=== PATIENT | female | born 1935 | race Caucasian/White ===

== ENCOUNTER → 2018-04-27 16:00 | Outpatient (CLI) | payer MEDICARE, SELFPAY | PROVIDERS: Family Provider Family Medicine; PCP Family Medicine | DX: Z23 Encounter for immunization (principal) | CPT/HCPCS: 90471; 90662 ==

== ENCOUNTER → 2018-12-01 11:22 | Outpatient (CLI) | payer MEDICARE, SELFPAY ==
--- NOTE | 2018-12-01 | DI.MG.S_ITS ---
BILATERAL DIGITAL SCREENING MAMMOGRAM 3D/2D WITH CAD: 12/01/2018 CLINICAL: Routine screening. Comparison is made to exams dated: 07/31/2017 mammogram, 07/17/2016 mammogram, and 07/16/2015 mammogram - [facility]. There are scattered fibroglandular elements in both breasts. Current study was also evaluated with a Computer Aided Detection (CAD) system. No significant masses, calcifications, or other findings are seen in either breast. There has been no significant interval change. IMPRESSION: NEGATIVE There is no mammographic evidence of malignancy. A 1 year screening mammogram is recommended. This exam was interpreted at Station ID: [id number]. NOTE: For mammograms, a report in lay terms will be sent to the patient. Approximately 15% of breast malignancies will not be visualized mammographically. In the management of a palpable breast mass, a negative mammogram must not discourage biopsy of a clinically suspicious lesion. Electronically Signed By: Elsa swann/latia:12/01/2018 13:39:00 letter sent: Normal Exam ACR BI-RADS Category 1: Negative [id number]
== END ==
PROVIDERS: PCP Family Medicine; Visit Provider Family Medicine
DX: Z12.31 Encounter for screening mammogram for malignant neoplasm of breast (principal)
CPT/HCPCS: 77063; 77067

== ENCOUNTER → 2019-05-31 12:38 | Outpatient (CLI) | payer MEDICARE, SELFPAY | PROVIDERS: PCP Family Medicine | DX: Z23 Encounter for immunization (principal) | CPT/HCPCS: 90471; 90662 ==

== ENCOUNTER → 2020-02-21 08:20 | Outpatient (CLI) | payer MEDICARE, OTHER, SELFPAY ==
[2020-02-21 09:48] LABS: Albumin 4.4 g/dL (3.5-5.0); BUN Creatinine Ratio 32.5 (6-22); Blood Urea Nitrogen 25 mg/dL (7-17); Calcium 9.6 mg/dL (8.4-10.2); Carbon Dioxide 28 mmol/L (22-32); Chloride 104 mmol/L (98-107); Estimated Glomerular Filt Rate > 60.0 mL/min (>60); Glucose 81 mg/dL (80-110); HEMOLYSIS < 15 (0-50); Phosphorous 4.4 mg/dL (2.8-4.1); Potassium 5.3 mmol/L (3.4-5.1); Sodium 138 mmol/L (137-145)
== END ==
PROVIDERS: PCP Family Medicine; Referring Provider Ophthalmology; Visit Provider Ophthalmology
DX: H53.431 Sector or arcuate defects, right eye (principal)
CPT/HCPCS: 36415; 80069

== ENCOUNTER → 2020-02-29 08:44 | Outpatient (CLI) | payer MEDICARE, OTHER, SELFPAY ==
--- NOTE | 2020-02-29 | DI.MRI.S_ITS ---
PROCEDURE: MR HEAD/BRAIN WO/W CON INDICATIONS: Sector or arcuate defects, unspecified eye TECHNIQUE: Noncontrast axial T1 spin echo, axial T2 fast spin echo, sagittal and axial FLAIR, coronal T2 fast spin echo, axial gradient echo, axial diffusion and ADC through the brain. After the administration of contrast, axial and coronal 3D VIBE or T1 spin echo with fat saturation through the brain. COMPARISON: [facility], CT, HEAD WITHOUT CONTRAST, 04/07/2017, 16:08. FINDINGS: Image quality: Excellent. CSF Spaces: Basal cisterns are patent. No extra-axial fluid collections. Ventricles are normal in size and shape. Brain: No midline shift. No intracranial bleeds or masses. No abnormal intracranial enhancement. The brainstem appears normal. Diffusion-weighted images demonstrate no acute ischemic insults. No chronic ischemic insults, but there is a mild to moderate degree of microvascular atherosclerotic change in the deep white matter of each hemisphere expected for age. Normal intravascular flow voids are present. Skull and face: Calvarial marrow is normal in signal. Orbits appear normal. Sinuses: Sinuses and mastoids appear clear. IMPRESSION: Source of current symptomatology is not filled. Cycr-al-ojzkctae microvascular atherosclerotic change is present within the deep white matter of each hemisphere, but no acute or subacute ischemic injuries seen nor is there impingement or abnormality involving the orbits bilaterally. Dictated by: Chan Ellsworth M.D. on 02/29/2020 at 10:09 Approved by: Chan Ellsworth M.D. on 02/29/2020 at 10:11
== END ==
PROVIDERS: PCP Family Medicine; Referring Provider Ophthalmology; Visit Provider Ophthalmology
DX: H53.453 Other localized visual field defect, bilateral (principal); H40.013 Open angle with borderline findings, low risk, bilateral; H35.373 Puckering of macula, bilateral; H53 Visual disturbances
CPT/HCPCS: 70553

== ENCOUNTER → 2020-04-30 14:24 | Outpatient (CLI) | payer MEDICARE, OTHER, SELFPAY ==
--- NOTE | 2020-04-30 14:27 | DI.RAD.S_ITS ---
PROCEDURE: XR SHOULDER LT MIN 2V INDICATIONS: LEFT SHOULDER PAIN TECHNIQUE: 3 views of the shoulder were acquired. COMPARISON: None. FINDINGS: Bones: No fracture. Moderate AC joint degeneration. Glenohumeral degenerative spurring and sclerosis. Soft tissues: No suspicious soft tissue calcifications. IMPRESSION: Degenerative changes as above. If the patient's pain or other symptoms persist, consider further evaluation with MRI Dictated by: Camron Manrique M.D. on 04/30/2020 at 16:08 Approved by: Camron Manrique M.D. on 04/30/2020 at 16:09
== END ==
PROVIDERS: PCP Family Medicine; Referring Provider Family Medicine; Visit Provider Family Medicine
DX: M25.512 Pain in left shoulder (principal); M19.012 Primary osteoarthritis, left shoulder
CPT/HCPCS: 73030

== ENCOUNTER 2020-05-30 09:00 | Outpatient (RCR) | payer MEDICARE, OTHER, SELFPAY ==
--- NOTE | 2020-05-25 10:00 | PT.OIE ---
Current Diagnoses Pain in left shoulder (05/25/20) Past Medical History (Last Reviewed 05/12/18 @ 11:30 by Reny Murillo DO) Aortic stenosis (Chronic 2012) Foot deformities, congenital (Chronic) Hyperlipidemia (Chronic) Osteoporosis (Chronic ~1989) Past Surgical History (Last Reviewed 05/12/18 @ 11:30 by Reny Murillo DO) History of aortic valve replacement with bioprosthetic valve (Resolved 2015) History of carpal tunnel release (Resolved) History of tonsillectomy (Resolved) Normal colonoscopy (Resolved 2005) Visit Care Team Role Provider Type Jonn Rangel MD Attending Provider Physician Primary Care Provider Referring Provider Specialty: [facility] Address: [address] [place] [address] Email: [email or web address] Physical Therapy Initial Evaluation PT-OP-A Visit Information Start: 05/25/20 07:31 Freq: Status: Active Protocol: Document 05/25/20 08:05 AMB (Rec: 05/28/20 07:58 AMB [email or web address]) Out-Patient Physical Therapy Visit Information Visit Information Visit Type Initial Evaluation Visit Start Time 08:15 Visit Stop Time 09:00 Total Visit Minutes 45 Visit Number 1 PT-OP-B Current Condition Start: 05/25/20 07:31 Freq: Status: Active Protocol: Document 05/25/20 08:05 AMB (Rec: 05/25/20 08:20 AMB [id number]) Current Condition History of Current Condition Onset Date a month ago Current Complaints L shoulder pain History of Current Condition Insidious onset L shoulder pain, has been getting better over the past few weeks. RHD. Aware of the left shoulder with ADLs, but overall things are getting better. Lives alone in a single level home, has neighbors that are quite helpful if she needs to lift something heavy. Treatment Goals Patient/Caregiver Goals Reduce pain in shoulder Prior Functional Status Baseline Function- ADL's Modified Independent Baseline Function- Mobility Modified Independent Current Functional Impairments (Reported) Functional Limitations- ADL's Needs to be careful with any reaching or lifting Personal Factors Other Personal Factors That May Effect Heart valve replacement, Therapy/Recovery osteoporosis, depression, osteoarthritis, on warfarin PT-OP-C Subjective Start: 05/25/20 07:31 Freq: Status: Active Protocol: Document 05/25/20 08:05 AMB (Rec: 05/28/20 07:58 AMB [email or web address]) Patient Questionnaires Lower Extremity Functional Scale LEFS Score 18 LEFS Impairment 1 to 19% Impaired (Score 63-79 ) OP-PT Pain Assessment Location Left Shoulder Intensity 3 Scale Used Numeric (0 - 10) PT-OP-F Manual Assessment Start: 05/25/20 07:31 Freq: Status: Active Protocol: Document 05/25/20 08:05 AMB (Rec: 05/28/20 07:58 AMB [email or web address]) Manual Assessments Soft Tissue Assessment Soft Tissue Mobility Assessment Tenderness at upper trap, lateral shoulder. Joint Mobility Assessment Joint Mobility Assessment Stiffness with all planes of joint mobilization, especially inferior PT-OP-K Range of Motion Start: 05/25/20 07:31 Freq: Status: Active Protocol: Document 05/25/20 08:15 AMB (Rec: 05/25/20 08:28 AMB [id number]) Shoulder Goniometric Range of Motion Shoulder Left Active Testing Position Sitting Flexion 105 Abduction 110 External Rotation at 90 degrees 60 Abduction Internal Rotation 70 Right Active Flexion 125 Abduction 135 PT-OP-L Special Tests Start: 05/25/20 07:31 Freq: Status: Active Protocol: Document 05/25/20 08:05 AMB (Rec: 05/28/20 07:58 AMB [email or web address]) Special Tests Shoulder Special Tests Empty Can Test Results + PT-OP-M Strength Start: 05/25/20 07:31 Freq: Status: Active Protocol: Document 05/25/20 08:05 AMB (Rec: 05/28/20 07:58 AMB [email or web address]) Shoulder Strength Shoulder Manual Muscle Testing Right Flexion 4 Good Extension 4 Good Abduction (C5) 4- Good- External Rotation 4- Good- Internal Rotation 4 Good Left Flexion 4 Good Extension 4 Good Abduction (C5) 4- Good- External Rotation 3 Fair Internal Rotation 4 Good PT-OP-Q Treatments Start: 05/25/20 07:31 Freq: Status: Active Protocol: Document 05/25/20 08:05 AMB (Rec: 05/28/20 07:58 AMB [email or web address]) Therapeutic Exercises Supine Exercises 1 Supine Exercise Name AAROM Comments wand flex. abd Standing Exercises 1 Standing Exercise Name isometrics Reps/Minutes 5x5 Comments ER/IR/ abd add PT-OP-T Assessment and Plan Start: 05/25/20 07:31 Freq: Status: Active Protocol: Document 05/25/20 08:05 AMB (Rec: 05/28/20 07:58 AMB [email or web address]) Physical Therapy Assessment Rehab Potential Rehabilitation Potential Good Evaluation Complexity Number of Personal Factors/Comorbidities 1-2 Number of Body Systems Impaired 4 or More Clinical Presentation at Evaluation Stable Impairments Impairments Functional Activities,Pain, Posture,ROM,Strength Goals Two Impairment Shoulder pain Short Term Goal (STG) Celena will improve her shoulder strength so that she can lift 5 pounds from waist to shoulder height without shoulder pain. STG Duration 3 weeks Poultry Farm Manager Goal (LTG) Celena will sleep without left shoulder pain. LTG Duration 6 weeks One Impairment Shoulder ROM Short Term Goal (STG) Celena will improve her left shoulder AROM flexion to 125 degrees without an increase in pain. STG Duration 3 weeks Custodial Goal (LTG) Celena will improve her left shoulder AROM abduction to 135 degrees without an increase in pain. LTG Duration 6 weeks Assessment Summary Assessment Celena attends physical therapy with insidious onset shoulder pain that has been improving since she saw her physician. Likely considerable arthritis and tendonitis bilaterally, but focus will be calming down the symptoms and returning to the function that she needs to live independently. We will instruct her in a HEP to strengthen and stretch her shoulder so that she can lift her groceries, cook, and dress herself without L shoulder pain. Physical Therapy Plan Frequency and Duration Frequency of Treatment 2x/Week Duration of Treatment 6 weeks Plan of Care Start Date 05/25/20 Plan of Care End Date 07/06/20 Therapeutic Interventions Therapeutic Interventions Home Exercise Program,Joint Mobilizations,Manual Therapy, Neuromuscular Re-education, Self-Care/Home Management, Therapeutic Activities, Therapeutic Exercises Modalities Cold Pack/Ice Massage,Electric Stimulation,Hot Packs, Ultrasound Next Visit Focus/Plan Next Note Type Treatment Note Next Visit Plan Assess initial HEP of AAROM and isometrics, progress as tolerated.
--- NOTE | 2020-05-25 10:00 | PT.OPPOC ---
Physical, Occupational & Speech Therapy At [facility] Current Diagnoses Pain in left shoulder (05/25/20) Visit Care Team Role Provider Type Jonn Rangel MD Attending Provider Physician Primary Care Provider Referring Provider Specialty: Family Practice Address: [address] [place] [address], [id number] Email: [email or web address] Plan Of Care PT-OP-T Assessment and Plan Start: 05/25/20 07:31 Freq: Status: Active Protocol: Document 05/25/20 08:05 AMB (Rec: 05/28/20 07:58 AMB [email or web address]) Physical Therapy Assessment Rehab Potential Rehabilitation Potential Good Evaluation Complexity Number of Personal Factors/Comorbidities 1-2 Number of Body Systems Impaired 4 or More Clinical Presentation at Evaluation Stable Impairments Impairments Functional Activities,Pain, Posture,ROM,Strength Goals Two Impairment Shoulder pain Short Term Goal (STG) Celena will improve her shoulder strength so that she can lift 5 pounds from waist to shoulder height without shoulder pain. STG Duration 3 weeks Retirement Goal (LTG) Celena will sleep without left shoulder pain. LTG Duration 6 weeks One Impairment Shoulder ROM Short Term Goal (STG) Celena will improve her left shoulder AROM flexion to 125 degrees without an increase in pain. STG Duration 3 weeks Consumer Relations Specialist Goal (LTG) Celena will improve her left shoulder AROM abduction to 135 degrees without an increase in pain. LTG Duration 6 weeks Assessment Summary Assessment Celena attends physical therapy with insidious onset shoulder pain that has been improving since she saw her physician. Likely considerable arthritis and tendonitis bilaterally, but focus will be calming down the symptoms and returning to the function that she needs to live independently. We will instruct her in a HEP to strengthen and stretch her shoulder so that she can lift her groceries, cook, and dress herself without L shoulder pain. Physical Therapy Plan Frequency and Duration Frequency of Treatment 2x/Week Duration of Treatment 6 weeks Plan of Care Start Date 05/25/20 Plan of Care End Date 07/06/20 Therapeutic Interventions Therapeutic Interventions Home Exercise Program,Joint Mobilizations,Manual Therapy, Neuromuscular Re-education, Self-Care/Home Management, Therapeutic Activities, Therapeutic Exercises Modalities Cold Pack/Ice Massage,Electric Stimulation,Hot Packs, Ultrasound Next Visit Focus/Plan Next Note Type Treatment Note Next Visit Plan Assess initial HEP of AAROM and isometrics, progress as tolerated. Plan of Care Dates Plan of Care Start Date 05/25/20 Plan of Care End Date 07/06/20 Electronically Signed by: Lynsey Chen, PT 05/28/20 [id number] Please Sign and Return: I have reviewed this Plan of Care and certify that the skilled therapy services above are required to meet the patient?s needs. Physician Signature Date Printed Name and Credentials Clinical Instructor Signature Printed Name and Credentials
--- NOTE | 2020-05-30 10:04 | PT.OTN ---
Current Diagnoses Pain in left shoulder (05/30/20) Physical Therapy Treatment Note PT-OP-A Visit Information Start: 05/25/20 07:31 Freq: Status: Active Protocol: Document 05/30/20 09:06 AMB (Rec: 05/30/20 09:41 AMB [id number]) Out-Patient Physical Therapy Visit Information Visit Information Visit Type Treatment Note Visit Start Time 09:05 Visit Stop Time 09:45 Total Visit Minutes 40 Visit Number 2 PT-OP-B Current Condition Start: 05/25/20 07:31 Freq: Status: Active Protocol: Document 05/25/20 08:05 AMB (Rec: 05/25/20 08:20 AMB [id number]) Current Condition History of Current Condition Onset Date a month ago Current Complaints L shoulder pain History of Current Condition Insidious onset L shoulder pain, has been getting better over the past few weeks. RHD. Aware of the left shoulder with ADLs, but overall things are getting better. Lives alone in a single level home, has neighbors that are quite helpful if she needs to lift something heavy. Treatment Goals Patient/Caregiver Goals Reduce pain in shoulder Prior Functional Status Baseline Function- ADL's Modified Independent Baseline Function- Mobility Modified Independent Current Functional Impairments (Reported) Functional Limitations- ADL's Needs to be careful with any reaching or lifting Personal Factors Other Personal Factors That May Effect Heart valve replacement, Therapy/Recovery osteoporosis, depression, osteoarthritis, on warfarin PT-OP-C Subjective Start: 05/25/20 07:31 Freq: Status: Active Protocol: Document 05/30/20 09:05 AMB (Rec: 05/30/20 10:04 AMB [id number]) OP-PT Subjective Patient Comments Patient Comments Celena states she is doing well and not really having shoulder pain at this time. PT-OP-F Manual Assessment Start: 05/25/20 07:31 Freq: Status: Active Protocol: Document 05/25/20 08:05 AMB (Rec: 05/28/20 07:58 AMB [email or web address]) Manual Assessments Soft Tissue Assessment Soft Tissue Mobility Assessment Tenderness at upper trap, lateral shoulder. Joint Mobility Assessment Joint Mobility Assessment Stiffness with all planes of joint mobilization, especially inferior PT-OP-K Range of Motion Start: 05/25/20 07:31 Freq: Status: Active Protocol: Document 05/25/20 08:15 AMB (Rec: 05/25/20 08:28 AMB [id number]) Shoulder Goniometric Range of Motion Shoulder Left Active Testing Position Sitting Flexion 105 Abduction 110 External Rotation at 90 degrees 60 Abduction Internal Rotation 70 Right Active Flexion 125 Abduction 135 PT-OP-L Special Tests Start: 05/25/20 07:31 Freq: Status: Active Protocol: Document 05/25/20 08:05 AMB (Rec: 05/28/20 07:58 AMB [email or web address]) Special Tests Shoulder Special Tests Empty Can Test Results + PT-OP-M Strength Start: 05/25/20 07:31 Freq: Status: Active Protocol: Document 05/25/20 08:05 AMB (Rec: 05/28/20 07:58 AMB [email or web address]) Shoulder Strength Shoulder Manual Muscle Testing Right Flexion 4 Good Extension 4 Good Abduction (C5) 4- Good- External Rotation 4- Good- Internal Rotation 4 Good Left Flexion 4 Good Extension 4 Good Abduction (C5) 4- Good- External Rotation 3 Fair Internal Rotation 4 Good PT-OP-Q Treatments Start: 05/25/20 07:31 Freq: Status: Active Protocol: Document 05/30/20 09:05 AMB (Rec: 05/30/20 10:04 AMB [id number]) Therapeutic Exercises Standing Exercises 3 Standing Exercise Name doorway stretch Reps/Minutes 30x3 2 Standing Exercise Name t band row Equipment Used #2 t band Reps/Minutes 2x10 1 Standing Exercise Name isometrics Reps/Minutes 5x5 Comments ER/IR/ abd add PT-OP-T Assessment and Plan Start: 05/25/20 07:31 Freq: Status: Active Protocol: Document 05/30/20 09:06 AMB (Rec: 05/30/20 09:41 AMB [id number]) Physical Therapy Assessment Goals Two Impairment Shoulder pain Short Term Goal (STG) Celena will improve her shoulder strength so that she can lift 5 pounds from waist to shoulder height without shoulder pain. STG Duration MET Nursing Home Goal (LTG) Celena will sleep without left shoulder pain. LTG Duration MET One Impairment Shoulder ROM Short Term Goal (STG) Celena will improve her left shoulder AROM flexion to 125 degrees without an increase in pain. STG Duration MET Environmental Health And Safety Leader Goal (LTG) Celena will improve her left shoulder AROM abduction to 135 degrees without an increase in pain. LTG Duration MET Assessment Summary Assessment Celena attends physical therapy without shoulder pain at this time. She is compliant with her HEP, answered all questions today. She can still feel her shoulder, but ROM, while still limited is fairly equal to the otherside. Since she has met all her goals and feels that she will be able to continue to improve with the exercises she is doing, she is discharged at this time. Physical Therapy Plan Discharge Physical Therapy Discharge Reasons Goals Met
== END 2020-05-31 09:44 | disposition home or self-care (01) ==
LOC: PHYS 09:00
PROVIDERS: PCP Family Medicine; Referring Provider Family Medicine; Visit Provider Family Medicine
DX: M25.512 Pain in left shoulder (principal)
CPT/HCPCS: 97110; 97161

== ENCOUNTER → 2020-05-31 00:12 | Outpatient (CLI) | payer MEDICARE, OTHER, SELFPAY | PROVIDERS: PCP Family Medicine; Referring Provider Internal Medicine; Visit Provider Internal Medicine | DX: Z23 Encounter for immunization (principal) | CPT/HCPCS: 90471; 90662 ==

== ENCOUNTER → 2020-09-14 15:37 | Outpatient (CLI) | payer MEDICARE, OTHER, SELFPAY ==
[2020-09-14] MEDS: COVID-19 VACC #1, MRNA(MOD) 100 MCG/0.5 ML VIAL IM (16:10)
== END ==
PROVIDERS: PCP Family Medicine; Visit Provider Internal Medicine
DX: Z23 Encounter for immunization (principal)
CPT/HCPCS: 0011A; 91301

== ENCOUNTER → 2020-09-18 10:33 | Outpatient (CLI) | payer MEDICARE, OTHER, SELFPAY ==
[2020-09-18 11:44] LABS: Add Manual Diff / Slide Review NO; Basophils Absolute Auto 100 /uL (0-100); Basophils Percent Auto 1.1 % (0-2); Eosinophils Absolute Auto 400 /uL (0-450); Hematocrit 37.2 % (36-46); Hemoglobin 12.3 g/dL (12.0-16.0); Lymphocytes Absolute Auto 900 /uL (1100-4500); Lymphocytes Percent Auto 16.5 % (25-40); Mean Corpuscular HGB Conc 33.2 % (30-36); Mean Corpuscular Hemoglobin 29.4 PG (26-34); Mean Corpuscular Volume 88.7 fL (80-100); Monocytes Absolute Auto 600 /uL (0-900); Monocytes Percent Auto 11.9 % (3-14); Neutrophils Absolute Auto 3400 /uL (1500-7000); Neutrophils Percent Auto 63.5 % (50-75); Platelet Count 168 X10^3/uL (150-400); White Blood Cell Count 5.4 X10^3/uL (4.5-11.0)
[2020-09-18 11:54] LABS: Alanine Aminotransferase 17 IU/L (<35); Albumin 4.1 g/dL (3.5-5.0); Albumin Globulin Ratio 1.2 (1.0-2.8); Alkaline Phosphatase 68 U/L (38-126); Aspartate Aminotransferase 29 IU/L (14-36); BUN Creatinine Ratio 31.8 (6-22); Bilirubin Total 0.6 mg/dL (0.2-1.3); Blood Urea Nitrogen 28 mg/dL (7-17); Calcium 9.3 mg/dL (8.4-10.2); Carbon Dioxide 30 mmol/L (22-32); Chloride 103 mmol/L (98-107); Estimated Glomerular Filt Rate > 60.0 mL/min (>60); Globulin 3.3 g/dL (1.7-4.1); Glucose 92 mg/dL (80-110); HEMOLYSIS < 15 (0-50); Magnesium 2.1 mg/dL (1.6-2.3); Potassium 4.6 mmol/L (3.4-5.1); Sodium 136 mmol/L (137-145); Total Protein 7.4 g/dL (6.3-8.2)
[2020-09-18 11:59] LABS: Rheumatoid Factor < 8.6 IU/mL (<12.0)
[2020-09-18 12:01] LABS: NT-proBNP (BNP-Adult 18+) 1030 pg/mL (<450)
[2020-09-18 12:38] LABS: Thyroid Stimulating Hormone 2.69 uIU/mL (0.47-4.68)
[2020-09-19 17:51] LABS: ANA Screen, IFA Negative (.)
== END ==
PROVIDERS: PCP Family Medicine; Referring Provider Internal Medicine Cardiovascular Disease; Visit Provider Internal Medicine Cardiovascular Disease
DX: R06.02 Shortness of breath (principal); I48.0 Paroxysmal atrial fibrillation; I36.1 Nonrheumatic tricuspid (valve) insufficiency; I49.1 Atrial premature depolarization; I73.00 Raynaud's syndrome without gangrene
CPT/HCPCS: 36415; 80053; 83735; 83880; 84443; 85025; 86038; 86430

== ENCOUNTER → 2020-09-27 13:39 | Outpatient (CLI) | payer MEDICARE, OTHER, SELFPAY ==
[2020-09-27 15:21] LABS: Blood Urea Nitrogen 43 mg/dL (7-17); Carbon Dioxide 32 mmol/L (22-32); Chloride 103 mmol/L (98-107); Potassium 4.3 mmol/L (3.4-5.1); Sodium 138 mmol/L (137-145)
[2020-09-27 15:22] LABS: BUN Creatinine Ratio 36.8 (6-22); Calcium 9.2 mg/dL (8.4-10.2); Estimated Glomerular Filt Rate 44.2 mL/min (>60); Glucose 110 mg/dL (80-110); HEMOLYSIS < 15 (0-50)
== END ==
PROVIDERS: PCP Family Medicine; Referring Provider Internal Medicine Cardiovascular Disease; Visit Provider Internal Medicine Cardiovascular Disease
DX: I50.30 Unspecified diastolic (congestive) heart failure (principal)
CPT/HCPCS: 36415; 80048

== ENCOUNTER → 2020-10-12 08:32 | Outpatient (CLI) | payer MEDICARE, OTHER, SELFPAY ==
[2020-10-12] MEDS: COVID-19 VACC #2, MRNA(MOD) 100 MCG/0.5 ML VIAL IM (08:37)
== END ==
PROVIDERS: PCP Family Medicine; Visit Provider Internal Medicine
DX: Z23 Encounter for immunization (principal)
CPT/HCPCS: 0012A; 91301

== ENCOUNTER → 2020-10-17 15:04 | Outpatient (CLI) | payer MEDICARE, OTHER, SELFPAY ==
[2020-10-17 16:21] LABS: BUN Creatinine Ratio 32.9 (6-22); Blood Urea Nitrogen 27 mg/dL (7-17); Calcium 9.2 mg/dL (8.4-10.2); Carbon Dioxide 30 mmol/L (22-32); Chloride 103 mmol/L (98-107); Estimated Glomerular Filt Rate > 60.0 mL/min (>60); Glucose 108 mg/dL (80-110); HEMOLYSIS < 15 (0-50); Potassium 4.4 mmol/L (3.4-5.1); Sodium 137 mmol/L (137-145)
== END ==
PROVIDERS: PCP Family Medicine; Referring Provider Internal Medicine Cardiovascular Disease; Visit Provider Internal Medicine Cardiovascular Disease
DX: I48.0 Paroxysmal atrial fibrillation (principal)
CPT/HCPCS: 36415; 80048

== ENCOUNTER → 2020-10-22 08:05 | Outpatient (CLI) | payer MEDICARE, OTHER, SELFPAY ==
--- NOTE | 2020-10-22 08:06 | DI.ECHO.S_ITS ---
[facility]---------+ [facility] +---------+ : : [address] [place] : : : : [id number] : : : : Phone: [phone]+ Echocardiogram Report + + :Name: CRISTI MCLAIN Study Date: 10/22/2020 Height: 61.5 in: :[facility] ReadingLocation: Weight: 141 lb : : Gender: Female BSA: 1.6 m2 : :: 1935 Age: 85 yrs BP: 118/81 mmHg: :Reason For Study: SHORTNESS OF BREATH : :Ordering Physician: YVAN, : :CHARO Performed By: Jadyn Barrera : :Referring: [employer] : + + Interpretation Summary The patient was in atrial fibrillation with heart rates between 85-104 bpm during the exam. The left ventricular cavity is small. The ejection fraction is estimated to be 55-60%. The right ventricle is mildly dilated. Right ventricular systolic function is at the lower limits of normal. A patent foramen ovale is present. There is mild mitral regurgitation. Compared to the prior echo study, there has been no change in the severity of mitral regurgitation. There is a bioprosthetic aortic valve. The prosthetic aortic valve is well-seated. There is normal prosthetic aortic valve function. The tricuspid annulus is dilated. There is a mal-coaptation of tricuspid leaflets. There is severe tricuspid regurgitation. Compared to the prior echo exam, there has been an increase in TR severity. Previously moderate to severe TR and pulmonary artery systolic pressure about 34 mmHg. The right ventricular systolic pressure is estimated to be at least 46 mmHg based on an estimated right atrial pressure of 15 mm Hg. Compared to the prior echo exam, there has been an increase in the severity of pulmonary hypertension. Procedure: A two-dimensional transthoracic echocardiogram with color flow and Doppler was performed. The study quality was technically adequate. Comparison is made with the echocardiogram of 05/11/2017. The patient was in atrial fibrillation with heart rates between 85-104 bpm during the exam. Left Ventricle: The estimated left ventricular end diastolic volume is 35 ml. There is mild concentric left ventricular hypertrophy. The left ventricular cavity is small. There is no thrombus. The ejection fraction is estimated to be 55-60%. The interventricular septum is flattened, consistent with a right ventricular pressure overload condition. Diastolic function could not be accurately assessed due to atrial fibrillation. E/E' med: 15.9. Right Ventricle: The right ventricle is mildly dilated. Right ventricular systolic function is at the lower limits of normal. Atria: The left atrium is severely dilated. The left atrium has remained unchanged in size since the prior echo exam. The right atrium is severely dilated. The right atrium has mildly increased in size since the prior echo exam. A patent foramen ovale is present. Mitral Valve: There is moderate to severe mitral annular calcification. The mitral valve leaflets appear mildly thickened, but open well. No significant mitral valve stenosis. There is mild mitral regurgitation. Compared to the prior echo study, there has been no change in the severity of mitral regurgitation. Aortic Valve: There is a bioprosthetic aortic valve. The prosthetic aortic valve is well-seated. There is probable normal prosthetic aortic valve function. The aortic valve mean gradient is 5.2 mmHg. The peak aortic velocity is 1.5 m/sec. No aortic regurgitation is present. Tricuspid Valve: The tricuspid annulus is dilated. There is a mal-coaptation of tricuspid leaflets. The right ventricular systolic pressure is estimated to be at least 46 mmHg based on an estimated right atrial pressure of 15 mm Hg. There is severe tricuspid regurgitation. Compared to the prior echo exam, there has been an increase in TR severity. Compared to the prior echo exam, there has been an increase in the severity of pulmonary hypertension. Pulmonic Valve: The pulmonic valve is not well seen, but is grossly normal. There is trace pulmonic regurgitation. Great Vessels: The aortic root is normal size. The ascending aorta could not be visualized. The IVC is dilated (diameter is greater than 2.1 cm) and it collapses less than 50% with a sniff. This suggests a high right atrial pressure of 15 mm Hg. Pericardium/ Pleura There is no pericardial effusion. There is no pleural effusion. MMode/2D Measurements & Calculations LVIDd: 3.9 cm LVOT diam: 2.0 cm LVIDs: 2.4 cm Ao root diam: 3.1 cm FS: 38.0 % Ao Arch Diam (Prox Trans): 2.1 cm EPSS: 1.3 cm IVSd: 1.3 cm LVPWd: 1.2 cm LV tinajero. diameter/BSA (cm/m^2): 2.4 LV sys. diameter/BSA (cm/m^2): 1.5 LA A2 area: 23.7 cm2 RA long axis: 6.7 cm LA A4 area: 27.5 cm2 RA area: 25.4 cm2 LA length (vol): 6.4 cm RA vol: 82.4 ml LA vol: 86.0 ml RA : 50.3 ml/m2 LA vol index: 52.5 ml/m2 IVC diam: 2.1 cm RVD1 (basal): 3.1 cm TAPSE: 1.7 cm Doppler Measurements & Calculations Ao V2 max: 151.2 cm/sec LVOT Max Candelario: 88.0 cm/sec Ao V2 mean: 107.0 cm/sec LV V1 max P.1 mmHg Ao max P.1 mmHg LV V1 VTI: 14.9 cm Ao mean P.2 mmHg LACIE(I,D): 1.9 cm2 Ao V2 VTI: 24.2 cm LACIE(V,D): 1.8 cm2 sev ratio: 0.62 LACIE indexed to BSA (cm^2/m^2): 1.1 MV E max candelario: 120.5 cm/sec TR max candelario: 279.2 cm/sec MV A max candelario: 1.4 cm/sec TR max P.2 mmHg MV E/A: 85.6 PA V2 max: 50.0 cm/sec Med Peak E' Candelario: 7.6 cm/sec PA V2 mean: 34.3 cm/sec E/E' med: 15.9 PA mean P.54 mmHg Lat Peak E' Candelario: 12.2 cm/sec PA pr(Accel): 39.6 mmHg E/E' lat: 9.9 E/e' average: 12.9 MV dec time: 0.23 sec SV(LVOT): 45.3 ml Reading Physician:06:19 PM
== END ==
PROVIDERS: PCP Family Medicine; Referring Provider Internal Medicine Cardiovascular Disease; Visit Provider Internal Medicine Cardiovascular Disease
DX: I08.1 Rheumatic disorders of both mitral and tricuspid valves (principal); Q21.1 Atrial septal defect; R06.02 Shortness of breath; I48.0 Paroxysmal atrial fibrillation; Z95.2 Presence of prosthetic heart valve
CPT/HCPCS: 93306

== ENCOUNTER → 2021-01-15 09:43 | Outpatient (CLI) | payer MEDICARE, OTHER, SELFPAY ==
[2021-01-15 11:31] LABS: Alanine Aminotransferase 21 IU/L (<35); Albumin 3.9 g/dL (3.5-5.0); Albumin Globulin Ratio 1.2 (1.0-2.8); Alkaline Phosphatase 69 U/L (38-126); Aspartate Aminotransferase 38 IU/L (14-36); Bilirubin Total 0.5 mg/dL (0.2-1.3); Bilirubin Unconjugated 0.5 mg/dL (0.0-1.1); Globulin 3.2 g/dL (1.7-4.1); HEMOLYSIS < 15 (0-50); Total Protein 7.1 g/dL (6.3-8.2)
[2021-01-15 20:58] LABS: Free T4, Direct Thyroxine 1.06 ng/dL (0.78-2.19)
== END ==
PROVIDERS: PCP Family Medicine; Referring Provider Internal Medicine Cardiovascular Disease; Visit Provider Internal Medicine Cardiovascular Disease
DX: Z51.81 Encounter for therapeutic drug level monitoring (principal); I10 Essential (primary) hypertension; E03.9 Hypothyroidism, unspecified; Z79.899 Other long term (current) drug therapy
CPT/HCPCS: 36415; 80076; 84439; 84443

== ENCOUNTER → 2021-03-04 16:25 | Outpatient (CLI) | payer MEDICARE, OTHER, SELFPAY ==
[2021-03-04 17:33] LABS: Add Manual Diff / Slide Review NO; Basophils Absolute Auto 100 /uL (0-100); Basophils Percent Auto 1.3 % (0-2); Eosinophils Absolute Auto 400 /uL (0-450); Hematocrit 36.2 % (36-46); Hemoglobin 12.1 g/dL (12.0-16.0); Lymphocytes Absolute Auto 1200 /uL (1100-4500); Lymphocytes Percent Auto 16.2 % (25-40); Mean Corpuscular HGB Conc 33.3 % (30-36); Mean Corpuscular Hemoglobin 29.6 PG (26-34); Mean Corpuscular Volume 88.7 fL (80-100); Monocytes Absolute Auto 800 /uL (0-900); Monocytes Percent Auto 10.7 % (3-14); Neutrophils Absolute Auto 4800 /uL (1500-7000); Neutrophils Percent Auto 66.8 % (50-75); Platelet Count 191 X10^3/uL (150-400); Red Blood Cell Count 4.08 X10^6/uL (4.0-5.2); Red Cell Distribution Width 14.1 % (11.6-14.8); White Blood Cell Count 7.2 X10^3/uL (4.5-11.0)
[2021-03-04 18:07] LABS: Alanine Aminotransferase 19 IU/L (<35); Albumin 4.1 g/dL (3.5-5.0); Albumin Globulin Ratio 1.2 (1.0-2.8); Alkaline Phosphatase 84 U/L (38-126); Aspartate Aminotransferase 30 IU/L (14-36); BUN Creatinine Ratio 24.3 (6-22); Bilirubin Total 0.5 mg/dL (0.2-1.3); Blood Urea Nitrogen 26 mg/dL (7-17); Calcium 9.2 mg/dL (8.4-10.2); Carbon Dioxide 26 mmol/L (22-32); Chloride 105 mmol/L (98-107); Globulin 3.4 g/dL (1.7-4.1); Glucose 83 mg/dL (80-110); HEMOLYSIS < 15 (0-50); Potassium 4.6 mmol/L (3.4-5.1); Sodium 137 mmol/L (137-145); Total Protein 7.5 g/dL (6.3-8.2)
[2021-03-05 15:42] LABS: NT-proBNP (BNP-Adult 18+) 1290 pg/mL (<450)
== END ==
PROVIDERS: PCP Family Medicine; Referring Provider Family Medicine; Visit Provider Family Medicine
DX: F33.42 Major depressive disorder, recurrent, in full remission; I48.91 Unspecified atrial fibrillation; Q22.9 Congenital malformation of tricuspid valve, unspecified; R06.02 Shortness of breath
CPT/HCPCS: 36415; 80053; 83880; 85025

== ENCOUNTER → 2021-03-05 15:12 | Outpatient (CLI) | payer MEDICARE, OTHER, SELFPAY ==
--- NOTE | 2021-03-05 15:22 | DI.RAD.S_ITS ---
PROCEDURE: XR CHEST 2V INDICATIONS: abdominal distention TECHNIQUE: 2 views of the chest were acquired. COMPARISON: [facility], CHEST 2 VIEW, 05/11/2017, 14:32. [facility], , CHEST 2 VIEW, 12/01/2016, 10:22. FINDINGS: Surgical changes and devices: Sternotomy wires, aortic valve expandable stent annulus appears present.. Lungs and pleura: Lungs are clear. No pleural effusions or pneumothorax. Mediastinum: Mediastinal contours are normal. Heart size is normal. Bones and chest wall: No suspicious bony abnormalities. Soft tissues appear unremarkable. IMPRESSION: No subdiaphragmatic free air found, no pneumonia seen. Prior sternotomy and aortic valve replacement. Dictated by: Chan Ellsworth M.D. on 03/05/2021 at 16:44 Approved by: Chan Ellsworth M.D. on 03/05/2021 at 16:44
== END ==
PROVIDERS: PCP Family Medicine; Referring Provider Family Medicine; Visit Provider Family Medicine
DX: Q22.9 Congenital malformation of tricuspid valve, unspecified (principal); R14.0 Abdominal distension (gaseous); Z95.2 Presence of prosthetic heart valve
CPT/HCPCS: 71046

== ENCOUNTER → 2021-04-22 10:21 | Outpatient (CLI) | payer MEDICARE, OTHER, SELFPAY ==
[2021-04-22 13:02] LABS: COVID19 -Nasal RAPID Negative (Negative)
== END ==
PROVIDERS: PCP Family Medicine; Visit Provider Nurse Practitioner Family
DX: Z01.812 Encounter for preprocedural laboratory examination (principal); Z20.822 Contact with and (suspected) exposure to COVID-19
CPT/HCPCS: 87635; C9803

== ENCOUNTER → 2021-05-20 15:36 | Outpatient (CLI) | payer MEDICARE, OTHER, SELFPAY ==
[2021-05-20 17:49] LABS: COVID19 -Nasal RAPID POSITIVE (Negative)
== END ==
PROVIDERS: PCP Family Medicine; Visit Provider Nurse Practitioner Family
DX: U07.1 COVID-19 (principal)
CPT/HCPCS: 87635

== ENCOUNTER → 2021-05-22 15:34 | Outpatient (CLI) | payer MEDICARE, OTHER, SELFPAY ==
[2021-05-22 16:20] VITALS: BP 124/74; PULSE 90; RESP 18; TEMP 36.7; O2SAT 98
[2021-05-22] MEDS: CASIRIVIMAB/IMDEVIMAB 10 ML in SODIUM CHLORIDE 0.9% 100 ML 220 ML IV (16:59)
[2021-05-22 17:32] VITALS: BP 124/81; PULSE 77; RESP 18; TEMP 36.6; O2SAT 100
[2021-05-22 18:25] VITALS: BP 119/58; PULSE 86; RESP 17; TEMP 36.4; O2SAT 98
[2021-05-22 19:25] VITALS: BP 124/68; PULSE 82; RESP 17; TEMP 36.3; O2SAT 98
--- NOTE | 2021-05-22 19:43 | PC.NURSE ---
infusion started at 1715 and completed at 1825. VSS. no signs/symptoms of adverse reaction. Educational paperwork provided. IV to Lauri URBINA DC'[facility] prior to pt leaving hospital.
== END ==
LOC: INF 15:34 → LAB 08-01 15:41
PROVIDERS: PCP Family Medicine; Referring Provider Family Medicine; Visit Provider Family Medicine
DX: U07.1 COVID-19 (principal)
CPT/HCPCS: M0243; Q0244

== ENCOUNTER → 2021-06-05 14:59 | Outpatient (CLI) | payer MEDICARE, OTHER, SELFPAY ==
--- NOTE | 2021-06-05 15:00 | DI.ECHO.S_ITS ---
[facility] +---------+ : : [address] [place] : : : : [phone] : : : : Phone: [phone]+ Echocardiogram Report + + :Name: CRISTI MCLAIN Study Date: 06/05/2021 Height: 60.5 in: :[facility] ReadingLocation: Weight: 136 lb : : Gender: Female BSA: 1.6 m2 : :: 1935 Age: 85 yrs BP: 110/74 mmHg: :Reason For Study: TRICUSPID VALVE REPAIR : :Ordering Physician: HENRRY, : :ELO Performed By: Jadyn Barrera : :Referring: ELO SALES : + + Interpretation Summary The left ventricle is normal in size. The ejection fraction is estimated to be 55-60%. There has been no significant change in LVEF since the previous exam. E/E' med: 30.0. Previous E/E' med: 15.9 The right ventricle is normal size. Right ventricular size has decreased since the prior echo exam. Right ventricular systolic function is mildly reduced. There has been no significant change in RV function since the previous study. There is mild to moderate mitral regurgitation. Compared to the prior echo study, there has been an increase in the severity of mitral regurgitation. There is a bioprosthetic aortic valve. The prosthetic aortic valve is well-seated. The gradients through the prosthetic aortic valve are within the normal range for this type of valve. A tricuspid valve clip is present. Tricuspid valve clip is new finding. There is moderate tricuspid regurgitation. Compared to the prior echo exam, there has been a decrease in TR severity. The right ventricular systolic pressure is estimated to be at least 37 mmHg based on an estimated right atrial pressure of 8 mm Hg. Compared to the prior echo exam, there has been a decrease in the severity of pulmonary hypertension. Mild atherosclerotic plaque(s) in the aortic arch. Procedure: A two-dimensional transthoracic echocardiogram with color flow and Doppler was performed. The study quality was technically adequate. Comparison is made with the echocardiogram of 10/22/2020. The patient was in atrial fibrillation with controlled ventricular rate during the exam. Left Ventricle: The left ventricle is normal in size. Proximal septal thickening is noted. There is no echo evidence for significant left ventricular outflow tract obstruction. There is no thrombus. The ejection fraction is estimated to be 55-60%. There has been no significant change since the previous exam. There are no focal wall motion abnormalities. E/E' med: 30.0. Right Ventricle: The right ventricle is normal size. Right ventricular size has decreased since the prior echo exam. Right ventricular systolic function is mildly reduced. There has been no significant change since the previous study. Atria: The left atrium is severely dilated. Both atria have remained unchanged in size since the prior echo exam. The right atrium is severely dilated. There is no Doppler evidence for an interatrial shunt. Mitral Valve: There is moderate to severe mitral annular calcification. Mitral leaflets appears to be thickened without any significant mitral stenosis. No significant mitral valve stenosis. There is mild to moderate mitral regurgitation. Compared to the prior echo study, there has been an increase in the severity of mitral regurgitation. Aortic Valve: There is a bioprosthetic aortic valve. The prosthetic aortic valve is well-seated. The gradients through the prosthetic aortic valve are within the normal range for this type of valve. There is no aortic valve stenosis. No aortic regurgitation is present. Tricuspid Valve: A tricuspid valve clip is present. There is moderate tricuspid regurgitation. The right ventricular systolic pressure is estimated to be at least 37 mmHg based on an estimated right atrial pressure of 8 mm Hg. Compared to the prior echo exam, there has been a decrease in TR severity. Compared to the prior echo exam, there has been a decrease in the severity of pulmonary hypertension. Pulmonic Valve: The pulmonic valve leaflets are thin and pliable; valve motion is normal. There is trace pulmonic regurgitation. Great Vessels: The aortic root is not well visualized but is probably normal size. The ascending aorta could not be visualized. Mild atherosclerotic plaque (s) in the aortic arch. The IVC is dilated (diameter is greater than 2.1 cm) yet it collapses greater than 50% with a sniff. This suggests a right atrial pressure of 8 mm Hg. Pericardium/ Pleura There is no pericardial effusion. There is no pleural effusion. MMode/2D Measurements & Calculations LVIDd: 4.7 cm LVOT diam: 1.9 cm LVIDs: 3.5 cm Ao Arch Diam (Prox Trans): 2.2 cm FS: 27.3 % IVSd: 0.81 cm LVPWd: 0.75 cm LV tinajero. diameter/BSA (cm/m^2): 3.0 LV sys. diameter/BSA (cm/m^2): 2.2 LA A2 area: 28.1 cm2 RA long axis: 7.1 cm LA A4 area: 31.7 cm2 RA area: 27.1 cm2 LA length (vol): 6.8 cm RA vol: 88.6 ml LA vol: 110.5 ml RA : 55.6 ml/m2 LA vol index: 69.3 ml/m2 IVC diam: 2.1 cm RVD1 (basal): 3.2 cm TAPSE: 1.5 cm Doppler Measurements & Calculations Ao V2 max: 133.6 cm/sec LVOT Max Candelario: 77.3 cm/sec Ao V2 mean: 94.6 cm/sec LV V1 max P.4 mmHg Ao max P.1 mmHg LV V1 VTI: 15.2 cm Ao mean P.0 mmHg LACIE(I,D): 1.5 cm2 Ao V2 VTI: 28.0 cm LACIE(V,D): 1.6 cm2 sev ratio: 0.54 LACIE indexed to BSA (cm^2/m^2): 0.94 MV E max candelario: 124.4 cm/sec TR max candelario: 269.8 cm/sec MV A max candelario: 2.8 cm/sec TR max P.1 mmHg MV E/A: 43.7 PA V2 max: 56.9 cm/sec Med Peak E' Candelario: 4.2 cm/sec PA V2 mean: 43.8 cm/sec E/E' med: 30.0 PA mean P.81 mmHg Lat Peak E' Candelario: 9.1 cm/sec PA pr(Accel): 46.5 mmHg E/E' lat: 13.6 E/e' average: 21.8 MV dec time: 0.21 sec MVA(VTI): 1.5 cm2 MV V2 mean: 63.5 cm/sec SV(LVOT): 41.7 ml MV mean P.3 mmHg MV V2 VTI: 27.1 cm Reading Physician:12:53 PM
== END ==
PROVIDERS: PCP Family Medicine; Referring Provider Family Medicine; Visit Provider Family Medicine
DX: I08.1 Rheumatic disorders of both mitral and tricuspid valves (principal); I70.0 Atherosclerosis of aorta; I48.91 Unspecified atrial fibrillation; Z79.01 Long term (current) use of anticoagulants; Z95.2 Presence of prosthetic heart valve
CPT/HCPCS: 93306

== ENCOUNTER → 2021-09-05 14:08 | Outpatient (CLI) | payer MEDICARE, OTHER, SELFPAY ==
--- NOTE | 2021-09-05 14:10 | DI.RAD.S_ITS ---
PROCEDURE: XR LUMBAR SPINE 2-3V INDICATIONS: Low back pain TECHNIQUE: 3 views of the lumbar spine were acquired. COMPARISON: [facility], , L-SPINE 2-3 VIEWS, 07/14/2012, 13:06. FINDINGS: Bones: 5 [id number] vertebrae are present. There is normal bony alignment. No vertebral body compression fractures. No suspicious bony lesions. Degenerative disc disease, moderate at L1-L2 and L2-L3, mild at L3-L4, L4-L5 and L5-S1. Moderate facet arthropathy at L4-L5 and L5-S1. Soft tissues: Overlying bowel gas pattern is normal. Severe vascular calcifications consistent with atherosclerosis. IMPRESSION: Mild progression of degenerative disc and facet disease. Dictated by: Paula Meek M.D. on 09/05/2021 at 15:20 Approved by: Paula Meek M.D. on 09/05/2021 at 15:22
== END ==
PROVIDERS: PCP Family Medicine; Referring Provider Physician Assistant; Visit Provider Physician Assistant
DX: M51.36 Other intervertebral disc degeneration, lumbar region (principal); M51.37 Other intervertebral disc degeneration, lumbosacral region; M47.816 Spondylosis without myelopathy or radiculopathy, lumbar region; M47.817 Spondylosis without myelopathy or radiculopathy, lumbosacral region; M54.50 Low back pain, unspecified
CPT/HCPCS: 72100

== ENCOUNTER → 2021-09-19 15:31 | Outpatient (CLI) | payer MEDICARE, OTHER, SELFPAY ==
[2021-09-19 16:24] LABS: COVID19 -Nasal RAPID Negative (Negative)
== END ==
PROVIDERS: Family Provider Family Medicine; PCP Family Medicine; Referring Provider Internal Medicine; Visit Provider Internal Medicine
DX: Z20.822 Contact with and (suspected) exposure to COVID-19 (principal)
CPT/HCPCS: 87635; C9803

== ENCOUNTER → 2021-09-20 09:03 | Outpatient (CLI) | payer MEDICARE, OTHER, SELFPAY ==
--- NOTE | 2021-09-25 07:48 | PM.PFT.1 ---
Pulmonary Function Test Referral & Results Date Patient Seen: 09/20/21 Requesting provider: Deven Maldonado Results: The spirometry demonstrates an FVC of 1.50 L which is 72% of predicted. The FEV1 was measured at 1.04 L which is 68% of predicted. The FEV1/FVC ratio was 69 which is 94% of predicted. Following the administration of bronchodilator there was no appreciable change Lung volumes show an SVC of 1.58 L which is 69% of predicted. The diffusing capacity was measured at 12.75 which is 63% of predicted. No hemoglobin value was provided, so no correction for potential anemia could be made, if appropriate. The maximum voluntary ventilation was reduced Interpretation: This study demonstrates possibly mild obstructive lung disease based on reduction FEV1 although FEV1/FVC ratio is preserved. There is no evidence of benefit following bronchodilator but shape of flow volume loop does support the presence of some degree of obstructive lung disease Lung volumes are reduced based on reduction SVC suggesting mild restrictive lung disease which may well explain the abnormalities in FEV1 noted above There is also mild reduction diffusing capacity suggesting disease at the capillary alveolar level, unless patient is anemic Clinical correlation suggested
== END ==
PROVIDERS: Family Provider Family Medicine; PCP Family Medicine; Referring Provider Internal Medicine Cardiovascular Disease; Visit Provider Internal Medicine Cardiovascular Disease
DX: R06.02 Shortness of breath (principal)
CPT/HCPCS: 94060; 94726; 94729

== ENCOUNTER → 2021-10-11 09:35 | Outpatient (CLI) | payer MEDICARE, OTHER, SELFPAY ==
[2021-10-11 11:14] LABS: BUN Creatinine Ratio 22.9 (6-22); Blood Urea Nitrogen 27 mg/dL (7-17); Calcium 8.9 mg/dL (8.4-10.2); Carbon Dioxide 31 mmol/L (22-32); Chloride 102 mmol/L (98-107); Estimated Glomerular Filt Rate 43.6 mL/min (>60); Glucose 73 mg/dL (80-110); HEMOLYSIS < 15 (0-50); Potassium 4.5 mmol/L (3.4-5.1); Sodium 137 mmol/L (137-145)
== END ==
PROVIDERS: Family Provider Family Medicine; PCP Family Medicine; Referring Provider Internal Medicine Cardiovascular Disease; Visit Provider Internal Medicine Cardiovascular Disease
DX: I48.19 Other persistent atrial fibrillation (principal)
CPT/HCPCS: 36415; 80048

== ENCOUNTER → 2021-11-08 15:57 | Outpatient (CLI) | payer MEDICARE, OTHER, SELFPAY ==
[2021-11-08 17:00] LABS: BUN Creatinine Ratio 25.9 (6-22); Blood Urea Nitrogen 29 mg/dL (7-17); Calcium 9.1 mg/dL (8.4-10.2); Carbon Dioxide 31 mmol/L (22-32); Chloride 101 mmol/L (98-107); Estimated Glomerular Filt Rate 46.3 mL/min (>60); Glucose 90 mg/dL (80-110); HEMOLYSIS < 15 (0-50); Potassium 4.1 mmol/L (3.4-5.1); Sodium 138 mmol/L (137-145)
[2021-11-08 17:30] LABS: Free T4, Direct Thyroxine 1.14 ng/dL (0.78-2.19)
[2021-11-08 17:43] LABS: Thyroid Stimulating Hormone 6.26 uIU/mL (0.47-4.68)
== END ==
PROVIDERS: Physician Assistant; Family Provider Family Medicine; PCP Family Medicine; Referring Provider Internal Medicine Cardiovascular Disease; Visit Provider Internal Medicine Cardiovascular Disease
DX: I48.21 Permanent atrial fibrillation (principal); I48.91 Unspecified atrial fibrillation; R79.89 Other specified abnormal findings of blood chemistry
CPT/HCPCS: 36415; 80048; 84439; 84443

== ENCOUNTER 2021-11-12 09:45 | Outpatient (RCR) | payer MEDICARE, OTHER, SELFPAY ==
[2021-09-17 10:30] VITALS: BP 132/72
--- NOTE | 2021-09-17 12:00 | PT.OIE ---
Current Diagnoses Low back pain, unspecified (09/17/21) Disorder of muscle, unspecified (09/17/21) Difficulty in walking, not elsewhere classified (09/17/21) Past Medical History (Last Updated 07/10/21 @ 10:43 by Macarena Piña PA-C) Aortic valve stenosis (11/09/13) Foot deformities, congenital History of aortic valve replacement with bioprosthetic valve (2015) History of carpal tunnel release Hyperlipidemia Osteoporosis (~1989) Urinary incontinence Past Surgical History (Last Updated 07/10/21 @ 10:43 by Macarena Piña PA-C) History of aortic valve replacement with bioprosthetic valve (2015) History of carpal tunnel release History of tonsillectomy Normal colonoscopy (2005) Personal history of tricuspid valve disease Visit Care Team Role Provider Type Jonn Rangel MD Family Provider Physician Primary Care Provider Specialty: Family Practice Address: [address] [place] [address], [facility] Email: [email or web address] Macarena Piña PA-C Attending Provider Advanced Forestry Technician Referring Provider Specialty: Medical Address: [address], [facility] Email: [email or web address] Physical Therapy Initial Evaluation PT-OP-A Visit Information Start: 09/17/21 08:27 Freq: Status: Active Protocol: Document 09/17/21 10:30 AW (Rec: 09/17/21 08:38 AW [id number]) Out-Patient Physical Therapy Visit Information Visit Information Visit Type Initial Evaluation Visit Start Time 09:45 Visit Stop Time 10:30 Total Visit Minutes 45 Visit Number 09/04 Number of ORE CRUSHING DUST COLLECTOR Visits 0 Evaluation Information Evaluation Date 09/17/21 PT-OP-B Current Condition Start: 09/17/21 08:27 Freq: Status: Active Protocol: Document 09/17/21 10:30 AW (Rec: 09/17/21 08:38 AW [id number]) Current Condition History of Current Condition Onset Date acute onset early August 2021 Current Complaints low back and hip/buttock pain History of Current Condition Pt began to notice groin pain with walking initially but symptoms quickly migrated mostly to right buttock. She has occasional radiation into the posterior thigh but never to the knee. Her pain is not shooting just very uncomfortable. She is able to sit and lay down (sleeps on side or back) without pain. Standing and walking increase her pain. She has not used any medications, ice, or heat. She is generally in good health but has had an aortic valve replacement (2017) and was recently diagnosed with atrial fibrillation. She is currently in cardiopulmonary rehab three times per week. She feels primarily limited by SOB. Celena typically walks without assistive device except for a walking stick in unfamiliar environments or on her inclined driveway to get mail. Celena lives alone and has good neighbors and supportive family. Prior Treatments and Tests Lumbar spine xray 09/05/21: Degenerative disc disease, moderate at L1-L2 and L2-L3, mild at L3-L4, L4-L5 and L5-S1 . Moderate facet arthropathy at L4-L5 and L5-S1. Future Testing and Treatments Planned None identified Treatment Goals Patient/Caregiver Goals Would like to get back to a walking program for pleasure and exercise. Back to yoga at home. Hopes to be able to garden without pain. Personal Factors Other Personal Factors That May Effect a fib, aortic valve Therapy/Recovery replacement (2017), osteoporosis PT-OP-C Subjective Start: 09/17/21 08:27 Freq: Status: Active Protocol: Document 09/17/21 10:30 AW (Rec: 09/17/21 17:35 AW [id number]) Patient Questionnaires Lower Extremity Functional Scale LEFS Score 47 LEFS Impairment 40 to 59% Impaired (Score 32- 47) PT-OP-D Balance Start: 09/17/21 08:27 Freq: Status: Active Protocol: Document 09/17/21 10:30 AW (Rec: 09/17/21 17:35 AW [id number]) Balance Tests Single Limb Standing Single Limb- Right <2 sec Single Limb- Left < 3 sec PT-OP-F Manual Assessment Start: 09/17/21 08:27 Freq: Status: Active Protocol: Document 09/17/21 10:30 AW (Rec: 09/17/21 17:35 AW [id number]) Manual Assessments Soft Tissue Assessment Soft Tissue Mobility Assessment Mild tenderness with deep palpation at bilateral greater trochanters. Pain with end range hip rotation bilaterally (right more affected than left). 90/90 SLR lacks 40-45 degrees knee extension bilaterally. Moderate tenderness to palpation at right glute med. PT-OP-G Mobility & Gait Start: 09/17/21 08:27 Freq: Status: Active Protocol: Document 09/17/21 10:30 AW (Rec: 09/17/21 17:35 AW [id number]) OP Gait Assessment Comments Gait Comments Pt ambulates with increased right lateral lean, general instability, decreased stance time RLE. PT-OP-H Neuro Start: 09/17/21 08:27 Freq: Status: Active Protocol: Document 09/17/21 10:30 AW (Rec: 09/17/21 17:45 AW [id number]) Sensation Evaluation Gross Sensation Gross Sensation WNL Comments Summary Comments Pt does report occasional tingling below knee to above ankle upon waking but states it resolves immediately with activity. Deep Tendon Reflex & Clonus Assessment Deep Tendon Reflex Bilateral Achilles Deep Tendon Reflex 1+ Diminished Bilateral Patellar Deep Tendon Reflex 2+ Normal Bilateral Bicep Deep Tendon Reflex 2+ Normal Vital Signs Blood Pressure Sitting Blood Pressure (90/60-120/80 mmHg) 132/72 H Blood Pressure Source Manual Cuff,Right Upper Extremity PT-OP-J Posture/Palpation/Skin Start: 09/17/21 08:27 Freq: Status: Active Protocol: Document 09/17/21 10:30 AW (Rec: 09/17/21 17:45 AW [id number]) Posture Evaluation Comments Posture Comments In standing, pt has increased thoracic kyphosis and exaggerated lumbar lordosis. Anterior pelvic tilt. Skin Assessment Other Assessments Skin Assessment Comments Mild swelling with pitting edema bilateral ankles. Pt does wear compression stockings but does not know level of compression. PT-OP-K Range of Motion Start: 09/17/21 08:27 Freq: Status: Active Protocol: Document 09/17/21 10:30 AW (Rec: 09/17/21 17:45 AW [id number]) Hip Goniometric Range of Motion Hip Active Hip ROM WFL Yes Comments No limitation in rotation but end-range passive rotation does reproduce pain on right side. Knee Goniometric Range of Motion Knee bilat Knee ROM WFL Yes PT-OP-L Special Tests Start: 09/17/21 08:27 Freq: Status: Active Protocol: Document 09/17/21 10:30 AW (Rec: 09/17/21 17:45 AW [id number]) Special Tests Lumbar Spine Special Tests Slump Test Results negative bilaterally PT-OP-M Strength Start: 09/17/21 08:27 Freq: Status: Active Protocol: Document 09/17/21 10:30 AW (Rec: 09/17/21 17:45 AW [id number]) Hip Strength Hip Manual Muscle Testing Right Flexion (L2) 4 Good Extension (S1) 3+ Fair+ Abduction 4- Good- Left Flexion (L2) 4+ Good+ Extension (S1) 3+ Fair+ Abduction 4- Good- Knee Strength Knee Manual Muscle Testing bilat Flexion (S2) 4 Good Extension (L3) 4 Good Ankle/Foot Strength Ankle and Foot Manual Muscle Testing bilat Dorsiflexion (L4) 4+ Good+ Plantarflexion (S1) 4 Good PT-OP-T Assessment and Plan Start: 09/17/21 08:27 Freq: Status: Active Protocol: Document 09/17/21 10:30 AW (Rec: 09/17/21 17:55 AW [id number]) Physical Therapy Assessment Rehab Potential Rehabilitation Potential Good Evaluation Complexity Number of Personal Factors/Comorbidities 3 or More Number of Body Systems Impaired 3 Clinical Presentation at Evaluation Evolving Impairments Impairments Activity Tolerance,Balance, Gait,Pain,Posture,ROM,Soft Tissue Mobility,Strength Other Concerns Fall Risk yes Goals Three Impairment pain with standing, walking Short Term Goal (STG) Pt will stand for 20 minutes without increase in baseline pain to improve her ability to prepare a simple meal. STG Duration 10/29/21 Jail Goal (LTG) Pt will walk for 30 minutes without increase in baseline pain to improve her ability to participate in self-directed walking program. LTG Duration 12/10/21 Two Impairment gait Short Term Goal (STG) Pt will walk 1000 feet in 6 Minute Walk Test as a measure of improved endurance10/29/21 STG Duration 10/29/21 Jail Goal (LTG) Pt will score 21/24 or greater on Dynamic Gait Index as a measure of improved stability in gait and reduced falls risk LTG Duration 12/10/21 One Impairment lacks HEP Short Term Goal (STG) Pt will be independent with HEP to support therapy services provided in clinic STG Duration 10/29/21 Dairy Manager Goal (LTG) Pt will return to yoga and walking program for regular exercise to improve overall fitness. 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 She presents with limited hip mobility, pain with end- range rotation, and postural changes that likely predisposed her to pain symptoms. Pt is expected to benefit from skilled physical therapy aimed at addressing these muskuloskeletal deficits to facilitate return to regular activities such as gardening, yoga, and a walking program. Physical Therapy Plan Frequency and Duration Frequency of Treatment 1-2x/week Duration of Treatment 12 weeks Plan of Care Start Date 09/17/21 Plan of Care End Date 11/26/21 Therapeutic Interventions Therapeutic Interventions Balance Training,Gait Training ,Home Exercise Program,Manual Therapy,Neuromuscular Re- education,Soft Tissue Mobilization,Therapeutic Activities,Therapeutic Exercises Modalities Cold Pack/Ice Massage,Hot Packs Next Visit Focus/Plan Next Note Type Treatment Note Next Visit Plan consider 2MWT for gait speed, 5xSTS, TUG, or DGA for basline measures; hip mobility; initiate gentle strengthening
--- NOTE | 2021-09-17 12:00 | PT.OPPOC ---
Physical, Occupational & Speech Therapy At [facility] Current Diagnoses Low back pain, unspecified (09/17/21) Disorder of muscle, unspecified (09/17/21) Difficulty in walking, not elsewhere classified (09/17/21) Visit Care Team Role Provider Type Jonn Rangel MD Family Provider Physician Primary Care Provider Specialty: Family Practice Address: [address] [place] [address], [id number] Email: [email or web address] Macarena Piña PA-C Attending Provider Advanced Wrapper Counter Referring Provider Specialty: Medical Address: [facility], [address] [place] [address], [id number] Email: [email or web address] Plan Of Care PT-OP-T Assessment and Plan Start: 09/17/21 08:27 Freq: Status: Active Protocol: Document 09/17/21 10:30 AW (Rec: 09/17/21 17:55 AW [id number]) Physical Therapy Assessment Rehab Potential Rehabilitation Potential Good Evaluation Complexity Number of Personal Factors/Comorbidities 3 or More Number of Body Systems Impaired 3 Clinical Presentation at Evaluation Evolving Impairments Impairments Activity Tolerance,Balance, Gait,Pain,Posture,ROM,Soft Tissue Mobility,Strength Other Concerns Fall Risk yes Goals Three Impairment pain with standing, walking Short Term Goal (STG) Pt will stand for 20 minutes without increase in baseline pain to improve her ability to prepare a simple meal. STG Duration 10/29/21 Nursing Home Goal (LTG) Pt will walk for 30 minutes without increase in baseline pain to improve her ability to participate in self-directed walking program. LTG Duration 12/10/21 Two Impairment gait Short Term Goal (STG) Pt will walk 1000 feet in 6 Minute Walk Test as a measure of improved endurance10/29/21 STG Duration 10/29/21 Nursing Home Goal (LTG) Pt will score 21/24 or greater on Dynamic Gait Index as a measure of improved stability in gait and reduced falls risk LTG Duration 12/10/21 One Impairment lacks HEP Short Term Goal (STG) Pt will be independent with HEP to support therapy services provided in clinic STG Duration 10/29/21 Mortgage Loan Closer Goal (LTG) Pt will return to yoga and walking program for regular exercise to improve overall fitness. 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 She presents with limited hip mobility, pain with end- range rotation, and postural changes that likely predisposed her to pain symptoms. Pt is expected to benefit from skilled physical therapy aimed at addressing these muskuloskeletal deficits to facilitate return to regular activities such as gardening, yoga, and a walking program. Physical Therapy Plan Frequency and Duration Frequency of Treatment 1-2x/week Duration of Treatment 12 weeks Plan of Care Start Date 09/17/21 Plan of Care End Date 11/26/21 Therapeutic Interventions Therapeutic Interventions Balance Training,Gait Training ,Home Exercise Program,Manual Therapy,Neuromuscular Re- education,Soft Tissue Mobilization,Therapeutic Activities,Therapeutic Exercises Modalities Cold Pack/Ice Massage,Hot Packs Next Visit Focus/Plan Next Note Type Treatment Note Next Visit Plan consider 2MWT for gait speed, 5xSTS, TUG, or DGA for basline measures; hip mobility; initiate gentle strengthening Plan of Care Dates Plan of Care Start Date 09/17/21 Plan of Care End Date 11/26/21 Electronically Signed by: Beryl Bello, PT 09/19/21 0944 Please Sign and Return: I have reviewed this Plan of Care and certify that the skilled therapy services above are required to meet the patient?s needs. Physician Signature Date Printed Name and Credentials Clinical Instructor Signature Printed Name and Credentials
--- NOTE | 2021-09-19 16:58 | PT.OTN ---
Current Diagnoses Low back pain, unspecified (09/19/21) Disorder of muscle, unspecified (09/19/21) Difficulty in walking, not elsewhere classified (09/19/21) Physical Therapy Treatment Note PT-OP-A Visit Information Start: 09/17/21 08:27 Freq: Status: Active Protocol: Document 09/19/21 16:02 AW (Rec: 09/19/21 16:58 AW [id number]) Out-Patient Physical Therapy Visit Information Visit Information Visit Type Treatment Note Visit Start Time 16:03 Visit Stop Time 16:45 Total Visit Minutes 42 Visit Number 10/05 Number of BLOOD BANK CALENDAR CONTROL CLERK Visits 0 Evaluation Information Evaluation Date 09/17/21 PT-OP-B Current Condition Start: 09/17/21 08:27 Freq: Status: Active Protocol: Document 09/17/21 10:30 AW (Rec: 09/17/21 08:38 AW [id number]) Current Condition History of Current Condition Onset Date acute onset early August 2021 Current Complaints low back and hip/buttock pain History of Current Condition Pt began to notice groin pain with walking initially but symptoms quickly migrated mostly to right buttock. She has occasional radiation into the posterior thigh but never to the knee. Her pain is not shooting just very uncomfortable. She is able to sit and lay down (sleeps on side or back) without pain. Standing and walking increase her pain. She has not used any medications, ice, or heat. She is generally in good health but has had an aortic valve replacement (2016) and was recently diagnosed with atrial fibrillation. She is currently in cardiopulmonary rehab three times per week. She feels primarily limited by SOB. Celena typically walks without assistive device except for a walking stick in unfamiliar environments or on her inclined driveway to get mail. Celena lives alone and has good neighbors and supportive family. Prior Treatments and Tests Lumbar spine xray 09/05/21: Degenerative disc disease, moderate at L1-L2 and L2-L3, mild at L3-L4, L4-L5 and L5-S1 . Moderate facet arthropathy at L4-L5 and L5-S1. Future Testing and Treatments Planned None identified Treatment Goals Patient/Caregiver Goals Would like to get back to a walking program for pleasure and exercise. Back to yoga at home. Hopes to be able to garden without pain. Personal Factors Other Personal Factors That May Effect a fib, aortic valve Therapy/Recovery replacement (2017), osteoporosis PT-OP-C Subjective Start: 09/17/21 08:27 Freq: Status: Active Protocol: Document 09/19/21 16:02 AW (Rec: 09/19/21 16:58 AW [id number]) OP-PT Subjective Patient Comments Patient Comments Starting my day with cardiac rehab is a real kick in the pants! PT-OP-D Balance Start: 09/17/21 08:27 Freq: Status: Active Protocol: Document 09/17/21 10:30 AW (Rec: 09/17/21 17:35 AW [id number]) Balance Tests Single Limb Standing Single Limb- Right <2 sec Single Limb- Left < 3 sec PT-OP-F Manual Assessment Start: 09/17/21 08:27 Freq: Status: Active Protocol: Document 09/17/21 10:30 AW (Rec: 09/17/21 17:35 AW [id number]) Manual Assessments Soft Tissue Assessment Soft Tissue Mobility Assessment Mild tenderness with deep palpation at bilateral greater trochanters. Pain with end range hip rotation bilaterally (right more affected than left). 90/90 SLR lacks 40-45 degrees knee extension bilaterally. Moderate tenderness to palpation at right glute med. PT-OP-G Mobility & Gait Start: 09/17/21 08:27 Freq: Status: Active Protocol: Document 09/17/21 10:30 AW (Rec: 09/17/21 17:35 AW [id number]) OP Gait Assessment Comments Gait Comments Pt ambulates with increased right lateral lean, general instability, decreased stance time RLE. PT-OP-H Neuro Start: 09/17/21 08:27 Freq: Status: Active Protocol: Document 09/17/21 10:30 AW (Rec: 09/17/21 17:45 AW [id number]) Sensation Evaluation Gross Sensation Gross Sensation WNL Comments Summary Comments Pt does report occasional tingling below knee to above ankle upon waking but states it resolves immediately with activity. Deep Tendon Reflex & Clonus Assessment Deep Tendon Reflex Bilateral Achilles Deep Tendon Reflex 1+ Diminished Bilateral Patellar Deep Tendon Reflex 2+ Normal Bilateral Bicep Deep Tendon Reflex 2+ Normal Vital Signs Blood Pressure Sitting Blood Pressure (90/60-120/80 mmHg) 132/72 H Blood Pressure Source Manual Cuff,Right Upper Extremity PT-OP-J Posture/Palpation/Skin Start: 09/17/21 08:27 Freq: Status: Active Protocol: Document 09/17/21 10:30 AW (Rec: 09/17/21 17:45 AW [id number]) Posture Evaluation Comments Posture Comments In standing, pt has increased thoracic kyphosis and exaggerated lumbar lordosis. Anterior pelvic tilt. Skin Assessment Other Assessments Skin Assessment Comments Mild swelling with pitting edema bilateral ankles. Pt does wear compression stockings but does not know level of compression. PT-OP-K Range of Motion Start: 09/17/21 08:27 Freq: Status: Active Protocol: Document 09/17/21 10:30 AW (Rec: 09/17/21 17:45 AW [id number]) Hip Goniometric Range of Motion Hip Active Hip ROM WFL Yes Comments No limitation in rotation but end-range passive rotation does reproduce pain on right side. Knee Goniometric Range of Motion Knee bilat Knee ROM WFL Yes PT-OP-L Special Tests Start: 09/17/21 08:27 Freq: Status: Active Protocol: Document 09/17/21 10:30 AW (Rec: 09/17/21 17:45 AW [id number]) Special Tests Lumbar Spine Special Tests Slump Test Results negative bilaterally PT-OP-M Strength Start: 09/17/21 08:27 Freq: Status: Active Protocol: Document 09/17/21 10:30 AW (Rec: 09/17/21 17:45 AW [id number]) Hip Strength Hip Manual Muscle Testing Right Flexion (L2) 4 Good Extension (S1) 3+ Fair+ Abduction 4- Good- Left Flexion (L2) 4+ Good+ Extension (S1) 3+ Fair+ Abduction 4- Good- Knee Strength Knee Manual Muscle Testing bilat Flexion (S2) 4 Good Extension (L3) 4 Good Ankle/Foot Strength Ankle and Foot Manual Muscle Testing bilat Dorsiflexion (L4) 4+ Good+ Plantarflexion (S1) 4 Good PT-OP-Q Treatments Start: 09/17/21 08:27 Freq: Status: Active Protocol: Document 09/19/21 16:02 AW (Rec: 09/19/21 16:58 AW [id number]) Therapeutic Exercises Supine Exercises modified victorino test stretch Supine Exercise Name modified victorino test stretch Side bilateral Comments no restriction noted; dc'ed pelvic tilt/TrA Supine Exercise Name pelvic tilt/TrA isolation; BKFO Side bilateral Resistance clinic only at this time Comments pt needs cues to keep hips on mat piriformis stretch Supine Exercise Name piriformis stretch - opp foot planted Side bilateral Reps/Minutes 30 SH x 4 Comments HEP HS stretch Supine Exercise Name HS stretch Side bilateral Equipment Used towel Comments w/ ankle pumps Sitting Exercises HS stretch Sitting Exercise Name HS stretch Side bilateral Reps/Minutes 30SH x 4 Comments cued tall posture, hip hinge; HEP Other Exercises sit to stand Other Exercise Name 5xSTS Equipment Used chair, no UE support Reps/Minutes 13.24 seconds Gait Training Gait Activity 2MWT Description 2MWT Device Used no AD Level of Assistance SBA Surface carpet, tile Distance/Duration 303 feet/2 minutes Treatment Focus assessment Comments average gait speed: 0.77 m/s with no loss in velocity over time Manual Therapy Treatment Soft Tissue Mobilization HS stretch Body Location HS stretch Comments PT assist with contract/relax. PT-OP-T Assessment and Plan Start: 09/17/21 08:27 Freq: Status: Active Protocol: Document 09/19/21 16:02 AW (Rec: 09/19/21 16:58 AW [id number]) Physical Therapy Assessment Goals Three Impairment pain with standing, walking Short Term Goal (STG) Pt will stand for 20 minutes without increase in baseline pain to improve her ability to prepare a simple meal. STG Duration 10/29/21 Detention Goal (LTG) Pt will walk for 30 minutes without increase in baseline pain to improve her ability to participate in self-directed walking program. LTG Duration 12/10/21 Two Impairment gait Short Term Goal (STG) Pt will walk 1000 feet in 6 Minute Walk Test as a measure of improved endurance10/29/21 STG Duration 10/29/21 Cigar Tobacco Processing Supervisor Goal (LTG) Pt will score 21/24 or greater on Dynamic Gait Index as a measure of improved stability in gait and reduced falls risk LTG Duration 12/10/21 One Impairment lacks HEP Short Term Goal (STG) Pt will be independent with HEP to support therapy services provided in clinic STG Duration 10/29/21 Detention Goal (LTG) Pt will return to yoga and walking program for regular exercise to improve overall fitness. LTG Duration 12/10/21 Assessment Summary Assessment Celena tolerated introduction to hip mobility and core facilitation today. She requires max cues for all but is able to coordinate seated HS stretch and supine piriformis stretch which were assigned for HEP. Physical Therapy Plan Frequency and Duration Frequency of Treatment 1-2x/week Duration of Treatment 12 weeks Plan of Care Start Date 09/17/21 Plan of Care End Date 11/26/21 Therapeutic Interventions Therapeutic Interventions Balance Training,Gait Training ,Home Exercise Program,Manual Therapy,Neuromuscular Re- education,Soft Tissue Mobilization,Therapeutic Activities,Therapeutic Exercises Modalities Cold Pack/Ice Massage,Hot Packs Next Visit Focus/Plan Next Note Type Treatment Note Next Visit Plan review hip mobility; initiate gentle strengthening and add for HEP
--- NOTE | 2021-09-24 11:19 | PT.OTN ---
Current Diagnoses Low back pain, unspecified (09/24/21) Disorder of muscle, unspecified (09/24/21) Difficulty in walking, not elsewhere classified (09/24/21) Physical Therapy Treatment Note PT-OP-A Visit Information Start: 09/17/21 08:27 Freq: Status: Active Protocol: Document 09/24/21 10:26 AW (Rec: 09/24/21 11:19 AW [id number]) Out-Patient Physical Therapy Visit Information Visit Information Visit Type Treatment Note Visit Start Time 10:35 Visit Stop Time 11:15 Total Visit Minutes 40 Visit Number 11/02 Number of HOMEMAKER COMPANION Visits 0 Evaluation Information Evaluation Date 09/17/21 PT-OP-B Current Condition Start: 09/17/21 08:27 Freq: Status: Active Protocol: Document 09/17/21 10:30 AW (Rec: 09/17/21 08:38 AW [id number]) Current Condition History of Current Condition Onset Date acute onset early August 2021 Current Complaints low back and hip/buttock pain History of Current Condition Pt began to notice groin pain with walking initially but symptoms quickly migrated mostly to right buttock. She has occasional radiation into the posterior thigh but never to the knee. Her pain is not shooting just very uncomfortable. She is able to sit and lay down (sleeps on side or back) without pain. Standing and walking increase her pain. She has not used any medications, ice, or heat. She is generally in good health but has had an aortic valve replacement (2016) and was recently diagnosed with atrial fibrillation. She is currently in cardiopulmonary rehab three times per week. She feels primarily limited by SOB. Celena typically walks without assistive device except for a walking stick in unfamiliar environments or on her inclined driveway to get mail. Celena lives alone and has good neighbors and supportive family. Prior Treatments and Tests Lumbar spine xray 09/05/21: Degenerative disc disease, moderate at L1-L2 and L2-L3, mild at L3-L4, L4-L5 and L5-S1 . Moderate facet arthropathy at L4-L5 and L5-S1. Future Testing and Treatments Planned None identified Treatment Goals Patient/Caregiver Goals Would like to get back to a walking program for pleasure and exercise. Back to yoga at home. Hopes to be able to garden without pain. Personal Factors Other Personal Factors That May Effect a fib, aortic valve Therapy/Recovery replacement (2017), osteoporosis PT-OP-C Subjective Start: 09/17/21 08:27 Freq: Status: Active Protocol: Document 09/24/21 10:26 AW (Rec: 09/24/21 11:19 AW [id number]) OP-PT Subjective Patient Comments Patient Comments Pt is 5 min late because of unexpected arrival from [facility]. It won't happen again. PT-OP-D Balance Start: 09/17/21 08:27 Freq: Status: Active Protocol: Document 09/17/21 10:30 AW (Rec: 09/17/21 17:35 AW [id number]) Balance Tests Single Limb Standing Single Limb- Right <2 sec Single Limb- Left < 3 sec PT-OP-F Manual Assessment Start: 09/17/21 08:27 Freq: Status: Active Protocol: Document 09/17/21 10:30 AW (Rec: 09/17/21 17:35 AW [id number]) Manual Assessments Soft Tissue Assessment Soft Tissue Mobility Assessment Mild tenderness with deep palpation at bilateral greater trochanters. Pain with end range hip rotation bilaterally (right more affected than left). 90/90 SLR lacks 40-45 degrees knee extension bilaterally. Moderate tenderness to palpation at right glute med. PT-OP-G Mobility & Gait Start: 09/17/21 08:27 Freq: Status: Active Protocol: Document 09/17/21 10:30 AW (Rec: 09/17/21 17:35 AW [id number]) OP Gait Assessment Comments Gait Comments Pt ambulates with increased right lateral lean, general instability, decreased stance time RLE. PT-OP-H Neuro Start: 09/17/21 08:27 Freq: Status: Active Protocol: Document 09/17/21 10:30 AW (Rec: 09/17/21 17:45 AW [id number]) Sensation Evaluation Gross Sensation Gross Sensation WNL Comments Summary Comments Pt does report occasional tingling below knee to above ankle upon waking but states it resolves immediately with activity. Deep Tendon Reflex & Clonus Assessment Deep Tendon Reflex Bilateral Achilles Deep Tendon Reflex 1+ Diminished Bilateral Patellar Deep Tendon Reflex 2+ Normal Bilateral Bicep Deep Tendon Reflex 2+ Normal Vital Signs Blood Pressure Sitting Blood Pressure (90/60-120/80 mmHg) 132/72 H Blood Pressure Source Manual Cuff,Right Upper Extremity PT-OP-J Posture/Palpation/Skin Start: 09/17/21 08:27 Freq: Status: Active Protocol: Document 09/17/21 10:30 AW (Rec: 09/17/21 17:45 AW [id number]) Posture Evaluation Comments Posture Comments In standing, pt has increased thoracic kyphosis and exaggerated lumbar lordosis. Anterior pelvic tilt. Skin Assessment Other Assessments Skin Assessment Comments Mild swelling with pitting edema bilateral ankles. Pt does wear compression stockings but does not know level of compression. PT-OP-K Range of Motion Start: 09/17/21 08:27 Freq: Status: Active Protocol: Document 09/17/21 10:30 AW (Rec: 09/17/21 17:45 AW [id number]) Hip Goniometric Range of Motion Hip Active Hip ROM WFL Yes Comments No limitation in rotation but end-range passive rotation does reproduce pain on right side. Knee Goniometric Range of Motion Knee bilat Knee ROM WFL Yes PT-OP-L Special Tests Start: 09/17/21 08:27 Freq: Status: Active Protocol: Document 09/17/21 10:30 AW (Rec: 09/17/21 17:45 AW [id number]) Special Tests Lumbar Spine Special Tests Slump Test Results negative bilaterally PT-OP-M Strength Start: 09/17/21 08:27 Freq: Status: Active Protocol: Document 09/17/21 10:30 AW (Rec: 09/17/21 17:45 AW [id number]) Hip Strength Hip Manual Muscle Testing Right Flexion (L2) 4 Good Extension (S1) 3+ Fair+ Abduction 4- Good- Left Flexion (L2) 4+ Good+ Extension (S1) 3+ Fair+ Abduction 4- Good- Knee Strength Knee Manual Muscle Testing bilat Flexion (S2) 4 Good Extension (L3) 4 Good Ankle/Foot Strength Ankle and Foot Manual Muscle Testing bilat Dorsiflexion (L4) 4+ Good+ Plantarflexion (S1) 4 Good PT-OP-Q Treatments Start: 09/17/21 08:27 Freq: Status: Active Protocol: Document 09/24/21 10:26 AW (Rec: 09/24/21 11:19 AW [id number]) Cardio Equipment Recumbent Elliptical ([employer]) Duration (Minutes) 5 Resistance 2>1 Seat Position 5 Other ~40 rpm Therapeutic Exercises Supine Exercises supine clam Supine Exercise Name supine clam Side bilateral Resistance TB1 Reps/Minutes x10 Comments consider for HEP next visit hip adduction squeeze Supine Exercise Name hip adduction squeeze Side bilateral Resistance sm ball (orange) Reps/Minutes 5SH x 10 Comments consider for HEP next visit HS stretch Supine Exercise Name HS stretch Side bilateral Equipment Used strap under foot Reps/Minutes 30 SH x 4 Comments alternative for HEP Sitting Exercises tall posture Sitting Exercise Name tall posture - scap stab; cervical retraction Comments prep for HS stretch HS stretch Sitting Exercise Name HS stretch Side bilateral Reps/Minutes 30SH x 4 Comments cued tall posture, cervical neutral, hip hinge; HEP review PT-OP-T Assessment and Plan Start: 09/17/21 08:27 Freq: Status: Active Protocol: Document 09/24/21 10:26 AW (Rec: 09/24/21 11:19 AW [id number]) Physical Therapy Assessment Goals Three Impairment pain with standing, walking Short Term Goal (STG) Pt will stand for 20 minutes without increase in baseline pain to improve her ability to prepare a simple meal. STG Duration 10/29/21 Postal Service Sectional Center Manager Goal (LTG) Pt will walk for 30 minutes without increase in baseline pain to improve her ability to participate in self-directed walking program. LTG Duration 12/10/21 Two Impairment gait Short Term Goal (STG) Pt will walk 1000 feet in 6 Minute Walk Test as a measure of improved endurance10/29/21 STG Duration 10/29/21 [employer] Sectional Center Manager Goal (LTG) Pt will score 21/24 or greater on Dynamic Gait Index as a measure of improved stability in gait and reduced falls risk LTG Duration 12/10/21 One Impairment lacks HEP Short Term Goal (STG) Pt will be independent with HEP to support therapy services provided in clinic STG Duration 10/29/21 Prison Goal (LTG) Pt will return to yoga and walking program for regular exercise to improve overall fitness. LTG Duration 12/10/21 Assessment Summary Assessment Reviewed hip mobility and introduced supine HS stretch which pt was able to coordinate better than sitting with fewer cues. Will continue hip mobility and consider gentle hip strength for HEP next visit. Physical Therapy Plan Frequency and Duration Frequency of Treatment 1-2x/week Duration of Treatment 12 weeks Plan of Care Start Date 09/17/21 Plan of Care End Date 11/26/21 Therapeutic Interventions Therapeutic Interventions Balance Training,Gait Training ,Home Exercise Program,Manual Therapy,Neuromuscular Re- education,Soft Tissue Mobilization,Therapeutic Activities,Therapeutic Exercises Modalities Cold Pack/Ice Massage,Hot Packs Next Visit Focus/Plan Next Note Type Treatment Note Next Visit Plan review hip mobility; initiate gentle strengthening and add for HEP
--- NOTE | 2021-09-26 17:10 | PT.OTN ---
Current Diagnoses Low back pain, unspecified (09/26/21) Disorder of muscle, unspecified (09/26/21) Difficulty in walking, not elsewhere classified (09/26/21) Physical Therapy Treatment Note PT-OP-A Visit Information Start: 09/17/21 08:27 Freq: Status: Active Protocol: Document 09/26/21 14:32 AW (Rec: 09/26/21 15:17 AW [id number]) Out-Patient Physical Therapy Visit Information Visit Information Visit Type Treatment Note PT-OP-B Current Condition Start: 09/17/21 08:27 Freq: Status: Active Protocol: Document 09/17/21 10:30 AW (Rec: 09/17/21 08:38 AW [id number]) Current Condition History of Current Condition Onset Date acute onset early August 2021 Current Complaints low back and hip/buttock pain History of Current Condition Pt began to notice groin pain with walking initially but symptoms quickly migrated mostly to right buttock. She has occasional radiation into the posterior thigh but never to the knee. Her pain is not shooting just very uncomfortable. She is able to sit and lay down (sleeps on side or back) without pain. Standing and walking increase her pain. She has not used any medications, ice, or heat. She is generally in good health but has had an aortic valve replacement (2016) and was recently diagnosed with atrial fibrillation. She is currently in cardiopulmonary rehab three times per week. She feels primarily limited by SOB. Celena typically walks without assistive device except for a walking stick in unfamiliar environments or on her inclined driveway to get mail. Celena lives alone and has good neighbors and supportive family. Prior Treatments and Tests Lumbar spine xray 09/05/21: Degenerative disc disease, moderate at L1-L2 and L2-L3, mild at L3-L4, L4-L5 and L5-S1 . Moderate facet arthropathy at L4-L5 and L5-S1. Future Testing and Treatments Planned None identified Treatment Goals Patient/Caregiver Goals Would like to get back to a walking program for pleasure and exercise. Back to yoga at home. Hopes to be able to garden without pain. Personal Factors Other Personal Factors That May Effect a fib, aortic valve Therapy/Recovery replacement (2017), osteoporosis PT-OP-C Subjective Start: 09/17/21 08:27 Freq: Status: Active Protocol: Document 09/26/21 14:32 AW (Rec: 09/26/21 15:17 AW [id number]) OP-PT Subjective Patient Comments Patient Comments This will be my 2nd workout today after cardiac rehab this morning. PT-OP-D Balance Start: 09/17/21 08:27 Freq: Status: Active Protocol: Document 09/17/21 10:30 AW (Rec: 09/17/21 17:35 AW [id number]) Balance Tests Single Limb Standing Single Limb- Right <2 sec Single Limb- Left < 3 sec PT-OP-F Manual Assessment Start: 09/17/21 08:27 Freq: Status: Active Protocol: Document 09/17/21 10:30 AW (Rec: 09/17/21 17:35 AW [id number]) Manual Assessments Soft Tissue Assessment Soft Tissue Mobility Assessment Mild tenderness with deep palpation at bilateral greater trochanters. Pain with end range hip rotation bilaterally (right more affected than left). 90/90 SLR lacks 40-45 degrees knee extension bilaterally. Moderate tenderness to palpation at right glute med. PT-OP-G Mobility & Gait Start: 09/17/21 08:27 Freq: Status: Active Protocol: Document 09/17/21 10:30 AW (Rec: 09/17/21 17:35 AW [id number]) OP Gait Assessment Comments Gait Comments Pt ambulates with increased right lateral lean, general instability, decreased stance time RLE. PT-OP-H Neuro Start: 09/17/21 08:27 Freq: Status: Active Protocol: Document 09/17/21 10:30 AW (Rec: 09/17/21 17:45 AW [id number]) Sensation Evaluation Gross Sensation Gross Sensation WNL Comments Summary Comments Pt does report occasional tingling below knee to above ankle upon waking but states it resolves immediately with activity. Deep Tendon Reflex & Clonus Assessment Deep Tendon Reflex Bilateral Achilles Deep Tendon Reflex 1+ Diminished Bilateral Patellar Deep Tendon Reflex 2+ Normal Bilateral Bicep Deep Tendon Reflex 2+ Normal Vital Signs Blood Pressure Sitting Blood Pressure (90/60-120/80 mmHg) 132/72 H Blood Pressure Source Manual Cuff,Right Upper Extremity PT-OP-J Posture/Palpation/Skin Start: 09/17/21 08:27 Freq: Status: Active Protocol: Document 09/17/21 10:30 AW (Rec: 09/17/21 17:45 AW [id number]) Posture Evaluation Comments Posture Comments In standing, pt has increased thoracic kyphosis and exaggerated lumbar lordosis. Anterior pelvic tilt. Skin Assessment Other Assessments Skin Assessment Comments Mild swelling with pitting edema bilateral ankles. Pt does wear compression stockings but does not know level of compression. PT-OP-K Range of Motion Start: 09/17/21 08:27 Freq: Status: Active Protocol: Document 09/17/21 10:30 AW (Rec: 09/17/21 17:45 AW [id number]) Hip Goniometric Range of Motion Hip Active Hip ROM WFL Yes Comments No limitation in rotation but end-range passive rotation does reproduce pain on right side. Knee Goniometric Range of Motion Knee bilat Knee ROM WFL Yes PT-OP-L Special Tests Start: 09/17/21 08:27 Freq: Status: Active Protocol: Document 09/17/21 10:30 AW (Rec: 09/17/21 17:45 AW [id number]) Special Tests Lumbar Spine Special Tests Slump Test Results negative bilaterally PT-OP-M Strength Start: 09/17/21 08:27 Freq: Status: Active Protocol: Document 09/17/21 10:30 AW (Rec: 09/17/21 17:45 AW [id number]) Hip Strength Hip Manual Muscle Testing Right Flexion (L2) 4 Good Extension (S1) 3+ Fair+ Abduction 4- Good- Left Flexion (L2) 4+ Good+ Extension (S1) 3+ Fair+ Abduction 4- Good- Knee Strength Knee Manual Muscle Testing bilat Flexion (S2) 4 Good Extension (L3) 4 Good Ankle/Foot Strength Ankle and Foot Manual Muscle Testing bilat Dorsiflexion (L4) 4+ Good+ Plantarflexion (S1) 4 Good PT-OP-Q Treatments Start: 09/17/21 08:27 Freq: Status: Active Protocol: Document 09/26/21 14:32 AW (Rec: 09/26/21 15:17 AW [id number]) Cardio Equipment Recumbent Elliptical ([place]) Duration (Minutes) 5 Resistance 1>2 Seat Position 5 Other ~50 rpm; can carry on coversation Therapeutic Exercises Supine Exercises supine clam Supine Exercise Name supine clam Side bilateral Resistance TB1 Reps/Minutes 2x10 Comments HEP hip adduction squeeze Supine Exercise Name hip adduction squeeze Side bilateral Resistance sm ball (green) Reps/Minutes 5SH x 10; 2 sets Comments HEP piriformis stretch Supine Exercise Name piriformis stretch - opp foot planted Side bilateral Reps/Minutes 30 SH x 4 Comments HEP review HS stretch Supine Exercise Name HS stretch with ankle pump Side bilateral Equipment Used towel around thigh Reps/Minutes 30 SH x 4 Comments alternative for HEP Therapeutic Activity Therapeutic Activity diaphragmatic breathing Name diaphragmatic breathing Comments education on increasing parasympathetic tone, reducing use of accessory mm PT-OP-T Assessment and Plan Start: 09/17/21 08:27 Freq: Status: Active Protocol: Document 09/26/21 14:32 AW (Rec: 09/26/21 15:17 AW [id number]) Physical Therapy Assessment Goals Three Impairment pain with standing, walking Short Term Goal (STG) Pt will stand for 20 minutes without increase in baseline pain to improve her ability to prepare a simple meal. STG Duration 10/29/21 Batt Machine Operator Goal (LTG) Pt will walk for 30 minutes without increase in baseline pain to improve her ability to participate in self-directed walking program. LTG Duration 12/10/21 Two Impairment gait Short Term Goal (STG) Pt will walk 1000 feet in 6 Minute Walk Test as a measure of improved endurance10/29/21 STG Duration 10/29/21 Residential Goal (LTG) Pt will score 21/24 or greater on Dynamic Gait Index as a measure of improved stability in gait and reduced falls risk LTG Duration 12/10/21 One Impairment lacks HEP Short Term Goal (STG) Pt will be independent with HEP to support therapy services provided in clinic STG Duration 10/29/21 Batt Machine Operator Goal (LTG) Pt will return to yoga and walking program for regular exercise to improve overall fitness. LTG Duration 12/10/21 Assessment Summary Assessment Reviewed hip mobility and added sciatic nerve glide. Hip adduction and supine clam added to HEP along with diaphragmatic breathing. Educated pt on benefits of breathing practice including parasympathetic tone and reduction of accessory muscle recruitment. Physical Therapy Plan Frequency and Duration Frequency of Treatment 1-2x/week Duration of Treatment 12 weeks Plan of Care Start Date 09/17/21 Plan of Care End Date 11/26/21 Therapeutic Interventions Therapeutic Interventions Balance Training,Gait Training ,Home Exercise Program,Manual Therapy,Neuromuscular Re- education,Soft Tissue Mobilization,Therapeutic Activities,Therapeutic Exercises Modalities Cold Pack/Ice Massage,Hot Packs Next Visit Focus/Plan Next Note Type Treatment Note Next Visit Plan review hip mobility and beginner strength; progress strength work in clinic and consider for HEP
--- NOTE | 2021-10-01 17:11 | PT.OTN ---
Current Diagnoses Low back pain, unspecified (10/01/21) Disorder of muscle, unspecified (10/01/21) Difficulty in walking, not elsewhere classified (10/01/21) Physical Therapy Treatment Note PT-OP-A Visit Information Start: 09/17/21 08:27 Freq: Status: Active Protocol: Document 10/01/21 14:32 AW (Rec: 10/01/21 15:15 AW [id number]) Out-Patient Physical Therapy Visit Information Visit Information Visit Type Treatment Note Visit Start Time 14:32 Visit Stop Time 15:15 Total Visit Minutes 43 Visit Number 01/02 Number of CUTTING DEPARTMENT SUPERVISOR Visits 0 Evaluation Information Evaluation Date 09/17/21 PT-OP-B Current Condition Start: 09/17/21 08:27 Freq: Status: Active Protocol: Document 09/17/21 10:30 AW (Rec: 09/17/21 08:38 AW [id number]) Current Condition History of Current Condition Onset Date acute onset early August 2021 Current Complaints low back and hip/buttock pain History of Current Condition Pt began to notice groin pain with walking initially but symptoms quickly migrated mostly to right buttock. She has occasional radiation into the posterior thigh but never to the knee. Her pain is not shooting just very uncomfortable. She is able to sit and lay down (sleeps on side or back) without pain. Standing and walking increase her pain. She has not used any medications, ice, or heat. She is generally in good health but has had an aortic valve replacement (2016) and was recently diagnosed with atrial fibrillation. She is currently in cardiopulmonary rehab three times per week. She feels primarily limited by SOB. Celena typically walks without assistive device except for a walking stick in unfamiliar environments or on her inclined driveway to get mail. Celena lives alone and has good neighbors and supportive family. Prior Treatments and Tests Lumbar spine xray 09/05/21: Degenerative disc disease, moderate at L1-L2 and L2-L3, mild at L3-L4, L4-L5 and L5-S1 . Moderate facet arthropathy at L4-L5 and L5-S1. Future Testing and Treatments Planned None identified Treatment Goals Patient/Caregiver Goals Would like to get back to a walking program for pleasure and exercise. Back to yoga at home. Hopes to be able to garden without pain. Personal Factors Other Personal Factors That May Effect a fib, aortic valve Therapy/Recovery replacement (2017), osteoporosis PT-OP-C Subjective Start: 09/17/21 08:27 Freq: Status: Active Protocol: Document 10/01/21 14:32 AW (Rec: 10/01/21 15:15 AW [id number]) OP-PT Subjective Patient Comments Patient Comments Dr. Maldonado says I'm going to get a pacemaker but it hasn't been scheduled yet. Pt reports she is able to stand at least 20 minutes now without increase in pain and feels she is walking better with less pain. Patient Reported Progress Improving PT-OP-D Balance Start: 09/17/21 08:27 Freq: Status: Active Protocol: Document 09/17/21 10:30 AW (Rec: 09/17/21 17:35 AW [id number]) Balance Tests Single Limb Standing Single Limb- Right <2 sec Single Limb- Left < 3 sec PT-OP-F Manual Assessment Start: 09/17/21 08:27 Freq: Status: Active Protocol: Document 09/17/21 10:30 AW (Rec: 09/17/21 17:35 AW [id number]) Manual Assessments Soft Tissue Assessment Soft Tissue Mobility Assessment Mild tenderness with deep palpation at bilateral greater trochanters. Pain with end range hip rotation bilaterally (right more affected than left). 90/90 SLR lacks 40-45 degrees knee extension bilaterally. Moderate tenderness to palpation at right glute med. PT-OP-G Mobility & Gait Start: 09/17/21 08:27 Freq: Status: Active Protocol: Document 09/17/21 10:30 AW (Rec: 09/17/21 17:35 AW [id number]) OP Gait Assessment Comments Gait Comments Pt ambulates with increased right lateral lean, general instability, decreased stance time RLE. PT-OP-H Neuro Start: 09/17/21 08:27 Freq: Status: Active Protocol: Document 09/17/21 10:30 AW (Rec: 09/17/21 17:45 AW [id number]) Sensation Evaluation Gross Sensation Gross Sensation WNL Comments Summary Comments Pt does report occasional tingling below knee to above ankle upon waking but states it resolves immediately with activity. Deep Tendon Reflex & Clonus Assessment Deep Tendon Reflex Bilateral Achilles Deep Tendon Reflex 1+ Diminished Bilateral Patellar Deep Tendon Reflex 2+ Normal Bilateral Bicep Deep Tendon Reflex 2+ Normal Vital Signs Blood Pressure Sitting Blood Pressure (90/60-120/80 mmHg) 132/72 H Blood Pressure Source Manual Cuff,Right Upper Extremity PT-OP-J Posture/Palpation/Skin Start: 09/17/21 08:27 Freq: Status: Active Protocol: Document 09/17/21 10:30 AW (Rec: 09/17/21 17:45 AW [id number]) Posture Evaluation Comments Posture Comments In standing, pt has increased thoracic kyphosis and exaggerated lumbar lordosis. Anterior pelvic tilt. Skin Assessment Other Assessments Skin Assessment Comments Mild swelling with pitting edema bilateral ankles. Pt does wear compression stockings but does not know level of compression. PT-OP-K Range of Motion Start: 09/17/21 08:27 Freq: Status: Active Protocol: Document 09/17/21 10:30 AW (Rec: 09/17/21 17:45 AW [id number]) Hip Goniometric Range of Motion Hip Active Hip ROM WFL Yes Comments No limitation in rotation but end-range passive rotation does reproduce pain on right side. Knee Goniometric Range of Motion Knee bilat Knee ROM WFL Yes PT-OP-L Special Tests Start: 09/17/21 08:27 Freq: Status: Active Protocol: Document 09/17/21 10:30 AW (Rec: 09/17/21 17:45 AW [id number]) Special Tests Lumbar Spine Special Tests Slump Test Results negative bilaterally PT-OP-M Strength Start: 09/17/21 08:27 Freq: Status: Active Protocol: Document 09/17/21 10:30 AW (Rec: 09/17/21 17:45 AW [id number]) Hip Strength Hip Manual Muscle Testing Right Flexion (L2) 4 Good Extension (S1) 3+ Fair+ Abduction 4- Good- Left Flexion (L2) 4+ Good+ Extension (S1) 3+ Fair+ Abduction 4- Good- Knee Strength Knee Manual Muscle Testing bilat Flexion (S2) 4 Good Extension (L3) 4 Good Ankle/Foot Strength Ankle and Foot Manual Muscle Testing bilat Dorsiflexion (L4) 4+ Good+ Plantarflexion (S1) 4 Good PT-OP-Q Treatments Start: 09/17/21 08:27 Freq: Status: Active Protocol: Document 10/01/21 14:32 AW (Rec: 10/01/21 15:15 AW [id number]) Cardio Equipment Recumbent Elliptical ([employer]) Duration (Minutes) 5 Resistance 1>2 Seat Position 5 Other ~50 rpm; can carry on coversation Therapeutic Exercises Supine Exercises bridge Supine Exercise Name bridge Resistance AROM Reps/Minutes 2x10; 2nd set with TB at knees for alignment Comments HEP piriformis stretch Supine Exercise Name piriformis stretch - opp foot planted Side bilateral Reps/Minutes 30 SH x 4 Comments HEP review Sidelying Exercises clamshell Sidelying Exercise Name clamshell Side bilateral Resistance AROM Reps/Minutes x15 Comments HEP Standing Exercises lateral walk Standing Exercise Name lateral walk Side bilateral Resistance yellow loop Reps/Minutes 10' lap x 1 Comments clinic only; re-assess next visit Therapeutic Activity Therapeutic Activity diaphragmatic breathing Name diaphragmatic breathing Comments education on increasing parasympathetic tone, reducing use of accessory mm PT-OP-T Assessment and Plan Start: 09/17/21 08:27 Freq: Status: Active Protocol: Document 10/01/21 14:32 AW (Rec: 10/01/21 15:15 AW [id number]) Physical Therapy Assessment Goals Three Impairment pain with standing, walking Short Term Goal (STG) Pt will stand for 20 minutes without increase in baseline pain to improve her ability to prepare a simple meal. 10/01/21 MET per pt report STG Duration 10/29/21 Detention Goal (LTG) Pt will walk for 30 minutes without increase in baseline pain to improve her ability to participate in self-directed walking program. LTG Duration 12/10/21 Two Impairment gait Short Term Goal (STG) Pt will walk 1000 feet in 6 Minute Walk Test as a measure of improved endurance STG Duration 10/29/21 Detention Goal (LTG) Pt will score 21/24 or greater on Dynamic Gait Index as a measure of improved stability in gait and reduced falls risk LTG Duration 12/10/21 One Impairment lacks HEP Short Term Goal (STG) Pt will be independent with HEP to support therapy services provided in clinic STG Duration 10/29/21 Blueprint Maker Goal (LTG) Pt will return to yoga and walking program for regular exercise to improve overall fitness. LTG Duration 12/10/21 Assessment Summary Assessment Reviewed HEP and added supine bridge, sidelying clamshell ( to replace supine clam). Pt has benefitted from breathing practice and feels her endurance and pain symptoms are improving. Will continue general hip mobility and strengthening and introduce balance progression next visit . Physical Therapy Plan Frequency and Duration Frequency of Treatment 1-2x/week Duration of Treatment 12 weeks Plan of Care Start Date 09/17/21 Plan of Care End Date 11/26/21 Therapeutic Interventions Therapeutic Interventions Balance Training,Gait Training ,Home Exercise Program,Manual Therapy,Neuromuscular Re- education,Soft Tissue Mobilization,Therapeutic Activities,Therapeutic Exercises Modalities Cold Pack/Ice Massage,Hot Packs Next Visit Focus/Plan Next Note Type Treatment Note Next Visit Plan Progress hip strength; start static balance progression
--- NOTE | 2021-10-04 12:03 | PT.OTN ---
Current Diagnoses Low back pain, unspecified (10/04/21) Disorder of muscle, unspecified (10/04/21) Difficulty in walking, not elsewhere classified (10/04/21) Physical Therapy Treatment Note PT-OP-A Visit Information Start: 09/17/21 08:27 Freq: Status: Active Protocol: Document 10/04/21 11:20 MA (Rec: 10/04/21 12:03 MA [id number]) Out-Patient Physical Therapy Visit Information Visit Information Visit Type Treatment Note Visit Start Time 11:15 Visit Stop Time 11:58 Total Visit Minutes 43 Visit Number 02/02 Number of EMPLOYMENT COUNSELOR Visits 1 PT-OP-B Current Condition Start: 09/17/21 08:27 Freq: Status: Active Protocol: Document 09/17/21 10:30 AW (Rec: 09/17/21 08:38 AW [id number]) Current Condition History of Current Condition Onset Date acute onset early August 2021 Current Complaints low back and hip/buttock pain History of Current Condition Pt began to notice groin pain with walking initially but symptoms quickly migrated mostly to right buttock. She has occasional radiation into the posterior thigh but never to the knee. Her pain is not shooting just very uncomfortable. She is able to sit and lay down (sleeps on side or back) without pain. Standing and walking increase her pain. She has not used any medications, ice, or heat. She is generally in good health but has had an aortic valve replacement (2016) and was recently diagnosed with atrial fibrillation. She is currently in cardiopulmonary rehab three times per week. She feels primarily limited by SOB. Celena typically walks without assistive device except for a walking stick in unfamiliar environments or on her inclined driveway to get mail. Celena lives alone and has good neighbors and supportive family. Prior Treatments and Tests Lumbar spine xray 09/05/21: Degenerative disc disease, moderate at L1-L2 and L2-L3, mild at L3-L4, L4-L5 and L5-S1 . Moderate facet arthropathy at L4-L5 and L5-S1. Future Testing and Treatments Planned None identified Treatment Goals Patient/Caregiver Goals Would like to get back to a walking program for pleasure and exercise. Back to yoga at home. Hopes to be able to garden without pain. Personal Factors Other Personal Factors That May Effect a fib, aortic valve Therapy/Recovery replacement (2017), osteoporosis PT-OP-C Subjective Start: 09/17/21 08:27 Freq: Status: Active Protocol: Document 10/04/21 11:20 MA (Rec: 10/04/21 12:03 MA [id number]) OP-PT Subjective Patient Comments Patient Comments Pt feels her HEP has been helping with her back pain and she has no pain walking around today. Patient Reported Progress Improving PT-OP-D Balance Start: 09/17/21 08:27 Freq: Status: Active Protocol: Document 09/17/21 10:30 AW (Rec: 09/17/21 17:35 AW [id number]) Balance Tests Single Limb Standing Single Limb- Right <2 sec Single Limb- Left < 3 sec PT-OP-F Manual Assessment Start: 09/17/21 08:27 Freq: Status: Active Protocol: Document 09/17/21 10:30 AW (Rec: 09/17/21 17:35 AW [id number]) Manual Assessments Soft Tissue Assessment Soft Tissue Mobility Assessment Mild tenderness with deep palpation at bilateral greater trochanters. Pain with end range hip rotation bilaterally (right more affected than left). 90/90 SLR lacks 40-45 degrees knee extension bilaterally. Moderate tenderness to palpation at right glute med. PT-OP-G Mobility & Gait Start: 09/17/21 08:27 Freq: Status: Active Protocol: Document 09/17/21 10:30 AW (Rec: 09/17/21 17:35 AW [id number]) OP Gait Assessment Comments Gait Comments Pt ambulates with increased right lateral lean, general instability, decreased stance time RLE. PT-OP-H Neuro Start: 09/17/21 08:27 Freq: Status: Active Protocol: Document 09/17/21 10:30 AW (Rec: 09/17/21 17:45 AW [id number]) Sensation Evaluation Gross Sensation Gross Sensation WNL Comments Summary Comments Pt does report occasional tingling below knee to above ankle upon waking but states it resolves immediately with activity. Deep Tendon Reflex & Clonus Assessment Deep Tendon Reflex Bilateral Achilles Deep Tendon Reflex 1+ Diminished Bilateral Patellar Deep Tendon Reflex 2+ Normal Bilateral Bicep Deep Tendon Reflex 2+ Normal Vital Signs Blood Pressure Sitting Blood Pressure (90/60-120/80 mmHg) 132/72 H Blood Pressure Source Manual Cuff,Right Upper Extremity PT-OP-J Posture/Palpation/Skin Start: 09/17/21 08:27 Freq: Status: Active Protocol: Document 09/17/21 10:30 AW (Rec: 09/17/21 17:45 AW [id number]) Posture Evaluation Comments Posture Comments In standing, pt has increased thoracic kyphosis and exaggerated lumbar lordosis. Anterior pelvic tilt. Skin Assessment Other Assessments Skin Assessment Comments Mild swelling with pitting edema bilateral ankles. Pt does wear compression stockings but does not know level of compression. PT-OP-K Range of Motion Start: 09/17/21 08:27 Freq: Status: Active Protocol: Document 09/17/21 10:30 AW (Rec: 09/17/21 17:45 AW [id number]) Hip Goniometric Range of Motion Hip Active Hip ROM WFL Yes Comments No limitation in rotation but end-range passive rotation does reproduce pain on right side. Knee Goniometric Range of Motion Knee bilat Knee ROM WFL Yes PT-OP-L Special Tests Start: 09/17/21 08:27 Freq: Status: Active Protocol: Document 09/17/21 10:30 AW (Rec: 09/17/21 17:45 AW [id number]) Special Tests Lumbar Spine Special Tests Slump Test Results negative bilaterally PT-OP-M Strength Start: 09/17/21 08:27 Freq: Status: Active Protocol: Document 09/17/21 10:30 AW (Rec: 09/17/21 17:45 AW [id number]) Hip Strength Hip Manual Muscle Testing Right Flexion (L2) 4 Good Extension (S1) 3+ Fair+ Abduction 4- Good- Left Flexion (L2) 4+ Good+ Extension (S1) 3+ Fair+ Abduction 4- Good- Knee Strength Knee Manual Muscle Testing bilat Flexion (S2) 4 Good Extension (L3) 4 Good Ankle/Foot Strength Ankle and Foot Manual Muscle Testing bilat Dorsiflexion (L4) 4+ Good+ Plantarflexion (S1) 4 Good PT-OP-Q Treatments Start: 09/17/21 08:27 Freq: Status: Active Protocol: Document 10/04/21 11:20 MA (Rec: 10/04/21 12:03 MA [id number]) Cardio Equipment Recumbent Elliptical (Tweet[employer]e) Duration (Minutes) 5 Resistance 1>2 Seat Position 5 Other ~50 rpm; can carry on coversation Therapeutic Exercises Supine Exercises bridge Supine Exercise Name bridge Resistance AROM Reps/Minutes 2x10; 2nd set with TB at knees for alignment Comments HEP piriformis stretch Supine Exercise Name piriformis stretch - opp foot planted Side bilateral Reps/Minutes 30 SH x 4 Comments HEP review Sidelying Exercises clamshell Sidelying Exercise Name clamshell Side bilateral Resistance AROM Reps/Minutes x10 Comments limited ROM Standing Exercises lateral walk Standing Exercise Name lateral walk Side bilateral Resistance yellow loop Reps/Minutes 10' lap x 2 Comments clinic only; cues to avoid dragging foot Manual Therapy Treatment Soft Tissue Mobilization Glutes Body Location R glute med and max Mobilization Type Myofascial Release,Sustained Pressure,Trigger Point Release Intensity/Depth Moderate Body Position Supine Comments during piriformis stretch Neuro Re-Education Treatment Balance Activities Corner Balance Equipment w/ chair and corner Comments 1. WBOS EO/EC 2. NBOS Eo/EC 3. tandem stance (EO only- added to HEP) 4. SL- pt unable to do unless holding onto chair infront of her PT-OP-T Assessment and Plan Start: 09/17/21 08:27 Freq: Status: Active Protocol: Document 10/04/21 11:20 MA (Rec: 10/04/21 12:03 MA [id number]) Physical Therapy Assessment Goals Three Impairment pain with standing, walking Short Term Goal (STG) Pt will stand for 20 minutes without increase in baseline pain to improve her ability to prepare a simple meal. 10/01/21 MET per pt report STG Duration 10/29/21 Air Conditioner Installer Helper Goal (LTG) Pt will walk for 30 minutes without increase in baseline pain to improve her ability to participate in self-directed walking program. LTG Duration 12/10/21 Two Impairment gait Short Term Goal (STG) Pt will walk 1000 feet in 6 Minute Walk Test as a measure of improved endurance STG Duration 10/29/21 Retirement Goal (LTG) Pt will score 21/24 or greater on Dynamic Gait Index as a measure of improved stability in gait and reduced falls risk LTG Duration 12/10/21 One Impairment lacks HEP Short Term Goal (STG) Pt will be independent with HEP to support therapy services provided in clinic STG Duration 10/29/21 Retirement Goal (LTG) Pt will return to yoga and walking program for regular exercise to improve overall fitness. LTG Duration 12/10/21 Assessment Summary Assessment Pt is no longer having back and R glute pain when walking around. She does well with exercises this session but can only ER hip ~15 degrees in SL bilaterally due to mm weakness. Celena is able to balance well with EO and EC while in WBOS and NBOS but is challenged in tandem stance and is unable to stand SL without holding on for balance . Added tandem stance corner balance exercise with eyes open to HEP. Will continue working on balance next session. Physical Therapy Plan Frequency and Duration Frequency of Treatment 1-2x/week Duration of Treatment 12 weeks Plan of Care Start Date 09/17/21 Plan of Care End Date 11/26/21 Therapeutic Interventions Therapeutic Interventions Balance Training,Gait Training ,Home Exercise Program,Manual Therapy,Neuromuscular Re- education,Soft Tissue Mobilization,Therapeutic Activities,Therapeutic Exercises Modalities Cold Pack/Ice Massage,Hot Packs Next Visit Focus/Plan Next Note Type Treatment Note Next Visit Plan Progress hip strength; review corner balance and progress balance as able
--- NOTE | 2021-10-07 14:27 | PT.OTN ---
Current Diagnoses Low back pain, unspecified (10/07/21) Disorder of muscle, unspecified (10/07/21) Difficulty in walking, not elsewhere classified (10/07/21) Physical Therapy Treatment Note PT-OP-A Visit Information Start: 09/17/21 08:27 Freq: Status: Active Protocol: Document 10/07/21 13:41 MA (Rec: 10/07/21 14:27 MA [id number]) Out-Patient Physical Therapy Visit Information Visit Information Visit Type Treatment Note Visit Start Time 13:45 Visit Stop Time 14:24 Total Visit Minutes 39 Visit Number 03/04 Number of INVENTORY AUDIT CLERK Visits 2 PT-OP-B Current Condition Start: 09/17/21 08:27 Freq: Status: Active Protocol: Document 09/17/21 10:30 AW (Rec: 09/17/21 08:38 AW [id number]) Current Condition History of Current Condition Onset Date acute onset early August 2021 Current Complaints low back and hip/buttock pain History of Current Condition Pt began to notice groin pain with walking initially but symptoms quickly migrated mostly to right buttock. She has occasional radiation into the posterior thigh but never to the knee. Her pain is not shooting just very uncomfortable. She is able to sit and lay down (sleeps on side or back) without pain. Standing and walking increase her pain. She has not used any medications, ice, or heat. She is generally in good health but has had an aortic valve replacement (2016) and was recently diagnosed with atrial fibrillation. She is currently in cardiopulmonary rehab three times per week. She feels primarily limited by SOB. Celena typically walks without assistive device except for a walking stick in unfamiliar environments or on her inclined driveway to get mail. Celena lives alone and has good neighbors and supportive family. Prior Treatments and Tests Lumbar spine xray 09/05/21: Degenerative disc disease, moderate at L1-L2 and L2-L3, mild at L3-L4, L4-L5 and L5-S1 . Moderate facet arthropathy at L4-L5 and L5-S1. Future Testing and Treatments Planned None identified Treatment Goals Patient/Caregiver Goals Would like to get back to a walking program for pleasure and exercise. Back to yoga at home. Hopes to be able to garden without pain. Personal Factors Other Personal Factors That May Effect a fib, aortic valve Therapy/Recovery replacement (2017), osteoporosis PT-OP-C Subjective Start: 09/17/21 08:27 Freq: Status: Active Protocol: Document 10/07/21 13:41 MA (Rec: 10/07/21 14:27 MA [id number]) OP-PT Subjective Patient Comments Patient Comments Pt has had no pain recently. She has more swelling in her LEs though and is very short of breath today to the point where she debated cancelling PT. She is getting her pacemaker placed on October 23. PT-OP-D Balance Start: 09/17/21 08:27 Freq: Status: Active Protocol: Document 09/17/21 10:30 AW (Rec: 09/17/21 17:35 AW [id number]) Balance Tests Single Limb Standing Single Limb- Right <2 sec Single Limb- Left < 3 sec PT-OP-F Manual Assessment Start: 09/17/21 08:27 Freq: Status: Active Protocol: Document 09/17/21 10:30 AW (Rec: 09/17/21 17:35 AW [id number]) Manual Assessments Soft Tissue Assessment Soft Tissue Mobility Assessment Mild tenderness with deep palpation at bilateral greater trochanters. Pain with end range hip rotation bilaterally (right more affected than left). 90/90 SLR lacks 40-45 degrees knee extension bilaterally. Moderate tenderness to palpation at right glute med. PT-OP-G Mobility & Gait Start: 09/17/21 08:27 Freq: Status: Active Protocol: Document 09/17/21 10:30 AW (Rec: 09/17/21 17:35 AW [id number]) OP Gait Assessment Comments Gait Comments Pt ambulates with increased right lateral lean, general instability, decreased stance time RLE. PT-OP-H Neuro Start: 09/17/21 08:27 Freq: Status: Active Protocol: Document 09/17/21 10:30 AW (Rec: 09/17/21 17:45 AW [id number]) Sensation Evaluation Gross Sensation Gross Sensation WNL Comments Summary Comments Pt does report occasional tingling below knee to above ankle upon waking but states it resolves immediately with activity. Deep Tendon Reflex & Clonus Assessment Deep Tendon Reflex Bilateral Achilles Deep Tendon Reflex 1+ Diminished Bilateral Patellar Deep Tendon Reflex 2+ Normal Bilateral Bicep Deep Tendon Reflex 2+ Normal Vital Signs Blood Pressure Sitting Blood Pressure (90/60-120/80 mmHg) 132/72 H Blood Pressure Source Manual Cuff,Right Upper Extremity PT-OP-J Posture/Palpation/Skin Start: 09/17/21 08:27 Freq: Status: Active Protocol: Document 09/17/21 10:30 AW (Rec: 09/17/21 17:45 AW [id number]) Posture Evaluation Comments Posture Comments In standing, pt has increased thoracic kyphosis and exaggerated lumbar lordosis. Anterior pelvic tilt. Skin Assessment Other Assessments Skin Assessment Comments Mild swelling with pitting edema bilateral ankles. Pt does wear compression stockings but does not know level of compression. PT-OP-K Range of Motion Start: 09/17/21 08:27 Freq: Status: Active Protocol: Document 09/17/21 10:30 AW (Rec: 09/17/21 17:45 AW [id number]) Hip Goniometric Range of Motion Hip Active Hip ROM WFL Yes Comments No limitation in rotation but end-range passive rotation does reproduce pain on right side. Knee Goniometric Range of Motion Knee bilat Knee ROM WFL Yes PT-OP-L Special Tests Start: 09/17/21 08:27 Freq: Status: Active Protocol: Document 09/17/21 10:30 AW (Rec: 09/17/21 17:45 AW [id number]) Special Tests Lumbar Spine Special Tests Slump Test Results negative bilaterally PT-OP-M Strength Start: 09/17/21 08:27 Freq: Status: Active Protocol: Document 09/17/21 10:30 AW (Rec: 09/17/21 17:45 AW [id number]) Hip Strength Hip Manual Muscle Testing Right Flexion (L2) 4 Good Extension (S1) 3+ Fair+ Abduction 4- Good- Left Flexion (L2) 4+ Good+ Extension (S1) 3+ Fair+ Abduction 4- Good- Knee Strength Knee Manual Muscle Testing bilat Flexion (S2) 4 Good Extension (L3) 4 Good Ankle/Foot Strength Ankle and Foot Manual Muscle Testing bilat Dorsiflexion (L4) 4+ Good+ Plantarflexion (S1) 4 Good PT-OP-Q Treatments Start: 09/17/21 08:27 Freq: Status: Active Protocol: Document 10/07/21 13:41 MA (Rec: 10/07/21 14:27 MA [id number]) Cardio Equipment Recumbent Elliptical (SoftLayer) Duration (Minutes) 5 Resistance 2 Seat Position 5 Other ~50 rpm; can carry on coversation Therapeutic Exercises Supine Exercises bridge Supine Exercise Name bridge Resistance AROM Reps/Minutes 2x10; 2nd set with TB at knees for alignment Comments HEP hip adduction squeeze Supine Exercise Name hip adduction squeeze Side bilateral Resistance sm ball (green) Reps/Minutes 5SH x 10; 2 sets Comments HEP Sidelying Exercises clamshell Sidelying Exercise Name clamshell Side bilateral Resistance AROM Reps/Minutes x10 Comments limited ROM Manual Therapy Treatment Soft Tissue Mobilization Glutes Body Location R glute med and max Mobilization Type Myofascial Release,Sustained Pressure,Trigger Point Release Intensity/Depth Moderate Body Position Supine Comments during piriformis stretch Neuro Re-Education Treatment Balance Activities Corner Balance Equipment w/ chair and corner Comments 1. tandem stance EO/EC -seated rest breaks between sides due to fatigue PT-OP-T Assessment and Plan Start: 09/17/21 08:27 Freq: Status: Active Protocol: Document 10/07/21 13:41 MA (Rec: 10/07/21 14:27 MA [id number]) Physical Therapy Assessment Goals Three Impairment pain with standing, walking Short Term Goal (STG) Pt will stand for 20 minutes without increase in baseline pain to improve her ability to prepare a simple meal. 10/01/21 MET per pt report STG Duration 10/29/21 Scrap Breaker Goal (LTG) Pt will walk for 30 minutes without increase in baseline pain to improve her ability to participate in self-directed walking program. LTG Duration 12/10/21 Two Impairment gait Short Term Goal (STG) Pt will walk 1000 feet in 6 Minute Walk Test as a measure of improved endurance STG Duration 10/29/21 Halfway Goal (LTG) Pt will score 21/24 or greater on Dynamic Gait Index as a measure of improved stability in gait and reduced falls risk LTG Duration 12/10/21 One Impairment lacks HEP Short Term Goal (STG) Pt will be independent with HEP to support therapy services provided in clinic STG Duration 10/29/21 Halfway Goal (LTG) Pt will return to yoga and walking program for regular exercise to improve overall fitness. LTG Duration 12/10/21 Assessment Summary Assessment Pt required more frequent rest breaks this session due to already having cardiac rehab this morning. Was unable to progress to more standing strengthening exercises due to pt's fatigue. Discussed trying to avoid having both cardiac rehab and PT on the same days so pt does not feel so worn out. Physical Therapy Plan Frequency and Duration Frequency of Treatment 1-2x/week Duration of Treatment 12 weeks Plan of Care Start Date 09/17/21 Plan of Care End Date 11/26/21 Therapeutic Interventions Therapeutic Interventions Balance Training,Gait Training ,Home Exercise Program,Manual Therapy,Neuromuscular Re- education,Soft Tissue Mobilization,Therapeutic Activities,Therapeutic Exercises Modalities Cold Pack/Ice Massage,Hot Packs Next Visit Focus/Plan Next Note Type Treatment Note Next Visit Plan Progress hip strength in standing (marching, standing hip ext & abd); try progrsesing to balance on blue pad
--- NOTE | 2021-10-15 10:32 | PT.OTN ---
Current Diagnoses Low back pain, unspecified (10/15/21) Disorder of muscle, unspecified (10/15/21) Difficulty in walking, not elsewhere classified (10/15/21) Physical Therapy Treatment Note PT-OP-A Visit Information Start: 09/17/21 08:27 Freq: Status: Active Protocol: Document 10/15/21 08:50 AW (Rec: 10/15/21 10:32 AW [id number]) Out-Patient Physical Therapy Visit Information Visit Information Visit Type Treatment Note Visit Start Time 09:45 Visit Stop Time 10:25 Total Visit Minutes 40 Visit Number 04/04 Number of TELEPHONE SUPERVISOR Visits 0 Evaluation Information Evaluation Date 09/17/21 PT-OP-B Current Condition Start: 09/17/21 08:27 Freq: Status: Active Protocol: Document 09/17/21 10:30 AW (Rec: 09/17/21 08:38 AW [id number]) Current Condition History of Current Condition Onset Date acute onset early August 2021 Current Complaints low back and hip/buttock pain History of Current Condition Pt began to notice groin pain with walking initially but symptoms quickly migrated mostly to right buttock. She has occasional radiation into the posterior thigh but never to the knee. Her pain is not shooting just very uncomfortable. She is able to sit and lay down (sleeps on side or back) without pain. Standing and walking increase her pain. She has not used any medications, ice, or heat. She is generally in good health but has had an aortic valve replacement (2016) and was recently diagnosed with atrial fibrillation. She is currently in cardiopulmonary rehab three times per week. She feels primarily limited by SOB. Celnea typically walks without assistive device except for a walking stick in unfamiliar environments or on her inclined driveway to get mail. Celena lives alone and has good neighbors and supportive family. Prior Treatments and Tests Lumbar spine xray 09/05/21: Degenerative disc disease, moderate at L1-L2 and L2-L3, mild at L3-L4, L4-L5 and L5-S1 . Moderate facet arthropathy at L4-L5 and L5-S1. Future Testing and Treatments Planned None identified Treatment Goals Patient/Caregiver Goals Would like to get back to a walking program for pleasure and exercise. Back to yoga at home. Hopes to be able to garden without pain. Personal Factors Other Personal Factors That May Effect a fib, aortic valve Therapy/Recovery replacement (2017), osteoporosis PT-OP-C Subjective Start: 09/17/21 08:27 Freq: Status: Active Protocol: Document 10/15/21 08:50 AW (Rec: 10/15/21 10:32 AW [id number]) OP-PT Subjective Patient Comments Patient Comments Planning to have pacemaker on 10/23 and ablation on 10/31. Has been cleared to return to cardiac rehab and PT on the . Pt happy with progress and reports she can now walk without fear of pain. Patient Reported Progress Improving PT-OP-D Balance Start: 09/17/21 08:27 Freq: Status: Active Protocol: Document 09/17/21 10:30 AW (Rec: 09/17/21 17:35 AW [id number]) Balance Tests Single Limb Standing Single Limb- Right <2 sec Single Limb- Left < 3 sec PT-OP-F Manual Assessment Start: 09/17/21 08:27 Freq: Status: Active Protocol: Document 09/17/21 10:30 AW (Rec: 09/17/21 17:35 AW [id number]) Manual Assessments Soft Tissue Assessment Soft Tissue Mobility Assessment Mild tenderness with deep palpation at bilateral greater trochanters. Pain with end range hip rotation bilaterally (right more affected than left). 90/90 SLR lacks 40-45 degrees knee extension bilaterally. Moderate tenderness to palpation at right glute med. PT-OP-G Mobility & Gait Start: 09/17/21 08:27 Freq: Status: Active Protocol: Document 09/17/21 10:30 AW (Rec: 09/17/21 17:35 AW [id number]) OP Gait Assessment Comments Gait Comments Pt ambulates with increased right lateral lean, general instability, decreased stance time RLE. PT-OP-H Neuro Start: 09/17/21 08:27 Freq: Status: Active Protocol: Document 09/17/21 10:30 AW (Rec: 09/17/21 17:45 AW [id number]) Sensation Evaluation Gross Sensation Gross Sensation WNL Comments Summary Comments Pt does report occasional tingling below knee to above ankle upon waking but states it resolves immediately with activity. Deep Tendon Reflex & Clonus Assessment Deep Tendon Reflex Bilateral Achilles Deep Tendon Reflex 1+ Diminished Bilateral Patellar Deep Tendon Reflex 2+ Normal Bilateral Bicep Deep Tendon Reflex 2+ Normal Vital Signs Blood Pressure Sitting Blood Pressure (90/60-120/80 mmHg) 132/72 H Blood Pressure Source Manual Cuff,Right Upper Extremity PT-OP-J Posture/Palpation/Skin Start: 09/17/21 08:27 Freq: Status: Active Protocol: Document 09/17/21 10:30 AW (Rec: 09/17/21 17:45 AW [id number]) Posture Evaluation Comments Posture Comments In standing, pt has increased thoracic kyphosis and exaggerated lumbar lordosis. Anterior pelvic tilt. Skin Assessment Other Assessments Skin Assessment Comments Mild swelling with pitting edema bilateral ankles. Pt does wear compression stockings but does not know level of compression. PT-OP-K Range of Motion Start: 09/17/21 08:27 Freq: Status: Active Protocol: Document 09/17/21 10:30 AW (Rec: 09/17/21 17:45 AW [id number]) Hip Goniometric Range of Motion Hip Active Hip ROM WFL Yes Comments No limitation in rotation but end-range passive rotation does reproduce pain on right side. Knee Goniometric Range of Motion Knee bilat Knee ROM WFL Yes PT-OP-L Special Tests Start: 09/17/21 08:27 Freq: Status: Active Protocol: Document 09/17/21 10:30 AW (Rec: 09/17/21 17:45 AW [id number]) Special Tests Lumbar Spine Special Tests Slump Test Results negative bilaterally PT-OP-M Strength Start: 09/17/21 08:27 Freq: Status: Active Protocol: Document 09/17/21 10:30 AW (Rec: 09/17/21 17:45 AW [id number]) Hip Strength Hip Manual Muscle Testing Right Flexion (L2) 4 Good Extension (S1) 3+ Fair+ Abduction 4- Good- Left Flexion (L2) 4+ Good+ Extension (S1) 3+ Fair+ Abduction 4- Good- Knee Strength Knee Manual Muscle Testing bilat Flexion (S2) 4 Good Extension (L3) 4 Good Ankle/Foot Strength Ankle and Foot Manual Muscle Testing bilat Dorsiflexion (L4) 4+ Good+ Plantarflexion (S1) 4 Good PT-OP-Q Treatments Start: 09/17/21 08:27 Freq: Status: Active Protocol: Document 10/15/21 08:50 AW (Rec: 10/15/21 10:32 AW [id number]) Cardio Equipment Recumbent Elliptical (Biodex) Duration (Minutes) 5 Resistance 2 Seat Position 5 Other ~50 rpm; can carry on coversation Therapeutic Exercises Standing Exercises hip extension Standing Exercise Name hip extension Side bilateral Resistance AROM Equipment Used rail support Reps/Minutes 2x12 Comments cued limit trunk lean; HEP hip abduction Standing Exercise Name hip abduction Side bilateral Resistance AROM Equipment Used rail support Reps/Minutes 2x12 Comments cued leg in line w/ or behind trunk; HEP october Standing Exercise Name march Side bilateral Equipment Used rail support prn Reps/Minutes x15 BLE Comments cued high knees; HEP Other Exercises sit to stand Other Exercise Name sit to stand Equipment Used chair, no UE support Reps/Minutes TB1 at knees to correct valgus impulse Comments HEP; cued weight shift, ecc control Neuro Re-Education Treatment Balance Activities foam stance Details foam stance Surface blue foam Reps/Duration 30 sec all conditions Comments - WBOS EO with head turns and nods, EC - NBOS EO with head turns and nods PT-OP-T Assessment and Plan Start: 09/17/21 08:27 Freq: Status: Active Protocol: Document 10/15/21 08:50 AW (Rec: 10/15/21 10:32 AW [id number]) Physical Therapy Assessment Goals Three Impairment pain with standing, walking Short Term Goal (STG) Pt will stand for 20 minutes without increase in baseline pain to improve her ability to prepare a simple meal. 10/01/21 MET per pt report STG Duration 10/29/21 Safety And Security Manager Goal (LTG) Pt will walk for 30 minutes without increase in baseline pain to improve her ability to participate in self-directed walking program. LTG Duration 12/10/21 Two Impairment gait Short Term Goal (STG) Pt will walk 1000 feet in 6 Minute Walk Test as a measure of improved endurance STG Duration 10/29/21 Mcc Goal (LTG) Pt will score 21/24 or greater on Dynamic Gait Index as a measure of improved stability in gait and reduced falls risk LTG Duration 12/10/21 One Impairment lacks HEP Short Term Goal (STG) Pt will be independent with HEP to support therapy services provided in clinic STG Duration 10/29/21 Safety And Security Manager Goal (LTG) Pt will return to yoga and walking program for regular exercise to improve overall fitness. LTG Duration 12/10/21 Assessment Summary Assessment Discussed cutting visits to weekly at this point as pt is progressing well and now able to walk without fear of pain. She tolerated increase in standing activity today and PT assigned standing exercise for HEP. Plan to see pt back once weekly after pacemaker and ablation. Physical Therapy Plan Frequency and Duration Frequency of Treatment 1-2x/week Duration of Treatment 12 weeks Plan of Care Start Date 09/17/21 Plan of Care End Date 11/26/21 Therapeutic Interventions Therapeutic Interventions Balance Training,Gait Training ,Home Exercise Program,Manual Therapy,Neuromuscular Re- education,Soft Tissue Mobilization,Therapeutic Activities,Therapeutic Exercises Modalities Cold Pack/Ice Massage,Hot Packs Next Visit Focus/Plan Next Note Type Progress Note
--- NOTE | 2021-11-12 11:34 | PT.OTN ---
Current Diagnoses Low back pain, unspecified (11/12/21) Disorder of muscle, unspecified (11/12/21) Difficulty in walking, not elsewhere classified (11/12/21) Physical Therapy Treatment Note PT-OP-A Visit Information Start: 09/17/21 08:27 Freq: Status: Active Protocol: Document 11/12/21 09:47 AW (Rec: 11/12/21 10:33 AW [id number]) Out-Patient Physical Therapy Visit Information Visit Information Visit Type Discharge Summary Visit Start Time 09:50 Visit Stop Time 10:30 Total Visit Minutes 40 Visit Number 05/05 Number of CONTRACT CLERK Visits 0 Evaluation Information Evaluation Date 09/17/21 PT-OP-B Current Condition Start: 09/17/21 08:27 Freq: Status: Active Protocol: Document 09/17/21 10:30 AW (Rec: 09/17/21 08:38 AW [id number]) Current Condition History of Current Condition Onset Date acute onset early August 2021 Current Complaints low back and hip/buttock pain History of Current Condition Pt began to notice groin pain with walking initially but symptoms quickly migrated mostly to right buttock. She has occasional radiation into the posterior thigh but never to the knee. Her pain is not shooting just very uncomfortable. She is able to sit and lay down (sleeps on side or back) without pain. Standing and walking increase her pain. She has not used any medications, ice, or heat. She is generally in good health but has had an aortic valve replacement (2016) and was recently diagnosed with atrial fibrillation. She is currently in cardiopulmonary rehab three times per week. She feels primarily limited by SOB. Celena typically walks without assistive device except for a walking stick in unfamiliar environments or on her inclined driveway to get mail. Celena lives alone and has good neighbors and supportive family. Prior Treatments and Tests Lumbar spine xray 09/05/21: Degenerative disc disease, moderate at L1-L2 and L2-L3, mild at L3-L4, L4-L5 and L5-S1 . Moderate facet arthropathy at L4-L5 and L5-S1. Future Testing and Treatments Planned None identified Treatment Goals Patient/Caregiver Goals Would like to get back to a walking program for pleasure and exercise. Back to yoga at home. Hopes to be able to garden without pain. Personal Factors Other Personal Factors That May Effect a fib, aortic valve Therapy/Recovery replacement (2017), osteoporosis PT-OP-C Subjective Start: 09/17/21 08:27 Freq: Status: Active Protocol: Document 11/12/21 09:47 AW (Rec: 11/12/21 10:33 AW [id number]) OP-PT Subjective Patient Comments Patient Comments Pacemaker and ablation went well. Pt is feeling more energetic and less SOB. PT-OP-D Balance Start: 09/17/21 08:27 Freq: Status: Active Protocol: Document 09/17/21 10:30 AW (Rec: 09/17/21 17:35 AW [id number]) Balance Tests Single Limb Standing Single Limb- Right <2 sec Single Limb- Left < 3 sec PT-OP-F Manual Assessment Start: 09/17/21 08:27 Freq: Status: Active Protocol: Document 09/17/21 10:30 AW (Rec: 09/17/21 17:35 AW [id number]) Manual Assessments Soft Tissue Assessment Soft Tissue Mobility Assessment Mild tenderness with deep palpation at bilateral greater trochanters. Pain with end range hip rotation bilaterally (right more affected than left). 90/90 SLR lacks 40-45 degrees knee extension bilaterally. Moderate tenderness to palpation at right glute med. PT-OP-G Mobility & Gait Start: 09/17/21 08:27 Freq: Status: Active Protocol: Document 09/17/21 10:30 AW (Rec: 09/17/21 17:35 AW [id number]) OP Gait Assessment Comments Gait Comments Pt ambulates with increased right lateral lean, general instability, decreased stance time RLE. PT-OP-H Neuro Start: 09/17/21 08:27 Freq: Status: Active Protocol: Document 09/17/21 10:30 AW (Rec: 09/17/21 17:45 AW [id number]) Sensation Evaluation Gross Sensation Gross Sensation WNL Comments Summary Comments Pt does report occasional tingling below knee to above ankle upon waking but states it resolves immediately with activity. Deep Tendon Reflex & Clonus Assessment Deep Tendon Reflex Bilateral Achilles Deep Tendon Reflex 1+ Diminished Bilateral Patellar Deep Tendon Reflex 2+ Normal Bilateral Bicep Deep Tendon Reflex 2+ Normal Vital Signs Blood Pressure Sitting Blood Pressure (90/60-120/80 mmHg) 132/72 H Blood Pressure Source Manual Cuff,Right Upper Extremity PT-OP-J Posture/Palpation/Skin Start: 09/17/21 08:27 Freq: Status: Active Protocol: Document 09/17/21 10:30 AW (Rec: 09/17/21 17:45 AW [id number]) Posture Evaluation Comments Posture Comments In standing, pt has increased thoracic kyphosis and exaggerated lumbar lordosis. Anterior pelvic tilt. Skin Assessment Other Assessments Skin Assessment Comments Mild swelling with pitting edema bilateral ankles. Pt does wear compression stockings but does not know level of compression. PT-OP-K Range of Motion Start: 09/17/21 08:27 Freq: Status: Active Protocol: Document 09/17/21 10:30 AW (Rec: 09/17/21 17:45 AW [id number]) Hip Goniometric Range of Motion Hip Active Hip ROM WFL Yes Comments No limitation in rotation but end-range passive rotation does reproduce pain on right side. Knee Goniometric Range of Motion Knee bilat Knee ROM WFL Yes PT-OP-L Special Tests Start: 09/17/21 08:27 Freq: Status: Active Protocol: Document 09/17/21 10:30 AW (Rec: 09/17/21 17:45 AW [id number]) Special Tests Lumbar Spine Special Tests Slump Test Results negative bilaterally PT-OP-M Strength Start: 09/17/21 08:27 Freq: Status: Active Protocol: Document 09/17/21 10:30 AW (Rec: 09/17/21 17:45 AW [id number]) Hip Strength Hip Manual Muscle Testing Right Flexion (L2) 4 Good Extension (S1) 3+ Fair+ Abduction 4- Good- Left Flexion (L2) 4+ Good+ Extension (S1) 3+ Fair+ Abduction 4- Good- Knee Strength Knee Manual Muscle Testing bilat Flexion (S2) 4 Good Extension (L3) 4 Good Ankle/Foot Strength Ankle and Foot Manual Muscle Testing bilat Dorsiflexion (L4) 4+ Good+ Plantarflexion (S1) 4 Good PT-OP-Q Treatments Start: 09/17/21 08:27 Freq: Status: Active Protocol: Document 11/12/21 09:47 AW (Rec: 11/12/21 10:33 AW [id number]) Cardio Equipment Recumbent Elliptical (BiodChalkfly) Duration (Minutes) 5 Resistance 4 Seat Position 5 Other ~40 rpm avg; respiratory effort less than before. Therapeutic Exercises Standing Exercises hip extension Standing Exercise Name hip extension Side bilateral Resistance AROM Equipment Used rail support Reps/Minutes 2x12 Comments good postural awareness; HEP review hip abduction Standing Exercise Name hip abduction Side bilateral Resistance AROM Equipment Used rail support Reps/Minutes 2x12 Comments pt able to limit/eliminate hip flexion; HEP review march Standing Exercise Name march Side bilateral Equipment Used rail support prn Reps/Minutes x15 BLE Comments cued high knees; HEP Other Exercises sit to stand Other Exercise Name 5xSTS Comments 14.5 sec no arms PT-OP-T Assessment and Plan Start: 09/17/21 08:27 Freq: Status: Active Protocol: Document 11/12/21 09:47 AW (Rec: 11/12/21 10:33 AW [id number]) Physical Therapy Assessment Goals Three Impairment pain with standing, walking Short Term Goal (STG) Pt will stand for 20 minutes without increase in baseline pain to improve her ability to prepare a simple meal. 10/01/21 MET per pt report STG Duration 10/29/21 4 H Youth Development Specialist Goal (LTG) Pt will walk for 30 minutes without increase in baseline pain to improve her ability to participate in self-directed walking program. 11/12/21 - GOAL MET per pt report LTG Duration 12/10/21 Two Impairment gait Short Term Goal (STG) Pt will walk 1000 feet in 6 Minute Walk Test as a measure of improved endurance 11/12/21 - Pt walks 1070 feet in 6 minutes. GOAL MET STG Duration 10/29/21 4 H Youth Development Specialist Goal (LTG) Pt will score 21/24 or greater on Dynamic Gait Index as a measure of improved stability in gait and reduced falls risk 11/12/21 - Pt scores 21/24 on DGI today. GOAL MET LTG Duration 12/10/21 One Impairment lacks HEP Short Term Goal (STG) Pt will be independent with HEP to support therapy services provided in clinic. 11/12/21 - MET STG Duration 10/29/21 Penitentiary Goal (LTG) Pt will return to yoga and walking program for regular exercise to improve overall fitness. 11/12/21 - Pt participates in cardiac rehab and independent walking program. Has not yet returned to yoga but is considering it. LTG Duration 12/10/21 Assessment Summary Assessment Pt is doing well. She is confident with HEP. She feels ready for discharge after reviewing HEP today and assessing goals which she has met. Physical Therapy Plan Therapeutic Interventions Therapeutic Interventions Balance Training,Gait Training ,Home Exercise Program,Manual Therapy,Neuromuscular Re- education,Soft Tissue Mobilization,Therapeutic Activities,Therapeutic Exercises Discharge Physical Therapy Discharge Reasons Goals Met Discharge Comments Pt is appropriate for discharge having met all goals . She is hoping to focus more on cardiac rehab at this point and is able to do so with less pain and greater endurance. She understands she may return to PT at any time with a new referral.
== END 2021-11-13 09:41 ==
LOC: PHYS 09:45
PROVIDERS: Family Provider Family Medicine; PCP Family Medicine; Referring Provider Physician Assistant; Visit Provider Physician Assistant
DX: M54.50 Low back pain, unspecified (principal); M62.9 Disorder of muscle, unspecified; R26.2 Difficulty in walking, not elsewhere classified
CPT/HCPCS: 97110; 97112; 97116; 97140; 97162; 97530; 97535

== ENCOUNTER 2021-12-18 08:30 | Outpatient (RCR) | payer MEDICARE, OTHER, SELFPAY | END 2021-12-18 15:47 | LOC: CAR 08:30 | PROVIDERS: PCP Family Medicine; Referring Provider Internal Medicine Interventional Cardiology; Visit Provider Internal Medicine Interventional Cardiology | DX: Z95.2 Presence of prosthetic heart valve (principal) | CPT/HCPCS: 93798 ==

== ENCOUNTER → 2021-12-25 09:43 | Outpatient (CLI) | payer MEDICARE, OTHER, SELFPAY ==
--- NOTE | 2021-12-25 09:45 | DI.US.S_ITS ---
PROCEDURE: US ABDOMEN COMPLETE INDICATIONS: BLOATING TECHNIQUE: Real-time scanning was performed of the abdominal and retroperitoneal organs, with image documentation. COMPARISON: None. FINDINGS: Liver: Liver is normal in size . There is mild increased echogenicity which may indicate diffuse hepatic steatosis. Gallbladder: Unremarkable. Biliary ducts: Intrahepatic bile ducts are non-dilated. Extrahepatic bile duct caliber measures 4.6 mm. Normal is 6-7 mm or less in diameter, or 10 mm or less post-cholecystectomy. Pancreas: Visualized portions of the pancreas are sonographically normal. Spleen: Spleen is normal in size and homogeneous in echotexture. Kidneys: Kidneys are normal in size and echotexture. Right kidney measures 9.8 cm long; left kidney measures 9.1 cm long. No hydronephrosis or nephrolithiasis. No solid masses. Aorta: Visualized aorta is normal in caliber at less than 3 cm. Iliacs: Proximal common iliac arteries are normal in caliber at less than 2.5 cm. IVC: Intrahepatic inferior vena cava is patent. Miscellaneous: No free abdominal fluid. IMPRESSION: Findings which may indicate mild diffuse hepatic steatosis. Otherwise unremarkable abdominal ultrasound. Dictated by: Jerry Wick M.D. on 12/25/2021 at 12:18 Approved by: Jerry Wick M.D. on 12/25/2021 at 12:21
== END ==
PROVIDERS: Family Provider Family Medicine; PCP Family Medicine; Referring Provider Family Medicine; Visit Provider Family Medicine
DX: R18.8 Other ascites (principal)
CPT/HCPCS: 76700

== ENCOUNTER → 2022-01-17 09:35 | Outpatient (CLI) | payer MEDICARE, OTHER, SELFPAY ==
--- NOTE | 2022-01-17 09:36 | DI.CT.S_ITS ---
PROCEDURE: CT CHEST WO CON INDICATIONS: COPD with SOB TECHNIQUE: Noncontrast 5 mm thick sections acquired from the pulmonary apices to the posterior costophrenic angles. 1 mm lung window, 5 mm thick coronal and sagittal and 7 mm axial MIP reformats were then acquired. For radiation dose reduction, the following was used: automated exposure control, adjustment of mA and/or kV according to patient size. COMPARISON: [facility], CR, XR CHEST 2 VIEWS, 10/24/2021, 6:59. FINDINGS: Image quality: Excellent. Lungs and pleura: 3 mm nodule in the right middle lobe series 4, image 155. No acute air space opacities. No pleural effusions or pneumothorax. Central and peripheral airways are patent and normal in caliber. Mediastinum: Heart size is enlarged. Status post aortic valve replacement. No pericardial effusion. No mediastinal adenopathy by size criteria. The aorta has atherosclerosis with no aneurysmal dilatation. The coronary arteries have atherosclerotic calcifications. Esophagus is normal in caliber. No hiatal hernia. Bones and chest wall: No suspicious bony lesions. Compression fracture of T8 unchanged compared to prior x-ray on 10/24/2021. No axillary or supraclavicular adenopathy by size criteria. Thyroid gland is normal. Abdomen: Limited visualization of the upper abdomen shows no acute abnormality. IMPRESSION: 1. No acute abnormality of the chest. 2. Cardiomegaly, coronary artery calcifications, and status post TAVR. 3. Remote compression fracture of T8. 4. 3 mm nodule in the right middle lobe. For nodule less than 4 mm in a high risk patient recommend follow-up CT in 12 months. Dictated by: Balwinder Bonilla M.D. on 01/17/2022 at 11:25 Approved by: Balwinder Bonilla M.D. on 01/17/2022 at 11:32
== END ==
PROVIDERS: Family Provider Family Medicine; PCP Family Medicine; Referring Provider Family Medicine; Visit Provider Family Medicine
DX: J44.1 Chronic obstructive pulmonary disease with (acute) exacerbation (principal); M48.54XA Collapsed vertebra, not elsewhere classified, thoracic region, initial encounter for fracture; R06.02 Shortness of breath; I51.7 Cardiomegaly; R91.1 Solitary pulmonary nodule
CPT/HCPCS: 71250

== ENCOUNTER 2022-01-27 08:30 | Outpatient (RCR) | payer MEDICARE, OTHER, SELFPAY | END 2022-01-27 10:30 | LOC: PUL 08:30 | PROVIDERS: Family Provider Family Medicine; PCP Family Medicine; Referring Provider Family Medicine; Visit Provider Family Medicine | DX: J44.9 Chronic obstructive pulmonary disease, unspecified (principal) | CPT/HCPCS: 94625; 94626 ==

== ENCOUNTER 2022-01-28 12:29 | Emergency (ER) | payer MEDICARE, OTHER, SELFPAY ==
[2022-01-28] VITALS (10 sets, daily range): BP systolic 114–147; BP diastolic 58–68; PULSE 70–72; RESP 18; TEMP 36.6; O2SAT 94–100; BMI 25.7
--- NOTE | 2022-01-28 12:48 | DI.CT.S_ITS ---
PROCEDURE: CT HEAD/BRAIN WO CON INDICATIONS: fall hit head on coumadin TECHNIQUE: Noncontrast 4.5 mm thick angled axial sections acquired from the foramen magnum to the vertex, with coronal and sagittal reformats. For radiation dose reduction, the following was used: automated exposure control, adjustment of mA and/or kV according to patient size. COMPARISON: [facility], CT, HEAD WITHOUT CONTRAST, 04/07/2017, 16:08. FINDINGS: Image quality: Excellent. CSF spaces: Basal cisterns are patent. No extra-axial fluid collections. The ventricles are symmetric in size and shape. Brain: No intracranial bleeds or masses. There is cerebral volume loss for age, with resultant ventricular and sulcal prominence. There are periventricular and deep white matter chronic small vessel ischemic changes. There is intracranial internal carotid artery atherosclerosis. Skull and face: Calvarium and visualized facial bones appear intact, without suspicious lesions. Right parietal scalp hematoma. Sinuses: Visualized sinuses and mastoids are clear. IMPRESSION: 1. No acute intracranial process. Right parietal scalp hematoma. 2. Moderate atrophy and chronic microvascular ischemic changes. Dictated by: Simi Burrows M.D. on 01/28/2022 at 13:07 Approved by: Simi Burrows M.D. on 01/28/2022 at 13:09
--- NOTE | 2022-01-28 12:48 | DI.RAD.S_ITS ---
PROCEDURE: XR SHOULDER RT MIN 2V INDICATIONS: fall TECHNIQUE: 3 views of the shoulder were acquired. COMPARISON: [facility], CR, XR CHEST 1V, 01/28/2022, 12:40. [facility], CR, XR SHOULDER LT MIN 2V, 04/30/2020, 14:18. FINDINGS: Bones: There is a displaced, comminuted humeral head/neck fracture with inferior subluxation at the glenohumeral joint space. Soft tissues: No suspicious soft tissue calcifications. IMPRESSION: Displaced comminuted humeral head/neck fracture. Dictated by: Simi Burrows M.D. on 01/28/2022 at 13:51 Approved by: Simi Burrows M.D. on 01/28/2022 at 13:53
--- NOTE | 2022-01-28 12:48 | DI.RAD.S_ITS ---
PROCEDURE: XR CHEST 1V INDICATIONS: fall TECHNIQUE: One view of the chest was acquired. COMPARISON: [facility], CR, XR CHEST 2V, 03/05/2021, 15:31. FINDINGS: Surgical changes and devices: Pacemaker and sternal wires are present. Lungs and pleura: There is minimal blunting of the costophrenic angles bilaterally. Increased pulmonary vascularity is present. Mediastinum: Mediastinal contours appear normal. Heart size is normal. Bones and chest wall: No suspicious bony lesions. No visualized fractures. Overlying soft tissues appear unremarkable. IMPRESSION: Cardiomegaly with blunting of the costophrenic angles as well as increased vascularity are present suggestive of edema. Dictated by: Simi Burrows M.D. on 01/28/2022 at 13:50 Approved by: Simi Burrows M.D. on 01/28/2022 at 13:51
--- NOTE | 2022-01-28 13:25 | DI.CT.S_ITS ---
PROCEDURE: CT UE RT WO CON INDICATIONS: Right shoulder fracture post fall TECHNIQUE: Noncontrast 1-1.5 mm thick sections acquired from the acromioclavicular joint to the inferior scapula, with coronal and sagittal reformatting. COMPARISON: [facility], CR, XR SHOULDER RT MIN 2V, 01/28/2022, 12:40. FINDINGS: Image quality: Excellent. Bones: Comminuted displaced and impacted fracture of the proximal humeral head and neck is again seen. The dominant humeral shaft fracture is impacted with mild medial displacement measuring up to 1.7 cm at the lateral cortex. Greater tuberosity fracture fragment is posteriorly displaced by up to 0.4 cm. No displaced lesser tuberosity fracture fragment or articular surface fragment. Moderate degenerative changes at the acromioclavicular joint. No glenoid fracture is seen. Soft tissues: Soft tissue edema and hemorrhage are seen surrounding the proximal humeral fracture. Overlying subcutaneous soft tissue edema is present. There is no significant rotator cuff muscle atrophy. Small ganglion cyst is seen projecting superiorly from the acromioclavicular joint. IMPRESSION: Comminuted impacted fracture of the proximal humeral head and neck as described in the body of the report. Dictated by: James Jones M.D. on 01/28/2022 at 14:54 Approved by: James Jones M.D. on 01/28/2022 at 14:59
--- NOTE | 2022-01-28 13:27 | ED.FALL ---
HPI - Fall <Lukasz Simmons PA-C - Last Filed: 01/28/22 15:15> General Chief Complaint: Trauma Stated Complaint: FALL RIGHT ARM INJURY HIT HEAD Time Seen by Provider: 01/28/22 13:03 Source: patient Mode of arrival: Ambulatory History of Present Illness HPI Narrative: Patient is an 86-year-old female who presents to the ED complaining of right shoulder pain. She was walking down a set of stairs missed the last step and subsequently fell forward landing on her left shoulder. She also hit her head during the fall. She denies any loss of consciousness she denies any dizziness or weakness. Her only presenting complaint is right shoulder pain. She has limited range of motion to the right arm. Incident happened approximately 1 hour prior to arrival. Last p.o. intake was breakfast this morning around 8:00 a.m. patient denies any fever nausea vomiting diarrhea chest pain shortness of breath dizziness weakness numbness paresthesia. Related Data Home Medications Medication Instructions Recorded Confirmed cholecalciferol (vitamin D3) 50 2,000 iu PO Q DAY ##0 10/20/11 01/28/22 mcg (2,000 unit) capsule (Vitamin D3) amoxicillin 500 mg capsule 2,000 mg PO ONCE 02/16/20 01/09/22 diltiazem HCl 120 mg 120 mg PO DAILY 11/01/20 01/28/22 capsule,extended release 24 hr furosemide 20 mg tablet 20 mg PO Q OTHER DAY 11/01/20 01/09/22 potassium chloride 10 mEq 10 meq PO .EVERY OTHER DAY 11/01/20 01/28/22 capsule,extended release Previous Rx's Medication Instructions Recorded warfarin 7.5 mg tablet 3.75 mg PO 5XW #90 tabs 11/28/20 warfarin 2.5 mg tablet 5 mg PO 5XW #100 tabs 05/20/21 citalopram 10 mg tablet 10 mg PO DAILY #90 tabs 08/13/21 fluticasone 250 mcg-salmeterol 50 1 inh inhalation BID #60 ea 11/18/21 mcg/dose blistr powdr for inhalation (Wixela Inhub) levothyroxine 50 mcg tablet 50 mcg PO DAILY #90 tabs 11/18/21 (Synthroid) hydrocodone 5 mg-acetaminophen 325 1 tab PO Q4-6H PRN pain #30 tabs 01/28/22 mg tablet Allergies Allergy/AdvReac Type Severity Reaction Status Date / Time No Known Drug Allergies Allergy Verified 01/28/22 12:46 Review of Systems <Lukasz Simmons PA-C - Last Filed: 01/28/22 15:15> Review of Systems ROS Unobtainable: All systems reviewed & are unremarkable except as noted in HPI and below Constitutional Constitutional: Denies chills, Denies fatigue, Denies fever(s), Denies frequent falls, Denies lethargy and Denies weakness Eyes Eyes: Denies change in vision, Denies eye discharge, Denies irritation and Denies loss of vision ENT Ears, Nose, Mouth, and Throat: Denies change in voice, Denies dizziness, Denies neck pain, Denies sore throat and Denies throat swelling Cardiovascular Cardiovascular: Denies chest pain, Denies irregular heart rhythm, Denies lightheadedness, Denies palpitations, Denies dyspnea, Denies dyspnea on exertion and Denies orthopnea Respiratory Respiratory: Denies cough, Denies dyspnea, Denies dyspnea on exertion and Denies wheezing Gastrointestinal Gastrointestinal: Denies abdominal pain, Denies change in bowel habits, Denies diarrhea, Denies nausea and Denies vomiting Genitourinary Genitourinary: Denies hematuria, Denies flank pain, Denies urinary incontinence and Denies urinary urgency Musculoskeletal Musculoskeletal: Denies back pain, Reports deformity, Reports arthralgias, Reports joint swelling, Reports limited range of motion, Denies muscle weakness, Denies neck pain, Denies numbness and Denies tingling Integumentary/Breasts Skin/Breast: Denies pruritus, Denies erythema, Denies rash and Denies wounds Neurologic Neurologic: Denies behavioral changes, Denies confusion, Denies dizziness, Denies frequent falls, Denies loss of vision, Denies numbness, Denies tingling and Denies weakness Psychiatric Psychiatric: Denies anxiety, Denies behavioral changes, Denies confusion, Denies depression, Denies homicidal ideation and Denies suicidal ideation Endocrine Endocrine: Denies fatigue, Denies flushing and Denies palpitations Hematologic/Lymphatic Hematologic/Lymphatic: Denies easy bruising Allergic/Immunologic Allergic/Immunologic: Denies urticaria, Denies throat swelling and Denies wheezing Patient History <Lukasz Simmons PA-C - Last Filed: 01/28/22 15:15> Medical History Aortic valve stenosis (11/09/13) Foot deformities, congenital Hyperlipidemia Osteoporosis (~1989) Urinary incontinence Surgical History History of aortic valve replacement with bioprosthetic valve (2015) History of carpal tunnel release History of tonsillectomy Normal colonoscopy (2005) Personal history of tricuspid valve disease Family History Brother Hyperlipidemia Hypertension Sister Age: 74 Ovarian cancer Father No problems noted. Mother No problems noted. Other Breast cancer CAD (coronary artery disease) Colorectal cancer Diabetes mellitus Social History marital status: number of children: 3 household members: none lives independently: Yes occupational status: other Smoking Status: Never smoker alcohol intake: current Smoking Status: Never smoker alcohol intake frequency: holidays/special occasions only Substance Use Type: does not use Exam <Lukasz Simmons PA-C - Last Filed: 01/28/22 15:15> Initial Vital Signs Initial Vital Signs: Vital Signs Temperature 98 F 01/28/22 12:44 Pulse Rate 71 01/28/22 12:44 Respiratory Rate 18 01/28/22 12:44 Blood Pressure 114/58 L 01/28/22 12:44 Pulse Oximetry 98 01/28/22 12:44 Oxygen Delivery Method 01/28/22 12:44 Const General: cooperative, healthy appearing and comfortable Nutritional Appearance: average body habitus Orientation: Orientation [facility] Head: normal to inspection, normocephalic and atraumatic Ears: hearing grossly normal bilaterally and external ears normal Nose: external nose normal and nares normal Face and sinus: normal facial exam and sinuses nontender Mouth: oral mucosae normal and lip normal Teeth and gingiva: dentition normal Throat: posterior oropharynx normal Eyes Pupils: PERRL Resp Effort & Inspection: normal respiratory effort and able to speak in complete sentences Auscultation: clear to auscultation bilaterally Cardio Rate: regular rate Rhythm: regular rhythm Heart Sounds: S1 normal and S2 normal GI Inspection: normal to inspection Palpation: soft and no hepatosplenomegaly Neuro General: patient alert, patient awake, patient oriented x3 and CN's II-XI intact bilaterally Extrem Right upper extremity: shoulder/upper arm Details: tenderness, swelling and abnormal ROM <Pradeep Nelson DO - Last Filed: 01/30/22 10:08> Initial Vital Signs Initial Vital Signs: Vital Signs Temperature 98 F 01/28/22 12:44 Pulse Rate 71 01/28/22 12:44 Respiratory Rate 18 01/28/22 12:44 Blood Pressure 114/58 L 01/28/22 12:44 Pulse Oximetry 98 01/28/22 12:44 Oxygen Delivery Method 01/28/22 12:44 Course <Lukasz Simmons PA-C - Last Filed: 01/28/22 15:15> Orders Ordered: Discontinued Medications Acetaminophen (Acetaminophen 325 Mg Tablet) 650 mg PO NOW ONE Stop: 01/28/22 15:07 Last Admin: 01/28/22 15:11 Dose: 650 mg Documented By: JAS Hydrocodone Bitart/Acetaminophen (Hydrocodone/Acet 5/325 Tablet) 1 tab PO NOW ONE Stop: 01/28/22 15:27 Last Admin: 01/28/22 15:34 Dose: 1 tab Documented By: JAS Vital Signs Vital signs: Vital Signs - 8 hr 01/28/22 12:44 01/28/22 13:56 01/28/22 13:57 Temperature 98 F Pulse Rate 71 70 70 Respiratory Rate 18 Blood Pressure 114/58 L Pulse Oximetry 98 94 94 Oxygen Delivery Method Room Air 01/28/22 13:57 01/28/22 13:59 01/28/22 13:59 Temperature Pulse Rate 70 Respiratory Rate Blood Pressure 129/68 129/68 Pulse Oximetry 99 Oxygen Delivery Method 01/28/22 14:00 01/28/22 14:00 Temperature Pulse Rate 70 Respiratory Rate Blood Pressure 131/66 Pulse Oximetry 99 Oxygen Delivery Method <Pradeep Nelson DO - Last Filed: 01/30/22 10:08> Orders Ordered: Discontinued Medications Acetaminophen (Acetaminophen 325 Mg Tablet) 650 mg PO NOW ONE Stop: 01/28/22 15:07 Last Admin: 01/28/22 15:11 Dose: 650 mg Documented By: JAS Hydrocodone Bitart/Acetaminophen (Hydrocodone/Acet 5/325 Tablet) 1 tab PO NOW ONE Stop: 01/28/22 15:27 Last Admin: 01/28/22 15:34 Dose: 1 tab Documented By: JAS Vital Signs Vital signs: Vital Signs - 8 hr 01/28/22 12:44 01/28/22 13:56 01/28/22 13:57 Temperature 98 F Pulse Rate 71 70 70 Respiratory Rate 18 Blood Pressure 114/58 L Pulse Oximetry 98 94 94 Oxygen Delivery Method Room Air 01/28/22 13:57 01/28/22 13:59 01/28/22 13:59 Temperature Pulse Rate 70 Respiratory Rate Blood Pressure 129/68 129/68 Pulse Oximetry 99 Oxygen Delivery Method 01/28/22 14:00 01/28/22 14:00 Temperature Pulse Rate 70 Respiratory Rate Blood Pressure 131/66 Pulse Oximetry 99 Oxygen Delivery Method MDM - Fall <Lukasz Simmons PA-C - Last Filed: 01/28/22 15:15> Differential Diagnosis Differential diagnosis: Likely other Imaging Data Extremity x-ray #1: Radiologist's Impression: [address] [address] [address] Scan Report Signed Patient: Celena Wells MR#: [id number] : 1935 Acct:[id number] Age/Sex: 86 / F Date of Service: 01/28/22 Loc: ED Accession Number: [id number] ?? Procedure: CT UE RT wo con Ordering Provider: Lukasz Simmons P.A-C PROCEDURE:? CT UE RT WO CON ? INDICATIONS:? Right shoulder fracture post fall ? TECHNIQUE:? Noncontrast 1-1.5 mm thick sections acquired from the acromioclavicular joint to the inferior scapula, with coronal and sagittal reformatting.? ? COMPARISON:? [facility], CR, XR SHOULDER RT MIN 2V, 01/28/2022, 12:40. ? FINDINGS:? Image quality:? Excellent.? ? Bones:? Comminuted displaced and impacted fracture of the proximal humeral head and neck is again seen.? The dominant humeral shaft fracture is impacted with mild medial displacement measuring up to 1.7 cm at the lateral cortex.? Greater tuberosity fracture fragment is posteriorly displaced by up to 0.4 cm.? No displaced lesser tuberosity fracture fragment or articular surface fragment.? Moderate degenerative changes at the acromioclavicular joint.? No glenoid fracture is seen. ? Soft tissues:? Soft tissue edema and hemorrhage are seen surrounding the proximal humeral fracture.? Overlying subcutaneous soft tissue edema is present.? There is no significant rotator cuff muscle atrophy.? Small ganglion cyst is seen projecting superiorly from the acromioclavicular joint. ? IMPRESSION:? Comminuted impacted fracture of the proximal humeral head and neck as described in the body of the report. ? ? Dictated by: James Jones M.D. on 01/28/2022 at 14:54 ? ? Approved by: James Jones M.D. on 01/28/2022 at 14:59?? CT scan - head: Radiologist's Impression: [address] [address] [address] Scan Report Signed Patient: Celena Wells MR#: [id number] : 1935 Acct:[id number] Age/Sex: 86 / F Date of Service: 01/28/22 Loc: ED Accession Number: [id number] ?? Procedure: CT head/brain wo con Ordering Provider: Pradeep Nelson D.O. PROCEDURE:? CT HEAD/BRAIN WO CON ? INDICATIONS:? fall hit head on coumadin ? TECHNIQUE:? Noncontrast 4.5 mm thick angled axial sections acquired from the foramen magnum to the vertex, with coronal and sagittal reformats.? For radiation dose reduction, the following was used:? automated exposure control, adjustment of mA and/or kV according to patient size.? ? COMPARISON:? [facility], CT, HEAD WITHOUT CONTRAST, 04/07/2017, 16:08. ? FINDINGS:? Image quality:? Excellent.? ? CSF spaces:? Basal cisterns are patent.? No extra-axial fluid collections.? The ventricles are symmetric in size and shape.? ? Brain:? No intracranial bleeds or masses.? There is cerebral volume loss for age, with resultant ventricular and sulcal prominence.? There are periventricular and deep white matter chronic small vessel ischemic changes.? There is intracranial internal carotid artery atherosclerosis.? ? Skull and face:? Calvarium and visualized facial bones appear intact, without suspicious lesions.? Right parietal scalp hematoma. ? Sinuses:? Visualized sinuses and mastoids are clear.? ? IMPRESSION:? ? 1. No acute intracranial process.? Right parietal scalp hematoma. ? 2. Moderate atrophy and chronic microvascular ischemic changes. ? ? ? Dictated by: Simi Burrows M.D. on 01/28/2022 at 13:07 ? ? Approved by: Simi Burrows M.D. on 01/28/2022 at 13:09?? MDM Narrative Medical decision making narrative: Patient was seen today for a ground level Fall where she sustained a fracture to the right shoulder. CT of the right shoulder was done and orthopedic was contacted [place]. Patient will be placed in a shoulder mobilizer some narcotic pain medications will be sent to her pharmacy and she will follow-up with her orthopedic group tomorrow to schedule appointment. Discharge Plan Departure Patient Disposition: Home Clinical Impression: Fracture of shoulder Qualifiers: Encounter type: initial encounter Fracture type: closed Laterality: right Qualified Code(s): S42.91XA - Fracture of right shoulder girdle, part unspecified, initial encounter for closed fracture Fall Qualifiers: Encounter type: initial encounter Qualified Code(s): W19.XXXA - Unspecified fall, initial encounter Instructions: DI for Shoulder Fracture, How to Prevent Falls Activity Restrictions/Additional Instructions: You were seen today for your fall that he sustained from a walking down the stairs. The x-ray and CT scan of your right shoulder does demonstrate a pretty significant fracture that will likely need an customer retention specialist to repair. A prescription for some narcotic pain medications was sent over to her pharmacy of choice you can hot die picker your earliest convenience would maintain the shoulder mobilizer and if you can sleep upright and support the shoulder with pillows as best you can. He will need to contact the orthopedic group in a.m. to schedule an appointment at her earliest convenience. If you have any issues with pain or difficulty you can return to the ED for further evaluation. Thank you for the opportunity to care for you today. Prescriptions: New hydrocodone-acetaminophen 5-325 mg tablet 1 tab PO Q4-6H PRN (Reason: pain) Qty: 30 0RF No Action fluticasone propion-salmeterol [Wixela Inhub] 250-50 mcg/dose blister with device 1 inh inhalation BID Qty: 60 1RF levothyroxine [Synthroid] 50 mcg tablet 50 mcg PO DAILY Qty: 90 3RF amoxicillin 500 mg capsule 2,000 mg PO ONCE Rx Instructions: TAKE 4 CAPSULES 1 HOUR PRIOR TO DENTAL APPOINTMENT diltiazem HCl 120 mg capsule,extended release 24hr 120 mg PO DAILY Label Comments: 09/18/20 DR. SANTORO furosemide 20 mg tablet 20 mg PO Q OTHER DAY Label Comments: 09/18/20 DR. SANTORO potassium chloride 10 mEq capsule, extended release 10 meq PO .EVERY OTHER DAY Label Comments: 09/18/20 DR. SANTORO cholecalciferol (vitamin D3) [Vitamin D3] 2,000 UNIT capsule 2,000 iu PO Q DAY Qty: 0 warfarin 7.5 mg tablet 3.75 mg PO 5XW Qty: 90 1RF warfarin 2.5 mg tablet 5 mg PO 5XW Qty: 100 3RF citalopram 10 mg tablet 10 mg PO DAILY Qty: 90 2RF Referrals: Jonn Rangel MD [Primary Care Provider] - Adan Ralph MD [Physician] - Visit Report Forms: Patient Portal/API <Pradeep Nelson DO - Last Filed: 01/30/22 10:08> Cosign ED Attending Shreyasature Attestation: I was immediately available in the department for consultation. Documentation has been reviewed. I agree with assessment and plan.
[2022-01-28] MEDS: ACETAMINOPHEN 325 MG TABLET 650 MG PO (15:11)
[2022-01-28] MEDS: HYDROCODONE/ACET 5/325 TABLET 1 TAB PO (15:34)
== END 2022-01-28 15:47 | disposition home or self-care (01) ==
PROVIDERS: Emergency Provider Physician Assistant; Family Provider Family Medicine; PCP Family Medicine
DX: S42.201A Unspecified fracture of upper end of right humerus, initial encounter for closed fracture (principal); S09.90XA Unspecified injury of head, initial encounter; W19.XXXA Unspecified fall, initial encounter
CPT/HCPCS: 70450; 71045; 73030; 73200; 99284

== ENCOUNTER → 2022-02-14 11:20 | Outpatient (CLI) | payer MEDICARE, OTHER, SELFPAY ==
[2022-02-14 13:03] LABS: Thyroid Stimulating Hormone 3.56 uIU/mL (0.47-4.68)
== END ==
PROVIDERS: Family Provider Family Medicine; PCP Family Medicine; Referring Provider Family Medicine; Visit Provider Family Medicine
DX: E06.3 Autoimmune thyroiditis (principal)
CPT/HCPCS: 36415; 84443

== ENCOUNTER 2022-02-17 10:09 | Emergency (ER) | payer MEDICARE, OTHER, SELFPAY ==
[2022-02-17] VITALS (12 sets, daily range): BP systolic 140–187; BP diastolic 65–77; PULSE 69–70; RESP 18; TEMP 36.6; O2SAT 97–100; BMI 26.1
--- NOTE | 2022-02-17 10:50 | ED_ITS ---
HPI - General Adult General Chief complaint: Hypertension Stated complaint: high blood pressure last few days Time Seen by Provider: 02/17/22 10:29 Source: patient Mode of arrival: Ambulatory History of Present Illness HPI narrative: Patient an 86-year-old female who has a history of paroxysmal atrial fibrillation, hypothyroid and recent right humeral. Presents today with elevated blood pressure. She says she takes her blood pressure every day of the last few days it has been 180-190. She decided to come get it checked out today. She has no chest pain or shortness of breath no dizziness no lightheadedness no numbness tingling or weakness. Her right arm is healing keeping and sling. She says her pain is controlled from this. Related Data Home Medications Medication Instructions Recorded Confirmed cholecalciferol (vitamin D3) 50 2,000 iu PO Q DAY ##0 10/20/11 01/28/22 mcg (2,000 unit) capsule (Vitamin D3) amoxicillin 500 mg capsule 2,000 mg PO ONCE 02/16/20 01/09/22 diltiazem HCl 120 mg 120 mg PO DAILY 11/01/20 01/28/22 capsule,extended release 24 hr furosemide 20 mg tablet 20 mg PO Q OTHER DAY 11/01/20 01/09/22 potassium chloride 10 mEq 10 meq PO .EVERY OTHER DAY 11/01/20 01/28/22 capsule,extended release Previous Rx's Medication Instructions Recorded warfarin 7.5 mg tablet 3.75 mg PO 5XW #90 tabs 11/28/20 warfarin 2.5 mg tablet 5 mg PO 5XW #100 tabs 05/20/21 citalopram 10 mg tablet 10 mg PO DAILY #90 tabs 08/13/21 fluticasone 250 mcg-salmeterol 50 1 inh inhalation BID #60 ea 11/18/21 mcg/dose blistr powdr for inhalation (Wixela Inhub) levothyroxine 50 mcg tablet 50 mcg PO DAILY #90 tabs 11/18/21 (Synthroid) hydrocodone 5 mg-acetaminophen 325 1 tab PO Q4-6H PRN pain #30 tabs 01/28/22 mg tablet Allergies Allergy/AdvReac Type Severity Reaction Status Date / Time No Known Drug Allergies Allergy Verified 02/17/22 10:38 Review of Systems Review of Systems Narrative: GENERAL: Denies chills, fatigue, malaise, fever, sweats, travel HEENT: Denies sinus pain, ear pain, sore throat, difficulty swallowing, neck pain RESPIRATORY: Denies dyspnea, cough, wheezing, hemoptysis, sputum. CARDIOVASCULAR: Denies chest pain, palpitations, orthopnea, edema GASTROINTESTINAL: Denies nausea, vomiting, abdominal pain, diarrhea, constipation, melena. : Denies dysuria, frequency, incontinence, hematuria, urinary retention, flank pain. MUSCULOSKELETAL: See HPI SKIN: No rash, no erythema, no pruritus NEUROLOGIC: Denies weakness, dizziness, headache, numbness, change in speech, confusion PSYCHIATRIC: No concerning psychosocial issues. 12 point review of systems is negative except for those stated above and HPI Patient History Medical History Aortic valve stenosis (11/09/13) Foot deformities, congenital Hyperlipidemia Osteoporosis (~1989) Urinary incontinence Surgical History History of aortic valve replacement with bioprosthetic valve (2015) History of carpal tunnel release History of tonsillectomy Normal colonoscopy (2005) Personal history of tricuspid valve disease Family History Brother Hyperlipidemia Hypertension Sister Age: 74 Ovarian cancer Father No problems noted. Mother No problems noted. Other Breast cancer CAD (coronary artery disease) Colorectal cancer Diabetes mellitus Social History marital status: number of children: 3 household members: none lives independently: Yes occupational status: other Smoking Status: Never smoker alcohol intake: current Smoking Status: Never smoker alcohol intake frequency: holidays/special occasions only Substance Use Type: does not use Exam Initial Vital Signs Initial Vital Signs: Vital Signs Temperature 97.8 F 02/17/22 10:14 Pulse Rate 70 02/17/22 10:14 Blood Pressure 187/77 H 02/17/22 10:14 Pulse Oximetry 98 02/17/22 10:14 Oxygen Delivery Method 02/17/22 10:14 GENERAL: Alert pleasant well-appearing 86-year-old female HEENT: Head atraumatic,EOMI, pupils reactive, face symmetric, moist mucous membranes CARDIOVASCULAR: Regular rate and rhythm without murmurs, rubs or gallops. RESPIRATORY: Breath sounds equal bilaterally, no wheezes rales or rhonchi. ABDOMEN: Soft, nontender. Normoactive bowel sounds all 4 quadrants. No guarding or rebound. EXTREMITIES: Normal range of motion, no clubbing or edema. Neurovascularly intact Right arm is in sling good strong distal radial pulse. Swelling of hand but is improving NEUROLOGICAL: Alert and oriented x4.Normal gait and speech. SKIN: Warm, dry, no laceration, no petechiae, no rashes or lesions. Course Orders Ordered: ED Orders 02/17/22 10:29 EKG-12 Lead Stat 02/17/22 11:00 Complete Blood Count AUTO DIFF Stat Comprehensive Metabolic Panel Stat Lipase Stat Troponin & CK Cardiac Panel Stat Vital Signs Vital signs: Vital Signs - 8 hr 02/17/22 10:48 02/17/22 10:49 02/17/22 10:49 Pulse Rate 70 70 Respiratory Rate Blood Pressure 148/67 H Pulse Oximetry 98 98 Oxygen Delivery Method 02/17/22 11:00 02/17/22 11:09 02/17/22 11:09 Pulse Rate 70 70 Respiratory Rate Blood Pressure 140/65 Pulse Oximetry 98 97 Oxygen Delivery Method 02/17/22 11:30 02/17/22 11:30 02/17/22 11:44 Pulse Rate 70 Respiratory Rate Blood Pressure 154/66 H Pulse Oximetry 99 97 Oxygen Delivery Method 02/17/22 11:55 02/17/22 12:00 02/17/22 12:02 Pulse Rate 69 Respiratory Rate Blood Pressure 161/71 H 183/74 H Pulse Oximetry Oxygen Delivery Method 02/17/22 12:15 Pulse Rate 70 Respiratory Rate 18 Blood Pressure 183/74 H Pulse Oximetry 100 Oxygen Delivery Method Room Air Medical Decision Making Lab Data Result diagrams: 02/17/22 11:00 02/17/22 11:00 Labs: Lab Results 02/17/22 02/17/22 Range/Units 11:00 11:00 WBC 6.7 (4.5-11.0) X10^3/uL RBC 3.77 L (4.0-5.2) X10^6/uL Hgb 10.8 L (12.0-16.0) g/dL Hct 33.3 L (36-46) % MCV 88.4 (80-100) fL MCH 28.7 (26-34) PG MCHC 32.5 (30-36) % RDW 14.3 (11.6-14.8) % Plt Count 308 (150-400) X10^3/uL Neut % (Auto) 73.6 (50-75) % Lymph % (Auto) 11.4 L (25-40) % [place] % (Auto) 10.2 (3-14) % Eos % (Auto) 3.7 (2-4) % Baso % (Auto) 1.1 (0-2) % Neut # (Auto) 4900 (9846-2820) /uL Lymph # (Auto) 800 L (5400-9750) /uL [place] # (Auto) 700 (0-900) /uL Eos # (Auto) 200 (0-450) /uL Baso # (Auto) 100 (0-100) /uL Sodium 138 (137-145) mmol/L Potassium 4.6 (3.4-5.1) mmol/L Chloride 103 (98-107) mmol/L Carbon Dioxide 32 (22-32) mmol/L BUN 24 H (7-17) mg/dL Creatinine 1.16 H (0.52-1.04) mg/dL Estimated GFR 46 L (>60) mL/min BUN/Creatinine Ratio 20.7 (6-22) Glucose 87 (80-110) mg/dL Calcium 8.7 (8.4-10.2) mg/dL Total Bilirubin 0.6 (0.2-1.3) mg/dL AST 34 (14-36) IU/L ALT 22 (<35) IU/L Alkaline Phosphatase 95 (38-126) U/L Total Creatine Kinase 121 (30-135) U/L CK-MB (CK-2) 2.99 H (<2.37) ng/mL CK-MB (CK-2) Rel Index 2.5 (1.5-5.0) % Troponin I 0.028 (0.01-0.034) ng/mL Total Protein 7.3 (6.3-8.2) g/dL Albumin 3.8 (3.5-5.0) g/dL Globulin 3.5 (1.7-4.1) g/dL Albumin/Globulin Ratio 1.1 (1.0-2.8) Lipase 105 (23-300) U/L Urine Dip Bedside Urine Glucose Negative Bedside Urine Bilirubin - Negative Bedside Urine Ketone - Negative Urine Specific [place] 1.015 Bedside Urine Occult Blood +/- Bedside Urine pH 6.0 Bedside Urine Protein - Negative Bedside Urine Urobilinogen - Negative Bedside Urine Nitrite - Negative Bedside Urine Leukocytes - Negative Esterase Point of care testing: Urine Dip Bedside Urine Glucose Negative Bedside Urine Bilirubin - Negative Bedside Urine Ketone - Negative Urine Specific [place] 1.015 Bedside Urine Occult Blood +/- Bedside Urine pH 6.0 Bedside Urine Protein - Negative Bedside Urine Urobilinogen - Negative Bedside Urine Nitrite - Negative Bedside Urine Leukocytes - Negative Esterase ECG Data Interpretation: Paced rhythm rate 70 MDM Narrative Medical decision making narrative: Patient overall appears well. Blood is quite variable she may not be related to pain and her arm. She is checking her blood pressure recommend she continue all of her medication and follow up with her primary care provider. Discharge Plan Departure Patient Disposition: Home Clinical Impression: Elevated blood pressure reading Instructions: DI for High Blood Pressure Activity Restrictions/Additional Instructions: *You have been diagnosed with elevated blood pressure *What to do: At this time blood work is overall reassuring. Please continue to check her blood pressure once a day record and talked with her PCP. You may or may not require blood pressure medications. *Continue to take medications as directed *Follow up with your primary care provider in 2-3 days or call [phone] *Return to ER if you should have blood pressure greater than 190/100, chest pain, headache, dizziness, vomiting or any new, worsening or concerning symptoms Prescriptions: No Action fluticasone propion-salmeterol [Wixela Inhub] 250-50 mcg/dose blister with device 1 inh inhalation BID Qty: 60 1RF levothyroxine [Synthroid] 50 mcg tablet 50 mcg PO DAILY Qty: 90 3RF amoxicillin 500 mg capsule 2,000 mg PO ONCE Rx Instructions: TAKE 4 CAPSULES 1 HOUR PRIOR TO DENTAL APPOINTMENT diltiazem HCl 120 mg capsule,extended release 24hr 120 mg PO DAILY Label Comments: 09/18/20 DR. SANTORO furosemide 20 mg tablet 20 mg PO Q OTHER DAY Label Comments: 09/18/20 DR. SANTORO potassium chloride 10 mEq capsule, extended release 10 meq PO .EVERY OTHER DAY Label Comments: 09/18/20 DR. SANTORO cholecalciferol (vitamin D3) [Vitamin D3] 2,000 UNIT capsule 2,000 iu PO Q DAY Qty: 0 warfarin 7.5 mg tablet 3.75 mg PO 5XW Qty: 90 1RF warfarin 2.5 mg tablet 5 mg PO 5XW Qty: 100 3RF citalopram 10 mg tablet 10 mg PO DAILY Qty: 90 2RF hydrocodone-acetaminophen 5-325 mg tablet 1 tab PO Q4-6H PRN (Reason: pain) Qty: 30 0RF Referrals: Jonn Rangel MD [Primary Care Provider] - Visit Report Forms: Patient Portal/API
--- NOTE | 2022-02-17 11:12 | PC.NURSE ---
Pt has asymptomatic hypertension
[2022-02-17 11:14] LABS: Add Manual Diff / Slide Review NO; Basophils Absolute Auto 100 /uL (0-100); Basophils Percent Auto 1.1 % (0-2); Eosinophils Absolute Auto 200 /uL (0-450); Eosinophils Percent Auto 3.7 % (2-4); Hematocrit 33.3 % (36-46); Hemoglobin 10.8 g/dL (12.0-16.0); Lymphocytes Absolute Auto 800 /uL (1100-4500); Lymphocytes Percent Auto 11.4 % (25-40); Mean Corpuscular HGB Conc 32.5 % (30-36); Mean Corpuscular Hemoglobin 28.7 PG (26-34); Mean Corpuscular Volume 88.4 fL (80-100); Monocytes Absolute Auto 700 /uL (0-900); Monocytes Percent Auto 10.2 % (3-14); Neutrophils Absolute Auto 4900 /uL (1500-7000); Neutrophils Percent Auto 73.6 % (50-75); Platelet Count 308 X10^3/uL (150-400); Red Blood Cell Count 3.77 X10^6/uL (4.0-5.2); Red Cell Distribution Width 14.3 % (11.6-14.8); White Blood Cell Count 6.7 X10^3/uL (4.5-11.0)
[2022-02-17 11:23] LABS: Alanine Aminotransferase 22 IU/L (<35); Albumin 3.8 g/dL (3.5-5.0); Albumin Globulin Ratio 1.1 (1.0-2.8); Alkaline Phosphatase 95 U/L (38-126); Aspartate Aminotransferase 34 IU/L (14-36); BUN Creatinine Ratio 20.7 (6-22); Bilirubin Total 0.6 mg/dL (0.2-1.3); Blood Urea Nitrogen 24 mg/dL (7-17); Calcium 8.7 mg/dL (8.4-10.2); Carbon Dioxide 32 mmol/L (22-32); Chloride 103 mmol/L (98-107); Creatine Kinase 121 U/L (30-135); Estimated Glomerular Filt Rate 46 mL/min (>60); Globulin 3.5 g/dL (1.7-4.1); Glucose 87 mg/dL (80-110); HEMOLYSIS < 15 (0-50); Lipase 105 U/L (23-300); Potassium 4.6 mmol/L (3.4-5.1); Sodium 138 mmol/L (137-145); Total Protein 7.3 g/dL (6.3-8.2)
[2022-02-17 11:35] LABS: Troponin I 0.028 ng/mL (0.01-0.034)
[2022-02-17 11:38] LABS: CKMB % Relative Index 2.5 % (1.5-5.0); Creatine Kinase MB 2.99 ng/mL (<2.37)
== END 2022-02-17 12:18 | disposition home or self-care (01) ==
PROVIDERS: Emergency Provider Emergency Medicine; Family Provider Family Medicine; PCP Family Medicine
DX: I10 Essential (primary) hypertension (principal)
CPT/HCPCS: 36415; 80053; 81003; 82550; 82553; 83690; 84484; 85025; 93005; 93010; 99282; 99284

== ENCOUNTER 2022-03-31 18:52 | Emergency (ER) | payer MEDICARE, OTHER, SELFPAY ==
[2022-03-31 18:53] VITALS: BP 125/68; PULSE 69; RESP 16; TEMP 36.4; O2SAT 99; BMI 39.0
--- NOTE | 2022-03-31 19:15 | DI.RAD.S_ITS ---
PROCEDURE: XR CHEST 1V INDICATIONS: Possible stroke TECHNIQUE: One view of the chest was acquired. COMPARISON: [facility], CR, XR SHOULDER 2+ VIEWS RIGHT, 03/31/2022, 13:35. [facility], CT, CT ANGIO HEAD AND NECK, 03/31/2022, 19:23. [facility], CR, XR CHEST 1V, 01/28/2022, 12:40. [facility], CR, XR CHEST 2V, 03/05/2021, 15:31. FINDINGS: Surgical changes and devices: Left pacemaker. Post median sternotomy. TAVR stent. Lungs and pleura: Lungs are clear. No pleural effusions or pneumothorax. Mediastinum: Mediastinal contours appear unchanged. Heart size is within normal limits. Bones and chest wall: No suspicious bony lesions. Right shoulder fracture. Overlying soft tissues appear unremarkable. IMPRESSION: No acute cardiopulmonary abnormality. Right shoulder fracture. Dictated by: Basil Schuster M.D. on 03/31/2022 at 20:06 Approved by: Basil Schuster M.D. on 03/31/2022 at 20:08
--- NOTE | 2022-03-31 19:15 | DI.CT.S_ITS ---
PROCEDURE: CT ANGIO HEAD AND NECK INDICATIONS: Possible stroke TECHNIQUE: After the administration of intravenous contrast, 1 mm thick sections acquired from the aortic arch through the [place] of [place]. Post-contrast 4.5 mm thick sections then re-acquired from the foramen magnum to the vertex. 3-dimensional lkazfky-wsjwndnfb-zbjlrlnzft (MIP) and/or volume rendering reformats were acquired of the central intracranial vasculature and neck separately. For radiation dose reduction, the following was used: automated exposure control, adjustment of mA and/or kV according to patient size. COMPARISON: [facility], CT, CT HEAD/BRAIN WO CON, 01/28/2022, 12:56. [facility], CT, CT HEAD/BRAIN WO CON, 03/31/2022, 19:23. FINDINGS: Image quality: Excellent. BRAIN: CSF spaces: Basal cisterns are patent. No extra-axial fluid collections. There is mild cerebral volume loss, with resultant ventricular and sulcal prominence. Brain: No intracranial hematoma collections, mass, or mass effect. There are subcortical, periventricular and deep white matter hypodensities consistent with mild chronic small vessel ischemic changes. The [place]-white matter junction appears preserved. No abnormal intracranial enhancement. Skull and face: Calvarium and facial bones appear intact, without suspicious lesions. Orbits appear normal. Sinuses: Sinuses and mastoids are clear. HEAD CT ANGIOGRAPHY: Anterior circulation: Intracranial internal carotid arteries are normal in size and appear patent bilaterally. There is mild atherosclerotic calcification along the cavernous segments of the internal carotid arteries. The paired anterior cerebral arteries appear patent bilaterally. The anterior communicating artery also appears patent. The middle cerebral arteries appear patent bilaterally. No high-grade stenosis, occlusion, or filling defects. No cerebral aneurysms identified. Posterior circulation: Visualized portions of the vertebral arteries demonstrate normal caliber, and join to form a patent basilar artery. The posterior cerebral arteries appears patent bilaterally. No high-grade stenosis, occlusion, or filling defects. No cerebral aneurysms identified. NECK CT ANGIOGRAPHY: Carotid system: The great vessels demonstrate a conventional anatomy as they arise from the aortic arch. The origins of the common carotid arteries appear patent. The common carotid arteries appear patent and demonstrates a retropharyngeal course on the right. There is calcified plaque in the carotid bulbs with bilateral narrowing of less than 50%. The internal carotid arteries demonstrate normal calibers and courses. Posterior circulation: The origins of the vertebral arteries both appear patent. The more superior extracranial portions of both vertebral arteries also demonstrate normal courses and calibers. They join to form a patent basilar artery. Soft tissues: Visualized neck soft tissues demonstrate a small hypoattenuating right thyroid nodule measuring up to 0.8 cm. Bones: No suspicious bony lesions. Visualized cervical spine demonstrates multilevel degenerative disc disease and facet arthropathy. IMPRESSION: 1. No high-grade stenosis or occlusion of the central intracranial arteries. 2. No high-grade stenosis or occlusion of the head and neck arteries. There is bilateral mild narrowing of less than 50% in the carotid bulbs. Any quantitative measurements of stenosis were performed using NASCET criteria. Dictated by: Jose Angel Olivarez M.D. on 03/31/2022 at 20:03 Approved by: Jose Angel Olivarez M.D. on 03/31/2022 at 20:09
--- NOTE | 2022-03-31 19:15 | DI.CT.S_ITS ---
PROCEDURE: CT HEAD/BRAIN WO CON INDICATIONS: leaning to the right now resolved TECHNIQUE: Noncontrast 4.5 mm thick angled axial sections acquired from the foramen magnum to the vertex, with coronal and sagittal reformats. For radiation dose reduction, the following was used: automated exposure control, adjustment of mA and/or kV according to patient size. COMPARISON: , CT, CT ANGIO HEAD AND NECK, 03/31/2022, 19:23. , CT, CT HEAD/BRAIN WO CON, 01/28/2022, 12:56. FINDINGS: Image quality: Excellent. CSF spaces: Basal cisterns are patent. No extra-axial fluid collections. There is mild cerebral volume loss, with resultant ventricular and sulcal prominence. Brain: No intracranial hemorrhage, mass, or mass effect. There are subcortical, periventricular and deep white matter hypodensities consistent with mild chronic small vessel ischemic changes. The [place]-white matter junction appears preserved. There is intracranial internal carotid artery atherosclerosis. Skull and face: Calvarium and visualized facial bones appear intact, without suspicious lesions. Sinuses: Visualized sinuses and mastoids are clear. IMPRESSION: 1. No acute intracranial abnormality. 2. Mild chronic white matter small vessel ischemic changes cerebral volume loss. Dictated by: Jose Angel Olivarez M.D. on 03/31/2022 at 20:02 Approved by: Jose Angel lOivarez M.D. on 03/31/2022 at 20:03
--- NOTE | 2022-03-31 19:19 | ED_ITS ---
HPI - Neuro Symptoms/Deficit General Chief Complaint: Neuro Symptoms/Deficit Stated Complaint: Leaning to the right Time Seen by Provider: 03/31/22 19:18 Source: patient and family (granddaughter at bedside) Mode of arrival: Ambulatory Limitations: no limitations History of Present Illness HPI Narrative: This is an 86-year-old female with history of aortic valve replacement, tricuspid valve replacement, pacemaker with prior ablation and cardioversion and atrial fibrillation anticoagulated on warfarin. Patient presents today [place] was [place] when her granddaughter noted she was leaning to the right which became quite pronounced this lasted for about 10 minutes. Patient was able to continue ambulating granddaughter states that patient early recognize it until she pointed out. Patient did not appear confused, no slurred speech, no facial droop, no new weakness of upper or lower extremities. Patient has resolved after about 10 minutes. Patient denies headache, no acute vision changes, no new weakness she is had some persistent weakness of her right upper extremity after having a fracture in January and she is currently out of a sling but performing PT regularly but she did not appreciate any new weakness, no numbness, tingling or other changes of extremities or face. Patient denies chest pain or pressure, no shortness of breath. No nausea or vomiting. No issues with dysuria urgency or frequency or incontinence. No issues with bowel movements. Patient states she is had both her aortic valve replaced as an open heart and tricuspid at the TAVR, pacemaker placement and prior ablation. Denies history of hypertension dyslipidemia or CKD, she does have some hypothyroidism. No tobacco occasional sips of alcohol, none today. No illicit. Her primary care is Dr. Rangel. No known drug allergies. On Anticoagulants: Yes (warfarin) Related Data Home Medications Medication Instructions Recorded Confirmed cholecalciferol (vitamin D3) 50 2,000 iu PO Q DAY ##0 10/20/11 01/28/22 mcg (2,000 unit) capsule (Vitamin D3) amoxicillin 500 mg capsule 2,000 mg PO ONCE 02/16/20 01/09/22 diltiazem HCl 120 mg 120 mg PO DAILY 11/01/20 01/28/22 capsule,extended release 24 hr furosemide 20 mg tablet 20 mg PO Q OTHER DAY 11/01/20 01/09/22 potassium chloride 10 mEq 10 meq PO .EVERY OTHER DAY 11/01/20 01/28/22 capsule,extended release Previous Rx's Medication Instructions Recorded warfarin 7.5 mg tablet 3.75 mg PO 5XW #90 tabs 11/28/20 warfarin 2.5 mg tablet 5 mg PO 5XW #100 tabs 05/20/21 citalopram 10 mg tablet 10 mg PO DAILY #90 tabs 08/13/21 fluticasone 250 mcg-salmeterol 50 1 inh inhalation BID #60 ea 11/18/21 mcg/dose blistr powdr for inhalation (Wixela Inhub) levothyroxine 50 mcg tablet 50 mcg PO DAILY #90 tabs 11/18/21 (Synthroid) hydrocodone 5 mg-acetaminophen 325 1 tab PO Q4-6H PRN pain #30 tabs 01/28/22 mg tablet Allergies Allergy/AdvReac Type Severity Reaction Status Date / Time No Known Drug Allergies Allergy Verified 02/17/22 10:38 Review of Systems Review of Systems ROS Unobtainable: All systems reviewed & are unremarkable except as noted in HPI and below Hematologic/Lymphatic On Anticoagulants: Yes (warfarin) Patient History Medical History Aortic valve stenosis (11/09/13) Foot deformities, congenital Hyperlipidemia Osteoporosis (~1989) Urinary incontinence Surgical History History of aortic valve replacement with bioprosthetic valve (2015) History of carpal tunnel release History of tonsillectomy Normal colonoscopy (2005) Personal history of tricuspid valve disease Family History Brother Hyperlipidemia Hypertension Sister Age: 74 Ovarian cancer Father No problems noted. Mother No problems noted. Other Breast cancer CAD (coronary artery disease) Colorectal cancer Diabetes mellitus Social History marital status: number of children: 3 household members: none lives independently: Yes occupational status: other Smoking Status: Never smoker alcohol intake: current Smoking Status: Never smoker alcohol intake frequency: holidays/special occasions only Substance Use Type: does not use Exam Narrative Exam Narrative: GEN: well nourished, well appearing female, alert and oriented x [default value], patient appears to be in mild distress. HEENT: Atraumatic, pupils are equal round reactive to light, extraocular movements are intact, nares are clear, no facial droop HEART: Regular rate and rhythm without murmur, clicks, rubs. No carotid bruits, pulses are equal in upper and lower extremities LUNGS:Lungs clear to auscultation, no wheezes, rales, crackles, chest moves symmetrically ABD:bowel sounds normal, soft, non-tender, no guarding, rebound, rigidity, no masses noted, no hepatosplenomegaly :No CVA tenderness MSCL: Non-tender, no muscle atrophy, muscles strength 5/5 upper and lower extremities, patient has slightly decreased range of motion at the right shoulder more secondary to pain, her strength and soil expert are equal bilaterally upper extremities, normal gait NEURO:CN 2-12 intact, sensation normal, reflexes 2/4 upper and lower extre mities. finger nose finger test normal, heel kumar test normal SKIN: No rash, no erythema, or other changes. Initial Vital Signs Initial Vital Signs: Vital Signs Temperature 97.6 F 03/31/22 18:53 Pulse Rate 69 03/31/22 18:53 Respiratory Rate 16 03/31/22 18:53 Blood Pressure 125/68 03/31/22 18:53 Pulse Oximetry 99 03/31/22 18:53 Oxygen Delivery Method 03/31/22 18:53 Scores NIH Stroke Scale Level of Conciousness: Alert, keenly responsive Ask month/age: Answers both questions correctly. Open/close eyes, close hand: Performs both tasks correctly Best gaze horizontal: Normal Visual patino: No visual loss Facial palsy: Normal symetrical movement Left arm drift: No drift for full 10 sec Right arm drift: No drift for full 10 sec Left leg drift: No drift for full 5 sec Right leg drift: No drift for full 5 sec Limb ataxia: Absent Sensory on face/arms/legs: Normal, no sensory loss Best language: No aphasia, normal Dysarthria: Normal Extinction or inattention: No abnormality Total NIH Stroke scale score: 0 Course Orders Ordered: ED Orders 03/31/22 19:10 Complete Blood Count AUTO DIFF Stat Comprehensive Metabolic Panel Stat Magnesium Stat Partial Thromboplastin Time Stat Prothrombin Time INR Stat Troponin & CK Cardiac Panel Stat 03/31/22 19:14 EKG-12 Lead Stat 03/31/22 19:15 CT angio head and neck Stat CT head/brain wo con Stat XR chest 1V Stat Vital Signs Vital signs: Vital Signs - 8 hr 03/31/22 18:53 03/31/22 20:36 Temperature 97.6 F Pulse Rate 69 69 Respiratory Rate 16 16 Blood Pressure 125/68 148/65 H Pulse Oximetry 99 99 Oxygen Delivery Method Room Air Room Air MDM - Neuro Symptoms/Deficit Lab Data Result diagrams: 03/31/22 19:10 03/31/22 19:10 Labs: Lab Results 03/31/22 03/31/22 03/31/22 Range/Units 19:10 19:10 19:10 WBC 7.0 (4.5-11.0) X10^3/uL RBC 4.00 (4.0-5.2) X10^6/uL Hgb 11.7 L (12.0-16.0) g/dL Hct 35.0 L (36-46) % MCV 87.5 (80-100) fL MCH 29.3 (26-34) PG MCHC 33.5 (30-36) % RDW 14.0 (11.6-14.8) % Plt Count 174 (150-400) X10^3/uL Neut % (Auto) 65.1 (50-75) % Lymph % (Auto) 16.7 L (25-40) % [place] % (Auto) 10.1 (3-14) % Eos % (Auto) 7.0 H (2-4) % Baso % (Auto) 1.1 (0-2) % Neut # (Auto) 4500 (8213-2784) /uL Lymph # (Auto) 1200 (3324-6521) /uL [place] # (Auto) 700 (0-900) /uL Eos # (Auto) 500 H (0-450) /uL Baso # (Auto) 100 (0-100) /uL PT 26.0 H (10.1-12.7) SECONDS INR 2.2 H (0.9-1.3) APTT 39 H (26-36) SECONDS Sodium 137 (137-145) mmol/L Potassium 4.6 (3.4-5.1) mmol/L Chloride 103 (98-107) mmol/L Carbon Dioxide 26 (22-32) mmol/L BUN 26 H (7-17) mg/dL Creatinine 0.95 (0.52-1.04) mg/dL Estimated GFR 59 L (>60) mL/min BUN/Creatinine Ratio 27.4 H (6-22) Glucose 90 (80-110) mg/dL Calcium 8.9 (8.4-10.2) mg/dL Magnesium 2.2 (1.6-2.3) mg/dL Total Bilirubin 0.5 (0.2-1.3) mg/dL AST 35 (14-36) IU/L ALT 21 (<35) IU/L Alkaline Phosphatase 95 (38-126) U/L Total Creatine Kinase 114 (30-135) U/L CK-MB (CK-2) 1.82 (<2.37) ng/mL CK-MB (CK-2) Rel Index 1.6 (1.5-5.0) % Troponin I 0.024 (0.01-0.034) ng/mL Total Protein 7.2 (6.3-8.2) g/dL Albumin 4.0 (3.5-5.0) g/dL Globulin 3.2 (1.7-4.1) g/dL Albumin/Globulin Ratio 1.3 (1.0-2.8) Imaging Data CT scan - head: Radiologist's Impression: Celena Wells??86??F??1935 ? Allergy/Adv: No Known Drug Allergies (More??) Close Head/Neck CTA (Signed) Jose Angel Olivarez - 03/31/[address] (Signed) Jose Angel Olivarez - 03/31/22 Chest X-Ray (Signed) Basil Schuster - 03/31/[address] (Signed) James Jones - 01/28/22 Shoulder X-Ray (Signed) Simi Burrows - 01/28/[address] (Signed) Simi Burrows - 01/28/22 Chest X-Ray (Signed) Simi Burrows - 01/28/[address] (Signed) Balwinder Bonilla - 01/17/22 Abdomen Ultrasound (Signed) Jerry Wick - 12/25/21 PFT Result 09/20/21 Lumbar Spine X-Ray (Signed) Stas Meek - 09/05/21 Echocardiogram Ultrasound (Signed) Brenda Santoromegha - 06/05/21 Chest X-Ray (Signed) Seng,Scott - 03/05/21 Echocardiogram Ultrasound (Signed) Wild Santoro - 10/22/20 Shoulder X-Ray (Signed) Camron Manrique - 04/30/20 Brain MRI (Signed) Seng,Scott - 02/29/20 Mammogram Screening (Signed) Elsa Lee - 12/01/18 Launch?Image [address] [address] [address] Scan Report Signed Patient: Celena Wells MR#: [id number] : 1935 Acct:[id number] Age/Sex: 86 / F Date of Service: 03/31/22 Loc: ED Accession Number: [id number] ?? Procedure: CT head/brain wo con Ordering Provider: Gabrielle Douglass D.O. PROCEDURE:? CT HEAD/BRAIN WO CON ? INDICATIONS:? leaning to the right now resolved ? TECHNIQUE:? Noncontrast 4.5 mm thick angled axial sections acquired from the foramen magnum to the vertex, with coronal and sagittal reformats.? For radiation dose reduction, the following was used:? automated exposure control, adjustment of mA and/or kV according to patient size.? ? COMPARISON:? [facility], CT, CT ANGIO HEAD AND NECK, 03/31/2022, 19:23.? [facility], CT, CT HEAD/BRAIN WO CON, 01/28/2022, 12:56. ? FINDINGS:? Image quality:? Excellent.? ? CSF spaces:? Basal cisterns are patent.? No extra-axial fluid collections.? There is mild cerebral volume loss, with resultant ventricular and sulcal prominence.? ? Brain:? No intracranial hemorrhage, mass, or mass effect.? There are subcortical, periventricular and deep white matter hypodensities consistent with mild chronic small vessel ischemic changes.? The oviedo-white matter junction appears preserved.? There is intracranial internal carotid artery atherosclerosis.? ? Skull and face:? Calvarium and visualized facial bones appear intact, without suspicious lesions.? ? Sinuses:? Visualized sinuses and mastoids are clear.? ? IMPRESSION:? ? 1. No acute intracranial abnormality. ? 2. Mild chronic white matter small vessel ischemic changes cerebral volume loss.? ? ? Dictated by: Jose Angel Olivarez M.D. on 03/31/2022 at 20:02 ? ? Approved by: Jose Angel Olivarez M.D. on 03/31/2022 at 20:03? CTA - brain/neck: Radiologist's Impression: Close Head/Neck CTA (Signed) Jose Angel Olivarez - 03/31/[address] (Signed) Jose Angel Olivarez - 03/31/22 Chest X-Ray (Signed) Basil Schuster - 03/31/[address] (Signed) James Jones - 01/28/22 Shoulder X-Ray (Signed) Simi Burrows - 01/28/[address] (Signed) Simi Burrows - 01/28/22 Chest X-Ray (Signed) BurrowsSimi pulliam - 01/28/[address] (Signed) Balwinder Bonilla - 01/17/22 Abdomen Ultrasound (Signed) Jerry Wick - 12/25/21 PFT Result 09/20/21 Lumbar Spine X-Ray (Signed) Stas Meek - 09/05/21 Echocardiogram Ultrasound (Signed) Wild Santoro - 06/05/21 Chest X-Ray (Signed) Chan Ellsworth - 03/05/21 Echocardiogram Ultrasound (Signed) Wild Santoro - 10/22/20 Shoulder X-Ray (Signed) Camron Manrique - 04/30/20 Brain MRI (Signed) Chan Ellsworth - 02/29/20 Mammogram Screening (Signed) Elsa Lee - 12/01/18 Launch?[place] [address] CT Scan Report Signed Patient: Celena Wells MR#: [id number] : 1935 Acct:[id number] Age/Sex: 86 / F Date of Service: 03/31/22 Loc: Accession Number: [id number] ?? Procedure: CT angio head and neck Ordering Provider: Gabrielle Douglass D.O. PROCEDURE:? CT ANGIO HEAD AND NECK ? INDICATIONS:? Possible stroke ? TECHNIQUE:? After the administration of intravenous contrast, 1 mm thick sections acquired from the aortic arch through the [place] of [place].? Post-contrast 4.5 mm thick sections then re-acquired from the foramen magnum to the vertex.? 3-dimensional ijemrne-qucswrxxf-jjacegragp (MIP) and/or volume rendering reformats were acquired of the central intracranial vasculature and neck separately. For radiation dose reduction, the following was used:? automated exposure control, adjustment of mA and/or kV according to patient size.? ? COMPARISON:? [facility], CT, CT HEAD/BRAIN WO CON, 01/28/2022, 12:56.? [facility], CT, CT HEAD/BRAIN WO CON, 03/31/2022, 19:23. ? FINDINGS:? Image quality:? Excellent.? ? BRAIN:? CSF spaces:? Basal cisterns are patent.? No extra-axial fluid collections.? There is mild cerebral volume loss, with resultant ventricular and sulcal prominence.? ? Brain:? No intracranial hematoma collections, mass, or mass effect.? There are subcortical, periventricular and deep white matter hypodensities consistent with mild chronic small vessel ischemic changes.? The oviedo-white matter junction appears preserved. ?No abnormal intracranial enhancement. ? Skull and face:? Calvarium and facial bones appear intact, without suspicious lesions.? Orbits appear normal.? ? Sinuses:? Sinuses and mastoids are clear.? ? HEAD CT ANGIOGRAPHY:? Anterior circulation:? Intracranial internal carotid arteries are normal in size and appear patent bilaterally.? There is mild atherosclerotic calcification along the cavernous segments of the internal carotid arteries.? The paired anterior cerebral arteries appear patent bilaterally.? The anterior communicating artery also appears patent. The middle cerebral arteries appear patent bilaterally.? No high-grade stenosis, occlusion, or filling defects.? No cerebral aneurysms identified. ? Posterior circulation:? Visualized portions of the vertebral arteries demonstrate normal caliber, and join to form a patent basilar artery.? The posterior cerebral arteries appears patent bilaterally.? No high-grade stenosis, occlusion, or filling defects.? No cerebral aneurysms identified. ? NECK CT ANGIOGRAPHY:? Carotid system:? The great vessels demonstrate a conventional anatomy as they arise from the aortic arch.? The origins of the common carotid arteries appear patent.? The common carotid arteries appear patent and demonstrates a retropharyngeal course on the right.? There is calcified plaque in the carotid bulbs with bilateral narrowing of less than 50%. ?The internal carotid arteries demonstrate normal calibers and courses.? ? Posterior circulation:? The origins of the vertebral arteries both appear patent.? The more superior extracranial portions of both vertebral arteries also demonstrate normal courses and calibers.? They join to form a patent basilar artery.? ? Soft tissues:? Visualized neck soft tissues demonstrate a small hypoattenuating right thyroid nodule measuring up to 0.8 cm. ? Bones:? No suspicious bony lesions.? Visualized cervical spine demonstrates multilevel degenerative disc disease and facet arthropathy. ? ? IMPRESSION:? ? 1. No high-grade stenosis or occlusion of the central intracranial arteries. ? 2. No high-grade stenosis or occlusion of the head and neck arteries.? There is bilateral mild narrowing of less than 50% in the carotid bulbs.? ? Any quantitative measurements of stenosis were performed using NASCET criteria.? ? ? Dictated by: Jose Angel Olivarez M.D. on 03/31/2022 at 20:03 ? ? Approved by: Jose Angel Olivarez M.D. on 03/31/2022 at 20:09?? ECG Data Attestation: I personally reviewed and interpreted this ECG as follows: Interpretation: Ventricularly paced rhythm, rate of 70 QRS of 156 QTC of 524. Patient has prior 02/17/22 with no change. [facility] Narrative Medical decision making narrative: This is an 86-year-old female with reported history of a leaning to the right it was abrupt on onset lasted 10 minutes and then resolved. Concern for stroke head CT CT angio and workup was initiated. Patient is slightly under anticoagulated with INR of 2.2 with her prior valve history. Her NIH is 0 at t his time she is not currently a tPA candidate secondary to INR as well as resolution of her symptoms. Observation for TIA/CVA workup was offered. Patient very politely declines she understands risks versus benefits this patient will need further workup. She has a cardiology appointment she does not wish to miss tomorrow. She does have primary care follow-up available who can help facilitate workup. Patient and I did discuss risks versus benefits. She has an appointment tomorrow and will see her sample collector she will reach out to her primary care physician she has a pacemaker but states she is had MRIs at [facility] before. Stroke Core Measures Contraindications for TPA in CVA: INR>1.7 Discharge Plan Departure Patient Disposition: Home Clinical Impression: TIA (transient ischemic attack), Right thyroid nodule Instructions: DI for Transient Ischemic Attack Activity Restrictions/Additional Instructions: I suspect that you may have had a TIA today or mini stroke. It is recommended you stay for observation and further workup overnight as discussed I understand you need to be your cardiology appointment tomorrow. Please talk with your sample collector as well as Dr. Rangel your primary care to facilitate further workup which would include echo, MRI of her brain as well as evaluating her other risk factors. Your INR today is 2.2 Please continue your home medications currently as prescribed. Please return for new or worsening symptoms, severe headaches, altered mental status, difficulty with gait or movement, new numbness, tingling or weakness, facial droop or speech issues or other new or concerning symptoms. Prescriptions: No Action fluticasone propion-salmeterol [Wixela Inhub] 250-50 mcg/dose blister with device 1 inh inhalation BID Qty: 60 1RF levothyroxine [Synthroid] 50 mcg tablet 50 mcg PO DAILY Qty: 90 3RF amoxicillin 500 mg capsule 2,000 mg PO ONCE Rx Instructions: TAKE 4 CAPSULES 1 HOUR PRIOR TO DENTAL APPOINTMENT diltiazem HCl 120 mg capsule,extended release 24hr 120 mg PO DAILY Label Comments: 09/18/20 DR. SANTORO furosemide 20 mg tablet 20 mg PO Q OTHER DAY Label Comments: 09/18/20 DR. SANTORO potassium chloride 10 mEq capsule, extended release 10 meq PO .EVERY OTHER DAY Label Comments: 09/18/20 DR. SANTORO cholecalciferol (vitamin D3) [Vitamin D3] 2,000 UNIT capsule 2,000 iu PO Q DAY Qty: 0 warfarin 7.5 mg tablet 3.75 mg PO 5XW Qty: 90 1RF warfarin 2.5 mg tablet 5 mg PO 5XW Qty: 100 3RF citalopram 10 mg tablet 10 mg PO DAILY Qty: 90 2RF hydrocodone-acetaminophen 5-325 mg tablet 1 tab PO Q4-6H PRN (Reason: pain) Qty: 30 0RF Referrals: Jonn Rangel MD [Primary Care Provider] - Visit Report Forms: Patient Portal/API
[2022-03-31 19:28] LABS: INR 2.2 (0.9-1.3)
[2022-03-31 19:30] LABS: Add Manual Diff / Slide Review NO; Basophils Absolute Auto 100 /uL (0-100); Basophils Percent Auto 1.1 % (0-2); Eosinophils Absolute Auto 500 /uL (0-450); Hemoglobin 11.7 g/dL (12.0-16.0); Lymphocytes Absolute Auto 1200 /uL (1100-4500); Lymphocytes Percent Auto 16.7 % (25-40); Mean Corpuscular HGB Conc 33.5 % (30-36); Mean Corpuscular Hemoglobin 29.3 PG (26-34); Mean Corpuscular Volume 87.5 fL (80-100); Monocytes Absolute Auto 700 /uL (0-900); Monocytes Percent Auto 10.1 % (3-14); Neutrophils Absolute Auto 4500 /uL (1500-7000); Neutrophils Percent Auto 65.1 % (50-75); Platelet Count 174 X10^3/uL (150-400)
[2022-03-31 19:31] LABS: PTT Partial Thromboplastin Tim 39 SECONDS (26-36)
[2022-03-31 19:33] LABS: Alanine Aminotransferase 21 IU/L (<35); Albumin Globulin Ratio 1.3 (1.0-2.8); Alkaline Phosphatase 95 U/L (38-126); Aspartate Aminotransferase 35 IU/L (14-36); BUN Creatinine Ratio 27.4 (6-22); Bilirubin Total 0.5 mg/dL (0.2-1.3); Blood Urea Nitrogen 26 mg/dL (7-17); Calcium 8.9 mg/dL (8.4-10.2); Carbon Dioxide 26 mmol/L (22-32); Chloride 103 mmol/L (98-107); Creatine Kinase 114 U/L (30-135); Estimated Glomerular Filt Rate 59 mL/min (>60); Globulin 3.2 g/dL (1.7-4.1); Glucose 90 mg/dL (80-110); HEMOLYSIS < 15 (0-50); Magnesium 2.2 mg/dL (1.6-2.3); Potassium 4.6 mmol/L (3.4-5.1); Sodium 137 mmol/L (137-145); Total Protein 7.2 g/dL (6.3-8.2)
[2022-03-31 19:44] LABS: Troponin I 0.024 ng/mL (0.01-0.034)
[2022-03-31 19:48] LABS: CKMB % Relative Index 1.6 % (1.5-5.0); Creatine Kinase MB 1.82 ng/mL (<2.37)
[2022-03-31 20:36] VITALS: BP 148/65; PULSE 69; RESP 16; O2SAT 99
== END 2022-03-31 20:36 | disposition home or self-care (01) ==
PROVIDERS: Emergency Provider Emergency Medicine; Family Provider Family Medicine; PCP Family Medicine
DX: G45.9 Transient cerebral ischemic attack, unspecified (principal); E04.1 Nontoxic single thyroid nodule; Z79.01 Long term (current) use of anticoagulants; R94.31 Abnormal electrocardiogram [ECG] [EKG]; I48.91 Unspecified atrial fibrillation; Z95.0 Presence of cardiac pacemaker
CPT/HCPCS: 36415; 70450; 70496; 70498; 71045; 80053; 82550; 82553; 83735; 84484; 85025; 85610; 85730; 93005; 93010; 99283; 99284; Q9967

== ENCOUNTER → 2022-07-02 13:04 | Outpatient (CLI) | payer MEDICARE, OTHER, SELFPAY ==
[2022-07-02 13:49] LABS: BUN Creatinine Ratio 33.7 (6-22); Blood Urea Nitrogen 33 mg/dL (7-17); Carbon Dioxide 30 mmol/L (22-32); Chloride 101 mmol/L (98-107); Estimated Glomerular Filt Rate 57 mL/min (>60); Glucose 92 mg/dL (80-110); HEMOLYSIS < 15 (0-50); Potassium 4.6 mmol/L (3.4-5.1); Sodium 139 mmol/L (137-145)
== END ==
PROVIDERS: Family Provider Family Medicine; PCP Family Medicine; Referring Provider Internal Medicine Cardiovascular Disease; Visit Provider Internal Medicine Cardiovascular Disease
DX: I48.21 Permanent atrial fibrillation (principal)
CPT/HCPCS: 36415; 80048

== ENCOUNTER 2022-07-15 13:45 | Outpatient (RCR) | payer MEDICARE, OTHER, SELFPAY ==
--- NOTE | 2022-03-04 16:00 | PT.OPPOC ---
Physical, Occupational & Speech Therapy At [facility] Current Diagnoses Weakness (03/04/22) 4-part fracture of surgical neck of right humerus, subsequent encounter for fracture with routine healing (03/04/22) Visit Care Team Role Provider Type Jonn Rangel MD Family Provider Physician Primary Care Provider Specialty: Family Practice Address: [address] [place] [address], [id number] Email: [email or web address] Walker Lopes MD Attending Provider Physician Referring Provider Specialty: Orthopedics Orthopedic Surgery Address: [address] [place] [address], [address] Email: [email or web address] Plan Of Care PT-OP-T Assessment and Plan Start: 03/04/22 08:38 Freq: Status: Active Protocol: Document 03/04/22 15:15 AW (Rec: 03/05/22 18:02 AW [id number]) Physical Therapy Assessment Rehab Potential Rehabilitation Potential Good Evaluation Complexity Number of Personal Factors/Comorbidities 1-2 Number of Body Systems Impaired 1-2 Clinical Presentation at Evaluation Evolving Impairments Impairments Pain,Posture,ROM,Strength Goals Four Impairment self-care and daily activities Heating And Ventilation Engineer Goal (LTG) QuickDASH score 25% or less ( down from 68%). LTG Duration 06/04/22 Three Impairment strength Short Term Goal (STG) Pt will lift her right arm to 75 degrees elevation in scaption plane STG Duration 04/08/22 Heating And Ventilation Engineer Goal (LTG) Pt will use her right arm to lift and carry 10 pounds so she can carry groceries. LTG Duration 06/04/22 Two Impairment ROM Short Term Goal (STG) PROM right arm improved to 90 degrees in flexion and abduction. STG Duration 04/08/22 Heating And Ventilation Engineer Goal (LTG) AROM right arm improved to within 10 degrees of left arm in flexion and abduction. LTG Duration 06/04/22 One Impairment lacks HEP Short Term Goal (STG) Pt will be instructed in HEP for ROM and strength (when appropriate) to support therapy services provided in clinic STG Duration 04/08/22 Heating And Ventilation Engineer Goal (LTG) Pt will be independent with HEP for right arm ROM and strength to sustain therapy gains. LTG Duration 06/04/22 Assessment Summary Assessment Celena is an independent, community-dwelling 86 yo woman who attends outpatient physical therapy 5 weeks after falling and fracturing her right proximal humerus. She was immobilized in a sling for ~4 weeks but states she now only wears the sling at night or if her arm feels tired during the day. Since she is < 6 weeks post-fracture, measurements taken at this evaluation were minimal and taken with great care. Pt will benefit from a gentle and prolonged progression to improve her right arm range of motion and - eventually - strength to return her to regular activity. Physical Therapy Plan Frequency and Duration Frequency of Treatment 1-2x/week Duration of Treatment 3 months Plan of Care Start Date 03/04/22 Plan of Care End Date 06/04/22 Therapeutic Interventions Therapeutic Interventions Aquatic Therapy,Home Exercise Program,Manual Therapy, Neuromuscular Re-education, Self-Care/Home Management,Soft Tissue Mobilization,Taping, Therapeutic Activities, Therapeutic Exercises Modalities Cold Pack/Ice Massage,Electric Stimulation,Hot Packs Next Visit Focus/Plan Next Note Type Treatment Note Next Visit Plan distal UE ROM and strength, gentle PROM shoulder, self- care Plan of Care Dates Plan of Care Start Date 03/04/22 Plan of Care End Date 06/04/22 Electronically Signed by: Beryl Bello, PT 03/06/22 4222 If you are in agreement with this Plan of Care, please return a signed and dated copy. I have reviewed this Plan of Care and certify that the skilled therapy services above are required to meet the patient?s needs. Physician Signature Date Printed Name and Credentials Clinical Instructor Signature Printed Name and Credentials
--- NOTE | 2022-03-04 16:00 | PT.OIE ---
Current Diagnoses Weakness (03/04/22) 4-part fracture of surgical neck of right humerus, subsequent encounter for fracture with routine healing (03/04/22) Past Medical History (Last Reviewed 02/17/22 @ 11:15 by Steph Ac DO) Aortic valve stenosis (11/09/13) Foot deformities, congenital Hyperlipidemia Osteoporosis (~1989) Urinary incontinence Past Surgical History (Last Reviewed 02/17/22 @ 11:15 by Steph Ac DO) History of aortic valve replacement with bioprosthetic valve (2015) History of carpal tunnel release History of tonsillectomy Normal colonoscopy (2005) Personal history of tricuspid valve disease Visit Care Team Role Provider Type Jonn Rangel MD Family Provider Physician Primary Care Provider Specialty: Family Practice Address: [address] [place] [address], [address] Email: [email or web address] Walker Lopes MD Attending Provider Physician Referring Provider Specialty: Orthopedics Orthopedic Surgery Address: [address] [place] [address], [address] Email: [email or web address] Physical Therapy Initial Evaluation PT-OP-A Visit Information Start: 03/04/22 08:38 Freq: Status: Active Protocol: Document 03/04/22 15:15 AW (Rec: 03/04/22 08:49 AW [id number]) Out-Patient Physical Therapy Visit Information Visit Information Visit Type Initial Evaluation Visit Start Time 14:30 Visit Stop Time 15:15 Total Visit Minutes 45 Visit Number [address]GE Visits 0 Evaluation Information Evaluation Date 03/04/22 Precautions Precautions Per ortho referral: ROM only, no strengthening at this time. 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 She denies any other falls and calls this incident a freak accident. She fell on her right shoulder and hit her head. She was evaluated in the ED. X-ray of the shoulder revealed displaced, comminuted humeral head/neck fracture with inferior subluxation at the glenohumeral joint space. CT of the head revealed right parietal scalp hematoma but was otherwise negative. She left ED in a shoulder sling and followed up with ortho who recommended non-operative treatment. She saw ortho yesterday and doctor was satisfied with healing. Celena is now wearing a shoulder sling only at night for the most part. She was in cardiac rehab but had to stop after this injury. She is right handed. 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 She is sleeping on her back (usually a side sleeper). Granddaughter Kala is assisting at home. Celena is considering [facility] [place] for assist once Kala leaves. Prior Treatments and Tests Prior PT for hip pain Future Testing and Treatments Planned Back to ortho for follow up on 03/31. Treatment Goals Patient/Caregiver Goals Hopes to get back to cardiac rehab. Get her arm working again. Prior Functional Status Baseline Function- ADL's Independent Baseline Function- Mobility Independent Current Functional Impairments (Reported) Functional Limitations- ADL's Needs assist to don compression LE garments. Needs assist for showers with built in seat and suction cup grab bars. Needs assist with washing and drying. Has a bidet attachment on her ADA height toilet. Bed has partial rail. Functional Limitations- Mobility/Gait Using QC for household walking at night. PT-OP-C Subjective Start: 03/04/22 08:38 Freq: Status: Active Protocol: Document 03/04/22 15:15 AW (Rec: 03/05/22 17:50 AW [id number]) OP-PT Subjective Patient Comments Patient Comments I just want to get my arm working again. Patient Questionnaires Quick Dash- Upper Extremity Quick Dash UE Score 68 Quick Dash UE Impairment 60 to 79% Impaired (Score 60- 79) OP-PT Pain Assessment Pain Assessment Grid Paper Pain Assessment Grid Completed Yes: Scanned to EMR PT-OP-F Manual Assessment Start: 03/04/22 08:38 Freq: Status: Active Protocol: Document 03/04/22 15:15 AW (Rec: 03/05/22 17:50 AW [id number]) Manual Assessments Soft Tissue Assessment Soft Tissue Mobility Assessment Left UT, cervical paraspinals, lats, teres, rhomboids all with moderately increased density Joint Mobility Assessment Joint Mobility Assessment Not assessed due to fracture PT-OP-J Posture/Palpation/Skin Start: 03/04/22 08:38 Freq: Status: Active Protocol: Document 03/04/22 15:15 AW (Rec: 03/05/22 17:50 AW [id number]) Posture Evaluation Comments Posture Comments Left humerus sits inferiorly in the glenoid. Pt has moderate dowagers hump and forward head. Skin Assessment Other Assessments Skin Assessment Comments Scattered bruising remains - largely around elbow. PT-OP-K Range of Motion Start: 03/04/22 08:38 Freq: Status: Active Protocol: Document 03/04/22 15:15 AW (Rec: 03/05/22 17:54 AW [id number]) Shoulder Goniometric Range of Motion Shoulder Left Passive Shoulder ROM WFL No Testing Position Supine Flexion 25 Abduction 45 Comments Limited exam with extreme caution. Will plan to re- measure PROM in 1 month PT-OP-Q Treatments Start: 03/04/22 08:38 Freq: Status: Active Protocol: Document 03/04/22 15:15 AW (Rec: 03/05/22 17:56 AW [id number]) Self-Care/Home Management Treatment Education Patient Education Joint Protection,Pain Management,Posture,Safety Other Education Educated pt and caregiver about expected healing timelines, need for continued ROM at elbow, wrist, and hand, and care needed to protect shoulder during healing. Suggested initial plan of care for once weekly until cleared by ortho to begin shoulder ROM and strength. PT-OP-T Assessment and Plan Start: 03/04/22 08:38 Freq: Status: Active Protocol: Document 03/04/22 15:15 AW (Rec: 03/05/22 18:02 AW [id number]) Physical Therapy Assessment Rehab Potential Rehabilitation Potential Good Evaluation Complexity Number of Personal Factors/Comorbidities 1-2 Number of Body Systems Impaired 1-2 Clinical Presentation at Evaluation Evolving Impairments Impairments Pain,Posture,ROM,Strength Goals Four Impairment self-care and daily activities Nursing Home Goal (LTG) QuickDASH score 25% or less ( down from 68%). LTG Duration 06/04/22 Three Impairment strength Short Term Goal (STG) Pt will lift her right arm to 75 degrees elevation in scaption plane STG Duration 04/08/22 Interior Design Assistant Goal (LTG) Pt will use her right arm to lift and carry 10 pounds so she can carry groceries. LTG Duration 06/04/22 Two Impairment ROM Short Term Goal (STG) PROM right arm improved to 90 degrees in flexion and abduction. STG Duration 04/08/22 Interior Design Assistant Goal (LTG) AROM right arm improved to within 10 degrees of left arm in flexion and abduction. LTG Duration 06/04/22 One Impairment lacks HEP Short Term Goal (STG) Pt will be instructed in HEP for ROM and strength (when appropriate) to support therapy services provided in clinic STG Duration 04/08/22 Interior Design Assistant Goal (LTG) Pt will be independent with HEP for right arm ROM and strength to sustain therapy gains. LTG Duration 06/04/22 Assessment Summary Assessment Celena is an independent, community-dwelling 86 yo woman who attends outpatient physical therapy 5 weeks after falling and fracturing her right proximal humerus. She was immobilized in a sling for ~4 weeks but states she now only wears the sling at night or if her arm feels tired during the day. Since she is < 6 weeks post-fracture, measurements taken at this evaluation were minimal and taken with great care. Pt will benefit from a gentle and prolonged progression to improve her right arm range of motion and - eventually - strength to return her to regular activity. Physical Therapy Plan Frequency and Duration Frequency of Treatment 1-2x/week Duration of Treatment 3 months Plan of Care Start Date 03/04/22 Plan of Care End Date 06/04/22 Therapeutic Interventions Therapeutic Interventions Aquatic Therapy,Home Exercise Program,Manual Therapy, Neuromuscular Re-education, Self-Care/Home Management,Soft Tissue Mobilization,Taping, Therapeutic Activities, Therapeutic Exercises Modalities Cold Pack/Ice Massage,Electric Stimulation,Hot Packs Next Visit Focus/Plan Next Note Type Treatment Note Next Visit Plan distal UE ROM and strength, gentle PROM shoulder, self- care
--- NOTE | 2022-03-06 16:43 | PT.OTN ---
Current Diagnoses Weakness (03/06/22) 4-part fracture of surgical neck of right humerus, subsequent encounter for fracture with routine healing (03/06/22) Physical Therapy Treatment Note PT-OP-A Visit Information Start: 03/04/22 08:38 Freq: Status: Active Protocol: Document 03/06/22 13:44 AW (Rec: 03/06/22 16:43 AW [id number]) Out-Patient Physical Therapy Visit Information Visit Information Visit Type Treatment Note Visit Start Time 14:30 Visit Stop Time 15:15 Total Visit Minutes 45 Visit Number 2 Number of NURSING TECHNICIAN Visits 0 Evaluation Information Evaluation Date 03/04/22 Precautions Precautions Per ortho referral: ROM only, no strengthening at this time. PT-OP-B Current Condition Start: 03/04/22 08:38 Freq: Status: Active Protocol: Document 03/04/22 15:15 AW (Rec: 03/04/22 08:49 AW [id number]) Current Condition History of Current Condition Onset Date 01/28/22 Current Complaints right shoulder pain and stiffness after proximal humerus fracture History of Current Condition Celena [place] in [place] when she opened a door and fell down 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 She denies any other falls and calls this incident a freak accident. She fell on her right shoulder and hit her head. She was evaluated in the ED. X-ray of the shoulder revealed displaced, comminuted humeral head/neck fracture with inferior subluxation at the glenohumeral joint space. CT of the head revealed right parietal scalp hematoma but was otherwise negative. She left ED in a shoulder sling and followed up with ortho who recommended non-operative treatment. She saw ortho yesterday and doctor was satisfied with healing. Celena is now wearing a shoulder sling only at night for the most part. She was in cardiac rehab but had to stop after this injury. She is right handed. 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 She is sleeping on her back (usually a side sleeper). Granddaughter Kala is assisting at home. Celena is considering Visiting [place] for assist once Kala leaves. Prior Treatments and Tests Prior PT for hip pain Future Testing and Treatments Planned Back to ortho for follow up on 03/31. Treatment Goals Patient/Caregiver Goals Hopes to get back to cardiac rehab. Get her arm working again. Prior Functional Status Baseline Function- ADL's Independent Baseline Function- Mobility Independent Current Functional Impairments (Reported) Functional Limitations- ADL's Needs assist to don compression LE garments. Needs assist for showers with built in seat and suction cup grab bars. Needs assist with washing and drying. Has a bidet attachment on her ADA height toilet. Bed has partial rail. Functional Limitations- Mobility/Gait Using QC for household walking at night. PT-OP-C Subjective Start: 03/04/22 08:38 Freq: Status: Active Protocol: Document 03/06/22 13:44 AW (Rec: 03/06/22 16:43 AW [id number]) OP-PT Subjective Patient Comments Patient Comments Celena arrives with her granddaughter, Kala, who has been providing assist at home. I have to admit, my arm is pretty sore. PT-OP-F Manual Assessment Start: 03/04/22 08:38 Freq: Status: Active Protocol: Document 03/04/22 15:15 AW (Rec: 03/05/22 17:50 AW [id number]) Manual Assessments Soft Tissue Assessment Soft Tissue Mobility Assessment Left UT, cervical paraspinals, lats, teres, rhomboids all with moderately increased density Joint Mobility Assessment Joint Mobility Assessment Not assessed due to fracture PT-OP-J Posture/Palpation/Skin Start: 03/04/22 08:38 Freq: Status: Active Protocol: Document 03/04/22 15:15 AW (Rec: 03/05/22 17:50 AW [id number]) Posture Evaluation Comments Posture Comments Left humerus sits inferiorly in the glenoid. Pt has moderate dowagers hump and forward head. Skin Assessment Other Assessments Skin Assessment Comments Scattered bruising remains - largely around elbow. PT-OP-K Range of Motion Start: 03/04/22 08:38 Freq: Status: Active Protocol: Document 03/04/22 15:15 AW (Rec: 03/05/22 17:54 AW [id number]) Shoulder Goniometric Range of Motion Shoulder Left Passive Shoulder ROM WFL No Testing Position Supine Flexion 25 Abduction 45 Comments Limited exam with extreme caution. Will plan to re- measure PROM in 1 month PT-OP-Q Treatments Start: 03/04/22 08:38 Freq: Status: Active Protocol: Document 03/06/22 13:44 AW (Rec: 03/06/22 16:43 AW [id number]) Therapeutic Exercises Supine Exercises AROM elbow, wrist, hand Supine Exercise Name AROM elbow, wrist, hand Side right Equipment Used green putty Reps/Minutes flex/ext and pro/sup elbow; flex/ext/circles wrist; fist and pinch w/ putty Comments HEP Manual Therapy Treatment Soft Tissue Mobilization biceps, f/a ext and flexors, UT, pec Body Location biceps, f/a ext and flexors, UT, pec Mobilization Type Rolling,Strumming Intensity/Depth Moderate Body Position Supine Comments Supine with arm supported on pillow Self-Care/Home Management Treatment Education Patient Education Home Exercise Program,Joint Protection,Pain Management, Posture,Safety Other Education Continued education on expected healing timelines and limitations of therapy at this time. Encouraged pt to wear sling to manage arm pain as needed. Issued AROM HEP. PT-OP-T Assessment and Plan Start: 03/04/22 08:38 Freq: Status: Active Protocol: Document 03/06/22 13:44 AW (Rec: 03/06/22 16:43 AW [id number]) Physical Therapy Assessment Rehab Potential Rehabilitation Potential Good Evaluation Complexity Number of Personal Factors/Comorbidities 1-2 Number of Body Systems Impaired 1-2 Clinical Presentation at Evaluation Evolving Impairments Impairments Pain,Posture,ROM,Strength Goals Four Impairment self-care and daily activities Detention Goal (LTG) QuickDASH score 25% or less ( down from 68%). LTG Duration 06/04/22 Three Impairment strength Short Term Goal (STG) Pt will lift her right arm to 75 degrees elevation in scaption plane STG Duration 04/08/22 2 Year Olds Preschool Teacher Goal (LTG) Pt will use her right arm to lift and carry 10 pounds so she can carry groceries. LTG Duration 06/04/22 Two Impairment ROM Short Term Goal (STG) PROM right arm improved to 90 degrees in flexion and abduction. STG Duration 04/08/22 Detention Goal (LTG) AROM right arm improved to within 10 degrees of left arm in flexion and abduction. LTG Duration 06/04/22 One Impairment lacks HEP Short Term Goal (STG) Pt will be instructed in HEP for ROM and strength (when appropriate) to support therapy services provided in clinic STG Duration 04/08/22 Detention Goal (LTG) Pt will be independent with HEP for right arm ROM and strength to sustain therapy gains. LTG Duration 06/04/22 Assessment Summary Assessment Celena tolerated manual therapy for right biceps, UT, pec, and forearm. She has some pain with active elbow flexion in supine and was counseled not to push through pain that raises her pain rating by 2 points or more. She is having particular difficulty with fine motor control. Added putty work to HEP to strengthen research and evaluation analyst and pinch. Physical Therapy Plan Frequency and Duration Frequency of Treatment 1-2x/week Duration of Treatment 3 months Plan of Care Start Date 03/04/22 Plan of Care End Date 06/04/22 Therapeutic Interventions Therapeutic Interventions Aquatic Therapy,Home Exercise Program,Manual Therapy, Neuromuscular Re-education, Self-Care/Home Management,Soft Tissue Mobilization,Taping, Therapeutic Activities, Therapeutic Exercises Modalities Cold Pack/Ice Massage,Electric Stimulation,Hot Packs Next Visit Focus/Plan Next Note Type Treatment Note Next Visit Plan distal UE ROM and strength, gentle PROM shoulder at 6-7 weeks post-fracture, self-care
--- NOTE | 2022-03-10 14:30 | PT.OTN ---
Current Diagnoses Weakness (03/10/22) 4-part fracture of surgical neck of right humerus, subsequent encounter for fracture with routine healing (03/10/22) Physical Therapy Treatment Note PT-OP-A Visit Information Start: 03/04/22 08:38 Freq: Status: Active Protocol: Document 03/10/22 13:50 NBM (Rec: 03/10/22 14:36 NBM [id number]) Out-Patient Physical Therapy Visit Information Visit Information Visit Type Treatment Note Visit Start Time 13:51 Visit Stop Time 14:30 Total Visit Minutes 39 Visit Number 3 Number of WARRANTY ADMINISTRATOR Visits 1 PT-OP-B Current Condition Start: 03/04/22 08:38 Freq: Status: Active Protocol: Document 03/04/22 15:15 AW (Rec: 03/04/22 08:49 AW [id number]) Current Condition History of Current Condition Onset Date 01/28/22 Current Complaints right shoulder pain and stiffness after proximal humerus fracture History of Current Condition 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 She denies any other falls and calls this incident a freak accident. She fell on her right shoulder and hit her head. She was evaluated in the ED. X-ray of the shoulder revealed displaced, comminuted humeral head/neck fracture with inferior subluxation at the glenohumeral joint space. CT of the head revealed right parietal scalp hematoma but was otherwise negative. She left ED in a shoulder sling and followed up with ortho who recommended non-operative treatment. She saw ortho yesterday and doctor was satisfied with healing. Celena is now wearing a shoulder sling only at night for the most part. She was in cardiac rehab but had to stop after this injury. She is right handed. 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 She is sleeping on her back (usually a side sleeper). Granddaughter Kala is assisting at home. Celena is considering Visiting [place] for assist once Kala leaves. Prior Treatments and Tests Prior PT for hip pain Future Testing and Treatments Planned Back to ortho for follow up on 03/31. Treatment Goals Patient/Caregiver Goals Hopes to get back to cardiac rehab. Get her arm working again. Prior Functional Status Baseline Function- ADL's Independent Baseline Function- Mobility Independent Current Functional Impairments (Reported) Functional Limitations- ADL's Needs assist to don compression LE garments. Needs assist for showers with built in seat and suction cup grab bars. Needs assist with washing and drying. Has a bidet attachment on her ADA height toilet. Bed has partial rail. Functional Limitations- Mobility/Gait Using QC for household walking at night. PT-OP-C Subjective Start: 03/04/22 08:38 Freq: Status: Active Protocol: Document 03/10/22 13:50 NBM (Rec: 03/10/22 19:06 NBM [id number]) OP-PT Subjective Patient Comments Patient Comments Celena arrives w/out sling. Granddaughter Kala is present. Pt reports she brings sling to wear as needed and noticed she needed it when she went without for a couple of hours. She thinks her exercises are helping and her pain is tolerable, but she gets swelling in arm sometimes. She forgot about icing so hasn't been doing it. PT-OP-F Manual Assessment Start: 03/04/22 08:38 Freq: Status: Active Protocol: Document 03/04/22 15:15 AW (Rec: 03/05/22 17:50 AW [id number]) Manual Assessments Soft Tissue Assessment Soft Tissue Mobility Assessment Left UT, cervical paraspinals, lats, teres, rhomboids all with moderately increased density Joint Mobility Assessment Joint Mobility Assessment Not assessed due to fracture PT-OP-J Posture/Palpation/Skin Start: 03/04/22 08:38 Freq: Status: Active Protocol: Document 03/04/22 15:15 AW (Rec: 03/05/22 17:50 AW [id number]) Posture Evaluation Comments Posture Comments Left humerus sits inferiorly in the glenoid. Pt has moderate dowagers hump and forward head. Skin Assessment Other Assessments Skin Assessment Comments Scattered bruising remains - largely around elbow. PT-OP-K Range of Motion Start: 03/04/22 08:38 Freq: Status: Active Protocol: Document 03/04/22 15:15 AW (Rec: 03/05/22 17:54 AW [id number]) Shoulder Goniometric Range of Motion Shoulder Left Passive Shoulder ROM WFL No Testing Position Supine Flexion 25 Abduction 45 Comments Limited exam with extreme caution. Will plan to re- measure PROM in 1 month PT-OP-Q Treatments Start: 03/04/22 08:38 Freq: Status: Active Protocol: Document 03/10/22 13:50 NBM (Rec: 03/10/22 14:36 [facility] [id number]) Therapeutic Exercises Supine Exercises AROM elbow, wrist, hand Supine Exercise Name AROM elbow, wrist Side right Reps/Minutes flex/ext and pro/sup elbow Comments HEP review, vc to supinate w/ elbow flex/ext Sitting Exercises Shoulder rolls Sitting Exercise Name Fwd/Bwd Side bilateral Reps/Minutes 1' Comments vc to avoid shrug initially AROM elbow, wrist, hand Sitting Exercise Name AROM elbow, wrist, hand Side right Equipment Used green putty Reps/Minutes flex/ext and pro/sup elbow; flex/ext/circles wrist; fist and pinch w/ putty Comments HEP review Manual Therapy Treatment Soft Tissue Mobilization biceps, f/a ext and flexors, UT, pec Body Location biceps, f/a ext and flexors, UT, pec Mobilization Type Rolling,Strumming Intensity/Depth Moderate Body Position Supine Comments Supine with arm supported on pillow PT-OP-R Modalities Start: 03/04/22 08:38 Freq: Status: Active Protocol: Document 03/10/22 13:50 NBM (Rec: 03/10/22 19:06 [facility] [id number]) Hot Pack/Cold Pack Treatment Cold Pack Location R shoulder/pec/bicep Patient Position Hooklying Treatment Duration (minutes) 10 Patient Tolerance Good Comments w/bolster support PT-OP-T Assessment and Plan Start: 03/04/22 08:38 Freq: Status: Active Protocol: Document 03/10/22 13:50 NBM (Rec: 03/10/22 14:36 [facility] [id number]) Physical Therapy Assessment Goals Four Impairment self-care and daily activities Starch Mangle Tender Goal (LTG) QuickDASH score 25% or less ( down from 68%). LTG Duration 06/04/22 Three Impairment strength Short Term Goal (STG) Pt will lift her right arm to 75 degrees elevation in scaption plane STG Duration 04/08/22 Mcfp Goal (LTG) Pt will use her right arm to lift and carry 10 pounds so she can carry groceries. LTG Duration 06/04/22 Two Impairment ROM Short Term Goal (STG) PROM right arm improved to 90 degrees in flexion and abduction. STG Duration 04/08/22 Starch Mangle Tender Goal (LTG) AROM right arm improved to within 10 degrees of left arm in flexion and abduction. LTG Duration 06/04/22 One Impairment lacks HEP Short Term Goal (STG) Pt will be instructed in HEP for ROM and strength (when appropriate) to support therapy services provided in clinic STG Duration 04/08/22 Starch Mangle Tender Goal (LTG) Pt will be independent with HEP for right arm ROM and strength to sustain therapy gains. LTG Duration 06/04/22 Assessment Summary Assessment Treatment focus today on HEP review and manual therapy. Pt requires initial cues for slower eccentric R elbow extension. Pt demonstrates good self-awareness for staying w/in two points of baseline pain rating as directed last visit and tolerates manual therapy to R biceps, pec, UT and forearm. Pt will benefit from continued skilled therapeutic intervention. Physical Therapy Plan Next Visit Focus/Plan Next Note Type Treatment Note Next Visit Plan Provide HO for shoulder rolls for HEP per pt request. POC: distal UE ROM and strength, gentle PROM shoulder at 6-7 weeks post-fracture, self-care
--- NOTE | 2022-03-17 16:54 | PT.OTN ---
Current Diagnoses Weakness (03/17/22) 4-part fracture of surgical neck of right humerus, subsequent encounter for fracture with routine healing (03/17/22) Physical Therapy Treatment Note PT-OP-A Visit Information Start: 03/04/22 08:38 Freq: Status: Active Protocol: Document 03/17/22 13:05 LRN (Rec: 03/17/22 13:51 LRN [id number]) Out-Patient Physical Therapy Visit Information Visit Information Visit Type Treatment Note Visit Start Time 13:05 Visit Stop Time 13:43 Total Visit Minutes 38 Visit Number 4 Evaluation Information Evaluation Date 03/04/22 Precautions Precautions Per ortho referral: ROM only, no strengthening at this time. 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 She denies any other falls and calls this incident a freak accident. She fell on her right shoulder and hit her head. She was evaluated in the ED. X-ray of the shoulder revealed displaced, comminuted humeral head/neck fracture with inferior subluxation at the glenohumeral joint space. CT of the head revealed right parietal scalp hematoma but was otherwise negative. She left ED in a shoulder sling and followed up with ortho who recommended non-operative treatment. She saw ortho yesterday and doctor was satisfied with healing. Celena is now wearing a shoulder sling only at night for the most part. She was in cardiac rehab but had to stop after this injury. She is right handed. 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 She is sleeping on her back (usually a side sleeper). Granddaughter Kala is assisting at home. Celena is considering Visiting [place] for assist once Kala leaves. Prior Treatments and Tests Prior PT for hip pain Future Testing and Treatments Planned Back to ortho for follow up on 03/31. Treatment Goals Patient/Caregiver Goals Hopes to get back to cardiac rehab. Get her arm working again. Prior Functional Status Baseline Function- ADL's Independent Baseline Function- Mobility Independent Current Functional Impairments (Reported) Functional Limitations- ADL's Needs assist to don compression LE garments. Needs assist for showers with built in seat and suction cup grab bars. Needs assist with washing and drying. Has a bidet attachment on her ADA height toilet. Bed has partial rail. Functional Limitations- Mobility/Gait Using QC for household walking at night. PT-OP-C Subjective Start: 03/04/22 08:38 Freq: Status: Active Protocol: Document 03/17/22 13:05 LRN (Rec: 03/17/22 13:51 LRN [id number]) OP-PT Subjective Patient Comments Patient Comments Next MD visit is 03/30/22. Pt states she is not wearing the sling at night and wears it more than 1x/day for comfort. Currently no pain in R shoulder, but feeling discomfort in biceps. States she dangles her arm when out of the sling. PT-OP-F Manual Assessment Start: 03/04/22 08:38 Freq: Status: Active Protocol: Document 03/04/22 15:15 AW (Rec: 03/05/22 17:50 AW [id number]) Manual Assessments Soft Tissue Assessment Soft Tissue Mobility Assessment Left UT, cervical paraspinals, lats, teres, rhomboids all with moderately increased density Joint Mobility Assessment Joint Mobility Assessment Not assessed due to fracture PT-OP-J Posture/Palpation/Skin Start: 03/04/22 08:38 Freq: Status: Active Protocol: Document 03/04/22 15:15 AW (Rec: 03/05/22 17:50 AW [id number]) Posture Evaluation Comments Posture Comments Left humerus sits inferiorly in the glenoid. Pt has moderate dowagers hump and forward head. Skin Assessment Other Assessments Skin Assessment Comments Scattered bruising remains - largely around elbow. PT-OP-K Range of Motion Start: 03/04/22 08:38 Freq: Status: Active Protocol: Document 03/04/22 15:15 AW (Rec: 03/05/22 17:54 AW [id number]) Shoulder Goniometric Range of Motion Shoulder Left Passive Shoulder ROM WFL No Testing Position Supine Flexion 25 Abduction 45 Comments Limited exam with extreme caution. Will plan to re- measure PROM in 1 month PT-OP-Q Treatments Start: 03/04/22 08:38 Freq: Status: Active Protocol: Document 03/17/22 13:05 LRN (Rec: 03/17/22 13:51 LRN [id number]) Therapeutic Exercises Supine Exercises Passive shoulder Flex Side right Reps/Minutes 5x Comments Slow mvmt and assisted shoulder ext on return Passive shoulder ER Side right Reps/Minutes 15x AROM elbow, wrist, hand Supine Exercise Name Active elbow flexion Side right Reps/Minutes 15x 2 Sitting Exercises Hand gripping Sitting Exercise Name Putty squeeze and finger gripping. Equipment Used Green Putty Reps/Minutes 3' Shoulder rolls Sitting Exercise Name Fwd/Bwd Side bilateral Reps/Minutes 15x each Comments vc AROM elbow, wrist, hand Sitting Exercise Name Forearm sup/pron, wrist AROM Reps/Minutes 15x 2 Manual Therapy Treatment Soft Tissue Mobilization biceps, f/a ext and flexors, UT, pec Body Location L Biceps Mobilization Type Strumming Intensity/Depth Superficial Body Position Supine Self-Care/Home Management Treatment Education Patient Education Home Exercise Program Caregiver Education Granddaughter shown and performed assisted PROM of R shoulder ER and flexion with patient without increase in pain. Activities Self-Care/Home Management Activities Issued & reviewed HEP: Shoulder rolls fwd/bkwd & Assisted PROM shoulder ER. Pt choosing to ice at home. PT-OP-R Modalities Start: 03/04/22 08:38 Freq: Status: Active Protocol: Document 03/10/22 13:50 NBM (Rec: 03/10/22 19:06 NBM [id number]) Hot Pack/Cold Pack Treatment Cold Pack Location R shoulder/pec/bicep Patient Position Hooklying Treatment Duration (minutes) 10 Patient Tolerance Good Comments w/bolster support PT-OP-T Assessment and Plan Start: 03/04/22 08:38 Freq: Status: Active Protocol: Document 03/17/22 13:05 LRN (Rec: 03/17/22 13:51 LRN [id number]) Physical Therapy Assessment Goals Four Impairment self-care and daily activities Lens Mold Setter Goal (LTG) QuickDASH score 25% or less ( down from 68%). LTG Duration 06/04/22 Three Impairment strength Short Term Goal (STG) Pt will lift her right arm to 75 degrees elevation in scaption plane STG Duration 04/08/22 Lens Mold Setter Goal (LTG) Pt will use her right arm to lift and carry 10 pounds so she can carry groceries. LTG Duration 06/04/22 Two Impairment ROM Short Term Goal (STG) PROM right arm improved to 90 degrees in flexion and abduction. STG Duration 04/08/22 Usp Goal (LTG) AROM right arm improved to within 10 degrees of left arm in flexion and abduction. LTG Duration 06/04/22 One Impairment lacks HEP Short Term Goal (STG) Pt will be instructed in HEP for ROM and strength (when appropriate) to support therapy services provided in clinic STG Duration 04/08/22 Lens Mold Setter Goal (LTG) Pt will be independent with HEP for right arm ROM and strength to sustain therapy gains. LTG Duration 06/04/22 Assessment Summary Assessment Pt 7 weeks s/p R shoulder fracture. Pt attended without sling. Pt tolerated PROM shoulder flex & ER without an increase in shoulder pain moving very slowly. Her discomfort in her R biceps is possibly from holding her elbow in a flexed guarded position. Granddaugher present throughout therapy and was very attentive. Physical Therapy Plan Frequency and Duration Frequency of Treatment 1-2x/week Duration of Treatment 3 months Plan of Care Start Date 03/04/22 Plan of Care End Date 06/04/22 Next Visit Focus/Plan Next Note Type Treatment Note Next Visit Plan Review HEP of PROM shoulder ER and I/S PROM shoulder flex. POC: distal UE ROM and strength, gentle PROM shoulder at 6-7 weeks post-fracture, self-care
--- NOTE | 2022-03-25 17:55 | PT.OTN ---
Current Diagnoses Weakness (03/25/22) 4-part fracture of surgical neck of right humerus, subsequent encounter for fracture with routine healing (03/25/22) Physical Therapy Treatment Note PT-OP-A Visit Information Start: 03/04/22 08:38 Freq: Status: Active Protocol: Document 03/25/22 15:22 NBM (Rec: 03/25/22 17:55 NB [id number]) Out-Patient Physical Therapy Visit Information Visit Information Visit Type Treatment Note Visit Note Granddaughter Kala present initially and changed mind - decided to wait in waiting room. 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 She denies any other falls and calls this incident a freak accident. She fell on her right shoulder and hit her head. She was evaluated in the ED. X-ray of the shoulder revealed displaced, comminuted humeral head/neck fracture with inferior subluxation at the glenohumeral joint space. CT of the head revealed right parietal scalp hematoma but was otherwise negative. She left ED in a shoulder sling and followed up with ortho who recommended non-operative treatment. She saw ortho yesterday and doctor was satisfied with healing. Celena is now wearing a shoulder sling only at night for the most part. She was in cardiac rehab but had to stop after this injury. She is right handed. 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 She is sleeping on her back (usually a side sleeper). Grandumairughter Kala is assisting at home. Celena is considering Visiting [place] for assist once Kala leaves. Prior Treatments and Tests Prior PT for hip pain Future Testing and Treatments Planned Back to ortho for follow up on 03/31. Treatment Goals Patient/Caregiver Goals Hopes to get back to cardiac rehab. Get her arm working again. Prior Functional Status Baseline Function- ADL's Independent Baseline Function- Mobility Independent Current Functional Impairments (Reported) Functional Limitations- ADL's Needs assist to don compression LE garments. Needs assist for showers with built in seat and suction cup grab bars. Needs assist with washing and drying. Has a bidet attachment on her ADA height toilet. Bed has partial rail. Functional Limitations- Mobility/Gait Using QC for household walking at night. PT-OP-C Subjective Start: 03/04/22 08:38 Freq: Status: Active Protocol: Document 03/25/22 15:22 NBM (Rec: 03/25/22 17:55 NBM [id number]) OP-PT Subjective Patient Comments Patient Comments Pt reports she uses an old sling to keep ice on her shoulder and finds it very helpful. She is able to complete her exercises throughout the day. PT-OP-F Manual Assessment Start: 03/04/22 08:38 Freq: Status: Active Protocol: Document 03/04/22 15:15 AW (Rec: 03/05/22 17:50 AW [id number]) Manual Assessments Soft Tissue Assessment Soft Tissue Mobility Assessment Left UT, cervical paraspinals, lats, teres, rhomboids all with moderately increased density Joint Mobility Assessment Joint Mobility Assessment Not assessed due to fracture PT-OP-J Posture/Palpation/Skin Start: 03/04/22 08:38 Freq: Status: Active Protocol: Document 03/04/22 15:15 AW (Rec: 03/05/22 17:50 AW [id number]) Posture Evaluation Comments Posture Comments Left humerus sits inferiorly in the glenoid. Pt has moderate dowagers hump and forward head. Skin Assessment Other Assessments Skin Assessment Comments Scattered bruising remains - largely around elbow. PT-OP-K Range of Motion Start: 03/04/22 08:38 Freq: Status: Active Protocol: Document 03/04/22 15:15 AW (Rec: 03/05/22 17:54 AW [id number]) Shoulder Goniometric Range of Motion Shoulder Left Passive Shoulder ROM WFL No Testing Position Supine Flexion 25 Abduction 45 Comments Limited exam with extreme caution. Will plan to re- measure PROM in 1 month PT-OP-Q Treatments Start: 03/04/22 08:38 Freq: Status: Active Protocol: Document 03/25/22 15:22 NBM (Rec: 03/25/22 17:55 NBM [id number]) Therapeutic Exercises Supine Exercises Passive shoulder Flex Side right Reps/Minutes 5x Comments Slow mvmt and assisted shoulder ext on return Passive shoulder ER Side right Reps/Minutes 15x AROM elbow, wrist, hand Supine Exercise Name Active elbow flexion Side right Reps/Minutes 15x 2 Sitting Exercises Shoulder rolls Sitting Exercise Name Fwd/Bwd Side bilateral Reps/Minutes 15x each Comments vc AROM elbow, wrist, hand Sitting Exercise Name Forearm sup/pron, wrist AROM Reps/Minutes 15x 2 Comments cued to hold end-range supination briefly Manual Therapy Treatment Soft Tissue Mobilization biceps, f/a ext and flexors, UT, pec Body Location L Biceps Mobilization Type Rolling,Strumming Intensity/Depth Moderate Body Position Hooklying Comments RUE supported on pillow, towel roll under distal humerus PT-OP-R Modalities Start: 03/04/22 08:38 Freq: Status: Active Protocol: Document 03/25/22 15:22 [facility] (Rec: 03/25/22 17:55 [facility] [id number]) Hot Pack/Cold Pack Treatment Cold Pack Location R shoulder/pec/bicep Patient Position Hooklying Treatment Duration (minutes) 10 Patient Tolerance Good Comments w/pillow support and towel roll under RUE PT-OP-T Assessment and Plan Start: 03/04/22 08:38 Freq: Status: Active Protocol: Document 03/25/22 15:22 [facility] (Rec: 03/25/22 17:55 [facility] [id number]) Physical Therapy Assessment Impairments Impairments Pain,Posture,ROM,Strength Goals Four Impairment self-care and daily activities Halfway Goal (LTG) QuickDASH score 25% or less ( down from 68%). LTG Duration 06/04/22 Three Impairment strength Short Term Goal (STG) Pt will lift her right arm to 75 degrees elevation in scaption plane STG Duration 04/08/22 Halfway Goal (LTG) Pt will use her right arm to lift and carry 10 pounds so she can carry groceries. LTG Duration 06/04/22 Two Impairment ROM Short Term Goal (STG) PROM right arm improved to 90 degrees in flexion and abduction. STG Duration 04/08/22 Plc Programmer Goal (LTG) AROM right arm improved to within 10 degrees of left arm in flexion and abduction. LTG Duration 06/04/22 One Impairment lacks HEP Short Term Goal (STG) Pt will be instructed in HEP for ROM and strength (when appropriate) to support therapy services provided in clinic STG Duration 04/08/22 Halfway Goal (LTG) Pt will be independent with HEP for right arm ROM and strength to sustain therapy gains. LTG Duration 06/04/22 Assessment Summary Assessment Pt presents 8 weeks s/p R shoulder fracture without sling. Treatment focus today on HEP review and manual therapy. Pt tolerates gentle PROM shoulder flexion and has more discomfort with PROM shoulder ER. Tone in R biceps muscle improved with manual therapy. Pt will benefit from continued skilled therapeutic intervention. Physical Therapy Plan Next Visit Focus/Plan Next Note Type Treatment Note Next Visit Plan I/S PROM shoulder flex. POC: distal UE ROM and strength, gentle PROM shoulder at 6-7 weeks post-fracture, self-care
--- NOTE | 2022-03-27 17:32 | PT.OTN ---
Current Diagnoses Weakness (03/27/22) 4-part fracture of surgical neck of right humerus, subsequent encounter for fracture with routine healing (03/27/22) Physical Therapy Treatment Note PT-OP-A Visit Information Start: 03/04/22 08:38 Freq: Status: Active Protocol: Document 03/27/22 16:05 [facility] (Rec: 03/27/22 17:30 [facility] [id number]) Out-Patient Physical Therapy Visit Information Visit Information Visit Type Treatment Note Visit Start Time 16:05 Visit Stop Time 17:00 Total Visit Minutes 55 Visit Number 6 Number of DOCK HAND Visits 0 PT-OP-B Current Condition Start: 03/04/22 08:38 Freq: Status: Active Protocol: Document 03/04/22 15:15 AW (Rec: 03/04/22 08:49 AW [id number]) Current Condition History of Current Condition Onset Date 01/28/22 Current Complaints right shoulder pain and stiffness after proximal humerus fracture History of Current Condition 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 She denies any other falls and calls this incident a freak accident. She fell on her right shoulder and hit her head. She was evaluated in the ED. X-ray of the shoulder revealed displaced, comminuted humeral head/neck fracture with inferior subluxation at the glenohumeral joint space. CT of the head revealed right parietal scalp hematoma but was otherwise negative. She left ED in a shoulder sling and followed up with ortho who recommended non-operative treatment. She saw ortho yesterday and doctor was satisfied with healing. Celena is now wearing a shoulder sling only at night for the most part. She was in cardiac rehab but had to stop after this injury. She is right handed. 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 She is sleeping on her back (usually a side sleeper). Granddaughter Kala is assisting at home. Celena is considering Visiting [place] for assist once Kala leaves. Prior Treatments and Tests Prior PT for hip pain Future Testing and Treatments Planned Back to ortho for follow up on 03/31. Treatment Goals Patient/Caregiver Goals Hopes to get back to cardiac rehab. Get her arm working again. Prior Functional Status Baseline Function- ADL's Independent Baseline Function- Mobility Independent Current Functional Impairments (Reported) Functional Limitations- ADL's Needs assist to don compression LE garments. Needs assist for showers with built in seat and suction cup grab bars. Needs assist with washing and drying. Has a bidet attachment on her ADA height toilet. Bed has partial rail. Functional Limitations- Mobility/Gait Using QC for household walking at night. PT-OP-C Subjective Start: 03/04/22 08:38 Freq: Status: Active Protocol: Document 03/27/22 16:05 [facility] (Rec: 03/27/22 17:29 [facility] [id number]) OP-PT Subjective Patient Comments Patient Comments pt notes her elbow flexion is a little better and she can see progress. For the first time this am she was able to put in her hearing aide. Her pain is a low lel uncomfortable PT-OP-F Manual Assessment Start: 03/04/22 08:38 Freq: Status: Active Protocol: Document 03/04/22 15:15 AW (Rec: 03/05/22 17:50 AW [id number]) Manual Assessments Soft Tissue Assessment Soft Tissue Mobility Assessment Left UT, cervical paraspinals, lats, teres, rhomboids all with moderately increased density Joint Mobility Assessment Joint Mobility Assessment Not assessed due to fracture PT-OP-J Posture/Palpation/Skin Start: 03/04/22 08:38 Freq: Status: Active Protocol: Document 03/04/22 15:15 AW (Rec: 03/05/22 17:50 AW [id number]) Posture Evaluation Comments Posture Comments Left humerus sits inferiorly in the glenoid. Pt has moderate dowagers hump and forward head. Skin Assessment Other Assessments Skin Assessment Comments Scattered bruising remains - largely around elbow. PT-OP-K Range of Motion Start: 03/04/22 08:38 Freq: Status: Active Protocol: Document 03/04/22 15:15 AW (Rec: 03/05/22 17:54 AW [id number]) Shoulder Goniometric Range of Motion Shoulder Left Passive Shoulder ROM WFL No Testing Position Supine Flexion 25 Abduction 45 Comments Limited exam with extreme caution. Will plan to re- measure PROM in 1 month PT-OP-Q Treatments Start: 03/04/22 08:38 Freq: Status: Active Protocol: Document 03/27/22 16:05 [facility] (Rec: 03/27/22 17:29 [facility] [id number]) Therapeutic Exercises Supine Exercises AAROM with dowel shoulder ER (windshield wipers) Reps/Minutes x 10 reps Passive shoulder Flex Side right Reps/Minutes 5x Comments Slow mvmt and assisted shoulder ext on return Passive shoulder ER Side right Reps/Minutes 15x AROM elbow, wrist, hand Supine Exercise Name Active elbow flexion Side right Reps/Minutes 15x 2 Sitting Exercises seated shoulder kaylee AAROM flexion Reps/Minutes x 15 reps Shoulder rolls Sitting Exercise Name Fwd/Bwd Side bilateral Reps/Minutes 15x each Comments vc AROM elbow, wrist, hand Sitting Exercise Name Forearm sup/pron, wrist AROM Reps/Minutes 15x 2 Comments cued to hold end-range supination briefly Manual Therapy Treatment Soft Tissue Mobilization biceps, f/a ext and flexors, UT, pec Body Location L Biceps Mobilization Type Rolling,Strumming Intensity/Depth Moderate Body Position Hooklying Comments RUE supported on pillow, towel roll under distal humerus PT-OP-R Modalities Start: 03/04/22 08:38 Freq: Status: Active Protocol: Document 03/27/22 17:29 [facility] (Rec: 03/27/22 17:29 [facility] [id number]) Hot Pack/Cold Pack Treatment Cold Pack Location R shoulder/pec/bicep Patient Position Hooklying Treatment Duration (minutes) 10 Patient Tolerance Good Comments w/pillow support and towel roll under RUE PT-OP-T Assessment and Plan Start: 03/04/22 08:38 Freq: Status: Active Protocol: Document 03/27/22 16:05 [facility] (Rec: 03/27/22 17:29 [facility] [id number]) Physical Therapy Assessment Assessment Summary Assessment Celena is progressing well with PT, she was happy to have been able to put in her hearing aides today. Pt's goal is to return to driving, her granddaughter is here with her for 2 more weeks. I added in seated shoulder AAROM with kaylee and she tolerated this well. Pt to see Physical Therapy Plan Frequency and Duration Frequency of Treatment 1-2x/week Duration of Treatment 3 months Plan of Care Start Date 03/04/22 Plan of Care End Date 06/04/22 Next Visit Focus/Plan Next Note Type Treatment Note Next Visit Plan I/S PROM shoulder flex. POC: distal UE ROM and strength, gentle PROM shoulder at 6-7 weeks post-fracture, self-care
--- NOTE | 2022-04-01 12:46 | PT-OP ANOTE ---
Pt was in ED yesterday for possible TIA. Pt is seeing grinder dresser today and will follow up with PCP Dr Rangel. Advised pt we will need clearance from MD to proceed w/ Physical Therapy at this time. She expressed understanding, and may be late to PT due to cardiology appt. If late and cleared for PT pt agrees to shorter session today.
--- NOTE | 2022-04-08 12:59 | PT.OTN ---
Current Diagnoses Weakness (04/08/22) 4-part fracture of surgical neck of right humerus, subsequent encounter for fracture with routine healing (04/08/22) Physical Therapy Treatment Note PT-OP-A Visit Information Start: 03/04/22 08:38 Freq: Status: Active Protocol: Document 04/08/22 11:30 AMB (Rec: 04/08/22 12:02 AMB [id number]) Out-Patient Physical Therapy Visit Information Visit Information Visit Type Treatment Note Visit Start Time 11:20 Visit Stop Time 12:00 Total Visit Minutes 45 Visit Number 7 PT-OP-B Current Condition Start: 03/04/22 08:38 Freq: Status: Active Protocol: Document 03/04/22 15:15 AW (Rec: 03/04/22 08:49 AW [id number]) Current Condition History of Current Condition Onset Date 01/28/22 Current Complaints right shoulder pain and stiffness after proximal humerus fracture History of Current Condition 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 She denies any other falls and calls this incident a freak accident. She fell on her right shoulder and hit her head. She was evaluated in the ED. X-ray of the shoulder revealed displaced, comminuted humeral head/neck fracture with inferior subluxation at the glenohumeral joint space. CT of the head revealed right parietal scalp hematoma but was otherwise negative. She left ED in a shoulder sling and followed up with ortho who recommended non-operative treatment. She saw ortho yesterday and doctor was satisfied with healing. Celena is now wearing a shoulder sling only at night for the most part. She was in cardiac rehab but had to stop after this injury. She is right handed. 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 She is sleeping on her back (usually a side sleeper). Granddaughter Kala is assisting at home. Celena is considering [facility] [place] for assist once Kala leaves. Prior Treatments and Tests Prior PT for hip pain Future Testing and Treatments Planned Back to ortho for follow up on 03/31. Treatment Goals Patient/Caregiver Goals Hopes to get back to cardiac rehab. Get her arm working again. Prior Functional Status Baseline Function- ADL's Independent Baseline Function- Mobility Independent Current Functional Impairments (Reported) Functional Limitations- ADL's Needs assist to don compression LE garments. Needs assist for showers with built in seat and suction cup grab bars. Needs assist with washing and drying. Has a bidet attachment on her ADA height toilet. Bed has partial rail. Functional Limitations- Mobility/Gait Using QC for household walking at night. PT-OP-C Subjective Start: 03/04/22 08:38 Freq: Status: Active Protocol: Document 04/08/22 11:30 AMB (Rec: 04/08/22 12:02 AMB [id number]) OP-PT Subjective Patient Comments Patient Comments Celena is reporting she can drive, her grandaughnikki is leaving on . gave her the all clear PT-OP-F Manual Assessment Start: 03/04/22 08:38 Freq: Status: Active Protocol: Document 03/04/22 15:15 AW (Rec: 03/05/22 17:50 AW [id number]) Manual Assessments Soft Tissue Assessment Soft Tissue Mobility Assessment Left UT, cervical paraspinals, lats, teres, rhomboids all with moderately increased density Joint Mobility Assessment Joint Mobility Assessment Not assessed due to fracture PT-OP-J Posture/Palpation/Skin Start: 03/04/22 08:38 Freq: Status: Active Protocol: Document 03/04/22 15:15 AW (Rec: 03/05/22 17:50 AW [id number]) Posture Evaluation Comments Posture Comments Left humerus sits inferiorly in the glenoid. Pt has moderate dowagers hump and forward head. Skin Assessment Other Assessments Skin Assessment Comments Scattered bruising remains - largely around elbow. PT-OP-K Range of Motion Start: 03/04/22 08:38 Freq: Status: Active Protocol: Document 03/04/22 15:15 AW (Rec: 03/05/22 17:54 AW [id number]) Shoulder Goniometric Range of Motion Shoulder Left Passive Shoulder ROM WFL No Testing Position Supine Flexion 25 Abduction 45 Comments Limited exam with extreme caution. Will plan to re- measure PROM in 1 month PT-OP-Q Treatments Start: 03/04/22 08:38 Freq: Status: Active Protocol: Document 04/08/22 12:50 AMB (Rec: 04/08/22 12:59 AMB [id number]) Therapeutic Exercises Supine Exercises isometrics Supine Exercise Name IR and extension Reps/Minutes 5x5 Comments IR into belly, extension into table AAROM shoulder Supine Exercise Name flexion Reps/Minutes x10 Comments with dowel AAROM with dowel shoulder ER (windshield wipers) Reps/Minutes x 10 reps Manual Therapy Treatment Soft Tissue Mobilization biceps, f/a ext and flexors, UT, pec Body Location L Biceps Mobilization Type Rolling,Strumming Intensity/Depth Moderate Body Position Hooklying Comments RUE supported on pillow, towel roll under distal humerus PT-OP-R Modalities Start: 03/04/22 08:38 Freq: Status: Active Protocol: Document 03/27/22 17:29 AMH (Rec: 03/27/22 17:29 AMH [id number]) Hot Pack/Cold Pack Treatment Cold Pack Location R shoulder/pec/bicep Patient Position Hooklying Treatment Duration (minutes) 10 Patient Tolerance Good Comments w/pillow support and towel roll under RUE PT-OP-T Assessment and Plan Start: 03/04/22 08:38 Freq: Status: Active Protocol: Document 04/08/22 12:50 AMB (Rec: 04/08/22 12:59 AMB [id number]) Physical Therapy Assessment Goals Four Impairment self-care and daily activities Behavioral Health Rn Goal (LTG) QuickDASH score 25% or less ( down from 68%). LTG Duration 06/04/22 Three Impairment strength Short Term Goal (STG) Pt will lift her right arm to 75 degrees elevation in scaption plane STG Duration 04/08/22 Behavioral Health Rn Goal (LTG) Pt will use her right arm to lift and carry 10 pounds so she can carry groceries. LTG Duration 06/04/22 Two Impairment ROM Short Term Goal (STG) PROM right arm improved to 90 degrees in flexion and abduction. STG Duration 04/08/22 Group Home Goal (LTG) AROM right arm improved to within 10 degrees of left arm in flexion and abduction. LTG Duration 06/04/22 One Impairment lacks HEP Short Term Goal (STG) Pt will be instructed in HEP for ROM and strength (when appropriate) to support therapy services provided in clinic STG Duration 04/08/22 Behavioral Health Rn Goal (LTG) Pt will be independent with HEP for right arm ROM and strength to sustain therapy gains. LTG Duration 06/04/22 Assessment Summary Assessment New referral from ortho states no ROM or strengthening restrictions. Given AAROM for flexion today, AAROM abduction was more uncomfortable, Celena tolerated isometrics well, could increase if tolerating IR and ext well at next visit. Physical Therapy Plan Next Visit Focus/Plan Next Note Type Treatment Note Next Visit Plan I/S PROM shoulder flex. POC: distal UE ROM and strength, gentle PROM shoulder at 6-7 weeks post-fracture, self-care
--- NOTE | 2022-04-10 15:48 | PT.OTN ---
Current Diagnoses Weakness (04/10/22) 4-part fracture of surgical neck of right humerus, subsequent encounter for fracture with routine healing (04/10/22) Physical Therapy Treatment Note PT-OP-A Visit Information Start: 03/04/22 08:38 Freq: Status: Active Protocol: Document 04/10/22 11:17 AMB (Rec: 04/10/22 13:02 AMB [id number]) Out-Patient Physical Therapy Visit Information Visit Information Visit Type Treatment Note Visit Start Time 11:30 Visit Stop Time 12:00 Total Visit Minutes 30 Visit Number 8 PT-OP-B Current Condition Start: 03/04/22 08:38 Freq: Status: Active Protocol: Document 03/04/22 15:15 AW (Rec: 03/04/22 08:49 AW [id number]) Current Condition History of Current Condition Onset Date 01/28/22 Current Complaints right shoulder pain and stiffness after proximal humerus fracture History of Current Condition 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 She denies any other falls and calls this incident a freak accident. She fell on her right shoulder and hit her head. She was evaluated in the ED. X-ray of the shoulder revealed displaced, comminuted humeral head/neck fracture with inferior subluxation at the glenohumeral joint space. CT of the head revealed right parietal scalp hematoma but was otherwise negative. She left ED in a shoulder sling and followed up with ortho who recommended non-operative treatment. She saw ortho yesterday and doctor was satisfied with healing. Celena is now wearing a shoulder sling only at night for the most part. She was in cardiac rehab but had to stop after this injury. She is right handed. 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 She is sleeping on her back (usually a side sleeper). Granddaughter Kala is assisting at home. Celena is considering [facility] [place] for assist once Kala leaves. Prior Treatments and Tests Prior PT for hip pain Future Testing and Treatments Planned Back to ortho for follow up on 03/31. Treatment Goals Patient/Caregiver Goals Hopes to get back to cardiac rehab. Get her arm working again. Prior Functional Status Baseline Function- ADL's Independent Baseline Function- Mobility Independent Current Functional Impairments (Reported) Functional Limitations- ADL's Needs assist to don compression LE garments. Needs assist for showers with built in seat and suction cup grab bars. Needs assist with washing and drying. Has a bidet attachment on her ADA height toilet. Bed has partial rail. Functional Limitations- Mobility/Gait Using QC for household walking at night. PT-OP-C Subjective Start: 03/04/22 08:38 Freq: Status: Active Protocol: Document 04/10/22 11:17 AMB (Rec: 04/10/22 13:02 AMB [id number]) OP-PT Subjective Patient Comments Patient Comments Celena arrives late for her appt, she is driving herself now. PT-OP-F Manual Assessment Start: 03/04/22 08:38 Freq: Status: Active Protocol: Document 03/04/22 15:15 AW (Rec: 03/05/22 17:50 AW [id number]) Manual Assessments Soft Tissue Assessment Soft Tissue Mobility Assessment Left UT, cervical paraspinals, lats, teres, rhomboids all with moderately increased density Joint Mobility Assessment Joint Mobility Assessment Not assessed due to fracture PT-OP-J Posture/Palpation/Skin Start: 03/04/22 08:38 Freq: Status: Active Protocol: Document 03/04/22 15:15 AW (Rec: 03/05/22 17:50 AW [id number]) Posture Evaluation Comments Posture Comments Left humerus sits inferiorly in the glenoid. Pt has moderate dowagers hump and forward head. Skin Assessment Other Assessments Skin Assessment Comments Scattered bruising remains - largely around elbow. PT-OP-K Range of Motion Start: 03/04/22 08:38 Freq: Status: Active Protocol: Document 03/04/22 15:15 AW (Rec: 03/05/22 17:54 AW [id number]) Shoulder Goniometric Range of Motion Shoulder Left Passive Shoulder ROM WFL No Testing Position Supine Flexion 25 Abduction 45 Comments Limited exam with extreme caution. Will plan to re- measure PROM in 1 month PT-OP-Q Treatments Start: 03/04/22 08:38 Freq: Status: Active Protocol: Document 04/10/22 11:17 AMB (Rec: 04/10/22 13:02 AMB [id number]) Therapeutic Exercises Supine Exercises AAROM shoulder Supine Exercise Name flexion Reps/Minutes x10 Comments with dowel Sitting Exercises seated shoulder kaylee AAROM flexion Reps/Minutes x 15 reps Standing Exercises isometrics Standing Exercise Name ER, IR, extension Side left Reps/Minutes 5x5 Comments not pushing into much pain Other Exercises Passive range Reps/Minutes flexion, abduction, IR ER Manual Therapy Treatment Soft Tissue Mobilization biceps, f/a ext and flexors, UT, pec Mobilization Type Rolling,Strumming PT-OP-R Modalities Start: 03/04/22 08:38 Freq: Status: Active Protocol: Document 03/27/22 17:29 AMH (Rec: 03/27/22 17:29 AMH [id number]) Hot Pack/Cold Pack Treatment Cold Pack Location R shoulder/pec/bicep Patient Position Hooklying Treatment Duration (minutes) 10 Patient Tolerance Good Comments w/pillow support and towel roll under RUE PT-OP-T Assessment and Plan Start: 03/04/22 08:38 Freq: Status: Active Protocol: Document 04/10/22 11:17 AMB (Rec: 04/10/22 13:02 AMB [id number]) Physical Therapy Assessment Goals Four Impairment self-care and daily activities Fdc Goal (LTG) QuickDASH score 25% or less ( down from 68%). LTG Duration 06/04/22 Three Impairment strength Short Term Goal (STG) Pt will lift her right arm to 75 degrees elevation in scaption plane STG Duration 04/08/22 Paralegal Secretary Goal (LTG) Pt will use her right arm to lift and carry 10 pounds so she can carry groceries. LTG Duration 06/04/22 Two Impairment ROM Short Term Goal (STG) PROM right arm improved to 90 degrees in flexion and abduction. STG Duration 04/08/22 Fdc Goal (LTG) AROM right arm improved to within 10 degrees of left arm in flexion and abduction. LTG Duration 06/04/22 One Impairment lacks HEP Short Term Goal (STG) Pt will be instructed in HEP for ROM and strength (when appropriate) to support therapy services provided in clinic STG Duration 04/08/22 Fdc Goal (LTG) Pt will be independent with HEP for right arm ROM and strength to sustain therapy gains. LTG Duration 06/04/22 Assessment Summary Assessment Celena is improving in her ROM, but strength continues to be challenged. Physical Therapy Plan Next Visit Focus/Plan Next Note Type Treatment Note Next Visit Plan I/S PROM shoulder flex. POC: distal UE ROM and strength, gentle PROM shoulder at 6-7 weeks post-fracture, self-care
--- NOTE | 2022-04-15 14:34 | PT.OTN ---
Current Diagnoses Weakness (04/15/22) 4-part fracture of surgical neck of right humerus, subsequent encounter for fracture with routine healing (04/15/22) Physical Therapy Treatment Note PT-OP-A Visit Information Start: 03/04/22 08:38 Freq: Status: Active Protocol: Document 04/15/22 13:51 SP (Rec: 04/15/22 14:37 SP [id number]) Out-Patient Physical Therapy Visit Information Visit Information Visit Type Treatment Note Visit Note PN next visit 10th visit. Visit Start Time 13:51 Visit Stop Time 14:34 Total Visit Minutes 43 Visit Number 9 Number of SET UP MECHANIC STAMPING MACHINES Visits 1 Evaluation Information Evaluation Date 03/04/22 Precautions Precautions Per ortho referral: ROM only, no strengthening at this time. PT-OP-B Current Condition Start: 03/04/22 08:38 Freq: Status: Active Protocol: Document 03/04/22 15:15 AW (Rec: 03/04/22 08:49 AW [id number]) Current Condition History of Current Condition Onset Date 01/28/22 Current Complaints right shoulder pain and stiffness after proximal humerus fracture History of Current Condition Celena was touring [place] [employer] in January when she opened a door and fell down 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 She denies any other falls and calls this incident a freak accident. She fell on her right shoulder and hit her head. She was evaluated in the ED. X-ray of the shoulder revealed displaced, comminuted humeral head/neck fracture with inferior subluxation at the glenohumeral joint space. CT of the head revealed right parietal scalp hematoma but was otherwise negative. She left ED in a shoulder sling and followed up with ortho who recommended non-operative treatment. She saw ortho yesterday and doctor was satisfied with healing. Celena is now wearing a shoulder sling only at night for the most part. She was in cardiac rehab but had to stop after this injury. She is right handed. 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 She is sleeping on her back (usually a side sleeper). Granddaughter Kala is assisting at home. Celena is considering Visiting [employer] for assist once Kala leaves. Prior Treatments and Tests Prior PT for hip pain Future Testing and Treatments Planned Back to ortho for follow up on 03/31. Treatment Goals Patient/Caregiver Goals Hopes to get back to cardiac rehab. Get her arm working again. Prior Functional Status Baseline Function- ADL's Independent Baseline Function- Mobility Independent Current Functional Impairments (Reported) Functional Limitations- ADL's Needs assist to don compression LE garments. Needs assist for showers with built in seat and suction cup grab bars. Needs assist with washing and drying. Has a bidet attachment on her ADA height toilet. Bed has partial rail. Functional Limitations- Mobility/Gait Using QC for household walking at night. PT-OP-C Subjective Start: 03/04/22 08:38 Freq: Status: Active Protocol: Document 04/15/22 13:51 SP (Rec: 04/15/22 14:37 SP [id number]) OP-PT Subjective Patient Comments Patient Comments Pt reported felt ok after last tx, feeling making gains. Is sleeping well and uses her L bed rail and rail on step front bed for ease safety in/ out higher bed. Has [place] coming in for now. She can dress self ronnie support hose self. States she washed hair once in while but rinses mostly. R anterior shld sensitive but pleased with ROM and still working in strengthening [facility]. PT-OP-F Manual Assessment Start: 03/04/22 08:38 Freq: Status: Active Protocol: Document 03/04/22 15:15 AW (Rec: 03/05/22 17:50 AW [id number]) Manual Assessments Soft Tissue Assessment Soft Tissue Mobility Assessment Left UT, cervical paraspinals, lats, teres, rhomboids all with moderately increased density Joint Mobility Assessment Joint Mobility Assessment Not assessed due to fracture PT-OP-J Posture/Palpation/Skin Start: 03/04/22 08:38 Freq: Status: Active Protocol: Document 03/04/22 15:15 AW (Rec: 03/05/22 17:50 AW [id number]) Posture Evaluation Comments Posture Comments Left humerus sits inferiorly in the glenoid. Pt has moderate dowagers hump and forward head. Skin Assessment Other Assessments Skin Assessment Comments Scattered bruising remains - largely around elbow. PT-OP-K Range of Motion Start: 03/04/22 08:38 Freq: Status: Active Protocol: Document 03/04/22 15:15 AW (Rec: 03/05/22 17:54 AW [id number]) Shoulder Goniometric Range of Motion Shoulder Left Passive Shoulder ROM WFL No Testing Position Supine Flexion 25 Abduction 45 Comments Limited exam with extreme caution. Will plan to re- measure PROM in 1 month PT-OP-Q Treatments Start: 03/04/22 08:38 Freq: Status: Active Protocol: Document 04/15/22 13:51 SP (Rec: 04/15/22 14:37 SP [id number]) Therapeutic Exercises Supine Exercises AAROM shoulder Supine Exercise Name flexion Resistance 110-112* AAROM self Equipment Used dowel Reps/Minutes x10 Comments cued elbow straight AAROM with dowel shoulder ER (windshield wipers) Supine Exercise Name HEP review Side right Equipment Used dowel Reps/Minutes x 10 reps Comments cued keep elbow at side Passive shoulder Flex Supine Exercise Name 96* FF, 82* ABD Side right Reps/Minutes 5x Comments Slow mvmt and assisted shoulder ext on return Passive shoulder ER Side right Resistance PROM 48 deg, Reps/Minutes 15x Comments slow movement painfree range Sitting Exercises table slide Sitting Exercise Name FF, scaption- added to HEP Side right Resistance AAROM Equipment Used pillow case on arm Reps/Minutes x10 Comments cued trunk alignment forward flexion tolerant range Standing Exercises isometrics Standing Exercise Name ER, IR, extension- HEP reviewed Side left Reps/Minutes 5x5 ( home 10 reps each) Comments manual resist feedback then door frame- better Manual Therapy Treatment Soft Tissue Mobilization biceps, f/a ext and flexors, UT, pec Body Location R bicep, anterior deltoid, UT, Mobilization Type Rolling,Strumming Intensity/Depth Moderate Body Position Hooklying Comments manual and self instruct STMs Joint Mobilizations GH Jt Joint R Direction AP, inferior glide Grade II Body Position Hooklying Comments manual- good feedback response PT-OP-R Modalities Start: 03/04/22 08:38 Freq: Status: Active Protocol: Document 03/27/22 17:29 AMH (Rec: 03/27/22 17:29 AMH [id number]) Hot Pack/Cold Pack Treatment Cold Pack Location R shoulder/pec/bicep Patient Position Hooklying Treatment Duration (minutes) 10 Patient Tolerance Good Comments w/pillow support and towel roll under RUE PT-OP-T Assessment and Plan Start: 03/04/22 08:38 Freq: Status: Active Protocol: Document 04/15/22 13:51 SP (Rec: 04/15/22 14:37 SP [id number]) Physical Therapy Assessment Goals Four Impairment self-care and daily activities Mcfp Goal (LTG) QuickDASH score 25% or less ( down from 68%). 04/15/22: progressing: pt states can put on support hose now, uses bed rail for in/out bed, just rinsing hair for now due to lack ROM and how long takes painful. LTG Duration 06/04/22 Three Impairment strength Short Term Goal (STG) Pt will lift her right arm to 75 degrees elevation in scaption plane STG Duration 04/08/22 Mcfp Goal (LTG) Pt will use her right arm to lift and carry 10 pounds so she can carry groceries. LTG Duration 06/04/22 Two Impairment ROM Short Term Goal (STG) PROM right arm improved to 90 degrees in flexion and abduction. 04/15/22: progressing: PROM R shld FF 96deg, ABD 82 deg. STG Duration 04/08/22 progressing 04/15/22 Reading Aide Goal (LTG) AROM right arm improved to within 10 degrees of left arm in flexion and abduction. LTG Duration 06/04/22 One Impairment lacks HEP Short Term Goal (STG) Pt will be instructed in HEP for ROM and strength (when appropriate) to support therapy services provided in clinic 04/15/22: R shld isometrics IR/ ER/Ext, AAROM wand supine, initiated table slides FF/ scaption/ER today. STG Duration 04/08/22 progressing 04/15/22 Reading Aide Goal (LTG) Pt will be independent with HEP for right arm ROM and strength to sustain therapy gains. 04/15/22: R shld isometrics IR/ ER/Ext, AAROM wand supine, initiated table slides FF/ scaption/ER today. LTG Duration 06/04/22 progressing 04/15/22 Assessment Summary Assessment Pt improved AAROM tolerance self gains with introduction of table slides this tx. She states can don support hose now with time rests. Cued for no trunk recruitment during HEP isometrics, improved post manual resistance then apply to wall with good form. Encouraged use of modalities post tx if needed for soreness , comfort. Physical Therapy Plan Frequency and Duration Frequency of Treatment 1-2x/week Duration of Treatment 3 months Plan of Care Start Date 03/04/22 Plan of Care End Date 06/04/22 Therapeutic Interventions Therapeutic Interventions Aquatic Therapy,Home Exercise Program,Manual Therapy, Neuromuscular Re-education, Self-Care/Home Management,Soft Tissue Mobilization,Taping, Therapeutic Activities, Therapeutic Exercises Modalities Cold Pack/Ice Massage,Electric Stimulation,Hot Packs Next Visit Focus/Plan Next Note Type Treatment Note Next Visit Plan 10th visit (PN). Assess response to table slides added last tx. I/S PROM shoulder flex. POC: distal UE ROM and strength, gentle PROM shoulder at 6-7 weeks post-fracture, self-care
--- NOTE | 2022-04-17 12:08 | PT.OTN ---
Current Diagnoses Weakness (04/17/22) 4-part fracture of surgical neck of right humerus, subsequent encounter for fracture with routine healing (04/17/22) Physical Therapy Treatment Note PT-OP-A Visit Information Start: 03/04/22 08:38 Freq: Status: Active Protocol: Document 04/17/22 11:16 AW (Rec: 04/17/22 12:08 AW [id number]) Out-Patient Physical Therapy Visit Information Visit Information Visit Type Progress Note Visit Start Time 11:15 Visit Stop Time 12:00 Total Visit Minutes 45 Visit Number 10 Number of [employer] Visits 0 Evaluation Information Evaluation Date 03/04/22 Precautions Precautions Ortho referral updated mid- March: no restrictions. 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 She denies any other falls and calls this incident a freak accident. She fell on her right shoulder and hit her head. She was evaluated in the ED. X-ray of the shoulder revealed displaced, comminuted humeral head/neck fracture with inferior subluxation at the glenohumeral joint space. CT of the head revealed right parietal scalp hematoma but was otherwise negative. She left ED in a shoulder sling and followed up with ortho who recommended non-operative treatment. She saw ortho yesterday and doctor was satisfied with healing. Celena is now wearing a shoulder sling only at night for the most part. She was in cardiac rehab but had to stop after this injury. She is right handed. 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 She is sleeping on her back (usually a side sleeper). Granddaughter Kala is assisting at home. Celena is considering Visiting [place] for assist once Kala leaves. Prior Treatments and Tests Prior PT for hip pain Future Testing and Treatments Planned Back to ortho for follow up on 03/31. Treatment Goals Patient/Caregiver Goals Hopes to get back to cardiac rehab. Get her arm working again. Prior Functional Status Baseline Function- ADL's Independent Baseline Function- Mobility Independent Current Functional Impairments (Reported) Functional Limitations- ADL's Needs assist to don compression LE garments. Needs assist for showers with built in seat and suction cup grab bars. Needs assist with washing and drying. Has a bidet attachment on her ADA height toilet. Bed has partial rail. Functional Limitations- Mobility/Gait Using QC for household walking at night. PT-OP-C Subjective Start: 03/04/22 08:38 Freq: Status: Active Protocol: Document 04/17/22 11:16 AW (Rec: 04/17/22 12:08 AW [id number]) OP-PT Subjective Patient Comments Patient Comments I hurt after last session but doing ok now. PT-OP-F Manual Assessment Start: 03/04/22 08:38 Freq: Status: Active Protocol: Document 03/04/22 15:15 AW (Rec: 03/05/22 17:50 AW [id number]) Manual Assessments Soft Tissue Assessment Soft Tissue Mobility Assessment Left UT, cervical paraspinals, lats, teres, rhomboids all with moderately increased density Joint Mobility Assessment Joint Mobility Assessment Not assessed due to fracture PT-OP-J Posture/Palpation/Skin Start: 03/04/22 08:38 Freq: Status: Active Protocol: Document 03/04/22 15:15 AW (Rec: 03/05/22 17:50 AW [id number]) Posture Evaluation Comments Posture Comments Left humerus sits inferiorly in the glenoid. Pt has moderate dowagers hump and forward head. Skin Assessment Other Assessments Skin Assessment Comments Scattered bruising remains - largely around elbow. PT-OP-K Range of Motion Start: 03/04/22 08:38 Freq: Status: Active Protocol: Document 03/04/22 15:15 AW (Rec: 03/05/22 17:54 AW [id number]) Shoulder Goniometric Range of Motion Shoulder Left Passive Shoulder ROM WFL No Testing Position Supine Flexion 25 Abduction 45 Comments Limited exam with extreme caution. Will plan to re- measure PROM in 1 month PT-OP-Q Treatments Start: 03/04/22 08:38 Freq: Status: Active Protocol: Document 04/17/22 11:16 AW (Rec: 04/17/22 12:08 AW [id number]) Therapeutic Exercises Supine Exercises AAROM shoulder Supine Exercise Name flexion Resistance 110-112* AAROM self Equipment Used dowel Reps/Minutes x10 Comments cued elbow straight AAROM with dowel shoulder ER (windshield wipers) Supine Exercise Name HEP review Side right Equipment Used dowel Reps/Minutes x 10 reps Comments cued keep elbow at side Sitting Exercises table slide Sitting Exercise Name FF, scaption- Side right Resistance AAROM Equipment Used pillow case on arm Reps/Minutes x10 Comments scaption feels best no grab Standing Exercises isometrics Standing Exercise Name ER, IR, extension- HEP reviewed Side left Reps/Minutes 5x5 ( home 10 reps each) Comments manual resist feedback then door frame- better Other Exercises Passive range Reps/Minutes flexion, abduction, IR ER Manual Therapy Treatment Soft Tissue Mobilization biceps, f/a ext and flexors, UT, pec Body Location R bicep, anterior deltoid, UT, Mobilization Type Rolling,Strumming Intensity/Depth Moderate Body Position Hooklying Joint Mobilizations GH Jt Joint R Direction AP, inferior glide Grade II Body Position Hooklying Comments manual- good feedback response PT-OP-R Modalities Start: 03/04/22 08:38 Freq: Status: Active Protocol: Document 03/27/22 17:29 AMH (Rec: 03/27/22 17:29 AMH [id number]) Hot Pack/Cold Pack Treatment Cold Pack Location R shoulder/pec/bicep Patient Position Hooklying Treatment Duration (minutes) 10 Patient Tolerance Good Comments w/pillow support and towel roll under RUE PT-OP-T Assessment and Plan Start: 03/04/22 08:38 Freq: Status: Active Protocol: Document 04/17/22 11:16 AW (Rec: 04/17/22 12:08 AW [id number]) Physical Therapy Assessment Goals Four Impairment self-care and daily activities Prison Goal (LTG) QuickDASH score 25% or less ( down from 68%). 04/15/22: progressing: pt states can put on support hose now, uses bed rail for in/out bed, just rinsing hair for now due to lack ROM and how long takes painful. LTG Duration 06/04/22 Three Impairment strength Short Term Goal (STG) Pt will lift her right arm to 75 degrees elevation in scaption plane 04/17/22 - Pt achieves 68 degrees elevation in scaption plane. STG Duration 04/08/22 Neon Molder Goal (LTG) Pt will use her right arm to lift and carry 10 pounds so she can carry groceries. LTG Duration 06/04/22 Two Impairment ROM Short Term Goal (STG) PROM right arm improved to 90 degrees in flexion and abduction. 04/15/22: progressing: PROM R shld FF 96deg, ABD 82 deg. STG Duration 04/08/22 progressing 04/15/22 Prison Goal (LTG) AROM right arm improved to within 10 degrees of left arm in flexion and abduction. LTG Duration 06/04/22 One Impairment lacks HEP Short Term Goal (STG) Pt will be instructed in HEP for ROM and strength (when appropriate) to support therapy services provided in clinic 04/15/22: R shld isometrics IR/ ER/Ext, AAROM wand supine, initiated table slides FF/ scaption/ER today. STG Duration 04/08/22 progressing 04/15/22 Prison Goal (LTG) Pt will be independent with HEP for right arm ROM and strength to sustain therapy gains. 04/15/22: R shld isometrics IR/ ER/Ext, AAROM wand supine, initiated table slides FF/ scaption/ER today. LTG Duration 06/04/22 progressing 04/15/22 Progress Towards Goals Progress Towards Goals Progressing Toward Goals,Slow Progress - Other Progress Comments AROM is improving slowly. Pt is now driving in town and able to dress herself entirely including compression stockings. She continues to need help with most laundry and cleaning which is being taken care of by paid caregivers and neighbors. Assessment Summary Assessment Reviewed table slides for independent performance. Pt tolerates scaption slides best . Progress assessed as above with pt showing modest strength and ROM gains. Physical Therapy Plan Frequency and Duration Frequency of Treatment 1-2x/week Duration of Treatment 3 months Plan of Care Start Date 03/04/22 Plan of Care End Date 06/04/22 Therapeutic Interventions Therapeutic Interventions Aquatic Therapy,Home Exercise Program,Manual Therapy, Neuromuscular Re-education, Self-Care/Home Management,Soft Tissue Mobilization,Taping, Therapeutic Activities, Therapeutic Exercises Modalities Cold Pack/Ice Massage,Electric Stimulation,Hot Packs Next Visit Focus/Plan Next Note Type Treatment Note Next Visit Plan Assess ongoing response to table slides. Consider standing AAROM extension. Continue STM to address R pec and periscapular tone.
--- NOTE | 2022-04-23 14:33 | PT.OTN ---
Current Diagnoses Weakness (04/23/22) 4-part fracture of surgical neck of right humerus, subsequent encounter for fracture with routine healing (04/23/22) Physical Therapy Treatment Note PT-OP-A Visit Information Start: 03/04/22 08:38 Freq: Status: Active Protocol: Document 04/23/22 13:46 AW (Rec: 04/23/22 14:33 AW [id number]) Out-Patient Physical Therapy Visit Information Visit Information Visit Type Treatment Note Visit Start Time 13:50 Visit Stop Time 14:30 Total Visit Minutes 40 Visit Number 11 Number of STAKES [employer]ER Visits 0 Evaluation Information Evaluation Date 03/04/22 Precautions Precautions Ortho referral updated mid- March: no restrictions. 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 She denies any other falls and calls this incident a freak accident. She fell on her right shoulder and hit her head. She was evaluated in the ED. X-ray of the shoulder revealed displaced, comminuted humeral head/neck fracture with inferior subluxation at the glenohumeral joint space. CT of the head revealed right parietal scalp hematoma but was otherwise negative. She left ED in a shoulder sling and followed up with ortho who recommended non-operative treatment. She saw ortho yesterday and doctor was satisfied with healing. Celena is now wearing a shoulder sling only at night for the most part. She was in cardiac rehab but had to stop after this injury. She is right handed. 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 She is sleeping on her back (usually a side sleeper). Granddaughter Kala is assisting at home. Celena is considering Visiting [facility] for assist once Kala leaves. Prior Treatments and Tests Prior PT for hip pain Future Testing and Treatments Planned Back to ortho for follow up on 03/31. Treatment Goals Patient/Caregiver Goals Hopes to get back to cardiac rehab. Get her arm working again. Prior Functional Status Baseline Function- ADL's Independent Baseline Function- Mobility Independent Current Functional Impairments (Reported) Functional Limitations- ADL's Needs assist to don compression LE garments. Needs assist for showers with built in seat and suction cup grab bars. Needs assist with washing and drying. Has a bidet attachment on her ADA height toilet. Bed has partial rail. Functional Limitations- Mobility/Gait Using QC for household walking at night. PT-OP-C Subjective Start: 03/04/22 08:38 Freq: Status: Active Protocol: Document 04/23/22 13:46 AW (Rec: 04/23/22 14:33 AW [id number]) OP-PT Subjective Patient Comments Patient Comments Showered with SBA this morning . PT-OP-F Manual Assessment Start: 03/04/22 08:38 Freq: Status: Active Protocol: Document 03/04/22 15:15 AW (Rec: 03/05/22 17:50 AW [id number]) Manual Assessments Soft Tissue Assessment Soft Tissue Mobility Assessment Left UT, cervical paraspinals, lats, teres, rhomboids all with moderately increased density Joint Mobility Assessment Joint Mobility Assessment Not assessed due to fracture PT-OP-J Posture/Palpation/Skin Start: 03/04/22 08:38 Freq: Status: Active Protocol: Document 03/04/22 15:15 AW (Rec: 03/05/22 17:50 AW [id number]) Posture Evaluation Comments Posture Comments Left humerus sits inferiorly in the glenoid. Pt has moderate dowagers hump and forward head. Skin Assessment Other Assessments Skin Assessment Comments Scattered bruising remains - largely around elbow. PT-OP-K Range of Motion Start: 03/04/22 08:38 Freq: Status: Active Protocol: Document 03/04/22 15:15 AW (Rec: 03/05/22 17:54 AW [id number]) Shoulder Goniometric Range of Motion Shoulder Left Passive Shoulder ROM WFL No Testing Position Supine Flexion 25 Abduction 45 Comments Limited exam with extreme caution. Will plan to re- measure PROM in 1 month PT-OP-Q Treatments Start: 03/04/22 08:38 Freq: Status: Active Protocol: Document 04/23/22 13:46 AW (Rec: 04/23/22 14:33 AW [id number]) Therapeutic Exercises Sitting Exercises table slide Sitting Exercise Name FF, scaption- Side right Resistance AAROM Equipment Used pillow case on arm Reps/Minutes x10 Comments scaption feels best no grab Standing Exercises AAROM Standing Exercise Name AAROM - ext, scaption, abduction Side right Resistance wand Comments max cues for set up; reassess next visit isometrics Standing Exercise Name ER, IR, extension- HEP reviewed Side left Reps/Minutes 5x5 ( home 10 reps each) Comments manual resist feedback then door frame- better Manual Therapy Treatment Soft Tissue Mobilization biceps, f/a ext and flexors, UT, pec Body Location R bicep, anterior deltoid, UT, Mobilization Type Rolling,Strumming Intensity/Depth Moderate Body Position Hooklying Joint Mobilizations GH Jt Joint R Direction posterior, inferior glide Grade II Body Position Hooklying Comments manual- good feedback response PT-OP-R Modalities Start: 03/04/22 08:38 Freq: Status: Active Protocol: Document 03/27/22 17:29 AMH (Rec: 03/27/22 17:29 AMH [id number]) Hot Pack/Cold Pack Treatment Cold Pack Location R shoulder/pec/bicep Patient Position Hooklying Treatment Duration (minutes) 10 Patient Tolerance Good Comments w/pillow support and towel roll under RUE PT-OP-T Assessment and Plan Start: 03/04/22 08:38 Freq: Status: Active Protocol: Document 04/23/22 13:46 AW (Rec: 04/23/22 14:33 AW [id number]) Physical Therapy Assessment Goals Four Impairment self-care and daily activities Perinatal Educator Goal (LTG) QuickDASH score 25% or less ( down from 68%). 04/15/22: progressing: pt states can put on support hose now, uses bed rail for in/out bed, just rinsing hair for now due to lack ROM and how long takes painful. LTG Duration 06/04/22 Three Impairment strength Short Term Goal (STG) Pt will lift her right arm to 75 degrees elevation in scaption plane 04/17/22 - Pt achieves 68 degrees elevation in scaption plane. STG Duration 04/08/22 Perinatal Educator Goal (LTG) Pt will use her right arm to lift and carry 10 pounds so she can carry groceries. LTG Duration 06/04/22 Two Impairment ROM Short Term Goal (STG) PROM right arm improved to 90 degrees in flexion and abduction. 04/15/22: progressing: PROM R shld FF 96deg, ABD 82 deg. STG Duration 04/08/22 progressing 04/15/22 Senior Living Goal (LTG) AROM right arm improved to within 10 degrees of left arm in flexion and abduction. LTG Duration 06/04/22 One Impairment lacks HEP Short Term Goal (STG) Pt will be instructed in HEP for ROM and strength (when appropriate) to support therapy services provided in clinic 04/15/22: R shld isometrics IR/ ER/Ext, AAROM wand supine, initiated table slides FF/ scaption/ER today. STG Duration 04/08/22 progressing 04/15/22 Senior Living Goal (LTG) Pt will be independent with HEP for right arm ROM and strength to sustain therapy gains. 04/15/22: R shld isometrics IR/ ER/Ext, AAROM wand supine, initiated table slides FF/ scaption/ER today. LTG Duration 06/04/22 progressing 04/15/22 Assessment Summary Assessment Initiated standing AAROM with dowel today. Mirror for visual feedback and max verbal cues needed for set up. Will plan to reassess next visit before giving as HEP. Physical Therapy Plan Frequency and Duration Frequency of Treatment 1-2x/week Duration of Treatment 3 months Plan of Care Start Date 03/04/22 Plan of Care End Date 06/04/22 Therapeutic Interventions Therapeutic Interventions Aquatic Therapy,Home Exercise Program,Manual Therapy, Neuromuscular Re-education, Self-Care/Home Management,Soft Tissue Mobilization,Taping, Therapeutic Activities, Therapeutic Exercises Modalities Cold Pack/Ice Massage,Electric Stimulation,Hot Packs Next Visit Focus/Plan Next Note Type Treatment Note Next Visit Plan Assess ongoing response to table slides. Assess response to standing AAROM. Continue STM to address R pec and periscapular tone.
--- NOTE | 2022-04-29 11:17 | PT.OTN ---
Current Diagnoses Weakness (04/29/22) 4-part fracture of surgical neck of right humerus, subsequent encounter for fracture with routine healing (04/29/22) Physical Therapy Treatment Note PT-OP-A Visit Information Start: 03/04/22 08:38 Freq: Status: Active Protocol: Document 04/29/22 10:33 SP (Rec: 04/29/22 11:32 SP [id number]) Out-Patient Physical Therapy Visit Information Visit Information Visit Type Treatment Note Visit Start Time 10:33 Visit Stop Time 11:17 Total Visit Minutes 44 Visit Number 12 Number of JAVA DEVELOPER ANALYST Visits 1 Evaluation Information Evaluation Date 03/04/22 Precautions Precautions Ortho referral updated mid- March: no restrictions. 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 She denies any other falls and calls this incident a freak accident. She fell on her right shoulder and hit her head. She was evaluated in the ED. X-ray of the shoulder revealed displaced, comminuted humeral head/neck fracture with inferior subluxation at the glenohumeral joint space. CT of the head revealed right parietal scalp hematoma but was otherwise negative. She left ED in a shoulder sling and followed up with ortho who recommended non-operative treatment. She saw ortho yesterday and doctor was satisfied with healing. Celena is now wearing a shoulder sling only at night for the most part. She was in cardiac rehab but had to stop after this injury. She is right handed. 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 She is sleeping on her back (usually a side sleeper). Granddaughter Kala is assisting at home. Celena is considering [facility] [place] for assist once Kala leaves. Prior Treatments and Tests Prior PT for hip pain Future Testing and Treatments Planned Back to ortho for follow up on 03/31. Treatment Goals Patient/Caregiver Goals Hopes to get back to cardiac rehab. Get her arm working again. Prior Functional Status Baseline Function- ADL's Independent Baseline Function- Mobility Independent Current Functional Impairments (Reported) Functional Limitations- ADL's Needs assist to don compression LE garments. Needs assist for showers with built in seat and suction cup grab bars. Needs assist with washing and drying. Has a bidet attachment on her ADA height toilet. Bed has partial rail. Functional Limitations- Mobility/Gait Using QC for household walking at night. PT-OP-C Subjective Start: 03/04/22 08:38 Freq: Status: Active Protocol: Document 04/29/22 10:33 SP (Rec: 04/29/22 11:32 SP [id number]) OP-PT Subjective Patient Comments Patient Comments Pt stated is showering herself and not needing outside help from [facility] [place]. She can make bed but still weak lifting things like her coffee pot. She is driving in town now feeling more confident, but not outside town yet. PT-OP-F Manual Assessment Start: 03/04/22 08:38 Freq: Status: Active Protocol: Document 03/04/22 15:15 AW (Rec: 03/05/22 17:50 AW [id number]) Manual Assessments Soft Tissue Assessment Soft Tissue Mobility Assessment Left UT, cervical paraspinals, lats, teres, rhomboids all with moderately increased density Joint Mobility Assessment Joint Mobility Assessment Not assessed due to fracture PT-OP-J Posture/Palpation/Skin Start: 03/04/22 08:38 Freq: Status: Active Protocol: Document 03/04/22 15:15 AW (Rec: 03/05/22 17:50 AW [id number]) Posture Evaluation Comments Posture Comments Left humerus sits inferiorly in the glenoid. Pt has moderate dowagers hump and forward head. Skin Assessment Other Assessments Skin Assessment Comments Scattered bruising remains - largely around elbow. PT-OP-K Range of Motion Start: 03/04/22 08:38 Freq: Status: Active Protocol: Document 03/04/22 15:15 AW (Rec: 03/05/22 17:54 AW [id number]) Shoulder Goniometric Range of Motion Shoulder Left Passive Shoulder ROM WFL No Testing Position Supine Flexion 25 Abduction 45 Comments Limited exam with extreme caution. Will plan to re- measure PROM in 1 month PT-OP-Q Treatments Start: 03/04/22 08:38 Freq: Status: Active Protocol: Document 04/29/22 10:33 SP (Rec: 04/29/22 11:32 SP [id number]) Therapeutic Exercises Supine Exercises AAROM shoulder Supine Exercise Name flexion (HEP reviewed), habd added self Resistance 120* AAROM self Equipment Used dowel Reps/Minutes x10 Comments cued elbow straight AAROM with dowel shoulder ER (windshield wipers) Supine Exercise Name HEP review Side right Resistance 48* AAROM, AROM L 50* for awareness Equipment Used dowel Reps/Minutes x 10 reps Comments cued keep elbow at side Sitting Exercises table slide Sitting Exercise Name FF, scaption- Side right Resistance AAROM Equipment Used pillow case on arm Reps/Minutes x10 Comments scaption feels best no grab Hand gripping Sitting Exercise Name Putty squeeze, finger gripping . Equipment Used Green Putty Reps/Minutes 3' AROM elbow, wrist, hand Sitting Exercise Name wrist pron/sup/flex/ext/RD/UD- added to HEP Resistance Tb #1 Reps/Minutes x10 reps each Comments cued set up and form, no bicep recruitment Standing Exercises isometrics Standing Exercise Name ER, IR, extension- HEP reviewed Side left Reps/Minutes 10 hold x5 reps Comments manual resist feedback then door frame- better Other Exercises Passive range Resistance therapist support Reps/Minutes flexion, abduction, IR ER Manual Therapy Treatment Soft Tissue Mobilization biceps, f/a ext and flexors, UT, pec Body Location R bicep, anterior deltoid, UT, Mobilization Type Rolling,Strumming Intensity/Depth Moderate Body Position Hooklying Joint Mobilizations GH Jt Joint R Direction posterior, inferior glide Grade II Body Position Hooklying Comments manual- good feedback response PT-OP-R Modalities Start: 03/04/22 08:38 Freq: Status: Active Protocol: Document 03/27/22 17:29 AMH (Rec: 03/27/22 17:29 AMH [id number]) Hot Pack/Cold Pack Treatment Cold Pack Location R shoulder/pec/bicep Patient Position Hooklying Treatment Duration (minutes) 10 Patient Tolerance Good Comments w/pillow support and towel roll under RUE PT-OP-T Assessment and Plan Start: 03/04/22 08:38 Freq: Status: Active Protocol: Document 04/29/22 10:33 SP (Rec: 04/29/22 11:32 SP [id number]) Physical Therapy Assessment Goals Four Impairment self-care and daily activities Boxing And Pressing Supervisor Goal (LTG) QuickDASH score 25% or less ( down from 68%). 04/15/22: progressing: pt states can put on support hose now, uses bed rail for in/out bed, just rinsing hair for now due to lack ROM and how long takes painful. LTG Duration 06/04/22 Three Impairment strength Short Term Goal (STG) Pt will lift her right arm to 75 degrees elevation in scaption plane 04/17/22 - Pt achieves 68 degrees elevation in scaption plane. STG Duration 04/08/22 Longterm Goal (LTG) Pt will use her right arm to lift and carry 10 pounds so she can carry groceries. 04/29/22: progressing: pt states uses LUE to support RUE carrying coffee pot but notices can carry more things now. LTG Duration 06/04/22 progressing 04/29/22 Two Impairment ROM Short Term Goal (STG) PROM right arm improved to 90 degrees in flexion and abduction. 04/15/22: progressing: PROM R shld FF 96deg, ABD 82 deg. STG Duration 04/08/22 progressing 04/15/22 Longterm Goal (LTG) AROM right arm improved to within 10 degrees of left arm in flexion and abduction. : progressing: AAROM supine FF 120 deg, LTG Duration 06/04/22 One Impairment lacks HEP Short Term Goal (STG) Pt will be instructed in HEP for ROM and strength (when appropriate) to support therapy services provided in clinic 04/15/22: R shld isometrics IR/ ER/Ext, AAROM wand supine, initiated table slides FF/ scaption/ER today. STG Duration 04/08/22 progressing 04/15/22 Longterm Goal (LTG) Pt will be independent with HEP for right arm ROM and strength to sustain therapy gains. 04/15/22: R shld isometrics IR/ ER/Ext, AAROM wand supine, initiated table slides FF/ scaption/ER today. 04/29/22: progressing occasional cues for posture/ form. LTG Duration 06/04/22 progressing 04/29/22 Progress Towards Goals Progress Towards Goals Progressing Toward Goals Progress Comments R shld flexion AAROM w/ dowel, gained 8 degrees flexion. Assessment Summary Assessment Pt making gains in AAROM using dowel, table slides and beginning strength isometrics. She tolerated added resisted hand/forearm to HEP to allow lift/carry items as coffee pot with less support of LUE. Occasional cues for set up/ form, forearm stationary on table, wrist movement only. Physical Therapy Plan Frequency and Duration Frequency of Treatment 1-2x/week Duration of Treatment 3 months Plan of Care Start Date 03/04/22 Plan of Care End Date 06/04/22 Therapeutic Interventions Therapeutic Interventions Aquatic Therapy,Home Exercise Program,Manual Therapy, Neuromuscular Re-education, Self-Care/Home Management,Soft Tissue Mobilization,Taping, Therapeutic Activities, Therapeutic Exercises Modalities Cold Pack/Ice Massage,Electric Stimulation,Hot Packs Next Visit Focus/Plan Next Note Type Treatment Note Next Visit Plan Measure ROM. Recheck wrist TB strengthening added last. Assess ongoing response to table slides. Assess response to standing AAROM. Continue STM to address R pec and periscapular tone.
--- NOTE | 2022-05-07 10:30 | PT.OTN ---
Current Diagnoses Weakness (05/07/22) 4-part fracture of surgical neck of right humerus, subsequent encounter for fracture with routine healing (05/07/22) Physical Therapy Treatment Note PT-OP-A Visit Information Start: 03/04/22 08:38 Freq: Status: Active Protocol: Document 05/07/22 09:50 SP (Rec: 05/07/22 10:35 SP [id number]) Out-Patient Physical Therapy Visit Information Visit Information Visit Type Treatment Note Visit Start Time 09:50 Visit Stop Time 10:30 Total Visit Minutes 40 Visit Number 13 Number of DYE STAND LOADER Visits 2 Evaluation Information Evaluation Date 03/04/22 Precautions Precautions Ortho referral updated mid- March: no restrictions. 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 She denies any other falls and calls this incident a freak accident. She fell on her right shoulder and hit her head. She was evaluated in the ED. X-ray of the shoulder revealed displaced, comminuted humeral head/neck fracture with inferior subluxation at the glenohumeral joint space. CT of the head revealed right parietal scalp hematoma but was otherwise negative. She left ED in a shoulder sling and followed up with ortho who recommended non-operative treatment. She saw ortho yesterday and doctor was satisfied with healing. Celena is now wearing a shoulder sling only at night for the most part. She was in cardiac rehab but had to stop after this injury. She is right handed. 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 She is sleeping on her back (usually a side sleeper). Granddaughter Kala is assisting at home. Celena is considering [facility] [place] for assist once Kala leaves. Prior Treatments and Tests Prior PT for hip pain Future Testing and Treatments Planned Back to ortho for follow up on 03/31. Treatment Goals Patient/Caregiver Goals Hopes to get back to cardiac rehab. Get her arm working again. Prior Functional Status Baseline Function- ADL's Independent Baseline Function- Mobility Independent Current Functional Impairments (Reported) Functional Limitations- ADL's Needs assist to don compression LE garments. Needs assist for showers with built in seat and suction cup grab bars. Needs assist with washing and drying. Has a bidet attachment on her ADA height toilet. Bed has partial rail. Functional Limitations- Mobility/Gait Using QC for household walking at night. PT-OP-C Subjective Start: 03/04/22 08:38 Freq: Status: Active Protocol: Document 05/07/22 09:50 SP (Rec: 05/07/22 10:35 SP [id number]) OP-PT Subjective Patient Comments Patient Comments Pt reported can now get shirt over head: head first then arms and doesn't have to wear buttoned shirt. She can now hold kettle with R with help needed with LUE, was reverse last tx. PT-OP-F Manual Assessment Start: 03/04/22 08:38 Freq: Status: Active Protocol: Document 03/04/22 15:15 AW (Rec: 03/05/22 17:50 AW [id number]) Manual Assessments Soft Tissue Assessment Soft Tissue Mobility Assessment Left UT, cervical paraspinals, lats, teres, rhomboids all with moderately increased density Joint Mobility Assessment Joint Mobility Assessment Not assessed due to fracture PT-OP-J Posture/Palpation/Skin Start: 03/04/22 08:38 Freq: Status: Active Protocol: Document 03/04/22 15:15 AW (Rec: 03/05/22 17:50 AW [id number]) Posture Evaluation Comments Posture Comments Left humerus sits inferiorly in the glenoid. Pt has moderate dowagers hump and forward head. Skin Assessment Other Assessments Skin Assessment Comments Scattered bruising remains - largely around elbow. PT-OP-K Range of Motion Start: 03/04/22 08:38 Freq: Status: Active Protocol: Document 05/07/22 09:50 SP (Rec: 05/07/22 10:35 SP [id number]) Shoulder Goniometric Range of Motion Shoulder R shld PROM Shoulder ROM WFL No Testing Position Supine Flexion 118 Abduction 103 External Rotation at 0 degrees Abduction 54 Comments 05/07/22: therapist supported, improved ABD post manual L shld AROM Shoulder ROM WFL No Testing Position Sitting Flexion 113 Extension 72 Abduction 99 External Rotation at 0 degrees Abduction 66 Internal Rotation Behind Back (text) T12 Comments 05/07/22 AROM seated except extension, measured in standing R shoulder Shoulder ROM WFL No Testing Position Sitting Flexion 59 Extension 34 Abduction 55 External Rotation at 0 degrees Abduction 20 Internal Rotation Behind Back (text) R buttocks Comments AROM seated PT-OP-Q Treatments Start: 03/04/22 08:38 Freq: Status: Active Protocol: Document 05/07/22 09:50 SP (Rec: 05/07/22 10:35 SP [id number]) Therapeutic Exercises Supine Exercises AAROM shoulder Supine Exercise Name flexion (HEP reviewed), habd added self Side bilateral Resistance R 125* AAROM FF, 90* ABD; L 149* FF, 110 * ABD- self Equipment Used dowel Reps/Minutes x10 Comments cued elbow straight AAROM with dowel shoulder ER ([employer] wipers) Supine Exercise Name HEP review Side right Resistance 51* AAROM, AAROM L 57* for awareness Equipment Used dowel Reps/Minutes x 10 reps Comments cued keep elbow at side Passive shoulder Flex Supine Exercise Name PROM: FF, ABD, ER Side right Reps/Minutes 3 min Comments distal deltoid att tension discomfort, better post manual Sitting Exercises table slide Sitting Exercise Name FF, scaption- Side bilateral Resistance AAROM Equipment Used pillow case on arm Reps/Minutes x10 each direction both UEs (R more limited than L) Comments good response stretch, able get further reach Standing Exercises R Shld TB Standing Exercise Name add future appt. Manual Therapy Treatment Soft Tissue Mobilization biceps, f/a ext and flexors, UT, pec Body Location R bicep, anterior deltoid, UT, Mobilization Type Rolling,Strumming Intensity/Depth Moderate Body Position Hooklying Joint Mobilizations scapulothoracic Joint L Direction inferior, down rotation Grade II Body Position side Comments manual, good feedback- tight resistant to downward rotation . PT-OP-R Modalities Start: 03/04/22 08:38 Freq: Status: Active Protocol: Document 03/27/22 17:29 AMH (Rec: 03/27/22 17:29 AMH [id number]) Hot Pack/Cold Pack Treatment Cold Pack Location R shoulder/pec/bicep Patient Position Hooklying Treatment Duration (minutes) 10 Patient Tolerance Good Comments w/pillow support and towel roll under RUE PT-OP-T Assessment and Plan Start: 03/04/22 08:38 Freq: Status: Active Protocol: Document 05/07/22 09:50 SP (Rec: 05/07/22 10:35 SP [id number]) Physical Therapy Assessment Goals Four Impairment self-care and daily activities Usp Goal (LTG) QuickDASH score 25% or less ( down from 68%). 04/15/22: progressing: pt states can put on support hose now, uses bed rail for in/out bed, just rinsing hair for now due to lack ROM and how long takes painful. LTG Duration 06/04/22 Three Impairment strength Short Term Goal (STG) Pt will lift her right arm to 75 degrees elevation in scaption plane 04/17/22 - Pt achieves 68 degrees elevation in scaption plane. STG Duration 04/08/22 Usp Goal (LTG) Pt will use her right arm to lift and carry 10 pounds so she can carry groceries. 04/29/22: progressing: pt states uses LUE to support RUE carrying coffee pot but notices can carry more things now. LTG Duration 06/04/22 progressing 04/29/22 Two Impairment ROM Short Term Goal (STG) PROM right arm improved to 90 degrees in flexion and abduction. 04/15/22: progressing: PROM R shld FF 96deg, ABD 82 deg. STG Duration 04/08/22 progressing 04/15/22 Usp Goal (LTG) AROM right arm improved to within 10 degrees of left arm in flexion and abduction. : progressing: AAROM supine FF 120 deg, LTG Duration 06/04/22 One Impairment lacks HEP Short Term Goal (STG) Pt will be instructed in HEP for ROM and strength (when appropriate) to support therapy services provided in clinic 04/15/22: R shld isometrics IR/ ER/Ext, AAROM wand supine, initiated table slides FF/ scaption/ER today. STG Duration 04/08/22 progressing 04/15/22 Shaft Repairer Goal (LTG) Pt will be independent with HEP for right arm ROM and strength to sustain therapy gains. 04/15/22: R shld isometrics IR/ ER/Ext, AAROM wand supine, initiated table slides FF/ scaption/ER today. 04/29/22: progressing occasional cues for posture/ form. LTG Duration 06/04/22 progressing 04/29/22 Progress Towards Goals Progress Towards Goals Progressing Toward Goals Progress Comments R shld Flexion AAROM dowel improve 5 deg FF (125*), ER gained 3 deg (51*) R, 57 * on L. Assessment Summary Assessment Pt responded well to HEP, manual with noted increase AAROM/PROM, see measurements taken. Pt able to start carry kettle with RLE and support with LUE since last tx. Discussed awareness not using shld elevation neck muscles to Physical Therapy Plan Frequency and Duration Frequency of Treatment 1-2x/week Duration of Treatment 3 months Plan of Care Start Date 03/04/22 Plan of Care End Date 06/04/22 Therapeutic Interventions Therapeutic Interventions Aquatic Therapy,Home Exercise Program,Manual Therapy, Neuromuscular Re-education, Self-Care/Home Management,Soft Tissue Mobilization,Taping, Therapeutic Activities, Therapeutic Exercises Modalities Cold Pack/Ice Massage,Electric Stimulation,Hot Packs Next Visit Focus/Plan Next Note Type Treatment Note Next Visit Plan Recheck wrist TB strengthening added, isometric, pulleys. Progress ROM. Assess response to standing AAROM. Possible assess and add eccentric ROM with TB if able. Continue STM to address R pec and periscapular tone.
--- NOTE | 2022-05-09 11:35 | PT-OP ANOTE ---
Pt left message at 0913 that having stomach issues and not able to attend PT this afternoon.
--- NOTE | 2022-05-13 20:52 | PT.OTN ---
Current Diagnoses Weakness (05/13/22) 4-part fracture of surgical neck of right humerus, subsequent encounter for fracture with routine healing (05/13/22) Physical Therapy Treatment Note PT-OP-A Visit Information Start: 03/04/22 08:38 Freq: Status: Active Protocol: Document 05/13/22 08:18 AMB (Rec: 05/13/22 08:59 AMB [id number]) Out-Patient Physical Therapy Visit Information Visit Information Visit Type Treatment Note Visit Start Time 08:15 Visit Stop Time 09:00 Total Visit Minutes 45 Visit Number 14 Number of COMPENSATION VICE PRESIDENT Visits 0 PT-OP-B Current Condition Start: 03/04/22 08:38 Freq: Status: Active Protocol: Document 03/04/22 15:15 AW (Rec: 03/04/22 08:49 AW [id number]) Current Condition History of Current Condition Onset Date 01/28/22 Current Complaints right shoulder pain and stiffness after proximal humerus fracture History of Current Condition 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 She denies any other falls and calls this incident a freak accident. She fell on her right shoulder and hit her head. She was evaluated in the ED. X-ray of the shoulder revealed displaced, comminuted humeral head/neck fracture with inferior subluxation at the glenohumeral joint space. CT of the head revealed right parietal scalp hematoma but was otherwise negative. She left ED in a shoulder sling and followed up with ortho who recommended non-operative treatment. She saw ortho yesterday and doctor was satisfied with healing. Celena is now wearing a shoulder sling only at night for the most part. She was in cardiac rehab but had to stop after this injury. She is right handed. 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 She is sleeping on her back (usually a side sleeper). Granddaughter Kala is assisting at home. Celena is considering Visiting [place] for assist once Kala leaves. Prior Treatments and Tests Prior PT for hip pain Future Testing and Treatments Planned Back to ortho for follow up on 03/31. Treatment Goals Patient/Caregiver Goals Hopes to get back to cardiac rehab. Get her arm working again. Prior Functional Status Baseline Function- ADL's Independent Baseline Function- Mobility Independent Current Functional Impairments (Reported) Functional Limitations- ADL's Needs assist to don compression LE garments. Needs assist for showers with built in seat and suction cup grab bars. Needs assist with washing and drying. Has a bidet attachment on her ADA height toilet. Bed has partial rail. Functional Limitations- Mobility/Gait Using QC for household walking at night. PT-OP-C Subjective Start: 03/04/22 08:38 Freq: Status: Active Protocol: Document 05/13/22 08:18 AMB (Rec: 05/13/22 08:59 AMB [id number]) OP-PT Subjective Patient Comments Patient Comments Pt reports exercises are taking about 30 minutes per day. PT-OP-F Manual Assessment Start: 03/04/22 08:38 Freq: Status: Active Protocol: Document 03/04/22 15:15 AW (Rec: 03/05/22 17:50 AW [id number]) Manual Assessments Soft Tissue Assessment Soft Tissue Mobility Assessment Left UT, cervical paraspinals, lats, teres, rhomboids all with moderately increased density Joint Mobility Assessment Joint Mobility Assessment Not assessed due to fracture PT-OP-J Posture/Palpation/Skin Start: 03/04/22 08:38 Freq: Status: Active Protocol: Document 03/04/22 15:15 AW (Rec: 03/05/22 17:50 AW [id number]) Posture Evaluation Comments Posture Comments Left humerus sits inferiorly in the glenoid. Pt has moderate dowagers hump and forward head. Skin Assessment Other Assessments Skin Assessment Comments Scattered bruising remains - largely around elbow. PT-OP-K Range of Motion Start: 03/04/22 08:38 Freq: Status: Active Protocol: Document 05/07/22 09:50 SP (Rec: 05/07/22 10:35 SP [id number]) Shoulder Goniometric Range of Motion Shoulder R shld PROM Shoulder ROM WFL No Testing Position Supine Flexion 118 Abduction 103 External Rotation at 0 degrees Abduction 54 Comments 05/07/22: therapist supported, improved ABD post manual L shld AROM Shoulder ROM WFL No Testing Position Sitting Flexion 113 Extension 72 Abduction 99 External Rotation at 0 degrees Abduction 66 Internal Rotation Behind Back (text) T12 Comments 05/07/22 AROM seated except extension, measured in standing R shoulder Shoulder ROM WFL No Testing Position Sitting Flexion 59 Extension 34 Abduction 55 External Rotation at 0 degrees Abduction 20 Internal Rotation Behind Back (text) R buttocks Comments AROM seated PT-OP-Q Treatments Start: 03/04/22 08:38 Freq: Status: Active Protocol: Document 05/13/22 08:15 AMB (Rec: 05/13/22 12:01 AMB [id number]) Therapeutic Exercises Supine Exercises flexion Supine Exercise Name AAROM into flexion AROM controlling descent Reps/Minutes 3 Comments slow isometrics Supine Exercise Name IR and extension Reps/Minutes 5x5 Comments IR into belly, extension into table AAROM shoulder Supine Exercise Name flexion (HEP reviewed), habd added self Side bilateral Equipment Used dowel Reps/Minutes x10 Comments cued elbow straight Passive shoulder Flex Supine Exercise Name PROM: FF, ABD, ER Side right Reps/Minutes 3 min Comments distal deltoid att tension discomfort, better post manual Sidelying Exercises 1 Sidelying Exercise Name ER AROM Side right Reps/Minutes 10 Comments partial Sitting Exercises Shoulder rolls Sitting Exercise Name Fwd/Bwd Side bilateral Reps/Minutes 15x each Comments vc Manual Therapy Treatment Joint Mobilizations scapulothoracic Joint L Direction inferior, down rotation Grade II Body Position side Comments manual, good feedback- tight resistant to downward rotation . GH Jt Joint R Direction posterior, inferior glide Grade II Body Position Hooklying Comments manual- good feedback response PT-OP-R Modalities Start: 03/04/22 08:38 Freq: Status: Active Protocol: Document 03/27/22 17:29 AMH (Rec: 03/27/22 17:29 AMH [id number]) Hot Pack/Cold Pack Treatment Cold Pack Location R shoulder/pec/bicep Patient Position Hooklying Treatment Duration (minutes) 10 Patient Tolerance Good Comments w/pillow support and towel roll under RUE PT-OP-T Assessment and Plan Start: 03/04/22 08:38 Freq: Status: Active Protocol: Document 05/13/22 08:18 AMB (Rec: 05/13/22 08:59 AMB [id number]) Physical Therapy Assessment Goals Four Impairment self-care and daily activities Mat Cleaning Machine Operator Goal (LTG) QuickDASH score 25% or less ( down from 68%). 04/15/22: progressing: pt states can put on support hose now, uses bed rail for in/out bed, just rinsing hair for now due to lack ROM and how long takes painful. LTG Duration 06/04/22 Three Impairment strength Short Term Goal (STG) Pt will lift her right arm to 75 degrees elevation in scaption plane 04/17/22 - Pt achieves 68 degrees elevation in scaption plane. STG Duration 04/08/22 Mat Cleaning Machine Operator Goal (LTG) Pt will use her right arm to lift and carry 10 pounds so she can carry groceries. 04/29/22: progressing: pt states uses LUE to support RUE carrying coffee pot but notices can carry more things now. LTG Duration 06/04/22 progressing 04/29/22 Two Impairment ROM Short Term Goal (STG) PROM right arm improved to 90 degrees in flexion and abduction. 04/15/22: progressing: PROM R shld FF 96deg, ABD 82 deg. STG Duration 04/08/22 progressing 04/15/22 Care Home Goal (LTG) AROM right arm improved to within 10 degrees of left arm in flexion and abduction. : progressing: AAROM supine FF 120 deg, LTG Duration 06/04/22 One Impairment lacks HEP Short Term Goal (STG) Pt will be instructed in HEP for ROM and strength (when appropriate) to support therapy services provided in clinic 04/15/22: R shld isometrics IR/ ER/Ext, AAROM wand supine, initiated table slides FF/ scaption/ER today. STG Duration 04/08/22 progressing 04/15/22 Mat Cleaning Machine Operator Goal (LTG) Pt will be independent with HEP for right arm ROM and strength to sustain therapy gains. 04/15/22: R shld isometrics IR/ ER/Ext, AAROM wand supine, initiated table slides FF/ scaption/ER today. 04/29/22: progressing occasional cues for posture/ form. LTG Duration 06/04/22 progressing 04/29/22 Assessment Summary Assessment Celena is doing well with her strengthening, encouraged her to discuss HEP with us if it is getting too long. Functionally improving well, tolerated supine/sidelying exercises well but does continue to have periscapular tension. Physical Therapy Plan Next Visit Focus/Plan Next Note Type Treatment Note Next Visit Plan Recheck wrist TB strengthening added, isometric, pulleys. Progress ROM. Assess response to standing AAROM. Possible assess and add eccentric ROM with TB if able. Continue STM to address R pec and periscapular tone.
--- NOTE | 2022-05-16 09:00 | PT.OTN ---
Current Diagnoses Weakness (05/16/22) 4-part fracture of surgical neck of right humerus, subsequent encounter for fracture with routine healing (05/16/22) Physical Therapy Treatment Note PT-OP-A Visit Information Start: 03/04/22 08:38 Freq: Status: Active Protocol: Document 05/16/22 08:19 SP (Rec: 05/16/22 09:04 SP [id number]) Out-Patient Physical Therapy Visit Information Visit Information Visit Type Treatment Note Visit Start Time 08:19 Visit Stop Time 09:00 Total Visit Minutes 41 Visit Number 15 Number of SALES TRAINEE Visits 1 Evaluation Information Evaluation Date 03/04/22 Precautions Precautions Ortho referral updated mid- March: no restrictions. 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 She denies any other falls and calls this incident a freak accident. She fell on her right shoulder and hit her head. She was evaluated in the ED. X-ray of the shoulder revealed displaced, comminuted humeral head/neck fracture with inferior subluxation at the glenohumeral joint space. CT of the head revealed right parietal scalp hematoma but was otherwise negative. She left ED in a shoulder sling and followed up with ortho who recommended non-operative treatment. She saw ortho yesterday and doctor was satisfied with healing. Celena is now wearing a shoulder sling only at night for the most part. She was in cardiac rehab but had to stop after this injury. She is right handed. 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 She is sleeping on her back (usually a side sleeper). Granddaughter Kala is assisting at home. Celena is considering Visiting [place] for assist once Kala leaves. Prior Treatments and Tests Prior PT for hip pain Future Testing and Treatments Planned Back to ortho for follow up on 03/31. Treatment Goals Patient/Caregiver Goals Hopes to get back to cardiac rehab. Get her arm working again. Prior Functional Status Baseline Function- ADL's Independent Baseline Function- Mobility Independent Current Functional Impairments (Reported) Functional Limitations- ADL's Needs assist to don compression LE garments. Needs assist for showers with built in seat and suction cup grab bars. Needs assist with washing and drying. Has a bidet attachment on her ADA height toilet. Bed has partial rail. Functional Limitations- Mobility/Gait Using QC for household walking at night. PT-OP-C Subjective Start: 03/04/22 08:38 Freq: Status: Active Protocol: Document 05/16/22 08:19 SP (Rec: 05/16/22 09:04 SP [id number]) OP-PT Subjective Patient Comments Patient Comments Pt reports the new use of LUE supporting RUE and eccentric lowering has helped alot with strength feels. PT-OP-F Manual Assessment Start: 03/04/22 08:38 Freq: Status: Active Protocol: Document 03/04/22 15:15 AW (Rec: 03/05/22 17:50 AW [id number]) Manual Assessments Soft Tissue Assessment Soft Tissue Mobility Assessment Left UT, cervical paraspinals, lats, teres, rhomboids all with moderately increased density Joint Mobility Assessment Joint Mobility Assessment Not assessed due to fracture PT-OP-J Posture/Palpation/Skin Start: 03/04/22 08:38 Freq: Status: Active Protocol: Document 03/04/22 15:15 AW (Rec: 03/05/22 17:50 AW [id number]) Posture Evaluation Comments Posture Comments Left humerus sits inferiorly in the glenoid. Pt has moderate dowagers hump and forward head. Skin Assessment Other Assessments Skin Assessment Comments Scattered bruising remains - largely around elbow. PT-OP-K Range of Motion Start: 03/04/22 08:38 Freq: Status: Active Protocol: Document 05/07/22 09:50 SP (Rec: 05/07/22 10:35 SP [id number]) Shoulder Goniometric Range of Motion Shoulder R shld PROM Shoulder ROM WFL No Testing Position Supine Flexion 118 Abduction 103 External Rotation at 0 degrees Abduction 54 Comments 05/07/22: therapist supported, improved ABD post manual L shld AROM Shoulder ROM WFL No Testing Position Sitting Flexion 113 Extension 72 Abduction 99 External Rotation at 0 degrees Abduction 66 Internal Rotation Behind Back (text) T12 Comments 05/07/22 AROM seated except extension, measured in standing R shoulder Shoulder ROM WFL No Testing Position Sitting Flexion 59 Extension 34 Abduction 55 External Rotation at 0 degrees Abduction 20 Internal Rotation Behind Back (text) R buttocks Comments AROM seated PT-OP-Q Treatments Start: 03/04/22 08:38 Freq: Status: Active Protocol: Document 05/16/22 08:19 SP (Rec: 05/16/22 09:04 SP [id number]) Therapeutic Exercises Supine Exercises flexion Supine Exercise Name AAROM into flexion AROM controlling eccentric descent Reps/Minutes x8 reps Comments good slow eccentric descent form with elbow straight AAROM shoulder Supine Exercise Name flexion (HEP reviewed), habd added self Side bilateral Equipment Used dowel Reps/Minutes x10 Comments cued elbow straight Passive shoulder Flex Supine Exercise Name PROM: FF, ABD, ER, bicep stretch into abd w/pron/sup Side right Reps/Minutes 3 min Comments distal deltoid att tension discomfort, better post manual AROM elbow, wrist, hand Supine Exercise Name Active elbow flexion Side right Reps/Minutes 15x 2 Sitting Exercises AROM elbow, wrist, hand Sitting Exercise Name wrist pron/sup/flex/ext/RD- reviewed HEP Resistance AROM flexion, TB #2 RD/ext/ Reps/Minutes x10 reps each, 2 sec hold flexion, stab forearm on table LUE Comments cued set up and form, 90deg sit trunk for no bicep recruitment Standing Exercises R Shld TB Standing Exercise Name B shld ext Resistance TB #1 Reps/Minutes x10 Comments cued tall posture, retraction Manual Therapy Treatment Joint Mobilizations scapulothoracic Joint L Direction inferior, down rotation Grade II Body Position side Comments manual, good feedback- tight resistant to downward rotation . GH Jt Joint R Direction posterior, inferior glide Grade II Body Position Hooklying Comments manual- good feedback response PT-OP-R Modalities Start: 03/04/22 08:38 Freq: Status: Active Protocol: Document 03/27/22 17:29 AMH (Rec: 03/27/22 17:29 AMH [id number]) Hot Pack/Cold Pack Treatment Cold Pack Location R shoulder/pec/bicep Patient Position Hooklying Treatment Duration (minutes) 10 Patient Tolerance Good Comments w/pillow support and towel roll under RUE PT-OP-T Assessment and Plan Start: 03/04/22 08:38 Freq: Status: Active Protocol: Document 05/16/22 08:19 SP (Rec: 05/16/22 09:04 SP [id number]) Physical Therapy Assessment Goals Four Impairment self-care and daily activities Half-Way Goal (LTG) QuickDASH score 25% or less ( down from 68%). 04/15/22: progressing: pt states can put on support hose now, uses bed rail for in/out bed, just rinsing hair for now due to lack ROM and how long takes painful. LTG Duration 06/04/22 Three Impairment strength Short Term Goal (STG) Pt will lift her right arm to 75 degrees elevation in scaption plane 04/17/22 - Pt achieves 68 degrees elevation in scaption plane. STG Duration 04/08/22 Half-Way Goal (LTG) Pt will use her right arm to lift and carry 10 pounds so she can carry groceries. 04/29/22: progressing: pt states uses LUE to support RUE carrying coffee pot but notices can carry more things now. LTG Duration 06/04/22 progressing 04/29/22 Two Impairment ROM Short Term Goal (STG) PROM right arm improved to 90 degrees in flexion and abduction. 04/15/22: progressing: PROM R shld FF 96deg, ABD 82 deg. STG Duration 04/08/22 progressing 04/15/22 Card Dealer Goal (LTG) AROM right arm improved to within 10 degrees of left arm in flexion and abduction. : progressing: AAROM supine FF 120 deg, LTG Duration 06/04/22 One Impairment lacks HEP Short Term Goal (STG) Pt will be instructed in HEP for ROM and strength (when appropriate) to support therapy services provided in clinic 04/15/22: R shld isometrics IR/ ER/Ext, AAROM wand supine, initiated table slides FF/ scaption/ER today. STG Duration 04/08/22 progressing 04/15/22 Card Dealer Goal (LTG) Pt will be independent with HEP for right arm ROM and strength to sustain therapy gains. 04/15/22: R shld isometrics IR/ ER/Ext, AAROM wand supine, initiated table slides FF/ scaption/ER today. 04/29/22: progressing occasional cues for posture/ form. LTG Duration 06/04/22 progressing 04/29/22 Assessment Summary Assessment Pt responded well to increased resistance to wrist ext, RD continue AROM-TB #1 for flexion holds and cues for posture positioning to less bicep recruitment. Initiated shld ext with improved posture and muscle effort/ scap stability as reps progressed. Physical Therapy Plan Frequency and Duration Frequency of Treatment 1-2x/week Plan of Care Start Date 03/04/22 Plan of Care End Date 06/04/22 Therapeutic Interventions Therapeutic Interventions Aquatic Therapy,Home Exercise Program,Manual Therapy, Neuromuscular Re-education, Self-Care/Home Management,Soft Tissue Mobilization,Taping, Therapeutic Activities, Therapeutic Exercises Modalities Cold Pack/Ice Massage,Electric Stimulation,Hot Packs Next Visit Focus/Plan Next Note Type Treatment Note Next Visit Plan Recheck shld ext w/scap retraction, isometric, pulleys . Progress ROM. Assess response to standing AAROM. Possible assess and add eccentric ROM with TB if able. Continue STM to address R pec and periscapular tone.
--- NOTE | 2022-05-21 09:49 | PT.OTN ---
Current Diagnoses Weakness (05/21/22) 4-part fracture of surgical neck of right humerus, subsequent encounter for fracture with routine healing (05/21/22) Physical Therapy Treatment Note PT-OP-A Visit Information Start: 03/04/22 08:38 Freq: Status: Active Protocol: Document 05/21/22 08:50 AW (Rec: 05/21/22 09:48 AW [id number]) Out-Patient Physical Therapy Visit Information Visit Information Visit Type Treatment Note Visit Start Time 09:00 Visit Stop Time 09:40 Total Visit Minutes 40 Visit Number 16 Number of GAS WELDING MACHINE OPERATOR Visits 0 Precautions Precautions Ortho referral updated mid- March: no restrictions. 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 She denies any other falls and calls this incident a freak accident. She fell on her right shoulder and hit her head. She was evaluated in the ED. X-ray of the shoulder revealed displaced, comminuted humeral head/neck fracture with inferior subluxation at the glenohumeral joint space. CT of the head revealed right parietal scalp hematoma but was otherwise negative. She left ED in a shoulder sling and followed up with ortho who recommended non-operative treatment. She saw ortho yesterday and doctor was satisfied with healing. Celena is now wearing a shoulder sling only at night for the most part. She was in cardiac rehab but had to stop after this injury. She is right handed. 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 She is sleeping on her back (usually a side sleeper). Granddaughter Kala is assisting at home. Celena is considering Visiting [place] for assist once Kala leaves. Prior Treatments and Tests Prior PT for hip pain Future Testing and Treatments Planned Back to ortho for follow up on 03/31. Treatment Goals Patient/Caregiver Goals Hopes to get back to cardiac rehab. Get her arm working again. Prior Functional Status Baseline Function- ADL's Independent Baseline Function- Mobility Independent Current Functional Impairments (Reported) Functional Limitations- ADL's Needs assist to don compression LE garments. Needs assist for showers with built in seat and suction cup grab bars. Needs assist with washing and drying. Has a bidet attachment on her ADA height toilet. Bed has partial rail. Functional Limitations- Mobility/Gait Using QC for household walking at night. PT-OP-C Subjective Start: 03/04/22 08:38 Freq: Status: Active Protocol: Document 05/21/22 08:50 AW (Rec: 05/21/22 09:48 AW [id number]) OP-PT Subjective Patient Comments Patient Comments Doing well today and feeling stronger Patient Reported Progress Improving PT-OP-F Manual Assessment Start: 03/04/22 08:38 Freq: Status: Active Protocol: Document 03/04/22 15:15 AW (Rec: 03/05/22 17:50 AW [id number]) Manual Assessments Soft Tissue Assessment Soft Tissue Mobility Assessment Left UT, cervical paraspinals, lats, teres, rhomboids all with moderately increased density Joint Mobility Assessment Joint Mobility Assessment Not assessed due to fracture PT-OP-J Posture/Palpation/Skin Start: 03/04/22 08:38 Freq: Status: Active Protocol: Document 03/04/22 15:15 AW (Rec: 03/05/22 17:50 AW [id number]) Posture Evaluation Comments Posture Comments Left humerus sits inferiorly in the glenoid. Pt has moderate dowagers hump and forward head. Skin Assessment Other Assessments Skin Assessment Comments Scattered bruising remains - largely around elbow. PT-OP-K Range of Motion Start: 03/04/22 08:38 Freq: Status: Active Protocol: Document 05/07/22 09:50 SP (Rec: 05/07/22 10:35 SP [id number]) Shoulder Goniometric Range of Motion Shoulder R shld PROM Shoulder ROM WFL No Testing Position Supine Flexion 118 Abduction 103 External Rotation at 0 degrees Abduction 54 Comments 05/07/22: therapist supported, improved ABD post manual L shld AROM Shoulder ROM WFL No Testing Position Sitting Flexion 113 Extension 72 Abduction 99 External Rotation at 0 degrees Abduction 66 Internal Rotation Behind Back (text) T12 Comments 05/07/22 AROM seated except extension, measured in standing R shoulder Shoulder ROM WFL No Testing Position Sitting Flexion 59 Extension 34 Abduction 55 External Rotation at 0 degrees Abduction 20 Internal Rotation Behind Back (text) R buttocks Comments AROM seated PT-OP-Q Treatments Start: 03/04/22 08:38 Freq: Status: Active Protocol: Document 05/21/22 08:50 AW (Rec: 05/21/22 09:48 AW [id number]) Therapeutic Exercises Supine Exercises AAROM shoulder Supine Exercise Name flexion (HEP reviewed), habd added self Side bilateral Equipment Used dowel Reps/Minutes x10 Comments cued elbow straight AAROM with dowel shoulder ER ([place] hosp[employer]ield wipers) Supine Exercise Name HEP review Side right Resistance 51* AAROM, AAROM L 57* for awareness Equipment Used dowel Reps/Minutes x 10 reps Comments cued keep elbow at side Passive shoulder Flex Supine Exercise Name PROM: FF, ABD, ER, bicep stretch into abd w/pron/sup Side right Reps/Minutes 3 min Comments distal deltoid att tension discomfort, better post manual Sidelying Exercises 1 Sidelying Exercise Name ER AROM Side right Reps/Minutes 10 Comments partial Sitting Exercises seated shoulder kaylee AAROM flexion Sitting Exercise Name flexion, scaption Reps/Minutes x 15 reps Shoulder rolls Sitting Exercise Name Fwd/Bwd Side bilateral Reps/Minutes 15x each Comments vc Standing Exercises IR Standing Exercise Name IR Side right Resistance TB1 Reps/Minutes 2x8 Comments HEP R Shld TB Standing Exercise Name B shld ext Resistance TB #1 Reps/Minutes x10 Comments cued tall posture, retraction Manual Therapy Treatment Joint Mobilizations GH Jt Joint R Direction posterior, inferior glide Grade II Body Position Hooklying Comments manual- good feedback response PT-OP-R Modalities Start: 03/04/22 08:38 Freq: Status: Active Protocol: Document 03/27/22 17:29 AMH (Rec: 03/27/22 17:29 AMH [id number]) Hot Pack/Cold Pack Treatment Cold Pack Location R shoulder/pec/bicep Patient Position Hooklying Treatment Duration (minutes) 10 Patient Tolerance Good Comments w/pillow support and towel roll under RUE PT-OP-T Assessment and Plan Start: 03/04/22 08:38 Freq: Status: Active Protocol: Document 05/21/22 08:50 AW (Rec: 05/21/22 09:48 AW [id number]) Physical Therapy Assessment Goals Four Impairment self-care and daily activities [facility] Goal (LTG) QuickDASH score 25% or less ( down from 68%). 04/15/22: progressing: pt states can put on support hose now, uses bed rail for in/out bed, just rinsing hair for now due to lack ROM and how long takes painful. LTG Duration 06/04/22 Three Impairment strength Short Term Goal (STG) Pt will lift her right arm to 75 degrees elevation in scaption plane 04/17/22 - Pt achieves 68 degrees elevation in scaption plane. STG Duration 04/08/22 911 Dispatcher Goal (LTG) Pt will use her right arm to lift and carry 10 pounds so she can carry groceries. 04/29/22: progressing: pt states uses LUE to support RUE carrying coffee pot but notices can carry more things now. LTG Duration 06/04/22 progressing 04/29/22 Two Impairment ROM Short Term Goal (STG) PROM right arm improved to 90 degrees in flexion and abduction. 04/15/22: progressing: PROM R shld FF 96deg, ABD 82 deg. STG Duration 04/08/22 progressing 04/15/22 [facility] Goal (LTG) AROM right arm improved to within 10 degrees of left arm in flexion and abduction. : progressing: AAROM supine FF 120 deg, LTG Duration 06/04/22 One Impairment lacks HEP Short Term Goal (STG) Pt will be instructed in HEP for ROM and strength (when appropriate) to support therapy services provided in clinic 04/15/22: R shld isometrics IR/ ER/Ext, AAROM wand supine, initiated table slides FF/ scaption/ER today. STG Duration 04/08/22 progressing 04/15/22 911 Dispatcher Goal (LTG) Pt will be independent with HEP for right arm ROM and strength to sustain therapy gains. 04/15/22: R shld isometrics IR/ ER/Ext, AAROM wand supine, initiated table slides FF/ scaption/ER today. 04/29/22: progressing occasional cues for posture/ form. LTG Duration 06/04/22 progressing 04/29/22 Assessment Summary Assessment Pt improving in eccentric control of flexion. She was able to do standing internal rotation with light resistance which was added to HEP. Physical Therapy Plan Frequency and Duration Frequency of Treatment 1-2x/week Plan of Care Start Date 03/04/22 Plan of Care End Date 06/04/22 Therapeutic Interventions Therapeutic Interventions Aquatic Therapy,Home Exercise Program,Manual Therapy, Neuromuscular Re-education, Self-Care/Home Management,Soft Tissue Mobilization,Taping, Therapeutic Activities, Therapeutic Exercises Modalities Cold Pack/Ice Massage,Electric Stimulation,Hot Packs Next Visit Focus/Plan Next Note Type Treatment Note Next Visit Plan Recheck shld ext w/scap retraction, isometric, pulleys . Progress ROM. Assess response to standing AAROM. Possible assess and add eccentric ROM with TB if able. Continue STM to address R pec and periscapular tone.
--- NOTE | 2022-05-23 09:00 | PT.OTN ---
Current Diagnoses Weakness (05/23/22) 4-part fracture of surgical neck of right humerus, subsequent encounter for fracture with routine healing (05/23/22) Physical Therapy Treatment Note PT-OP-A Visit Information Start: 03/04/22 08:38 Freq: Status: Active Protocol: Document 05/23/22 08:21 SP (Rec: 05/23/22 09:04 SP [id number]) Out-Patient Physical Therapy Visit Information Visit Information Visit Type Treatment Note Visit Start Time 08:21 Visit Stop Time 09:00 Total Visit Minutes 41 Visit Number 17 Number of PREPLEATER Visits 1 Evaluation Information Evaluation Date 03/04/22 Precautions Precautions Ortho referral updated mid- March: no restrictions. 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 She denies any other falls and calls this incident a freak accident. She fell on her right shoulder and hit her head. She was evaluated in the ED. X-ray of the shoulder revealed displaced, comminuted humeral head/neck fracture with inferior subluxation at the glenohumeral joint space. CT of the head revealed right parietal scalp hematoma but was otherwise negative. She left ED in a shoulder sling and followed up with ortho who recommended non-operative treatment. She saw ortho yesterday and doctor was satisfied with healing. Celena is now wearing a shoulder sling only at night for the most part. She was in cardiac rehab but had to stop after this injury. She is right handed. 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 She is sleeping on her back (usually a side sleeper). Granddaughter Kala is assisting at home. Celena is considering Visiting [place] for assist once Kala leaves. Prior Treatments and Tests Prior PT for hip pain Future Testing and Treatments Planned Back to ortho for follow up on 03/31. Treatment Goals Patient/Caregiver Goals Hopes to get back to cardiac rehab. Get her arm working again. Prior Functional Status Baseline Function- ADL's Independent Baseline Function- Mobility Independent Current Functional Impairments (Reported) Functional Limitations- ADL's Needs assist to don compression LE garments. Needs assist for showers with built in seat and suction cup grab bars. Needs assist with washing and drying. Has a bidet attachment on her ADA height toilet. Bed has partial rail. Functional Limitations- Mobility/Gait Using QC for household walking at night. PT-OP-C Subjective Start: 03/04/22 08:38 Freq: Status: Active Protocol: Document 05/23/22 08:21 SP (Rec: 05/23/22 09:04 SP [id number]) OP-PT Subjective Patient Comments Patient Comments Pt states really please with gained ROM with this 2nd set of therapy continued. Patient Reported Progress Improving PT-OP-F Manual Assessment Start: 03/04/22 08:38 Freq: Status: Active Protocol: Document 03/04/22 15:15 AW (Rec: 03/05/22 17:50 AW [id number]) Manual Assessments Soft Tissue Assessment Soft Tissue Mobility Assessment Left UT, cervical paraspinals, lats, teres, rhomboids all with moderately increased density Joint Mobility Assessment Joint Mobility Assessment Not assessed due to fracture PT-OP-J Posture/Palpation/Skin Start: 03/04/22 08:38 Freq: Status: Active Protocol: Document 03/04/22 15:15 AW (Rec: 03/05/22 17:50 AW [id number]) Posture Evaluation Comments Posture Comments Left humerus sits inferiorly in the glenoid. Pt has moderate dowagers hump and forward head. Skin Assessment Other Assessments Skin Assessment Comments Scattered bruising remains - largely around elbow. PT-OP-K Range of Motion Start: 03/04/22 08:38 Freq: Status: Active Protocol: Document 05/07/22 09:50 SP (Rec: 05/07/22 10:35 SP [id number]) Shoulder Goniometric Range of Motion Shoulder R shld PROM Shoulder ROM WFL No Testing Position Supine Flexion 118 Abduction 103 External Rotation at 0 degrees Abduction 54 Comments 05/07/22: therapist supported, improved ABD post manual L shld AROM Shoulder ROM WFL No Testing Position Sitting Flexion 113 Extension 72 Abduction 99 External Rotation at 0 degrees Abduction 66 Internal Rotation Behind Back (text) T12 Comments 05/07/22 AROM seated except extension, measured in standing R shoulder Shoulder ROM WFL No Testing Position Sitting Flexion 59 Extension 34 Abduction 55 External Rotation at 0 degrees Abduction 20 Internal Rotation Behind Back (text) R buttocks Comments AROM seated PT-OP-Q Treatments Start: 03/04/22 08:38 Freq: Status: Active Protocol: Document 05/23/22 08:21 SP (Rec: 05/23/22 09:04 SP [id number]) Therapeutic Exercises Sitting Exercises seated shoulder kaylee AAROM flexion Sitting Exercise Name flexion, scaption, ABD Equipment Used use mirror for self corrections Reps/Minutes x 15 reps Comments cued no UT recruitment Standing Exercises IR stretch Standing Exercise Name added to HEP Side right Equipment Used towel assist with LUE, mirror self correcitons psoture Reps/Minutes x3 Comments good feedback ROM stretch into mid lumbar wall walking Standing Exercise Name inPT Side right Reps/Minutes x3 Comments challenged no UT recruit, continue in PT for now. IR Standing Exercise Name IR and eccentric ER stretch ROM Side right Resistance TB1 Equipment Used towel under arm Reps/Minutes 2x10 Comments HEP reviewed- cued posture/ scap retraction, head back CS ext neutral R Shld TB Standing Exercise Name B shld ext Resistance TB #1 Reps/Minutes x10 Comments cued tall posture, retraction isometrics Standing Exercise Name ER, IR, extension- HEP verbally reviewed Side left Resistance Pt states feel confident doing at home Reps/Minutes 10 hold x5 reps PT-OP-R Modalities Start: 03/04/22 08:38 Freq: Status: Active Protocol: Document 03/27/22 17:29 AMH (Rec: 03/27/22 17:29 AMH [id number]) Hot Pack/Cold Pack Treatment Cold Pack Location R shoulder/pec/bicep Patient Position Hooklying Treatment Duration (minutes) 10 Patient Tolerance Good Comments w/pillow support and towel roll under RUE PT-OP-T Assessment and Plan Start: 03/04/22 08:38 Freq: Status: Active Protocol: Document 05/23/22 08:21 SP (Rec: 05/23/22 09:04 SP [id number]) Physical Therapy Assessment Goals Four Impairment self-care and daily activities Rehabilitation Caseworker Goal (LTG) QuickDASH score 25% or less ( down from 68%). 04/15/22: progressing: pt states can put on support hose now, uses bed rail for in/out bed, just rinsing hair for now due to lack ROM and how long takes painful. LTG Duration 06/04/22 Three Impairment strength Short Term Goal (STG) Pt will lift her right arm to 75 degrees elevation in scaption plane 04/17/22 - Pt achieves 68 degrees elevation in scaption plane. STG Duration 04/08/22 Care Home Goal (LTG) Pt will use her right arm to lift and carry 10 pounds so she can carry groceries. 04/29/22: progressing: pt states uses LUE to support RUE carrying coffee pot but notices can carry more things now. LTG Duration 06/04/22 progressing 04/29/22 Two Impairment ROM Short Term Goal (STG) PROM right arm improved to 90 degrees in flexion and abduction. 04/15/22: progressing: PROM R shld FF 96deg, ABD 82 deg. STG Duration 04/08/22 progressing 04/15/22 Care Home Goal (LTG) AROM right arm improved to within 10 degrees of left arm in flexion and abduction. : progressing: AAROM supine FF 120 deg, LTG Duration 06/04/22 One Impairment lacks HEP Short Term Goal (STG) Pt will be instructed in HEP for ROM and strength (when appropriate) to support therapy services provided in clinic 04/15/22: R shld isometrics IR/ ER/Ext, AAROM wand supine, initiated table slides FF/ scaption/ER today. STG Duration 04/08/22 progressing 04/15/22 Care Home Goal (LTG) Pt will be independent with HEP for right arm ROM and strength to sustain therapy gains. 04/15/22: R shld isometrics IR/ ER/Ext, AAROM wand supine, initiated table slides FF/ scaption/ER today. 04/29/22: progressing occasional cues for posture/ form. LTG Duration 06/04/22 progressing 04/29/22 Assessment Summary Assessment Pt good response to pully with mirror visual feedback no UT recruit and will be ordering for home good self help. Pt occasional cues for posture/ form and eccentric control AAROM added to IR band HEP to allow gain in ER. Instruduced IR stretch with good almost painfree Physical Therapy Plan Frequency and Duration Frequency of Treatment 1-2x/week Plan of Care Start Date 03/04/22 Plan of Care End Date 06/04/22 Therapeutic Interventions Therapeutic Interventions Aquatic Therapy,Home Exercise Program,Manual Therapy, Neuromuscular Re-education, Self-Care/Home Management,Soft Tissue Mobilization,Taping, Therapeutic Activities, Therapeutic Exercises Modalities Cold Pack/Ice Massage,Electric Stimulation,Hot Packs Next Visit Focus/Plan Next Note Type Treatment Note Next Visit Plan Recheck shld ext w/scap retraction, isometric, pulleys , IR stretch w/ towel. Progress ROM. Assess response to standing AAROM. Possible assess and add eccentric ROM with TB if able. Continue STM to address R pec and periscapular tone.
--- NOTE | 2022-05-27 14:06 | PT.OTN ---
Current Diagnoses Weakness (05/27/22) 4-part fracture of surgical neck of right humerus, subsequent encounter for fracture with routine healing (05/27/22) Physical Therapy Treatment Note PT-OP-A Visit Information Start: 03/04/22 08:38 Freq: Status: Active Protocol: Document 05/27/22 13:04 AW (Rec: 05/27/22 14:05 AW [id number]) Out-Patient Physical Therapy Visit Information Visit Information Visit Type Progress Note Visit Start Time 13:00 Visit Stop Time 13:45 Total Visit Minutes 45 Visit Number 18 Number of THERAPIST Visits 0 Evaluation Information Evaluation Date 03/04/22 Precautions Precautions Ortho referral updated mid- March: no restrictions. 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 She denies any other falls and calls this incident a freak accident. She fell on her right shoulder and hit her head. She was evaluated in the ED. X-ray of the shoulder revealed displaced, comminuted humeral head/neck fracture with inferior subluxation at the glenohumeral joint space. CT of the head revealed right parietal scalp hematoma but was otherwise negative. She left ED in a shoulder sling and followed up with ortho who recommended non-operative treatment. She saw ortho yesterday and doctor was satisfied with healing. Celena is now wearing a shoulder sling only at night for the most part. She was in cardiac rehab but had to stop after this injury. She is right handed. 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 She is sleeping on her back (usually a side sleeper). Granddaughter Kala is assisting at home. Celena is considering Visiting [place] for assist once Kala leaves. Prior Treatments and Tests Prior PT for hip pain Future Testing and Treatments Planned Back to ortho for follow up on 03/31. Treatment Goals Patient/Caregiver Goals Hopes to get back to cardiac rehab. Get her arm working again. Prior Functional Status Baseline Function- ADL's Independent Baseline Function- Mobility Independent Current Functional Impairments (Reported) Functional Limitations- ADL's Needs assist to don compression LE garments. Needs assist for showers with built in seat and suction cup grab bars. Needs assist with washing and drying. Has a bidet attachment on her ADA height toilet. Bed has partial rail. Functional Limitations- Mobility/Gait Using QC for household walking at night. PT-OP-C Subjective Start: 03/04/22 08:38 Freq: Status: Active Protocol: Document 05/27/22 13:04 AW (Rec: 05/27/22 14:05 AW [id number]) OP-PT Subjective Patient Comments Patient Comments Pt states she is better able to lift her filled tea kettle from the sink to the hot plate with her right arm Patient Reported Progress Improving PT-OP-F Manual Assessment Start: 03/04/22 08:38 Freq: Status: Active Protocol: Document 03/04/22 15:15 AW (Rec: 03/05/22 17:50 AW [id number]) Manual Assessments Soft Tissue Assessment Soft Tissue Mobility Assessment Left UT, cervical paraspinals, lats, teres, rhomboids all with moderately increased density Joint Mobility Assessment Joint Mobility Assessment Not assessed due to fracture PT-OP-J Posture/Palpation/Skin Start: 03/04/22 08:38 Freq: Status: Active Protocol: Document 03/04/22 15:15 AW (Rec: 03/05/22 17:50 AW [id number]) Posture Evaluation Comments Posture Comments Left humerus sits inferiorly in the glenoid. Pt has moderate dowagers hump and forward head. Skin Assessment Other Assessments Skin Assessment Comments Scattered bruising remains - largely around elbow. PT-OP-K Range of Motion Start: 03/04/22 08:38 Freq: Status: Active Protocol: Document 05/07/22 09:50 SP (Rec: 05/07/22 10:35 SP [id number]) Shoulder Goniometric Range of Motion Shoulder R shld PROM Shoulder ROM WFL No Testing Position Supine Flexion 118 Abduction 103 External Rotation at 0 degrees Abduction 54 Comments 05/07/22: therapist supported, improved ABD post manual L shld AROM Shoulder ROM WFL No Testing Position Sitting Flexion 113 Extension 72 Abduction 99 External Rotation at 0 degrees Abduction 66 Internal Rotation Behind Back (text) T12 Comments 05/07/22 AROM seated except extension, measured in standing R shoulder Shoulder ROM WFL No Testing Position Sitting Flexion 59 Extension 34 Abduction 55 External Rotation at 0 degrees Abduction 20 Internal Rotation Behind Back (text) R buttocks Comments AROM seated PT-OP-Q Treatments Start: 03/04/22 08:38 Freq: Status: Active Protocol: Document 05/27/22 13:04 AW (Rec: 05/27/22 14:05 AW [id number]) Therapeutic Exercises Supine Exercises rhythmic stab Supine Exercise Name rhythmic stabilization Side right Equipment Used PT provides multidirectional force at varying lever arm lengths Reps/Minutes in 90 deg flexion Comments good control AAROM shoulder Supine Exercise Name flexion (HEP reviewed), habd added self Side right Equipment Used dowel Reps/Minutes x10 Comments eccentric flexion reps without dowel AAROM with dowel shoulder ER ([employer] wipers) Supine Exercise Name HEP review Side right Equipment Used dowel Reps/Minutes x 10 reps Comments cued keep elbow at side Sidelying Exercises abduction Sidelying Exercise Name abduction Side right Resistance AROM to 90 deg Reps/Minutes 2x5 Comments HEP 1 Sidelying Exercise Name ER AROM Side right Reps/Minutes 10 Comments partial Sitting Exercises AROM Sitting Exercise Name AAROM>AROM - flex, abd Side right Resistance PT assist for concentric abduction Comments focus on negative/ecc reps to build strength seated shoulder kaylee AAROM flexion Sitting Exercise Name flexion, scaption, ABD Equipment Used use mirror for self corrections Reps/Minutes x 15 reps Comments cued no UT recruitment Shoulder rolls Sitting Exercise Name Fwd/Bwd Side bilateral Reps/Minutes 15x each Comments vc PT-OP-R Modalities Start: 03/04/22 08:38 Freq: Status: Active Protocol: Document 03/27/22 17:29 AMH (Rec: 03/27/22 17:29 AMH [id number]) Hot Pack/Cold Pack Treatment Cold Pack Location R shoulder/pec/bicep Patient Position Hooklying Treatment Duration (minutes) 10 Patient Tolerance Good Comments w/pillow support and towel roll under RUE PT-OP-T Assessment and Plan Start: 03/04/22 08:38 Freq: Status: Active Protocol: Document 05/27/22 13:04 AW (Rec: 05/27/22 14:05 AW [id number]) Physical Therapy Assessment Goals Four Impairment self-care and daily activities Managed Care Analyst Goal (LTG) QuickDASH score 25% or less ( down from 68%). 04/15/22: progressing: pt states can put on support hose now, uses bed rail for in/out bed, just rinsing hair for now due to lack ROM and how long takes painful. 05/27/22 - Can shower and wash hair without increase in pain LTG Duration 08/05/22 Three Impairment strength Short Term Goal (STG) Pt will lift her right arm to 75 degrees elevation in scaption plane 04/17/22 - Pt achieves 68 degrees elevation in scaption plane. 05/27/22 - Same measurement today. No change STG Duration 04/08/22 Senior Care Goal (LTG) Pt will use her right arm to lift and carry 10 pounds so she can carry groceries. 04/29/22: progressing: pt states uses LUE to support RUE carrying coffee pot but notices can carry more things now. 05/27/22 - Can carry a basket weighing 5-8 pound. Can lift full tea kettle from sink to hotplate with right arm LTG Duration 08/05/22 Two Impairment ROM Short Term Goal (STG) PROM right arm improved to 90 degrees in flexion and abduction. 04/15/22: progressing: PROM R shld FF 96deg, ABD 82 deg. 05/27/22 - PROM: FF 108, abd 105 STG Duration 04/08/22 progressing 04/15/22 Senior Care Goal (LTG) AROM right arm improved to within 10 degrees of left arm in flexion and abduction. 04/29/22: progressing: AAROM supine FF 120 deg, 05/27/22 AROM abd 63, FF 72 LTG Duration 08/05/22 One Impairment lacks HEP Short Term Goal (STG) Pt will be instructed in HEP for ROM and strength (when appropriate) to support therapy services provided in clinic 04/15/22: R shld isometrics IR/ ER/Ext, AAROM wand supine, initiated table slides FF/ scaption/ER today. STG Duration 04/08/22 progressing 04/15/22 Managed Care Analyst Goal (LTG) Pt will be independent with HEP for right arm ROM and strength to sustain therapy gains. 04/15/22: R shld isometrics IR/ ER/Ext, AAROM wand supine, initiated table slides FF/ scaption/ER today. 04/29/22: progressing occasional cues for posture/ form. LTG Duration 08/05/22 Progress Towards Goals Progress Towards Goals Progressing Toward Goals,Slow Progress - Other Progress Comments PROM and AAROM improving steadity. AROM is lagging due to strength deficits. Celena would benefit from continued therapy to progress her strength to improve ease with functional tasks. Assessment Summary Assessment Added sidelying abduction to HEP today. Also focused on eccentric control of flexion and abduction in sitting. Celena will bring printouts of all exercises next visit to edit and weed out redunancies. Physical Therapy Plan Frequency and Duration Frequency of Treatment 1-2x/week Plan of Care Start Date 05/27/22 Plan of Care End Date 08/05/22 Therapeutic Interventions Therapeutic Interventions Aquatic Therapy,Home Exercise Program,Manual Therapy, Neuromuscular Re-education, Self-Care/Home Management,Soft Tissue Mobilization,Taping, Therapeutic Activities, Therapeutic Exercises Modalities Cold Pack/Ice Massage,Electric Stimulation,Hot Packs Next Visit Focus/Plan Next Note Type Treatment Note Next Visit Plan Continue to progress ROM. Focus on eccentric control in sitting and standing. Edit HEP if pt brings her handouts
--- NOTE | 2022-05-27 14:06 | PT.OPPOC ---
Physical, Occupational & Speech Therapy At [facility] Current Diagnoses Weakness (05/27/22) 4-part fracture of surgical neck of right humerus, subsequent encounter for fracture with routine healing (05/27/22) Visit Care Team Role Provider Type Jonn Rangel MD Family Provider Physician Primary Care Provider Specialty: Family Practice Address: [address] [place] [address], [id number] Email: [email or web address] Walker Lopes MD Attending Provider Physician Referring Provider Specialty: Orthopedics Orthopedic Surgery Address: [address] [place] [address], [id number] Email: [email or web address] Plan Of Care PT-OP-T Assessment and Plan Start: 03/04/22 08:38 Freq: Status: Active Protocol: Document 05/27/22 13:04 AW (Rec: 05/27/22 14:05 AW [id number]) Physical Therapy Assessment Goals Four Impairment self-care and daily activities Correction Goal (LTG) QuickDASH score 25% or less ( down from 68%). 04/15/22: progressing: pt states can put on support hose now, uses bed rail for in/out bed, just rinsing hair for now due to lack ROM and how long takes painful. 05/27/22 - Can shower and wash hair without increase in pain LTG Duration 08/05/22 Three Impairment strength Short Term Goal (STG) Pt will lift her right arm to 75 degrees elevation in scaption plane 04/17/22 - Pt achieves 68 degrees elevation in scaption plane. 05/27/22 - Same measurement today. No change STG Duration 04/08/22 Correction Goal (LTG) Pt will use her right arm to lift and carry 10 pounds so she can carry groceries. 04/29/22: progressing: pt states uses LUE to support RUE carrying coffee pot but notices can carry more things now. 05/27/22 - Can carry a basket weighing 5-8 pound. Can lift full tea kettle from sink to hotplate with right arm LTG Duration 08/05/22 Two Impairment ROM Short Term Goal (STG) PROM right arm improved to 90 degrees in flexion and abduction. 04/15/22: progressing: PROM R shld FF 96deg, ABD 82 deg. 05/27/22 - PROM: FF 108, abd 105 STG Duration 04/08/22 progressing 04/15/22 Correction Goal (LTG) AROM right arm improved to within 10 degrees of left arm in flexion and abduction. 04/29/22: progressing: AAROM supine FF 120 deg, 05/27/22 AROM abd 63, FF 72 LTG Duration 08/05/22 One Impairment lacks HEP Short Term Goal (STG) Pt will be instructed in HEP for ROM and strength (when appropriate) to support therapy services provided in clinic 04/15/22: R shld isometrics IR/ ER/Ext, AAROM wand supine, initiated table slides FF/ scaption/ER today. STG Duration 04/08/22 progressing 04/15/22 Correction Goal (LTG) Pt will be independent with HEP for right arm ROM and strength to sustain therapy gains. 04/15/22: R shld isometrics IR/ ER/Ext, AAROM wand supine, initiated table slides FF/ scaption/ER today. 04/29/22: progressing occasional cues for posture/ form. LTG Duration 08/05/22 Progress Towards Goals Progress Towards Goals Progressing Toward Goals,Slow Progress - Other Progress Comments PROM and AAROM improving steadity. AROM is lagging due to strength deficits. Celena would benefit from continued therapy to progress her strength to improve ease with functional tasks. Assessment Summary Assessment Added sidelying abduction to HEP today. Also focused on eccentric control of flexion and abduction in sitting. Celena will bring printouts of all exercises next visit to edit and weed out redunancies. Physical Therapy Plan Frequency and Duration Frequency of Treatment 1-2x/week Plan of Care Start Date 05/27/22 Plan of Care End Date 08/05/22 Therapeutic Interventions Therapeutic Interventions Aquatic Therapy,Home Exercise Program,Manual Therapy, Neuromuscular Re-education, Self-Care/Home Management,Soft Tissue Mobilization,Taping, Therapeutic Activities, Therapeutic Exercises Modalities Cold Pack/Ice Massage,Electric Stimulation,Hot Packs Next Visit Focus/Plan Next Note Type Treatment Note Next Visit Plan Continue to progress ROM. Focus on eccentric control in sitting and standing. Edit HEP if pt brings her handouts Plan of Care Dates Plan of Care Start Date 05/27/22 Plan of Care End Date 08/05/22 Electronically Signed by: Beryl Bello, ROGERIO 05/27/22 1423 If you are in agreement with this Plan of Care, please return a signed and dated copy. I have reviewed this Plan of Care and certify that the skilled therapy services above are required to meet the patient?s needs. Physician Signature Date Printed Name and Credentials Clinical Instructor Signature Printed Name and Credentials
--- NOTE | 2022-05-29 16:03 | PT.OTN ---
Current Diagnoses Weakness (05/29/22) 4-part fracture of surgical neck of right humerus, subsequent encounter for fracture with routine healing (05/29/22) Physical Therapy Treatment Note PT-OP-A Visit Information Start: 03/04/22 08:38 Freq: Status: Active Protocol: Document 05/29/22 14:10 AW (Rec: 05/29/22 16:03 AW [id number]) Out-Patient Physical Therapy Visit Information Visit Information Visit Type Treatment Note Visit Start Time 15:15 Visit Stop Time 16:00 Total Visit Minutes 45 Visit Number 19 Number of ELECTRONICS WORKER Visits 0 Precautions Precautions Ortho referral updated mid- March: no restrictions. 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 She denies any other falls and calls this incident a freak accident. She fell on her right shoulder and hit her head. She was evaluated in the ED. X-ray of the shoulder revealed displaced, comminuted humeral head/neck fracture with inferior subluxation at the glenohumeral joint space. CT of the head revealed right parietal scalp hematoma but was otherwise negative. She left ED in a shoulder sling and followed up with ortho who recommended non-operative treatment. She saw ortho yesterday and doctor was satisfied with healing. Celena is now wearing a shoulder sling only at night for the most part. She was in cardiac rehab but had to stop after this injury. She is right handed. 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 She is sleeping on her back (usually a side sleeper). Granddaughter Kala is assisting at home. Celena is considering Visiting [place] for assist once Kala leaves. Prior Treatments and Tests Prior PT for hip pain Future Testing and Treatments Planned Back to ortho for follow up on 03/31. Treatment Goals Patient/Caregiver Goals Hopes to get back to cardiac rehab. Get her arm working again. Prior Functional Status Baseline Function- ADL's Independent Baseline Function- Mobility Independent Current Functional Impairments (Reported) Functional Limitations- ADL's Needs assist to don compression LE garments. Needs assist for showers with built in seat and suction cup grab bars. Needs assist with washing and drying. Has a bidet attachment on her ADA height toilet. Bed has partial rail. Functional Limitations- Mobility/Gait Using QC for household walking at night. PT-OP-C Subjective Start: 03/04/22 08:38 Freq: Status: Active Protocol: Document 05/29/22 14:10 AW (Rec: 05/29/22 16:03 AW [id number]) OP-PT Subjective Patient Comments Patient Comments No new symptoms to report. Patient Reported Progress Improving PT-OP-F Manual Assessment Start: 03/04/22 08:38 Freq: Status: Active Protocol: Document 03/04/22 15:15 AW (Rec: 03/05/22 17:50 AW [id number]) Manual Assessments Soft Tissue Assessment Soft Tissue Mobility Assessment Left UT, cervical paraspinals, lats, teres, rhomboids all with moderately increased density Joint Mobility Assessment Joint Mobility Assessment Not assessed due to fracture PT-OP-J Posture/Palpation/Skin Start: 03/04/22 08:38 Freq: Status: Active Protocol: Document 03/04/22 15:15 AW (Rec: 03/05/22 17:50 AW [id number]) Posture Evaluation Comments Posture Comments Left humerus sits inferiorly in the glenoid. Pt has moderate dowagers hump and forward head. Skin Assessment Other Assessments Skin Assessment Comments Scattered bruising remains - largely around elbow. PT-OP-K Range of Motion Start: 03/04/22 08:38 Freq: Status: Active Protocol: Document 05/07/22 09:50 SP (Rec: 05/07/22 10:35 SP [id number]) Shoulder Goniometric Range of Motion Shoulder R shld PROM Shoulder ROM WFL No Testing Position Supine Flexion 118 Abduction 103 External Rotation at 0 degrees Abduction 54 Comments 05/07/22: therapist supported, improved ABD post manual L shld AROM Shoulder ROM WFL No Testing Position Sitting Flexion 113 Extension 72 Abduction 99 External Rotation at 0 degrees Abduction 66 Internal Rotation Behind Back (text) T12 Comments 05/07/22 AROM seated except extension, measured in standing R shoulder Shoulder ROM WFL No Testing Position Sitting Flexion 59 Extension 34 Abduction 55 External Rotation at 0 degrees Abduction 20 Internal Rotation Behind Back (text) R buttocks Comments AROM seated PT-OP-Q Treatments Start: 03/04/22 08:38 Freq: Status: Active Protocol: Document 05/29/22 14:10 AW (Rec: 05/29/22 16:03 AW [id number]) Therapeutic Exercises Supine Exercises rhythmic stab Supine Exercise Name rhythmic stabilization Side right Equipment Used PT provides multidirectional force at varying lever arm lengths Reps/Minutes in 90 deg flexion Comments good control Sidelying Exercises abduction Sidelying Exercise Name abduction Side right Resistance AROM to 90 deg Reps/Minutes 2x5 Comments HEP 1 Sidelying Exercise Name ER AROM Side right Reps/Minutes 10 Comments HEP Sitting Exercises AROM Sitting Exercise Name AAROM>AROM - flex, abd Side right Resistance PT assist for concentric abduction Comments focus on negative/ecc reps to build strength seated shoulder kaylee AAROM flexion Sitting Exercise Name flexion, scaption, ABD Equipment Used use mirror for self corrections Reps/Minutes x 15 reps Comments cued no UT recruitment Standing Exercises IR stretch Standing Exercise Name added to HEP Side right Equipment Used towel assist with LUE, mirror self correcitons psoture Reps/Minutes x3 Comments HEP R Shld TB Standing Exercise Name B shld ext Resistance TB #1 Reps/Minutes x10 Comments cued tall posture, retraction Self-Care/Home Management Treatment Education Patient Education Home Exercise Program Other Education Spent extra time today condensing Celena's HEP PT-OP-R Modalities Start: 03/04/22 08:38 Freq: Status: Active Protocol: Document 03/27/22 17:29 AMH (Rec: 03/27/22 17:29 AMH [id number]) Hot Pack/Cold Pack Treatment Cold Pack Location R shoulder/pec/bicep Patient Position Hooklying Treatment Duration (minutes) 10 Patient Tolerance Good Comments w/pillow support and towel roll under RUE PT-OP-T Assessment and Plan Start: 03/04/22 08:38 Freq: Status: Active Protocol: Document 05/29/22 14:10 AW (Rec: 05/29/22 16:03 AW [id number]) Physical Therapy Assessment Goals Four Impairment self-care and daily activities [employer] Goal (LTG) QuickDASH score 25% or less ( down from 68%). 04/15/22: progressing: pt states can put on support hose now, uses bed rail for in/out bed, just rinsing hair for now due to lack ROM and how long takes painful. 05/27/22 - Can shower and wash hair without increase in pain LTG Duration 08/05/22 Three Impairment strength Short Term Goal (STG) Pt will lift her right arm to 75 degrees elevation in scaption plane 04/17/22 - Pt achieves 68 degrees elevation in scaption plane. 05/27/22 - Same measurement today. No change STG Duration 04/08/22 [employer] Goal (LTG) Pt will use her right arm to lift and carry 10 pounds so she can carry groceries. 04/29/22: progressing: pt states uses LUE to support RUE carrying coffee pot but notices can carry more things now. 05/27/22 - Can carry a basket weighing 5-8 pound. Can lift full tea kettle from sink to hotplate with right arm LTG Duration 08/05/22 Two Impairment ROM Short Term Goal (STG) PROM right arm improved to 90 degrees in flexion and abduction. 04/15/22: progressing: PROM R shld FF 96deg, ABD 82 deg. 05/27/22 - PROM: FF 108, abd 105 STG Duration 04/08/22 progressing 04/15/22 [employer] Goal (LTG) AROM right arm improved to within 10 degrees of left arm in flexion and abduction. 04/29/22: progressing: AAROM supine FF 120 deg, 05/27/22 AROM abd 63, FF 72 LTG Duration 08/05/22 One Impairment lacks HEP Short Term Goal (STG) Pt will be instructed in HEP for ROM and strength (when appropriate) to support therapy services provided in clinic 04/15/22: R shld isometrics IR/ ER/Ext, AAROM wand supine, initiated table slides FF/ scaption/ER today. STG Duration 04/08/22 progressing 04/15/22 [employer] Goal (LTG) Pt will be independent with HEP for right arm ROM and strength to sustain therapy gains. 04/15/22: R shld isometrics IR/ ER/Ext, AAROM wand supine, initiated table slides FF/ scaption/ER today. 04/29/22: progressing occasional cues for posture/ form. LTG Duration 08/05/22 Assessment Summary Assessment Condensed HEP today and reviewed all for independent performance. Celena is likely approaching readiness to drop appointments to once weekly. Physical Therapy Plan Frequency and Duration Frequency of Treatment 1-2x/week Plan of Care Start Date 05/27/22 Plan of Care End Date 08/05/22 Therapeutic Interventions Therapeutic Interventions Aquatic Therapy,Home Exercise Program,Manual Therapy, Neuromuscular Re-education, Self-Care/Home Management,Soft Tissue Mobilization,Taping, Therapeutic Activities, Therapeutic Exercises Modalities Cold Pack/Ice Massage,Electric Stimulation,Hot Packs Next Visit Focus/Plan Next Note Type Treatment Note Next Visit Plan Continue to progress ROM. Focus on eccentric control in sitting and standing.
--- NOTE | 2022-06-03 12:23 | PT.OTN ---
Current Diagnoses Weakness (06/03/22) 4-part fracture of surgical neck of right humerus, subsequent encounter for fracture with routine healing (06/03/22) Physical Therapy Treatment Note PT-OP-A Visit Information Start: 03/04/22 08:38 Freq: Status: Active Protocol: Document 06/03/22 08:54 AW (Rec: 06/03/22 12:23 AW [id number]) Out-Patient Physical Therapy Visit Information Visit Information Visit Type Treatment Note Visit Start Time 11:15 Visit Stop Time 12:00 Total Visit Minutes 45 Visit Number 20 Number of CLOTHES DESIGNER Visits 0 Evaluation Information Evaluation Date 03/04/22 Precautions Precautions Ortho referral updated mid- March: no restrictions. 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 She denies any other falls and calls this incident a freak accident. She fell on her right shoulder and hit her head. She was evaluated in the ED. X-ray of the shoulder revealed displaced, comminuted humeral head/neck fracture with inferior subluxation at the glenohumeral joint space. CT of the head revealed right parietal scalp hematoma but was otherwise negative. She left ED in a shoulder sling and followed up with ortho who recommended non-operative treatment. She saw ortho yesterday and doctor was satisfied with healing. Celena is now wearing a shoulder sling only at night for the most part. She was in cardiac rehab but had to stop after this injury. She is right handed. 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 She is sleeping on her back (usually a side sleeper). Granddaughter Kala is assisting at home. Celena is considering Visiting [place] for assist once Kala leaves. Prior Treatments and Tests Prior PT for hip pain Future Testing and Treatments Planned Back to ortho for follow up on 03/31. Treatment Goals Patient/Caregiver Goals Hopes to get back to cardiac rehab. Get her arm working again. Prior Functional Status Baseline Function- ADL's Independent Baseline Function- Mobility Independent Current Functional Impairments (Reported) Functional Limitations- ADL's Needs assist to don compression LE garments. Needs assist for showers with built in seat and suction cup grab bars. Needs assist with washing and drying. Has a bidet attachment on her ADA height toilet. Bed has partial rail. Functional Limitations- Mobility/Gait Using QC for household walking at night. PT-OP-C Subjective Start: 03/04/22 08:38 Freq: Status: Active Protocol: Document 06/03/22 08:54 AW (Rec: 06/03/22 12:23 AW [id number]) OP-PT Subjective Patient Comments Patient Comments Pt is very pleased with overall progress. PT-OP-F Manual Assessment Start: 03/04/22 08:38 Freq: Status: Active Protocol: Document 03/04/22 15:15 AW (Rec: 03/05/22 17:50 AW [id number]) Manual Assessments Soft Tissue Assessment Soft Tissue Mobility Assessment Left UT, cervical paraspinals, lats, teres, rhomboids all with moderately increased density Joint Mobility Assessment Joint Mobility Assessment Not assessed due to fracture PT-OP-J Posture/Palpation/Skin Start: 03/04/22 08:38 Freq: Status: Active Protocol: Document 03/04/22 15:15 AW (Rec: 03/05/22 17:50 AW [id number]) Posture Evaluation Comments Posture Comments Left humerus sits inferiorly in the glenoid. Pt has moderate dowagers hump and forward head. Skin Assessment Other Assessments Skin Assessment Comments Scattered bruising remains - largely around elbow. PT-OP-K Range of Motion Start: 03/04/22 08:38 Freq: Status: Active Protocol: Document 05/07/22 09:50 SP (Rec: 05/07/22 10:35 SP [id number]) Shoulder Goniometric Range of Motion Shoulder R shld PROM Shoulder ROM WFL No Testing Position Supine Flexion 118 Abduction 103 External Rotation at 0 degrees Abduction 54 Comments 05/07/22: therapist supported, improved ABD post manual L shld AROM Shoulder ROM WFL No Testing Position Sitting Flexion 113 Extension 72 Abduction 99 External Rotation at 0 degrees Abduction 66 Internal Rotation Behind Back (text) T12 Comments 05/07/22 AROM seated except extension, measured in standing R shoulder Shoulder ROM WFL No Testing Position Sitting Flexion 59 Extension 34 Abduction 55 External Rotation at 0 degrees Abduction 20 Internal Rotation Behind Back (text) R buttocks Comments AROM seated PT-OP-Q Treatments Start: 03/04/22 08:38 Freq: Status: Active Protocol: Document 06/03/22 08:54 AW (Rec: 06/03/22 12:23 AW [id number]) Therapeutic Exercises Sidelying Exercises abduction Sidelying Exercise Name abduction Side right Resistance AROM to 90 deg Reps/Minutes 2x8 Comments HEP 1 Sidelying Exercise Name ER AROM Side right Reps/Minutes 10 Comments HEP Sitting Exercises AROM Sitting Exercise Name AAROM>AROM - flex, abd Side right Resistance less assist for AROM Comments focus on negative/ecc reps to build strength seated shoulder kaylee AAROM flexion Sitting Exercise Name flexion, scaption, ABD Equipment Used use mirror for self corrections Reps/Minutes x 15 reps Comments cued no UT recruitment Shoulder rolls Sitting Exercise Name Fwd/Bwd Side bilateral Reps/Minutes 15x each Comments vc Standing Exercises IR stretch Comments discussed performing with scarves R Shld TB Standing Exercise Name B shld ext Resistance TB #1 Reps/Minutes x10 Comments cued tall posture, retraction AAROM Standing Exercise Name AAROM - ext, scaption, abduction Side right Resistance wand Comments mod cues to reduce UT involvement Therapeutic Activity Therapeutic Activity lift and carry Name lift and carry Reps/Minutes 10 min Comments Lifting from waist height and knee height - 4 and 5 lb dumbbells. Lift and transfer weight. Lift and carry with BUE (hernandez walks). Manual Therapy Treatment Soft Tissue Mobilization biceps, f/a ext and flexors, UT, pec Mobilization Type Rolling,Strumming Intensity/Depth Moderate Body Position Hooklying Comments focus on pec and delt Joint Mobilizations GH Jt Joint R Direction posterior, inferior glide Grade II Body Position Hooklying Comments MWM abd and rotation PT-OP-R Modalities Start: 03/04/22 08:38 Freq: Status: Active Protocol: Document 03/27/22 17:29 AMH (Rec: 03/27/22 17:29 AMH [id number]) Hot Pack/Cold Pack Treatment Cold Pack Location R shoulder/pec/bicep Patient Position Hooklying Treatment Duration (minutes) 10 Patient Tolerance Good Comments w/pillow support and towel roll under RUE PT-OP-T Assessment and Plan Start: 03/04/22 08:38 Freq: Status: Active Protocol: Document 06/03/22 08:54 AW (Rec: 06/03/22 12:23 AW [id number]) Physical Therapy Assessment Goals Four Impairment self-care and daily activities Fpc Goal (LTG) QuickDASH score 25% or less ( down from 68%). 04/15/22: progressing: pt states can put on support hose now, uses bed rail for in/out bed, just rinsing hair for now due to lack ROM and how long takes painful. 05/27/22 - Can shower and wash hair without increase in pain LTG Duration 08/05/22 Three Impairment strength Short Term Goal (STG) Pt will lift her right arm to 75 degrees elevation in scaption plane 04/17/22 - Pt achieves 68 degrees elevation in scaption plane. 05/27/22 - Same measurement today. No change STG Duration 04/08/22 Fpc Goal (LTG) Pt will use her right arm to lift and carry 10 pounds so she can carry groceries. 04/29/22: progressing: pt states uses LUE to support RUE carrying coffee pot but notices can carry more things now. 05/27/22 - Can carry a basket weighing 5-8 pound. Can lift full tea kettle from sink to hotplate with right arm LTG Duration 08/05/22 Two Impairment ROM Short Term Goal (STG) PROM right arm improved to 90 degrees in flexion and abduction. 04/15/22: progressing: PROM R shld FF 96deg, ABD 82 deg. 05/27/22 - PROM: FF 108, abd 105 STG Duration 04/08/22 progressing 04/15/22 Fpc Goal (LTG) AROM right arm improved to within 10 degrees of left arm in flexion and abduction. 04/29/22: progressing: AAROM supine FF 120 deg, 05/27/22 AROM abd 63, FF 72 LTG Duration 08/05/22 One Impairment lacks HEP Short Term Goal (STG) Pt will be instructed in HEP for ROM and strength (when appropriate) to support therapy services provided in clinic 04/15/22: R shld isometrics IR/ ER/Ext, AAROM wand supine, initiated table slides FF/ scaption/ER today. STG Duration 04/08/22 progressing 04/15/22 Fpc Goal (LTG) Pt will be independent with HEP for right arm ROM and strength to sustain therapy gains. 04/15/22: R shld isometrics IR/ ER/Ext, AAROM wand supine, initiated table slides FF/ scaption/ER today. 04/29/22: progressing occasional cues for posture/ form. LTG Duration 08/05/22 Assessment Summary Assessment Celena is doing well and is able to lift her arm ~60-75 degrees with minor compensations. Focused on strength, carrying, and joint play today which pt tolerated without significant increase in pain. Physical Therapy Plan Frequency and Duration Frequency of Treatment 1-2x/week Plan of Care Start Date 05/27/22 Plan of Care End Date 08/05/22 Therapeutic Interventions Therapeutic Interventions Aquatic Therapy,Home Exercise Program,Manual Therapy, Neuromuscular Re-education, Self-Care/Home Management,Soft Tissue Mobilization,Taping, Therapeutic Activities, Therapeutic Exercises Modalities Cold Pack/Ice Massage,Electric Stimulation,Hot Packs Next Visit Focus/Plan Next Note Type Treatment Note Next Visit Plan Continue to progress ROM and strength. Eccentrics. Lifting and carrying.
--- NOTE | 2022-06-05 12:02 | PT.OTN ---
Current Diagnoses Weakness (06/05/22) 4-part fracture of surgical neck of right humerus, subsequent encounter for fracture with routine healing (06/05/22) Physical Therapy Treatment Note PT-OP-A Visit Information Start: 03/04/22 08:38 Freq: Status: Active Protocol: Document 06/05/22 11:19 AW (Rec: 06/05/22 12:01 AW [id number]) Out-Patient Physical Therapy Visit Information Visit Information Visit Type Treatment Note Visit Start Time 11:20 Visit Stop Time 12:00 Total Visit Minutes 40 Visit Number 21 Number of WIRE TECHNICIAN Visits 0 Evaluation Information Evaluation Date 03/04/22 Precautions Precautions Ortho referral updated mid- March: no restrictions. 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 She denies any other falls and calls this incident a freak accident. She fell on her right shoulder and hit her head. She was evaluated in the ED. X-ray of the shoulder revealed displaced, comminuted humeral head/neck fracture with inferior subluxation at the glenohumeral joint space. CT of the head revealed right parietal scalp hematoma but was otherwise negative. She left ED in a shoulder sling and followed up with ortho who recommended non-operative treatment. She saw ortho yesterday and doctor was satisfied with healing. Celena is now wearing a shoulder sling only at night for the most part. She was in cardiac rehab but had to stop after this injury. She is right handed. 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 She is sleeping on her back (usually a side sleeper). Granddaughter Kala is assisting at home. Celena is considering Visiting [place] for assist once Kala leaves. Prior Treatments and Tests Prior PT for hip pain Future Testing and Treatments Planned Back to ortho for follow up on 03/31. Treatment Goals Patient/Caregiver Goals Hopes to get back to cardiac rehab. Get her arm working again. Prior Functional Status Baseline Function- ADL's Independent Baseline Function- Mobility Independent Current Functional Impairments (Reported) Functional Limitations- ADL's Needs assist to don compression LE garments. Needs assist for showers with built in seat and suction cup grab bars. Needs assist with washing and drying. Has a bidet attachment on her ADA height toilet. Bed has partial rail. Functional Limitations- Mobility/Gait Using QC for household walking at night. PT-OP-C Subjective Start: 03/04/22 08:38 Freq: Status: Active Protocol: Document 06/05/22 11:19 AW (Rec: 06/05/22 12:01 AW [id number]) OP-PT Subjective Patient Comments Patient Comments Was more sore than usual after last treatment. Feeling ready for once weekly appointments. PT-OP-F Manual Assessment Start: 03/04/22 08:38 Freq: Status: Active Protocol: Document 03/04/22 15:15 AW (Rec: 03/05/22 17:50 AW [id number]) Manual Assessments Soft Tissue Assessment Soft Tissue Mobility Assessment Left UT, cervical paraspinals, lats, teres, rhomboids all with moderately increased density Joint Mobility Assessment Joint Mobility Assessment Not assessed due to fracture PT-OP-J Posture/Palpation/Skin Start: 03/04/22 08:38 Freq: Status: Active Protocol: Document 03/04/22 15:15 AW (Rec: 03/05/22 17:50 AW [id number]) Posture Evaluation Comments Posture Comments Left humerus sits inferiorly in the glenoid. Pt has moderate dowagers hump and forward head. Skin Assessment Other Assessments Skin Assessment Comments Scattered bruising remains - largely around elbow. PT-OP-K Range of Motion Start: 03/04/22 08:38 Freq: Status: Active Protocol: Document 05/07/22 09:50 SP (Rec: 05/07/22 10:35 SP [id number]) Shoulder Goniometric Range of Motion Shoulder R shld PROM Shoulder ROM WFL No Testing Position Supine Flexion 118 Abduction 103 External Rotation at 0 degrees Abduction 54 Comments 05/07/22: therapist supported, improved ABD post manual L shld AROM Shoulder ROM WFL No Testing Position Sitting Flexion 113 Extension 72 Abduction 99 External Rotation at 0 degrees Abduction 66 Internal Rotation Behind Back (text) T12 Comments 05/07/22 AROM seated except extension, measured in standing R shoulder Shoulder ROM WFL No Testing Position Sitting Flexion 59 Extension 34 Abduction 55 External Rotation at 0 degrees Abduction 20 Internal Rotation Behind Back (text) R buttocks Comments AROM seated PT-OP-Q Treatments Start: 03/04/22 08:38 Freq: Status: Active Protocol: Document 06/05/22 11:19 AW (Rec: 06/05/22 12:01 AW [id number]) Therapeutic Exercises Supine Exercises rhythmic stab Supine Exercise Name rhythmic stabilization Side right Equipment Used PT provides multidirectional force at varying lever arm lengths Reps/Minutes in 90 deg flexion Comments good control AAROM shoulder Supine Exercise Name flexion (HEP reviewed), habd added self Side right Equipment Used dowel Reps/Minutes x10 Comments eccentric flexion reps without dowel Sidelying Exercises abduction Sidelying Exercise Name abduction Side right Resistance AROM to 90 deg Reps/Minutes 2x8 Comments HEP 1 Sidelying Exercise Name ER AROM Side right Reps/Minutes 10 Comments HEP Manual Therapy Treatment Soft Tissue Mobilization biceps, f/a ext and flexors, UT, pec Mobilization Type Rolling,Strumming Intensity/Depth Moderate Body Position Hooklying Comments focus on pec and delt Joint Mobilizations GH Jt Joint R Direction posterior, inferior glide Grade II Body Position Hooklying Comments MWM abd and rotation PT-OP-R Modalities Start: 03/04/22 08:38 Freq: Status: Active Protocol: Document 03/27/22 17:29 AMH (Rec: 03/27/22 17:29 AMH [id number]) Hot Pack/Cold Pack Treatment Cold Pack Location R shoulder/pec/bicep Patient Position Hooklying Treatment Duration (minutes) 10 Patient Tolerance Good Comments w/pillow support and towel roll under RUE PT-OP-T Assessment and Plan Start: 03/04/22 08:38 Freq: Status: Active Protocol: Document 06/05/22 11:19 AW (Rec: 06/05/22 12:01 AW [id number]) Physical Therapy Assessment Goals Four Impairment self-care and daily activities Revenue Cycle Administrator Goal (LTG) QuickDASH score 25% or less ( down from 68%). 04/15/22: progressing: pt states can put on support hose now, uses bed rail for in/out bed, just rinsing hair for now due to lack ROM and how long takes painful. 05/27/22 - Can shower and wash hair without increase in pain LTG Duration 08/05/22 Three Impairment strength Short Term Goal (STG) Pt will lift her right arm to 75 degrees elevation in scaption plane 04/17/22 - Pt achieves 68 degrees elevation in scaption plane. 05/27/22 - Same measurement today. No change STG Duration 04/08/22 Revenue Cycle Administrator Goal (LTG) Pt will use her right arm to lift and carry 10 pounds so she can carry groceries. 04/29/22: progressing: pt states uses LUE to support RUE carrying coffee pot but notices can carry more things now. 05/27/22 - Can carry a basket weighing 5-8 pound. Can lift full tea kettle from sink to hotplate with right arm LTG Duration 08/05/22 Two Impairment ROM Short Term Goal (STG) PROM right arm improved to 90 degrees in flexion and abduction. 04/15/22: progressing: PROM R shld FF 96deg, ABD 82 deg. 05/27/22 - PROM: FF 108, abd 105 STG Duration 04/08/22 progressing 04/15/22 Mcc Goal (LTG) AROM right arm improved to within 10 degrees of left arm in flexion and abduction. 04/29/22: progressing: AAROM supine FF 120 deg, 05/27/22 AROM abd 63, FF 72 LTG Duration 08/05/22 One Impairment lacks HEP Short Term Goal (STG) Pt will be instructed in HEP for ROM and strength (when appropriate) to support therapy services provided in clinic 04/15/22: R shld isometrics IR/ ER/Ext, AAROM wand supine, initiated table slides FF/ scaption/ER today. STG Duration 04/08/22 progressing 04/15/22 Mcc Goal (LTG) Pt will be independent with HEP for right arm ROM and strength to sustain therapy gains. 04/15/22: R shld isometrics IR/ ER/Ext, AAROM wand supine, initiated table slides FF/ scaption/ER today. 04/29/22: progressing occasional cues for posture/ form. LTG Duration 08/05/22 Assessment Summary Assessment Pt was more sore than usual today. Focused on STM for pain management, joint mobs, and ROM exercises. Physical Therapy Plan Frequency and Duration Frequency of Treatment 1-2x/week Plan of Care Start Date 05/27/22 Plan of Care End Date 08/05/22 Therapeutic Interventions Therapeutic Interventions Aquatic Therapy,Home Exercise Program,Manual Therapy, Neuromuscular Re-education, Self-Care/Home Management,Soft Tissue Mobilization,Taping, Therapeutic Activities, Therapeutic Exercises Modalities Cold Pack/Ice Massage,Electric Stimulation,Hot Packs Next Visit Focus/Plan Next Note Type Treatment Note Next Visit Plan Continue to progress ROM and strength. Eccentrics. Lifting and carrying. STM prn for pain management. Joint mobs for ROM [id number]
--- NOTE | 2022-06-13 10:30 | PT.OTN ---
Current Diagnoses Weakness (06/13/22) 4-part fracture of surgical neck of right humerus, subsequent encounter for fracture with routine healing (06/13/22) Physical Therapy Treatment Note PT-OP-A Visit Information Start: 03/04/22 08:38 Freq: Status: Active Protocol: Document 06/13/22 09:52 SP (Rec: 06/13/22 10:34 SP [id number]) Out-Patient Physical Therapy Visit Information Visit Information Visit Type Treatment Note Visit Note NEYDA Luciano assisted in HEP review instruction with cuing feedback as needed while under supervision and direction of CHARLIE Stinson. Visit Start Time 09:52 Visit Stop Time 10:30 Total Visit Minutes 38 Visit Number 22 Number of DUCT LAYER SUPERVISOR Visits 1 PT-OP-B Current Condition Start: 03/04/22 08:38 Freq: Status: Active Protocol: Document 03/04/22 15:15 AW (Rec: 03/04/22 08:49 AW [id number]) Current Condition History of Current Condition Onset Date 01/28/22 Current Complaints right shoulder pain and stiffness after proximal humerus fracture History of Current Condition Celena was touring [employer] in January when she opened a door and fell down 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 She denies any other falls and calls this incident a freak accident. She fell on her right shoulder and hit her head. She was evaluated in the ED. X-ray of the shoulder revealed displaced, comminuted humeral head/neck fracture with inferior subluxation at the glenohumeral joint space. CT of the head revealed right parietal scalp hematoma but was otherwise negative. She left ED in a shoulder sling and followed up with ortho who recommended non-operative treatment. She saw ortho yesterday and doctor was satisfied with healing. Celena is now wearing a shoulder sling only at night for the most part. She was in cardiac rehab but had to stop after this injury. She is right handed. 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 She is sleeping on her back (usually a side sleeper). Granddaughter Kala is assisting at home. Celena is considering Visiting [place] for assist once Kala leaves. Prior Treatments and Tests Prior PT for hip pain Future Testing and Treatments Planned Back to ortho for follow up on 03/31. Treatment Goals Patient/Caregiver Goals Hopes to get back to cardiac rehab. Get her arm working again. Prior Functional Status Baseline Function- ADL's Independent Baseline Function- Mobility Independent Current Functional Impairments (Reported) Functional Limitations- ADL's Needs assist to don compression LE garments. Needs assist for showers with built in seat and suction cup grab bars. Needs assist with washing and drying. Has a bidet attachment on her ADA height toilet. Bed has partial rail. Functional Limitations- Mobility/Gait Using QC for household walking at night. PT-OP-C Subjective Start: 03/04/22 08:38 Freq: Status: Active Protocol: Document 06/13/22 09:52 SP (Rec: 06/13/22 10:34 SP [id number]) OP-PT Subjective Patient Comments Patient Comments Celena reports she is feeling good today and is happy with the once a week sessions. Discussed HEP handout. PT-OP-F Manual Assessment Start: 03/04/22 08:38 Freq: Status: Active Protocol: Document 03/04/22 15:15 AW (Rec: 03/05/22 17:50 AW [id number]) Manual Assessments Soft Tissue Assessment Soft Tissue Mobility Assessment Left UT, cervical paraspinals, lats, teres, rhomboids all with moderately increased density Joint Mobility Assessment Joint Mobility Assessment Not assessed due to fracture PT-OP-J Posture/Palpation/Skin Start: 03/04/22 08:38 Freq: Status: Active Protocol: Document 03/04/22 15:15 AW (Rec: 03/05/22 17:50 AW [id number]) Posture Evaluation Comments Posture Comments Left humerus sits inferiorly in the glenoid. Pt has moderate dowagers hump and forward head. Skin Assessment Other Assessments Skin Assessment Comments Scattered bruising remains - largely around elbow. PT-OP-K Range of Motion Start: 03/04/22 08:38 Freq: Status: Active Protocol: Document 05/07/22 09:50 SP (Rec: 05/07/22 10:35 SP [id number]) Shoulder Goniometric Range of Motion Shoulder R shld PROM Shoulder ROM WFL No Testing Position Supine Flexion 118 Abduction 103 External Rotation at 0 degrees Abduction 54 Comments 05/07/22: therapist supported, improved ABD post manual L shld AROM Shoulder ROM WFL No Testing Position Sitting Flexion 113 Extension 72 Abduction 99 External Rotation at 0 degrees Abduction 66 Internal Rotation Behind Back (text) T12 Comments 05/07/22 AROM seated except extension, measured in standing R shoulder Shoulder ROM WFL No Testing Position Sitting Flexion 59 Extension 34 Abduction 55 External Rotation at 0 degrees Abduction 20 Internal Rotation Behind Back (text) R buttocks Comments AROM seated PT-OP-Q Treatments Start: 03/04/22 08:38 Freq: Status: Active Protocol: Document 06/13/22 09:52 SP (Rec: 06/13/22 10:34 SP [id number]) Therapeutic Exercises Supine Exercises Shoulder ABC's Supine Exercise Name Shoulder flexion to 90 deg Side right Resistance 1# DB>no DB Reps/Minutes A to Z Comments Rest as needed, fatigued quickly with 1# DB Sidelying Exercises Shoulder ER Side right Resistance AROM Reps/Minutes 2x10 Comments Towel for tactile cues, HEP abduction Sidelying Exercise Name abduction Side right Resistance AROM to 90 deg Reps/Minutes 1x20 Comments HEP Sitting Exercises seated shoulder kaylee AAROM flexion Sitting Exercise Name flexion, scaption, ABD Resistance image for acquiring one online vs HEMALATHA help make. Equipment Used use mirror for self corrections Reps/Minutes x 15 reps, hold for 3 breaths Comments ed for awareness no UT recuitment Standing Exercises IR Standing Exercise Name IR and eccentric ER stretch ROM Side right Resistance TB1 Equipment Used towel under arm Reps/Minutes 2x10 Comments HEP reviewed- cued posture/ scap retraction, head back CS ext neutral Manual Therapy Treatment Soft Tissue Mobilization biceps, f/a ext and flexors, UT, pec Mobilization Type Rolling,Strumming Intensity/Depth Moderate Body Position Hooklying Comments focus on pec and delt Joint Mobilizations scapulothoracic Joint L Direction inferior, down rotation Grade II Body Position side Comments manual, good feedback- tight resistant to downward rotation . GH Jt Joint R Direction posterior, inferior glide Grade II Body Position Hooklying Comments MWM abd and rotation PT-OP-R Modalities Start: 03/04/22 08:38 Freq: Status: Active Protocol: Document 03/27/22 17:29 AMH (Rec: 03/27/22 17:29 AMH [id number]) Hot Pack/Cold Pack Treatment Cold Pack Location R shoulder/pec/bicep Patient Position Hooklying Treatment Duration (minutes) 10 Patient Tolerance Good Comments w/pillow support and towel roll under RUE PT-OP-T Assessment and Plan Start: 03/04/22 08:38 Freq: Status: Active Protocol: Document 06/13/22 09:52 SP (Rec: 06/13/22 10:34 SP [id number]) Physical Therapy Assessment Goals Four Impairment self-care and daily activities Custodial Goal (LTG) QuickDASH score 25% or less ( down from 68%). 04/15/22: progressing: pt states can put on support hose now, uses bed rail for in/out bed, just rinsing hair for now due to lack ROM and how long takes painful. 05/27/22 - Can shower and wash hair without increase in pain LTG Duration 08/05/22 Three Impairment strength Short Term Goal (STG) Pt will lift her right arm to 75 degrees elevation in scaption plane 04/17/22 - Pt achieves 68 degrees elevation in scaption plane. 05/27/22 - Same measurement today. No change STG Duration 04/08/22 Custodial Goal (LTG) Pt will use her right arm to lift and carry 10 pounds so she can carry groceries. 04/29/22: progressing: pt states uses LUE to support RUE carrying coffee pot but notices can carry more things now. 05/27/22 - Can carry a basket weighing 5-8 pound. Can lift full tea kettle from sink to hotplate with right arm LTG Duration 08/05/22 Two Impairment ROM Short Term Goal (STG) PROM right arm improved to 90 degrees in flexion and abduction. 04/15/22: progressing: PROM R shld FF 96deg, ABD 82 deg. 05/27/22 - PROM: FF 108, abd 105 STG Duration 04/08/22 progressing 04/15/22 Custodial Goal (LTG) AROM right arm improved to within 10 degrees of left arm in flexion and abduction. 04/29/22: progressing: AAROM supine FF 120 deg, 05/27/22 AROM abd 63, FF 72 LTG Duration 08/05/22 One Impairment lacks HEP Short Term Goal (STG) Pt will be instructed in HEP for ROM and strength (when appropriate) to support therapy services provided in clinic 04/15/22: R shld isometrics IR/ ER/Ext, AAROM wand supine, initiated table slides FF/ scaption/ER today. STG Duration 04/08/22 progressing 04/15/22 Custodial Goal (LTG) Pt will be independent with HEP for right arm ROM and strength to sustain therapy gains. 04/15/22: R shld isometrics IR/ ER/Ext, KAMILA wand supine, initiated table slides FF/ scaption/ER today. 04/29/22: progressing occasional cues for posture/ form. LTG Duration 08/05/22 Assessment Summary Assessment Pt good feedback to manual and review instruction of HEP, cues as needed for arm alignment, reviewed kaylee use for gaining self way to ROM OH seated, image provided for assist acquiring for home use thinks would be helpful.
--- NOTE | 2022-06-18 11:20 | PT.OTN ---
Current Diagnoses Weakness (06/18/22) 4-part fracture of surgical neck of right humerus, subsequent encounter for fracture with routine healing (06/18/22) Physical Therapy Treatment Note PT-OP-A Visit Information Start: 03/04/22 08:38 Freq: Status: Active Protocol: Document 06/18/22 10:26 TS (Rec: 06/18/22 11:48 TS [id number]) Out-Patient Physical Therapy Visit Information Visit Information Visit Type Treatment Note Visit Note HOLLIJuan Carlos Luciano performed ther ex and manual therapy while under supervision and direction of CHARLIE Stinson. Visit Start Time 10:35 Visit Stop Time 11:20 Total Visit Minutes 45 Visit Number 23 Number of CUTTER HEAD SHARPENER Visits 2 PT-OP-B Current Condition Start: 03/04/22 08:38 Freq: Status: Active Protocol: Document 03/04/22 15:15 AW (Rec: 03/04/22 08:49 AW [id number]) Current Condition History of Current Condition Onset Date 01/28/22 Current Complaints right shoulder pain and stiffness after proximal humerus fracture History of Current Condition 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 She denies any other falls and calls this incident a freak accident. She fell on her right shoulder and hit her head. She was evaluated in the ED. X-ray of the shoulder revealed displaced, comminuted humeral head/neck fracture with inferior subluxation at the glenohumeral joint space. CT of the head revealed right parietal scalp hematoma but was otherwise negative. She left ED in a shoulder sling and followed up with ortho who recommended non-operative treatment. She saw ortho yesterday and doctor was satisfied with healing. Celena is now wearing a shoulder sling only at night for the most part. She was in cardiac rehab but had to stop after this injury. She is right handed. 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 She is sleeping on her back (usually a side sleeper). Granddaughter Kala is assisting at home. Celena is considering Visiting [employer] for assist once Kala leaves. Prior Treatments and Tests Prior PT for hip pain Future Testing and Treatments Planned Back to ortho for follow up on 03/31. Treatment Goals Patient/Caregiver Goals Hopes to get back to cardiac rehab. Get her arm working again. Prior Functional Status Baseline Function- ADL's Independent Baseline Function- Mobility Independent Current Functional Impairments (Reported) Functional Limitations- ADL's Needs assist to don compression LE garments. Needs assist for showers with built in seat and suction cup grab bars. Needs assist with washing and drying. Has a bidet attachment on her ADA height toilet. Bed has partial rail. Functional Limitations- Mobility/Gait Using QC for household walking at night. PT-OP-C Subjective Start: 03/04/22 08:38 Freq: Status: Active Protocol: Document 06/18/22 10:26 TS (Rec: 06/18/22 11:48 TS [id number]) OP-PT Subjective Patient Comments Patient Comments Pt reports her shoulder is feeling good but has some tenderness maybe due to lots of chopping while making soup on Thursday. PT-OP-F Manual Assessment Start: 03/04/22 08:38 Freq: Status: Active Protocol: Document 03/04/22 15:15 AW (Rec: 03/05/22 17:50 AW [id number]) Manual Assessments Soft Tissue Assessment Soft Tissue Mobility Assessment Left UT, cervical paraspinals, lats, teres, rhomboids all with moderately increased density Joint Mobility Assessment Joint Mobility Assessment Not assessed due to fracture PT-OP-J Posture/Palpation/Skin Start: 03/04/22 08:38 Freq: Status: Active Protocol: Document 03/04/22 15:15 AW (Rec: 03/05/22 17:50 AW [id number]) Posture Evaluation Comments Posture Comments Left humerus sits inferiorly in the glenoid. Pt has moderate dowagers hump and forward head. Skin Assessment Other Assessments Skin Assessment Comments Scattered bruising remains - largely around elbow. PT-OP-K Range of Motion Start: 03/04/22 08:38 Freq: Status: Active Protocol: Document 05/07/22 09:50 SP (Rec: 05/07/22 10:35 SP [id number]) Shoulder Goniometric Range of Motion Shoulder R shld PROM Shoulder ROM WFL No Testing Position Supine Flexion 118 Abduction 103 External Rotation at 0 degrees Abduction 54 Comments 05/07/22: therapist supported, improved ABD post manual L shld AROM Shoulder ROM WFL No Testing Position Sitting Flexion 113 Extension 72 Abduction 99 External Rotation at 0 degrees Abduction 66 Internal Rotation Behind Back (text) T12 Comments 05/07/22 AROM seated except extension, measured in standing R shoulder Shoulder ROM WFL No Testing Position Sitting Flexion 59 Extension 34 Abduction 55 External Rotation at 0 degrees Abduction 20 Internal Rotation Behind Back (text) R buttocks Comments AROM seated PT-OP-Q Treatments Start: 03/04/22 08:38 Freq: Status: Active Protocol: Document 06/18/22 10:26 TS (Rec: 06/18/22 11:48 TS [id number]) Therapeutic Exercises Supine Exercises Shoulder ABC's Supine Exercise Name Shoulder flexion to 90 deg Side right Resistance AROM Reps/Minutes A to Z Comments Rest as needed, fatigued quickly with 1# DB Standing Exercises bicep curl Standing Exercise Name added to HEP Side right Resistance #5 DB Equipment Used free standing vs back to wall Reps/Minutes 2x4 reps Comments cued scap retraction/ depression stabilization con/ eccentric Manual Therapy Treatment Soft Tissue Mobilization biceps, f/a ext and flexors, UT, pec Mobilization Type Rolling,Strumming Intensity/Depth Moderate Body Position Hooklying Comments focus on pec and delt Joint Mobilizations scapulothoracic Joint L Direction inferior, down rotation Grade II Body Position side Comments manual, good feedback GH Jt Joint R Direction posterior, inferior glide Grade II Body Position Hooklying Comments MWM abd and rotation Self-Care/Home Management Treatment Education Patient Education Body Mechanics,Pain Management ,Posture Other Education Time spent log roll technique for use of LUE support of have to sit up on R side, Initiated biceps mechanics for lifitng and pouring tea kettle funcitonal task. PT-OP-R Modalities Start: 03/04/22 08:38 Freq: Status: Active Protocol: Document 03/27/22 17:29 AMH (Rec: 03/27/22 17:29 AMH [id number]) Hot Pack/Cold Pack Treatment Cold Pack Location R shoulder/pec/bicep Patient Position Hooklying Treatment Duration (minutes) 10 Patient Tolerance Good Comments w/pillow support and towel roll under RUE PT-OP-T Assessment and Plan Start: 03/04/22 08:38 Freq: Status: Active Protocol: Document 06/18/22 10:26 TS (Rec: 06/18/22 11:48 TS [id number]) Physical Therapy Assessment Goals Four Impairment self-care and daily activities Group Home Goal (LTG) QuickDASH score 25% or less ( down from 68%). 04/15/22: progressing: pt states can put on support hose now, uses bed rail for in/out bed, just rinsing hair for now due to lack ROM and how long takes painful. 05/27/22 - Can shower and wash hair without increase in pain LTG Duration 08/05/22 Three Impairment strength Short Term Goal (STG) Pt will lift her right arm to 75 degrees elevation in scaption plane 04/17/22 - Pt achieves 68 degrees elevation in scaption plane. 05/27/22 - Same measurement today. No change 06/18/22: standin deg R shld STG Duration 04/08/22 progressing: Core Winder Machine Operator Goal (LTG) Pt will use her right arm to lift and carry 10 pounds so she can carry groceries. 04/29/22: progressing: pt states uses LUE to support RUE carrying coffee pot but notices can carry more things now. 05/27/22 - Can carry a basket weighing 5-8 pound. Can lift full tea kettle from sink to hotplate with right arm. - PT lifted 5# DB simulating lifting and pooring out from tea kettle. LTG Duration 08/05/22 Two Impairment ROM Short Term Goal (STG) PROM right arm improved to 90 degrees in flexion and abduction. 04/15/22: progressing: PROM R shld FF 96deg, ABD 82 deg. 05/27/22 - PROM: FF 108, abd 105 06/18/22: progressing; seated: AAROM FF: 90 deg, ABD: 101; seated PROM: FF 120, ABD 125; supine PROM FF 128deg, ABD 119 deg. STG Duration 04/08/22 progressing 06/18/22 Group Home Goal (LTG) AROM right arm improved to within 10 degrees of left arm in flexion and abduction. 04/29/22: progressing: AAROM supine FF 120 deg, 05/27/22 AROM abd 63, FF 72 LTG Duration 08/05/22 One Impairment lacks HEP Short Term Goal (STG) Pt will be instructed in HEP for ROM and strength (when appropriate) to support therapy services provided in clinic 04/15/22: R shld isometrics IR/ ER/Ext, AAROM wand supine, initiated table slides FF/ scaption/ER today. STG Duration 04/08/22 progressing 04/15/22 Core Winder Machine Operator Goal (LTG) Pt will be independent with HEP for right arm ROM and strength to sustain therapy gains. 04/15/22: R shld isometrics IR/ ER/Ext, KAMILA leon supine, initiated table slides FF/ scaption/ER today. 04/29/22: progressing occasional cues for posture/ form. LTG Duration 08/05/22 Progress Towards Goals Progress Towards Goals Progressing Toward Goals,Slow Progress - Other Assessment Summary Assessment Pt improved PROM Flex in supine from 108 to 120 seated 128 supine, PROM ABD improved from 105 to 125 seated and 119 supine. Pts scaption ROM decreased from previous session to 55 deg in standing. Pt required cueing for DB biceps exercise to limit motion of shoulder elevation, performed against wall to limit compensations. She demonstrates increased strength in R arm with lifting 5# DB for tea kettle exercise . Pt will continued to benefit from continued skilled intervention to increase ROM Physical Therapy Plan Therapeutic Interventions Therapeutic Interventions Aquatic Therapy,Home Exercise Program,Manual Therapy, Neuromuscular Re-education, Self-Care/Home Management,Soft Tissue Mobilization,Taping, Therapeutic Activities, Therapeutic Exercises Modalities Cold Pack/Ice Massage,Electric Stimulation,Hot Packs Next Visit Focus/Plan Next Note Type Treatment Note Next Visit Plan Continue to progress ROM and strength. Assess bicep curls. Eccentrics. Lifting and carrying. STM prn for pain management. Joint mobs for ROM .
--- NOTE | 2022-06-24 11:16 | PT.OTN ---
Current Diagnoses Weakness (06/24/22) 4-part fracture of surgical neck of right humerus, subsequent encounter for fracture with routine healing (06/24/22) Physical Therapy Treatment Note PT-OP-A Visit Information Start: 03/04/22 08:38 Freq: Status: Active Protocol: Document 06/24/22 10:33 AW (Rec: 06/24/22 11:15 AW [id number]) Out-Patient Physical Therapy Visit Information Visit Information Visit Type Treatment Note Visit Start Time 10:35 Visit Stop Time 11:15 Total Visit Minutes 40 Visit Number 24 Number of COMMERCIAL LINES ACCOUNT EXECUTIVE Visits 0 Evaluation Information Evaluation Date 03/04/22 PT-OP-B Current Condition Start: 03/04/22 08:38 Freq: Status: Active Protocol: Document 03/04/22 15:15 AW (Rec: 03/04/22 08:49 AW [id number]) Current Condition History of Current Condition Onset Date 01/28/22 Current Complaints right shoulder pain and stiffness after proximal humerus fracture History of Current Condition 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 She denies any other falls and calls this incident a freak accident. She fell on her right shoulder and hit her head. She was evaluated in the ED. X-ray of the shoulder revealed displaced, comminuted humeral head/neck fracture with inferior subluxation at the glenohumeral joint space. CT of the head revealed right parietal scalp hematoma but was otherwise negative. She left ED in a shoulder sling and followed up with ortho who recommended non-operative treatment. She saw ortho yesterday and doctor was satisfied with healing. Celena is now wearing a shoulder sling only at night for the most part. She was in cardiac rehab but had to stop after this injury. She is right handed. 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 She is sleeping on her back (usually a side sleeper). Granddaughter Kala is assisting at home. Celena is considering Visiting [employer] for assist once Kala leaves. Prior Treatments and Tests Prior PT for hip pain Future Testing and Treatments Planned Back to ortho for follow up on 03/31. Treatment Goals Patient/Caregiver Goals Hopes to get back to cardiac rehab. Get her arm working again. Prior Functional Status Baseline Function- ADL's Independent Baseline Function- Mobility Independent Current Functional Impairments (Reported) Functional Limitations- ADL's Needs assist to don compression LE garments. Needs assist for showers with built in seat and suction cup grab bars. Needs assist with washing and drying. Has a bidet attachment on her ADA height toilet. Bed has partial rail. Functional Limitations- Mobility/Gait Using QC for household walking at night. PT-OP-C Subjective Start: 03/04/22 08:38 Freq: Status: Active Protocol: Document 06/24/22 10:33 AW (Rec: 06/24/22 11:15 AW [id number]) OP-PT Subjective Patient Comments Patient Comments Celena was pretty sore after last treatment, wonders if resisted biceps curl might have been a little too much. Saw Dr. Lopes yesterday who was pleased with progress and had no concerns. advised Celena she may not regain full ROM but encouraged her to focus on functional ROM. PT-OP-F Manual Assessment Start: 03/04/22 08:38 Freq: Status: Active Protocol: Document 03/04/22 15:15 AW (Rec: 03/05/22 17:50 AW [id number]) Manual Assessments Soft Tissue Assessment Soft Tissue Mobility Assessment Left UT, cervical paraspinals, lats, teres, rhomboids all with moderately increased density Joint Mobility Assessment Joint Mobility Assessment Not assessed due to fracture PT-OP-J Posture/Palpation/Skin Start: 03/04/22 08:38 Freq: Status: Active Protocol: Document 03/04/22 15:15 AW (Rec: 03/05/22 17:50 AW [id number]) Posture Evaluation Comments Posture Comments Left humerus sits inferiorly in the glenoid. Pt has moderate dowagers hump and forward head. Skin Assessment Other Assessments Skin Assessment Comments Scattered bruising remains - largely around elbow. PT-OP-K Range of Motion Start: 03/04/22 08:38 Freq: Status: Active Protocol: Document 05/07/22 09:50 SP (Rec: 05/07/22 10:35 SP [id number]) Shoulder Goniometric Range of Motion Shoulder R shld PROM Shoulder ROM WFL No Testing Position Supine Flexion 118 Abduction 103 External Rotation at 0 degrees Abduction 54 Comments 05/07/22: therapist supported, improved ABD post manual L shld AROM Shoulder ROM WFL No Testing Position Sitting Flexion 113 Extension 72 Abduction 99 External Rotation at 0 degrees Abduction 66 Internal Rotation Behind Back (text) T12 Comments 05/07/22 AROM seated except extension, measured in standing R shoulder Shoulder ROM WFL No Testing Position Sitting Flexion 59 Extension 34 Abduction 55 External Rotation at 0 degrees Abduction 20 Internal Rotation Behind Back (text) R buttocks Comments AROM seated PT-OP-Q Treatments Start: 03/04/22 08:38 Freq: Status: Active Protocol: Document 06/24/22 10:33 AW (Rec: 06/24/22 11:15 AW [id number]) Therapeutic Exercises Supine Exercises Shoulder ABC's Supine Exercise Name Shoulder flexion to 90 deg Side right Resistance AROM Reps/Minutes A to Z Comments Rest as needed, fatigued quickly with 1# DB rhythmic stab Supine Exercise Name rhythmic stabilization Side right Equipment Used PT provides multidirectional force at varying lever arm lengths Reps/Minutes in 90 deg flexion Comments good control flexion Supine Exercise Name AAROM into flexion AROM controlling eccentric descent Reps/Minutes x8 reps Comments good slow eccentric descent form with elbow straight Sidelying Exercises Shoulder ER Side right Resistance AROM Reps/Minutes 2x10 Comments Towel for tactile cues, HEP abduction Sidelying Exercise Name abduction Side right Resistance AROM to 90 deg Reps/Minutes 1x20 Comments HEP Sitting Exercises seated shoulder kaylee AAROM flexion Sitting Exercise Name flexion, scaption, ABD Resistance image for acquiring one online vs HEMALATHA help make. Equipment Used use mirror for self corrections Reps/Minutes x 15 reps, hold for 3 breaths Comments ed for awareness no UT recuitment Standing Exercises bicep curl Comments discussed AROM or 1# weight for home Manual Therapy Treatment Soft Tissue Mobilization biceps, f/a ext and flexors, UT, pec Mobilization Type Rolling,Strumming Intensity/Depth Moderate Body Position Hooklying Comments focus on pec and delt, teres and lats in sidelying PT-OP-R Modalities Start: 03/04/22 08:38 Freq: Status: Active Protocol: Document 03/27/22 17:29 AMH (Rec: 03/27/22 17:29 AMH [id number]) Hot Pack/Cold Pack Treatment Cold Pack Location R shoulder/pec/bicep Patient Position Hooklying Treatment Duration (minutes) 10 Patient Tolerance Good Comments w/pillow support and towel roll under RUE PT-OP-T Assessment and Plan Start: 03/04/22 08:38 Freq: Status: Active Protocol: Document 06/24/22 10:33 AW (Rec: 06/24/22 11:15 AW [id number]) Physical Therapy Assessment Goals Four Impairment self-care and daily activities Clinical Trials Manager Goal (LTG) QuickDASH score 25% or less ( down from 68%). 04/15/22: progressing: pt states can put on support hose now, uses bed rail for in/out bed, just rinsing hair for now due to lack ROM and how long takes painful. 05/27/22 - Can shower and wash hair without increase in pain LTG Duration 08/05/22 Three Impairment strength Short Term Goal (STG) Pt will lift her right arm to 75 degrees elevation in scaption plane 04/17/22 - Pt achieves 68 degrees elevation in scaption plane. 05/27/22 - Same measurement today. No change 06/18/22: standin deg R shld STG Duration 04/08/22 progressing: Clinical Trials Manager Goal (LTG) Pt will use her right arm to lift and carry 10 pounds so she can carry groceries. 04/29/22: progressing: pt states uses LUE to support RUE carrying coffee pot but notices can carry more things now. 05/27/22 - Can carry a basket weighing 5-8 pound. Can lift full tea kettle from sink to hotplate with right arm. - PT lifted 5# DB simulating lifting and pooring out from tea kettle. LTG Duration 08/05/22 Two Impairment ROM Short Term Goal (STG) PROM right arm improved to 90 degrees in flexion and abduction. 04/15/22: progressing: PROM R shld FF 96deg, ABD 82 deg. 05/27/22 - PROM: FF 108, abd 105 06/18/22: progressing; seated: AAROM FF: 90 deg, ABD: 101; seated PROM: FF 120, ABD 125; supine PROM FF 128deg, ABD 119 deg. STG Duration 04/08/22 progressing 06/18/22 [facility] Goal (LTG) AROM right arm improved to within 10 degrees of left arm in flexion and abduction. 04/29/22: progressing: AAROM supine FF 120 deg, 05/27/22 AROM abd 63, FF 72 LTG Duration 08/05/22 One Impairment lacks HEP Short Term Goal (STG) Pt will be instructed in HEP for ROM and strength (when appropriate) to support therapy services provided in clinic 04/15/22: R shld isometrics IR/ ER/Ext, AAROM wand supine, initiated table slides FF/ scaption/ER today. STG Duration 04/08/22 progressing 04/15/22 Clinical Trials Manager Goal (LTG) Pt will be independent with HEP for right arm ROM and strength to sustain therapy gains. 04/15/22: R shld isometrics IR/ ER/Ext, AAROM wand supine, initiated table slides FF/ scaption/ER today. 04/29/22: progressing occasional cues for posture/ form. LTG Duration 08/05/22 Assessment Summary Assessment Celena is doing well after a minor setback with pain after doing resisted biceps curls. She responded well to AAROM and eccentric strengthening today. Physical Therapy Plan Therapeutic Interventions Therapeutic Interventions Aquatic Therapy,Home Exercise Program,Manual Therapy, Neuromuscular Re-education, Self-Care/Home Management,Soft Tissue Mobilization,Taping, Therapeutic Activities, Therapeutic Exercises Modalities Cold Pack/Ice Massage,Electric Stimulation,Hot Packs Next Visit Focus/Plan Next Note Type Treatment Note Next Visit Plan Continue to progress ROM and strength. Re-assess bicep curls. Eccentrics. Lifting and carrying. STM prn for pain management. Joint mobs for ROM .
--- NOTE | 2022-07-07 15:37 | PT.OTN ---
Current Diagnoses Weakness (07/07/22) 4-part fracture of surgical neck of right humerus, subsequent encounter for fracture with routine healing (07/07/22) Physical Therapy Treatment Note PT-OP-A Visit Information Start: 03/04/22 08:38 Freq: Status: Active Protocol: Document 07/07/22 12:55 AMB (Rec: 07/07/22 13:49 AMB [id number]) Out-Patient Physical Therapy Visit Information Visit Information Visit Type Treatment Note Visit Start Time 13:00 Visit Stop Time 13:45 Total Visit Minutes 45 Visit Number 25 Number of DYNAMO TENDER Visits 0 PT-OP-B Current Condition Start: 03/04/22 08:38 Freq: Status: Active Protocol: Document 03/04/22 15:15 AW (Rec: 03/04/22 08:49 AW [id number]) Current Condition History of Current Condition Onset Date 01/28/22 Current Complaints right shoulder pain and stiffness after proximal humerus fracture History of Current Condition 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 She denies any other falls and calls this incident a freak accident. She fell on her right shoulder and hit her head. She was evaluated in the ED. X-ray of the shoulder revealed displaced, comminuted humeral head/neck fracture with inferior subluxation at the glenohumeral joint space. CT of the head revealed right parietal scalp hematoma but was otherwise negative. She left ED in a shoulder sling and followed up with ortho who recommended non-operative treatment. She saw ortho yesterday and doctor was satisfied with healing. Celena is now wearing a shoulder sling only at night for the most part. She was in cardiac rehab but had to stop after this injury. She is right handed. 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 She is sleeping on her back (usually a side sleeper). Granddaughter Kala is assisting at home. Celena is considering Visiting [place] for assist once Kala leaves. Prior Treatments and Tests Prior PT for hip pain Future Testing and Treatments Planned Back to ortho for follow up on 03/31. Treatment Goals Patient/Caregiver Goals Hopes to get back to cardiac rehab. Get her arm working again. Prior Functional Status Baseline Function- ADL's Independent Baseline Function- Mobility Independent Current Functional Impairments (Reported) Functional Limitations- ADL's Needs assist to don compression LE garments. Needs assist for showers with built in seat and suction cup grab bars. Needs assist with washing and drying. Has a bidet attachment on her ADA height toilet. Bed has partial rail. Functional Limitations- Mobility/Gait Using QC for household walking at night. PT-OP-C Subjective Start: 03/04/22 08:38 Freq: Status: Active Protocol: Document 07/07/22 12:55 AMB (Rec: 07/07/22 13:49 AMB [id number]) OP-PT Subjective Patient Comments Patient Comments Shoulder is still irritated at biceps insertion so pt has not been doing any weights. PT-OP-F Manual Assessment Start: 03/04/22 08:38 Freq: Status: Active Protocol: Document 03/04/22 15:15 AW (Rec: 03/05/22 17:50 AW [id number]) Manual Assessments Soft Tissue Assessment Soft Tissue Mobility Assessment Left UT, cervical paraspinals, lats, teres, rhomboids all with moderately increased density Joint Mobility Assessment Joint Mobility Assessment Not assessed due to fracture PT-OP-J Posture/Palpation/Skin Start: 03/04/22 08:38 Freq: Status: Active Protocol: Document 03/04/22 15:15 AW (Rec: 03/05/22 17:50 AW [id number]) Posture Evaluation Comments Posture Comments Left humerus sits inferiorly in the glenoid. Pt has moderate dowagers hump and forward head. Skin Assessment Other Assessments Skin Assessment Comments Scattered bruising remains - largely around elbow. PT-OP-K Range of Motion Start: 03/04/22 08:38 Freq: Status: Active Protocol: Document 05/07/22 09:50 SP (Rec: 05/07/22 10:35 SP [id number]) Shoulder Goniometric Range of Motion Shoulder R shld PROM Shoulder ROM WFL No Testing Position Supine Flexion 118 Abduction 103 External Rotation at 0 degrees Abduction 54 Comments 05/07/22: therapist supported, improved ABD post manual L shld AROM Shoulder ROM WFL No Testing Position Sitting Flexion 113 Extension 72 Abduction 99 External Rotation at 0 degrees Abduction 66 Internal Rotation Behind Back (text) T12 Comments 05/07/22 AROM seated except extension, measured in standing R shoulder Shoulder ROM WFL No Testing Position Sitting Flexion 59 Extension 34 Abduction 55 External Rotation at 0 degrees Abduction 20 Internal Rotation Behind Back (text) R buttocks Comments AROM seated PT-OP-Q Treatments Start: 03/04/22 08:38 Freq: Status: Active Protocol: Document 07/07/22 13:00 AMB (Rec: 07/07/22 14:00 AMB [id number]) Therapeutic Exercises Supine Exercises rhythmic stab Supine Exercise Name rhythmic stabilization Side right Equipment Used PT provides multidirectional force at varying lever arm lengths Reps/Minutes in 90 deg flexion Comments good control flexion Supine Exercise Name AAROM into flexion AROM controlling eccentric descent Reps/Minutes x8 reps Comments good slow eccentric descent form with elbow straight Passive shoulder Flex Supine Exercise Name PROM: FF, ABD, ER Side right Reps/Minutes 3 min Sidelying Exercises Shoulder ER Side right Resistance AROM Reps/Minutes 2x10 Comments Towel for tactile cues, HEP abduction Sidelying Exercise Name abduction Side right Resistance AROM to 90 deg Reps/Minutes 1x20 Comments HEP Sitting Exercises Shoulder rolls Sitting Exercise Name Fwd/Bwd Side bilateral Reps/Minutes 15x each Comments HEP review Manual Therapy Treatment Soft Tissue Mobilization biceps, f/a ext and flexors, UT, pec Mobilization Type Rolling,Strumming Intensity/Depth Moderate Body Position Hooklying Comments focus on pec and delt and biceps PT-OP-R Modalities Start: 03/04/22 08:38 Freq: Status: Active Protocol: Document 07/07/22 13:00 AMB (Rec: 07/07/22 15:31 AMB [id number]) Hot Pack/Cold Pack Treatment Cold Pack Location R shoulder/pec/bicep Patient Position Hooklying Treatment Duration (minutes) 5 Patient Tolerance Good Comments w/pillow support and towel roll under RUE PT-OP-T Assessment and Plan Start: 03/04/22 08:38 Freq: Status: Active Protocol: Document 07/07/22 12:55 AMB (Rec: 07/07/22 13:49 AMB [id number]) Physical Therapy Assessment Goals Four Impairment self-care and daily activities Shop Coordinator Goal (LTG) QuickDASH score 25% or less ( down from 68%). 04/15/22: progressing: pt states can put on support hose now, uses bed rail for in/out bed, just rinsing hair for now due to lack ROM and how long takes painful. 05/27/22 - Can shower and wash hair without increase in pain LTG Duration 08/05/22 Three Impairment strength Short Term Goal (STG) Pt will lift her right arm to 75 degrees elevation in scaption plane 04/17/22 - Pt achieves 68 degrees elevation in scaption plane. 05/27/22 - Same measurement today. No change 06/18/22: standin deg R shld STG Duration 04/08/22 progressing: Senior Care Goal (LTG) Pt will use her right arm to lift and carry 10 pounds so she can carry groceries. 04/29/22: progressing: pt states uses LUE to support RUE carrying coffee pot but notices can carry more things now. 05/27/22 - Can carry a basket weighing 5-8 pound. Can lift full tea kettle from sink to hotplate with right arm. - PT lifted 5# DB simulating lifting and pooring out from tea kettle. LTG Duration Can lift grocery bag, but not heavy Two Impairment ROM Short Term Goal (STG) PROM right arm improved to 90 degrees in flexion and abduction. 04/15/22: progressing: PROM R shld FF 96deg, ABD 82 deg. 05/27/22 - PROM: FF 108, abd 105 06/18/22: progressing; seated: AAROM FF: 90 deg, ABD: 101; seated PROM: FF 120, ABD 125; supine PROM FF 128deg, ABD 119 deg. STG Duration 04/08/22 progressing 06/18/22 Senior Care Goal (LTG) AROM right arm improved to within 10 degrees of left arm in flexion and abduction. 04/29/22: progressing: AAROM supine FF 120 deg, 05/27/22 AROM abd 63, FF 72 LTG Duration 08/05/22 One Impairment lacks HEP Short Term Goal (STG) Pt will be instructed in HEP for ROM and strength (when appropriate) to support therapy services provided in clinic 04/15/22: R shld isometrics IR/ ER/Ext, AAROM wand supine, initiated table slides FF/ scaption/ER today. STG Duration MET Shop Coordinator Goal (LTG) Pt will be independent with HEP for right arm ROM and strength to sustain therapy gains. 04/15/22: R shld isometrics IR/ ER/Ext, AAROM wand supine, initiated table slides FF/ scaption/ER today. 04/29/22: progressing occasional cues for posture/ form. LTG Duration MET Assessment Summary Assessment Celena reports taking 15-20 minutes to do exercises/day and denies increased pain with HEP. Does have discomfort with end range passive abduction and active flexion. She feels ready for next appt to be her last: focus on HEP review, final ROM assessment. Celena agrees that her ROM will likely never be perfect, but she was to have as good of function and as little pain as possible. Currently does have some discomfort at biceps , so agreed to hold on additional weight exercises for now. Physical Therapy Plan Frequency and Duration Frequency of Treatment 1-2x/week Plan of Care Start Date 05/27/22 Plan of Care End Date 08/05/22 Therapeutic Interventions Therapeutic Interventions Aquatic Therapy,Home Exercise Program,Manual Therapy, Neuromuscular Re-education, Self-Care/Home Management,Soft Tissue Mobilization,Taping, Therapeutic Activities, Therapeutic Exercises Modalities Cold Pack/Ice Massage,Electric Stimulation,Hot Packs Next Visit Focus/Plan Next Note Type Discharge Summary Next Visit Plan Finalize HEP. ROM assessment. Avoid weights to avoid biceps pain.
--- NOTE | 2022-07-15 16:55 | PT.OTN ---
Current Diagnoses Weakness (07/15/22) 4-part fracture of surgical neck of right humerus, subsequent encounter for fracture with routine healing (07/15/22) Physical Therapy Treatment Note PT-OP-A Visit Information Start: 03/04/22 08:38 Freq: Status: Active Protocol: Document 07/15/22 14:04 NBM (Rec: 07/15/22 14:44 NBM [id number]) Out-Patient Physical Therapy Visit Information Visit Information Visit Type Treatment Note Visit Note DOCK ASSOCIATE late getting pt. 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 She denies any other falls and calls this incident a freak accident. She fell on her right shoulder and hit her head. She was evaluated in the ED. X-ray of the shoulder revealed displaced, comminuted humeral head/neck fracture with inferior subluxation at the glenohumeral joint space. CT of the head revealed right parietal scalp hematoma but was otherwise negative. She left ED in a shoulder sling and followed up with ortho who recommended non-operative treatment. She saw ortho yesterday and doctor was satisfied with healing. Celena is now wearing a shoulder sling only at night for the most part. She was in cardiac rehab but had to stop after this injury. She is right handed. 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 She is sleeping on her back (usually a side sleeper). Granddaughter Kala is assisting at home. Celena is considering Visiting Major Aide for assist once Kala leaves. Prior Treatments and Tests Prior PT for hip pain Future Testing and Treatments Planned Back to ortho for follow up on 03/31. Treatment Goals Patient/Caregiver Goals Hopes to get back to cardiac rehab. Get her arm working again. Prior Functional Status Baseline Function- ADL's Independent Baseline Function- Mobility Independent Current Functional Impairments (Reported) Functional Limitations- ADL's Needs assist to don compression LE garments. Needs assist for showers with built in seat and suction cup grab bars. Needs assist with washing and drying. Has a bidet attachment on her ADA height toilet. Bed has partial rail. Functional Limitations- Mobility/Gait Using QC for household walking at night. PT-OP-C Subjective Start: 03/04/22 08:38 Freq: Status: Active Protocol: Document 07/15/22 14:04 NBM (Rec: 07/15/22 14:44 NBM [id number]) OP-PT Subjective Patient Comments Patient Comments Pt reports biceps insertion is still sore so she has not been doing any weights, but she still feels good about this being her last appointment. PT-OP-F Manual Assessment Start: 03/04/22 08:38 Freq: Status: Active Protocol: Document 03/04/22 15:15 AW (Rec: 03/05/22 17:50 AW [id number]) Manual Assessments Soft Tissue Assessment Soft Tissue Mobility Assessment Left UT, cervical paraspinals, lats, teres, rhomboids all with moderately increased density Joint Mobility Assessment Joint Mobility Assessment Not assessed due to fracture PT-OP-J Posture/Palpation/Skin Start: 03/04/22 08:38 Freq: Status: Active Protocol: Document 03/04/22 15:15 AW (Rec: 03/05/22 17:50 AW [id number]) Posture Evaluation Comments Posture Comments Left humerus sits inferiorly in the glenoid. Pt has moderate dowagers hump and forward head. Skin Assessment Other Assessments Skin Assessment Comments Scattered bruising remains - largely around elbow. PT-OP-K Range of Motion Start: 03/04/22 08:38 Freq: Status: Active Protocol: Document 07/15/22 14:04 NBM (Rec: 07/15/22 14:44 NBM [id number]) Shoulder Goniometric Range of Motion Shoulder R shld PROM Shoulder ROM WFL No Testing Position Sitting Flexion 100 Extension 44 Internal Rotation Behind Back (text) T9 L shld AROM Shoulder ROM WFL No Testing Position Sitting Flexion 151 Abduction 99 External Rotation at 0 degrees Abduction 66 Internal Rotation Behind Back (text) T12 Comments 05/07/22 AROM seated except extension, measured in standing R shoulder Shoulder ROM WFL No Testing Position Sitting Flexion 68 Extension 45 Abduction 70 Horizontal Abduction 50 Internal Rotation Behind Back (text) T12 (pain-limited by sore biceps tendon insertion) Comments AROM seated Pain in R biceps insertion noted ronnie w/ horizontal abduction Left Passive Shoulder ROM WFL No Testing Position Supine Flexion 136 Extension 40 PT-OP-Q Treatments Start: 03/04/22 08:38 Freq: Status: Active Protocol: Document 07/15/22 14:04 NBM (Rec: 07/15/22 14:44 NBM [id number]) Therapeutic Exercises Supine Exercises flexion Supine Exercise Name AAROM into flexion AROM controlling eccentric descent Reps/Minutes x8 reps Comments good slow eccentric descent form with elbow straight Passive shoulder Flex Supine Exercise Name PROM: FF, ABD, ER Side right Reps/Minutes 3 min Sidelying Exercises abduction Sidelying Exercise Name abduction Side right Resistance AROM to 90 deg Reps/Minutes 1x20 Comments HEP Sitting Exercises AROM Sitting Exercise Name AAROM>AROM - flex, abd Side right Resistance less assist for AROM Comments focus on negative/ecc reps to build strength Shoulder rolls Sitting Exercise Name Fwd/Bwd Side bilateral Reps/Minutes 15x each Comments HEP review Standing Exercises IR Standing Exercise Name IR and eccentric ER stretch ROM Side right Resistance TB1 Equipment Used towel under arm Reps/Minutes 2x10 Comments HEP reviewed- cued posture/ scap retraction, head back CS ext neutral R Shld TB Standing Exercise Name B shld ext Resistance TB #1 Reps/Minutes x10 Comments cued tall posture, retraction Manual Therapy Treatment Soft Tissue Mobilization biceps, f/a ext and flexors, UT, pec Mobilization Type Rolling,Strumming Intensity/Depth Moderate Body Position Hooklying Comments focus on biceps PT-OP-R Modalities Start: 03/04/22 08:38 Freq: Status: Active Protocol: Document 07/07/22 13:00 AMB (Rec: 07/07/22 15:31 AMB [id number]) Hot Pack/Cold Pack Treatment Cold Pack Location R shoulder/pec/bicep Patient Position Hooklying Treatment Duration (minutes) 5 Patient Tolerance Good Comments w/pillow support and towel roll under RUE PT-OP-T Assessment and Plan Start: 03/04/22 08:38 Freq: Status: Active Protocol: Document 07/15/22 14:04 COLLETTEM (Rec: 07/15/22 14:44 NBM [id number]) Physical Therapy Assessment Goals Four Impairment self-care and daily activities Sediment Remediation Consultant Goal (LTG) QuickDASH score 25% or less ( down from 68%). 04/15/22: progressing: pt states can put on support hose now, uses bed rail for in/out bed, just rinsing hair for now due to lack ROM and how long takes painful. 05/27/22 - Can shower and wash hair without increase in pain LTG Duration 08/05/22 Three Impairment strength Short Term Goal (STG) Pt will lift her right arm to 75 degrees elevation in scaption plane 04/17/22 - Pt achieves 68 degrees elevation in scaption plane. 05/27/22 - Same measurement today. No change 06/18/22: standin deg R shld STG Duration 04/08/22 progressing: Sediment Remediation Consultant Goal (LTG) Pt will use her right arm to lift and carry 10 pounds so she can carry groceries. 04/29/22: progressing: pt states uses LUE to support RUE carrying coffee pot but notices can carry more things now. 05/27/22 - Can carry a basket weighing 5-8 pound. Can lift full tea kettle from sink to hotplate with right arm. - PT lifted 5# DB simulating lifting and pooring out from tea kettle. LTG Duration Can lift grocery bag, but not heavy Two Impairment ROM Short Term Goal (STG) PROM right arm improved to 90 degrees in flexion and abduction. 04/15/22: progressing: PROM R shld FF 96deg, ABD 82 deg. 05/27/22 - PROM: FF 108, abd 105 06/18/22: progressing; seated: AAROM FF: 90 deg, ABD: 101; seated PROM: FF 120, ABD 125; supine PROM FF 128deg, ABD 119 deg. STG Duration 04/08/22 progressing 06/18/22 Long-Term Goal (LTG) AROM right arm improved to within 10 degrees of left arm in flexion and abduction. 04/29/22: progressing: AAROM supine FF 120 deg, 05/27/22 AROM abd 63, FF 72 LTG Duration 08/05/22 One Impairment lacks HEP Short Term Goal (STG) Pt will be instructed in HEP for ROM and strength (when appropriate) to support therapy services provided in clinic 04/15/22: R shld isometrics IR/ ER/Ext, AAROM wand supine, initiated table slides FF/ scaption/ER today. STG Duration MET Sediment Remediation Consultant Goal (LTG) Pt will be independent with HEP for right arm ROM and strength to sustain therapy gains. 04/15/22: R shld isometrics IR/ ER/Ext, AAROM wand supine, initiated table slides FF/ scaption/ER today. 04/29/22: progressing occasional cues for posture/ form. LTG Duration MET Assessment Summary Assessment Treatment focus on finalizing HEP, education for pain management with ice and heat, and manual therapy with focus to R biceps insertions. R shoulder AROM improves in all planes. Physical Therapy Plan Frequency and Duration Frequency of Treatment 1-2x/week Plan of Care Start Date 05/27/22 Plan of Care End Date 08/05/22 Therapeutic Interventions Therapeutic Interventions Aquatic Therapy,Home Exercise Program,Manual Therapy, Neuromuscular Re-education, Self-Care/Home Management,Soft Tissue Mobilization,Taping, Therapeutic Activities, Therapeutic Exercises Modalities Cold Pack/Ice Massage,Electric Stimulation,Hot Packs Next Visit Focus/Plan Next Note Type Discharge Summary Next Visit Plan Finalize HEP. ROM assessment. Avoid weights to avoid biceps pain.
--- NOTE | 2023-01-17 15:33 | PT.OPDS ---
Current Diagnoses Weakness (07/15/22) 4-part fracture of surgical neck of right humerus, subsequent encounter for fracture with routine healing (07/15/22) Visit Care Team Role Provider Type Jonn Rangel MD Family Provider Physician Primary Care Provider Specialty: Family Practice Address: [address] [place] [address], [id number] Email: [email or web address] Walker Lopes MD Attending Provider Physician Referring Provider Specialty: Orthopedics Orthopedic Surgery Address: [address] [place] [address], [id number] Email: [email or web address] Visit Number Visit Number 26 Discharge Summary PT-OP-B Current Condition Start: 03/04/22 08:38 Freq: Status: Active Protocol: Document 03/04/22 15:15 AW (Rec: 03/04/22 08:49 AW [id number]) Current Condition History of Current Condition Onset Date 01/28/22 Current Complaints right shoulder pain and stiffness after proximal humerus fracture History of Current Condition 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 She denies any other falls and calls this incident a freak accident. She fell on her right shoulder and hit her head. She was evaluated in the ED. X-ray of the shoulder revealed displaced, comminuted humeral head/neck fracture with inferior subluxation at the glenohumeral joint space. CT of the head revealed right parietal scalp hematoma but was otherwise negative. She left ED in a shoulder sling and followed up with ortho who recommended non-operative treatment. She saw ortho yesterday and doctor was satisfied with healing. Celena is now wearing a shoulder sling only at night for the most part. She was in cardiac rehab but had to stop after this injury. She is right handed. 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 She is sleeping on her back (usually a side sleeper). Granddaughter Kala is assisting at home. Celena is considering [facility] [place] for assist once Kala leaves. Prior Treatments and Tests Prior PT for hip pain Future Testing and Treatments Planned Back to ortho for follow up on 03/31. Treatment Goals Patient/Caregiver Goals Hopes to get back to cardiac rehab. Get her arm working again. Prior Functional Status Baseline Function- ADL's Independent Baseline Function- Mobility Independent Current Functional Impairments (Reported) Functional Limitations- ADL's Needs assist to don compression LE garments. Needs assist for showers with built in seat and suction cup grab bars. Needs assist with washing and drying. Has a bidet attachment on her ADA height toilet. Bed has partial rail. Functional Limitations- Mobility/Gait Using QC for household walking at night. PT-OP-C Subjective Start: 03/04/22 08:38 Freq: Status: Active Protocol: Document 07/15/22 14:04 NBM (Rec: 07/15/22 14:44 NBM [id number]) OP-PT Subjective Patient Comments Patient Comments Pt reports biceps insertion is still sore so she has not been doing any weights, but she still feels good about this being her last appointment. PT-OP-F Manual Assessment Start: 03/04/22 08:38 Freq: Status: Active Protocol: Document 03/04/22 15:15 AW (Rec: 03/05/22 17:50 AW [id number]) Manual Assessments Soft Tissue Assessment Soft Tissue Mobility Assessment Left UT, cervical paraspinals, lats, teres, rhomboids all with moderately increased density Joint Mobility Assessment Joint Mobility Assessment Not assessed due to fracture PT-OP-J Posture/Palpation/Skin Start: 03/04/22 08:38 Freq: Status: Active Protocol: Document 03/04/22 15:15 AW (Rec: 03/05/22 17:50 AW [id number]) Posture Evaluation Comments Posture Comments Left humerus sits inferiorly in the glenoid. Pt has moderate dowagers hump and forward head. Skin Assessment Other Assessments Skin Assessment Comments Scattered bruising remains - largely around elbow. PT-OP-K Range of Motion Start: 03/04/22 08:38 Freq: Status: Active Protocol: Document 07/15/22 14:04 NBM (Rec: 07/15/22 14:44 NBM [id number]) Shoulder Goniometric Range of Motion Shoulder R shld PROM Shoulder ROM WFL No Testing Position Sitting Flexion 100 Extension 44 Internal Rotation Behind Back (text) T9 L shld AROM Shoulder ROM WFL No Testing Position Sitting Flexion 151 Abduction 99 External Rotation at 0 degrees Abduction 66 Internal Rotation Behind Back (text) T12 Comments 05/07/22 AROM seated except extension, measured in standing R shoulder Shoulder ROM WFL No Testing Position Sitting Flexion 68 Extension 45 Abduction 70 Horizontal Abduction 50 Internal Rotation Behind Back (text) T12 (pain-limited by sore biceps tendon insertion) Comments AROM seated Pain in R biceps insertion noted ronnie w/ horizontal abduction Left Passive Shoulder ROM WFL No Testing Position Supine Flexion 136 Extension 40 PT-OP-T Assessment and Plan Start: 03/04/22 08:38 Freq: Status: Active Protocol: Document 01/17/23 15:31 AMB (Rec: 01/17/23 15:33 AMB [id number]) Physical Therapy Assessment Goals Four Impairment self-care and daily activities Athletic Field Custodian Goal (LTG) QuickDASH score 25% or less ( down from 68%). 04/15/22: progressing: pt states can put on support hose now, uses bed rail for in/out bed, just rinsing hair for now due to lack ROM and how long takes painful. 05/27/22 - Can shower and wash hair without increase in pain LTG Duration 08/05/22 Three Impairment strength Short Term Goal (STG) Pt will lift her right arm to 75 degrees elevation in scaption plane 04/17/22 - Pt achieves 68 degrees elevation in scaption plane. 05/27/22 - Same measurement today. No change 06/18/22: standin deg R shld STG Duration 04/08/22 progressing: Athletic Field Custodian Goal (LTG) Pt will use her right arm to lift and carry 10 pounds so she can carry groceries. 04/29/22: progressing: pt states uses LUE to support RUE carrying coffee pot but notices can carry more things now. 05/27/22 - Can carry a basket weighing 5-8 pound. Can lift full tea kettle from sink to hotplate with right arm. - PT lifted 5# DB simulating lifting and pooring out from tea kettle. LTG Duration Can lift grocery bag, but not heavy Two Impairment ROM Short Term Goal (STG) PROM right arm improved to 90 degrees in flexion and abduction. 04/15/22: progressing: PROM R shld FF 96deg, ABD 82 deg. 05/27/22 - PROM: FF 108, abd 105 06/18/22: progressing; seated: AAROM FF: 90 deg, ABD: 101; seated PROM: FF 120, ABD 125; supine PROM FF 128deg, ABD 119 deg. STG Duration 04/08/22 progressing 06/18/22 Longterm Goal (LTG) AROM right arm improved to within 10 degrees of left arm in flexion and abduction. 04/29/22: progressing: AAROM supine FF 120 deg, 05/27/22 AROM abd 63, FF 72 LTG Duration 08/05/22 One Impairment lacks HEP Short Term Goal (STG) Pt will be instructed in HEP for ROM and strength (when appropriate) to support therapy services provided in clinic 04/15/22: R shld isometrics IR/ ER/Ext, AAROM wand supine, initiated table slides FF/ scaption/ER today. STG Duration MET Athletic Field Custodian Goal (LTG) Pt will be independent with HEP for right arm ROM and strength to sustain therapy gains. 04/15/22: R shld isometrics IR/ ER/Ext, AAROM wand supine, initiated table slides FF/ scaption/ER today. 04/29/22: progressing occasional cues for posture/ form. LTG Duration MET Assessment Summary Assessment Pt has not been seen in 6 months. Seen for last visit by CHARLIE Ocasio. At last visit, pt had finalized her HEP, held on biceps strengthening and ROM was improving. Physical Therapy Plan Discharge Physical Therapy Discharge Reasons Patient Request
== END 2023-01-20 12:31 | disposition home or self-care (01) ==
LOC: PHYS 13:45
PROVIDERS: Family Provider Family Medicine; PCP Family Medicine; Referring Provider Orthopaedic Surgery; Visit Provider Orthopaedic Surgery
DX: S42.241D 4-part fracture of surgical neck of right humerus, subsequent encounter for fracture with routine healing (principal); R53.1 Weakness
CPT/HCPCS: 97110; 97140; 97161; 97530; 97535

== ENCOUNTER 2022-10-02 15:33 | Emergency (ER) | payer MEDICARE, OTHER, SELFPAY ==
[2022-10-02 15:39] VITALS: PULSE 75; O2SAT 94
[2022-10-02 15:40] VITALS: BP 138/65; PULSE 70; O2SAT 95
[2022-10-02 15:43] VITALS: BP 138/65; PULSE 70; RESP 16; TEMP 36.8; O2SAT 99; BMI 23.4
--- NOTE | 2022-10-02 15:54 | DI.RAD.S_ITS ---
PROCEDURE: XR KNEE LT 3V INDICATIONS: knee trauma TECHNIQUE: 2 views of the knee were acquired. COMPARISON: None. FINDINGS: Bones: No fractures or dislocations. No suspicious bony lesions. Soft tissues: No joint effusion. No suspicious soft tissue calcifications. IMPRESSION: No acute fracture. No osseous lesion. If symptoms and/or clinical suspicion for pathology persist, further assessment with repeat, or advanced imaging (e.g., CT, MRI, or bone scan) may be helpful for further assessment. Dictated by: Edgar Carroll M.D. on 10/02/2022 at 16:29 Approved by: Edgar Carroll M.D. on 10/02/2022 at 16:29
[2022-10-02 16:00] VITALS: PULSE 70; O2SAT 100
[2022-10-02 16:01] VITALS: BP 116/56; PULSE 70; O2SAT 100
--- NOTE | 2022-10-02 16:09 | ED_ITS ---
HPI - Extremity Injury (Lower) <Loco Mullins PA-C - Last Filed: 10/02/22 17:36> General Chief Complaint: Extremity Injury, Lower Stated Complaint: Fell a week ago/Lt. leg swelling/hot to touch/pain Time Seen by Provider: 10/02/22 15:39 Mode of arrival: Family Vehicle History of Present Illness HPI Narrative: This is a 87-year-old female presents to the emergency department complaining of left knee pain as well as concerns with the amount of ecchymosis of the left lower extremity. Patient does take Eliquis for her ?heart problems?. Patient states that she tripped over a pillow and landed on her left knee about a week ago, saw her primary care provider, Dr. Rangel, who stated that he suspected that there was no fracture and recommended light movement and activity. Patient states that the pain has continued and is concerned with the amount of bruising to the left lower extremity as well as the ?tightness? in her left calf area denies any paresthesia, unilateral weakness, or any other concerning signs or symptoms. Does take a daily diuretic and has been taking as prescribed. Related Data Home Medications Medication Instructions Recorded Confirmed cholecalciferol (vitamin D3) 50 2,000 iu PO Q DAY ##0 10/20/11 09/29/22 mcg (2,000 unit) capsule (Vitamin D3) amoxicillin 500 mg capsule 2,000 mg PO ONCE 02/16/20 09/29/22 furosemide 20 mg tablet 20 mg PO Q OTHER DAY 11/01/20 09/29/22 potassium chloride 10 mEq 10 meq PO .EVERY OTHER DAY 11/01/20 09/29/22 capsule,extended release aspirin 81 mg tablet,delayed 81 mg PO DAILY 04/03/22 09/29/22 release diltiazem HCl 180 mg capsule,24 180 mg PO DAILY 04/03/22 09/29/22 hr,extended release Previous Rx's Medication Instructions Recorded levothyroxine 50 mcg tablet 50 mcg PO DAILY #90 tabs 11/18/21 (Synthroid) citalopram 10 mg tablet 10 mg PO DAILY #90 tabs 05/05/22 apixaban 5 mg tablet 5 mg PO BID #60 tabs 06/09/22 nystatin 100,000 unit/gram topical 1 applic topical BID #30 grams 06/30/22 cream Disabled Parking #1 ea 09/08/22 Allergies Allergy/AdvReac Type Severity Reaction Status Date / Time No Known Drug Allergies Allergy Verified 10/02/22 15:46 Review of Systems <Loco Mullins PA-C - Last Filed: 10/02/22 17:36> Review of Systems Narrative: GENERAL: Denies chills, fatigue, malaise, fever, sweats. HEENT: Denies sinus pain, ear pain, sore throat, difficulty swallowing, dizziness. RESPIRATORY: Denies dyspnea, cough, wheezing, hemoptysis, sputum. CARDIOVASCULAR: Denies chest pain, palpitations, orthopnea, edema, GASTROINTESTINAL: Denies nausea, vomiting, abdominal pain, diarrhea, constipation, melena. : Denies dysuria, frequency, incontinence, hematuria, urinary retention. MUSCULOSKELETAL: Left knee pain and bilateral lower extremity peripheral edema SKIN: Left lower extremity ecchymosis NEUROLOGIC: Denies weakness, headache, numbness, change in speech, confusion, seizures, incoordination. PSYCHIATRIC: No concerning psychosocial issues. 12 point review of systems is negative except for those stated above Patient History <Loco Mullins PA-C - Last Filed: 10/02/22 17:36> Medical History (Updated 10/02/22 @ 17:36 by Loco Mullins PA-C) Abdominal ascites Aortic valve stenosis (11/09/13) Foot deformities, congenital Hyperlipidemia Osteoporosis (~1989) Urinary incontinence Surgical History History of aortic valve replacement with bioprosthetic valve (2015) History of carpal tunnel release History of tonsillectomy Normal colonoscopy (2005) Personal history of tricuspid valve disease Family History Brother Hyperlipidemia Hypertension Sister Age: 74 Ovarian cancer Father No problems noted. Mother No problems noted. Other Breast cancer CAD (coronary artery disease) Colorectal cancer Diabetes mellitus Social History marital status: number of children: 3 household members: none lives independently: Yes occupational status: other Smoking Status: Never smoker alcohol intake: current Smoking Status: Never smoker alcohol intake frequency: holidays/special occasions only Substance Use Type: does not use Exam <Loco Mullins PA-C - Last Filed: 10/02/22 17:36> Narrative Exam Narrative: GENERAL: Well-developed patient, in mild distress. HEAD: Atraumatic. Normocephalic. EYES: Pupils equal round and reactive. Extraocular motions intact. No scleral icterus. No injection or drainage. ENT: Nose without bleeding, purulent drainage. Throat without erythema, tonsillar hypertrophy or exudate. Airway patent. NECK: Trachea midline. Non tender CARDIOVASCULAR: Regular rate and rhythm without murmurs, gallops, or rubs. RESPIRATORY: Clear to auscultation. Breath sounds equal bilaterally. No wheezes, rales, or rhonchi. GASTROINTESTINAL: Abdomen soft, non-tender, nondistended. EXTREMITIES: Tenderness to palpation of the medial left knee. Decreased range of motion secondary to pain. Neurovascularly intact throughout. 2+ dorsalis pedis pulse. Bilateral 2+ pitting edema. BACK: Nontender without deformity or crepitance. No flank tenderness. NEURO: AOx3. SKIN: Diffuse ecchymosis to left calf, knee, and spreading to feet. Initial Vital Signs Initial Vital Signs: Vital Signs Pulse Rate 75 10/02/22 15:39 Pulse Oximetry 94 10/02/22 15:39 <DO Itzel Nathan Last Filed: 10/03/22 07:16> Initial Vital Signs Initial Vital Signs: Vital Signs Pulse Rate 75 10/02/22 15:39 Pulse Oximetry 94 10/02/22 15:39 Course <KIYA Felder Last Filed: 10/02/22 17:36> Orders Ordered: ED Orders 10/02/22 15:54 XR knee LT 1to2V Stat Vital Signs Vital signs: Vital Signs - 8 hr 10/02/22 15:43 Temperature 98.2 F Pulse Rate 70 Respiratory Rate 16 Blood Pressure 138/65 Pulse Oximetry 99 Oxygen Delivery Method Room Air <DO Itzel Nathan Last Filed: 10/03/22 07:16> Orders Ordered: ED Orders 10/02/22 15:54 XR knee LT 1to2V Stat Vital Signs Vital signs: Vital Signs - 8 hr 10/02/22 15:43 Temperature 98.2 F Pulse Rate 70 Respiratory Rate 16 Blood Pressure 138/65 Pulse Oximetry 99 Oxygen Delivery Method Room Air MDM - Extremity Injury (Lower) <KIYA Felder Last Filed: 10/02/22 17:36> Imaging Data Extremity x-ray #1: Radiologist's Impression: [address] [address] XRay Report Signed Patient: Celena Wells MR#: [id number] : 1935 Acct:[id number] Age/Sex: 87 / F Date of Service: 10/02/22 Loc: ED Accession Number: [id number] ?? Procedure: XR knee LT 1to2V Ordering Provider: Loco Mullins P.A-C PROCEDURE:? XR KNEE LT 3V ? INDICATIONS:? knee trauma ? TECHNIQUE:? 2 views of the knee were acquired.? ? COMPARISON:? None. ? FINDINGS:? ? Bones:? No fractures or dislocations.? No suspicious bony lesions.? ? Soft tissues:? No joint effusion.? No suspicious soft tissue calcifications.? ? ? IMPRESSION:? No acute fracture. No osseous lesion. If symptoms and/or clinical suspicion for pathology persist, further assessment with repeat, or advanced imaging (e.g., CT, MRI, or bone scan) may be helpful for further assessment. ? ? Dictated by: Edgar Carroll M.D. on 10/02/2022 at 16:29 ? ? Approved by: Edgar Carroll M.D. on 10/02/2022 at 16:29 ? MDM Narrative Medical decision making narrative: MDM * differential diagnosis includes but not limited to fracture, compartment syndrome, soft tissue contusion * Prior records reviewed: Patient has not been here for similar complaints in the past. * My lab interpretation: None obtain * My imgaing interpretation: X-ray negative for any fractures or other bony abnormalities * Clinical Decision Rules/Scores evaluated: None * Independent discussions with: None ED Course: This is a 87-year-old female presents emergency department due to increased left lower extremity swelling after injury approximately a week ago. X-ray negative for any fractures. Patient does have bilateral peripheral edema which also attributes to the left lower extremity swelling. She does have diffuse ecchymosis throughout the left calf and knee. She still has very adequate peripheral pulses and low concern for compartment syndrome at this time. Patient is not describe any acute pain does not report any numbness either. Recommended she continue with ice and elevation to help swelling as well as continue her chronic blood thinner and diuretics. Recommend she follow up with primary care provider in a week for further evaluation if symptoms continue. Shared Decision Making: Discussed plan with patient is comfortable with the plan Social Considerations: None Disposition: Discharged to home Discharge Plan Departure Patient Disposition: Home Clinical Impression: Injury of knee Instructions: DI for Knee Sprain Activity Restrictions/Additional Instructions: Thank you for coming to the [facility] Emergency Department today. As discussed the knee x-ray was negative for any fractures. The swelling is evident in both of your lower extremities and I recommend you continue taking the diuretic. He may also discussed speaking with your primary care provider for possible increase in the dosage of the diuretic increased swelling does not improve. I recommend to elevate the left lower extremity as well as use ice to help the swelling. Please monitor for any very increased pain, numbness, changes in color of the toes, or any other concerning signs or symptoms. He may bring her to the emergency department if you are concerned about any of this. You may also follow-up with your primary care provider for further evaluation if symptoms continue. I hope you feel better soon. Prescriptions: No Action levothyroxine [Synthroid] 50 mcg tablet 50 mcg PO DAILY Qty: 90 3RF amoxicillin 500 mg capsule 2,000 mg PO ONCE Rx Instructions: TAKE 4 CAPSULES 1 HOUR PRIOR TO DENTAL APPOINTMENT furosemide 20 mg tablet 20 mg PO Q OTHER DAY Label Comments: 09/18/20 DR. SANTORO potassium chloride 10 mEq capsule, extended release 10 meq PO .EVERY OTHER DAY Label Comments: 09/18/20 DR. SANTORO diltiazem HCl 180 mg capsule,extended release 24 hr 180 mg PO DAILY aspirin 81 mg tablet,delayed release (DR/EC) 81 mg PO DAILY nystatin 100,000 unit/gram cream 1 applic topical BID Qty: 30 0RF (DME) Disabled Parking See Rx Instructions .ROUTE .MEDSUPPLY Qty: 1 0RF Rx Instructions: I find this patient to be medically disabled and qualified for Disabled Parking as indicated, and signed, on the Accompanying Disabled Parking Application for Individuals cholecalciferol (vitamin D3) [Vitamin D3] 2,000 UNIT capsule 2,000 iu PO Q DAY Qty: 0 citalopram 10 mg tablet 10 mg PO DAILY Qty: 90 3RF apixaban 5 mg tablet 5 mg PO BID Qty: 60 11RF Referrals: Jonn Rangel MD [Primary Care Provider] - Stand Alone Forms: Patient Portal/API <Steph Ac DO - Last Filed: 10/03/22 07:16> Cosign ED Attending Cosignature Attestation: I was immediately available in the department for consultation. Documentation has been reviewed.
[2022-10-02 16:30] VITALS: PULSE 70; O2SAT 96
== END 2022-10-02 17:40 | disposition home or self-care (01) ==
PROVIDERS: Emergency Provider Physician Assistant Medical; Family Provider Family Medicine; PCP Family Medicine
DX: S89.92XA Unspecified injury of left lower leg, initial encounter (principal); X58.XXXA Exposure to other specified factors, initial encounter; Z79.01 Long term (current) use of anticoagulants
CPT/HCPCS: 73560; 99283

== ENCOUNTER → 2022-11-18 13:03 | Outpatient (CLI) | payer MEDICARE, OTHER, SELFPAY ==
[2022-11-18 13:47] LABS: BUN Creatinine Ratio 45.2 (6-22); Blood Urea Nitrogen 38 mg/dL (7-17); Carbon Dioxide 29 mmol/L (22-32); Chloride 101 mmol/L (98-107); Estimated Glomerular Filt Rate > 60 mL/min (>60); Glucose 175 mg/dL (80-110); HEMOLYSIS < 15 (0-50); Potassium 4.2 mmol/L (3.4-5.1); Sodium 137 mmol/L (137-145)
== END ==
PROVIDERS: Family Provider Family Medicine; PCP Family Medicine; Referring Provider Internal Medicine Cardiovascular Disease; Visit Provider Internal Medicine Cardiovascular Disease
DX: I48.19 Other persistent atrial fibrillation (principal); I36.1 Nonrheumatic tricuspid (valve) insufficiency; Z95.0 Presence of cardiac pacemaker
CPT/HCPCS: 36415; 80048

== ENCOUNTER → 2023-01-02 09:43 | Outpatient (CLI) | payer MEDICARE, OTHER, SELFPAY ==
--- NOTE | 2023-01-02 09:46 | DI.RAD.S_ITS ---
PROCEDURE: XR LUMBAR SPINE 2-3V INDICATIONS: back pain TECHNIQUE: 3 views of the lumbar spine were acquired. COMPARISON: [facility], CR, XR LUMBAR SPINE 2-3V, 09/05/2021, 14:04. FINDINGS: Bones: 5 [id number] vertebrae are present. There is trace L1 on L2 and L2 on L3 retrolisthesis. No vertebral body compression fractures. There is diffuse intervertebral disc space narrowing, sclerosis, osteophytosis and facet sclerosis. No suspicious bony lesions. Soft tissues: Overlying bowel gas pattern is normal. There are extensive atheromatous calcifications throughout the abdominal aorta. IMPRESSION: Mild spondylolisthesis and degenerative change. Aortic atherosclerosis. Dictated by: Elsa Lee M.D. on 01/02/2023 at 13:11 Approved by: Elsa Lee M.D. on 01/02/2023 at 13:13
--- NOTE | 2023-01-02 09:46 | DI.RAD.S_ITS ---
PROCEDURE: XR THORACIC SPINE 3V INDICATIONS: back pain TECHNIQUE: 2 views of the thoracic spine were acquired. COMPARISON: [facility], CT, CT ANGIO HEAD AND NECK, 03/31/2022, 19:23. [facility], CT, CT CHEST WO CON, 01/17/2022, 9:38. FINDINGS: Bones: T7 compression deformity is redemonstrated and appears unchanged from the study dated January 17, 2022. There is a new, severe compression deformity at T9 with approximately 80% vertebral body height loss.. Soft tissues: No paravertebral stripe thickening. IMPRESSION: 1. Stable T7 compression deformity when compared with the CT dated January 17, 2022. 2. New severe T9 compression deformity. The acuity of this finding is unknown without prior recent comparisons. If further characterization is warranted, MRI of the thoracic spine could be used. Dictated by: Elsa Lee M.D. on 01/02/2023 at 13:07 Approved by: Elsa Lee M.D. on 01/02/2023 at 13:11
--- NOTE | 2023-01-02 09:46 | DI.RAD.S_ITS ---
PROCEDURE: XR CERVICAL SPINE 2V OR 3V INDICATIONS: back pain TECHNIQUE: 3 view(s) of the cervical spine were acquired. COMPARISON: None. FINDINGS: The Bones: No fractures or dislocations to the C7 level. There is grade 1 C3 on C4 anterolisthesis. Severe degenerative changes are present throughout the cervical spine including intervertebral disc space narrowing, endplate sclerosis and osteophytosis. The lateral masses of C1 appear intact on the odontoid view. No suspicious bony lesions. No compression deformities. Soft tissues: No prevertebral soft tissue swelling. IMPRESSION: Severe degenerative change and spondylolisthesis of the mid cervical spine. Dictated by: Elsa Lee M.D. on 01/02/2023 at 12:52 Approved by: Elsa Lee M.D. on 01/02/2023 at 13:06
== END ==
PROVIDERS: Family Provider Family Medicine; PCP Family Medicine; Referring Provider Family Medicine; Visit Provider Family Medicine
DX: M54.9 Dorsalgia, unspecified (principal); M41.9 Scoliosis, unspecified; M43.8X4 Other specified deforming dorsopathies, thoracic region; M43.16 Spondylolisthesis, lumbar region; I70.0 Atherosclerosis of aorta; M43.12 Spondylolisthesis, cervical region
CPT/HCPCS: 72040; 72072; 72100

== ENCOUNTER → 2023-01-15 13:18 | Outpatient (CLI) | payer MEDICARE, OTHER, SELFPAY ==
--- NOTE | 2023-01-15 | DI.US.S_ITS ---
PROCEDURE: US ABDOMEN COMPLETE INDICATIONS: LEFT UPPER QUADRANT PAIN TECHNIQUE: Real-time scanning was performed of the abdominal and retroperitoneal organs, with image documentation. COMPARISON: [facility], US, US ABDOMEN COMPLETE, 12/25/2021, 9:56. FINDINGS: Liver: Liver is normal in size and homogeneous in echotexture. Gallbladder: Gallbladder wall appears equivocally thickened but gallbladder is not fully distended. No gallstones. No pericholecystic fluid or sonographic Grey's sign. Biliary ducts: Intrahepatic bile ducts are non-dilated. Extrahepatic bile ducts are not visualized due to overlying bowel gas. Pancreas: Visualized portions of the pancreas are sonographically normal. Spleen: Spleen is normal in size and homogeneous in echotexture. Kidneys: Kidneys are normal in size and echotexture. Right kidney measures 9.8 cm long; left kidney measures 10.4 cm long. No hydronephrosis or nephrolithiasis. There is a 1.5 x 1.3 x 1.7 cm cyst in the superior pole of the left kidney. No solid masses. Aorta: Visualized aorta is normal in caliber at less than 3 cm. Echogenic plaques in proximal to mid aorta. Iliacs: Proximal common iliac arteries are normal in caliber at less than 2.5 cm. IVC: Intrahepatic inferior vena cava is patent. Miscellaneous: No free abdominal fluid. IMPRESSION: 1. A cause for left upper quadrant pain is not identified. 2. A simple appearing cyst in the superior pole of the left kidney. Dictated by: Paula Meek M.D. on 01/16/2023 at 8:21 Approved by: Paula Meek M.D. on 01/16/2023 at 8:26
== END ==
PROVIDERS: Family Provider Family Medicine; PCP Family Medicine; Referring Provider Physician Assistant; Visit Provider Physician Assistant
DX: N28.1 Cyst of kidney, acquired (principal); R10.12 Left upper quadrant pain
CPT/HCPCS: 76700

== ENCOUNTER → 2023-01-22 14:25 | Outpatient (CLI) | payer MEDICARE, OTHER, SELFPAY ==
--- NOTE | 2023-01-22 14:32 | DI.CT.S_ITS ---
PROCEDURE: CT THORACIC SPINE WO CON INDICATIONS: Thoracic fx - T9 TECHNIQUE: Noncontrast 3 mm thick sections acquired through the region of interest in the thoracic spine. Sagittal and coronal reformats were then constructed. For radiation dose reduction, the following was used: automated exposure control. COMPARISON: [facility], CR, XR THORACIC SPINE 3V, 01/02/2023, 9:51. [facility], CT, CT CHEST WO CON, 01/17/2022, 9:38. FINDINGS: Image quality: Excellent. Bones: A T7 fracture is again seen, with approximately 50% loss of height anteriorly. This is similar to the prior CT. There is a T9 anterior wedge deformity seen, which is new compared to the prior CT, although it is stable compared to the 01/02/2023 thoracic spine plain film, with 40-50% loss of height anteriorly. No new fractures are seen. Accentuated thoracic kyphosis is seen. Generalized degenerative changes are seen. No suspicious sclerotic or lytic bony lesions. Central spinal canal is of normal overall caliber. Soft tissues: No paravertebral masses or hematomas. Small bilateral pleural effusions are seen, right larger than left. A percutaneously placed aortic valve replacement can be seen. A pacer device is seen. There is moderate cardiomegaly. Atherosclerotic calcification is noted. IMPRESSION: Stable T7 and T9 anterior wedge deformities. There are small bilateral pleural effusions seen, right larger than left. There is moderate cardiomegaly. Additional findings: Pacer device Prosthetic aortic valve Dictated by: Yobany Galan M.D. on 01/22/2023 at 17:04 Approved by: Yobany Galan M.D. on 01/22/2023 at 17:12
--- NOTE | 2023-01-22 14:40 | DI.DEXA.S_ITS ---
Bone Density Report Name: CRISTI MCLAIN Age: 87 Sex: Female Ethnicity: White Date of : 1935 Indication: postmenopausal osteoporosis; prior fracture; Referring Provider: ELO SALES Study: Bone densitometry was performed. Exam Date: January 22, 2023 Accession number: [id number] Bone Density: Region BMD T-score Z-score Classification AP Spine(L1-L4) 0.630 -3.8 -0.9 Osteoporosis Femoral Neck (Left) 0.466 -3.4 -0.9 Osteoporosis Total Hip (Left) 0.579 -3.0 -0.6 Osteoporosis Femoral Neck (Right) 0.423 -3.8 -1.3 Osteoporosis Total Hip (Right) 0.555 -3.2 -0.8 Osteoporosis Total Hip Mean 0.567 -3.1 -0.7 Osteoporosis World Health Organization criteria for BMD impression classify patients as: Normal (T-score at or above -1.0), Osteopenia (T-score between -1.0 and -2.5), or Osteoporosis (T-score at or below -2.5). 10-year Fracture Risk: FRAX not reported because: Some T-score for Spine Total or Hip Total or Femoral Neck at or below -2.5 Prior hip or vertebral fracture Previous Exams: -- Region Exam Age BMD T-score BMD Change BMD Change Date g/cm2 vs Baseline vs Previous -- AP Spine (L1-L4) 01/22/2023 87 0.630 -3.8 -0.092 (-12.8%)# -0.092 (-12.8%)# 11/05/2011 76 0.722 -3.0 Total Hip(Left) 01/22/2023 87 0.579 -3.0 -0.161 (-21.8%)# -0.161 (-21.8%)# 11/05/2011 76 0.739 -1.7 Total Hip(Right) 01/22/2023 87 0.555 -3.2 -0.183 (-24.8%)# -0.183 (-24.8%)# 11/05/2011 76 0.738 -1.7 -- *Denotes significance at 95% confidence level, LSC for AP Spine = 0.022 g/cm2, LSC for Total Hip = 0.027 g/cm2 # Denotes dissimilar scan types or analysis methods Impression: The patient has established osteoporosis, based on the Total Spine T-score and the existence of a prior fracture. The patient has risk factors, including: previous fracture. No significant bone loss was observed. Discussion: HIGH RISK OF FRACTURE. BONE DENSITY IS UNDESIRABLY LOW AT ONE OR MORE SKELETAL SITES, CONSISTENT WITH POSTMENOPAUSAL OSTEOPOROSIS. This patient's lowest T-score, in a patient who has previously fractured, meets the World Health Organization's (WHO) criteria for severe osteoporosis. In untreated patients, the risk of osteoporotic fracture increases approximately two-fold for each 1.0 SD decrease in T-score. Low bone density is not the only risk factor for fracture; also consider factors such as patient's age, frailty or poor health, risk of falling, risk of injury, previous osteoporotic fracture, family history of osteoporosis, cigarette smoking, low body weight, etc. Not everyone with low bone mineral density has osteoporosis; osteomalacia and other metabolic bone disorders should also be considered. Patients who have osteoporosis should be evaluated for specific diseases and conditions (secondary causes) that may cause or contribute to bone loss. The [place] [employer] Endocrinologists (AACE) and National Osteoporosis Foundation (NOF) recommend pharmacologic intervention for all postmenopausal women with a previous hip or vertebral fracture and a T-score in this range. The patient should follow a healthful lifestyle (good nutrition with adequate calcium and vitamin D, and appropriate weight-bearing exercise). Follow-Up: Consider a repeat BMD and Vertebral Fracture Assessment (VFA) exam in 2 years or sooner if medically necessary, to reassess this patient's status. Reported by: SILKE ABERNATHY M.D. on 01/22/2023 3:11:00 PM.
== END ==
PROVIDERS: Family Provider Family Medicine; PCP Family Medicine; Referring Provider Physical Medicine & Rehabilitation; Visit Provider Physical Medicine & Rehabilitation
DX: S22.060A Wedge compression fracture of T7-T8 vertebra, initial encounter for closed fracture (principal); S22.070A Wedge compression fracture of T9-T10 vertebra, initial encounter for closed fracture; J90 Pleural effusion, not elsewhere classified; I51.7 Cardiomegaly; M40.204 Unspecified kyphosis, thoracic region; Z13.820 Encounter for screening for osteoporosis; M81.0 Age-related osteoporosis without current pathological fracture; Z78.0 Asymptomatic menopausal state; Z95.0 Presence of cardiac pacemaker; Z95.2 Presence of prosthetic heart valve
CPT/HCPCS: 72128; 77080

== ENCOUNTER 2023-01-26 10:30 | Outpatient (RCR) | payer MEDICARE, OTHER, SELFPAY ==
--- NOTE | 2022-12-04 18:52 | PT.OIE ---
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/22) Low back pain, unspecified (12/04/22) Pain in left leg (12/04/22) Other specified soft tissue disorders (12/04/22) Unsteadiness on feet (12/04/22) Past Medical History (Last Updated 11/20/22 @ 15:12 by Macarena Piña PA-C) Abdominal ascites Aortic valve stenosis (11/09/13) COPD exacerbation Foot deformities, congenital Hyperlipidemia Osteoporosis (~1989) Urinary incontinence Past Surgical History (Last Reviewed 03/31/22 @ 20:00 by Gabrielle Douglass DO) History of aortic valve replacement with bioprosthetic valve (2015) History of carpal tunnel release History of tonsillectomy Normal colonoscopy (2005) Personal history of tricuspid valve disease Visit Care Team Role Provider Type Jonn Rangel MD Attending Provider Physician Family Provider Primary Care Provider Referring Provider Specialty: Family Practice Address: [address] [place] [address] Email: [email or web address] Physical Therapy Initial Evaluation PT-OP-A Visit Information Start: 11/29/22 16:37 Freq: Status: Active Protocol: Document 12/04/22 09:55 LRN (Rec: 12/04/22 10:44 LRN [id number]) Out-Patient Physical Therapy Visit Information Visit Information Visit Type Initial Evaluation Visit Start Time 09:55 Visit Stop Time 10:42 Total Visit Minutes 47 Visit Number 1 Evaluation Information Evaluation Date 12/04/22 Precautions Precautions Per pt: Aortic valve replaced , Pacemaker-10/23/21, Aortic valve replacement, Cardiac ablation 10/28/21 several cardio conversions (last one before pacemaker placed); prior fractured L shoulder in January 2022 - still doing exercises. PT-OP-B Current Condition Start: 11/29/22 16:37 Freq: Status: Active Protocol: Document 12/04/22 09:55 LRN (Rec: 12/04/22 10:44 LRN [id number]) Current Condition History of Current Condition Onset Date 09/26/22 Current Complaints Back pain, L leg stiffness and lower leg edema. History of Current Condition Pt reports she was getting up from recliner and tripped over pillow landing on carpet. Wasn't in a brewster and was able to stand up and walk, but noticed immediate swelling in the LLE. Initially she couldn 't bend the L knee, but now is able to and reports no pain in the LE, only stiffness and swelling. She reports delayed compromise from not bending at the L knee causing onset of L LBP. Was on blood thinners when had accident and is still on blood thinners. Pt no longer complains of L knee pain, but only back pain. States everything takes a lot of time, dressing, putting on socks, bending, walking (less) , stretches/yoga - limited, and she has difficulty getting off the floor. She is able to sleep in bed on her back, but elevated on wedge. She only starts out with LBP. She sleeps on her back due to nighttime O2 needs. Pt reported PMH: fractured shoulder last January 2022. Social hx: Pt states she is active, lives alone in own home but her granddaughter has been living with her. Using heat and ice at home. Prior Treatments and Tests Pain medication, no longer taking. Now on advanced Tylenol. Treatment Goals Patient/Caregiver Goals Pt goal is to get the back pain resolved or where it is not a problem (be able to walk farther, resume yoga), and control pain w/o medications. 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 Although not mentioned as a goal she reports dysfunctions of: back pain makes everything takes a lot of time , dressing, putting on socks, bending, walking (less), stretches/yoga - limited, difficulty getting off the floor. 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 Does exercises for her shoulder and arms since fracture January 2022. Personal Factors Other Personal Factors That May Effect Cardiac pacemaker, cardiac Therapy/Recovery history, active with doing research with a discussion group 1x/month and another discussion group discussing books. PT-OP-C Subjective Start: 11/29/22 16:37 Freq: Status: Active Protocol: Document 12/04/22 09:55 LRN (Rec: 12/04/22 10:44 LRN [id number]) OP-PT Subjective Patient Comments Patient Comments Pt reports fall history. Patient Questionnaires Oswestry Low Back Index Oswestry Score 18 Oswestry Impairment 1 to 19% Impaired (Score 1-19) OP-PT Pain Assessment Pain Assessment Grid Paper Pain Assessment Grid Completed Yes Location L LE Pain Location Details Stiffness and edema in L lower leg Intensity 1 Scale Used Numeric (0 - 10) Description Aching Frequency Intermittent Low Back Pain Location Details Across low back at the level of L3-L4 Intensity 6 Description Aching Frequency Constant PT-OP-H Neuro Start: 11/29/22 16:37 Freq: Status: Active Protocol: Document 12/04/22 09:55 LRN (Rec: 12/04/22 10:44 LRN [id number]) Sensation Evaluation Comments Summary Comments Bilateral tingling in feet intermittently. Mostly on waking, then normalizes through the day. PT-OP-J Posture/Palpation/Skin Start: 11/29/22 16:37 Freq: Status: Active Protocol: Document 12/04/22 09:55 LRN (Rec: 12/04/22 10:44 LRN [id number]) Posture Evaluation Position Standing T-Spine Posture Increased Kyphosis L-Spine Posture Flattened Shoulder Posture (L) Elevated Pelvis Posture (R) Iliac Crest Superior Knee Posture (L) Neutral Comments Posture Comments Mild C-curve of thoracic spine with apex on L at T5-T6. Notable swelling in L lower leg. Palpation Assessment Location L leg Palpation Location Knee distally anterior Palpation Findings Edema,Soft Tissue Tightness Low Back Palpation Location Pain at level of L3, L4 Palpation Findings Muscle Guarding,Tenderness PT-OP-K Range of Motion Start: 11/29/22 16:37 Freq: Status: Active Protocol: Document 12/04/22 09:55 LRN (Rec: 12/04/22 10:44 LRN [id number]) Lumbar Spine Range of Motion Lumbar Spine Active Degrees Testing Position Standing Flexion 70 Extension 10 ROM Limitations Pain Knee Goniometric Range of Motion Knee Right Knee ROM WFL Yes Patient Position Semi-reclined Comments AROM is 0-126 Left Knee ROM WFL Yes Patient Position Semi-reclined Comments AROM is 0-126 PT-OP-L Special Tests Start: 11/29/22 16:37 Freq: Status: Active Protocol: Document 12/04/22 09:55 LRN (Rec: 12/04/22 10:44 LRN [id number]) Special Tests Lumbar Spine Special Tests Straight Leg Raise Test Results + L, - R Comments 60 L, 70 R. Manual Traction Test Results - Vertical Spine Loading Test Results + Comments onset LBP Slump Test Results - bilaterally Comments Hamstring tightness present. PT-OP-Q Treatments Start: 11/29/22 16:37 Freq: Status: Active Protocol: Document 12/04/22 09:55 LRN (Rec: 12/04/22 10:44 LRN [id number]) Self-Care/Home Management Treatment Education Other Education Discussed results of evaluation, goals, and plan of care (POC). Pt agreeable to goals and POC. PT-OP-T Assessment and Plan Start: 11/29/22 16:37 Freq: Status: Active Protocol: Document 12/04/22 09:55 LRN (Rec: 12/04/22 10:44 LRN [id number]) Physical Therapy Assessment Rehab Potential Rehabilitation Potential Excellent Evaluation Complexity Number of Personal Factors/Comorbidities 3 or More Number of Body Systems Impaired 4 or More Clinical Presentation at Evaluation Evolving Impairments Impairments Activity Tolerance,Edema,Pain, Posture Goals Three Impairment Decreased function Impairment AYESHA score is 18 (1-19% impaired, score 1-19). Pt goal is to get the back pain resolvedyoga), and control pain w/o medications. Short Term Goal (STG) Pt to walk farther and resume yoga. STG Duration 01/10/23 Care Home Goal (LTG) Improve function with improved AYESHA score of no greater than 10 (1-19% impaired, score 1-19 ). LTG Duration 02/13/23 Two Impairment LBP rated 6/10. Impairment Across LBP ~ level of L3-L4. Short Term Goal (STG) Decrease LBP to 3/10 and intermittent. STG Duration 01/10/23 Care Home Goal (LTG) Resolve LBP with minimal or no use of medications. LTG Duration 02/13/23 One Impairment Lacks appropriate self care HEP. Short Term Goal (STG) Pt educated in proper sitting and standing posture and L LE edema management. STG Duration 02/11/23 Care Home Goal (LTG) Pt will be educated in a self care HEP of low back and L knee flexibility and strengthening LTG Duration 02/13/23 Assessment Summary Assessment Pt is an 87 yo female who presents with mechanical and soft tissue related LBP across the LB at level of L3-L4. 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 She is being limited in her ability to do her yoga exercises and is currently only able to shoulder exercises from her past shoulder rehabilitation. She is no longer bothered by her L knee, and demonstrates normal mobility, but swelling is present in the L lower leg. I was not able to palpate a strong pedal pulse, but will assess further next visit. The pt reportedly has been, and is currently on blood thinners. The pt will benefit from skilled physical therapy to decrease her back pain and improve mobility for walking, return to yoga, improved function, education to improve posture and decrease LLE edema, and placement on a self care HEP. Physical Therapy Plan Frequency and Duration Frequency of Treatment 2x/Week Plan of Care Start Date 12/04/22 Plan of Care End Date 02/13/23 Therapeutic Interventions Therapeutic Interventions Home Exercise Program,Manual Therapy,Neuromuscular Re- education,Patient/Caregiver Education,Self-Care/Home Management,Soft Tissue Mobilization,Therapeutic Activities,Therapeutic Exercises Modalities Cold Pack/Ice Massage,Hot Packs Next Visit Focus/Plan Next Note Type Treatment Note Next Visit Plan NOTE: Pt w/pacemaker & Osteopenia, CHF, heart disease . Assess L LE: pedal pulses, LE DTR's, Trunk AROM (SB, rot), & if needed lumbar special tests. STM and education of pt in edema management and possibly self lymphatic massage or lymphatic L LE ex program. Pt education: posture & edema management. Manual: STM to low back; Ther Ex: Thoracic rot, LB flex/ext/rot, LE neural glides , core strengthening; Modalities of MH/Ice. No electric modalities due to pacemaker.
--- NOTE | 2022-12-04 18:53 | PT.OPPOC ---
Physical, Occupational & Speech Therapy At [facility] 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/22) Low back pain, unspecified (12/04/22) Pain in left leg (12/04/22) Other specified soft tissue disorders (12/04/22) Unsteadiness on feet (12/04/22) Visit Care Team Role Provider Type Jonn Rangel MD Attending Provider Physician Family Provider Primary Care Provider Referring Provider Specialty: Family Practice Address: [address] [place] [address], [id number] Email: [email or web address] Plan Of Care PT-OP-T Assessment and Plan Start: 11/29/22 16:37 Freq: Status: Active Protocol: Document 12/04/22 09:55 LRN (Rec: 12/04/22 10:44 LRN [id number]) Physical Therapy Assessment Rehab Potential Rehabilitation Potential Excellent Evaluation Complexity Number of Personal Factors/Comorbidities 3 or More Number of Body Systems Impaired 4 or More Clinical Presentation at Evaluation Evolving Impairments Impairments Activity Tolerance,Edema,Pain, Posture Goals Three Impairment Decreased function Impairment AYESHA score is 18 (1-19% impaired, score 1-19). Pt goal is to get the back pain resolvedyoga), and control pain w/o medications. Short Term Goal (STG) Pt to walk farther and resume yoga. STG Duration 01/10/23 Senior Living Goal (LTG) Improve function with improved AYESHA score of no greater than 10 (1-19% impaired, score 1-19 ). LTG Duration 02/13/23 Two Impairment LBP rated 6/10. Impairment Across LBP ~ level of L3-L4. Short Term Goal (STG) Decrease LBP to 3/10 and intermittent. STG Duration 01/10/23 Senior Living Goal (LTG) Resolve LBP with minimal or no use of medications. LTG Duration 02/13/23 One Impairment Lacks appropriate self care HEP. Short Term Goal (STG) Pt educated in proper sitting and standing posture and L LE edema management. STG Duration 02/11/23 Senior Living Goal (LTG) Pt will be educated in a self care HEP of low back and L knee flexibility and strengthening LTG Duration 02/13/23 Assessment Summary Assessment Pt is an 87 yo female who presents with mechanical and soft tissue related LBP across the LB at level of L3-L4. 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 She is being limited in her ability to do her yoga exercises and is currently only able to shoulder exercises from her past shoulder rehabilitation. She is no longer bothered by her L knee, and demonstrates normal mobility, but swelling is present in the L lower leg. I was not able to palpate a strong pedal pulse, but will assess further next visit. The pt reportedly has been, and is currently on blood thinners. The pt will benefit from skilled physical therapy to decrease her back pain and improve mobility for walking, return to yoga, improved function, education to improve posture and decrease LLE edema, and placement on a self care HEP. Physical Therapy Plan Frequency and Duration Frequency of Treatment 2x/Week Plan of Care Start Date 12/04/22 Plan of Care End Date 02/13/23 Therapeutic Interventions Therapeutic Interventions Home Exercise Program,Manual Therapy,Neuromuscular Re- education,Patient/Caregiver Education,Self-Care/Home Management,Soft Tissue Mobilization,Therapeutic Activities,Therapeutic Exercises Modalities Cold Pack/Ice Massage,Hot Packs Next Visit Focus/Plan Next Note Type Treatment Note Next Visit Plan NOTE: Pt w/pacemaker & Osteopenia, CHF, heart disease . Assess L LE: pedal pulses, LE DTR's, Trunk AROM (SB, rot), & if needed lumbar special tests. STM and education of pt in edema management and possibly self lymphatic massage or lymphatic L LE ex program. Pt education: posture & edema management. Manual: STM to low back; Ther Ex: Thoracic rot, LB flex/ext/rot, LE neural glides , core strengthening; Modalities of MH/Ice. No electric modalities due to pacemaker. Plan of Care Dates Plan of Care Start Date 12/04/22 Plan of Care End Date 02/13/23 Electronically Signed by: Elsa Correa, PT 12/04/22 5840 If you are in agreement with this Plan of Care, please return a signed and dated copy. I have reviewed this Plan of Care and certify that the skilled therapy services above are required to meet the patient?s needs. Physician Signature Date Printed Name and Credentials Clinical Instructor Signature Printed Name and Credentials
--- NOTE | 2022-12-09 17:13 | PT.OTN ---
Current Diagnoses Postural kyphosis, cervicothoracic region (12/09/22) Low back pain, unspecified (12/09/22) Pain in left leg (12/09/22) Other specified soft tissue disorders (12/09/22) Unsteadiness on feet (12/09/22) Physical Therapy Treatment Note PT-OP-A Visit Information Start: 11/29/22 16:37 Freq: Status: Active Protocol: Document 12/09/22 13:52 LRN (Rec: 12/09/22 14:34 LRN [id number]) Out-Patient Physical Therapy Visit Information Visit Information Visit Type Treatment Note Visit Start Time 13:52 Visit Stop Time 14:32 Total Visit Minutes 40 Visit Number 2 Evaluation Information Evaluation Date 12/04/22 Precautions Precautions Per pt: Aortic valve replaced , Pacemaker-10/23/21, Aortic valve replacement, Cardiac ablation 10/28/21 several cardio conversions (last one before pacemaker placed); prior fractured L shoulder in January 2022 - still doing exercises. PT-OP-B Current Condition Start: 11/29/22 16:37 Freq: Status: Active Protocol: Document 12/04/22 09:55 LRN (Rec: 12/04/22 10:44 LRN [id number]) Current Condition History of Current Condition Onset Date 09/26/22 Current Complaints Back pain, L leg stiffness and lower leg edema. History of Current Condition Pt reports she was getting up from recliner and tripped over pillow landing on carpet. Wasn't in a brewster and was able to stand up and walk, but noticed immediate swelling in the LLE. Initially she couldn 't bend the L knee, but now is able to and reports no pain in the LE, only stiffness and swelling. She reports delayed compromise from not bending at the L knee causing onset of L LBP. Was on blood thinners when had accident and is still on blood thinners. Pt no longer complains of L knee pain, but only back pain. States everything takes a lot of time, dressing, putting on socks, bending, walking (less) , stretches/yoga - limited, and she has difficulty getting off the floor. She is able to sleep in bed on her back, but elevated on wedge. She only starts out with LBP. She sleeps on her back due to nighttime O2 needs. Pt reported PMH: fractured shoulder last January 2022. Social hx: Pt states she is active, lives alone in own home but her granddaughter has been living with her. Using heat and ice at home. Prior Treatments and Tests Pain medication, no longer taking. Now on advanced Tylenol. Treatment Goals Patient/Caregiver Goals Pt goal is to get the back pain resolved or where it is not a problem (be able to walk farther, resume yoga), and control pain w/o medications. 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 Although not mentioned as a goal she reports dysfunctions of: back pain makes everything takes a lot of time , dressing, putting on socks, bending, walking (less), stretches/yoga - limited, difficulty getting off the floor. 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 Does exercises for her shoulder and arms since fracture January 2022. Personal Factors Other Personal Factors That May Effect Cardiac pacemaker, cardiac Therapy/Recovery history, active with doing research with a discussion group 1x/month and another discussion group discussing books. PT-OP-C Subjective Start: 11/29/22 16:37 Freq: Status: Active Protocol: Document 12/09/22 13:52 LRN (Rec: 12/09/22 14:34 LRN [id number]) OP-PT Subjective Patient Comments Patient Comments States yesterday she had a massage and found it to be wonderful. States the pain relief didn't last but was good. Pt was on her stomach for the massage. Pain rated 5 -6/10, ending pain is 4-5/10 awareness of discomfort. PT-OP-H Neuro Start: 11/29/22 16:37 Freq: Status: Active Protocol: Document 12/09/22 13:52 LRN (Rec: 12/09/22 16:51 LRN [id number]) Deep Tendon Reflex & Clonus Assessment Deep Tendon Reflex Right Achilles Deep Tendon Reflex 2+ Normal Left Achilles Deep Tendon Reflex 1+ Diminished Bilateral Patellar Deep Tendon Reflex 3+ Normal But Brisk PT-OP-J Posture/Palpation/Skin Start: 11/29/22 16:37 Freq: Status: Active Protocol: Document 12/04/22 09:55 LRN (Rec: 12/04/22 10:44 LRN [id number]) Posture Evaluation Position Standing T-Spine Posture Increased Kyphosis L-Spine Posture Flattened Shoulder Posture (L) Elevated Pelvis Posture (R) Iliac Crest Superior Knee Posture (L) Neutral Comments Posture Comments Mild C-curve of thoracic spine with apex on L at T5-T6. Notable swelling in L lower leg. Palpation Assessment Location L leg Palpation Location Knee distally anterior Palpation Findings Edema,Soft Tissue Tightness Low Back Palpation Location Pain at level of L3, L4 Palpation Findings Muscle Guarding,Tenderness PT-OP-K Range of Motion Start: 11/29/22 16:37 Freq: Status: Active Protocol: Document 12/04/22 09:55 LRN (Rec: 12/04/22 10:44 LRN [id number]) Lumbar Spine Range of Motion Lumbar Spine Active Degrees Testing Position Standing Flexion 70 Extension 10 ROM Limitations Pain Knee Goniometric Range of Motion Knee Right Knee ROM WFL Yes Patient Position Semi-reclined Comments AROM is 0-126 Left Knee ROM WFL Yes Patient Position Semi-reclined Comments AROM is 0-126 PT-OP-L Special Tests Start: 11/29/22 16:37 Freq: Status: Active Protocol: Document 12/09/22 13:52 LRN (Rec: 12/09/22 16:53 LRN [id number]) Special Tests Lumbar Spine Special Tests Slump Test Results + L, neutral tension R Comments L LE testing resulted in onset of R low back pain. PT-OP-Q Treatments Start: 11/29/22 16:37 Freq: Status: Active Protocol: Document 12/09/22 13:52 LRN (Rec: 12/09/22 14:34 LRN [id number]) Therapeutic Exercises Sitting Exercises Sciatic n glide Sitting Exercise Name Sciatic slider: Kick the head off Side bilateral Reps/Minutes 5x 2 each Other Exercises Semi-reclined upper body rot Other Exercise Name Semi-reclined upper body 20 deg's rot (arms to ceiling > side to side) Side bilateral Reps/Minutes 15x Comments Cuing to follow hands with head and to breath. Semi-reclined trunk rot Other Exercise Name Semi-reclined knee rolls - 20 deg's rotation Side bilateral Equipment Used ice to back (altenating with MHP) Reps/Minutes 15x Semi-reclined bridging Other Exercise Name Semi-reclined bridging Equipment Used ice to back (altenating with MHP) Reps/Minutes 10x Semi-reclined trunk ext Other Exercise Name Semi-reclined trunk Ext Equipment Used MH to back Reps/Minutes 5 SH x 15 Self-Care/Home Management Treatment Education Patient Education Home Exercise Program Activities Self-Care/Home Management Activities Issued & reviewed HEP: Sciatic Slump sliders, Supine: bridging and trunk extension. PT-OP-T Assessment and Plan Start: 11/29/22 16:37 Freq: Status: Active Protocol: Document 12/09/22 13:52 LRN (Rec: 12/09/22 14:34 LRN [id number]) Physical Therapy Assessment Goals Three Impairment Decreased function Impairment AYESHA score is 18 (1-19% impaired, score 1-19). Pt goal is to get the back pain resolvedyoga), and control pain w/o medications. Short Term Goal (STG) Pt to walk farther and resume yoga. STG Duration 01/10/23 Supervising Film Or Videotape Editor Goal (LTG) Improve function with improved AYESHA score of no greater than 10 (1-19% impaired, score 1-19 ). LTG Duration 02/13/23 Two Impairment LBP rated 6/10. Impairment Across LBP ~ level of L3-L4. Short Term Goal (STG) Decrease LBP to 3/10 and intermittent. STG Duration 01/10/23 Supervising Film Or Videotape Editor Goal (LTG) Resolve LBP with minimal or no use of medications. LTG Duration 02/13/23 One Impairment Lacks appropriate self care HEP. Short Term Goal (STG) Pt educated in proper sitting and standing posture and L LE edema management. STG Duration 02/11/23 Mcfp Goal (LTG) Pt will be educated in a self care HEP of low back and L knee flexibility and strengthening LTG Duration 02/13/23 Assessment Summary Assessment Pt moves slowly through positional changes and exercise due to LBP and comorbidities. Discomfort with KTC stretch and no pain with supine isometric lumbar extension; therefore [place] extension ex's are better tolerated. Pt is + with provocative testing indicating possible neural involvement of the L/S. Gabe patellar DTR' s are hyper reflexive (L3, L4) - ?nerve compression, and decreased L achilles (S1, S2) ?sciatic nerve pathology. Physical Therapy Plan Frequency and Duration Frequency of Treatment 2x/Week Plan of Care Start Date 12/04/22 Plan of Care End Date 02/13/23 Next Visit Focus/Plan Next Note Type Treatment Note Next Visit Plan NOTE: Pt w/pacemaker & Osteopenia, CHF, heart disease . Assess response to previous exercises. Educate pt in proper sitting/ standing posture. Assess L LE: pedal pulses, & Trunk AROM (SB, rot) with ROM ex if needed. Education of pt in edema management and possibly self lymphatic massage or lymphatic L LE ex program. Manual: STM to low back; Cont Ex: Thoracic rot, LB flex/ext/rot, LE neural glides ; Add: core strengthening Modalities of MH/Ice. No electric modalities due to pacemaker.
--- NOTE | 2022-12-12 13:30 | PT.OTN ---
Current Diagnoses Postural kyphosis, cervicothoracic region (12/12/22) Low back pain, unspecified (12/12/22) Pain in left leg (12/12/22) Other specified soft tissue disorders (12/12/22) Unsteadiness on feet (12/12/22) Physical Therapy Treatment Note PT-OP-A Visit Information Start: 11/29/22 16:37 Freq: Status: Active Protocol: Document 12/12/22 11:30 NBM (Rec: 12/12/22 13:48 NBM [id number]) Out-Patient Physical Therapy Visit Information Visit Information Visit Type Treatment Note Visit Start Time 11:32 Visit Stop Time 12:12 Total Visit Minutes 40 Visit Number 3 Number of DATABASE COORDINATOR Visits 1 Evaluation Information Evaluation Date 12/04/22 Precautions Precautions Per pt: Aortic valve replaced , Pacemaker-10/23/21, Aortic valve replacement, Cardiac ablation 10/28/21 several cardio conversions (last one before pacemaker placed); prior fractured L shoulder in January 2022 - still doing exercises. PT-OP-B Current Condition Start: 11/29/22 16:37 Freq: Status: Active Protocol: Document 12/04/22 09:55 LRN (Rec: 12/04/22 10:44 LRN [id number]) Current Condition History of Current Condition Onset Date 09/26/22 Current Complaints Back pain, L leg stiffness and lower leg edema. History of Current Condition Pt reports she was getting up from recliner and tripped over pillow landing on carpet. Wasn't in a brewster and was able to stand up and walk, but noticed immediate swelling in the LLE. Initially she couldn 't bend the L knee, but now is able to and reports no pain in the LE, only stiffness and swelling. She reports delayed compromise from not bending at the L knee causing onset of L LBP. Was on blood thinners when had accident and is still on blood thinners. Pt no longer complains of L knee pain, but only back pain. States everything takes a lot of time, dressing, putting on socks, bending, walking (less) , stretches/yoga - limited, and she has difficulty getting off the floor. She is able to sleep in bed on her back, but elevated on wedge. She only starts out with LBP. She sleeps on her back due to nighttime O2 needs. Pt reported PMH: fractured shoulder last January 2022. Social hx: Pt states she is active, lives alone in own home but her granddaughter has been living with her. Using heat and ice at home. Prior Treatments and Tests Pain medication, no longer taking. Now on advanced Tylenol. Treatment Goals Patient/Caregiver Goals Pt goal is to get the back pain resolved or where it is not a problem (be able to walk farther, resume yoga), and control pain w/o medications. 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 Although not mentioned as a goal she reports dysfunctions of: back pain makes everything takes a lot of time , dressing, putting on socks, bending, walking (less), stretches/yoga - limited, difficulty getting off the floor. 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 Does exercises for her shoulder and arms since fracture January 2022. Personal Factors Other Personal Factors That May Effect Cardiac pacemaker, cardiac Therapy/Recovery history, active with doing research with a discussion group 1x/month and another discussion group discussing books. PT-OP-C Subjective Start: 11/29/22 16:37 Freq: Status: Active Protocol: Document 12/12/22 11:30 NBM (Rec: 12/12/22 13:48 NBM [id number]) OP-PT Subjective Patient Comments Patient Comments Pt reports she is very aware of her back today. She states she was very sore after her last PT appointment and tried the ex's on her back twice but stopped them due to pain. PT-OP-H Neuro Start: 11/29/22 16:37 Freq: Status: Active Protocol: Document 12/09/22 13:52 LRN (Rec: 12/09/22 16:51 LRN [id number]) Deep Tendon Reflex & Clonus Assessment Deep Tendon Reflex Right Achilles Deep Tendon Reflex 2+ Normal Left Achilles Deep Tendon Reflex 1+ Diminished Bilateral Patellar Deep Tendon Reflex 3+ Normal But Brisk PT-OP-J Posture/Palpation/Skin Start: 11/29/22 16:37 Freq: Status: Active Protocol: Document 12/04/22 09:55 LRN (Rec: 12/04/22 10:44 LRN [id number]) Posture Evaluation Position Standing T-Spine Posture Increased Kyphosis L-Spine Posture Flattened Shoulder Posture (L) Elevated Pelvis Posture (R) Iliac Crest Superior Knee Posture (L) Neutral Comments Posture Comments Mild C-curve of thoracic spine with apex on L at T5-T6. Notable swelling in L lower leg. Palpation Assessment Location L leg Palpation Location Knee distally anterior Palpation Findings Edema,Soft Tissue Tightness Low Back Palpation Location Pain at level of L3, L4 Palpation Findings Muscle Guarding,Tenderness PT-OP-K Range of Motion Start: 11/29/22 16:37 Freq: Status: Active Protocol: Document 12/04/22 09:55 LRN (Rec: 12/04/22 10:44 LRN [id number]) Lumbar Spine Range of Motion Lumbar Spine Active Degrees Testing Position Standing Flexion 70 Extension 10 ROM Limitations Pain Knee Goniometric Range of Motion Knee Right Knee ROM WFL Yes Patient Position Semi-reclined Comments AROM is 0-126 Left Knee ROM WFL Yes Patient Position Semi-reclined Comments AROM is 0-126 PT-OP-L Special Tests Start: 11/29/22 16:37 Freq: Status: Active Protocol: Document 12/09/22 13:52 LRN (Rec: 12/09/22 16:53 LRN [id number]) Special Tests Lumbar Spine Special Tests Slump Test Results + L, neutral tension R Comments L LE testing resulted in onset of R low back pain. PT-OP-Q Treatments Start: 11/29/22 16:37 Freq: Status: Active Protocol: Document 12/12/22 11:30 NBM (Rec: 12/12/22 13:48 NBM [id number]) Therapeutic Exercises Sidelying Exercises open book Side bilateral Reps/Minutes x10 ea Comments cues for TrA, no breathholding Sitting Exercises Sciatic n glide Sitting Exercise Name Sciatic slider: Kick the head off Side bilateral Reps/Minutes 5x 2 each Comments cues for grabbing behind knee - improves lumbar hyperextension Other Exercises Semi-reclined upper body rot Other Exercise Name Semi-reclined upper body 20 deg's rot (arms to ceiling > side to side) Side bilateral Reps/Minutes 15x Comments Cuing to follow hands with head and to breath. Semi-reclined bridging Other Exercise Name Supine>Semi-reclined bridging Equipment Used ice to back (altenating with MHP) Reps/Minutes 10x Comments cued breathing - improved tolerance Self-Care/Home Management Treatment Education Patient Education Home Exercise Program Other Education Significant time spent educating pt on core anatomy and self-monitoring for Transverse abdominus activation, as well as importance of not breathholding w/ ex's. I/s pt in exhalation w/ effort with positive feedback response. PT-OP-T Assessment and Plan Start: 11/29/22 16:37 Freq: Status: Active Protocol: Document 12/12/22 11:30 NBM (Rec: 12/12/22 13:48 NB [id number]) Physical Therapy Assessment Impairments Impairments Activity Tolerance,Edema,Pain, Posture Goals Three Impairment Decreased function Impairment AYESHA score is 18 (1-19% impaired, score 1-19). Pt goal is to get the back pain resolvedyoga), and control pain w/o medications. Short Term Goal (STG) Pt to walk farther and resume yoga. STG Duration 01/10/23 Usp Goal (LTG) Improve function with improved AYESHA score of no greater than 10 (1-19% impaired, score 1-19 ). LTG Duration 02/13/23 Two Impairment LBP rated 6/10. Impairment Across LBP ~ level of L3-L4. Short Term Goal (STG) Decrease LBP to 3/10 and intermittent. 12/12/22: With cues for Transverse abdominus activation and breathing pt is able to perform HEP AROM lumbar bridging and AROM lumbar pelvic tilt ant w/out increase in baseline symptoms. STG Duration 01/10/23 Aquatic Biologist Goal (LTG) Resolve LBP with minimal or no use of medications. LTG Duration 02/13/23 One Impairment Lacks appropriate self care HEP. Short Term Goal (STG) Pt educated in proper sitting and standing posture and L LE edema management. STG Duration 02/11/23 Aquatic Biologist Goal (LTG) Pt will be educated in a self care HEP of low back and L knee flexibility and strengthening 12/12/22: With cues for Transverse abdominus activation and breathing Celena is able to perform HEP AROM lumbar bridging and AROM lumbar pelvic tilt ant w/out increase in baseline symptoms. LTG Duration 02/13/23 Assessment Summary Assessment Significant time spent educating pt on core anatomy and self-monitoring for Transverse abdominus activation, as well as importance of not breathholding w/ ex's. I/s pt in exhalation w/ effort with positive feedback response. With cues for Transverse abdominus activation and breathing Celena is able to perform HEP AROM lumbar bridging and AROM lumbar pelvict tilt ant w/out increase in baseline symptoms. She is able to perform R sidelying Open book ex with cues for gentle TrA activation and breathing but is challenging w/L sidelying d/t LBP requiring more cues for breathholding. Physical Therapy Plan Frequency and Duration Frequency of Treatment 2x/Week Plan of Care Start Date 12/04/22 Plan of Care End Date 02/13/23 Therapeutic Interventions Therapeutic Interventions Home Exercise Program,Manual Therapy,Neuromuscular Re- education,Patient/Caregiver Education,Self-Care/Home Management,Soft Tissue Mobilization,Therapeutic Activities,Therapeutic Exercises Modalities Cold Pack/Ice Massage,Hot Packs Next Visit Focus/Plan Next Note Type Treatment Note Next Visit Plan NOTE: Pt w/pacemaker & Osteopenia, CHF, heart disease . Assess response to previous exercises. Educate pt in proper sitting/ standing posture. Assess L LE: pedal pulses, & Trunk AROM (SB, rot) with ROM ex if needed. Education of pt in edema management and possibly self lymphatic massage or lymphatic L LE ex program. Manual: STM to low back; Cont Ex: Thoracic rot, LB flex/ext/rot, LE neural glides ; Add: core strengthening Modalities of MH/Ice. No electric modalities due to pacemaker.
--- NOTE | 2022-12-23 13:45 | PT.OTN ---
Current Diagnoses Postural kyphosis, cervicothoracic region (12/23/22) Low back pain, unspecified (12/23/22) Pain in left leg (12/23/22) Other specified soft tissue disorders (12/23/22) Unsteadiness on feet (12/23/22) Physical Therapy Treatment Note PT-OP-A Visit Information Start: 11/29/22 16:37 Freq: Status: Active Protocol: Document 12/23/22 11:30 NBM (Rec: 01/27/23 15:47 NBM [id number]) Out-Patient Physical Therapy Visit Information Visit Information Visit Type Treatment Note Visit Start Time 11:32 Visit Stop Time 12:20 Total Visit Minutes 48 Visit Number 4 Number of FAGOT MAKER Visits 2 Evaluation Information Evaluation Date 12/04/22 Precautions Precautions Per pt: Aortic valve replaced , Pacemaker-10/23/21, Aortic valve replacement, Cardiac ablation 10/28/21 several cardio conversions (last one before pacemaker placed); prior fractured L shoulder in January 2022 - still doing exercises. PT-OP-B Current Condition Start: 11/29/22 16:37 Freq: Status: Active Protocol: Document 12/04/22 09:55 LRN (Rec: 12/04/22 10:44 LRN [id number]) Current Condition History of Current Condition Onset Date 09/26/22 Current Complaints Back pain, L leg stiffness and lower leg edema. History of Current Condition Pt reports she was getting up from recliner and tripped over pillow landing on carpet. Wasn't in a brewster and was able to stand up and walk, but noticed immediate swelling in the LLE. Initially she couldn 't bend the L knee, but now is able to and reports no pain in the LE, only stiffness and swelling. She reports delayed compromise from not bending at the L knee causing onset of L LBP. Was on blood thinners when had accident and is still on blood thinners. Pt no longer complains of L knee pain, but only back pain. States everything takes a lot of time, dressing, putting on socks, bending, walking (less) , stretches/yoga - limited, and she has difficulty getting off the floor. She is able to sleep in bed on her back, but elevated on wedge. She only starts out with LBP. She sleeps on her back due to nighttime O2 needs. Pt reported PMH: fractured shoulder last January 2022. Social hx: Pt states she is active, lives alone in own home but her granddaughter has been living with her. Using heat and ice at home. Prior Treatments and Tests Pain medication, no longer taking. Now on advanced Tylenol. Treatment Goals Patient/Caregiver Goals Pt goal is to get the back pain resolved or where it is not a problem (be able to walk farther, resume yoga), and control pain w/o medications. 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 Although not mentioned as a goal she reports dysfunctions of: back pain makes everything takes a lot of time , dressing, putting on socks, bending, walking (less), stretches/yoga - limited, difficulty getting off the floor. 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 Does exercises for her shoulder and arms since fracture January 2022. Personal Factors Other Personal Factors That May Effect Cardiac pacemaker, cardiac Therapy/Recovery history, active with doing research with a discussion group 1x/month and another discussion group discussing books. PT-OP-C Subjective Start: 11/29/22 16:37 Freq: Status: Active Protocol: Document 12/23/22 11:30 NBM (Rec: 01/27/23 15:47 [facility] [id number]) OP-PT Subjective Patient Comments Patient Comments Pt reports she is in a lot of pain today in her back and neck, and she has swelling in her L leg. PT-OP-H Neuro Start: 11/29/22 16:37 Freq: Status: Active Protocol: Document 12/09/22 13:52 LRN (Rec: 12/09/22 16:51 LRN [id number]) Deep Tendon Reflex & Clonus Assessment Deep Tendon Reflex Right Achilles Deep Tendon Reflex 2+ Normal Left Achilles Deep Tendon Reflex 1+ Diminished Bilateral Patellar Deep Tendon Reflex 3+ Normal But Brisk PT-OP-J Posture/Palpation/Skin Start: 11/29/22 16:37 Freq: Status: Active Protocol: Document 12/04/22 09:55 LRN (Rec: 12/04/22 10:44 LRN [id number]) Posture Evaluation Position Standing T-Spine Posture Increased Kyphosis L-Spine Posture Flattened Shoulder Posture (L) Elevated Pelvis Posture (R) Iliac Crest Superior Knee Posture (L) Neutral Comments Posture Comments Mild C-curve of thoracic spine with apex on L at T5-T6. Notable swelling in L lower leg. Palpation Assessment Location L leg Palpation Location Knee distally anterior Palpation Findings Edema,Soft Tissue Tightness Low Back Palpation Location Pain at level of L3, L4 Palpation Findings Muscle Guarding,Tenderness PT-OP-K Range of Motion Start: 11/29/22 16:37 Freq: Status: Active Protocol: Document 12/04/22 09:55 LRN (Rec: 12/04/22 10:44 LRN [id number]) Lumbar Spine Range of Motion Lumbar Spine Active Degrees Testing Position Standing Flexion 70 Extension 10 ROM Limitations Pain Knee Goniometric Range of Motion Knee Right Knee ROM WFL Yes Patient Position Semi-reclined Comments AROM is 0-126 Left Knee ROM WFL Yes Patient Position Semi-reclined Comments AROM is 0-126 PT-OP-L Special Tests Start: 11/29/22 16:37 Freq: Status: Active Protocol: Document 12/09/22 13:52 LRN (Rec: 12/09/22 16:53 LRN [id number]) Special Tests Lumbar Spine Special Tests Slump Test Results + L, neutral tension R Comments L LE testing resulted in onset of R low back pain. PT-OP-Q Treatments Start: 11/29/22 16:37 Freq: Status: Active Protocol: Document 12/23/22 11:30 NBM (Rec: 01/27/23 15:47 NBM [id number]) Therapeutic Exercises Supine Exercises chin tuck Supine Exercise Name supine chin tuck - HEP Reps/Minutes 10 x5SH Comments cues for ears over shoulders not head nod PPT Supine Exercise Name posterior pelvic tilt - HEP Reps/Minutes 10 x5SH Comments positive feedback response [place] shoulder ext/scap retract Supine Exercise Name [place] shoulder ext/scap retrac Equipment Used Cold pack alt with moist heat Reps/Minutes 5 SH reps - 3' Comments semi-reclined today - no increase in pain, vc chin tuck & excessive UT Sidelying Exercises open book Side bilateral Reps/Minutes x5 ea Comments cues for TrA, no breathholding , dc'd d/t pt's c/o increased pain Sitting Exercises Chin tuck Sitting Exercise Name HEP Reps/Minutes 10 x5SH Comments cues for ears over shoulders not head nod Standing Exercises Wall Posture Standing Exercise Name HEP Equipment Used wall Reps/Minutes x2 min Comments cues for chin tuck - positive feedback response Other Exercises Semi-reclined upper body rot Other Exercise Name Semi-reclined upper body 20 deg's rot (arms to ceiling > side to side) Side bilateral Reps/Minutes 15x Comments Cuing to follow hands with head and to breathe. Semi-reclined trunk rot Other Exercise Name Semi-reclined knee rolls - 20 deg's rotation Side bilateral Equipment Used ice to back (altenating with MHP) Reps/Minutes 15x Comments cues for no breathholding Semi-reclined bridging Other Exercise Name Semi-reclined bridging Equipment Used ice to back (altenating with MHP) Reps/Minutes 10x Comments cued UT overactivation and breathing - improved tolerance Semi-reclined trunk ext Other Exercise Name Semi-reclined trunk Ext Equipment Used MH to back Reps/Minutes 5 SH x 15 Comments cues for chin tuck & UT overactivation Manual Therapy Treatment Soft Tissue Mobilization Lumbar Paraspinals Body Location R QL, B paraspinals Mobilization Type Rolling,Strumming,Sustained Pressure Body Position Sidelying Comments Manual stretch to R QL Thoracic Paraspinals Body Location L Thoracic Paraspinals (T10- T11 focus) Mobilization Type Strumming,Sustained Pressure, Trigger Point Release Intensity/Depth Moderate Body Position Sidelying Self-Care/Home Management Treatment Education Patient Education Home Exercise Program,Posture Other Education HEP review with emphasis on gentle, pain-free ROM, breathwork, and posture. Added to HEP: Wall posture drill, PPT, supine/seated Chin tucks - HO given. Pt education in sitting and standing posture with emphasis on chin tuck, scapular retraction and Transverse abdominus activation for improving core stability and upright posture - HOs given. PT-OP-R Modalities Start: 11/29/22 16:37 Freq: Status: Active Protocol: Document 12/23/22 11:30 NBM (Rec: 01/27/23 15:47 NBM [id number]) Hot Pack/Cold Pack Treatment Cold Pack Location Midback used during pt education/self care PT-OP-T Assessment and Plan Start: 11/29/22 16:37 Freq: Status: Active Protocol: Document 12/23/22 11:30 NB (Rec: 01/27/23 15:47 NB [id number]) Physical Therapy Assessment Impairments Impairments Activity Tolerance,Edema,Pain, Posture Goals Three Impairment Decreased function Impairment AYESHA score is 18 (1-19% impaired, score 1-19). Pt goal is to get the back pain resolvedyoga), and control pain w/o medications. Short Term Goal (STG) Pt to walk farther and resume yoga. STG Duration 01/10/23 Construction Administrator Goal (LTG) Improve function with improved AYESHA score of no greater than 10 (1-19% impaired, score 1-19 ). LTG Duration 02/13/23 Two Impairment LBP rated 6/10. Impairment Across LBP ~ level of L3-L4. Short Term Goal (STG) Decrease LBP to 3/10 and intermittent. 12/12/22: With cues for Transverse abdominus activation and breathing pt is able to perform HEP AROM lumbar bridging and AROM lumbar pelvic tilt ant w/out increase in baseline symptoms. STG Duration 01/10/23 Construction Administrator Goal (LTG) Resolve LBP with minimal or no use of medications. LTG Duration 02/13/23 One Impairment Lacks appropriate self care HEP. Short Term Goal (STG) Pt educated in proper sitting and standing posture and L LE edema management. STG Duration 02/11/23 Nursing Home Goal (LTG) Pt will be educated in a self care HEP of low back and L knee flexibility and strengthening 12/12/22: With cues for Transverse abdominus activation and breathing Celena is able to perform HEP AROM lumbar bridging and AROM lumbar pelvic tilt ant w/out increase in baseline symptoms. LTG Duration 02/13/23 Assessment Summary Assessment Celena presents today with ongoing thoracolumbar pain. Treatment focus on HEP review, postural educaton and manual therapy with focus on thoracic paraspinals - palpable tension improves with manual therapy. Pt requires initial cueing for Upper trapezius overactivation and chin tuck. Pain apprehension with movement may be contributing to pt's need for consistent cues for no breathholding, but she demonstrates improved self-awareness of breathwork and recruitment of Transverse abdominus with ex's since last visit 12/12/22. HEP review with emphasis on gentle, pain- free ROM, breathwork, and posture. Added to HEP: Wall posture drill, PPT, supine/ seated Chin tucks - HO given. Pt education in sitting and standing posture with emphasis on chin tuck, scapular retraction and Transverse abdominus activation for improving core stability and upright posture - HOs given. Physical Therapy Plan Frequency and Duration Frequency of Treatment 2x/Week Plan of Care Start Date 12/04/22 Plan of Care End Date 02/13/23 Therapeutic Interventions Therapeutic Interventions Home Exercise Program,Manual Therapy,Neuromuscular Re- education,Patient/Caregiver Education,Self-Care/Home Management,Soft Tissue Mobilization,Therapeutic Activities,Therapeutic Exercises Modalities Cold Pack/Ice Massage,Hot Packs Next Visit Focus/Plan Next Note Type Treatment Note Next Visit Plan NOTE: Pt w/pacemaker & Osteopenia, CHF, heart disease . Assess response to previous exercises. Review proper sitting/standing posture and provide HO. Assess L LE: pedal pulses, & Trunk AROM (SB, rot) with ROM ex if needed. Education of pt in edema management and possibly self lymphatic massage or lymphatic L LE ex program. Manual: STM to low back; Cont Ex: Thoracic rot, LB flex/ext/rot, LE neural glides ; Add: core strengthening Modalities of MH/Ice. No electric modalities due to pacemaker.
--- NOTE | 2022-12-23 13:45 | PT.OTN ---
Current Diagnoses Postural kyphosis, cervicothoracic region (12/23/22) Low back pain, unspecified (12/23/22) Pain in left leg (12/23/22) Other specified soft tissue disorders (12/23/22) Unsteadiness on feet (12/23/22) Physical Therapy Treatment Note PT-OP-A Visit Information Start: 11/29/22 16:37 Freq: Status: Active Protocol: Document 12/23/22 11:30 NBM (Rec: 01/27/23 15:47 NBM [id number]) Out-Patient Physical Therapy Visit Information Visit Information Visit Type Treatment Note Visit Start Time 11:32 Visit Stop Time 12:20 Total Visit Minutes 48 Visit Number 4 Number of PROPERTY STAFF ACCOUNTANT Visits 2 Evaluation Information Evaluation Date 12/04/22 Precautions Precautions Per pt: Aortic valve replaced , Pacemaker-10/23/21, Aortic valve replacement, Cardiac ablation 10/28/21 several cardio conversions (last one before pacemaker placed); prior fractured L shoulder in January 2022 - still doing exercises. PT-OP-B Current Condition Start: 11/29/22 16:37 Freq: Status: Active Protocol: Document 12/04/22 09:55 LRN (Rec: 12/04/22 10:44 LRN [id number]) Current Condition History of Current Condition Onset Date 09/26/22 Current Complaints Back pain, L leg stiffness and lower leg edema. History of Current Condition Pt reports she was getting up from recliner and tripped over pillow landing on carpet. Wasn't in a brewster and was able to stand up and walk, but noticed immediate swelling in the LLE. Initially she couldn 't bend the L knee, but now is able to and reports no pain in the LE, only stiffness and swelling. She reports delayed compromise from not bending at the L knee causing onset of L LBP. Was on blood thinners when had accident and is still on blood thinners. Pt no longer complains of L knee pain, but only back pain. States everything takes a lot of time, dressing, putting on socks, bending, walking (less) , stretches/yoga - limited, and she has difficulty getting off the floor. She is able to sleep in bed on her back, but elevated on wedge. She only starts out with LBP. She sleeps on her back due to nighttime O2 needs. Pt reported PMH: fractured shoulder last January 2022. Social hx: Pt states she is active, lives alone in own home but her granddaughter has been living with her. Using heat and ice at home. Prior Treatments and Tests Pain medication, no longer taking. Now on advanced Tylenol. Treatment Goals Patient/Caregiver Goals Pt goal is to get the back pain resolved or where it is not a problem (be able to walk farther, resume yoga), and control pain w/o medications. She understands it might take her awhile to be able to start doing [employer] ( vacumming, assisted gardening - raised and low on ground garden beds). Although not mentioned as a goal she reports dysfunctions of: back pain makes everything takes a lot of time , dressing, putting on socks, bending, walking (less), stretches/yoga - limited, difficulty getting off the floor. 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 Does exercises for her shoulder and arms since fracture January 2022. Personal Factors Other Personal Factors That May Effect Cardiac pacemaker, cardiac Therapy/Recovery history, active with doing research with a discussion group 1x/month and another discussion group discussing books. PT-OP-C Subjective Start: 11/29/22 16:37 Freq: Status: Active Protocol: Document 12/23/22 11:30 NBM (Rec: 01/27/23 15:47 [facility] [id number]) OP-PT Subjective Patient Comments Patient Comments Pt reports she is in a lot of pain today in her back and neck, and she has swelling in her L leg. PT-OP-H Neuro Start: 11/29/22 16:37 Freq: Status: Active Protocol: Document 12/09/22 13:52 LRN (Rec: 12/09/22 16:51 LRN [id number]) Deep Tendon Reflex & Clonus Assessment Deep Tendon Reflex Right Achilles Deep Tendon Reflex 2+ Normal Left Achilles Deep Tendon Reflex 1+ Diminished Bilateral Patellar Deep Tendon Reflex 3+ Normal But Brisk PT-OP-J Posture/Palpation/Skin Start: 11/29/22 16:37 Freq: Status: Active Protocol: Document 12/04/22 09:55 LRN (Rec: 12/04/22 10:44 LRN [id number]) Posture Evaluation Position Standing T-Spine Posture Increased Kyphosis L-Spine Posture Flattened Shoulder Posture (L) Elevated Pelvis Posture (R) Iliac Crest Superior Knee Posture (L) Neutral Comments Posture Comments Mild C-curve of thoracic spine with apex on L at T5-T6. Notable swelling in L lower leg. Palpation Assessment Location L leg Palpation Location Knee distally anterior Palpation Findings Edema,Soft Tissue Tightness Low Back Palpation Location Pain at level of L3, L4 Palpation Findings Muscle Guarding,Tenderness PT-OP-K Range of Motion Start: 11/29/22 16:37 Freq: Status: Active Protocol: Document 12/04/22 09:55 LRN (Rec: 12/04/22 10:44 LRN [id number]) Lumbar Spine Range of Motion Lumbar Spine Active Degrees Testing Position Standing Flexion 70 Extension 10 ROM Limitations Pain Knee Goniometric Range of Motion Knee Right Knee ROM WFL Yes Patient Position Semi-reclined Comments AROM is 0-126 Left Knee ROM WFL Yes Patient Position Semi-reclined Comments AROM is 0-126 PT-OP-L Special Tests Start: 11/29/22 16:37 Freq: Status: Active Protocol: Document 12/09/22 13:52 LRN (Rec: 12/09/22 16:53 LRN [id number]) Special Tests Lumbar Spine Special Tests Slump Test Results + L, neutral tension R Comments L LE testing resulted in onset of R low back pain. PT-OP-Q Treatments Start: 11/29/22 16:37 Freq: Status: Active Protocol: Document 12/23/22 11:30 NBM (Rec: 01/27/23 15:47 NB [id number]) Therapeutic Exercises Supine Exercises Guanaco shoulder ext/scap retract Supine Exercise Name Guanaco shoulder ext/scap retrac Equipment Used Cold pack alt with moist heat Reps/Minutes 5 SH reps - 3' Comments semi-reclined today - no increase in pain, vc chin tuck & excessive UT Sidelying Exercises open book Side bilateral Reps/Minutes x5 ea Comments cues for TrA, no breathholding , dc'd d/t pt's c/o increased pain Other Exercises Semi-reclined upper body rot Other Exercise Name Semi-reclined upper body 20 deg's rot (arms to ceiling > side to side) Side bilateral Reps/Minutes 15x Comments Cuing to follow hands with head and to breathe. Semi-reclined trunk rot Other Exercise Name Semi-reclined knee rolls - 20 deg's rotation Side bilateral Equipment Used ice to back (altenating with MHP) Reps/Minutes 15x Comments cues for no breathholding Semi-reclined bridging Other Exercise Name Semi-reclined bridging Equipment Used ice to back (altenating with MHP) Reps/Minutes 10x Comments cued UT overactivation and breathing - improved tolerance Semi-reclined trunk ext Other Exercise Name Semi-reclined trunk Ext Equipment Used MH to back Reps/Minutes 5 SH x 15 Comments cues for chin tuck & UT overactivation Manual Therapy Treatment Soft Tissue Mobilization Lumbar Paraspinals Body Location R QL, B paraspinals Mobilization Type Rolling,Strumming,Sustained Pressure Body Position Sidelying Comments Manual stretch to R QL Thoracic Paraspinals Body Location L Thoracic Paraspinals (T10- T11 focus) Mobilization Type Strumming,Sustained Pressure, Trigger Point Release Intensity/Depth Moderate Body Position Sidelying Self-Care/Home Management Treatment Education Patient Education Home Exercise Program,Posture Other Education HEP review with emphasis on gentle, pain-free ROM, breathwork, and posture. Added to HEP: Wall posture drill, PPT, supine/seated Chin tucks - HO given. Pt education in sitting and standing posture with emphasis on chin tuck, scapular retraction and Transverse abdominus activation for improving core stability and upright posture - HOs given. PT-OP-R Modalities Start: 11/29/22 16:37 Freq: Status: Active Protocol: Document 12/23/22 11:30 NBM (Rec: 01/27/23 15:47 [facility] [id number]) Hot Pack/Cold Pack Treatment Cold Pack Location Midback used during pt education/self care PT-OP-T Assessment and Plan Start: 11/29/22 16:37 Freq: Status: Active Protocol: Document 12/23/22 11:30 NBM (Rec: 01/27/23 15:47 [facility] [id number]) Physical Therapy Assessment Impairments Impairments Activity Tolerance,Edema,Pain, Posture Goals Three Impairment Decreased function Impairment AYESHA score is 18 (1-19% impaired, score 1-19). Pt goal is to get the back pain resolvedyoga), and control pain w/o medications. Short Term Goal (STG) Pt to walk farther and resume yoga. STG Duration 01/10/23 [facility] Goal (LTG) Improve function with improved AYESHA score of no greater than 10 (1-19% impaired, score 1-19 ). LTG Duration 02/13/23 Two Impairment LBP rated 6/10. Impairment Across LBP ~ level of L3-L4. Short Term Goal (STG) Decrease LBP to 3/10 and intermittent. 12/12/22: With cues for Transverse abdominus activation and breathing pt is able to perform HEP AROM lumbar bridging and AROM lumbar pelvic tilt ant w/out increase in baseline symptoms. STG Duration 01/10/23 [facility] Goal (LTG) Resolve LBP with minimal or no use of medications. LTG Duration 02/13/23 One Impairment Lacks appropriate self care HEP. Short Term Goal (STG) Pt educated in proper sitting and standing posture and L LE edema management. STG Duration 02/11/23 [facility] Goal (LTG) Pt will be educated in a self care HEP of low back and L knee flexibility and strengthening 12/12/22: With cues for Transverse abdominus activation and breathing Celena is able to perform HEP AROM lumbar bridging and AROM lumbar pelvic tilt ant w/out increase in baseline symptoms. LTG Duration 02/13/23 Assessment Summary Assessment Celena presents today with ongoing thoracolumbar pain. Treatment focus on HEP review, postural educaton and manual therapy with focus on thoracic paraspinals - palpable tension improves with manual therapy. Pt requires initial cueing for Upper trapezius overactivation and chin tuck. Pain apprehension with movement may be contributing to pt's need for consistent cues for no breathholding, but she demonstrates improved self-awareness of breathwork and recruitment of Transverse abdominus with ex's since last visit 12/12/22. HEP review with emphasis on gentle, pain- free ROM, breathwork, and posture. Added to HEP: Wall posture drill, PPT, supine/ seated Chin tucks - HO given. Pt education in sitting and standing posture with emphasis on chin tuck, scapular retraction and Transverse abdominus activation for improving core stability and upright posture - HOs given. Physical Therapy Plan Frequency and Duration Frequency of Treatment 2x/Week Plan of Care Start Date 12/04/22 Plan of Care End Date 02/13/23 Therapeutic Interventions Therapeutic Interventions Home Exercise Program,Manual Therapy,Neuromuscular Re- education,Patient/Caregiver Education,Self-Care/Home Management,Soft Tissue Mobilization,Therapeutic Activities,Therapeutic Exercises Modalities Cold Pack/Ice Massage,Hot Packs Next Visit Focus/Plan Next Note Type Treatment Note Next Visit Plan NOTE: Pt w/pacemaker & Osteopenia, CHF, heart disease . Assess response to previous exercises. Review proper sitting/standing posture and provide HO. Assess L LE: pedal pulses, & Trunk AROM (SB, rot) with ROM ex if needed. Education of pt in edema management and possibly self lymphatic massage or lymphatic L LE ex program. Manual: STM to low back; Cont Ex: Thoracic rot, LB flex/ext/rot, LE neural glides ; Add: core strengthening Modalities of MH/Ice. No electric modalities due to pacemaker.
--- NOTE | 2022-12-23 13:45 | PT.OTN ---
Current Diagnoses Postural kyphosis, cervicothoracic region (12/23/22) Low back pain, unspecified (12/23/22) Pain in left leg (12/23/22) Other specified soft tissue disorders (12/23/22) Unsteadiness on feet (12/23/22) Physical Therapy Treatment Note PT-OP-A Visit Information Start: 11/29/22 16:37 Freq: Status: Active Protocol: Document 12/23/22 11:30 NBM (Rec: 01/27/23 15:47 NBM [id number]) Out-Patient Physical Therapy Visit Information Visit Information Visit Type Treatment Note Visit Start Time 11:32 Visit Stop Time 12:20 Total Visit Minutes 48 Visit Number 4 Number of DIRECTOR OF HEALTH CARE MARKETING Visits 2 Evaluation Information Evaluation Date 12/04/22 Precautions Precautions Per pt: Aortic valve replaced , Pacemaker-10/23/21, Aortic valve replacement, Cardiac ablation 10/28/21 several cardio conversions (last one before pacemaker placed); prior fractured L shoulder in January 2022 - still doing exercises. PT-OP-B Current Condition Start: 11/29/22 16:37 Freq: Status: Active Protocol: Document 12/04/22 09:55 LRN (Rec: 12/04/22 10:44 LRN [id number]) Current Condition History of Current Condition Onset Date 09/26/22 Current Complaints Back pain, L leg stiffness and lower leg edema. History of Current Condition Pt reports she was getting up from recliner and tripped over pillow landing on carpet. Wasn't in a brewster and was able to stand up and walk, but noticed immediate swelling in the LLE. Initially she couldn 't bend the L knee, but now is able to and reports no pain in the LE, only stiffness and swelling. She reports delayed compromise from not bending at the L knee causing onset of L LBP. Was on blood thinners when had accident and is still on blood thinners. Pt no longer complains of L knee pain, but only back pain. States everything takes a lot of time, dressing, putting on socks, bending, walking (less) , stretches/yoga - limited, and she has difficulty getting off the floor. She is able to sleep in bed on her back, but elevated on wedge. She only starts out with LBP. She sleeps on her back due to nighttime O2 needs. Pt reported PMH: fractured shoulder last January 2022. Social hx: Pt states she is active, lives alone in own home but her granddaughter has been living with her. Using heat and ice at home. Prior Treatments and Tests Pain medication, no longer taking. Now on advanced Tylenol. Treatment Goals Patient/Caregiver Goals Pt goal is to get the back pain resolved or where it is not a problem (be able to walk farther, resume yoga), and control pain w/o medications. 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 Although not mentioned as a goal she reports dysfunctions of: back pain makes everything takes a lot of time , dressing, putting on socks, bending, walking (less), stretches/yoga - limited, difficulty getting off the floor. 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 Does exercises for her shoulder and arms since fracture January 2022. Personal Factors Other Personal Factors That May Effect Cardiac pacemaker, cardiac Therapy/Recovery history, active with doing research with a discussion group 1x/month and another discussion group discussing books. PT-OP-C Subjective Start: 11/29/22 16:37 Freq: Status: Active Protocol: Document 12/23/22 11:30 NBM (Rec: 01/27/23 15:47 [facility] [id number]) OP-PT Subjective Patient Comments Patient Comments Pt reports she is in a lot of pain today in her back and neck, and she has swelling in her L leg. PT-OP-H Neuro Start: 11/29/22 16:37 Freq: Status: Active Protocol: Document 12/09/22 13:52 LRN (Rec: 12/09/22 16:51 LRN [id number]) Deep Tendon Reflex & Clonus Assessment Deep Tendon Reflex Right Achilles Deep Tendon Reflex 2+ Normal Left Achilles Deep Tendon Reflex 1+ Diminished Bilateral Patellar Deep Tendon Reflex 3+ Normal But Brisk PT-OP-J Posture/Palpation/Skin Start: 11/29/22 16:37 Freq: Status: Active Protocol: Document 12/04/22 09:55 LRN (Rec: 12/04/22 10:44 LRN [id number]) Posture Evaluation Position Standing T-Spine Posture Increased Kyphosis L-Spine Posture Flattened Shoulder Posture (L) Elevated Pelvis Posture (R) Iliac Crest Superior Knee Posture (L) Neutral Comments Posture Comments Mild C-curve of thoracic spine with apex on L at T5-T6. Notable swelling in L lower leg. Palpation Assessment Location L leg Palpation Location Knee distally anterior Palpation Findings Edema,Soft Tissue Tightness Low Back Palpation Location Pain at level of L3, L4 Palpation Findings Muscle Guarding,Tenderness PT-OP-K Range of Motion Start: 11/29/22 16:37 Freq: Status: Active Protocol: Document 12/04/22 09:55 LRN (Rec: 12/04/22 10:44 LRN [id number]) Lumbar Spine Range of Motion Lumbar Spine Active Degrees Testing Position Standing Flexion 70 Extension 10 ROM Limitations Pain Knee Goniometric Range of Motion Knee Right Knee ROM WFL Yes Patient Position Semi-reclined Comments AROM is 0-126 Left Knee ROM WFL Yes Patient Position Semi-reclined Comments AROM is 0-126 PT-OP-L Special Tests Start: 11/29/22 16:37 Freq: Status: Active Protocol: Document 12/09/22 13:52 LRN (Rec: 12/09/22 16:53 LRN [id number]) Special Tests Lumbar Spine Special Tests Slump Test Results + L, neutral tension R Comments L LE testing resulted in onset of R low back pain. PT-OP-Q Treatments Start: 11/29/22 16:37 Freq: Status: Active Protocol: Document 12/23/22 11:30 NBM (Rec: 01/27/23 15:47 [facility] [id number]) Therapeutic Exercises Supine Exercises Guanaco shoulder ext/scap retract Supine Exercise Name Guanaco shoulder ext/scap retrac Equipment Used Cold pack alt with moist heat Reps/Minutes 5 SH reps - 3' Comments semi-reclined today - no increase in pain, vc chin tuck & excessive UT Sidelying Exercises open book Side bilateral Reps/Minutes x5 ea Comments cues for TrA, no breathholding , dc'd d/t pt's c/o increased pain Other Exercises Semi-reclined upper body rot Other Exercise Name Semi-reclined upper body 20 deg's rot (arms to ceiling > side to side) Side bilateral Reps/Minutes 15x Comments Cuing to follow hands with head and to breathe. Semi-reclined trunk rot Other Exercise Name Semi-reclined knee rolls - 20 deg's rotation Side bilateral Equipment Used ice to back (altenating with MHP) Reps/Minutes 15x Comments cues for no breathholding Semi-reclined bridging Other Exercise Name Semi-reclined bridging Equipment Used ice to back (altenating with MHP) Reps/Minutes 10x Comments cued UT overactivation and breathing - improved tolerance Semi-reclined trunk ext Other Exercise Name Semi-reclined trunk Ext Equipment Used MH to back Reps/Minutes 5 SH x 15 Comments cues for chin tuck & UT overactivation Manual Therapy Treatment Soft Tissue Mobilization Lumbar Paraspinals Body Location R QL, B paraspinals Mobilization Type Rolling,Strumming,Sustained Pressure Body Position Sidelying Comments Manual stretch to R QL Thoracic Paraspinals Body Location L Thoracic Paraspinals (T10- T11 focus) Mobilization Type Strumming,Sustained Pressure, Trigger Point Release Intensity/Depth Moderate Body Position Sidelying Self-Care/Home Management Treatment Education Patient Education Home Exercise Program,Posture Other Education HEP review with emphasis on gentle, pain-free ROM and breathwork. Discussed sitting and standing posture with emphasis on chin tuck, scapular retraction and Transverse abdominus activation for improving core stability and upright posture. PT-OP-R Modalities Start: 11/29/22 16:37 Freq: Status: Active Protocol: Document 12/23/22 11:30 NBM (Rec: 01/27/23 15:47 [facility] [id number]) Hot Pack/Cold Pack Treatment Cold Pack Location Midback used during pt education/self care PT-OP-T Assessment and Plan Start: 11/29/22 16:37 Freq: Status: Active Protocol: Document 12/23/22 11:30 NBM (Rec: 01/27/23 15:47 [facility] [id number]) Physical Therapy Assessment Impairments Impairments Activity Tolerance,Edema,Pain, Posture Goals Three Impairment Decreased function Impairment AYESHA score is 18 (1-19% impaired, score 1-19). Pt goal is to get the back pain resolvedyoga), and control pain w/o medications. Short Term Goal (STG) Pt to walk farther and resume yoga. STG Duration 01/10/23 [facility] Goal (LTG) Improve function with improved AYESHA score of no greater than 10 (1-19% impaired, score 1-19 ). LTG Duration 02/13/23 Two Impairment LBP rated 6/10. Impairment Across LBP ~ level of L3-L4. Short Term Goal (STG) Decrease LBP to 3/10 and intermittent. 12/12/22: With cues for Transverse abdominus activation and breathing pt is able to perform HEP AROM lumbar bridging and AROM lumbar pelvic tilt ant w/out increase in baseline symptoms. STG Duration 01/10/23 [facility] Custodian Goal (LTG) Resolve LBP with minimal or no use of medications. LTG Duration 02/13/23 One Impairment Lacks appropriate self care HEP. Short Term Goal (STG) Pt educated in proper sitting and standing posture and L LE edema management. STG Duration 02/11/23 [facility] Goal (LTG) Pt will be educated in a self care HEP of low back and L knee flexibility and strengthening 12/12/22: With cues for Transverse abdominus activation and breathing Celena is able to perform HEP AROM lumbar bridging and AROM lumbar pelvic tilt ant w/out increase in baseline symptoms. LTG Duration 02/13/23 Assessment Summary Assessment Celena presents today with ongoing thoracolumbar pain. Treatment focus on HEP review, postural educaton and manual therapy with focus on thoracic paraspinals - palpable tension improves with manual therapy. Pt requires initial cueing for Upper trapezius overactivation and chin tuck. Pain apprehension with movement may be contributing to pt's need for consistent cues for no breathholding, but she demonstrates improved self-awareness of breathwork and recruitment of Transverse abdominus with ex's since last visit 12/12/22. Discussed sitting and standing posture with emphasis on chin tuck, scapular retraction and Transverse abdominus activation for improving core stability and upright posture. Physical Therapy Plan Frequency and Duration Frequency of Treatment 2x/Week Plan of Care Start Date 12/04/22 Plan of Care End Date 02/13/23 Therapeutic Interventions Therapeutic Interventions Home Exercise Program,Manual Therapy,Neuromuscular Re- education,Patient/Caregiver Education,Self-Care/Home Management,Soft Tissue Mobilization,Therapeutic Activities,Therapeutic Exercises Modalities Cold Pack/Ice Massage,Hot Packs Next Visit Focus/Plan Next Note Type Treatment Note Next Visit Plan NOTE: Pt w/pacemaker & Osteopenia, CHF, heart disease . Assess response to previous exercises. Review proper sitting/standing posture and provide HO. Assess L LE: pedal pulses, & Trunk AROM (SB, rot) with ROM ex if needed. Education of pt in edema management and possibly self lymphatic massage or lymphatic L LE ex program. Manual: STM to low back; Cont Ex: Thoracic rot, LB flex/ext/rot, LE neural glides ; Add: core strengthening Modalities of MH/Ice. No electric modalities due to pacemaker.
--- NOTE | 2022-12-29 16:12 | PT.OTN ---
Current Diagnoses Postural kyphosis, cervicothoracic region (12/29/22) Low back pain, unspecified (12/29/22) Pain in left leg (12/29/22) Other specified soft tissue disorders (12/29/22) Unsteadiness on feet (12/29/22) Physical Therapy Treatment Note PT-OP-A Visit Information Start: 11/29/22 16:37 Freq: Status: Active Protocol: Document 12/29/22 10:32 LRN (Rec: 12/29/22 11:17 LRN [id number]) Out-Patient Physical Therapy Visit Information Visit Information Visit Type Treatment Note Visit Start Time 10:32 Visit Stop Time 11:11 Total Visit Minutes 39 Visit Number 4 Evaluation Information Evaluation Date 12/04/22 Precautions Precautions Per pt: Aortic valve replaced , Pacemaker-10/23/21, Aortic valve replacement, Cardiac ablation 10/28/21 several cardio conversions (last one before pacemaker placed); prior fractured L shoulder in January 2022 - still doing exercises. PT-OP-B Current Condition Start: 11/29/22 16:37 Freq: Status: Active Protocol: Document 12/04/22 09:55 LRN (Rec: 12/04/22 10:44 LRN [id number]) Current Condition History of Current Condition Onset Date 09/26/22 Current Complaints Back pain, L leg stiffness and lower leg edema. History of Current Condition Pt reports she was getting up from recliner and tripped over pillow landing on carpet. Wasn't in a brewster and was able to stand up and walk, but noticed immediate swelling in the LLE. Initially she couldn 't bend the L knee, but now is able to and reports no pain in the LE, only stiffness and swelling. She reports delayed compromise from not bending at the L knee causing onset of L LBP. Was on blood thinners when had accident and is still on blood thinners. Pt no longer complains of L knee pain, but only back pain. States everything takes a lot of time, dressing, putting on socks, bending, walking (less) , stretches/yoga - limited, and she has difficulty getting off the floor. She is able to sleep in bed on her back, but elevated on wedge. She only starts out with LBP. She sleeps on her back due to nighttime O2 needs. Pt reported PMH: fractured shoulder last January 2022. Social hx: Pt states she is active, lives alone in own home but her granddaughter has been living with her. Using heat and ice at home. Prior Treatments and Tests Pain medication, no longer taking. Now on advanced Tylenol. Treatment Goals Patient/Caregiver Goals Pt goal is to get the back pain resolved or where it is not a problem (be able to walk farther, resume yoga), and control pain w/o medications. She understands it might take her awhile to be able to start doing manager engine ( vacumming, assisted gardening - raised and low on ground garden beds). Although not mentioned as a goal she reports dysfunctions of: back pain makes everything takes a lot of time , dressing, putting on socks, bending, walking (less), stretches/yoga - limited, difficulty getting off the floor. 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 Does exercises for her shoulder and arms since fracture January 2022. Personal Factors Other Personal Factors That May Effect Cardiac pacemaker, cardiac Therapy/Recovery history, active with doing research with a discussion group 1x/month and another discussion group discussing books. PT-OP-C Subjective Start: 11/29/22 16:37 Freq: Status: Active Protocol: Document 12/29/22 10:32 LRN (Rec: 12/29/22 11:17 LRN [id number]) OP-PT Subjective Patient Comments Patient Comments States her entire spine, L stomach & legs hurt. States she had diarrhea and took and anti-diarrhea medication today . PT-OP-H Neuro Start: 11/29/22 16:37 Freq: Status: Active Protocol: Document 12/09/22 13:52 LRN (Rec: 12/09/22 16:51 LRN [id number]) Deep Tendon Reflex & Clonus Assessment Deep Tendon Reflex Right Achilles Deep Tendon Reflex 2+ Normal Left Achilles Deep Tendon Reflex 1+ Diminished Bilateral Patellar Deep Tendon Reflex 3+ Normal But Brisk PT-OP-J Posture/Palpation/Skin Start: 11/29/22 16:37 Freq: Status: Active Protocol: Document 12/04/22 09:55 LRN (Rec: 12/04/22 10:44 LRN [id number]) Posture Evaluation Position Standing T-Spine Posture Increased Kyphosis L-Spine Posture Flattened Shoulder Posture (L) Elevated Pelvis Posture (R) Iliac Crest Superior Knee Posture (L) Neutral Comments Posture Comments Mild C-curve of thoracic spine with apex on L at T5-T6. Notable swelling in L lower leg. Palpation Assessment Location L leg Palpation Location Knee distally anterior Palpation Findings Edema,Soft Tissue Tightness Low Back Palpation Location Pain at level of L3, L4 Palpation Findings Muscle Guarding,Tenderness PT-OP-K Range of Motion Start: 11/29/22 16:37 Freq: Status: Active Protocol: Document 12/04/22 09:55 LRN (Rec: 12/04/22 10:44 LRN [id number]) Lumbar Spine Range of Motion Lumbar Spine Active Degrees Testing Position Standing Flexion 70 Extension 10 ROM Limitations Pain Knee Goniometric Range of Motion Knee Right Knee ROM WFL Yes Patient Position Semi-reclined Comments AROM is 0-126 Left Knee ROM WFL Yes Patient Position Semi-reclined Comments AROM is 0-126 PT-OP-L Special Tests Start: 11/29/22 16:37 Freq: Status: Active Protocol: Document 12/09/22 13:52 LRN (Rec: 12/09/22 16:53 LRN [id number]) Special Tests Lumbar Spine Special Tests Slump Test Results + L, neutral tension R Comments L LE testing resulted in onset of R low back pain. PT-OP-Q Treatments Start: 11/29/22 16:37 Freq: Status: Active Protocol: Document 12/29/22 10:32 LRN (Rec: 12/29/22 11:17 LRN [id number]) Manual Therapy Treatment Soft Tissue Mobilization Lumbar Paraspinals Body Location Lumbar Paraspinals/QL Mobilization Type Strumming Intensity/Depth Moderate Body Position Sidelying Thoracic Paraspinals Body Location Thoracic Paraspnials Mobilization Type Strumming,Sustained Pressure Intensity/Depth Moderate Body Position Sidelying Comments Paraspinal tightness worse at T11/T12/L1 region. Self-Care/Home Management Treatment Activities Self-Care/Home Management Activities 15' Pt allowed to rest after walking into therapy room, before assessment of vitals due to pt c/o's pain, swelling in legs and feet and L abdominal pain. PT-OP-T Assessment and Plan Start: 11/29/22 16:37 Freq: Status: Active Protocol: Document 12/29/22 10:32 LRN (Rec: 12/29/22 11:17 LRN [id number]) Physical Therapy Assessment Goals Three Impairment Decreased function Impairment AYESHA score is 18 (1-19% impaired, score 1-19). Pt goal is to get the back pain resolvedyoga), and control pain w/o medications. Short Term Goal (STG) Pt to walk farther and resume yoga. STG Duration 01/10/23 Fire Safety Director Goal (LTG) Improve function with improved AYESHA score of no greater than 10 (1-19% impaired, score 1-19 ). LTG Duration 02/13/23 Two Impairment LBP rated 6/10. Impairment Across LBP ~ level of L3-L4. Short Term Goal (STG) Decrease LBP to 3/10 and intermittent. 12/12/22: With cues for Transverse abdominus activation and breathing pt is able to perform HEP AROM lumbar bridging and AROM lumbar pelvic tilt ant w/out increase in baseline symptoms. STG Duration 01/10/23 Penitentiary Goal (LTG) Resolve LBP with minimal or no use of medications. LTG Duration 02/13/23 One Impairment Lacks appropriate self care HEP. Short Term Goal (STG) Pt educated in proper sitting and standing posture and L LE edema management. STG Duration 02/11/23 Fire Safety Director Goal (LTG) Pt will be educated in a self care HEP of low back and L knee flexibility and strengthening 12/12/22: With cues for Transverse abdominus activation and breathing Celena is able to perform HEP AROM lumbar bridging and AROM lumbar pelvic tilt ant w/out increase in baseline symptoms. LTG Duration 02/13/23 Assessment Summary Assessment Poor response to last treatment with ongoing back pain, possibly due to rotatin ex's. New onset of LLQ abdominal pain, swapnil thigh pain and swelling in lower legs bilaterally. Vitals (HR, SpO2 , BP) taken are norm except pt reporting her BP is a little high, normally systolic is 120 but in clinic BP is 130/69. She is tight in her thoracic spine, and had no change in pain after STM. Not able to palpate pedial pulse through compression socks. Pt I/S to go to ER if worsening of symptoms. Physical Therapy Plan Frequency and Duration Frequency of Treatment 2x/Week Plan of Care Start Date 12/04/22 Plan of Care End Date 06/30/23 Next Visit Focus/Plan Next Note Type Treatment Note Next Visit Plan NOTE: Pt w/pacemaker & Osteopenia, CHF, heart disease . Educate pt in proper sitting/ standing posture. Monitor for LLE pedal pulse if swelling persists. Education of pt in edema management and possibly self lymphatic massage or lymphatic L LE ex program. Manual: STM to low back; Cont Ex: LB flex/ext, LE neural glides sliders; Add: core strengthening and daisha thoracic ext ex's. Modalities of MH/Ice. No electric modalities due to pacemaker.
--- NOTE | 2022-12-29 16:15 | PT-OP ANOTE ---
Called Dr Rangel's office and spoke to Farnaz, pt vp communications. Requested Dr. Rangel be notified that pt had c/o increased back pain and onset of LLQ abdominal pain and bilateral thigh pain; pt noting increased swelling in lower legs and that pedal pulse were not palpated. Notified office that pt had message physician throug pt portal and recommended pt be seen today for symptoms.
--- NOTE | 2023-01-05 17:17 | PT.OTN ---
Current Diagnoses Postural kyphosis, cervicothoracic region (01/05/23) Low back pain, unspecified (01/05/23) Pain in left leg (01/05/23) Other specified soft tissue disorders (01/05/23) Unsteadiness on feet (01/05/23) Physical Therapy Treatment Note PT-OP-A Visit Information Start: 11/29/22 16:37 Freq: Status: Active Protocol: Document 01/05/23 10:31 LRN (Rec: 01/05/23 11:13 LRN [id number]) Out-Patient Physical Therapy Visit Information Visit Information Visit Type Treatment Note Visit Start Time 10:31 Visit Stop Time 11:09 Total Visit Minutes 38 Visit Number 5 PT-OP-B Current Condition Start: 11/29/22 16:37 Freq: Status: Active Protocol: Document 12/04/22 09:55 LRN (Rec: 12/04/22 10:44 LRN [id number]) Current Condition History of Current Condition Onset Date 09/26/22 Current Complaints Back pain, L leg stiffness and lower leg edema. History of Current Condition Pt reports she was getting up from recliner and tripped over pillow landing on carpet. Wasn't in a brewster and was able to stand up and walk, but noticed immediate swelling in the LLE. Initially she couldn 't bend the L knee, but now is able to and reports no pain in the LE, only stiffness and swelling. She reports delayed compromise from not bending at the L knee causing onset of L LBP. Was on blood thinners when had accident and is still on blood thinners. Pt no longer complains of L knee pain, but only back pain. States everything takes a lot of time, dressing, putting on socks, bending, walking (less) , stretches/yoga - limited, and she has difficulty getting off the floor. She is able to sleep in bed on her back, but elevated on wedge. She only starts out with LBP. She sleeps on her back due to nighttime O2 needs. Pt reported PMH: fractured shoulder last January 2022. Social hx: Pt states she is active, lives alone in own home but her granddaughter has been living with her. Using heat and ice at home. Prior Treatments and Tests Pain medication, no longer taking. Now on advanced Tylenol. Treatment Goals Patient/Caregiver Goals Pt goal is to get the back pain resolved or where it is not a problem (be able to walk farther, resume yoga), and control pain w/o medications. 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 Although not mentioned as a goal she reports dysfunctions of: back pain makes everything takes a lot of time , dressing, putting on socks, bending, walking (less), stretches/yoga - limited, difficulty getting off the floor. 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 Does exercises for her shoulder and arms since fracture January 2022. Personal Factors Other Personal Factors That May Effect Cardiac pacemaker, cardiac Therapy/Recovery history, active with doing research with a discussion group 1x/month and another discussion group discussing books. PT-OP-C Subjective Start: 11/29/22 16:37 Freq: Status: Active Protocol: Document 01/05/23 10:31 LRN (Rec: 01/05/23 11:13 LRN [id number]) OP-PT Subjective Patient Comments Patient Comments X-rays done on . States he is recommending he see Dr. Camara for an assessment of her spine. She states her son is going through a nasty divorce. PT-OP-H Neuro Start: 11/29/22 16:37 Freq: Status: Active Protocol: Document 12/09/22 13:52 LRN (Rec: 12/09/22 16:51 LRN [id number]) Deep Tendon Reflex & Clonus Assessment Deep Tendon Reflex Right Achilles Deep Tendon Reflex 2+ Normal Left Achilles Deep Tendon Reflex 1+ Diminished Bilateral Patellar Deep Tendon Reflex 3+ Normal But Brisk PT-OP-J Posture/Palpation/Skin Start: 11/29/22 16:37 Freq: Status: Active Protocol: Document 12/04/22 09:55 LRN (Rec: 12/04/22 10:44 LRN [id number]) Posture Evaluation Position Standing T-Spine Posture Increased Kyphosis L-Spine Posture Flattened Shoulder Posture (L) Elevated Pelvis Posture (R) Iliac Crest Superior Knee Posture (L) Neutral Comments Posture Comments Mild C-curve of thoracic spine with apex on L at T5-T6. Notable swelling in L lower leg. Palpation Assessment Location L leg Palpation Location Knee distally anterior Palpation Findings Edema,Soft Tissue Tightness Low Back Palpation Location Pain at level of L3, L4 Palpation Findings Muscle Guarding,Tenderness PT-OP-K Range of Motion Start: 11/29/22 16:37 Freq: Status: Active Protocol: Document 12/04/22 09:55 LRN (Rec: 12/04/22 10:44 LRN [id number]) Lumbar Spine Range of Motion Lumbar Spine Active Degrees Testing Position Standing Flexion 70 Extension 10 ROM Limitations Pain Knee Goniometric Range of Motion Knee Right Knee ROM WFL Yes Patient Position Semi-reclined Comments AROM is 0-126 Left Knee ROM WFL Yes Patient Position Semi-reclined Comments AROM is 0-126 PT-OP-L Special Tests Start: 11/29/22 16:37 Freq: Status: Active Protocol: Document 12/09/22 13:52 LRN (Rec: 12/09/22 16:53 LRN [id number]) Special Tests Lumbar Spine Special Tests Slump Test Results + L, neutral tension R Comments L LE testing resulted in onset of R low back pain. PT-OP-Q Treatments Start: 11/29/22 16:37 Freq: Status: Active Protocol: Document 01/05/23 10:31 LRN (Rec: 01/05/23 11:13 LRN [id number]) Therapeutic Exercises Supine Exercises Guanaco shoulder ext/scap retract Supine Exercise Name [place] shoulder ext/scap retrac Reps/Minutes 5 SH reps - 3' Gabe arm lifts Supine Exercise Name Gabe arm lifts Side bilateral Reps/Minutes 2' Comments R arm mobility limited. Alt arm lifts Supine Exercise Name Alternate arm lifts Side bilateral Reps/Minutes 3' Manual Therapy Treatment Soft Tissue Mobilization Lumbar Paraspinals Body Location R QL Mobilization Type Strumming,Sustained Pressure, Trigger Point Release Intensity/Depth Moderate Body Position Sidelying Thoracic Paraspinals Body Location L Thoracic Paraspinals (T10- T11) Mobilization Type Strumming,Sustained Pressure, Trigger Point Release Intensity/Depth Moderate Body Position Sidelying PT-OP-T Assessment and Plan Start: 11/29/22 16:37 Freq: Status: Active Protocol: Document 01/05/23 10:31 LRN (Rec: 01/05/23 11:13 LRN [id number]) Physical Therapy Assessment Goals Three Impairment Decreased function Impairment AYESHA score is 18 (1-19% impaired, score 1-19). Pt goal is to get the back pain resolvedyoga), and control pain w/o medications. Short Term Goal (STG) Pt to walk farther and resume yoga. STG Duration 01/10/23 Sustainability Officer Goal (LTG) Improve function with improved AYESHA score of no greater than 10 (1-19% impaired, score 1-19 ). LTG Duration 02/13/23 Two Impairment LBP rated 6/10. Impairment Across LBP ~ level of L3-L4. Short Term Goal (STG) Decrease LBP to 3/10 and intermittent. 12/12/22: With cues for Transverse abdominus activation and breathing pt is able to perform HEP AROM lumbar bridging and AROM lumbar pelvic tilt ant w/out increase in baseline symptoms. STG Duration 01/10/23 Sustainability Officer Goal (LTG) Resolve LBP with minimal or no use of medications. LTG Duration 02/13/23 One Impairment Lacks appropriate self care HEP. Short Term Goal (STG) Pt educated in proper sitting and standing posture and L LE edema management. STG Duration 02/11/23 Sustainability Officer Goal (LTG) Pt will be educated in a self care HEP of low back and L knee flexibility and strengthening 12/12/22: With cues for Transverse abdominus activation and breathing Celena is able to perform HEP AROM lumbar bridging and AROM lumbar pelvic tilt ant w/out increase in baseline symptoms. LTG Duration 02/13/23 Assessment Summary Assessment Pt under stress due to son problems in his life. X-rays shows T9 severe compression fracture with 80% vertebral body loss, and retrolisthesis L1-L3. Left T10-T12 paraspinals are most tender - excessive kyphosis, & R QL. Pain relief is questionable although pt feels better in sidelie, no significant pain improvement in standing. Core stab to lessen lordosis and thoracic kyphosis is probably needed to reduce spinal pain. Pt having no abdominal pain today, reported more toward evening is when she is having it. Physical Therapy Plan Frequency and Duration Frequency of Treatment 2x/Week Plan of Care Start Date 12/04/22 Plan of Care End Date 02/13/23 Next Visit Focus/Plan Next Note Type Treatment Note Next Visit Plan NOTE: Pt w/pacemaker & Osteopenia, CHF, heart disease . Educate pt in proper sitting/ standing posture. Assess for use of cane to support back. Monitor for LLE pedal pulse if swelling persists. Education of pt in edema management and possibly self lymphatic massage or lymphatic L LE ex program. Manual: L/S to improve flexion (spinal balancing), STM to low back; Cont Ex: LB flex/ext, if tolerated LE neural glides sliders; isolated T/S ext, isolated L/S flex, Add: core stab (L/S flex) strengthening and guanaco thoracic ext ex's. Modalities of MH/Ice. No electric modalities due to pacemaker.
--- NOTE | 2023-01-13 16:44 | PT.OTN ---
Current Diagnoses Postural kyphosis, cervicothoracic region (01/13/23) Low back pain, unspecified (01/13/23) Pain in left leg (01/13/23) Other specified soft tissue disorders (01/13/23) Unsteadiness on feet (01/13/23) Physical Therapy Treatment Note PT-OP-A Visit Information Start: 11/29/22 16:37 Freq: Status: Active Protocol: Document 01/13/23 09:45 NBM (Rec: 01/13/23 10:34 NBM [id number]) Out-Patient Physical Therapy Visit Information Visit Information Visit Type Treatment Note Visit Start Time 09:49 Visit Stop Time 10:29 Total Visit Minutes 40 Visit Number 6 Number of SENIOR CENTER DIRECTOR Visits 1 PT-OP-B Current Condition Start: 11/29/22 16:37 Freq: Status: Active Protocol: Document 12/04/22 09:55 LRN (Rec: 12/04/22 10:44 LRN [id number]) Current Condition History of Current Condition Onset Date 09/26/22 Current Complaints Back pain, L leg stiffness and lower leg edema. History of Current Condition Pt reports she was getting up from recliner and tripped over pillow landing on carpet. Wasn't in a brewster and was able to stand up and walk, but noticed immediate swelling in the LLE. Initially she couldn 't bend the L knee, but now is able to and reports no pain in the LE, only stiffness and swelling. She reports delayed compromise from not bending at the L knee causing onset of L LBP. Was on blood thinners when had accident and is still on blood thinners. Pt no longer complains of L knee pain, but only back pain. States everything takes a lot of time, dressing, putting on socks, bending, walking (less) , stretches/yoga - limited, and she has difficulty getting off the floor. She is able to sleep in bed on her back, but elevated on wedge. She only starts out with LBP. She sleeps on her back due to nighttime O2 needs. Pt reported PMH: fractured shoulder last January 2022. Social hx: Pt states she is active, lives alone in own home but her granddaughter has been living with her. Using heat and ice at home. Prior Treatments and Tests Pain medication, no longer taking. Now on advanced Tylenol. Treatment Goals Patient/Caregiver Goals Pt goal is to get the back pain resolved or where it is not a problem (be able to walk farther, resume yoga), and control pain w/o medications. 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 Although not mentioned as a goal she reports dysfunctions of: back pain makes everything takes a lot of time , dressing, putting on socks, bending, walking (less), stretches/yoga - limited, difficulty getting off the floor. 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 Does exercises for her shoulder and arms since fracture January 2022. Personal Factors Other Personal Factors That May Effect Cardiac pacemaker, cardiac Therapy/Recovery history, active with doing research with a discussion group 1x/month and another discussion group discussing books. PT-OP-C Subjective Start: 11/29/22 16:37 Freq: Status: Active Protocol: Document 01/13/23 09:45 NBM (Rec: 01/13/23 10:34 NBM [id number]) OP-PT Subjective Patient Comments Patient Comments Pt reports she is in a lot of pain and wonders if her doctor will direct her to continue PT or not. She also has a swollen R leg which she states she was told might be related to her heart, and she is now putting cream on twice a day, but not yet today, and she is not sure if it is helping or not. She is sleeping very well . PT-OP-H Neuro Start: 11/29/22 16:37 Freq: Status: Active Protocol: Document 12/09/22 13:52 LRN (Rec: 12/09/22 16:51 LRN [id number]) Deep Tendon Reflex & Clonus Assessment Deep Tendon Reflex Right Achilles Deep Tendon Reflex 2+ Normal Left Achilles Deep Tendon Reflex 1+ Diminished Bilateral Patellar Deep Tendon Reflex 3+ Normal But Brisk PT-OP-J Posture/Palpation/Skin Start: 11/29/22 16:37 Freq: Status: Active Protocol: Document 12/04/22 09:55 LRN (Rec: 12/04/22 10:44 LRN [id number]) Posture Evaluation Position Standing T-Spine Posture Increased Kyphosis L-Spine Posture Flattened Shoulder Posture (L) Elevated Pelvis Posture (R) Iliac Crest Superior Knee Posture (L) Neutral Comments Posture Comments Mild C-curve of thoracic spine with apex on L at T5-T6. Notable swelling in L lower leg. Palpation Assessment Location L leg Palpation Location Knee distally anterior Palpation Findings Edema,Soft Tissue Tightness Low Back Palpation Location Pain at level of L3, L4 Palpation Findings Muscle Guarding,Tenderness PT-OP-K Range of Motion Start: 11/29/22 16:37 Freq: Status: Active Protocol: Document 12/04/22 09:55 LRN (Rec: 12/04/22 10:44 LRN [id number]) Lumbar Spine Range of Motion Lumbar Spine Active Degrees Testing Position Standing Flexion 70 Extension 10 ROM Limitations Pain Knee Goniometric Range of Motion Knee Right Knee ROM WFL Yes Patient Position Semi-reclined Comments AROM is 0-126 Left Knee ROM WFL Yes Patient Position Semi-reclined Comments AROM is 0-126 PT-OP-L Special Tests Start: 11/29/22 16:37 Freq: Status: Active Protocol: Document 12/09/22 13:52 LRN (Rec: 12/09/22 16:53 LRN [id number]) Special Tests Lumbar Spine Special Tests Slump Test Results + L, neutral tension R Comments L LE testing resulted in onset of R low back pain. PT-OP-Q Treatments Start: 11/29/22 16:37 Freq: Status: Active Protocol: Document 01/13/23 09:45 NBM (Rec: 01/13/23 10:34 NBM [id number]) Therapeutic Exercises Supine Exercises Guanaco shoulder ext/scap retract Supine Exercise Name Guanaco shoulder ext/scap retrac Reps/Minutes 5 SH reps - 3' Comments pt reports no increase in baseline pain Sidelying Exercises open book Sidelying Exercise Name Hold due to T-sp compression fx Other Exercises Semi-reclined bridging Other Exercise Name Supine>Semi-reclined bridging Equipment Used ice to back (altenating with MHP) Reps/Minutes 10x Comments cued breathing and TrA - improved tolerance Semi-reclined trunk ext Other Exercise Name Semi-reclined trunk Ext Equipment Used MH to back Reps/Minutes 5 SH x 15 Comments cues for UT overactivation Manual Therapy Treatment Soft Tissue Mobilization Lumbar Paraspinals Body Location R QL Mobilization Type Strumming,Sustained Pressure, Trigger Point Release Intensity/Depth Moderate Body Position Sidelying Thoracic Paraspinals Body Location L Thoracic Paraspinals (T10- T11) Mobilization Type Strumming,Sustained Pressure, Trigger Point Release Intensity/Depth Moderate Body Position Sidelying PT-OP-R Modalities Start: 11/29/22 16:37 Freq: Status: Active Protocol: Document 01/13/23 09:45 NBM (Rec: 01/13/23 10:34 NBM [id number]) Hot Pack/Cold Pack Treatment Cold Pack Location thoracolumbar region Patient Position Supine Treatment Duration (minutes) 10 Patient Tolerance Good Comments semi-reclined, two pillows behind head PT-OP-T Assessment and Plan Start: 11/29/22 16:37 Freq: Status: Active Protocol: Document 01/13/23 09:45 NBM (Rec: 01/13/23 10:34 NBM [id number]) Physical Therapy Assessment Impairments Impairments Activity Tolerance,Edema,Pain, Posture Goals Three Impairment Decreased function Impairment AYESHA score is 18 (1-19% impaired, score 1-19). Pt goal is to get the back pain resolvedyoga), and control pain w/o medications. Short Term Goal (STG) Pt to walk farther and resume yoga. STG Duration 01/10/23 Precise Winder Goal (LTG) Improve function with improved AYESHA score of no greater than 10 (1-19% impaired, score 1-19 ). LTG Duration 02/13/23 Two Impairment LBP rated 6/10. Impairment Across LBP ~ level of L3-L4. Short Term Goal (STG) Decrease LBP to 3/10 and intermittent. 12/12/22: With cues for Transverse abdominus activation and breathing pt is able to perform HEP AROM lumbar bridging and AROM lumbar pelvic tilt ant w/out increase in baseline symptoms. STG Duration 01/10/23 Precise Winder Goal (LTG) Resolve LBP with minimal or no use of medications. LTG Duration 02/13/23 One Impairment Lacks appropriate self care HEP. Short Term Goal (STG) Pt educated in proper sitting and standing posture and L LE edema management. STG Duration 02/11/23 Mcc Goal (LTG) Pt will be educated in a self care HEP of low back and L knee flexibility and strengthening 12/12/22: With cues for Transverse abdominus activation and breathing Celena is able to perform HEP AROM lumbar bridging and AROM lumbar pelvic tilt ant w/out increase in baseline symptoms. LTG Duration 02/13/23 Assessment Summary Assessment Treatment focus on gentle thoracic extension isometric strengthening semi-reclined with arms at sides and cold pack/moist heat pack contrast, and manual therapy with focus on R Quadratus lumborum and thoracic paraspinals T10-T11. Celena is able to perform isometric ex's without increase in baseline pain and requires occasional cues for Upper trapezius overactivation . Reviewed instructions for HEP to avoid rotation ex's such as Open book stretch and pt expresses understanding. Palpable tightness at R QL and swapnil thoracic paraspinals improves with manual therapy. Pt is concerned her RLE swelling and redness is due to cellulitis - no difference in temperature noted between LLE and RLE. Pt is educated to trent redness of R lower leg w/ sharpie to monitor if it is spreading and encouraged to go to ER if it is. Physical Therapy Plan Frequency and Duration Frequency of Treatment 2x/Week Plan of Care Start Date 12/04/22 Plan of Care End Date 02/13/23 Therapeutic Interventions Therapeutic Interventions Home Exercise Program,Manual Therapy,Neuromuscular Re- education,Patient/Caregiver Education,Self-Care/Home Management,Soft Tissue Mobilization,Therapeutic Activities,Therapeutic Exercises Modalities Cold Pack/Ice Massage,Hot Packs Next Visit Focus/Plan Next Note Type Treatment Note Next Visit Plan NOTE: Pt w/pacemaker & Osteopenia, CHF, heart disease . Educate pt in proper sitting/ standing posture. Assess for use of cane to support back. Monitor for LLE pedal pulse if swelling persists. Education of pt in edema management and possibly self lymphatic massage or lymphatic L LE ex program. Manual: L/S to improve flexion (spinal balancing), STM to low back; Cont Ex: LB flex/ext, if tolerated LE neural glides sliders; isolated T/S ext, isolated L/S flex, Add: core stab (L/S flex) strengthening and guanaco thoracic ext ex's. Modalities of MH/Ice. No electric modalities due to pacemaker.
--- NOTE | 2023-01-19 11:07 | PT.OTN ---
Current Diagnoses Postural kyphosis, cervicothoracic region (01/19/23) Low back pain, unspecified (01/19/23) Pain in left leg (01/19/23) Other specified soft tissue disorders (01/19/23) Unsteadiness on feet (01/19/23) Physical Therapy Treatment Note PT-OP-A Visit Information Start: 11/29/22 16:37 Freq: Status: Active Protocol: Document 01/19/23 09:56 NBM (Rec: 01/19/23 10:58 NBM [id number]) Out-Patient Physical Therapy Visit Information Visit Information Visit Type Treatment Note Visit Note One more visit scheduled w/ PT . Pt requests short session today to end 10:35a-10:40a. 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 PT-OP-B Current Condition Start: 11/29/22 16:37 Freq: Status: Active Protocol: Document 12/04/22 09:55 LRN (Rec: 12/04/22 10:44 LRN [id number]) Current Condition History of Current Condition Onset Date 09/26/22 Current Complaints Back pain, L leg stiffness and lower leg edema. History of Current Condition Pt reports she was getting up from recliner and tripped over pillow landing on carpet. Wasn't in a brewster and was able to stand up and walk, but noticed immediate swelling in the LLE. Initially she couldn 't bend the L knee, but now is able to and reports no pain in the LE, only stiffness and swelling. She reports delayed compromise from not bending at the L knee causing onset of L LBP. Was on blood thinners when had accident and is still on blood thinners. Pt no longer complains of L knee pain, but only back pain. States everything takes a lot of time, dressing, putting on socks, bending, walking (less) , stretches/yoga - limited, and she has difficulty getting off the floor. She is able to sleep in bed on her back, but elevated on wedge. She only starts out with LBP. She sleeps on her back due to nighttime O2 needs. Pt reported PMH: fractured shoulder last January 2022. Social hx: Pt states she is active, lives alone in own home but her granddaughter has been living with her. Using heat and ice at home. Prior Treatments and Tests Pain medication, no longer taking. Now on advanced Tylenol. Treatment Goals Patient/Caregiver Goals Pt goal is to get the back pain resolved or where it is not a problem (be able to walk farther, resume yoga), and control pain w/o medications. 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 Although not mentioned as a goal she reports dysfunctions of: back pain makes everything takes a lot of time , dressing, putting on socks, bending, walking (less), stretches/yoga - limited, difficulty getting off the floor. 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 Does exercises for her shoulder and arms since fracture January 2022. Personal Factors Other Personal Factors That May Effect Cardiac pacemaker, cardiac Therapy/Recovery history, active with doing research with a discussion group 1x/month and another discussion group discussing books. PT-OP-C Subjective Start: 11/29/22 16:37 Freq: Status: Active Protocol: Document 01/19/23 09:56 [facility] (Rec: 01/19/23 10:58 [facility] [id number]) OP-PT Subjective Patient Comments Patient Comments Pt reports she will be getting a thoracic back brace hopefully this week, and is pleased if she only gets one back spasm a day. Dr Camara has her on a very good regimen of 5,000 units Vit D and 1200 mg Vit C, and a nasal spray which has a component to help with bone strengthening. She used a sharpie to outline the redness of her R leg which she thinks was cellulitis, and thinks the antibiotic cream has been helping because it has noticeably cleared up in some places. The R leg swelling has slightly improved and she has been elevating it above her heart at least once a day with pillows, but she wants a different recliner that can recline all the way to put her leg above her heart . End of session pt advised she had to cancel next visit w / ANALOG [employer] DESIGNER so last scheduled visit is with PT next week. Patient Reported Progress Improving PT-OP-H Neuro Start: 11/29/22 16:37 Freq: Status: Active Protocol: Document 12/09/22 13:52 LRN (Rec: 12/09/22 16:51 LRN [id number]) Deep Tendon Reflex & Clonus Assessment Deep Tendon Reflex Right Achilles Deep Tendon Reflex 2+ Normal Left Achilles Deep Tendon Reflex 1+ Diminished Bilateral Patellar Deep Tendon Reflex 3+ Normal But Brisk PT-OP-J Posture/Palpation/Skin Start: 11/29/22 16:37 Freq: Status: Active Protocol: Document 12/04/22 09:55 LRN (Rec: 12/04/22 10:44 LRN [id number]) Posture Evaluation Position Standing T-Spine Posture Increased Kyphosis L-Spine Posture Flattened Shoulder Posture (L) Elevated Pelvis Posture (R) Iliac Crest Superior Knee Posture (L) Neutral Comments Posture Comments Mild C-curve of thoracic spine with apex on L at T5-T6. Notable swelling in L lower leg. Palpation Assessment Location L leg Palpation Location Knee distally anterior Palpation Findings Edema,Soft Tissue Tightness Low Back Palpation Location Pain at level of L3, L4 Palpation Findings Muscle Guarding,Tenderness PT-OP-K Range of Motion Start: 11/29/22 16:37 Freq: Status: Active Protocol: Document 12/04/22 09:55 LRN (Rec: 12/04/22 10:44 LRN [id number]) Lumbar Spine Range of Motion Lumbar Spine Active Degrees Testing Position Standing Flexion 70 Extension 10 ROM Limitations Pain Knee Goniometric Range of Motion Knee Right Knee ROM WFL Yes Patient Position Semi-reclined Comments AROM is 0-126 Left Knee ROM WFL Yes Patient Position Semi-reclined Comments AROM is 0-126 PT-OP-L Special Tests Start: 11/29/22 16:37 Freq: Status: Active Protocol: Document 12/09/22 13:52 LRN (Rec: 12/09/22 16:53 LRN [id number]) Special Tests Lumbar Spine Special Tests Slump Test Results + L, neutral tension R Comments L LE testing resulted in onset of R low back pain. PT-OP-Q Treatments Start: 11/29/22 16:37 Freq: Status: Active Protocol: Document 01/19/23 09:56 NBM (Rec: 01/19/23 10:58 NB [id number]) Therapeutic Exercises Supine Exercises Guanaco shoulder ext/scap retract Supine Exercise Name Guanaco shoulder ext/scap retrac Equipment Used Cold pack alt with moist heat Reps/Minutes 5 SH reps - 3' Comments semi-reclined today - no increase in pain, vc chin tuck & excessive UT Gabe arm lifts Supine Exercise Name Gabe arm lifts- Hold d/t T-sp compression fx Side bilateral Reps/Minutes 2' Comments R arm mobility limited. Alt arm lifts Supine Exercise Name Alternate arm lifts-Hold d/t T -sp compression fx Side bilateral Reps/Minutes 3' Other Exercises Semi-reclined upper body rot Other Exercise Name Ufdf-Wcvg-ohdsldix upper body 20 deg's rot (arms to ceiling > side to side) Side bilateral Reps/Minutes 15x Comments Cuing to follow hands with head and to breath. Semi-reclined trunk rot Other Exercise Name Hold d/t T-sp compression fx- Semi-reclined knee rolls - 20 deg's rotation Side bilateral Equipment Used ice to back (altenating with MHP) Reps/Minutes 15x Semi-reclined bridging Other Exercise Name Supine>Semi-reclined bridging Equipment Used ice to back (altenating with MHP) Reps/Minutes 10x Comments cued breathing and TrA - improved tolerance Semi-reclined trunk ext Other Exercise Name Semi-reclined trunk Ext Equipment Used MH to back Reps/Minutes 5 SH x 15 Comments cues for chin tuck & UT overactivation Manual Therapy Treatment Soft Tissue Mobilization Lumbar Paraspinals Body Location R QL Mobilization Type Strumming,Sustained Pressure, Trigger Point Release Intensity/Depth Moderate Body Position Sidelying Thoracic Paraspinals Body Location L Thoracic Paraspinals (T10- T11) Mobilization Type Strumming,Sustained Pressure, Trigger Point Release Intensity/Depth Moderate Body Position Sidelying PT-OP-R Modalities Start: 11/29/22 16:37 Freq: Status: Active Protocol: Document 01/13/23 09:45 NBM (Rec: 01/13/23 10:34 [facility] [id number]) Hot Pack/Cold Pack Treatment Cold Pack Location thoracolumbar region Patient Position Supine Treatment Duration (minutes) 10 Patient Tolerance Good Comments semi-reclined, two pillows behind head PT-OP-T Assessment and Plan Start: 11/29/22 16:37 Freq: Status: Active Protocol: Document 01/19/23 09:56 NBM (Rec: 01/19/23 10:58 NBM [id number]) Physical Therapy Assessment Impairments Impairments Activity Tolerance,Edema,Pain, Posture Goals Three Impairment Decreased function Impairment AYESHA score is 18 (1-19% impaired, score 1-19). Pt goal is to get the back pain resolvedyoga), and control pain w/o medications. Short Term Goal (STG) Pt to walk farther and resume yoga. 01/19/23: Pt to obtain thoracic brace this week, unable to perform rotational movements due to T-sp compression fx, and is pain- limited with mobility. STG Duration 01/10/23 Shelter Goal (LTG) Improve function with improved AYESHA score of no greater than 10 (1-19% impaired, score 1-19 ). LTG Duration 02/13/23 Two Impairment LBP rated 6/10. Impairment Across LBP ~ level of L3-L4. Short Term Goal (STG) Decrease LBP to 3/10 and intermittent. 12/12/22: With cues for Transverse abdominus activation and breathing pt is able to perform HEP AROM lumbar bridging and AROM lumbar pelvic tilt ant w/out increase in baseline symptoms. STG Duration 01/10/23 Shelter Goal (LTG) Resolve LBP with minimal or no use of medications. 01/19/23: Pt using 4% Lidocaine patch for LBP. LTG Duration 02/13/23 One Impairment Lacks appropriate self care HEP. Short Term Goal (STG) Pt educated in proper sitting and standing posture and L LE edema management. 01/19/23: Pt elevating LE once daily in recliner w/ pillows - wants to get full recliner to elevate leg above heart w/o pillows. STG Duration 02/11/23 Shelter Goal (LTG) Pt will be educated in a self care HEP of low back and L knee flexibility and strengthening 12/12/22: With cues for Transverse abdominus activation and breathing Celena is able to perform HEP AROM lumbar bridging and AROM lumbar pelvic tilt ant w/out increase in baseline symptoms. 01/19/23: Celena is able to perform HEP AROM lumbar bridging semi-reclined w/out increase in baseline symptoms or cues for Transverse abdominus activation and breathing. LTG Duration 02/13/23 Assessment Summary Assessment Continuing treatment focus on gentle thoracic extension isometric strengthening semi- reclined, with use of alternating moist heat and cold pack. Celena is able to sustain holds without cueing but does require occasional cues for excessive Upper trapezius engagement and frequent cues for chin tuck. Pt demonstrates appropriate safety with avoiding rotational movements. Pt notes improving core strength with semi-reclined bridging, and reports no increase in baseline symptoms with exercises except for one spasm to R QL with positional change from semi-reclined to supine. Palpable tension to R QL and thoracic paraspinals improves w/ manual therapy and pt provides a positive feedback response. Next visit is last scheduled w/ PT and pt may have thoracic brace, and plans to check with MD for guidance in continuing PT and discuss at next visit. Physical Therapy Plan Frequency and Duration Frequency of Treatment 2x/Week Plan of Care Start Date 12/04/22 Plan of Care End Date 02/13/23 Therapeutic Interventions Therapeutic Interventions Home Exercise Program,Manual Therapy,Neuromuscular Re- education,Patient/Caregiver Education,Self-Care/Home Management,Soft Tissue Mobilization,Therapeutic Activities,Therapeutic Exercises Modalities Cold Pack/Ice Massage,Hot Packs Next Visit Focus/Plan Next Note Type Treatment Note Next Visit Plan Last appt, asses D/C vs continuing PT. Assess thoracic brace if present. Pt requests chair recliner options for elevating LE above heart. NOTE: Pt w/pacemaker & Osteopenia, CHF, heart disease . Educate pt in proper sitting/ standing posture. Assess for use of cane to support back. Monitor for LLE pedal pulse if swelling persists. Education of pt in edema management and possibly self lymphatic massage or lymphatic L LE ex program. Manual: L/S to improve flexion (spinal balancing), STM to low back; Cont Ex: LB flex/ext, if tolerated LE neural glides sliders; isolated T/S ext, isolated L/S flex, Add: core stab (L/S flex) strengthening and guanaco thoracic ext ex's. Modalities of MH/Ice. No electric modalities due to pacemaker.
--- NOTE | 2023-01-26 19:47 | PT.OTN ---
Current Diagnoses Postural kyphosis, cervicothoracic region (01/26/23) Low back pain, unspecified (01/26/23) Pain in left leg (01/26/23) Other specified soft tissue disorders (01/26/23) Unsteadiness on feet (01/26/23) Physical Therapy Treatment Note PT-OP-A Visit Information Start: 11/29/22 16:37 Freq: Status: Active Protocol: Document 01/26/23 10:44 LRN (Rec: 01/26/23 11:23 LRN [id number]) Out-Patient Physical Therapy Visit Information Visit Information Visit Type Treatment Note Visit Start Time 10:44 Visit Stop Time 11:15 Total Visit Minutes 31 Visit Number 8 Evaluation Information Evaluation Date 12/04/22 Precautions Precautions T-sp compression fx - avoid rotation Per pt: Aortic valve replaced , Pacemaker-10/23/21, Aortic valve replacement, Cardiac ablation 10/28/21 several cardio conversions (last one before pacemaker placed); prior fractured L shoulder in January 2022 - still doing exercises. PT-OP-B Current Condition Start: 11/29/22 16:37 Freq: Status: Active Protocol: Document 12/04/22 09:55 LRN (Rec: 12/04/22 10:44 LRN [id number]) Current Condition History of Current Condition Onset Date 09/26/22 Current Complaints Back pain, L leg stiffness and lower leg edema. History of Current Condition Pt reports she was getting up from recliner and tripped over pillow landing on carpet. Wasn't in a brewster and was able to stand up and walk, but noticed immediate swelling in the LLE. Initially she couldn 't bend the L knee, but now is able to and reports no pain in the LE, only stiffness and swelling. She reports delayed compromise from not bending at the L knee causing onset of L LBP. Was on blood thinners when had accident and is still on blood thinners. Pt no longer complains of L knee pain, but only back pain. States everything takes a lot of time, dressing, putting on socks, bending, walking (less) , stretches/yoga - limited, and she has difficulty getting off the floor. She is able to sleep in bed on her back, but elevated on wedge. She only starts out with LBP. She sleeps on her back due to nighttime O2 needs. Pt reported PMH: fractured shoulder last January 2022. Social hx: Pt states she is active, lives alone in own home but her granddaughter has been living with her. Using heat and ice at home. Prior Treatments and Tests Pain medication, no longer taking. Now on advanced Tylenol. Treatment Goals Patient/Caregiver Goals Pt goal is to get the back pain resolved or where it is not a problem (be able to walk farther, resume yoga), and control pain w/o medications. 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 Although not mentioned as a goal she reports dysfunctions of: back pain makes everything takes a lot of time , dressing, putting on socks, bending, walking (less), stretches/yoga - limited, difficulty getting off the floor. 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 Does exercises for her shoulder and arms since fracture January 2022. Personal Factors Other Personal Factors That May Effect Cardiac pacemaker, cardiac Therapy/Recovery history, active with doing research with a discussion group 1x/month and another discussion group discussing books. PT-OP-C Subjective Start: 11/29/22 16:37 Freq: Status: Active Protocol: Document 01/26/23 10:44 LRN (Rec: 01/26/23 11:23 LRN [id number]) OP-PT Subjective Patient Comments Patient Comments Requests no STM and arm ex's due to back pain. Gets back brace today. States the R leg was found to have cellulitits and she was put on anti- biotics and the legs are less swollen and red. Finished with antibiotics 5 days ago. Pt requests pain management with use of hot/cold pack and discussion of self care. PT-OP-H Neuro Start: 11/29/22 16:37 Freq: Status: Active Protocol: Document 12/09/22 13:52 LRN (Rec: 12/09/22 16:51 LRN [id number]) Deep Tendon Reflex & Clonus Assessment Deep Tendon Reflex Right Achilles Deep Tendon Reflex 2+ Normal Left Achilles Deep Tendon Reflex 1+ Diminished Bilateral Patellar Deep Tendon Reflex 3+ Normal But Brisk PT-OP-J Posture/Palpation/Skin Start: 11/29/22 16:37 Freq: Status: Active Protocol: Document 12/04/22 09:55 LRN (Rec: 12/04/22 10:44 LRN [id number]) Posture Evaluation Position Standing T-Spine Posture Increased Kyphosis L-Spine Posture Flattened Shoulder Posture (L) Elevated Pelvis Posture (R) Iliac Crest Superior Knee Posture (L) Neutral Comments Posture Comments Mild C-curve of thoracic spine with apex on L at T5-T6. Notable swelling in L lower leg. Palpation Assessment Location L leg Palpation Location Knee distally anterior Palpation Findings Edema,Soft Tissue Tightness Low Back Palpation Location Pain at level of L3, L4 Palpation Findings Muscle Guarding,Tenderness PT-OP-K Range of Motion Start: 11/29/22 16:37 Freq: Status: Active Protocol: Document 12/04/22 09:55 LRN (Rec: 12/04/22 10:44 LRN [id number]) Lumbar Spine Range of Motion Lumbar Spine Active Degrees Testing Position Standing Flexion 70 Extension 10 ROM Limitations Pain Knee Goniometric Range of Motion Knee Right Knee ROM WFL Yes Patient Position Semi-reclined Comments AROM is 0-126 Left Knee ROM WFL Yes Patient Position Semi-reclined Comments AROM is 0-126 PT-OP-L Special Tests Start: 11/29/22 16:37 Freq: Status: Active Protocol: Document 12/09/22 13:52 LRN (Rec: 12/09/22 16:53 LRN [id number]) Special Tests Lumbar Spine Special Tests Slump Test Results + L, neutral tension R Comments L LE testing resulted in onset of R low back pain. PT-OP-Q Treatments Start: 11/29/22 16:37 Freq: Status: Active Protocol: Document 01/26/23 10:44 LRN (Rec: 01/26/23 19:22 LRN [id number]) Therapeutic Exercises Other Exercises Semi-reclined rolling Other Exercise Name Training for rolling side to side safely during modality changes Side bilateral Self-Care/Home Management Treatment Education Other Education Discussed at length pt care of stabilization of core to minimize mobility of T9 location vs exercise and soft tissue treatment. Reviewed pt to do arm ex's if tolerated and to focus on posturing and resting of core in position of comfort with back brace. Pt requesting treatment of hot/ cold for pain relief to her midback. Discussed POC for physical therapy and was decided pt will discharge for now and will seek a new referral when referring physician feels she is appropriate for therapy. Activities Self-Care/Home Management Activities Reviewed with pt appropriate ex's to include use of modalities for pain and use of UE's for exercise (elbow curls) and LE's (knee flex/ext ). Pt to use log roll method for transfers into positions of comfort. PT-OP-R Modalities Start: 11/29/22 16:37 Freq: Status: Active Protocol: Document 01/26/23 10:44 LRN (Rec: 01/26/23 19:25 LRN [id number]) Hot Pack/Cold Pack Treatment Hot Pack Location Midback/upperback used during pt education/self care Treatment Duration (minutes) 20 Patient Tolerance Good Comments 10'x 2 application of hotpack, alternating with coldpack. Starting and ending with hot pack. Cold Pack Location Midback used during pt education/self care Treatment Duration (minutes) 8 Patient Tolerance Good Comments 8' application of coldpack, alternating with hotpack. PT-OP-T Assessment and Plan Start: 11/29/22 16:37 Freq: Status: Active Protocol: Document 01/26/23 10:44 LRN (Rec: 01/26/23 11:23 LRN [id number]) Physical Therapy Assessment Goals Three Impairment Decreased function Impairment AYESHA score is 18 (1-19% impaired, score 1-19). Pt goal is to get the back pain resolvedyoga), and control pain w/o medications. Short Term Goal (STG) Pt to walk farther and resume yoga. 01/19/23: Pt to obtain thoracic brace this week, unable to perform rotational movements due to T-sp compression fx, and is pain- limited with mobility. 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 LTG Duration 02/13/23 (01/26/23: NOT MET GOAL) Two Impairment LBP rated 6/10. Impairment Across LBP ~ level of L3-L4. Short Term Goal (STG) Decrease LBP to 3/10 and intermittent. 12/12/22: With cues for Transverse abdominus activation and breathing pt is able to perform HEP AROM lumbar bridging and AROM lumbar pelvic tilt ant w/out increase in baseline symptoms. 01/26/23: LBP 0/10, Midback pain 9/10. STG Duration 01/10/23 (01/26/23: NOT MET GOAL) Longterm Goal (LTG) Resolve LBP with minimal or no use of medications. 01/19/23: Pt using 4% Lidocaine patch for LBP. 01/26/23: LB-MB pain is 0-9/10 . LTG Duration 02/13/23 (01/26/23: NOT MET GOAL) One Impairment Lacks appropriate self care HEP. Short Term Goal (STG) Pt educated in proper sitting and standing posture and L LE edema management. 01/19/23: Pt elevating LE once daily in recliner w/ pillows - wants to get full recliner to elevate leg above heart w/o pillows. 01/26/23: Pt not able to do proper sitting due to her midback pain. STG Duration 02/11/23 (01/26/23: MET GOAL) Longterm Goal (LTG) Pt will be educated in a self care HEP of low back and L knee flexibility and strengthening 12/12/22: With cues for Transverse abdominus activation and breathing Celena is able to perform HEP AROM lumbar bridging and AROM lumbar pelvic tilt ant w/out increase in baseline symptoms. 01/19/23: Celena is able to perform HEP AROM lumbar bridging semi-reclined w/out increase in baseline symptoms or cues for Transverse abdominus activation and breathing. 01/26/23: Pt not able tolerate ex's due to midback pain. She is able to sometimes do shoulder ex's. LTG Duration 02/13/23 (01/26/23: Progressed, NOT MET GOAL) Assessment Summary Assessment Pt continues to experience severe midback pain rated 9/10 at T9 level, location of fracture. The pt was able to meet the goal of pt education in proper sitting and standing , although due to spinal changes was not able to attempt improved posturing due to her current T9 fracture and pain. She is able to participate active ex of ROM of elbows and knees for strengthening, but not able to participate in core stabilization exercises. The pt is being fitted for a back brace today and would benefit from a hold on PT until she can heal and stabilize in the area of her fracture. When she has healed and measures to improve bone density, then she would be better appropriate for physical therapy. We could provide pain management treaments when she can tolerate STM and mobilization for modalities ( hot/cold treatments); therefore the pt is being discharged from therapy and a new referral will be needed for further therapy. Physical Therapy Plan Discharge Physical Therapy Discharge Reasons Change in Medical Status Discharge Comments Reviewed appropriate painfree exercise of UE (bicep curls) and LE's (knee ext/flex) and log roll technique for transfers. Pt is hoping to return to therapy in the future when feeling better. Thank you for your referral.
== END 2023-02-23 16:02 | disposition home or self-care (01) ==
LOC: PHYS 10:30
PROVIDERS: Family Provider Family Medicine; PCP Family Medicine; Referring Provider Family Medicine; Visit Provider Family Medicine
DX: M54.50 Low back pain, unspecified (principal); M79.605 Pain in left leg; M40.03 Postural kyphosis, cervicothoracic region; R26.81 Unsteadiness on feet; M79.89 Other specified soft tissue disorders
CPT/HCPCS: 97110; 97140; 97162; 97535

== ENCOUNTER → 2023-02-25 10:45 | Outpatient (CLI) | payer MEDICARE, OTHER, SELFPAY ==
--- NOTE | 2023-02-25 10:52 | DI.RAD.S_ITS ---
PROCEDURE: XR LUMBAR SPINE MIN 4V INDICATIONS: BACK PAIN TECHNIQUE: 5 views of the lumbar spine were acquired, including bilateral oblique views. COMPARISON: [facility], , XR LUMBAR SPINE 2-3V, 01/02/2023, 9:51. FINDINGS: Bones: 5 nonrib-bearing vertebrae are present. There is trace L1 on L2 and L2 on L3 retrolisthesis, unchanged from the prior study. There is exaggerated lordosis of the lumbar spine. No vertebral body compression fractures. No suspicious bony lesions. Mild degenerative changes are present including intervertebral disc space narrowing and osteophytosis. Soft tissues: Overlying bowel gas pattern is normal. No suspicious soft tissue calcifications. Oblique images: No pars defects. IMPRESSION: 1. Mild degenerative change. 2. Spondylolisthesis. No spondylolysis. 3. No compression deformities. Dictated by: Elsa Lee M.D. on 02/25/2023 at 11:30 Approved by: Elsa Lee M.D. on 02/25/2023 at 11:31
== END ==
PROVIDERS: Family Provider Family Medicine; PCP Family Medicine; Referring Provider Physical Medicine & Rehabilitation; Visit Provider Physical Medicine & Rehabilitation
DX: M43.16 Spondylolisthesis, lumbar region (principal); M99.03 Segmental and somatic dysfunction of lumbar region; M54.9 Dorsalgia, unspecified
CPT/HCPCS: 72110

== ENCOUNTER → 2023-03-05 08:39 | Outpatient (CLI) | payer MEDICARE, OTHER, SELFPAY ==
--- NOTE | 2023-03-05 08:40 | DI.RAD.S_ITS ---
PROCEDURE: XR CHEST 2V INDICATIONS: Shortness of breath TECHNIQUE: 2 views of the chest were acquired. COMPARISON: [facility], CR, XR CHEST 1V, 03/31/2022, 19:22. FINDINGS: Surgical changes and devices: Left cardiac pacemaker. Median sternotomy wires are present and appear intact. TAVR stent. Lungs and pleura: Diffuse interstitial prominence. Small bilateral pleural effusions. Streaky bibasilar opacities likely representing atelectasis. Suggestion of mild vascular congestion. No pneumothorax. Mediastinum: Mediastinal contours are stable. Heart size is normal. Bones and chest wall: No suspicious bony abnormalities. Soft tissues appear unremarkable. 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 Diffuse osteopenia. Chronic appearing moderate anterior compression fracture of the mid thoracic spine with associated focal kyphosis. IMPRESSION: Findings suggestive of pulmonary edema/CHF. Infectious or inflammatory process not excluded if clinically appropriate. Dictated by: Paramjit To M.D. on 03/05/2023 at 10:55 Approved by: Paramjit To M.D. on 03/05/2023 at 10:59
--- NOTE | 2023-03-05 08:40 | DI.RAD.S_ITS ---
PROCEDURE: XR THORACIC SPINE 3V INDICATIONS: T7/8 FRACTURE AND T9/10 FX TECHNIQUE: 3 views of the thoracic spine were acquired. COMPARISON: [facility], CR, XR THORACIC SPINE 3V, 01/02/2023, 9:51. FINDINGS: Bones: Redemonstration T7, T8 and T9 compression deformities, unchanged compared to prior. Decreased osseous mineralization. Multilevel degenerative changes of the thoracic spine. Sternotomy wires in place. Partially visualized pacemaker wires. Sternotomy wires. Soft tissues: No paravertebral stripe thickening. IMPRESSION: Redemonstration of compression deformities of the T7, T8 and T9 vertebral bodies which are stable compared to prior. No new acute fractures. Dictated by: Toan Tomlin M.D. on 03/05/2023 at 9:49 Approved by: Toan Tomlin M.D. on 03/05/2023 at 9:52
== END ==
PROVIDERS: Family Provider Family Medicine; PCP Family Medicine; Referring Provider Physical Medicine & Rehabilitation; Visit Provider Physical Medicine & Rehabilitation
DX: S22.060A Wedge compression fracture of T7-T8 vertebra, initial encounter for closed fracture (principal); S22.070A Wedge compression fracture of T9-T10 vertebra, initial encounter for closed fracture; R06.02 Shortness of breath; M81.0 Age-related osteoporosis without current pathological fracture
CPT/HCPCS: 71046; 72072

== ENCOUNTER → 2023-03-13 15:16 | Outpatient (CLI) | payer MEDICARE, OTHER, SELFPAY ==
[2023-03-13 15:44] LABS: Blood Urea Nitrogen 32 mg/dL (7-17); Calcium 8.9 mg/dL (8.4-10.2); Carbon Dioxide 34 mmol/L (22-32); Chloride 98 mmol/L (98-107); Estimated Glomerular Filt Rate 55 mL/min (>60); Glucose 112 mg/dL (80-110); HEMOLYSIS < 15 (0-50); Potassium 4.1 mmol/L (3.4-5.1); Sodium 138 mmol/L (137-145)
== END ==
PROVIDERS: Family Provider Family Medicine; PCP Family Medicine; Referring Provider Family Medicine; Visit Provider Family Medicine
DX: E87.70 Fluid overload, unspecified (principal)
CPT/HCPCS: 36415; 80048

== ENCOUNTER → 2023-04-15 09:40 | Outpatient (CLI) | payer MEDICARE, OTHER, SELFPAY ==
--- NOTE | 2023-04-15 09:42 | DI.RAD.S_ITS ---
PROCEDURE: XR LUMBAR SPINE MIN 4V INDICATIONS: LBP, h/o compression fx TECHNIQUE: Five views of the lumbar spine COMPARISON: [facility], CR, XR LUMBAR SPINE MIN 4V, 02/25/2023, 10:48. FINDINGS: Bones: Generalized decreased osseous mineralization noted. Hypertrophic facet joints noted throughout the exam, particularly in the lower lumbar spine. Grade 1 retrolisthesis at L2-3. Oblique images are unremarkable Soft tissues: Overlying bowel gas pattern is normal. No suspicious soft tissue calcifications. IMPRESSION: Degenerative disc disease and arthropathy without fracture. Approved by: Bradley Barillas M.D. on 04/15/2023 at 10:19
--- NOTE | 2023-04-15 09:42 | DI.RAD.S_ITS ---
PROCEDURE: XR CERVICAL SPINE 4V OR 5V INDICATIONS: neck pain TECHNIQUE: 5 views of the cervical spine acquired. COMPARISON: [facility], CR, XR CERVICAL SPINE 2V OR 3V, 01/02/2023, 9:51. FINDINGS: Bones: Generalized decreased osseous mineralization noted. Disc space narrowing and hypertrophic facet joints present in the mid to lower cervical spine. Grade 1 anterolisthesis C3-4 and retrolisthesis C4-5. Craniovertebral relationships are normal. Oblique images show severe osseous foraminal stenosis at C4-5 on the right Soft tissues: No prevertebral soft tissue swelling. IMPRESSION: Multilevel degenerative disc disease and arthropathy associated with severe foraminal stenosis on the right at C4-5 Approved by: Bradley Barillas M.D. on 04/15/2023 at 10:26
--- NOTE | 2023-04-15 09:42 | DI.RAD.S_ITS ---
PROCEDURE: XR THORACIC SPINE 3V INDICATIONS: h/o compression fx TECHNIQUE: 3 views of the thoracic spine were acquired. COMPARISON: [facility], CR, XR THORACIC SPINE 3V, 03/05/2023, 8:38. FINDINGS: Bones: Generalized decreased osseous mineralization noted. T7, T8 and T9 compression fractures are again noted, unchanged. Associated degenerative disc disease and arthropathy. Soft tissues: Midline sternal wires, single lead pacemaker, mitral valve clips and aortic valve replacement stable IMPRESSION: Stable multilevel osteopenic compression fractures Approved by: Bradley Barillas M.D. on 04/15/2023 at 10:17
== END ==
PROVIDERS: Family Provider Family Medicine; PCP Family Medicine; Referring Provider Anesthesiology; Visit Provider Anesthesiology
DX: S22.069A Unspecified fracture of T7-T8 vertebra, initial encounter for closed fracture (principal); S22.079A Unspecified fracture of T9-T10 vertebra, initial encounter for closed fracture; M51.34 Other intervertebral disc degeneration, thoracic region; M47.814 Spondylosis without myelopathy or radiculopathy, thoracic region; M51.36 Other intervertebral disc degeneration, lumbar region; M47.816 Spondylosis without myelopathy or radiculopathy, lumbar region; M50.321 Other cervical disc degeneration at C4-C5 level; M48.02 Spinal stenosis, cervical region; M47.812 Spondylosis without myelopathy or radiculopathy, cervical region; M54.50 Low back pain, unspecified; Z95.0 Presence of cardiac pacemaker
CPT/HCPCS: 72050; 72072; 72110

== ENCOUNTER 2023-04-27 09:30 | Outpatient (RCR) | payer MEDICARE, OTHER, SELFPAY ==
--- NOTE | 2023-03-04 16:38 | PT.OIE ---
Current Diagnoses Lymphedema, not elsewhere classified (03/04/23) Soft tissue disorder, unspecified (03/04/23) Difficulty in walking, not elsewhere classified (03/04/23) Past Medical History (Last Reviewed 02/26/23 @ 14:58 by Bonifacio Camara DO) Abdominal ascites Aortic valve stenosis (11/09/13) COPD exacerbation Foot deformities, congenital Hyperlipidemia Osteoporosis (~1989) T7 vertebral fracture T9 vertebral fracture Urinary incontinence Past Surgical History (Last Reviewed 02/26/23 @ 14:58 by Bonifacio Camara DO) History of aortic valve replacement with bioprosthetic valve (2015) History of carpal tunnel release History of tonsillectomy Normal colonoscopy (2005) Personal history of tricuspid valve disease Visit Care Team Role Provider Type Jonn Rangel MD Attending Provider Physician Family Provider Primary Care Provider Referring Provider Specialty: Family Practice Address: [address] [place] [address] Email: [email or web address] Physical Therapy Initial Evaluation PT-OP-A Visit Information Start: 03/04/23 08:09 Freq: Status: Active Protocol: Document 03/04/23 10:34 SAK (Rec: 03/04/23 11:21 SAK [id number]) Out-Patient Physical Therapy Visit Information Visit Information Visit Type Initial Evaluation Visit Start Time 10:34 Visit Stop Time 12:00 Total Visit Minutes 86 Visit Number 1 Evaluation Information Evaluation Date 03/04/23 PT-OP-B Current Condition Start: 03/04/23 08:09 Freq: Status: Active Protocol: Document 03/04/23 10:34 SAK (Rec: 03/04/23 11:21 SAK [id number]) Current Condition History of Current Condition Onset Date October 2022 Current Complaints LE swelling History of Current Condition Sep 26 2022 fell in house while going to answer the door ; got legs tangled in pillow that had been supporting her legs on recliner. Fell onto inside of left knee, was able to stand up. Bruised; turned purple with hematoma and swelled, couldn't bend L knee x 3 weeks. Swelling left LE has continued since that time. Since November right LE started to swell. Legs got red and scaley in December , diagnosed with cellulitis, put on antibiotics, resolved, then cellulitis returned. Hasn't worn compression socks for a long time due to compression fractures, states thinks they were relatively low compression but still hard to don. Goes for walks 30-45 minutes using walker. Has son living with her right now and can assist as needed. Patient agreeable to having him come in for next PT visit for training. Treatment Goals Patient/Caregiver Goals decrease her leg lymphedema, be able to self-manage Prior Functional Status Baseline Function- ADL's Modified Independent Baseline Function- Mobility Modified Independent Baseline Function- Gait uses 3 and 4 wheeled walkers Current Functional Impairments (Reported) Functional Limitations- ADL's difficulty to lift legs Functional Limitations- Mobility/Gait decreased distance due to heaviness of legs Personal Factors Other Personal Factors That May Effect Abdominal ascites Therapy/Recovery Aortic valve stenosis () COPD exacerbation Foot deformities, congenital Cellulitis Hyperlipidemia Osteoporosis (~1989) T7 vertebral fracture T9 vertebral fracture Urinary incontinence History of aortic valve replacement with bioprosthetic valve (2015) History of carpal tunnel release History of tonsillectomy Normal colonoscopy (2005) Personal history of tricuspid valve disease PT-OP-C Subjective Start: 03/04/23 08:09 Freq: Status: Active Protocol: Document 03/04/23 10:34 [facility] (Rec: 03/04/23 16:23 [facility] [id number]) OP-PT Pain Assessment Pain Assessment Grid Paper Pain Assessment Grid Completed Yes Location swapnil LE's Intensity 2 PT-OP-F Manual Assessment Start: 03/04/23 08:09 Freq: Status: Active Protocol: Document 03/04/23 10:34 SAK (Rec: 03/04/23 16:23 [facility] [id number]) Manual Assessments Soft Tissue Assessment Soft Tissue Mobility Assessment palpable LE fibrosis right greater than left, thickest posterior aspect right knee PT-OP-G Mobility & Gait Start: 03/04/23 08:09 Freq: Status: Active Protocol: Document 03/04/23 10:34 SAK (Rec: 03/04/23 16:23 [facility] [id number]) OP Mobility Evaluation Bed Mobility Rolling SBA Supine to and from Sit SBA Transfers Sit to Stand SBA OP Gait Assessment Gait Gait Assistance Required: Independent Assistive Devices Assistive Device 4 Wheeled Walker Orthotic/Prosthetic Devices or Brace: No Gait Deviations General Gait Pattern Decreased Stride Length, Decreased Feet Clearance, Narrow Based Gait Comments Gait Comments heaviness of legs PT-OP-J Posture/Palpation/Skin Start: 03/04/23 08:09 Freq: Status: Active Protocol: Document 03/04/23 10:34 SAK (Rec: 03/04/23 16:23 SAK [id number]) Skin Assessment Edema Assessment swapnil LE's Edema Appearance Dimpled,Discolored,Taut Subjective Edema Description Itching Comments right greater than left. Other Assessments Skin Assessment Comments hyperkeratosis right greater than left swapnil LEs PT-OP-K Range of Motion Start: 03/04/23 08:09 Freq: Status: Active Protocol: Document 03/04/23 10:34 SAK (Rec: 03/04/23 16:23 [facility] [id number]) Hip Goniometric Range of Motion Hip swpanil Hip ROM WFL Yes Knee Goniometric Range of Motion Knee Right Knee ROM WFL No Left Knee ROM WFL Yes Knee ROM Limitations Knee ROM Limitations Soft Tissue Tightness,Swelling PT-OP-N Lymphedema Start: 03/04/23 08:09 Freq: Status: Active Protocol: Document 03/04/23 10:34 SAK (Rec: 03/04/23 11:21 [facility] [id number]) Lymphedema Measurements Lower Extremity Circumference Measurements Right MT Heads 24.2 cm Mid-foot 23.7 cm Medial Malleolus 27 cm 10 cm From Medial Malleolus 22.9 cm 20 cm From Medial Malleolus 32 cm 30 cm From Medial Malleolus 39.8 cm 40 cm From Medial Malleolus 40.9 cm 50 cm From Medial Malleolus 48 cm 60 cm From Medial Malleolus 52.8 cm 70 cm From Medial Malleolus 58.9 cm Knee Joint 45.3 cm Left MT Heads 23.5 cm Mid-foot 23.2 cm Medial Malleolus 26.8 cm 10 cm From Medial Malleolus 22.8 cm 20 cm From Medial Malleolus 31.8 cm 30 cm From Medial Malleolus 39.5 cm 40 cm From Medial Malleolus 40.8 cm 50 cm From Medial Malleolus 46.4 cm 60 cm From Medial Malleolus 49.9 cm 70 cm From Medial Malleolus 57.4 cm Knee Joint 44 cm - measured from heel PT-OP-Q Treatments Start: 03/04/23 08:09 Freq: Status: Active Protocol: Document 03/04/23 10:34 SAK (Rec: 03/04/23 16:23 [facility] [id number]) Lymphedema Treatment Manual Lymphatic Drainage Location swapnil LE's Duration 20 Lymphedema Wrapping Other discussed and patient shown written and online pictures. She was not wearing adequate clothing or shoes to allow for bandaging. Patient Education Lymphedema Pathology patient instructed Lymphedema Precautions issued written precautions Compression Garments discussed options Self Manual Lymphatic Drainage pt instructed Sequential Lymphedema Exercises pt instructed PT-OP-T Assessment and Plan Start: 03/04/23 08:09 Freq: Status: Active Protocol: Document 03/04/23 10:30 [facility] (Rec: 03/04/23 16:36 [facility] [id number]) Physical Therapy Assessment Rehab Potential Rehabilitation Potential Good Evaluation Complexity Number of Personal Factors/Comorbidities 1-2 Number of Body Systems Impaired 3 Clinical Presentation at Evaluation Evolving Impairments Impairments Activity Tolerance,Edema,Soft Tissue Mobility Goals One Impairment lymphedema swapnil LE's right greater than left Short Term Goal (STG) Patient will be instructed in all aspects of lymphedema self -care to include skin care, self-massage, self-bandaging, and lymphedema exercises. STG Duration 04/04/23 [facility] Goal (LTG) Decrease patient?s lymphedema to a stable level (no increase or decrease greater than 1 cm over the course of 1 week), patient to be independent with all aspects of self care for lymphedema, and will obtain appropriate compression garment for lymphedema management in the home. LTG Duration 06/04/23 Three Impairment limited walking due to LE lymphedema [facility] Goal (LTG) Reduce lymphedema sufficient to allow patient to tolerate usual walks for health and function and in the community. LTG Duration 06/04/23 Two Impairment tissue fibrosis in LE's right greater than left [facility] Goal (LTG) Decrease soft tissue fibrosis bilateral LE's by at least 50% for improved lymphatic flow and LE function LTG Duration 06/04/23 Assessment Summary Assessment Patient presents to PT with function-limitingedema bilateral LE's right greater than left, has recent history of cellulitis. Signs and symptoms consistent with lymphedema Stage 3 with skin fibrosis, thickening. Patient has previously worn knee high compression stockings but has not worn recently due to not fitting plus difficulty donning especially with recent compression fractures in thoracic spine Feel she would benefit from PT for lymphedema treatment to decrease the size of her legs, educate her in self- management, and help her to obtain appropriate compression garments; recommendation for thigh high or pantyhose style. Discussed POC with patient and she was in agreement. Physical Therapy Plan Frequency and Duration Frequency of Treatment 20 visists Duration of treatment (weeks) 12 Plan of Care Start Date 03/04/23 Plan of Care End Date 06/04/23 Therapeutic Interventions Therapeutic Interventions Home Exercise Program, Lymphedema Management,Manual Therapy,Patient/Caregiver Education,Self-Care/Home Management,Soft Tissue Mobilization,Therapeutic Exercises Modalities Vasopneumatic Devices Next Visit Focus/Plan Next Note Type Treatment Note Next Visit Plan MLD wsapnil LE's, review self MLD and lymphedema exercises. Provide LE lymphedema bandaging with instruction of son if able to attend PT appointment. Show donning aids and do further discussion regarding compression garments.
--- NOTE | 2023-03-04 16:38 | PT.OPPOC ---
Physical, Occupational & Speech Therapy At [facility] Current Diagnoses Lymphedema, not elsewhere classified (03/04/23) Soft tissue disorder, unspecified (03/04/23) Difficulty in walking, not elsewhere classified (03/04/23) Visit Care Team Role Provider Type Jonn Rangel MD Attending Provider Physician Family Provider Primary Care Provider Referring Provider Specialty: Family Practice Address: [address] [place] [address], [facility] Email: [email or web address] Plan Of Care PT-OP-T Assessment and Plan Start: 03/04/23 08:09 Freq: Status: Active Protocol: Document 03/04/23 10:30 SAK (Rec: 03/04/23 16:36 SAK [id number]) Physical Therapy Assessment Rehab Potential Rehabilitation Potential Good Evaluation Complexity Number of Personal Factors/Comorbidities 1-2 Number of Body Systems Impaired 3 Clinical Presentation at Evaluation Evolving Impairments Impairments Activity Tolerance,Edema,Soft Tissue Mobility Goals One Impairment lymphedema swapnil LE's right greater than left Short Term Goal (STG) Patient will be instructed in all aspects of lymphedema self -care to include skin care, self-massage, self-bandaging, and lymphedema exercises. STG Duration 04/04/23 Staff Auditor Goal (LTG) Decrease patient?s lymphedema to a stable level (no increase or decrease greater than 1 cm over the course of 1 week), patient to be independent with all aspects of self care for lymphedema, and will obtain appropriate compression garment for lymphedema management in the home. LTG Duration 06/04/23 Three Impairment limited walking due to LE lymphedema Staff Auditor Goal (LTG) Reduce lymphedema sufficient to allow patient to tolerate usual walks for health and function and in the community. LTG Duration 06/04/23 Two Impairment tissue fibrosis in LE's right greater than left Staff Auditor Goal (LTG) Decrease soft tissue fibrosis bilateral LE's by at least 50% for improved lymphatic flow and LE function LTG Duration 06/04/23 Assessment Summary Assessment Patient presents to PT with function-limitingedema bilateral LE's right greater than left, has recent history of cellulitis. Signs and symptoms consistent with lymphedema Stage 3 with skin fibrosis, thickening. Patient has previously worn knee high compression stockings but has not worn recently due to not fitting plus difficulty donning especially with recent compression fractures in thoracic spine Feel she would benefit from PT for lymphedema treatment to decrease the size of her legs, educate her in self- management, and help her to obtain appropriate compression garments; recommendation for thigh high or pantyhose style. Discussed POC with patient and she was in agreement. Physical Therapy Plan Frequency and Duration Frequency of Treatment 20 visists Duration of treatment (weeks) 12 Plan of Care Start Date 03/04/23 Plan of Care End Date 06/04/23 Therapeutic Interventions Therapeutic Interventions Home Exercise Program, Lymphedema Management,Manual Therapy,Patient/Caregiver Education,Self-Care/Home Management,Soft Tissue Mobilization,Therapeutic Exercises Modalities Vasopneumatic Devices Next Visit Focus/Plan Next Note Type Treatment Note Next Visit Plan MLD swapnil LE's, review self MLD and lymphedema exercises. Provide LE lymphedema bandaging with instruction of son if able to attend PT appointment. Show donning aids and do further discussion regarding compression garments. Plan of Care Dates Plan of Care Start Date 03/04/23 Plan of Care End Date 06/04/23 Electronically Signed by: Cristina Alfonso, PT 03/04/23 [id number] If you are in agreement with this Plan of Care, please return a signed and dated copy. I have reviewed this Plan of Care and certify that the skilled therapy services above are required to meet the patient?s needs. Physician Signature Date Printed Name and Credentials Clinical Instructor Signature Printed Name and Credentials
--- NOTE | 2023-03-12 12:46 | PT.OTN ---
Current Diagnoses Lymphedema, not elsewhere classified (03/12/23) Soft tissue disorder, unspecified (03/12/23) Difficulty in walking, not elsewhere classified (03/12/23) Physical Therapy Treatment Note PT-OP-A Visit Information Start: 03/04/23 08:09 Freq: Status: Active Protocol: Document 03/12/23 10:25 SAK (Rec: 03/12/23 12:03 SAK [id number]) Out-Patient Physical Therapy Visit Information Visit Information Visit Type Treatment Note Visit Start Time 10:31 Visit Stop Time 11:54 Total Visit Minutes 83 Visit Number 2 Evaluation Information Evaluation Date 03/04/23 PT-OP-B Current Condition Start: 03/04/23 08:09 Freq: Status: Active Protocol: Document 03/12/23 10:25 SAK (Rec: 03/12/23 12:03 SAK [id number]) Current Condition History of Current Condition Onset Date October 2022 Current Complaints LE swelling History of Current Condition Sep 26 2022 fell in house while going to answer the door ; got legs tangled in pillow that had been supporting her legs on recliner. Fell onto inside of left knee, was able to stand up. Bruised; turned purple with hematoma and swelled, couldn't bend L knee x 3 weeks. Swelling left LE has continued since that time. Since November right LE started to swell. Legs got red and scaley in December , diagnosed with cellulitis, put on antibiotics, resolved, then cellulitis returned. Hasn't worn compression socks for a long time due to compression fractures, states thinks they were relatively low compression but still hard to don. Goes for walks 30-45 minutes using walker. Has son living with her right now and can assist as needed. Patient agreeable to having him come in for next PT visit for training. Treatment Goals Patient/Caregiver Goals decrease her leg lymphedema, be able to self-manage Personal Factors Other Personal Factors That May Effect Abdominal ascites Therapy/Recovery Aortic valve stenosis () COPD exacerbation Foot deformities, congenital Cellulitis Hyperlipidemia Osteoporosis (~1989) T7 vertebral fracture T9 vertebral fracture Urinary incontinence History of aortic valve replacement with bioprosthetic valve (2015) History of carpal tunnel release History of tonsillectomy Normal colonoscopy (2005) Personal history of tricuspid valve disease PT-OP-C Subjective Start: 03/04/23 08:09 Freq: Status: Active Protocol: Document 03/12/23 10:25 SAK (Rec: 03/12/23 12:03 [facility] [id number]) OP-PT Subjective Patient Comments Patient Comments Was prescribed Lasix 2 pills per day x 2 weeks, that is through tomorrow. PT-OP-F Manual Assessment Start: 03/04/23 08:09 Freq: Status: Active Protocol: Document 03/04/23 10:34 SAK (Rec: 03/04/23 16:23 [facility] [id number]) Manual Assessments Soft Tissue Assessment Soft Tissue Mobility Assessment palpable LE fibrosis right greater than left, thickest posterior aspect right knee PT-OP-G Mobility & Gait Start: 03/04/23 08:09 Freq: Status: Active Protocol: Document 03/04/23 10:34 SAK (Rec: 03/04/23 16:23 [facility] [id number]) OP Mobility Evaluation Bed Mobility Rolling SBA Supine to and from Sit SBA Transfers Sit to Stand SBA OP Gait Assessment Gait Gait Assistance Required: Independent Assistive Devices Assistive Device 4 Wheeled Walker Orthotic/Prosthetic Devices or Brace: No Gait Deviations General Gait Pattern Decreased Stride Length, Decreased Feet Clearance, Narrow Based Gait Comments Gait Comments heaviness of legs PT-OP-J Posture/Palpation/Skin Start: 03/04/23 08:09 Freq: Status: Active Protocol: Document 03/04/23 10:34 SAK (Rec: 03/04/23 16:23 [facility] [id number]) Skin Assessment Edema Assessment swapnil LE's Edema Appearance Dimpled,Discolored,Taut Subjective Edema Description Itching Comments right greater than left. Other Assessments Skin Assessment Comments hyperkeratosis right greater than left swapnil LEs PT-OP-K Range of Motion Start: 03/04/23 08:09 Freq: Status: Active Protocol: Document 03/04/23 10:34 SAK (Rec: 03/04/23 16:23 [facility] [id number]) Hip Goniometric Range of Motion Hip swapnil Hip ROM WFL Yes Knee Goniometric Range of Motion Knee Right Knee ROM WFL No Left Knee ROM WFL Yes Knee ROM Limitations Knee ROM Limitations Soft Tissue Tightness,Swelling PT-OP-N Lymphedema Start: 03/04/23 08:09 Freq: Status: Active Protocol: Document 03/12/23 10:25 SAK (Rec: 03/12/23 12:03 [facility] [id number]) Lymphedema Measurements Lower Extremity Circumference Measurements Right MT Heads 23.3 cm Mid-foot 23.8 cm Medial Malleolus 26.9 cm 10 cm From Medial Malleolus 23 cm 20 cm From Medial Malleolus 32 cm 30 cm From Medial Malleolus 40.5 cm 40 cm From Medial Malleolus 41.6 cm 50 cm From Medial Malleolus 51 cm 60 cm From Medial Malleolus 54.2 cm Knee Joint 41.6 cm Left MT Heads 23.5 cm Mid-foot 23.5 cm Medial Malleolus 28.1 cm 10 cm From Medial Malleolus 23 cm 20 cm From Medial Malleolus 31.3 cm 30 cm From Medial Malleolus 39.7 cm 40 cm From Medial Malleolus 40.5 cm 50 cm From Medial Malleolus 46.9 cm 60 cm From Medial Malleolus 49.5 cm 70 cm From Medial Malleolus 56.1 cm Knee Joint 44.8 cm - measured from heel PT-OP-Q Treatments Start: 03/04/23 08:09 Freq: Status: Active Protocol: Document 03/12/23 10:25 [facility] (Rec: 03/12/23 12:03 [facility] [id number]) Cardio Equipment Recumbent Stepper (Sci-Fit) Duration (Minutes) 5 Resistance 1 Seat Position 9 Other to facilitate lymphatic flow following compression bandaging right LE. Lymphedema Treatment Manual Lymphatic Drainage Comments lotion applied, no MLD due to patient reports of being put on Lasix due to SOB. Has been referred to pulmonary clinic due to possible pulmonary edema. Compression Garment Assessment Compression Garment Assessment Details Patient current knee high compression being worn good fit but appear 8-15 mm Hg, discussed that patient will need higher compression level stockings. Patient Education Lymphedema Pathology reviewed Lymphedema Precautions reviewed Compression Garments shown options online Self Manual Lymphatic Drainage hold for now Sequential Lymphedema Exercises reviewed PT-OP-T Assessment and Plan Start: 03/04/23 08:09 Freq: Status: Active Protocol: Document 03/12/23 10:25 [facility] (Rec: 03/12/23 12:03 [facility] [id number]) Physical Therapy Assessment Impairments Impairments Activity Tolerance,Edema,Soft Tissue Mobility Goals One Impairment lymphedema swapnil LE's right greater than left Short Term Goal (STG) Patient will be instructed in all aspects of lymphedema self -care to include skin care, self-massage, self-bandaging, and lymphedema exercises. STG Duration 04/04/23 Cinema Operator Goal (LTG) Decrease patient?s lymphedema to a stable level (no increase or decrease greater than 1 cm over the course of 1 week), patient to be independent with all aspects of self care for lymphedema, and will obtain appropriate compression garment for lymphedema management in the home. LTG Duration 06/04/23 Three Impairment limited walking due to LE lymphedema Impairment AYESHA score is 18 (1-19% impaired, score 1-19). Pt goal is to get the back pain resolvedyoga), and control pain w/o medications. [facility] Goal (LTG) Reduce lymphedema sufficient to allow patient to tolerate usual walks for health and function and in the community. LTG Duration 06/04/23 Two Impairment tissue fibrosis in LE's right greater than left Impairment Across LBP ~ level of L3-L4. [facility] Goal (LTG) Decrease soft tissue fibrosis bilateral LE's by at least 50% for improved lymphatic flow and LE function LTG Duration 06/04/23 Assessment Summary Assessment Patient measurements stable except small decrease mid to upper calves swapnil; patient current compression stockings not adequate compression level and needs thigh high compression for best edema management, Lasix not effective for dec LE lymphedemaedema. No MLD due to patient being seen for SOB, pulmonary issues vs CHF. Bandaging applied right LE toes to groin, assisted patient with applying right knee high compression stocking using donning aid (cage). Also shown [place] [employer] donning aid as potential assist for donning stockings. Given video information for self-education. Physical Therapy Plan Frequency and Duration Frequency of Treatment 20 visists Duration of treatment (weeks) 12 Plan of Care Start Date 03/04/23 Plan of Care End Date 06/04/23 Therapeutic Interventions Therapeutic Interventions Home Exercise Program, Lymphedema Management,Manual Therapy,Patient/Caregiver Education,Self-Care/Home Management,Soft Tissue Mobilization,Therapeutic Exercises Modalities Vasopneumatic Devices Next Visit Focus/Plan Next Note Type Treatment Note Next Visit Plan Continue lymphedema management with precautions for MLD at this time due to SOB, history COPD with poss CHF and pulmonary edema. Patient was advised to remove compression bandages if any SOB worsens. If jessica ok may try bandaging swapnil LE's.
--- NOTE | 2023-03-24 09:36 | PT.OTN ---
Current Diagnoses Lymphedema, not elsewhere classified (03/24/23) Soft tissue disorder, unspecified (03/24/23) Difficulty in walking, not elsewhere classified (03/24/23) Physical Therapy Treatment Note PT-OP-A Visit Information Start: 03/04/23 08:09 Freq: Status: Active Protocol: Document 03/24/23 07:57 SAK (Rec: 03/24/23 08:48 SAK [id number]) Out-Patient Physical Therapy Visit Information Visit Information Visit Type Treatment Note Visit Start Time 08:00 Visit Stop Time 09:17 Total Visit Minutes 67 Visit Number 3 Evaluation Information Evaluation Date 03/04/23 Precautions Precautions SOB, possible pulmonary edema PT-OP-B Current Condition Start: 03/04/23 08:09 Freq: Status: Active Protocol: Document 03/24/23 07:57 SAK (Rec: 03/24/23 09:30 SAK [id number]) Current Condition History of Current Condition Onset Date October 2022 Current Complaints LE swelling History of Current Condition Sep 26 2022 fell in house while going to answer the door ; got legs tangled in pillow that had been supporting her legs on recliner. Fell onto inside of left knee, was able to stand up. Bruised; turned purple with hematoma and swelled, couldn't bend L knee x 3 weeks. Swelling left LE has continued since that time. Since November right LE started to swell. Legs got red and scaley in December , diagnosed with cellulitis, put on antibiotics, resolved, then cellulitis returned. Hasn't worn compression socks for a long time due to compression fractures, states thinks they were relatively low compression but still hard to don. Goes for walks 30-45 minutes using walker. Has son living with her right now and can assist as needed. Patient agreeable to having him come in for next PT visit for training. Treatment Goals Patient/Caregiver Goals decrease her leg lymphedema, be able to self-manage Personal Factors Other Personal Factors That May Effect Abdominal ascites Therapy/Recovery Aortic valve stenosis () COPD exacerbation Foot deformities, congenital Cellulitis Hyperlipidemia Osteoporosis (~1989) T7 vertebral fracture T9 vertebral fracture Urinary incontinence History of aortic valve replacement with bioprosthetic valve (2015) History of carpal tunnel release History of tonsillectomy Normal colonoscopy (2005) Personal history of tricuspid valve disease PT-OP-C Subjective Start: 03/04/23 08:09 Freq: Status: Active Protocol: Document 03/24/23 07:57 SAK (Rec: 03/24/23 08:48 SAK [id number]) OP-PT Subjective Patient Comments Patient Comments Sees reel repairer next week. Son has been bandaging patient right per video, wearing knee high compression on left, not sure of compression level. Feels bandaging helpful. PT-OP-F Manual Assessment Start: 03/04/23 08:09 Freq: Status: Active Protocol: Document 03/04/23 10:34 SAK (Rec: 03/04/23 16:23 [facility] [id number]) Manual Assessments Soft Tissue Assessment Soft Tissue Mobility Assessment palpable LE fibrosis right greater than left, thickest posterior aspect right knee PT-OP-G Mobility & Gait Start: 03/04/23 08:09 Freq: Status: Active Protocol: Document 03/04/23 10:34 SAK (Rec: 03/04/23 16:23 [facility] [id number]) OP Mobility Evaluation Bed Mobility Rolling SBA Supine to and from Sit SBA Transfers Sit to Stand SBA OP Gait Assessment Gait Gait Assistance Required: Independent Assistive Devices Assistive Device 4 Wheeled Walker Orthotic/Prosthetic Devices or Brace: No Gait Deviations General Gait Pattern Decreased Stride Length, Decreased Feet Clearance, Narrow Based Gait Comments Gait Comments heaviness of legs PT-OP-J Posture/Palpation/Skin Start: 03/04/23 08:09 Freq: Status: Active Protocol: Document 03/04/23 10:34 SAK (Rec: 03/04/23 16:23 [facility] [id number]) Skin Assessment Edema Assessment swapnil LE's Edema Appearance Dimpled,Discolored,Taut Subjective Edema Description Itching Comments right greater than left. Other Assessments Skin Assessment Comments hyperkeratosis right greater than left swapnil LEs PT-OP-K Range of Motion Start: 03/04/23 08:09 Freq: Status: Active Protocol: Document 03/04/23 10:34 SAK (Rec: 03/04/23 16:23 [facility] [id number]) Hip Goniometric Range of Motion Hip swapnil Hip ROM WFL Yes Knee Goniometric Range of Motion Knee Right Knee ROM WFL No Left Knee ROM WFL Yes Knee ROM Limitations Knee ROM Limitations Soft Tissue Tightness,Swelling PT-OP-N Lymphedema Start: 03/04/23 08:09 Freq: Status: Active Protocol: Document 03/24/23 07:57 [facility] (Rec: 03/24/23 08:48 [facility] [id number]) Lymphedema Measurements Lower Extremity Circumference Measurements Right MT Heads 23.3 cm Mid-foot 23.2 cm Medial Malleolus 25.9 cm 10 cm From Medial Malleolus 22.4 cm 20 cm From Medial Malleolus 31.3 cm 30 cm From Medial Malleolus 37.8 cm 40 cm From Medial Malleolus 37 cm 50 cm From Medial Malleolus 45.3 cm 60 cm From Medial Malleolus 54.3 cm 70 cm From Medial Malleolus 59 cm Knee Joint 40.2 cm Left MT Heads 23.5 cm Mid-foot 23.5 cm Medial Malleolus 28 cm 10 cm From Medial Malleolus 22.1 cm 20 cm From Medial Malleolus 30.7 cm 30 cm From Medial Malleolus 37.9 cm 40 cm From Medial Malleolus 39.8 cm 50 cm From Medial Malleolus 46.5 cm 60 cm From Medial Malleolus 53.1 cm 70 cm From Medial Malleolus 56.4 cm Knee Joint 46.5 cm PT-OP-Q Treatments Start: 03/04/23 08:09 Freq: Status: Active Protocol: Document 03/24/23 07:57 [facility] (Rec: 03/24/23 09:30 [facility] [id number]) Cardio Equipment Recumbent Stepper (Sci-Fit) Duration (Minutes) 5 Resistance 1 Seat Position 9 Other to facilitate lymphatic flow following compression bandaging right LE. Lymphedema Treatment Manual Lymphatic Drainage Comments lotion applied, no MLD due to patient reports of being put on Lasix due to SOB. Has been referred to pulmonary clinic due to possible pulmonary edema. Lymphedema Wrapping Body Location left LE Materials Size F Tricofix, Artiflex, Comprilan MTP to upper groin. Compression Garment Assessment Compression Garment Assessment Details Patient current knee high compression being worn good fit but appear 8-15 mm Hg, discussed that patient will need higher compression level stockings. Patient Education Compression Garments further discussion of options and sizing, compression level Other Other circumferential measurements taken swapnil LE's PT-OP-T Assessment and Plan Start: 03/04/23 08:09 Freq: Status: Active Protocol: Document 03/24/23 07:57 [facility] (Rec: 03/24/23 08:48 [facility] [id number]) Physical Therapy Assessment Impairments Impairments Activity Tolerance,Edema,Soft Tissue Mobility Goals One Impairment lymphedema swapnil LE's right greater than left Short Term Goal (STG) Patient will be instructed in all aspects of lymphedema self -care to include skin care, self-massage, self-bandaging, and lymphedema exercises. STG Duration 04/04/23 Snf Goal (LTG) Decrease patient?s lymphedema to a stable level (no increase or decrease greater than 1 cm over the course of 1 week), patient to be independent with all aspects of self care for lymphedema, and will obtain appropriate compression garment for lymphedema management in the home. LTG Duration 06/04/23 Three Impairment limited walking due to LE lymphedema Impairment AYESHA score is 18 (1-19% impaired, score 1-19). Pt goal is to get the back pain resolvedyoga), and control pain w/o medications. Web Content Director Goal (LTG) Reduce lymphedema sufficient to allow patient to tolerate usual walks for health and function and in the community. LTG Duration 06/04/23 Two Impairment tissue fibrosis in LE's right greater than left Impairment Across LBP ~ level of L3-L4. [employer] Goal (LTG) Decrease soft tissue fibrosis bilateral LE's by at least 50% for improved lymphatic flow and LE function LTG Duration 06/04/23 Assessment Summary Assessment Patient son doing excellent job with compression bandaging , swapnil dec in circumferential measurements. Circumferential measurements indicate patient would fit in off the shelf compression garment swapnil LE's Jobst M or Juzo II. Patient to order either online or make appointment at [facility]. Physical Therapy Plan Frequency and Duration Frequency of Treatment 20 visists Duration of treatment (weeks) 12 Plan of Care Start Date 03/04/23 Plan of Care End Date 06/04/23 Therapeutic Interventions Therapeutic Interventions Home Exercise Program, Lymphedema Management,Manual Therapy,Patient/Caregiver Education,Self-Care/Home Management,Soft Tissue Mobilization,Therapeutic Exercises Modalities Vasopneumatic Devices Next Visit Focus/Plan Next Note Type Treatment Note Next Visit Plan Continue lymphedema management with precautions for MLD at this time due to SOB, history COPD with poss CHF and pulmonary edema. Patient was advised to remove compression bandages if any SOB worsens. If jessica ok may try bandaging swapnil LE's.
--- NOTE | 2023-03-30 08:58 | PT.OTN ---
Current Diagnoses Lymphedema, not elsewhere classified (03/30/23) Soft tissue disorder, unspecified (03/30/23) Difficulty in walking, not elsewhere classified (03/30/23) Physical Therapy Treatment Note PT-OP-A Visit Information Start: 03/04/23 08:09 Freq: Status: Active Protocol: Document 03/30/23 07:54 SAK (Rec: 03/30/23 08:57 [facility]AK [id number]) Out-Patient Physical Therapy Visit Information Visit Information Visit Type Treatment Note Visit Start Time 08:00 Visit Number 4 Evaluation Information Evaluation Date 03/04/23 Precautions Precautions SOB, possible pulmonary edema PT-OP-B Current Condition Start: 03/04/23 08:09 Freq: Status: Active Protocol: Document 03/30/23 07:54 SAK (Rec: 03/30/23 08:57 [facility]AK [id number]) Current Condition History of Current Condition Onset Date October 2022 Current Complaints LE swelling History of Current Condition Sep 26 2022 fell in house while going to answer the door ; got legs tangled in pillow that had been supporting her legs on recliner. Fell onto inside of left knee, was able to stand up. Bruised; turned purple with hematoma and swelled, couldn't bend L knee x 3 weeks. Swelling left LE has continued since that time. Since November right LE started to swell. Legs got red and scaley in December , diagnosed with cellulitis, put on antibiotics, resolved, then cellulitis returned. Hasn't worn compression socks for a long time due to compression fractures, states thinks they were relatively low compression but still hard to don. Goes for walks 30-45 minutes using walker. Has son living with her right now and can assist as needed. Patient agreeable to having him come in for next PT visit for training. Treatment Goals Patient/Caregiver Goals decrease her leg lymphedema, be able to self-manage Personal Factors Other Personal Factors That May Effect Abdominal ascites Therapy/Recovery Aortic valve stenosis () COPD exacerbation Foot deformities, congenital Cellulitis Hyperlipidemia Osteoporosis (~1989) T7 vertebral fracture T9 vertebral fracture Urinary incontinence History of aortic valve replacement with bioprosthetic valve (2015) History of carpal tunnel release History of tonsillectomy Normal colonoscopy (2005) Personal history of tricuspid valve disease PT-OP-C Subjective Start: 03/04/23 08:09 Freq: Status: Active Protocol: Document 03/30/23 07:54 SAK (Rec: 03/30/23 08:57 SAK [id number]) OP-PT Subjective Patient Comments Patient Comments Went to see Loren at [facility] for compression stockings; swapnil thigh high have been ordered. PT-OP-F Manual Assessment Start: 03/04/23 08:09 Freq: Status: Active Protocol: Document 03/04/23 10:34 SAK (Rec: 03/04/23 16:23 [facility] [id number]) Manual Assessments Soft Tissue Assessment Soft Tissue Mobility Assessment palpable LE fibrosis right greater than left, thickest posterior aspect right knee PT-OP-G Mobility & Gait Start: 03/04/23 08:09 Freq: Status: Active Protocol: Document 03/04/23 10:34 SAK (Rec: 03/04/23 16:23 [facility] [id number]) OP Mobility Evaluation Bed Mobility Rolling SBA Supine to and from Sit SBA Transfers Sit to Stand SBA OP Gait Assessment Gait Gait Assistance Required: Independent Assistive Devices Assistive Device 4 Wheeled Walker Orthotic/Prosthetic Devices or Brace: No Gait Deviations General Gait Pattern Decreased Stride Length, Decreased Feet Clearance, Narrow Based Gait Comments Gait Comments heaviness of legs PT-OP-J Posture/Palpation/Skin Start: 03/04/23 08:09 Freq: Status: Active Protocol: Document 03/04/23 10:34 SAK (Rec: 03/04/23 16:23 [facility] [id number]) Skin Assessment Edema Assessment sawpnil LE's Edema Appearance Dimpled,Discolored,Taut Subjective Edema Description Itching Comments right greater than left. Other Assessments Skin Assessment Comments hyperkeratosis right greater than left swapnil LEs PT-OP-K Range of Motion Start: 03/04/23 08:09 Freq: Status: Active Protocol: Document 03/04/23 10:34 SAK (Rec: 03/04/23 16:23 [facility] [id number]) Hip Goniometric Range of Motion Hip swapnil Hip ROM WFL Yes Knee Goniometric Range of Motion Knee Right Knee ROM WFL No Left Knee ROM WFL Yes Knee ROM Limitations Knee ROM Limitations Soft Tissue Tightness,Swelling PT-OP-N Lymphedema Start: 03/04/23 08:09 Freq: Status: Active Protocol: Document 03/30/23 07:54 SAK (Rec: 03/30/23 08:57 [facility] [id number]) Lymphedema Measurements Lower Extremity Circumference Measurements Right MT Heads 22.3 cm Mid-foot 23.7 cm Medial Malleolus 26.7 cm 10 cm From Medial Malleolus 23 cm 20 cm From Medial Malleolus 30.5 cm 30 cm From Medial Malleolus 37 cm 40 cm From Medial Malleolus 36.8 cm 50 cm From Medial Malleolus 45 cm 60 cm From Medial Malleolus 50.4 cm 70 cm From Medial Malleolus 56 cm Knee Joint 41.8 cm Left MT Heads 23.2 cm Mid-foot 22.7 cm Medial Malleolus 27.2 cm 10 cm From Medial Malleolus 22.4 cm 20 cm From Medial Malleolus 30.5 cm 30 cm From Medial Malleolus 36.1 cm 40 cm From Medial Malleolus 39.6 cm 50 cm From Medial Malleolus 46.3 cm 60 cm From Medial Malleolus 52.2 cm 70 cm From Medial Malleolus 52.2 cm Knee Joint 44.5 cm PT-OP-Q Treatments Start: 03/04/23 08:09 Freq: Status: Active Protocol: Document 03/30/23 07:54 [facility] (Rec: 03/30/23 08:57 [facility] [id number]) Cardio Equipment Recumbent Stepper (Sci-Fit) Duration (Minutes) 5 Resistance 1 Seat Position 9 Other to facilitate lymphatic flow following compression bandaging right LE. Lymphedema Treatment Manual Lymphatic Drainage Comments lotion applied, no MLD due to patient reports of being put on Lasix due to SOB. Has been referred to pulmonary clinic due to possible pulmonary edema. Lymphedema Wrapping Body Location left LE Materials Size F Tricofix, Artiflex, Comprilan MTP to upper groin. Compression Garment Assessment Compression Garment Assessment Details Has been ordered. Patient Education Compression Garments Have been ordered Other Other circumferential measurements taken swapnil LE's PT-OP-T Assessment and Plan Start: 03/04/23 08:09 Freq: Status: Active Protocol: Document 03/30/23 07:54 [facility] (Rec: 03/30/23 08:57 [facility] [id number]) Physical Therapy Assessment Impairments Impairments Activity Tolerance,Edema,Soft Tissue Mobility Goals One Impairment lymphedema swapnil LE's right greater than left Short Term Goal (STG) Patient will be instructed in all aspects of lymphedema self -care to include skin care, self-massage, self-bandaging, and lymphedema exercises. STG Duration 04/04/23 Half-Way Goal (LTG) Decrease patient?s lymphedema to a stable level (no increase or decrease greater than 1 cm over the course of 1 week), patient to be independent with all aspects of self care for lymphedema, and will obtain appropriate compression garment for lymphedema management in the home. LTG Duration 06/04/23 Three Impairment limited walking due to LE lymphedema Impairment AYESHA score is 18 (1-19% impaired, score 1-19). Pt goal is to get the back pain resolvedyoga), and control pain w/o medications. Business Economist Goal (LTG) Reduce lymphedema sufficient to allow patient to tolerate usual walks for health and function and in the community. LTG Duration 06/04/23 Two Impairment tissue fibrosis in LE's right greater than left Impairment Across LBP ~ level of L3-L4. Business Economist Goal (LTG) Decrease soft tissue fibrosis bilateral LE's by at least 50% for improved lymphatic flow and LE function LTG Duration 06/04/23 Assessment Summary Assessment Circumferential measurements continue to decrease. Good compliance at home. Compression stockings have been ordered. Physical Therapy Plan Frequency and Duration Frequency of Treatment 20 visists Duration of treatment (weeks) 12 Plan of Care Start Date 03/04/23 Plan of Care End Date 06/04/23 Therapeutic Interventions Therapeutic Interventions Home Exercise Program, Lymphedema Management,Manual Therapy,Patient/Caregiver Education,Self-Care/Home Management,Soft Tissue Mobilization,Therapeutic Exercises Modalities Vasopneumatic Devices Next Visit Focus/Plan Next Note Type Treatment Note Next Visit Plan ASsess fit of compression stockings when they arrive, determine any further need for PT. Anticipate when patient receives garments and is able to don and doff will be discharged from PT.
--- NOTE | 2023-04-01 16:34 | PT.OTN ---
Current Diagnoses Lymphedema, not elsewhere classified (04/01/23) Soft tissue disorder, unspecified (04/01/23) Difficulty in walking, not elsewhere classified (04/01/23) Physical Therapy Treatment Note PT-OP-A Visit Information Start: 03/04/23 08:09 Freq: Status: Active Protocol: Document 04/01/23 10:33 SAK (Rec: 04/01/23 10:46 [facility] [id number]) Out-Patient Physical Therapy Visit Information Visit Information Visit Type Treatment Note Visit Start Time 10:34 Visit Stop Time 12:00 Total Visit Minutes 86 Visit Number 5 Evaluation Information Evaluation Date 03/04/23 Precautions Precautions SOB, possible pulmonary edema Abdominal ascites Aortic valve stenosis () COPD exacerbation Foot deformities, congenital Cellulitis Hyperlipidemia Osteoporosis (~1989) T7 vertebral fracture T9 vertebral fracture Urinary incontinence History of aortic valve replacement with PT-OP-B Current Condition Start: 03/04/23 08:09 Freq: Status: Active Protocol: Document 04/01/23 10:33 SAK (Rec: 04/01/23 10:46 [facility] [id number]) Current Condition History of Current Condition Onset Date October 2022 Current Complaints LE swelling History of Current Condition Sep 26 2022 fell in house while going to answer the door ; got legs tangled in pillow that had been supporting her legs on recliner. Fell onto inside of left knee, was able to stand up. Bruised; turned purple with hematoma and swelled, couldn't bend L knee x 3 weeks. Swelling left LE has continued since that time. Since November right LE started to swell. Legs got red and scaley in December , diagnosed with cellulitis, put on antibiotics, resolved, then cellulitis returned. Hasn't worn compression socks for a long time due to compression fractures, states thinks they were relatively low compression but still hard to don. Goes for walks 30-45 minutes using walker. Has son living with her right now and can assist as needed. Patient agreeable to having him come in for next PT visit for training. Treatment Goals Patient/Caregiver Goals decrease her leg lymphedema, be able to self-manage Personal Factors Other Personal Factors That May Effect Abdominal ascites Therapy/Recovery Aortic valve stenosis () COPD exacerbation Foot deformities, congenital Cellulitis Hyperlipidemia Osteoporosis (~1989) T7 vertebral fracture T9 vertebral fracture Urinary incontinence History of aortic valve replacement with bioprosthetic valve (2016) History of carpal tunnel release History of tonsillectomy Normal colonoscopy (2005) Personal history of tricuspid valve disease PT-OP-C Subjective Start: 03/04/23 08:09 Freq: Status: Active Protocol: Document 04/01/23 10:33 SAK (Rec: 04/01/23 10:46 SAK [id number]) OP-PT Subjective Patient Comments Patient Comments Hasn't gotten compression gaments yet, should come soon. Reports saw public weigher this am, stated her heart and lungs are stable. Encouraged continued exercise, walking as tolerated. PT-OP-F Manual Assessment Start: 03/04/23 08:09 Freq: Status: Active Protocol: Document 03/04/23 10:34 SAK (Rec: 03/04/23 16:23 [facility] [id number]) Manual Assessments Soft Tissue Assessment Soft Tissue Mobility Assessment palpable LE fibrosis right greater than left, thickest posterior aspect right knee PT-OP-G Mobility & Gait Start: 03/04/23 08:09 Freq: Status: Active Protocol: Document 03/04/23 10:34 SAK (Rec: 03/04/23 16:23 [facility] [id number]) OP Mobility Evaluation Bed Mobility Rolling SBA Supine to and from Sit SBA Transfers Sit to Stand SBA OP Gait Assessment Gait Gait Assistance Required: Independent Assistive Devices Assistive Device 4 Wheeled Walker Orthotic/Prosthetic Devices or Brace: No Gait Deviations General Gait Pattern Decreased Stride Length, Decreased Feet Clearance, Narrow Based Gait Comments Gait Comments heaviness of legs PT-OP-J Posture/Palpation/Skin Start: 03/04/23 08:09 Freq: Status: Active Protocol: Document 03/04/23 10:34 SAK (Rec: 03/04/23 16:23 [facility] [id number]) Skin Assessment Edema Assessment swapnil LE's Edema Appearance Dimpled,Discolored,Taut Subjective Edema Description Itching Comments right greater than left. Other Assessments Skin Assessment Comments hyperkeratosis right greater than left swapnil LEs PT-OP-K Range of Motion Start: 03/04/23 08:09 Freq: Status: Active Protocol: Document 03/04/23 10:34 SAK (Rec: 03/04/23 16:23 [facility] [id number]) Hip Goniometric Range of Motion Hip swapnil Hip ROM WFL Yes Knee Goniometric Range of Motion Knee Right Knee ROM WFL No Left Knee ROM WFL Yes Knee ROM Limitations Knee ROM Limitations Soft Tissue Tightness,Swelling PT-OP-N Lymphedema Start: 03/04/23 08:09 Freq: Status: Active Protocol: Document 03/30/23 07:54 [facility] (Rec: 03/30/23 08:57 [facility] [id number]) Lymphedema Measurements Lower Extremity Circumference Measurements Right MT Heads 22.3 cm Mid-foot 23.7 cm Medial Malleolus 26.7 cm 10 cm From Medial Malleolus 23 cm 20 cm From Medial Malleolus 30.5 cm 30 cm From Medial Malleolus 37 cm 40 cm From Medial Malleolus 36.8 cm 50 cm From Medial Malleolus 45 cm 60 cm From Medial Malleolus 50.4 cm 70 cm From Medial Malleolus 56 cm Knee Joint 41.8 cm Left MT Heads 23.2 cm Mid-foot 22.7 cm Medial Malleolus 27.2 cm 10 cm From Medial Malleolus 22.4 cm 20 cm From Medial Malleolus 30.5 cm 30 cm From Medial Malleolus 36.1 cm 40 cm From Medial Malleolus 39.6 cm 50 cm From Medial Malleolus 46.3 cm 60 cm From Medial Malleolus 52.2 cm 70 cm From Medial Malleolus 52.2 cm Knee Joint 44.5 cm PT-OP-Q Treatments Start: 03/04/23 08:09 Freq: Status: Active Protocol: Document 04/01/23 10:33 SAK (Rec: 04/01/23 16:34 [facility] [id number]) Cardio Equipment Recumbent Stepper (Sci-Fit) Duration (Minutes) 5 Resistance 1 Seat Position 9 Other to facilitate lymphatic flow following compression bandaging right LE. Lymphedema Treatment Manual Lymphatic Drainage Location for swapnil LE Lymphedema Duration 40 Comments lotion applied, Lymphedema Wrapping Body Location swapnil LE's Materials Size F Tricofix, Artiflex, Comprilan MTP to upper groin. Compression Garment Assessment Compression Garment Assessment Details Has been ordered. Patient Education Compression Garments Have been ordered PT-OP-T Assessment and Plan Start: 03/04/23 08:09 Freq: Status: Active Protocol: Document 04/01/23 10:33 SAK (Rec: 04/01/23 10:46 [facility] [id number]) Physical Therapy Assessment Impairments Impairments Activity Tolerance,Edema,Soft Tissue Mobility Goals One Impairment lymphedema swapnil LE's right greater than left Short Term Goal (STG) Patient will be instructed in all aspects of lymphedema self -care to include skin care, self-massage, self-bandaging, and lymphedema exercises. STG Duration 04/04/23 [facility] Goal (LTG) Decrease patient?s lymphedema to a stable level (no increase or decrease greater than 1 cm over the course of 1 week), patient to be independent with all aspects of self care for lymphedema, and will obtain appropriate compression garment for lymphedema management in the home. LTG Duration 06/04/23 Three Impairment limited walking due to LE lymphedema Impairment AYESHA score is 18 (1-19% impaired, score 1-19). Pt goal is to get the back pain resolvedyoga), and control pain w/o medications. [facility] Goal (LTG) Reduce lymphedema sufficient to allow patient to tolerate usual walks for health and function and in the community. LTG Duration 06/04/23 Two Impairment tissue fibrosis in LE's right greater than left Impairment Across LBP ~ level of L3-L4. Needle Felt Making Machine Operator Goal (LTG) Decrease soft tissue fibrosis bilateral LE's by at least 50% for improved lymphatic flow and LE function LTG Duration 06/04/23 Assessment Summary Assessment Bandaged swapnil LE's and inc MLD with STM to tissue fibrosis swapnil LE's now cleared by public weigher for acute issue, advised pt to report any inc symptoms of SOB. Continues good compliance to self-care in the home with son bandaging LE, now will bandage both if tolerates today's bandaging well. Physical Therapy Plan Frequency and Duration Frequency of Treatment 20 visists Duration of treatment (weeks) 12 Plan of Care Start Date 03/04/23 Plan of Care End Date 06/04/23 Therapeutic Interventions Therapeutic Interventions Home Exercise Program, Lymphedema Management,Manual Therapy,Patient/Caregiver Education,Self-Care/Home Management,Soft Tissue Mobilization,Therapeutic Exercises Modalities Vasopneumatic Devices Next Visit Focus/Plan Next Note Type Treatment Note Next Visit Plan Continue lymphedema management . Assess response to swapnil bandaging. Assess fit of compression stockings if receives.
--- NOTE | 2023-04-06 07:57 | PT-OP ANOTE ---
cancelled due to schedule conflict
--- NOTE | 2023-04-08 09:54 | PT.OTN ---
Current Diagnoses Lymphedema, not elsewhere classified (04/08/23) Soft tissue disorder, unspecified (04/08/23) Difficulty in walking, not elsewhere classified (04/08/23) Physical Therapy Treatment Note PT-OP-A Visit Information Start: 03/04/23 08:09 Freq: Status: Active Protocol: Document 04/08/23 08:45 SAK (Rec: 04/08/23 09:54 SAK [id number]) Out-Patient Physical Therapy Visit Information Visit Information Visit Type Treatment Note Visit Start Time 08:45 Visit Stop Time 09:40 Total Visit Minutes 55 Visit Number 6 PT-OP-B Current Condition Start: 03/04/23 08:09 Freq: Status: Active Protocol: Document 04/01/23 10:33 SAK (Rec: 04/01/23 10:46 SAK [id number]) Current Condition History of Current Condition Onset Date October 2022 Current Complaints LE swelling History of Current Condition Sep 26 2022 fell in house while going to answer the door ; got legs tangled in pillow that had been supporting her legs on recliner. Fell onto inside of left knee, was able to stand up. Bruised; turned purple with hematoma and swelled, couldn't bend L knee x 3 weeks. Swelling left LE has continued since that time. Since November right LE started to swell. Legs got red and scaley in December , diagnosed with cellulitis, put on antibiotics, resolved, then cellulitis returned. Hasn't worn compression socks for a long time due to compression fractures, states thinks they were relatively low compression but still hard to don. Goes for walks 30-45 minutes using walker. Has son living with her right now and can assist as needed. Patient agreeable to having him come in for next PT visit for training. Treatment Goals Patient/Caregiver Goals decrease her leg lymphedema, be able to self-manage Personal Factors Other Personal Factors That May Effect Abdominal ascites Therapy/Recovery Aortic valve stenosis () COPD exacerbation Foot deformities, congenital Cellulitis Hyperlipidemia Osteoporosis (~1989) T7 vertebral fracture T9 vertebral fracture Urinary incontinence History of aortic valve replacement with bioprosthetic valve (2015) History of carpal tunnel release History of tonsillectomy Normal colonoscopy (2005) Personal history of tricuspid valve disease PT-OP-C Subjective Start: 03/04/23 08:09 Freq: Status: Active Protocol: Document 04/08/23 08:45 SAK (Rec: 04/08/23 09:54 [facility] [id number]) OP-PT Subjective Patient Comments Patient Comments Patient reports she got compression stockings, concerned that may be too short, having difficulty with donning. PT-OP-F Manual Assessment Start: 03/04/23 08:09 Freq: Status: Active Protocol: Document 03/04/23 10:34 SAK (Rec: 03/04/23 16:23 [facility] [id number]) Manual Assessments Soft Tissue Assessment Soft Tissue Mobility Assessment palpable LE fibrosis right greater than left, thickest posterior aspect right knee PT-OP-G Mobility & Gait Start: 03/04/23 08:09 Freq: Status: Active Protocol: Document 03/04/23 10:34 SAK (Rec: 03/04/23 16:23 [facility] [id number]) OP Mobility Evaluation Bed Mobility Rolling SBA Supine to and from Sit SBA Transfers Sit to Stand SBA OP Gait Assessment Gait Gait Assistance Required: Independent Assistive Devices Assistive Device 4 Wheeled Walker Orthotic/Prosthetic Devices or Brace: No Gait Deviations General Gait Pattern Decreased Stride Length, Decreased Feet Clearance, Narrow Based Gait Comments Gait Comments heaviness of legs PT-OP-J Posture/Palpation/Skin Start: 03/04/23 08:09 Freq: Status: Active Protocol: Document 03/04/23 10:34 SAK (Rec: 03/04/23 16:23 [facility] [id number]) Skin Assessment Edema Assessment swapnil LE's Edema Appearance Dimpled,Discolored,Taut Subjective Edema Description Itching Comments right greater than left. Other Assessments Skin Assessment Comments hyperkeratosis right greater than left swapnil LEs PT-OP-K Range of Motion Start: 03/04/23 08:09 Freq: Status: Active Protocol: Document 03/04/23 10:34 SAK (Rec: 03/04/23 16:23 [facility] [id number]) Hip Goniometric Range of Motion Hip swapnil Hip ROM WFL Yes Knee Goniometric Range of Motion Knee Right Knee ROM WFL No Left Knee ROM WFL Yes Knee ROM Limitations Knee ROM Limitations Soft Tissue Tightness,Swelling PT-OP-N Lymphedema Start: 03/04/23 08:09 Freq: Status: Active Protocol: Document 04/08/23 08:45 SAK (Rec: 04/08/23 09:54 [facility] [id number]) Lymphedema Measurements Lower Extremity Circumference Measurements Right - no measurements today due to training for donning compression stockings Left - no measurements today due to training for donning compression stockings PT-OP-Q Treatments Start: 03/04/23 08:09 Freq: Status: Active Protocol: Document 04/08/23 08:45 [facility] (Rec: 04/08/23 09:54 [facility] [id number]) Lymphedema Treatment Compression Garment Assessment Compression Garment Assessment Details Assisted patient in donning Jobst closed toe compression stockings 20-30 mm Hg compression level. Patient unable to do on own so far. Shown multiple donning aids with trials, patient preferred cage and will consider [employer] Magnide (no sample available for patient to try). Patient loaned cage until she is able to get one on her own. Min assist for donning with use of cage, patient son will assist until patient able to do on own. Advised that occasionally using lower compression level garment possible but would have to monitor for any worsening of edema. Also, length is good with her compression stockings , came to upper thigh, hadn't been donning that high. PT-OP-T Assessment and Plan Start: 03/04/23 08:09 Freq: Status: Active Protocol: Document 04/08/23 08:45 [facility] (Rec: 04/08/23 09:54 [facility] [id number]) Physical Therapy Assessment Goals One Impairment lymphedema swapnil LE's right greater than left Short Term Goal (STG) Patient will be instructed in all aspects of lymphedema self -care to include skin care, self-massage, self-bandaging, and lymphedema exercises. STG Duration 04/04/23 Skilled Nursing Goal (LTG) Decrease patient?s lymphedema to a stable level (no increase or decrease greater than 1 cm over the course of 1 week), patient to be independent with all aspects of self care for lymphedema, and will obtain appropriate compression garment for lymphedema management in the home. LTG Duration 06/04/23 Three Impairment limited walking due to LE lymphedema Impairment AYESHA score is 18 (1-19% impaired, score 1-19). Pt goal is to get the back pain resolvedyoga), and control pain w/o medications. Skilled Nursing Goal (LTG) Reduce lymphedema sufficient to allow patient to tolerate usual walks for health and function and in the community. LTG Duration 06/04/23 Two Impairment tissue fibrosis in LE's right greater than left Impairment Across LBP ~ level of L3-L4. Train Announcer Goal (LTG) Decrease soft tissue fibrosis bilateral LE's by at least 50% for improved lymphatic flow and LE function LTG Duration 06/04/23 Assessment Summary Assessment Good fit of patient compression stockings, but difficulty with donning. After extensive education on donning options patient preferred donning cage and plans to purchase and consider [employer]ide (no sample to show patient, but shown video) for donning options. Discussed POC and at this time plan 1 further visit to assure safety and independence with donning and doffing compression stockings with concern for patient spinal health, encouraging as little bending forward as possible. Physical Therapy Plan Frequency and Duration Frequency of Treatment 20 visists Duration of treatment (weeks) 12 Plan of Care Start Date 03/04/23 Plan of Care End Date 06/04/23 Therapeutic Interventions Therapeutic Interventions Home Exercise Program, Lymphedema Management,Manual Therapy,Patient/Caregiver Education,Self-Care/Home Management,Soft Tissue Mobilization,Therapeutic Exercises Modalities Vasopneumatic Devices Next Visit Focus/Plan Next Note Type Treatment Note Next Visit Plan Assure patient able to don and doff compression stockings safely and independently. Problem solve any further lymphedema issues.
--- NOTE | 2023-04-27 10:17 | PT.OTN ---
Current Diagnoses Lymphedema, not elsewhere classified (04/27/23) Soft tissue disorder, unspecified (04/27/23) Difficulty in walking, not elsewhere classified (04/27/23) Physical Therapy Treatment Note PT-OP-A Visit Information Start: 03/04/23 08:09 Freq: Status: Active Protocol: Document 04/27/23 09:26 SAK (Rec: 04/27/23 10:17 SAK [id number]) Out-Patient Physical Therapy Visit Information Visit Information Visit Type Treatment Note Visit Start Time 09:27 Visit Stop Time 10:13 Total Visit Minutes 40 Visit Number 7 PT-OP-B Current Condition Start: 03/04/23 08:09 Freq: Status: Active Protocol: Document 04/01/23 10:33 SAK (Rec: 04/01/23 10:46 SAK [id number]) Current Condition History of Current Condition Onset Date October 2022 Current Complaints LE swelling History of Current Condition Sep 26 2022 fell in house while going to answer the door ; got legs tangled in pillow that had been supporting her legs on recliner. Fell onto inside of left knee, was able to stand up. Bruised; turned purple with hematoma and swelled, couldn't bend L knee x 3 weeks. Swelling left LE has continued since that time. Since November right LE started to swell. Legs got red and scaley in December , diagnosed with cellulitis, put on antibiotics, resolved, then cellulitis returned. Hasn't worn compression socks for a long time due to compression fractures, states thinks they were relatively low compression but still hard to don. Goes for walks 30-45 minutes using walker. Has son living with her right now and can assist as needed. Patient agreeable to having him come in for next PT visit for training. Treatment Goals Patient/Caregiver Goals decrease her leg lymphedema, be able to self-manage Personal Factors Other Personal Factors That May Effect Abdominal ascites Therapy/Recovery Aortic valve stenosis () COPD exacerbation Foot deformities, congenital Cellulitis Hyperlipidemia Osteoporosis (~1989) T7 vertebral fracture T9 vertebral fracture Urinary incontinence History of aortic valve replacement with bioprosthetic valve (2015) History of carpal tunnel release History of tonsillectomy Normal colonoscopy (2005) Personal history of tricuspid valve disease PT-OP-C Subjective Start: 03/04/23 08:09 Freq: Status: Active Protocol: Document 04/27/23 09:26 SAK (Rec: 04/27/23 10:17 [facility] [id number]) OP-PT Subjective Patient Comments Patient Comments Reports her legs are doing well. Son still needs to help her don her stockings, now wearing 15-20 mm Hg petite PT-OP-F Manual Assessment Start: 03/04/23 08:09 Freq: Status: Active Protocol: Document 03/04/23 10:34 SAK (Rec: 03/04/23 16:23 [facility] [id number]) Manual Assessments Soft Tissue Assessment Soft Tissue Mobility Assessment palpable LE fibrosis right greater than left, thickest posterior aspect right knee PT-OP-G Mobility & Gait Start: 03/04/23 08:09 Freq: Status: Active Protocol: Document 03/04/23 10:34 SAK (Rec: 03/04/23 16:23 [facility] [id number]) OP Mobility Evaluation Bed Mobility Rolling SBA Supine to and from Sit SBA Transfers Sit to Stand SBA OP Gait Assessment Gait Gait Assistance Required: Independent Assistive Devices Assistive Device 4 Wheeled Walker Orthotic/Prosthetic Devices or Brace: No Gait Deviations General Gait Pattern Decreased Stride Length, Decreased Feet Clearance, Narrow Based Gait Comments Gait Comments heaviness of legs PT-OP-J Posture/Palpation/Skin Start: 03/04/23 08:09 Freq: Status: Active Protocol: Document 03/04/23 10:34 SAK (Rec: 03/04/23 16:23 [facility] [id number]) Skin Assessment Edema Assessment swapnil LE's Edema Appearance Dimpled,Discolored,Taut Subjective Edema Description Itching Comments right greater than left. Other Assessments Skin Assessment Comments hyperkeratosis right greater than left swapnil LEs PT-OP-K Range of Motion Start: 03/04/23 08:09 Freq: Status: Active Protocol: Document 03/04/23 10:34 SAK (Rec: 03/04/23 16:23 [facility] [id number]) Hip Goniometric Range of Motion Hip swapnil Hip ROM WFL Yes Knee Goniometric Range of Motion Knee Right Knee ROM WFL No Left Knee ROM WFL Yes Knee ROM Limitations Knee ROM Limitations Soft Tissue Tightness,Swelling PT-OP-N Lymphedema Start: 03/04/23 08:09 Freq: Status: Active Protocol: Document 04/27/23 09:26 SAK (Rec: 04/27/23 10:17 [facility] [id number]) Lymphedema Measurements Lower Extremity Circumference Measurements Right MT Heads 22 cm Mid-foot 22.9 cm Medial Malleolus 26.5 cm 10 cm From Medial Malleolus 22.6 cm 20 cm From Medial Malleolus 29.7 cm 30 cm From Medial Malleolus 38.9 cm 40 cm From Medial Malleolus 36.8 cm 50 cm From Medial Malleolus 37.5 cm 60 cm From Medial Malleolus 46 cm 70 cm From Medial Malleolus 50.5 cm Knee Joint 40.1 cm Left MT Heads 23.2 cm Mid-foot 22.8 cm Medial Malleolus 25.9 cm 10 cm From Medial Malleolus 22 cm 20 cm From Medial Malleolus 31.4 cm 30 cm From Medial Malleolus 38 cm 40 cm From Medial Malleolus 39 cm 50 cm From Medial Malleolus 46.7 cm 60 cm From Medial Malleolus 51.1 cm 70 cm From Medial Malleolus 55.3 cm Knee Joint 42.8 cm - no measurements today due to training for donning compression stockings PT-OP-Q Treatments Start: 03/04/23 08:09 Freq: Status: Active Protocol: Document 04/27/23 09:26 [facility] (Rec: 04/27/23 10:17 [facility] [id number]) Lymphedema Treatment Compression Garment Assessment Compression Garment Assessment Details Good fit of 15-20 mm Hg stockings easier donning, but increase in most circumferential measurements PT-OP-T Assessment and Plan Start: 03/04/23 08:09 Freq: Status: Active Protocol: Document 04/27/23 09:26 [facility] (Rec: 04/27/23 10:17 [facility] [id number]) Physical Therapy Assessment Impairments Impairments Activity Tolerance,Edema,Soft Tissue Mobility Goals One Impairment lymphedema swapnil LE's right greater than left Short Term Goal (STG) Patient will be instructed in all aspects of lymphedema self -care to include skin care, self-massage, self-bandaging, and lymphedema exercises. STG Duration goal met Fiscal Services Director Goal (LTG) Decrease patient?s lymphedema to a stable level (no increase or decrease greater than 1 cm over the course of 1 week), patient to be independent with all aspects of self care for lymphedema, and will obtain appropriate compression garment for lymphedema management in the home. 04/27/23: patient independent with self-care except for the assistance of her son for donning and doffing due to right right shoulder and back pain LTG Duration 06/04/23 Three Impairment limited walking due to LE lymphedema Impairment AYESHA score is 18 (1-19% impaired, score 1-19). Pt goal is to get the back pain resolvedyoga), and control pain w/o medications. Fiscal Services Director Goal (LTG) Reduce lymphedema sufficient to allow patient to tolerate usual walks for health and function and in the community. 04/27/23: goal met LTG Duration goal met Two Impairment tissue fibrosis in LE's right greater than left Impairment Across LBP ~ level of L3-L4. Shelter Goal (LTG) Decrease soft tissue fibrosis bilateral LE's by at least 50% for improved lymphatic flow and LE function LTG Duration goal met Assessment Summary Assessment Good fit or 15-20 mm Hg compression stockings but appear to not be adequate to keep lymphedema as low as previously, PT recommended wearing more often especially if going to be on her feet a lot, monitor for increase in swelling, can layer compression (shown today can layer 2 15-20 mm Hg stockings. Patient demonstrated good understanding, will contact PT with any further questions. No further PT needs at this time. Physical Therapy Plan Discharge Physical Therapy Discharge Comments Goals mostly met, patient independent with glenn-care with assist of son.
== END 2023-04-29 10:39 ==
LOC: PHYS 09:30
PROVIDERS: Family Provider Family Medicine; PCP Family Medicine; Referring Provider Family Medicine; Visit Provider Family Medicine
DX: I89.0 Lymphedema, not elsewhere classified (principal); M79.9 Soft tissue disorder, unspecified; R26.2 Difficulty in walking, not elsewhere classified
CPT/HCPCS: 97110; 97140; 97162; 97530; 97535

== ENCOUNTER → 2023-05-29 12:34 | Outpatient (CLI) | payer MEDICARE, OTHER, SELFPAY ==
--- NOTE | 2023-05-29 | DI.ECHO.S_ITS ---
[facility] +---------+ : : [id number] [place] : : : : [id number] : : : : Phone: [phone]+ Echocardiogram Report + + :Name: CRISTI MCLAIN Study Date: 05/29/2023 Height: 61 in : :[facility] ReadingLocation: Weight: 115 lb : : Gender: Female BSA: 1.5 m2 : :: 1935 Age: 87 yrs BP: 128/65 mmHg: :Reason For Study: Presence of Prostheitc Heart Valve : :Ordering Physician: SABINE, : :MICHELLE Louie Performed By: Loren Samaniego : :Referring: MICHELLE REGALADO : + + Interpretation Summary The left ventricle is normal in size. The ejection fraction is estimated to be 55-60%. The right ventricle is mildly dilated. There is a pacemaker lead in the right ventricle. The right ventricular systolic function is normal. The right ventricular systolic pressure is estimated to be at least 57 mmHg based on an estimated right atrial pressure of 15 mm Hg. RVSP has increased. The left atrium is severely dilated. The right atrium is severely dilated. The mitral valve leaflets appear mildly thickened, but open well. There is mild to moderate mitral annular calcification. There is a hyperechoic mobile structure on the posterior mitral valve leaflet. Clinical correlation is needed to determine if finding is vegetative mass vs ruptured chordae tendinaea. Mass was not visualized on prior echo. There is mild to moderate mitral regurgitation. There is a prosthetic aortic valve. The peak aortic velocity is 1.79 m/sec. A tricuspid valve clip is present. There is moderate to severe tricuspid regurgitation. Compared to the prior echo exam, there has been an increase in TR severity. The aortic root is normal size. Procedure: A two-dimensional transthoracic echocardiogram with color flow and Doppler was performed. The study quality was technically adequate. Comparison is made with the echocardiogram of 06/05/2021. The patient has a paced rhythm. Left Ventricle: The left ventricle is normal in size. There is mild asymmetric left ventricular hypertrophy. The ejection fraction is estimated to be 55-60%. There are no focal wall motion abnormalities. Diastolic function could not be accurately assessed due to paced rhythm. Right Ventricle: The right ventricle is mildly dilated. There is a pacemaker lead in the right ventricle. The right ventricular systolic function is normal. Atria: The left atrium is severely dilated. The right atrium is severely dilated. The interatrial septum grossly appears intact with no obvious evidence for an atrial septal defect. Mitral Valve: The mitral valve leaflets appear mildly thickened, but open well. There is mild to moderate mitral annular calcification. There is a hyperechoic mobile structure on the posterior mitral valve leaflet. Clinical correlation is needed to determine if finding is vegetative mass vs ruptured chordae tendinaea. There is no mitral valve stenosis. There is mild to moderate mitral regurgitation. Aortic Valve: There is a prosthetic aortic valve. The peak aortic velocity is 1.79 m/sec. The aortic valve mean gradient is 7 mmHg. There is trace aortic regurgitation. Tricuspid Valve: A tricuspid valve clip is present. There is moderate to severe tricuspid regurgitation. Compared to the prior echo exam, there has been an increase in TR severity. The right ventricular systolic pressure is estimated to be at least 57 mmHg based on an estimated right atrial pressure of 15 mm Hg. Pulmonic Valve: The pulmonic valve leaflets are thin and pliable; valve motion is normal. There is no pulmonic valvular stenosis. There is mild pulmonic regurgitation. Great Vessels: The aortic root is normal size. The ascending aorta is normal in size. The pulmonary artery is normal size. The IVC is dilated (diameter is greater than 2.1 cm) and it collapses less than 50% with a sniff. This suggests a high right atrial pressure of 15 mm Hg. Pericardium/ Pleura There is no pericardial effusion. There is no pleural effusion. MMode/2D Measurements & Calculations LVIDd: 4.2 cm LVOT diam: 1.9 cm LVIDs: 2.6 cm Ao root diam: 2.8 cm FS: 38.1 % asc Aorta Diam: 3.0 cm IVSd: 1.0 cm LVPWd: 1.4 cm LV tinajero. diameter/BSA (cm/m^2): 2.8 LV sys. diameter/BSA (cm/m^2): 1.7 LA A2 area: 25.1 cm2 RA long axis: 7.3 cm LA A4 area: 25.0 cm2 RA area: 28.7 cm2 LA length (vol): 6.7 cm RA vol: 96.2 ml LA vol: 79.9 ml RA : 64.4 ml/m2 LA vol index: 53.5 ml/m2 RVD1 (basal): 4.3 cm LVLs ap4: 4.5 cm LVLd ap2: 5.4 cm LVLs ap2: 4.2 cm Doppler Measurements & Calculations Ao V2 max: 176.0 cm/sec LVOT Max Candelario: 95.0 cm/sec Ao V2 mean: 118.7 cm/sec LV V1 max P.6 mmHg Ao max P.0 mmHg LV V1 VTI: 18.6 cm Ao mean P.0 mmHg LACIE(I,D): 1.5 cm2 Ao V2 VTI: 35.8 cm LACIE(V,D): 1.5 cm2 sev ratio: 0.52 LACIE indexed to BSA (cm^2/m^2): 0.99 TR max candelario: 350.6 cm/sec SV(LVOT): 52.7 ml TR max P.4 mmHg PA V2 max: 154.0 cm/sec PA V2 mean: 104.0 cm/sec PA mean P.0 mmHg PA pr(Accel): 43.5 mmHg AV VR_phl: 0.54 LACIE(VTI)/BSA_phl: 0.99 Reading Physician:02:26 PM
== END ==
PROVIDERS: Family Provider Family Medicine; PCP Family Medicine; Referring Provider Nurse Practitioner; Visit Provider Nurse Practitioner
DX: Z95.2 Presence of prosthetic heart valve (principal); I51.7 Cardiomegaly; Z95.0 Presence of cardiac pacemaker; I34.81 Nonrheumatic mitral (valve) annulus calcification; I34.0 Nonrheumatic mitral (valve) insufficiency; I07.1 Rheumatic tricuspid insufficiency
CPT/HCPCS: 93306

== ENCOUNTER → 2023-06-19 11:01 | Outpatient (CLI) | payer MEDICARE, OTHER, SELFPAY ==
--- NOTE | 2023-06-19 11:04 | DI.CT.S_ITS ---
PROCEDURE: CT ABDOMEN PELVIS W CON INDICATIONS: abd bloating and fecal incontance TECHNIQUE: After the administration of oral and intravenous contrast, axial sections were acquired from the lung bases to the pubic symphysis. Coronal and sagittal reformats were performed. For radiation dose reduction, the following was used: automated exposure control, adjustment of mA and/or kV according to patient size. COMPARISON:None. FINDINGS: Image quality: Excellent. Lung bases: Mild right pleural effusion with associated right basilar atelectasis. Minimal left pleural effusion. Heart: Aortic valve, pacemaker, four-chamber cardiomegaly. ABDOMEN: Liver: Unremarkable. Gallbladder: Unremarkable without calcified gallstones. Biliary ducts: Unremarkable. Pancreas: Unremarkable. Spleen: Unremarkable. Adrenal Glands: Unremarkable. Kidneys and Ureters: Unremarkable. Stomach and Bowel: Extensive sigmoid diverticulosis without evidence of diverticulitis. Peritoneum: No abnormal intraperitoneal fluid. No free air. Ventral Wall: No hernia. Abdominal Nodes: No retroperitoneal or mesenteric adenopathy by size criteria. Vessels: Aorta and inferior vena cava are normal in size. PELVIS: Pelvic Organs: Uterus is surgically absent. There is a very prominent enterocele. There is a question of near rectal prolapse. Bladder: Unremarkable. Pelvic Nodes: No enlarged lymph nodes. Miscellaneous: No inguinal hernias are seen. Bones: Lumbar degenerative change. No lytic or blastic bony lesions. No compression fractures. IMPRESSION: 1. Surgically absent uterus. 2. Pelvic floor relaxation with very prominent enterocele and question of near rectal prolapse. 3. Valve prosthesis, pacemaker, four-chamber cardiomegaly. 4. Small right pleural effusion, minimal left pleural effusion, minimal right basilar atelectasis. 5. Extensive sigmoid diverticulosis without evidence of diverticulitis. Dictated by: Jerry Wick M.D. on 06/19/2023 at 17:24 Approved by: Jerry Wick M.D. on 06/19/2023 at 17:30
[2023-06-19 11:28] LABS: Blood Urea Nitrogen 30 mg/dL (7-17); Estimated Glomerular Filt Rate > 60 mL/min (>60)
== END ==
PROVIDERS: Family Provider Family Medicine; PCP Family Medicine; Referring Provider Family Medicine; Visit Provider Family Medicine
DX: Z01.812 Encounter for preprocedural laboratory examination (principal); J90 Pleural effusion, not elsewhere classified; I51.7 Cardiomegaly; K57.30 Diverticulosis of large intestine without perforation or abscess without bleeding; N81.89 Other female genital prolapse; R14.0 Abdominal distension (gaseous); R15.9 Full incontinence of feces; Z90.710 Acquired absence of both cervix and uterus; Z95.0 Presence of cardiac pacemaker; Z95.2 Presence of prosthetic heart valve
CPT/HCPCS: 36415; 74177; 82565; 84520; Q9967

== ENCOUNTER → 2023-08-28 14:50 | Outpatient (CLI) | payer MEDICARE, OTHER, SELFPAY ==
[2023-08-28 16:00] LABS: Add Manual Diff / Slide Review NO; Basophils Absolute Auto 100 /uL (0-100); Basophils Percent Auto 1.1 % (0-2); Eosinophils Absolute Auto 400 /uL (0-450); Eosinophils Percent Auto 5.8 % (2-4); Hematocrit 35.2 % (36-46); Hemoglobin 11.5 g/dL (12.0-16.0); Lymphocytes Absolute Auto 1100 /uL (1100-4500); Lymphocytes Percent Auto 16.4 % (25-40); Mean Corpuscular HGB Conc 32.7 % (30-36); Mean Corpuscular Hemoglobin 29.5 PG (26-34); Mean Corpuscular Volume 90.3 fL (80-100); Monocytes Absolute Auto 600 /uL (0-900); Neutrophils Absolute Auto 4500 /uL (1500-7000); Neutrophils Percent Auto 67.7 % (50-75); Platelet Count 165 X10^3/uL (150-400); Red Cell Distribution Width 14.7 % (11.6-14.8); White Blood Cell Count 6.6 X10^3/uL (4.5-11.0)
[2023-08-28 16:26] LABS: Alanine Aminotransferase 25 IU/L (<35); Albumin Globulin Ratio 1.1 (1.0-2.8); Alkaline Phosphatase 70 U/L (38-126); Aspartate Aminotransferase 37 IU/L (14-36); BUN Creatinine Ratio 30.5 (6-22); Bilirubin Total 0.6 mg/dL (0.2-1.3); Blood Urea Nitrogen 43 mg/dL (7-17); Calcium 9.3 mg/dL (8.4-10.2); Carbon Dioxide 31 mmol/L (22-32); Chloride 97 mmol/L (98-107); Estimated Glomerular Filt Rate 36 mL/min (>60); Globulin 3.5 g/dL (1.7-4.1); Glucose 113 mg/dL (80-110); HEMOLYSIS < 15 (0-50); Magnesium 2.2 mg/dL (1.6-2.3); Potassium 4.5 mmol/L (3.4-5.1); Sodium 136 mmol/L (137-145); Total Protein 7.5 g/dL (6.3-8.2)
[2023-08-28 16:33] LABS: NT-proBNP (BNP-Adult 18+) 2290 pg/mL (<450)
== END ==
LOC: LAB 15:06
PROVIDERS: Family Provider Family Medicine; PCP Family Medicine; Referring Provider Internal Medicine Cardiovascular Disease; Visit Provider Internal Medicine Cardiovascular Disease
DX: I48.21 Permanent atrial fibrillation (principal); R06.2 Wheezing; R06.02 Shortness of breath; I27.81 Cor pulmonale (chronic); I36.1 Nonrheumatic tricuspid (valve) insufficiency
CPT/HCPCS: 80053; 83735; 83880; 85025; 87040

== ENCOUNTER → 2023-09-07 09:40 | Outpatient (CLI) | payer MEDICARE, OTHER, SELFPAY ==
[2023-09-07 11:21] LABS: BUN Creatinine Ratio 32.5 (6-22); Blood Urea Nitrogen 38 mg/dL (7-17); Calcium 9.5 mg/dL (8.4-10.2); Carbon Dioxide 28 mmol/L (22-32); Chloride 101 mmol/L (98-107); Estimated Glomerular Filt Rate 45 mL/min (>60); Glucose 83 mg/dL (80-110); HEMOLYSIS < 15 (0-50); Potassium 4.7 mmol/L (3.4-5.1); Sodium 137 mmol/L (137-145)
[2023-09-07 11:54] LABS: TSH w/ Reflex to FT4 1.61 uIU/mL (0.47-4.68)
== END ==
LOC: LAB 09:41
PROVIDERS: Family Provider Family Medicine; PCP Family Medicine; Referring Provider Internal Medicine Cardiovascular Disease; Visit Provider Internal Medicine Cardiovascular Disease
DX: E03.9 Hypothyroidism, unspecified (principal); I50.32 Chronic diastolic (congestive) heart failure
CPT/HCPCS: 36415; 80048; 84443

== ENCOUNTER 2023-10-06 12:04 | Inpatient (IN) | payer MEDICARE, OTHER, SELFPAY ==
[2023-10-05 14:56] VITALS: BMI 17.9
[2023-10-06] VITALS (10 sets, daily range): BP systolic 86–126; BP diastolic 45–65; PULSE 68–70; RESP 12–912; TEMP 36.3–36.9; O2SAT 92–100; BMI 17.9
--- NOTE | 2023-10-06 | PATH_ITS ---
[facility] Accession Number: [id number] No. of containers..01 Tissue . 01 Material submitted: . rectum - RECTUM . 01 Diagnosis: RECTUM, SEGMENTAL RESECTION: Segment of colorectal tissue with erosions and focal features of mucosal ischemia, consistent with prolapse. Negative for granulomas, dysplasia, or malignancy. [facility] 10/08/2023 1132 Local . 01 Electronically signed: . Tashi Pettit MD, PhD, Pathologist NPI- [id number] . 01 Gross description: . The specimen is received in formalin labeled with the patient's name, , and rectum, consists of a single unoriented segment of large bowel measuring 5.5 cm in length and 4.5 cm in greatest external diameter. Both ends are patent. Skin is not identified. The external surface is intact and covered with hills-brown skeletal muscle (inked black). The segment of bowel is opened to reveal hills-brown, roughened and plicated folds with no polyps or lesions seen. Health Information Management Director sections are submitted as follows: . A1: One margin, perpendicular. A2: Opposing margin, perpendicular. A3-A4: Two longitudinal cross sections, each bisected. ([id number]) /MRV 10/07/2023 1301 Local . 01 Pathologist provided ICD-10: K62.3 . 01 CPT . 684821 Specimen Comment: A courtesy copy of this report has been sent to [phone] Performed at: [address] [id number] MD Jose Angel Navarro MD Phone: [phone]
--- NOTE | 2023-10-06 12:35 | PM.PREOP ---
Pre-operative Note COVID-19 COVID-19 status: Not tested Interval Note History & Physical reviewed/Exam performed by Physician: Yes Changes to H&P: Yes H&P completed within 30 days and has changed as indicated here:: Celena reports that her rectal prolapse is larger now and protrudes further out more frequently. ASA Class (for procedural sedation): III
[2023-10-06] MEDS: LACTATED RINGERS 1,000 ML 42 ML IV (13:07)
[2023-10-06] MEDS: AMPICILLIN/SULBACTAM 1.5 GM 1.5 GM in SODIUM CHLORIDE 0.9% 100 ML IV (13:30)
--- NOTE | 2023-10-06 13:44 | SUR.OPER ---
Lithotomy on padded OR bed. [place] Pad Positioner under torso. Head on pillow, arms padded and abducted 90 degrees. Legs secured in padded yellow fins stirrups.
[2023-10-06] MEDS: BUPIVACAINE 0.5% (PF) 30 ML, EPINEPHrine 0.15 MG INJ (13:48)
--- NOTE | 2023-10-06 16:00 | PM.OP.1 ---
Operative Date/Time/Diagnoses Date of procedure: 10/06/23 Time of procedure: 16:00 Pre-op diagnosis: Full-thickness rectal prolapse Post-op diagnosis: same Procedure & Clinicians Procedure: Perineal rectosigmoidectomy Same procedure as scheduled: Yes Surgeon: Trent Herrera Anesthesia Type: General Operative Notes Procedure in detail: The patient was brought to the operating room and MAC was induced. She was positioned in high lithotomy position. The perineum was prepped with betadine. A time-out was performed. The rectum was grasped with Jessi clamps to reproduce the prolapse. The rectal prolapse protruded about 7 cm. We used the bovie cautery to trent a line about 1.5 cm proximal to the dentate line. We cauterized through the mucosa and the layers of smooth muscle, entering the pouch of Uli anteriorly. A finger was inserted into the vagina and the rectovaginal seputm was noted to be quite thin but intact. We then continued the division of the bowel wall circumferentially. We then took down the mesentery with a ligasure staying close to the bowel. We resected roughly 9 cm of rectum and colon. An attempt was made a posterior levator plasty however the levators were so thin it was difficult to positively identify the muscles and therefore no levatorplasty was performed.. We then performed a hand sewn anastomosis using 2-0 vicryl sutures in an interrupted fashion. A gel foam was placed into the rectum followed by some guaze and mesh underwear. EBL: 50 mL Post-operative Condition: stable Disposition: PACU
[2023-10-06] MEDS: LACTATED RINGERS 1,000 ML 75 ML IV (16:57)
--- NOTE | 2023-10-06 19:52 | PC.NURSE ---
Patient arrived this evening to room 211 at 1630 this evening. She is A&OX4, on RA, she initiially denies any post op pain to abdomen or perineal area. She tolerates dinner well, and is able to get up to the bathroom and void, minimal spotting to caitlin pad. Family supportive at bedside left for the evening. IVF LR at 75 ml/hr, bed alarm on, call light in reach, continuous monitoring. Encoouraged IS use, SCD's on.
[2023-10-06] MEDS: dilTIAZem CD 180 MG CAP PO (20:43)
[2023-10-06] MEDS: HYDROMORPHONE 0.5 MG INJ 0.25 MG IV (20:48)
--- NOTE | 2023-10-07 00:29 | PC.NURSE ---
Patient is oriented except to year. Breath sounds diminished but CTA with RA sat of 93%. HRR. Denied nausea. BT present and abdomen is soft but has not yet passed flatus following surgery. Incontinent of urine this shift so brief changed and pericare given; noted bruising around rectal area but no blood on pad. Is able to turn herself when asked to do so. Noted to have 1+ edema in bilateral LE. Earlier complained of abdominal pain and was medicated with Dilaudid and pain has resolved. States she has chronic tingling in bilateral LE and also has generalized weakness; gait not assessed at this time. Wearing bilateral calf SCD's. Fall risk score is high and bed alarm is activated.
[2023-10-07 00:35] VITALS: BP 106/48; PULSE 70; RESP 19; TEMP 36.9; O2SAT 93
[2023-10-07] MEDS: LACTATED RINGERS 1,000 ML 75 ML IV (02:01)
[2023-10-07 04:56] LABS: Add Manual Diff / Slide Review NO; Basophils Absolute Auto 0 /uL (0-100); Basophils Percent Auto 0.1 % (0-2); Eosinophils Absolute Auto 0 /uL (0-450); Hematocrit 27.1 % (36-46); Hemoglobin 9.1 g/dL (12.0-16.0); Lymphocytes Absolute Auto 700 /uL (1100-4500); Lymphocytes Percent Auto 5.5 % (25-40); Mean Corpuscular HGB Conc 33.5 % (30-36); Mean Corpuscular Hemoglobin 30.3 PG (26-34); Mean Corpuscular Volume 90.4 fL (80-100); Monocytes Absolute Auto 600 /uL (0-900); Monocytes Percent Auto 4.6 % (3-14); Neutrophils Absolute Auto 11200 /uL (1500-7000); Neutrophils Percent Auto 89.8 % (50-75); Platelet Count 139 X10^3/uL (150-400); Red Blood Cell Count 2.99 X10^6/uL (4.0-5.2); Red Cell Distribution Width 14.1 % (11.6-14.8); White Blood Cell Count 12.5 X10^3/uL (4.5-11.0)
[2023-10-07 05:10] VITALS: BP 106/44; PULSE 70; RESP 19; TEMP 37; O2SAT 95
[2023-10-07] MEDS: LEVOTHYROXINE 50 MCG TABLET PO (05:29)
[2023-10-07 07:00] VITALS: BP 103/46; PULSE 70; RESP 16; TEMP 37.1; O2SAT 92
--- NOTE | 2023-10-07 09:15 | P.PN_ITS ---
Subjective Subjective Date Patient Seen: 10/07/23 Time Patient Seen: 09:15 Interval history: Doing well today. Tolerating a diet. She reports she had 3 small bowel movements this morning. Exam Vital Signs (past 8 hours): - 10/07/23 05:10 Temperature 98.6 F Pulse Rate 70 Respiratory Rate 19 Blood Pressure 106/44 L Pulse Oximetry 95 Oxygen Delivery Method Room Air Const General: No acute distress Objective Labs 10/07/23 04:30 Labs: Laboratory Results - last 24 hr 10/07/23 04:30 WBC 12.5 H RBC 2.99 L Hgb 9.1 L Hct 27.1 L MCV 90.4 MCH 30.3 MCHC 33.5 RDW 14.1 Plt Count 139 L Neut % (Auto) 89.8 H Lymph % (Auto) 5.5 L [place] % (Auto) 4.6 Eos % (Auto) 0.0 L Baso % (Auto) 0.1 Neut # (Auto) 28007 H Lymph # (Auto) 700 L [place] # (Auto) 600 Eos # (Auto) 0 Baso # (Auto) 0 PFSH Medical History (Updated 10/05/23 @ 15:20 by Farida Nair RN) History of cardioversion Pacemaker (10/23/21) History of COVID-19 (05/19/21) Thoracic spondylosis Compression fracture of body of thoracic vertebra Dyspnea on exertion T9 vertebral fracture T7 vertebral fracture Back pain Somatic dysfunction of thoracic region Somatic dysfunction of rib Somatic dysfunction of upper extremity Somatic dysfunction of pelvic region Somatic dysfunction of lower extremity Sacral region somatic dysfunction Lumbar region somatic dysfunction Cranial somatic dysfunction Cervical (neck) region somatic dysfunction Somatic dysfunction of abdominal region Presence of cardiac pacemaker COPD exacerbation Abdominal ascites Elevated TSH Urinary leakage Urinary incontinence Hyperlipidemia Osteoporosis (~1989) Foot deformities, congenital Aortic valve stenosis (11/09/13) Surgical History (Updated 10/05/23 @ 15:20 by Farida Nair RN) History of cardiac radiofrequency ablation (10/29/21) Hx of bilateral cataract extraction (2006) Personal history of tricuspid valve disease History of aortic valve replacement with bioprosthetic valve (07/18/16) History of carpal tunnel release Normal colonoscopy (2005) History of tonsillectomy Family History Brother Hyperlipidemia Hypertension Sister Age: 76 Ovarian cancer Father No problems noted. Mother No problems noted. Other Breast cancer CAD (coronary artery disease) Colorectal cancer Diabetes mellitus Social History marital status: number of children: 3 household members: none lives independently: Yes occupational status: other Smoking Status: Never smoker alcohol intake: current Assessment & Plan Assessment and plan (1) Rectal prolapse: Status: Acute Plan Doing well following perineal rectosigmoidectomy (Altemeier procedure). Given her advanced age I plan to keep her here for another day.
[2023-10-07] MEDS: LATANOPROST 0.005% OPHTH 2.5 ML 1 DROPS EYE-BOTH (10:39)
[2023-10-07] MEDS: ACETAMINOPHEN 325 MG TABLET 650 MG PO ×2 (10:40→16:38)
--- NOTE | 2023-10-07 15:24 | CM.DANOTE ---
Initial DCP Assessment Visit Reviewed EMR and team rounds for pt's medical status. Attempted to meet with her at bedside, however she was found to be sleeping very comfortably and did not want to disturb her. Pt' son will be staying with pt post-d/c to provide post-op aftercare and assist with home needs, he will also transport pt home once medically cleared. Payor: Medicare Attending: Dr. Herrera Pt is a 88 year-old F admitted for a planned surgery to correct her prolapsed rectum. Pt completed this surgery yesterday, is doing well post-operatively, and will be d/c'd home tomorrow w/family assisting. DCP will continue to monitor for any evolving home d/c needs. Discharge Planning/Care Management CM Discharge Assessment Start: 10/07/23 15:16 Freq: Status: Active Protocol: Document 10/07/23 15:16 DPL (Rec: 10/07/23 15:24 DPL [id number]) Discharge Planning Assessment Assigned Quality Control Lab Tech VIVI Toussaint Advance Directives? Yes: POLST/Health Care Directive Advance Directives on File Yes History Provided By Medical Record Expected Length of Stay 2 Has Patient been admitted in last 30 No days? Prior Living Arrangements House Comment Son will be staying with patient Household Members none Type of transporation used prior to Drives own vehicle admit Independent with ADL's Yes Is patient alert and oriented? Yes Caregiver for Another No Comment N/A Comment Pt was found to be sleeping, unable to obtain this info during today's visit. Comment No identified d/c needs at this time. Barriers to Discharge No Discharge Plan Home Transportation Arrangement Son Whiteboard Updated in Patient Room with Yes name and ext. # of Quality Control Lab Tech Review Status In Process Please Provide Date Initial DC 10/07/23 Assessment Was Performed Pre-Anesthesia Assessment Start: 10/05/23 14:56 Freq: Status: Complete Protocol: Document 10/05/23 14:56 CAB (Rec: 10/05/23 15:30 CAB [id number]) Pre-Anesthesia Assessment PAC Comment Unable to reach pt by phone, message left. Patient Information Reviewed Via Chart Review Primary Care Provider Jonn Rangel Seen Specialist in Last 12 Months Yes Specialist Seen General surgeon Primary Language Ivorian Outbound Sales Professional Required No Height 165.1 cm Weight 48.988 kg Body Mass Index (BMI) 17.9 Hearing Ability Hearing Impaired,Use of Hearing Aid Visual Assist Glasses Hx Anesthesia Reactions No Hx Family Anesthesia Reaction No Hx Malignant Hyperthermia No Hx Blood Transfusions No Anesthesia Review Requested No Radar Operator No alcohol intake current alcohol intake frequency holidays/special occasions only Smoking Status Never smoker Substance Use Type does not use Musculoskeletal Symptoms Arthralgias Patient is completely paralyzed or No completely immobile Prosthesis or Orthotic Device Cane,Front Wheel Walker Mental Status Oriented to own ability Is patient on oxygen? No Does patient have MCNAMARA/SOB Yes Hx Sleep Apnea No Currently Taking a Beta Yo No Hx Chest Pain Yes Hx SOB Yes Hx Syncope or Dizziness No Has a Industrial Relations Worker Yes Industrial Relations Worker name Dr. Lerma Hx Pacemaker/ICD Yes: Pacer form scanned and in surgery folder for dos Pacemaker Rep Required? No Comment Most recent cardiac visit, EKG in surgery folder for dos Urinary Catheter Present No Hx Urinary Self Catheterization No Diabetes No Patient No Lactating No Presence of External or Internal Medical Yes: TAVR, bilat eye IOLs, Devices pacemaker Received a COVID vaccine? Yes Marital Status / Lives With none Patient Discharge Plan Description Return Home Advance Directives? Yes: POLST/Health Care Directive
[2023-10-07 16:46] VITALS: BP 104/44; PULSE 70; RESP 16; TEMP 36.8; O2SAT 93
[2023-10-07] MEDS: HYDROCODONE/ACET 5/325 TABLET 1 TAB PO (17:29)
--- NOTE | 2023-10-07 17:44 | DIET.CONS ---
Dietary Consultation Note Admission Date: 10/06/2023 12:04 Assessment: 88F s/p perineal rectosigmoidectomy r/t rectal prolapse. RD screen for PCM due to BMI <18. Reports most recent weight loss is more related to diuretic she received from cardiology due to fluid retention in my lungs. Weight history does not indicate significant weight loss over the last month. Instead she has had a steady decline in weight of 14% in one year. BMI is severely low for age <21. Nutrition focused physical exam does indicate some wasting in orbital, temporal, and interosseus muscle. Wasting ranges from moderate to severe. wt hx (kg): 48.988 09/2023 49.442 07/2023 52.617 06/2023 53.552 03/2023 57.153 09/2022 Reports she has some smoothie ingredients at home for a protein shake. Recent labs GFR 45 and Cr 1.17H Diet recall: B: oatmeal or egg on toast with orange L: leftovers D: fish with veg and 1c rice OR pasta x 1c OR colón/chx burrito Sn: nothing or one chocolate Beverages; water, tea, coffee, oj Ht: 165.1 cm Wt: 48.988 kg BMI: 17.9 UBW: 54.5kg reported Last BM: 10/07/23 (10/07/23 09:00) MNA: 10 Bassam Score: 20 Diet: 10/06/23 Dinner General (Regular) Diet Diet Modifications: Nutrition Percent Meal Consumed 100% 10/07/23 09:00 Labs: RBC 2.99 X10^6/uL (4.0-5.2) L 10/07/23 04:30 Hgb 9.1 g/dL (12.0-16.0) L 10/07/23 04:30 Hct 27.1 % (36-46) L 10/07/23 04:30 Nutrition Diagnosis: Chronic moderate protein calorie malnutrition r/t predicted inadequate protein intake aeb BMI <18 and moderate to severe physical signs of wasting in temples, orbital, and interosseous muscle. Interventions: Rec addition of one more protein snack at home Kitchen will send pb shake for her prior to d/c EER: 60-70g PRO (1.3-1.4g/kg per PCM) 1600-1700kcals (34-35kcal/kg per BMI) Monitoring/Evaluations: RD f/u 3-5 days, though likely d/c prior to this time. Electronically Signed by: Kimmie Belle 10/07/23 17:44 Clinical Dietitian [address] [id number]
[2023-10-07] MEDS: SODIUM CHLORIDE 0.9% FLUSH 10 ML IV (20:36)
[2023-10-07] MEDS: dilTIAZem CD 180 MG CAP PO (20:36)
[2023-10-07 20:40] VITALS: BP 110/63; PULSE 71; RESP 17; TEMP 36.8; O2SAT 94
[2023-10-08 00:07] VITALS: BP 110/60; PULSE 67; RESP 16; TEMP 36.4; O2SAT 100
--- NOTE | 2023-10-08 01:01 | PC.NURSE ---
Patient is alert and oriented except did not know the day of the week and did falter with the year but able to correctly state it after some hesitation. Breath sounds CTA with RA sat of 94%. HRR; has pacemaker. Denied nausea but reports some chronic epigastric tenderness. Abdomen is soft and had BM on previous shift. Voiding on toilet but also wearing brief as has had some incontinence this hospitalization; denied dysuria but did some she has had some vaginal tenderness but declined need for pain medication. She is able to turn herself in bed with prn assistance. 1+ bilateral LE edema still and is wearing bilateral calf SCD's. Fall risk score is moderate and bed alarm is activated.
[2023-10-08 04:45] VITALS: BP 106/57; PULSE 70; RESP 18; TEMP 36.6; O2SAT 93
[2023-10-08] MEDS: LEVOTHYROXINE 50 MCG TABLET PO (06:18)
--- NOTE | 2023-10-08 07:41 | P.DS_ITS ---
History of Present Illness History of Present Illness Date Patient Seen: 10/08/23 Time Patient Seen: 07:41 Chief complaint: Proctectomy/Rectal Prolapse Repair Narrative: Celena is doing well. She has had a few more small BMs. Discharge Providers Provider Date of admission: 10/06/23 12:04 Discharge Date: 10/08/23 Primary care physician: Jonn Rangel MD Discharge provider: Magnus Herrera MD Summary Hospital Course Discharge Diagnosis: Rectal prolapse Hospital Course: Celena underwent a perineal rectosigmoidectomy on 10/06/23. She recovered on the floor. She had a few small bowel movements. She tolerated a regular diet. Exam Vital Signs (past 8 hours): - 10/08/23 00:07 10/08/23 04:45 Temperature 97.6 F 97.8 F Pulse Rate 67 70 Respiratory Rate 16 18 Blood Pressure 110/60 106/57 L Pulse Oximetry 100 93 Oxygen Flow Rate 0 0 Oxygen Delivery Method Room Air Oxygen Flow Rate 0 Const General: No acute distress Resp Effort & Inspection: normal respiratory effort Objective Labs 10/07/23 04:30 [facility] Medical History (Updated 10/05/23 @ 15:20 by Farida Nair RN) History of cardioversion Pacemaker (10/23/21) History of COVID-19 (05/19/21) Thoracic spondylosis Compression fracture of body of thoracic vertebra Dyspnea on exertion T9 vertebral fracture T7 vertebral fracture Back pain Somatic dysfunction of thoracic region Somatic dysfunction of rib Somatic dysfunction of upper extremity Somatic dysfunction of pelvic region Somatic dysfunction of lower extremity Sacral region somatic dysfunction Lumbar region somatic dysfunction Cranial somatic dysfunction Cervical (neck) region somatic dysfunction Somatic dysfunction of abdominal region Presence of cardiac pacemaker COPD exacerbation Abdominal ascites Elevated TSH Urinary leakage Urinary incontinence Hyperlipidemia Osteoporosis (~1989) Foot deformities, congenital Aortic valve stenosis (11/09/13) Surgical History (Updated 10/05/23 @ 15:20 by Farida Nair RN) History of cardiac radiofrequency ablation (10/29/21) Hx of bilateral cataract extraction (2006) Personal history of tricuspid valve disease History of aortic valve replacement with bioprosthetic valve (07/18/16) History of carpal tunnel release Normal colonoscopy (2005) History of tonsillectomy Family History Brother Hyperlipidemia Hypertension Sister Age: 76 Ovarian cancer Father No problems noted. Mother No problems noted. Other Breast cancer CAD (coronary artery disease) Colorectal cancer Diabetes mellitus Social History marital status: number of children: 3 household members: none lives independently: Yes occupational status: other Smoking Status: Never smoker alcohol intake: current Discharge Assessment & Plan Assessment and Plan Assessment: Doing well. Home today. No restricitons. Follow up in 2-3 weeks. Discharge Plan Discharge Plan Patient Disposition: Home Provider Discharge Comment: No restrictions Discharge orders & Medications Prescriptions: Continued latanoprost 0.005 % drops 1 drp EYE-BOTH DAILY diltiazem HCl 180 mg capsule,extended release 24hr 180 mg PO BID Qty: 180 3RF potassium chloride 10 mEq capsule, extended release 10 meq PO DAILY (DME) Disabled Parking See Rx Instructions .ROUTE .MEDSUPPLY Qty: 1 0RF Rx Instructions: I find this patient to be medically disabled and qualified for Disabled Parking as indicated, and signed, on the Accompanying Disabled Parking Application for Individuals cholecalciferol (vitamin D3) 125 mcg (5,000 unit) capsule 125 mcg PO DAILY ascorbic acid (vitamin C) 1,000 mg tablet 1,200 mg PO DAILY levothyroxine 50 mcg tablet 50 mcg PO DAILY Qty: 90 0RF lidocaine HCl-hydrocortison ac 3-0.5 % cream 1 applic IA BEDTIME PRN (Reason: hemorrhoids) Qty: 98 0RF acetaminophen-codeine 300-30 mg Tablet 1 tab PO DAILY PRN (Reason: Pain) Entresto 24-26 mg Tablet 1 tab PO BID torsemide 10 mg tablet 10 mg PO DAILY Follow up/Referrals: Jonn Rangel MD [Primary Care Provider] - Visit Report/Discharge Packet Stand Alone Forms: Patient Portal/API, Stroke Signs & Symptoms Discharge Data Primary Care Provider: Jonn Rangel
[2023-10-08] MEDS: ACETAMINOPHEN 325 MG TABLET 650 MG PO (08:48)
[2023-10-08] MEDS: LATANOPROST 0.005% OPHTH 2.5 ML 1 DROPS EYE-BOTH (08:48)
[2023-10-08 08:51] VITALS: BP 122/50; PULSE 70; RESP 16; TEMP 35.9; O2SAT 96
--- NOTE | 2023-10-08 11:03 | CM.DPC ---
DCP Cont. Reviewed EMR and team rounds for status updates. Completed referral and faxed clinicals to [facility], pt's preferred HH agency. Plan is to d/c home today with her son providing for care assistance and transport home. No further d/c needs identified at this time.
== END 2023-10-08 11:05 | disposition home or self-care (01) | DRG 330 ==
PROVIDERS: Admitting Provider Surgery; Family Provider Family Medicine; PCP Family Medicine; Referring Provider Surgery; Visit Provider Surgery
PROC: 0DBN0ZZ Excision of Sigmoid Colon, Open Approach (ICD-10-PCS; CPT 45505; principal; 2023-10-06 13:15)
DX: K62.3 Rectal prolapse (principal); E46 Unspecified protein-calorie malnutrition; Z68.1 Body mass index [BMI] 19.9 or less, adult; E07.9 Disorder of thyroid, unspecified; Z95.0 Presence of cardiac pacemaker
CPT/HCPCS: 36415; 45130; 85025; 93005; J0171; J0295; J1170; J1885; J2704; J3010

== ENCOUNTER → 2023-12-07 08:21 | Outpatient (CLI) | payer MEDICARE, OTHER, SELFPAY ==
[2023-10-06 17:35] VITALS: BMI 17.9
--- NOTE | 2023-12-07 08:22 | DI.RAD.S_ITS ---
PROCEDURE: FL BARIUM SWALLOW INDICATIONS: abd pain COMPARISON: [facility], CT, CT ABDOMEN PELVIS W CON, 06/19/2023, 12:35. [facility], CR, XR CHEST 2V, 03/05/2023, 8:38. FINDINGS: Left pacemaker. Aortic valve replacement. Post median sternotomy. Function: There is esophageal dysmotility demonstrable by diminished peristaltic stripping and tertiary contractions. There is marked esophageal dysmotility in the prone position. There is spontaneous gastroesophageal reflux in the upright position. No elicited reflux. There is slight delay of the barium tablet at the upper esophagus. Subsequently passed rapidly with water. Morphology: There is mild piriform sinus pooling. No jen aspiration. The patient experienced 1 episode of prolonged coughing after drinking water in the [id number] decubitus position. Air-contrast images demonstrate normal mucosal morphology. Single contrast views show no esophageal strictures, extrinsic mass effects, or diverticula. The stomach demonstrate normal appearance. No hiatal hernia. There is mild delay of contrast from the stomach into the proximal duodenum. After moving the patient to the [id number] decubitus position the contrast flowed into the duodenum. IMPRESSION: 1. Esophageal dysmotility moderate in the upright position and marked in the prone position. 2. Spontaneous gastroesophageal reflux. No hiatal hernia. 3. No stricture or diverticulum. 4. Abnormal appear form sinus pooling. No jen aspiration demonstrated. Consider formal speech pathology evaluation. Dictated by: Basil Schuster M.D. on 12/07/2023 at 10:22 Approved by: Basil Schuster M.D. on 12/07/2023 at 10:32
== END ==
LOC: RAD 08:22
PROVIDERS: Family Provider Family Medicine; PCP Family Medicine; Referring Provider Family Medicine; Visit Provider Family Medicine
DX: K22.4 Dyskinesia of esophagus (principal); K21.9 Gastro-esophageal reflux disease without esophagitis; R10.9 Unspecified abdominal pain; T50.Z95A Adverse effect of other vaccines and biological substances, initial encounter
CPT/HCPCS: 74220

== ENCOUNTER → 2024-02-23 16:49 | Outpatient (CLI) | payer MEDICARE, OTHER, SELFPAY ==
[2023-10-06 17:35] VITALS: BMI 17.9
[2024-02-23 18:04] LABS: Add Manual Diff / Slide Review NO; Basophils Absolute Auto 100 /uL (0-100); Basophils Percent Auto 1.1 % (0-2); Eosinophils Absolute Auto 600 /uL (0-450); Eosinophils Percent Auto 8.5 % (2-4); Hematocrit 29.9 % (36-46); Lymphocytes Absolute Auto 900 /uL (1100-4500); Lymphocytes Percent Auto 11.9 % (25-40); Mean Corpuscular HGB Conc 33.5 % (30-36); Mean Corpuscular Volume 92.4 fL (80-100); Monocytes Absolute Auto 700 /uL (0-900); Neutrophils Absolute Auto 4900 /uL (1500-7000); Neutrophils Percent Auto 68.5 % (50-75); Platelet Count 118 X10^3/uL (150-400); Red Blood Cell Count 3.23 X10^6/uL (4.0-5.2); Red Cell Distribution Width 12.9 % (11.6-14.8); White Blood Cell Count 7.2 X10^3/uL (4.5-11.0)
[2024-02-23 18:42] LABS: BUN Creatinine Ratio 34.8 (6-22); Blood Urea Nitrogen 49 mg/dL (7-17); Calcium 8.9 mg/dL (8.4-10.2); Carbon Dioxide 23 mmol/L (22-32); Chloride 107 mmol/L (98-107); Estimated Glomerular Filt Rate 36 mL/min (>60); Glucose 111 mg/dL (80-110); HEMOLYSIS < 15 (0-50); Potassium 5.3 mmol/L (3.4-5.1); Sodium 137 mmol/L (137-145)
== END ==
PROVIDERS: Family Provider Family Medicine; PCP Family Medicine; Referring Provider Internal Medicine Cardiovascular Disease; Visit Provider Internal Medicine Cardiovascular Disease
DX: I27.81 Cor pulmonale (chronic) (principal)
CPT/HCPCS: 36415; 80048; 85025

== ENCOUNTER → 2024-03-02 14:08 | Outpatient (CLI) | payer MEDICARE, OTHER, SELFPAY ==
[2023-10-06 17:35] VITALS: BMI 17.9
[2024-03-02 15:10] LABS: BUN Creatinine Ratio 28.6 (6-22); Blood Urea Nitrogen 38 mg/dL (7-17); Calcium 8.8 mg/dL (8.4-10.2); Carbon Dioxide 26 mmol/L (22-32); Chloride 103 mmol/L (98-107); Estimated Glomerular Filt Rate 39 mL/min (>60); Glucose 90 mg/dL (80-110); HEMOLYSIS < 15 (0-50); Sodium 138 mmol/L (137-145)
== END ==
PROVIDERS: Family Provider Family Medicine; PCP Family Medicine; Referring Provider Internal Medicine Cardiovascular Disease; Visit Provider Internal Medicine Cardiovascular Disease
DX: I50.32 Chronic diastolic (congestive) heart failure (principal)
CPT/HCPCS: 36415; 80048

== ENCOUNTER → 2024-03-31 13:39 | Outpatient (CLI) | payer MEDICARE, OTHER, SELFPAY ==
[2023-10-06 17:35] VITALS: BMI 17.9
--- NOTE | 2024-03-31 13:41 | DI.RAD.S_ITS ---
PROCEDURE: XR THORACIC SPINE 3V INDICATIONS: COMPRESSION FRACTURE TECHNIQUE: 3 views of the thoracic spine were acquired. COMPARISON: [facility], CR, XR THORACIC SPINE 3V, 04/15/2023, 9:58. FINDINGS: Bones: Diffuse osseous demineralization limits sensitivity for a subtle nondisplaced fracture. Within these limitations, redemonstration of multiple compression fractures in the midthoracic spine (T7, T8 and T9) which appear similar to prior. No definite new fracture. 12 pairs of ribs are noted, and appear intact where visualized. Moderate to marked multilevel degenerative changes with osteophytosis, disc height loss and facet arthropathy. Exaggerated thoracic kyphosis and slight levoconvex curvature of the spine. Soft tissues: No paravertebral stripe thickening. Aortic valve replacement. Mitral valve clips. Left-sided pacer electrode terminates in expected position. Sternotomy wires. IMPRESSION: 1. Diffuse osseous demineralization limits sensitivity for a subtle nondisplaced fracture. Within these limitations, redemonstration of multiple compression fractures of the midthoracic spine which appears similar to prior. If there is high clinical suspicion for a new radiographically occult fracture, recommend cross-sectional imaging for further evaluation. 2. Moderate to marked multilevel degenerative changes of the spine with exaggerated thoracic kyphosis and slight levoconvex curvature. Dictated by: Chris Muniz M.D. on 03/31/2024 at 14:52 Approved by: Chris Muniz M.D. on 03/31/2024 at 14:58
--- NOTE | 2024-03-31 13:41 | DI.RAD.S_ITS ---
PROCEDURE: XR LUMBAR SPINE MIN 4V INDICATIONS: BACK PAIN TECHNIQUE: 5 views of the lumbar spine were acquired, including bilateral oblique views. COMPARISON: [facility], CR, XR LUMBAR SPINE MIN 4V, 04/15/2023, 9:58. FINDINGS: Bones: Marked diffuse osseous demineralization markedly limits evaluation for a nondisplaced fracture. Within these limitations, no definite fracture or suspicious lesion. Slight dextroconvex curvature of the lumbar spine. Mild to moderate multilevel degenerative changes with osteophytosis and disc height loss. Soft tissues: Overlying bowel gas pattern is normal. No suspicious soft tissue calcifications. Calcification of the abdominal aorta. Above average colonic stool burden. Oblique images: No pars defects. IMPRESSION: 1. Marked diffuse osseous demineralization limits sensitivity for a nondisplaced fracture. 2. Within these limitations, no definite fracture or suspicious lesion. If there is high clinical suspicion, recommend cross-sectional imaging for further evaluation. 3. Mild to moderate multilevel degenerative changes of the spine. Above average colonic stool burden suggestive of constipation. Dictated by: Chris Muniz M.D. on 03/31/2024 at 14:43 Approved by: Chris Muniz M.D. on 03/31/2024 at 14:51
== END ==
PROVIDERS: Family Provider Family Medicine; PCP Family Medicine; Referring Provider Physical Medicine & Rehabilitation; Visit Provider Physical Medicine & Rehabilitation
DX: S22.069A Unspecified fracture of T7-T8 vertebra, initial encounter for closed fracture (principal); S22.079A Unspecified fracture of T9-T10 vertebra, initial encounter for closed fracture; S22.000A Wedge compression fracture of unspecified thoracic vertebra, initial encounter for closed fracture; M81.0 Age-related osteoporosis without current pathological fracture; M47.814 Spondylosis without myelopathy or radiculopathy, thoracic region; M40.204 Unspecified kyphosis, thoracic region; M47.816 Spondylosis without myelopathy or radiculopathy, lumbar region
CPT/HCPCS: 72072; 72110

== ENCOUNTER → 2024-04-07 13:34 | Outpatient (CLI) | payer MEDICARE, OTHER, SELFPAY ==
[2023-10-06 17:35] VITALS: BMI 17.9
[2024-04-07 14:46] LABS: BUN Creatinine Ratio 32.3 (6-22); Blood Urea Nitrogen 53 mg/dL (7-17); Calcium 9.4 mg/dL (8.4-10.2); Carbon Dioxide 28 mmol/L (22-32); Chloride 100 mmol/L (98-107); Estimated Glomerular Filt Rate 30 mL/min (>60); Glucose 119 mg/dL (80-110); HEMOLYSIS < 15 (0-50); Potassium 4.5 mmol/L (3.4-5.1); Sodium 138 mmol/L (137-145)
== END ==
PROVIDERS: Family Provider Family Medicine; PCP Family Medicine; Referring Provider Internal Medicine Cardiovascular Disease; Visit Provider Internal Medicine Cardiovascular Disease
DX: I50.32 Chronic diastolic (congestive) heart failure (principal)
CPT/HCPCS: 36415; 80048

== ENCOUNTER → 2024-04-22 13:11 | Outpatient (CLI) | payer MEDICARE, OTHER, SELFPAY ==
[2023-10-06 17:35] VITALS: BMI 17.9
[2024-04-22 15:48] LABS: BUN Creatinine Ratio 29.3 (6-22); Blood Urea Nitrogen 41 mg/dL (7-17); Calcium 9.8 mg/dL (8.4-10.2); Carbon Dioxide 28 mmol/L (22-32); Chloride 102 mmol/L (98-107); Estimated Glomerular Filt Rate 37 mL/min (>60); Glucose 132 mg/dL (80-110); HEMOLYSIS < 15 (0-50); Sodium 138 mmol/L (137-145)
[2024-04-22 15:55] LABS: Potassium 5.6 mmol/L (3.4-5.1)
== END ==
LOC: LAB 13:13
PROVIDERS: Family Provider Family Medicine; PCP Family Medicine; Referring Provider Internal Medicine Cardiovascular Disease; Visit Provider Internal Medicine Cardiovascular Disease
DX: I50.32 Chronic diastolic (congestive) heart failure (principal)
CPT/HCPCS: 36415; 80048

== ENCOUNTER → 2024-04-29 09:31 | Outpatient (CLI) | payer MEDICARE, OTHER, SELFPAY ==
[2023-10-06 17:35] VITALS: BMI 17.9
[2024-04-29 11:08] LABS: BUN Creatinine Ratio 33.3 (6-22); Blood Urea Nitrogen 41 mg/dL (7-17); Calcium 9.8 mg/dL (8.4-10.2); Carbon Dioxide 29 mmol/L (22-32); Chloride 102 mmol/L (98-107); Estimated Glomerular Filt Rate 43 mL/min (>60); Glucose 79 mg/dL (80-110); HEMOLYSIS < 15 (0-50); Potassium 4.7 mmol/L (3.4-5.1); Sodium 139 mmol/L (137-145)
== END ==
PROVIDERS: Family Provider Family Medicine; PCP Family Medicine; Referring Provider Internal Medicine Cardiovascular Disease; Visit Provider Internal Medicine Cardiovascular Disease
DX: I50.32 Chronic diastolic (congestive) heart failure (principal)
CPT/HCPCS: 36415; 80048

== ENCOUNTER → 2024-07-07 13:53 | Outpatient (CLI) | payer MEDICARE, OTHER, SELFPAY ==
[2023-10-06 17:35] VITALS: BMI 17.9
[2024-07-07 15:41] LABS: BUN Creatinine Ratio 32.3 (6-22); Blood Urea Nitrogen 41 mg/dL (7-17); Calcium 9.9 mg/dL (8.4-10.2); Carbon Dioxide 31 mmol/L (22-32); Chloride 100 mmol/L (98-107); Estimated Glomerular Filt Rate 41 mL/min (>60); Glucose 105 mg/dL (80-110); HEMOLYSIS < 15 (0-50); Potassium 4.4 mmol/L (3.4-5.1); Sodium 140 mmol/L (137-145)
== END ==
PROVIDERS: Family Provider Family Medicine; PCP Family Medicine; Referring Provider Internal Medicine Cardiovascular Disease; Visit Provider Internal Medicine Cardiovascular Disease
DX: I27.81 Cor pulmonale (chronic) (principal)
CPT/HCPCS: 36415; 80048

== ENCOUNTER 2024-10-21 12:44 | Emergency (ER) | payer MEDICARE, OTHER, SELFPAY ==
[2023-10-06 17:35] VITALS: BMI 17.9
[2024-10-21] VITALS (11 sets, daily range): BP systolic 105–140; BP diastolic 57–75; PULSE 69–79; RESP 15–42; TEMP 37; O2SAT 84–96; BMI 20.5
--- NOTE | 2024-10-21 13:06 | DI.RAD.S_ITS ---
PROCEDURE: XR CHEST 1V INDICATIONS: Shortness of breath TECHNIQUE: One view of the chest was acquired. COMPARISON: [facility], CR, XR CHEST 1V, 03/31/2022, 19:22. [facility], CR, XR CHEST 2V, 03/05/2023, 8:38. FINDINGS: Surgical changes and devices: Pacemaker, midline sternotomy, percutaneous aortic valve. Lungs and pleura: Lungs are clear. Chronic interstitial prominence. No pleural effusions or pneumothorax. Mediastinum: Mediastinal contours appear normal. Stable cardiomegaly. Bones and chest wall: No suspicious bony lesions. Chronic nonunited proximal humeral fracture. Overlying soft tissues appear unremarkable. IMPRESSION: 1. Stable cardiomegaly. 2. Chronic interstitial prominence. 3. Nonunited chronic right proximal humeral fracture. Dictated by: Jerry Wick M.D. on 10/21/2024 at 13:38 Approved by: Jerry Wick M.D. on 10/21/2024 at 13:41
--- NOTE | 2024-10-21 13:23 | EKG_ITS ---
[address] [address] Test Date: 2024-10-21 Pat Name: Celena Wells Department: Room: Gender: Female Branch Service Associate: EDNA : 1935 Requested By: Order Number: [id number] Reading MD: Grant Bryan Measurements Intervals [place] Rate: 70 P: AR: QRS: -65 QRSD: 168 T: 98 QT: 474 QTc: 511 Interpretive Statements Ventricular-paced rhythm Electronically Signed On 10-24-2024 8:31:53 PDT by Grant Bryan
[2024-10-21 13:31] LABS: Add Manual Diff / Slide Review NO; Basophils Absolute Auto 100 /uL (0-100); Basophils Percent Auto 1.1 % (0-2); Eosinophils Absolute Auto 500 /uL (0-450); Eosinophils Percent Auto 5.1 % (2-4); Hematocrit 32.6 % (36-46); Hemoglobin 10.7 g/dL (12.0-16.0); Lymphocytes Absolute Auto 800 /uL (1100-4500); Lymphocytes Percent Auto 9.1 % (25-40); Mean Corpuscular Hemoglobin 30.4 PG (26-34); Mean Corpuscular Volume 92.1 fL (80-100); Monocytes Absolute Auto 700 /uL (0-900); Monocytes Percent Auto 7.4 % (3-14); Neutrophils Absolute Auto 7100 /uL (1500-7000); Neutrophils Percent Auto 77.3 % (50-75); Platelet Count 206 X10^3/uL (150-400); Red Blood Cell Count 3.54 X10^6/uL (4.0-5.2); Red Cell Distribution Width 13.9 % (11.6-14.8); White Blood Cell Count 9.1 X10^3/uL (4.5-11.0)
[2024-10-21 13:36] LABS: Prothrombin Time 11.6 SECONDS (9.4-12.5)
[2024-10-21 13:40] LABS: Lactate (Lactic Acid) 1.5 mmol/L (0.7-2.1)
[2024-10-21 13:52] LABS: NT-proBNP (BNP-Adult 18+) 4880 pg/mL (<450); Troponin I 0.029 ng/mL (0.01-0.034)
--- NOTE | 2024-10-21 15:34 | ED_ITS ---
HPI - General Adult General Chief complaint: Shortness of Breath/Dyspnea Stated complaint: Sob, rectal bleeding t-4 Time Seen by Provider: 10/21/24 13:07 Source: patient Mode of arrival: Ambulatory History of Present Illness HPI narrative: 89-year-old woman with a history of mild rectal bleeding followed by Dr. Herrera, congestive heart failure, cardiomyopathy, atrial fibrillation, post tricuspid valve repair, post pacemaker placement currently on apixaban followed by Dr. Lerma with history of baseline dyspnea.. For her heart failure she is currently on torsemide every other day 20 mg as well as Entresto 2426 mg twice daily. Patient notes that she sent a portal message to her primary care physician indicating that she was slightly more short of breath today. She did take her torsemide this morning. She was instructed to come to the ER for further evaluation. She has a very pragmatic view of her congestive heart failure management and understands that this is a management issue. She has not having any chest pain, palpitation she does note that she has slightly more orthopnea slight increase in her lower extremity edema and her exertional dyspnea seems to be a bit worse than her baseline. No recent fever cough chills no nausea vomiting or diarrhea Related Data Home Medications Medication Instructions Recorded Confirmed cholecalciferol (vitamin D3) 125 125 mcg PO DAILY 01/20/23 04/06/24 mcg (5,000 unit) capsule ascorbic acid (vitamin C) 1,000 mg 1,200 mg PO DAILY 01/21/23 04/06/24 tablet latanoprost 0.005 % eye drops 1 drp EYE-BOTH DAILY 02/05/23 04/06/24 torsemide 10 mg tablet 10 mg PO DAILY 10/06/23 04/06/24 losartan 25 mg tablet 25 mg PO DAILY 04/06/24 04/06/24 aspirin 81 mg tablet,delayed 81 mg PO DAILY 09/05/24 09/05/24 release Previous Rx's Medication Instructions Recorded Disabled Parking #1 ea 09/08/22 lidocaine 3 %-hydrocortisone 0.5 % 1 applic NE BEDTIME PRN 09/14/23 rectal cream hemorrhoids #98 grams calcitonin (salmon) 200 1 spray intranasal (ALT) DAILY 04/06/24 unit/actuation nasal spray sacral fx 3 months #3.7 mL levothyroxine 50 mcg tablet 50 mcg PO DAILY #90 tabs 05/09/24 diltiazem HCl 180 mg 180 mg PO DAILY #180 caps 05/16/24 capsule,extended release 24 hr (Cartia XT) acetaminophen 300 mg-codeine 30 mg 1 tab PO DAILY PRN Pain #30 tabs 09/28/24 tablet Allergies Allergy/AdvReac Type Severity Reaction Status Date / Time No Known Drug Allergies Allergy Verified 05/05/24 10:47 Review of Systems Review of Systems Narrative: Pertinent positive and negative findings as per HPI Patient History Medical History T8 vertebral fracture History of cardioversion Pacemaker (10/23/21) History of COVID-19 (05/19/21) Compression fracture of body of thoracic vertebra Dyspnea on exertion T9 vertebral fracture T7 vertebral fracture Back pain Somatic dysfunction of thoracic region Somatic dysfunction of rib Somatic dysfunction of upper extremity Somatic dysfunction of pelvic region Somatic dysfunction of lower extremity Sacral region somatic dysfunction Lumbar region somatic dysfunction Cranial somatic dysfunction Cervical (neck) region somatic dysfunction Somatic dysfunction of abdominal region Presence of cardiac pacemaker COPD exacerbation Abdominal ascites Elevated TSH Urinary leakage Urinary incontinence Hyperlipidemia Osteoporosis (~1989) Foot deformities, congenital Aortic valve stenosis (11/09/13) Surgical History History of cardiac radiofrequency ablation (10/29/21) Hx of bilateral cataract extraction (2006) Personal history of tricuspid valve disease History of aortic valve replacement with bioprosthetic valve (07/18/16) History of carpal tunnel release Normal colonoscopy (2005) History of tonsillectomy Family History Brother Hyperlipidemia Hypertension Sister Age: 77 Ovarian cancer Father No problems noted. Mother No problems noted. Other Breast cancer CAD (coronary artery disease) Colorectal cancer Diabetes mellitus Social History marital status: details: 62 yo sonSurya, living with her (11/30/23) number of children: 3 household members: other lives independently: Yes caregiver/support person: Yes housing: house occupational status: other Smoking Status: Never smoker alcohol intake: current Smoking Status: Never smoker alcohol intake frequency: holidays/special occasions only Exam Initial Vital Signs Initial Vital Signs: Vital Signs Temperature 98.6 F 10/21/24 12:47 Pulse Rate 79 10/21/24 12:47 Respiratory Rate 18 10/21/24 12:47 Blood Pressure 112/75 10/21/24 12:47 Pulse Oximetry 95 10/21/24 12:47 Oxygen Delivery Method Room Air 10/21/24 12:47 General: Frail but otherwise healthy-appearing delightful older woman able to cooperate fully with history physical and exam HEENT: Moist mucous membranes, normal sclera with reactive pupils, Neck: Subtle JVD, Respiratory: Lungs are free of wheeze, mild bibasilar crackles Cardiac: Regular rate and rhythm no murmurs no bruits Abdomen: Soft, nontender, good bowel tones, no flank pain Skin: Warm and dry, no rashes Neurologic: Grossly neurologically intact with no obvious asymmetries or abnormalities Extremities: 2+ lower extremity edema Psych: Cooperative, appropriate insight and affect Course Orders Ordered: ED Orders 10/21/24 13:06 XR chest 1V Stat EKG-12 Lead Stat Measure peak expiratory flow ONCE RT Consult Eval and Treat NOW 10/21/24 13:08 Urinalysis and Microscopic Stat 10/21/24 13:20 CMP [Comprehensive Metabolic Panel] Stat Complete Blood Count AUTO DIFF Stat Lactate (Lactic Acid) Stat NT-proBNP (BNP-Adult 18+) Stat Prothrombin Time INR Stat Troponin I Stat Discontinued Medications Furosemide 80 mg/ Sodium (Chloride) 58 mls @ 116 mls/hr IV NOW ONE Stop: 10/21/24 15:41 Last Infusion: 10/21/24 17:01 Dose: Infused Documented By: Admin: 10/21/24 15:55 Dose: 116 mls/hr Documented By: Vital Signs Vital signs: Vital Signs - 8 hr 10/21/24 12:47 Temperature 98.6 F Pulse Rate 79 Respiratory Rate 18 Blood Pressure 112/75 Pulse Oximetry 95 Oxygen Delivery Method Room Air Medical Decision Making Lab Data 10/21/24 13:20 10/21/24 13:20 Labs: Lab Results 10/21/24 10/21/24 10/21/24 Range/Units 13:20 13:20 13:20 WBC 9.1 (4.5-11.0) X10^3/uL RBC 3.54 L (4.0-5.2) X10^6/uL Hgb 10.7 L (12.0-16.0) g/dL Hct 32.6 L (36-46) % MCV 92.1 (80-100) fL MCH 30.4 (26-34) PG MCHC 33.0 (30-36) % RDW 13.9 (11.6-14.8) % Plt Count 206 (150-400) X10^3/uL Neut % (Auto) 77.3 H (50-75) % Lymph % (Auto) 9.1 L (25-40) % [place] % (Auto) 7.4 (3-14) % Eos % (Auto) 5.1 H (2-4) % Baso % (Auto) 1.1 (0-2) % Neut # (Auto) 7100 H (4873-8055) /uL Lymph # (Auto) 800 L (7912-5015) /uL [place] # (Auto) 700 (0-900) /uL Eos # (Auto) 500 H (0-450) /uL Baso # (Auto) 100 (0-100) /uL PT 11.6 (9.4-12.5) SECONDS INR 1.0 (0.9-1.3) Sodium Cancelled 140 Potassium Cancelled 4.6 Chloride Cancelled Carbon Dioxide BUN Creatinine Estimated GFR BUN/Creatinine Ratio Glucose Lactate (0.7-2.1) mmol/L Calcium Total Bilirubin AST ALT Alkaline Phosphatase Troponin I (0.01-0.034) ng/mL NT-Pro-B Natriuret Pep (<450) pg/mL Total Protein Albumin Globulin Albumin/Globulin Ratio 10/21/24 10/21/24 10/21/24 Range/Units 13:20 13:20 13:20 WBC (4.5-11.0) X10^3/uL RBC (4.0-5.2) X10^6/uL Hgb (12.0-16.0) g/dL Hct (36-46) % MCV (80-100) fL MCH (26-34) PG MCHC (30-36) % RDW (11.6-14.8) % Plt Count (150-400) X10^3/uL Neut % (Auto) (50-75) % Lymph % (Auto) (25-40) % [place] % (Auto) (3-14) % Eos % (Auto) (2-4) % Baso % (Auto) (0-2) % Neut # (Auto) (8749-1373) /uL Lymph # (Auto) (6596-9658) /uL [place] # (Auto) (0-900) /uL Eos # (Auto) (0-450) /uL Baso # (Auto) (0-100) /uL PT (9.4-12.5) SECONDS INR (0.9-1.3) Sodium Potassium Chloride 105 Carbon Dioxide Cancelled 24 BUN Cancelled 33 H Creatinine Cancelled Estimated GFR BUN/Creatinine Ratio Glucose Lactate (0.7-2.1) mmol/L Calcium Total Bilirubin AST ALT Alkaline Phosphatase Troponin I (0.01-0.034) ng/mL NT-Pro-B Natriuret Pep (<450) pg/mL Total Protein Albumin Globulin Albumin/Globulin Ratio 10/21/24 10/21/24 10/21/24 Range/Units 13:20 13:20 13:20 WBC (4.5-11.0) X10^3/uL RBC (4.0-5.2) X10^6/uL Hgb (12.0-16.0) g/dL Hct (36-46) % MCV (80-100) fL MCH (26-34) PG MCHC (30-36) % RDW (11.6-14.8) % Plt Count (150-400) X10^3/uL Neut % (Auto) (50-75) % Lymph % (Auto) (25-40) % [place] % (Auto) (3-14) % Eos % (Auto) (2-4) % Baso % (Auto) (0-2) % Neut # (Auto) (7809-8841) /uL Lymph # (Auto) (0484-1252) /uL [place] # (Auto) (0-900) /uL Eos # (Auto) (0-450) /uL Baso # (Auto) (0-100) /uL PT (9.4-12.5) SECONDS INR (0.9-1.3) Sodium Potassium Chloride Carbon Dioxide BUN Creatinine 1.11 H Estimated GFR Cancelled 48 L BUN/Creatinine Ratio Cancelled 29.7 H Glucose Cancelled Lactate (0.7-2.1) mmol/L Calcium Total Bilirubin AST ALT Alkaline Phosphatase Troponin I (0.01-0.034) ng/mL NT-Pro-B Natriuret Pep (<450) pg/mL Total Protein Albumin Globulin Albumin/Globulin Ratio 10/21/24 10/21/24 10/21/24 Range/Units 13:20 13:20 13:20 WBC (4.5-11.0) X10^3/uL RBC (4.0-5.2) X10^6/uL Hgb (12.0-16.0) g/dL Hct (36-46) % MCV (80-100) fL MCH (26-34) PG MCHC (30-36) % RDW (11.6-14.8) % Plt Count (150-400) X10^3/uL Neut % (Auto) (50-75) % Lymph % (Auto) (25-40) % [place] % (Auto) (3-14) % Eos % (Auto) (2-4) % Baso % (Auto) (0-2) % Neut # (Auto) (1917-7766) /uL Lymph # (Auto) (2682-0000) /uL [place] # (Auto) (0-900) /uL Eos # (Auto) (0-450) /uL Baso # (Auto) (0-100) /uL PT (9.4-12.5) SECONDS INR (0.9-1.3) Sodium Potassium Chloride Carbon Dioxide BUN Creatinine Estimated GFR BUN/Creatinine Ratio Glucose 138 H Lactate 1.5 (0.7-2.1) mmol/L Calcium Cancelled 8.5 Total Bilirubin Cancelled 0.8 AST Cancelled ALT Alkaline Phosphatase Troponin I (0.01-0.034) ng/mL NT-Pro-B Natriuret Pep (<450) pg/mL Total Protein Albumin Globulin Albumin/Globulin Ratio 10/21/24 10/21/24 10/21/24 Range/Units 13:20 13:20 13:20 WBC (4.5-11.0) X10^3/uL RBC (4.0-5.2) X10^6/uL Hgb (12.0-16.0) g/dL Hct (36-46) % MCV (80-100) fL MCH (26-34) PG MCHC (30-36) % RDW (11.6-14.8) % Plt Count (150-400) X10^3/uL Neut % (Auto) (50-75) % Lymph % (Auto) (25-40) % [place] % (Auto) (3-14) % Eos % (Auto) (2-4) % Baso % (Auto) (0-2) % Neut # (Auto) (1330-3176) /uL Lymph # (Auto) (9520-9582) /uL [place] # (Auto) (0-900) /uL Eos # (Auto) (0-450) /uL Baso # (Auto) (0-100) /uL PT (9.4-12.5) SECONDS INR (0.9-1.3) Sodium Potassium Chloride Carbon Dioxide BUN Creatinine Estimated GFR BUN/Creatinine Ratio Glucose Lactate (0.7-2.1) mmol/L Calcium Total Bilirubin AST 55 H ALT Cancelled 32 Alkaline Phosphatase Cancelled 66 Troponin I 0.029 (0.01-0.034) ng/mL NT-Pro-B Natriuret Pep 4880 H (<450) pg/mL Total Protein Cancelled Albumin Globulin Albumin/Globulin Ratio 10/21/24 10/21/24 10/21/24 Range/Units 13:20 13:20 13:20 WBC (4.5-11.0) X10^3/uL RBC (4.0-5.2) X10^6/uL Hgb (12.0-16.0) g/dL Hct (36-46) % MCV (80-100) fL MCH (26-34) PG MCHC (30-36) % RDW (11.6-14.8) % Plt Count (150-400) X10^3/uL Neut % (Auto) (50-75) % Lymph % (Auto) (25-40) % [place] % (Auto) (3-14) % Eos % (Auto) (2-4) % Baso % (Auto) (0-2) % Neut # (Auto) (1328-6123) /uL Lymph # (Auto) (8520-2527) /uL [place] # (Auto) (0-900) /uL Eos # (Auto) (0-450) /uL Baso # (Auto) (0-100) /uL PT (9.4-12.5) SECONDS INR (0.9-1.3) Sodium Potassium Chloride Carbon Dioxide BUN Creatinine Estimated GFR BUN/Creatinine Ratio Glucose Lactate (0.7-2.1) mmol/L Calcium Total Bilirubin AST ALT Alkaline Phosphatase Troponin I (0.01-0.034) ng/mL NT-Pro-B Natriuret Pep (<450) pg/mL Total Protein 7.6 Albumin Cancelled 4.4 Globulin Cancelled 3.2 Albumin/Globulin Ratio Cancelled 10/21/24 Range/Units 13:20 WBC (4.5-11.0) X10^3/uL RBC (4.0-5.2) X10^6/uL Hgb (12.0-16.0) g/dL Hct (36-46) % MCV (80-100) fL MCH (26-34) PG MCHC (30-36) % RDW (11.6-14.8) % Plt Count (150-400) X10^3/uL Neut % (Auto) (50-75) % Lymph % (Auto) (25-40) % [place] % (Auto) (3-14) % Eos % (Auto) (2-4) % Baso % (Auto) (0-2) % Neut # (Auto) (5551-9780) /uL Lymph # (Auto) (3002-3564) /uL [place] # (Auto) (0-900) /uL Eos # (Auto) (0-450) /uL Baso # (Auto) (0-100) /uL PT (9.4-12.5) SECONDS INR (0.9-1.3) Sodium Potassium Chloride Carbon Dioxide BUN Creatinine Estimated GFR BUN/Creatinine Ratio Glucose Lactate (0.7-2.1) mmol/L Calcium Total Bilirubin AST ALT Alkaline Phosphatase Troponin I (0.01-0.034) ng/mL NT-Pro-B Natriuret Pep (<450) pg/mL Total Protein Albumin Globulin Albumin/Globulin Ratio 1.4 MDM Narrative Medical decision making narrative: CC: Slight increase in her chronic exertional dyspnea Complicating co-morbidities: Congestive heart failure, pacemaker, hypertension Data collected from: patient Medical records reviewed: Recent Cardiology and primary care notes reviewed Differential considered: Exacerbation of her congestive heart failure, viral syndrome, bacterial pneumonia, acute coronary syndrome Exam documented above, pertinent findings include: Patient actually states she is currently at her baseline while sitting in the emergency department. She has mild JVD, bilateral lower extremity edema and basilar crackles all consistent with mild volume overload Lab Test results independently reviewed as above. Pertinent findings: CBC is stable with no evidence of infection. H&H is actually increased from previous Troponin is undetectable BNP is over 4000 which is almost twice what it was with her last check Chemistries are reassuring. No sign of acute renal failure, potassium is appropriate. Independently reviewed EKG: Paced at a rate of 70 Imaging studies independently reviewed: Mild interstitial findings without significant cardiomegaly, infiltrates or effusion Treatments: 80 mg of IV Lasix Discussion: 89-year-old woman with a history of congestive heart failure currently taking her torsemide every other day. Over the last couple of weeks she has had increasing orthopnea and exertional dyspnea and her workup today suggest she does have mild exacerbation of her chronic congestive heart failure with no indication of acute coronary syndrome, troponin leak or hypoxia. We will ask her to increase her torsemide to daily for at least the next week. Last going to follow up with the either her primary care physician or pediatric neuropsychologist following that. Currently no indication for hospitalization, need for additional imaging or further workup. She is safe for discharge. Her primary care physician was updated with ER visit events and discharge. Discharge Plan Departure Patient Disposition: Home Clinical Impression: Acute exacerbation of chronic heart failure Instructions: DI for Heart Failure Activity Restrictions/Additional Instructions: Thank you for coming in today As we discussed, your heart failure is a chronic management issue. Currently you need a bit more diuretic because you were holding onto extra fluid. This extra fluid is contributing to the shortness of breath that you are experiencing with activity You were given IV diuretic, Lasix, in the emergency department to help get some additional fluid out this evening. Your oxygen levels are appropriate on room air and you do not need to be admitted to the hospital. There was no evidence of heart attack, obvious bleeding your severe anemia. I would recommend that you increase your torsemide to daily rather than every other day for at least the next week if not 2 weeks or until you feel like your breathing has improved I would encourage you to schedule follow up appointment with either Dr. Rangel or Dr. Lerma If you find that you are getting worse or develop any new symptoms, please feel free to return to the emergency department for further evaluation. Prescriptions: No Action latanoprost 0.005 % drops 1 drp EYE-BOTH DAILY (DME) Disabled Parking See Rx Instructions .ROUTE .MEDSUPPLY Qty: 1 0RF Rx Instructions: I find this patient to be medically disabled and qualified for Disabled Parking as indicated, and signed, on the Accompanying Disabled Parking Application for Individuals cholecalciferol (vitamin D3) 125 mcg (5,000 unit) capsule 125 mcg PO DAILY ascorbic acid (vitamin C) 1,000 mg tablet 1,200 mg PO DAILY lidocaine HCl-hydrocortison ac 3-0.5 % cream 1 applic NE BEDTIME PRN (Reason: hemorrhoids) Qty: 98 0RF levothyroxine 50 mcg tablet 50 mcg PO DAILY Qty: 90 3RF diltiazem HCl [Cartia XT] 180 mg capsule,extended release 24hr 180 mg PO DAILY Qty: 180 1RF acetaminophen-codeine 300-30 mg tablet 1 tab PO DAILY PRN (Reason: Pain) Qty: 30 0RF aspirin 81 mg tablet,delayed release (DR/EC) 81 mg PO DAILY torsemide 10 mg tablet 10 mg PO DAILY losartan 25 mg tablet 25 mg PO DAILY calcitonin (salmon) 200 unit/actuation spray,non-aerosol 1 spray intranasal (ALT) DAILY 90 Days Qty: 3.7 2RF Rx Instructions: sacral fx Referrals: Jonn Rangel MD [Primary Care Provider] - Stand Alone Forms: Patient Portal/API/Survey
[2024-10-21] MEDS: FUROSEMIDE 80 MG in SODIUM CHLORIDE 0.9% 50 ML 116 MG IV (15:55)
[2024-10-21 15:58] LABS: Alanine Aminotransferase 32 IU/L (<35); Albumin 4.4 g/dL (3.5-5.0); Albumin Globulin Ratio 1.4 (1.0-2.8); Alkaline Phosphatase 66 U/L (38-126); Aspartate Aminotransferase 55 IU/L (14-36); BUN Creatinine Ratio 29.7 (6-22); Bilirubin Total 0.8 mg/dL (0.2-1.3); Blood Urea Nitrogen 33 mg/dL (7-17); Calcium 8.5 mg/dL (8.4-10.2); Carbon Dioxide 24 mmol/L (22-32); Chloride 105 mmol/L (98-107); Estimated Glomerular Filt Rate 48 mL/min (>60); Globulin 3.2 g/dL (1.7-4.1); Glucose 138 mg/dL (80-110); HEMOLYSIS 15 (0-50); Potassium 4.6 mmol/L (3.4-5.1); Sodium 140 mmol/L (137-145); Total Protein 7.6 g/dL (6.3-8.2)
== END 2024-10-21 17:30 | disposition home or self-care (01) ==
PROVIDERS: Emergency Provider Emergency Medicine; Family Provider Family Medicine; PCP Family Medicine
DX: I50.9 Heart failure, unspecified (principal); Z95.0 Presence of cardiac pacemaker; R06.02 Shortness of breath; I42.9 Cardiomyopathy, unspecified; Z79.01 Long term (current) use of anticoagulants; I10 Essential (primary) hypertension
CPT/HCPCS: 36415; 71045; 80053; 83605; 83880; 84484; 85025; 85610; 93005; 96365; 99284; J1940

== ENCOUNTER → 2024-11-16 11:40 | Outpatient (CLI) | payer MEDICARE, OTHER, SELFPAY ==
[2023-10-06 17:35] VITALS: BMI 17.9
[2024-11-16 12:26] LABS: Add Manual Diff / Slide Review NO; Basophils Absolute Auto 100 /uL (0-100); Basophils Percent Auto 0.7 % (0-2); Eosinophils Absolute Auto 200 /uL (0-450); Eosinophils Percent Auto 2.3 % (2-4); Hematocrit 33.7 % (36-46); Hemoglobin 11.1 g/dL (12.0-16.0); Lymphocytes Absolute Auto 600 /uL (1100-4500); Lymphocytes Percent Auto 7.2 % (25-40); Mean Corpuscular HGB Conc 32.9 % (30-36); Mean Corpuscular Hemoglobin 30.2 PG (26-34); Monocytes Absolute Auto 900 /uL (0-900); Monocytes Percent Auto 9.7 % (3-14); Neutrophils Absolute Auto 7200 /uL (1500-7000); Neutrophils Percent Auto 80.1 % (50-75); Platelet Count 167 X10^3/uL (150-400); Red Blood Cell Count 3.67 X10^6/uL (4.0-5.2); Red Cell Distribution Width 13.6 % (11.6-14.8)
[2024-11-16 12:30] LABS: HEMOLYSIS < 15 (0-50); Iron 48 ug/dL (37-170)
[2024-11-16 12:32] LABS: Alanine Aminotransferase 44 IU/L (<35); Albumin 4.3 g/dL (3.5-5.0); Albumin Globulin Ratio 1.4 (1.0-2.8); Alkaline Phosphatase 78 U/L (38-126); Aspartate Aminotransferase 49 IU/L (14-36); BUN Creatinine Ratio 28.1 (6-22); Bilirubin Total 1.2 mg/dL (0.2-1.3); Blood Urea Nitrogen 34 mg/dL (7-17); Calcium 9.8 mg/dL (8.4-10.2); Carbon Dioxide 31 mmol/L (22-32); Chloride 98 mmol/L (98-107); Estimated Glomerular Filt Rate 43 mL/min (>60); Globulin 3.1 g/dL (1.7-4.1); Glucose 98 mg/dL (80-110); HEMOLYSIS < 15 (0-50); Potassium 3.5 mmol/L (3.4-5.1); Sodium 139 mmol/L (137-145); Total Protein 7.4 g/dL (6.3-8.2)
[2024-11-16 12:41] LABS: Percent Iron Saturation 12 % (15-50); Total Iron Binding Capacity 403 ug/dL (265-497); Transferrin 327 mg/dL (206-381)
[2024-11-16 13:04] LABS: TSH w/ Reflex to FT4 1.22 uIU/mL (0.47-4.68)
[2024-11-16 13:07] LABS: Ferritin 42 ng/mL (11-264)
[2024-11-16 13:41] LABS: Folate > 20.0 ng/mL (2.76-20.0); Vitamin B12 > 1000 pg/mL (239-931)
== END ==
PROVIDERS: Family Provider Family Medicine; PCP Family Medicine; Referring Provider Family Medicine; Visit Provider Family Medicine
DX: I50.9 Heart failure, unspecified (principal); I42.9 Cardiomyopathy, unspecified; S22.069A Unspecified fracture of T7-T8 vertebra, initial encounter for closed fracture; I50.30 Unspecified diastolic (congestive) heart failure; I27.20 Pulmonary hypertension, unspecified; I48.91 Unspecified atrial fibrillation; D64.9 Anemia, unspecified
CPT/HCPCS: 36415; 80053; 82607; 82728; 82746; 83540; 83550; 84443; 85025

== ENCOUNTER 2025-01-10 17:41 | Emergency (ER) | payer MEDICARE, OTHER, SELFPAY ==
[2023-10-06 17:35] VITALS: BMI 17.9
[2025-01-10 17:46] VITALS: BP 136/63; PULSE 70; RESP 18; TEMP 37.1; O2SAT 98; BMI 20.1
--- NOTE | 2025-01-10 18:09 | DI.CT.S_ITS ---
PROCEDURE: CT CHEST WO CON INDICATIONS: fall/right posterior ribs pain TECHNIQUE: Noncontrast 5 mm thick sections acquired from the pulmonary apices to the posterior costophrenic angles. 1 mm lung window, 5 mm thick coronal and sagittal and 7 mm axial MIP reformats were then acquired. For radiation dose reduction, the following was used: automated exposure control, adjustment of mA and/or kV according to patient size. COMPARISON: [facility], CT, CT CHEST WO CON, 01/17/2022, 9:38. FINDINGS: Image quality: Diagnostic. Lower Neck: No enlarged lymph nodes. Thyroid: No thyroid nodules which require sonographic follow up, per consensus guidelines. Axillae: No enlarged lymph nodes. Chest Wall: Unremarkable. Bones: Status post median sternotomy. Exaggerated kyphosis of the thoracic spine with redemonstration of multiple compression deformities in the midthoracic vertebral spine. No acute vertebral body compression fracture identified. No acute displaced rib fracture visualized.. Lungs and Pleura: No pneumothorax or pleural effusions. No consolidation or suspicious nodules. Heart: Heart size is enlarged. No pericardial effusion. Aortic and mitral valve O plasty. Thoracic Vessels: The aorta and pulmonary arteries demonstrate normal size. Mediastinum and Fatmata: No enlarged lymph nodes. Esophagus: No wall thickening. No hiatal hernia. Upper Abdomen: Visualized upper abdomen solid organs and bowel loops appear normal. IMPRESSION: No acute displaced rib fracture as clinically queried. Chronic midthoracic compression deformities. No acute vertebral body compression fracture. Cardiomegaly. Approved by: Caryn Carmichael M.D.,Ph.D. on 01/10/2025 at 19:45
--- NOTE | 2025-01-10 20:05 | ED_ITS ---
HPI - Back Pain/Injury General Chief Complaint: Back Pain/Injury Stated Complaint: extreme back pain - mid back Time Seen by Provider: 01/10/25 20:04 Source: patient and family History of Present Illness HPI Narrative: 89-year-old female past medical history of hypertension, CHF, hypothyroidism, AFib with pacemaker not on any anticoagulation presenting for right-sided rib pain, she states that she had a mechanical trip and fall a proximally 2 nights ago, states that she did not have any syncopal or presyncopal symptoms no head strike no LOC, states that the pain is worse when she takes deep breath therefore decided come into the ED for further evaluation treatment. States that she was taking some Tylenol with codeine to help with the pain but did fact that symptoms persisted and wanted to be evaluated. Related Data Home Medications Medication Instructions Recorded Confirmed cholecalciferol (vitamin D3) 125 125 mcg PO DAILY 01/20/23 12/20/24 mcg (5,000 unit) capsule ascorbic acid (vitamin C) 1,000 mg 1,200 mg PO DAILY 01/21/23 12/20/24 tablet latanoprost 0.005 % eye drops 1 drp EYE-BOTH DAILY 02/05/23 12/20/24 torsemide 10 mg tablet 10 mg PO DAILY 10/06/23 12/20/24 losartan 25 mg tablet 25 mg PO DAILY 04/06/24 12/20/24 aspirin 81 mg tablet,delayed 81 mg PO DAILY 09/05/24 12/20/24 release Previous Rx's Medication Instructions Recorded Disabled Parking #1 ea 09/08/22 lidocaine 3 %-hydrocortisone 0.5 % 1 applic RI BEDTIME PRN 09/14/23 rectal cream hemorrhoids #98 grams calcitonin (salmon) 200 1 spray intranasal (ALT) DAILY 04/06/24 unit/actuation nasal spray sacral fx 3 months #3.7 mL levothyroxine 50 mcg tablet 50 mcg PO DAILY #90 tabs 05/09/24 diltiazem HCl 180 mg 180 mg PO DAILY #180 caps 05/16/24 capsule,extended release 24 hr (Cartia XT) acetaminophen 300 mg-codeine 30 mg 1 tab PO BID PRN Pain #60 tabs 12/20/24 tablet lidocaine 5 % topical patch 1 patch topical DAILY #15 ea 01/10/25 methocarbamol 500 mg tablet 500 mg PO Q8H 5 days #15 tabs 05/27/25 Allergies Allergy/AdvReac Type Severity Reaction Status Date / Time No Known Drug Allergies Allergy Verified 12/20/24 10:09 Review of Systems Review of Systems Narrative: General: Denies fever, chills, weight loss HEENT: Denies headache, eye drainage, eye irritation, head trauma, sore throat, voice change Cardiovascular: Denies any chest pain, palpitations, tachycardia Respiratory: Denies any shortness of breath, cough, wheeze, stridor GI/: Denies any abdominal pain, nausea, vomiting, diarrhea, bright red blood per rectum, melanotic stools, urinary frequency, urinary retention, dysuria, hematuria MSK: Positive right-sided rib pain Skin: Denies any rashes, lesions, discoloration Neuro: Denies any headache, lightheadedness, dizziness, fainting, weakness Psych: Denies SI/HI Patient History Medical History (Updated 01/10/25 @ 20:33 by Pietro Delaney DO) T8 vertebral fracture History of cardioversion Pacemaker (10/23/21) History of COVID-19 (05/19/21) Compression fracture of body of thoracic vertebra Dyspnea on exertion T9 vertebral fracture T7 vertebral fracture Back pain Somatic dysfunction of thoracic region Somatic dysfunction of rib Somatic dysfunction of upper extremity Somatic dysfunction of pelvic region Somatic dysfunction of lower extremity Sacral region somatic dysfunction Lumbar region somatic dysfunction Cranial somatic dysfunction Cervical (neck) region somatic dysfunction Somatic dysfunction of abdominal region Presence of cardiac pacemaker COPD exacerbation Abdominal ascites Elevated TSH Urinary leakage Urinary incontinence Hyperlipidemia Osteoporosis (~1989) Foot deformities, congenital Aortic valve stenosis (11/09/13) Surgical History History of cardiac radiofrequency ablation (10/29/21) Hx of bilateral cataract extraction (2006) Personal history of tricuspid valve disease History of aortic valve replacement with bioprosthetic valve (07/18/16) History of carpal tunnel release Normal colonoscopy (2005) History of tonsillectomy Family History Brother Hyperlipidemia Hypertension Sister Age: 77 Ovarian cancer Father No problems noted. Mother No problems noted. Other Breast cancer CAD (coronary artery disease) Colorectal cancer Diabetes mellitus Social History marital status: details: 62 yo son, Surya, living with her (11/30/23) number of children: 3 household members: other lives independently: Yes caregiver/support person: Yes housing: house occupational status: other Smoking Status: Never smoker alcohol intake: current Smoking Status: Never smoker alcohol intake frequency: holidays/special occasions only Exam Narrative Exam Narrative: General: Cooperative, well-developed, not in acute distress HEENT: Normocephalic, atraumatic, PERRLA, normal sclera, eyelids normal Neck: Active full range of motion, atraumatic Chest: Normal to inspection, negative crepitus, no overlying erythema ecchymosis Respiratory: Normal respiratory effort, not in acute respiratory distress, clear to auscultation bilaterally negative cough, wheeze, tachypnea, rhonchi, rales Cardiology: Regular rate rhythm negative gallop, murmur, rubs GI/: No tenderness to palpation, soft, non rigid, normal to inspection, exam deferred MSK: Patient wears spinal brace at baseline, does have some mild tenderness to palpation of the right-sided posterior spine but no overlying ecchymosis gross deformities, she has full active passive and active range of motion of bilateral upper and lower extremities, she is able to stand bear weight ambulate with her cane which is her baseline. No other tenderness to palpation of any bony prominences Skin: No rashes or lesions noted Neuro: Alert awake oriented x3, moves all 4 extremities spontaneously, cranial nerves intact, able to answer all questions appropriately follows commands appropriately Psych: Cooperative, negative suicidal or homicidal ideations Initial Vital Signs Initial Vital Signs: Vital Signs Temperature 98.7 F 01/10/25 17:46 Pulse Rate 70 01/10/25 17:46 Respiratory Rate 18 01/10/25 17:46 Blood Pressure 136/63 01/10/25 17:46 Pulse Oximetry 98 01/10/25 17:46 Oxygen Delivery Method Room Air 01/10/25 17:46 Course Orders Ordered: ED Orders 01/10/25 18:09 CT chest wo con Stat Vital Signs Vital signs: Vital Signs - 8 hr 01/10/25 17:46 Temperature 98.7 F Pulse Rate 70 Respiratory Rate 18 Blood Pressure 136/63 Pulse Oximetry 98 Oxygen Delivery Method Room Air MDM - Back Pain/Injury Differential Diagnosis Differential diagnosis: Likely other (Fracture, contusion) Imaging Data CT scan - chest: Radiologist's Impression: Impression showing no acute displaced rib fracture, chronic midthoracic compression deformities, no acute vertebral body compression fracture, c ardiomegaly MDM Narrative Medical decision making narrative: 89-year-old female with a past medical history of AFib with pacemaker not on anticoagulation due to chronic falls, CHF, hypertension presenting for right- sided posterior rib pain, states that she had a mechanical fall 2 days ago no head strike no LOC states she was reaching over a table and fell, states that she has some pain with increased breathing therefore decided come into ED for the evaluation treatment. On exam some mild tenderness to palpation of the p osterior lower right ribs but no overlying ecchymosis gross deformity patient does wear a spinal brace at baseline. CT scan showing no acute fractures patient will be discharged home with symptomatically for rib contusion given fall. Strict return precautions given to patient and family they verbalized understanding of this and agrees to being discharged home with outpatient follow up Discharge Plan Departure Patient Disposition: Home Clinical Impression: Contusion of rib on right side, Ground-level fall Activity Restrictions/Additional Instructions: Please follow up with the primary care doctor Please read the discharge instructions sheet carefully and bring all papers to all doctor follow-up visits, as it may contain information that your doctor may want to see. Disease processes change and evolve, if your symptoms worsen or if you develop any new symptoms that are concerning to you please return for evaluation. Your evaluation today does not show any evidence of any life- threatening/serious illnesses requiring admission to the hospital or surgery. Please follow-up with your doctor for re-evaluation in approximately 1 day. Seek immediate medical attention for any worrisome symptoms. *If you do not have a primary care provider please contact the [facility] Resource line at [phone]. They will ask some questions about your medical history and help get you set up with a doctor in the community. Prescriptions: New lidocaine 5 % adhesive patch,medicated 1 patch topical DAILY Qty: 15 0RF Rx Instructions: leave on most painful area for up to 12 hrs methocarbamol 500 mg tablet 500 mg PO Q8H 5 Days Qty: 15 0RF No Action latanoprost 0.005 % drops 1 drp EYE-BOTH DAILY (DME) Disabled Parking See Rx Instructions .ROUTE .MEDSUPPLY Qty: 1 0RF Rx Instructions: I find this patient to be medically disabled and qualified for Disabled Parking as indicated, and signed, on the Accompanying Disabled Parking Application for Individuals cholecalciferol (vitamin D3) 125 mcg (5,000 unit) capsule 125 mcg PO DAILY ascorbic acid (vitamin C) 1,000 mg tablet 1,200 mg PO DAILY lidocaine HCl-hydrocortison ac 3-0.5 % cream 1 applic RI BEDTIME PRN (Reason: hemorrhoids) Qty: 98 0RF levothyroxine 50 mcg tablet 50 mcg PO DAILY Qty: 90 3RF diltiazem HCl [Cartia XT] 180 mg capsule,extended release 24hr 180 mg PO DAILY Qty: 180 1RF aspirin 81 mg tablet,delayed release (DR/EC) 81 mg PO DAILY acetaminophen-codeine 300-30 mg tablet 1 tab PO BID PRN (Reason: Pain) Qty: 60 0RF Rx Instructions: Take one tablet up to 2 times daily as needed for back pain torsemide 10 mg tablet 10 mg PO DAILY losartan 25 mg tablet 25 mg PO DAILY calcitonin (salmon) 200 unit/actuation spray,non-aerosol 1 spray intranasal (ALT) DAILY 90 Days Qty: 3.7 2RF Rx Instructions: sacral fx Referrals: Jonn Rangel MD [Primary Care Provider] - Stand Alone Forms: Patient Portal/API/Survey
[2025-01-10] MEDS: methocarbamoL 500 MG TABLET PO (20:42)
[2025-01-10] MEDS: LIDOCAINE 5% PATCH 1 EACH TOP (20:42)
[2025-01-10 20:45] VITALS: BP 149/75; PULSE 70; RESP 17; O2SAT 95
== END 2025-01-10 20:50 | disposition home or self-care (01) ==
PROVIDERS: Emergency Provider Student in an Organized Health Care Education/Training Program; Family Provider Family Medicine; PCP Family Medicine
DX: S20.211A Contusion of right front wall of thorax, initial encounter (principal); R29.6 Repeated falls; Z95.0 Presence of cardiac pacemaker; W01.0XXA Fall on same level from slipping, tripping and stumbling without subsequent striking against object, initial encounter
CPT/HCPCS: 71250; 99283; 99284

== ENCOUNTER 2025-04-27 13:50 | Emergency (ER) | payer MEDICARE, OTHER, SELFPAY ==
[2023-10-06 17:35] VITALS: BMI 17.9
[2025-04-27 13:56] VITALS: BP 115/64; PULSE 69; RESP 18; TEMP 36.9; O2SAT 96; BMI 17.6
--- NOTE | 2025-04-27 14:05 | ED.EXTPRO ---
HPI - Extremity Problem <Loco Mullins PA-C - Last Filed: 04/27/25 15:41> General Chief complaint: Extremity Problem,Nontraumatic Stated complaint: Swollen left wrist Time Seen by Provider: 04/27/25 14:04 Source: patient Mode of arrival: Ambulatory History of Present Illness HPI Narrative: This is an 89-year-old female presents emergency department due to left wrist bruising and pain. Patient was does not recall any acute injury. She states that it was now some bruising and swelling and pain to the left wrist. Denies any numbness. She was not on blood thinners other than the aspirin 81 mg daily she takes. Denies any elbow pain or any other pains the rest of her body. Symptoms began roughly 4 hours ago. Related Data Home Medications ?Medication ?Instructions ?Recorded ?Confirmed cholecalciferol (vitamin D3) 125 125 mcg PO DAILY 01/20/23 02/16/25 mcg (5,000 unit) capsule ascorbic acid (vitamin C) 1,000 mg 1,200 mg PO DAILY 01/21/23 02/16/25 tablet latanoprost 0.005 % eye drops 1 drp EYE-BOTH DAILY 02/05/23 02/16/25 torsemide 10 mg tablet 10 mg PO DAILY 10/06/23 02/16/25 losartan 25 mg tablet 25 mg PO DAILY 04/06/24 02/16/25 aspirin 81 mg tablet,delayed 81 mg PO DAILY 09/05/24 02/16/25 release calcium carbonate 600 mg PO BID 02/16/25 02/16/25 methocarbamol 500 mg tablet 500 mg PO Q8H 02/16/25 02/16/25 Previous Rx's ?Medication ?Instructions ?Recorded Disabled Parking #1 ea 09/08/22 lidocaine 3 %-hydrocortisone 0.5 % 1 applic [place] BEDTIME PRN 09/14/23 rectal cream hemorrhoids #98 grams levothyroxine 50 mcg tablet 50 mcg PO DAILY #90 tabs 05/09/24 diltiazem HCl 180 mg 180 mg PO DAILY #180 caps 05/16/24 capsule,extended release 24 hr (Cartia XT) lidocaine 5 % topical patch 1 patch topical DAILY #15 ea 01/10/25 acetaminophen 300 mg-codeine 30 mg 1 tab PO TID PRN Pain #90 tabs 02/16/25 tablet calcitonin (salmon) 200 1 spray intranasal (ALT) DAILY 02/16/25 unit/actuation nasal spray sacral fx 3 months #3.7 mL Allergies Allergy/AdvReac Type Severity Reaction Status Date / Time No Known Drug Allergies Allergy Verified 04/27/25 13:56 Review of Systems <Loco Mullins PA-C - Last Filed: 04/27/25 15:41> Review of Systems Narrative: GENERAL: Denies chills, fatigue, malaise, fever, sweats. HEENT: Denies sinus pain, ear pain, sore throat, difficulty swallowing, dizziness. RESPIRATORY: Denies dyspnea, cough, wheezing, hemoptysis, sputum. CARDIOVASCULAR: Denies chest pain, palpitations, orthopnea, edema, GASTROINTESTINAL: Denies nausea, vomiting, abdominal pain, diarrhea, constipation, melena. : Denies dysuria, frequency, incontinence, hematuria, urinary retention. MUSCULOSKELETAL: Left wrist pain and bruising SKIN: Denies rash, skin lesions, or other NEUROLOGIC: Denies weakness, headache, numbness, change in speech, confusion, seizures, incoordination. PSYCHIATRIC: No concerning psychosocial issues. 12 point review of systems is negative except for those stated above Patient History <Loco Mullins PA-C - Last Filed: 04/27/25 15:41> Medical History (Updated 04/27/25 @ 15:41 by Loco Mullins PA-C) T8 vertebral fracture History of cardioversion Pacemaker (10/23/21) History of COVID-19 (05/19/21) Compression fracture of body of thoracic vertebra Dyspnea on exertion T9 vertebral fracture T7 vertebral fracture Back pain Somatic dysfunction of thoracic region Somatic dysfunction of rib Somatic dysfunction of upper extremity Somatic dysfunction of pelvic region Somatic dysfunction of lower extremity Sacral region somatic dysfunction Lumbar region somatic dysfunction Cranial somatic dysfunction Cervical (neck) region somatic dysfunction Somatic dysfunction of abdominal region Presence of cardiac pacemaker COPD exacerbation Abdominal ascites Elevated TSH Urinary leakage Urinary incontinence Hyperlipidemia Osteoporosis (~1989) Foot deformities, congenital Aortic valve stenosis (11/09/13) Surgical History History of cardiac radiofrequency ablation (10/29/21) Hx of bilateral cataract extraction (2006) Personal history of tricuspid valve disease History of aortic valve replacement with bioprosthetic valve (07/18/16) History of carpal tunnel release Normal colonoscopy (2005) History of tonsillectomy Family History Brother Hyperlipidemia Hypertension Sister Age: 77 Ovarian cancer Father No problems noted. Mother No problems noted. Other Breast cancer CAD (coronary artery disease) Colorectal cancer Diabetes mellitus Social History marital status: details: 62 yo son, Surya, living with her (11/30/23) number of children: 3 household members: other lives independently: Yes caregiver/support person: Yes housing: house occupational status: other alcohol intake: current alcohol intake frequency: holidays/special occasions only Exam <Loco Mullins PA-C - Last Filed: 04/27/25 15:41> Narrative Exam Narrative: GENERAL: Well-developed patient, in mild distress. HEAD: Atraumatic. Normocephalic. EYES: Pupils equal round and reactive. Extraocular motions intact. No scleral icterus. No injection or drainage. ENT: Nose without bleeding, purulent drainage. Throat without erythema, tonsillar hypertrophy or exudate. Airway patent. NECK: Trachea midline. Non tender EXTREMITIES: Ecchymosis with possible hematoma to the left wrist. Tenderness to palpation to the distal radius and ulna NEURO: AOx3. SKIN: No rash or erythema of visible areas Initial Vital Signs Initial Vital Signs: Vital Signs Temperature 98.5 F 04/27/25 13:56 Pulse Rate 69 04/27/25 13:56 Respiratory Rate 18 04/27/25 13:56 Blood Pressure 115/64 04/27/25 13:56 Pulse Oximetry 96 04/27/25 13:56 Oxygen Delivery Method Room Air 04/27/25 13:56 <Gabrielle Douglass DO - Last Filed: 04/27/25 18:31> Initial Vital Signs Initial Vital Signs: Vital Signs Temperature 98.5 F 04/27/25 13:56 Pulse Rate 69 04/27/25 13:56 Respiratory Rate 18 04/27/25 13:56 Blood Pressure 115/64 04/27/25 13:56 Pulse Oximetry 96 04/27/25 13:56 Oxygen Delivery Method Room Air 04/27/25 13:56 Course <Loco Mullins PA-C - Last Filed: 04/27/25 15:41> Orders Ordered: ED Orders 04/27/25 14:13 XR wrist LT min 3V Stat Vital Signs Vital signs: Vital Signs - 8 hr 04/27/25 13:56 04/27/25 15:49 Temperature 98.5 F Pulse Rate 69 67 Respiratory Rate 18 18 Blood Pressure 115/64 112/61 Pulse Oximetry 96 98 Oxygen Delivery Method Room Air Room Air <Gabrielle Douglass DO - Last Filed: 04/27/25 18:31> Orders Ordered: ED Orders 04/27/25 14:13 XR wrist LT min 3V Stat Vital Signs Vital signs: Vital Signs - 8 hr 04/27/25 13:56 04/27/25 15:49 Temperature 98.5 F Pulse Rate 69 67 Respiratory Rate 18 18 Blood Pressure 115/64 112/61 Pulse Oximetry 96 98 Oxygen Delivery Method Room Air Room Air MDM - Extremity (Nontraumatic) <Loco Mullins PA-C - Last Filed: 04/27/25 15:41> Imaging Data Extremity x-ray #1: Radiologist's Impression: [address] [address] XRay Report Signed Patient: Celena Wells MR#: [id number] : 1935 Acct:[id number] Age/Sex: 89 / F Date of Service: 04/27/25 Loc: ED Accession Number: [id number] Procedure: XR wrist LT min 3V Ordering Provider: Loco Mullins PA-C PROCEDURE: XR WRIST LT MIN 3V INDICATIONS: Bruising and TTP TECHNIQUE: 4 views of the wrist were acquired. COMPARISON: None. FINDINGS: Bones: No fractures or dislocations. No navicular fractures are seen. No suspicious bony lesions. Degenerative changes are seen throughout, which are most prominent involving the 1st carpometacarpal joint. Milder degenerative changes are seen elsewhere. Soft tissues: No suspicious soft tissue calcifications. IMPRESSION: No displaced fractures are seen on these plain films. If there is point tenderness (or other clinical suspicion for a fracture not seen on these images) then a dedicated CT could be considered for further evaluation, if clinically appropriate. Focal significant degenerative change can be seen involving the 1st carpometacarpal joint. Dictated by: Yobany Galan M.D. on 04/27/2025 at 13:52 Approved by: Yobany Galan M.D. on 04/27/2025 at 13:53 [facility] Narrative Medical decision making narrative: ED course: This is a 89-year-old female presenting to the emergency department due to left wrist pain. Patient was not recall any acute injury but does have tenderness to palpation and ecchymosis as well as small hematoma to the left wrist. X-rays ordered which was unremarkable. Suspect bone contusion with associated hematoma and ecchymosis. We will treat conservatively with compression and ice and rest. Patient not on blood thinners other than baby aspirin daily. Neurovascularly intact throughout. CC: Left wrist pain Complicating co-morbidities: CHF, cardiomyopathy, pulmonary hypertension, osteoporosis Data collected from: Previous notes Medical records reviewed: Patient was on blood thinners Differential considered, but not limited to: Fracture, contusion, sprain, DVT Exam documented above, pertinent findings include: Tenderness to palpation ecchymosis to the left wrist Lab Test results independently reviewed as above. Pertinent findings: None obtained Imaging studies independently reviewed: X-ray unremarkable Scores Used: None MIPS Elements: None Consultations: None Treatments: HEMALATHA wrap Re-evaluations: None Discussion: Discussed plan with the patient was comfortable with the plan Diagnosis: Wrist contusion Disposition: see below, along with detailed discharge instructions that have been reviewed with patient as well as indications for ED re-evaluation and additional outpatient follow up Discharge Plan Departure Patient Disposition: Home Clinical Impression: Contusion of left wrist Qualifiers: Encounter type: initial encounter Qualified Code(s): S60.212A - Contusion of left wrist, initial encounter Instructions: DI for Contusion Activity Restrictions/Additional Instructions: Thank you for coming to the [facility] Emergency Department today. As we discussed x-ray was negative for any fractures or other bony abnormalities. I think this may be a ?bone bruise? which should improve over time with rest, ice, elevation Please return to the emergency department if you develop any significant pain, numbness, or any other concerning signs or symptoms. I hope you feel better soon. Please follow up with your primary care provider within a week if your symptoms continue. If you do not have a primary care provider please contact the [facility] Resource line at [phone]. They will ask some questions about your medical history and help you get set up with a provider in the community. Prescriptions: No Action latanoprost 0.005 % drops 1 drp EYE-BOTH DAILY (DME) Disabled Parking See Rx Instructions .ROUTE .MEDSUPPLY Qty: 1 0RF Rx Instructions: I find this patient to be medically disabled and qualified for Disabled Parking as indicated, and signed, on the Accompanying Disabled Parking Application for Individuals cholecalciferol (vitamin D3) 125 mcg (5,000 unit) capsule 125 mcg PO DAILY ascorbic acid (vitamin C) 1,000 mg tablet 1,200 mg PO DAILY lidocaine HCl-hydrocortison ac 3-0.5 % cream 1 applic [place] BEDTIME PRN (Reason: hemorrhoids) Qty: 98 0RF levothyroxine 50 mcg tablet 50 mcg PO DAILY Qty: 90 3RF diltiazem HCl [Cartia XT] 180 mg capsule,extended release 24hr 180 mg PO DAILY Qty: 180 1RF aspirin 81 mg tablet,delayed release (DR/EC) 81 mg PO DAILY methocarbamol 500 mg tablet 500 mg PO Q8H calcium carbonate 600 mg calcium (1,500 mg) tablet 600 mg PO BID calcitonin (salmon) 200 unit/actuation spray,non-aerosol 1 spray intranasal (ALT) DAILY 90 Days Qty: 3.7 2RF Rx Instructions: sacral fx acetaminophen-codeine 300-30 mg tablet 1 tab PO TID PRN (Reason: Pain) Qty: 90 3RF Rx Instructions: Take one tablet up to 2 times daily as needed for back pain torsemide 10 mg tablet 10 mg PO DAILY lidocaine 5 % adhesive patch,medicated 1 patch topical DAILY Qty: 15 0RF Rx Instructions: leave on most painful area for up to 12 hrs losartan 25 mg tablet 25 mg PO DAILY Referrals: Jonn Rangel MD [Primary Care Provider, Family Practice] Stand Alone Forms: Patient Portal/API ED Sign-out <Gabrielle Douglass, - Last Filed: 04/27/25 18:31> Cosign ED Attending Cosignature Attestation: I was immediately available in the department for consultation.
--- NOTE | 2025-04-27 14:13 | DI.RAD.S_ITS ---
PROCEDURE: XR WRIST LT MIN 3V INDICATIONS: Bruising and TTP TECHNIQUE: 4 views of the wrist were acquired. COMPARISON: None. FINDINGS: Bones: No fractures or dislocations. No navicular fractures are seen. No suspicious bony lesions. Degenerative changes are seen throughout, which are most prominent involving the 1st carpometacarpal joint. Milder degenerative changes are seen elsewhere. Soft tissues: No suspicious soft tissue calcifications. IMPRESSION: No displaced fractures are seen on these plain films. If there is point tenderness (or other clinical suspicion for a fracture not seen on these images) then a dedicated CT could be considered for further evaluation, if clinically appropriate. Focal significant degenerative change can be seen involving the 1st carpometacarpal joint. Dictated by: Yobany Galan M.D. on 04/27/2025 at 13:52 Approved by: Yobany Galan M.D. on 04/27/2025 at 13:53
[2025-04-27 15:49] VITALS: BP 112/61; PULSE 67; RESP 18; O2SAT 98
== END 2025-04-27 15:50 | disposition home or self-care (01) ==
PROVIDERS: Emergency Provider Physician Assistant Medical; Family Provider Family Medicine; PCP Family Medicine
DX: S60.212A Contusion of left wrist, initial encounter (principal)
CPT/HCPCS: 73110; 99281; 99283

== ENCOUNTER 2025-06-23 13:44 | Observation (INO) | payer MEDICARE, OTHER, SELFPAY ==
[2023-10-06 17:35] VITALS: BMI 17.9
[2025-06-23] VITALS (9 sets, daily range): BP systolic 127–163; BP diastolic 63–87; PULSE 66–70; RESP 18–22; TEMP 36.8; O2SAT 93–98; BMI 19.1
--- NOTE | 2025-06-23 13:59 | ED_ITS ---
HPI - SOB/Dyspnea
--- NOTE | 2025-06-23 13:59 | ED.SOB ---
HPI - SOB/Dyspnea <Pablo Grover, DO - Last Filed: 06/23/25 21:47> General Chief Complaint: Shortness of Breath/Dyspnea Stated Complaint: SOB 1 week Time Seen by Provider: 06/23/25 13:54 History of Present Illness HPI Narrative: 89y F history of aortic valve replacement, tricuspid clip maker, pacemaker installed, cardiac ablation, several cardioversions, heart failure presents with shortness of breath at rest and with activity despite increasing torsemide for which she was previously taking intermittently and now daily for the past 4 days. Other than what is stated 14 point review of system is negative. Related Data Home Medications ?Medication ?Instructions ?Recorded ?Confirmed cholecalciferol (vitamin D3) 125 125 mcg PO DAILY 01/20/23 06/23/25 mcg (5,000 unit) capsule ascorbic acid (vitamin C) 1,000 mg 1,200 mg PO DAILY 01/21/23 06/23/25 tablet latanoprost 0.005 % eye drops 1 drp EYE-BOTH DAILY 02/05/23 06/23/25 torsemide 10 mg tablet 10 mg PO DAILY 10/06/23 06/23/25 losartan 25 mg tablet 12.5 mg PO DAILY 04/06/24 06/23/25 aspirin 81 mg tablet,delayed 81 mg PO DAILY 09/05/24 06/23/25 release calcium carbonate 600 mg PO BID 02/16/25 06/23/25 diltiazem HCl 180 mg 360 mg PO DAILY 06/23/25 06/23/25 capsule,extended release 24 hr (Cartia XT) Previous Rx's ?Medication ?Instructions ?Recorded Disabled Parking #1 ea 09/08/22 lidocaine 3 %-hydrocortisone 0.5 % 1 applic FL BEDTIME PRN 09/14/23 rectal cream hemorrhoids #98 grams levothyroxine 50 mcg tablet 50 mcg PO DAILY #90 tabs 05/09/24 acetaminophen 300 mg-codeine 30 mg 1 tab PO TID PRN Pain #90 tabs 02/16/25 tablet calcitonin (salmon) 200 1 spray intranasal (ALT) DAILY 02/16/25 unit/actuation nasal spray sacral fx 3 months #3.7 mL Allergies Allergy/AdvReac Type Severity Reaction Status Date / Time No Known Drug Allergies Allergy Verified 06/23/25 13:54 Review of Systems <Pablo Grover, - Last Filed: 06/23/25 21:47> Review of Systems ROS Unobtainable: All systems reviewed & are unremarkable except as noted in HPI and below Patient History <Pablo Grover DO - Last Filed: 06/23/25 21:47> Medical History (Updated 06/23/25 @ 17:12 by Steph Ac DO) T8 vertebral fracture History of cardioversion Pacemaker (10/23/21) History of COVID-19 (05/19/21) Compression fracture of body of thoracic vertebra Dyspnea on exertion T9 vertebral fracture T7 vertebral fracture Back pain Somatic dysfunction of thoracic region Somatic dysfunction of rib Somatic dysfunction of upper extremity Somatic dysfunction of pelvic region Somatic dysfunction of lower extremity Sacral region somatic dysfunction Lumbar region somatic dysfunction Cranial somatic dysfunction Cervical (neck) region somatic dysfunction Somatic dysfunction of abdominal region Presence of cardiac pacemaker COPD exacerbation Abdominal ascites Elevated TSH Urinary leakage Urinary incontinence Hyperlipidemia Osteoporosis (~1989) Foot deformities, congenital Aortic valve stenosis (11/09/13) Surgical History History of cardiac radiofrequency ablation (10/29/21) Hx of bilateral cataract extraction (2006) Personal history of tricuspid valve disease History of aortic valve replacement with bioprosthetic valve (07/18/16) History of carpal tunnel release Normal colonoscopy (2005) History of tonsillectomy Family History Brother Hyperlipidemia Hypertension Sister Age: 77 Ovarian cancer Father No problems noted. Mother No problems noted. Other Breast cancer CAD (coronary artery disease) Colorectal cancer Diabetes mellitus Social History marital status: details: 62 yo sonSurya, living with her (11/30/23) number of children: 3 household members: children lives independently: Yes caregiver/support person: Yes housing: house occupational status: other Smoking Status: Never smoker alcohol intake: current alcohol intake frequency: holidays/special occasions only Exam <Pablo Grover DO - Last Filed: 06/23/25 21:47> Narrative Exam Narrative: GENERAL: [89] year old patient appears stated age. Well-developed patient, in mild distress. HEAD: Atraumatic. Normocephalic. EYES: Pupils equal round and reactive. Extraocular motions intact. No scleral icterus. No injection or drainage. ENT: Nose without bleeding, purulent drainage. Throat without erythema, tonsillar hypertrophy or exudate. Airway patent. NECK: Trachea midline. Non tender CARDIOVASCULAR: Regular rate and rhythm without murmurs, gallops, or rubs. RESPIRATORY: Faint crackles b/l l/e GASTROINTESTINAL: Abdomen soft, non-tender, nondistended. EXTREMITIES: No edema or joint tenderness. BACK: Nontender without deformity or crepitance. No flank tenderness. NEURO: AOx3. SKIN: No rash or erythema of visible areas Initial Vital Signs Initial Vital Signs: Vital Signs Temperature 98.2 F 06/23/25 13:53 Pulse Rate 66 06/23/25 13:53 Respiratory Rate 18 06/23/25 13:53 Blood Pressure 156/71 H 06/23/25 13:53 Pulse Oximetry 96 06/23/25 13:53 Oxygen Delivery Method Room Air 06/23/25 13:53 <Steph Ac, DO - Last Filed: 06/23/25 20:27> Initial Vital Signs Initial Vital Signs: Vital Signs Temperature 98.2 F 06/23/25 13:53 Pulse Rate 66 06/23/25 13:53 Respiratory Rate 18 06/23/25 13:53 Blood Pressure 156/71 H 06/23/25 13:53 Pulse Oximetry 96 06/23/25 13:53 Oxygen Delivery Method Room Air 06/23/25 13:53 Course <Pablo Grover, DO - Last Filed: 06/23/25 21:47> Orders Ordered: ED Orders 06/23/25 14:14 Complete Blood Count AUTO DIFF Stat Comprehensive Metabolic Panel Stat Lipase Stat Magnesium Stat NT-proBNP (BNP-Adult 18+) Stat Troponin I Stat 06/23/25 14:42 XR chest 1V Stat EKG-12 Lead Stat 06/23/25 15:53 US abdomen limited Stat 06/23/25 17:50 Trop I [Troponin I] Stat Acetaminophen (Acetaminophen 325 Mg Tablet) 650 mg PO Q6H PRN PRN Reason: Fever/Mild Pain (1-3) Acetaminophen/Codeine Phosphate (Codeine/Acetaminophen 30/300 Tablet) 1 tab PO TID PRN PRN Reason: Pain Aspirin (Aspirin Ec 81 Mg Tablet) 81 mg PO DAILY [facility] Diltiazem HCl (Diltiazem Cd 180 Mg Cap) 180 mg PO DAILY [facility] Docusate Sodium (Docusate 100 Mg Capsule) 100 mg PO BID [facility] Last Admin: 06/23/25 20:50 Dose: 100 mg Documented By: YIFAN Enoxaparin Sodium (Enoxaparin 30 Mg/0.3 Ml Syringe) 30 mg SUBCUT DAILY [facility] Furosemide (Furosemide 40 Mg/4 Ml Vial) 40 mg IV Q8H [facility] Last Admin: 06/23/25 18:39 Dose: Not Given Documented By: URIEL Levothyroxine Sodium (Levothyroxine 50 Mcg Tablet) 50 mcg PO DAILY@0600 [facility] Losartan Potassium (Losartan 25 Mg Tablet) 25 mg PO DAILY [facility] Naloxone HCl (Naloxone 0.4 Mg/Ml Vial) 0.2 mg IV Q2MIN PRN PRN Reason: Opiate Reversal Sodium Chloride (Sodium Chloride 0.9% Flush) 10 ml IV PRN PRN PRN Reason: Flush Sodium Chloride (Sodium Chloride 0.9% Flush) 10 ml IV BID [facility] Discontinued Medications Furosemide (Furosemide 40 Mg/4 Ml Vial) 40 mg IV NOW ONE Stop: 06/23/25 15:27 Last Admin: 06/23/25 15:55 Dose: 40 mg Documented By: KAYCEE Vital Signs Vital signs: Vital Signs - 8 hr 06/23/25 13:53 06/23/25 14:18 06/23/25 14:30 Temperature 98.2 F Pulse Rate 66 69 69 Respiratory Rate 18 20 20 Blood Pressure 156/71 H Pulse Oximetry 96 97 95 Oxygen Delivery Method Room Air 06/23/25 14:30 06/23/25 15:00 06/23/25 15:00 Temperature Pulse Rate 69 Respiratory Rate 20 Blood Pressure 129/63 137/69 Pulse Oximetry 95 Oxygen Delivery Method 06/23/25 15:30 06/23/25 15:30 06/23/25 16:00 Temperature Pulse Rate 69 69 Respiratory Rate 19 22 Blood Pressure 141/75 H Pulse Oximetry 95 96 Oxygen Delivery Method 06/23/25 16:00 06/23/25 16:26 06/23/25 16:26 Temperature Pulse Rate 69 Respiratory Rate 22 Blood Pressure 127/87 152/76 H Pulse Oximetry 98 Oxygen Delivery Method 06/23/25 16:30 06/23/25 16:30 06/23/25 17:00 Temperature Pulse Rate 70 Respiratory Rate 22 Blood Pressure 163/75 H 156/77 H Pulse Oximetry 94 Oxygen Delivery Method 06/23/25 17:00 Temperature Pulse Rate 69 Respiratory Rate 22 Blood Pressure Pulse Oximetry 93 Oxygen Delivery Method <Steph Ac DO - Last Filed: 06/23/25 20:27> Orders Ordered: ED Orders 06/23/25 14:14 Complete Blood Count AUTO DIFF Stat Comprehensive Metabolic Panel Stat Lipase Stat Magnesium Stat NT-proBNP (BNP-Adult 18+) Stat Troponin I Stat 06/23/25 14:42 XR chest 1V Stat EKG-12 Lead Stat 06/23/25 15:53 US abdomen limited Stat 06/23/25 17:50 Trop I [Troponin I] Stat Acetaminophen (Acetaminophen 325 Mg Tablet) 650 mg PO Q6H PRN PRN Reason: Fever/Mild Pain (1-3) Acetaminophen/Codeine Phosphate (Codeine/Acetaminophen 30/300 Tablet) 1 tab PO TID PRN PRN Reason: Pain Aspirin (Aspirin Ec 81 Mg Tablet) 81 mg PO DAILY [facility] Diltiazem HCl (Diltiazem Cd 180 Mg Cap) 180 mg PO DAILY [facility] Docusate Sodium (Docusate 100 Mg Capsule) 100 mg PO BID [facility] Last Admin: 06/23/25 20:50 Dose: 100 mg Documented By: YIFAN Enoxaparin Sodium (Enoxaparin 30 Mg/0.3 Ml Syringe) 30 mg SUBCUT DAILY [facility] Furosemide (Furosemide 40 Mg/4 Ml Vial) 40 mg IV Q8H [facility] Last Admin: 06/23/25 18:39 Dose: Not Given Documented By: URIEL Levothyroxine Sodium (Levothyroxine 50 Mcg Tablet) 50 mcg PO DAILY@0600 [facility] Losartan Potassium (Losartan 25 Mg Tablet) 25 mg PO DAILY [facility] Naloxone HCl (Naloxone 0.4 Mg/Ml Vial) 0.2 mg IV Q2MIN PRN PRN Reason: Opiate Reversal Sodium Chloride (Sodium Chloride 0.9% Flush) 10 ml IV PRN PRN PRN Reason: Flush Sodium Chloride (Sodium Chloride 0.9% Flush) 10 ml IV BID [facility] Discontinued Medications Furosemide (Furosemide 40 Mg/4 Ml Vial) 40 mg IV NOW ONE Stop: 06/23/25 15:27 Last Admin: 06/23/25 15:55 Dose: 40 mg Documented By: DKB Vital Signs Vital signs: Vital Signs - 8 hr 06/23/25 13:53 06/23/25 14:18 06/23/25 14:30 Temperature 98.2 F Pulse Rate 66 69 69 Respiratory Rate 18 20 20 Blood Pressure 156/71 H Pulse Oximetry 96 97 95 Oxygen Delivery Method Room Air 06/23/25 14:30 06/23/25 15:00 06/23/25 15:00 Temperature Pulse Rate 69 Respiratory Rate 20 Blood Pressure 129/63 137/69 Pulse Oximetry 95 Oxygen Delivery Method 06/23/25 15:30 06/23/25 15:30 06/23/25 16:00 Temperature Pulse Rate 69 69 Respiratory Rate 19 22 Blood Pressure 141/75 H Pulse Oximetry 95 96 Oxygen Delivery Method 06/23/25 16:00 06/23/25 16:26 06/23/25 16:26 Temperature Pulse Rate 69 Respiratory Rate 22 Blood Pressure 127/87 152/76 H Pulse Oximetry 98 Oxygen Delivery Method 06/23/25 16:30 06/23/25 16:30 06/23/25 17:00 Temperature Pulse Rate 70 Respiratory Rate 22 Blood Pressure 163/75 H 156/77 H Pulse Oximetry 94 Oxygen Delivery Method 06/23/25 17:00 Temperature Pulse Rate 69 Respiratory Rate 22 Blood Pressure Pulse Oximetry 93 Oxygen Delivery Method MDM - SOB/Dyspnea <Pablo Grover, DO - Last Filed: 06/23/25 21:47> Lab Data 06/23/25 14:14 06/23/25 14:14 Labs: Lab Results 06/23/25 Range/Units 14:14 WBC 6.5 (4.5-11.0) X10^3/uL RBC 3.71 L (4.0-5.2) X10^6/uL Hgb 11.4 L (12.0-16.0) g/dL Hct 35.0 L (36-46) % MCV 94.4 (80-100) fL MCH 30.9 (26-34) PG MCHC 32.7 (30-36) % RDW 14.4 (11.6-14.8) % Plt Count 104 L (150-400) X10^3/uL Neut % (Auto) 75.9 H (50-75) % Lymph % (Auto) 9.6 L (25-40) % [place] % (Auto) 9.7 (3-14) % Eos % (Auto) 3.7 (2-4) % Baso % (Auto) 1.1 (0-2) % Neut # (Auto) 4900 (5873-6703) /uL Lymph # (Auto) 600 L (2137-0259) /uL [place] # (Auto) 600 (0-900) /uL Eos # (Auto) 200 (0-450) /uL Baso # (Auto) 100 (0-100) /uL Sodium 139 (137-145) mmol/L Potassium 4.5 (3.4-5.1) mmol/L Chloride 103 (98-107) mmol/L Carbon Dioxide 28 (22-32) mmol/L BUN 28 H (7-17) mg/dL Creatinine 0.94 (0.52-1.04) mg/dL Estimated GFR 58 L (>60) mL/min BUN/Creatinine Ratio 29.8 H (6-22) Glucose 94 (70-99) mg/dL Calcium 9.3 (8.4-10.2) mg/dL Magnesium 1.9 (1.6-2.3) mg/dL Total Bilirubin 2.0 H (0.2-1.3) mg/dL AST 61 H (14-36) IU/L ALT 39 H (<35) IU/L Alkaline Phosphatase 69 (38-126) U/L Troponin I 0.060 H (0.01-0.034) ng/mL NT-Pro-B Natriuret Pep 55281 H (<450) pg/mL Total Protein 7.7 (6.3-8.2) g/dL Albumin 4.5 (3.5-5.0) g/dL Globulin 3.2 (1.7-4.1) g/dL Albumin/Globulin Ratio 1.4 (1.0-2.8) Lipase 85 (23-300) U/L ECG Data Interpretation: V paced HR 70 QRS [address]-t wave change Unchanged from 10/21/24 [facility] Narrative Medical decision making narrative: All lab work, vital signs, nurse triage note, medication list, previous ER visits, and all imaging studies reviewed. WBC 6.5 hemoglobin 11.4 hematocrit 35 platelet 104 sodium 139 potassium 4.4 chloride 103 CO2 28 BUN 28 creatinine 0.94 glucose 94 magnesium 1.9. EKG V paced. Troponin 0.06 and BNP 11,500. Patient signed out to Dr. Ac at shift change pending final disposition. <Steph Ac, - Last Filed: 06/23/25 20:27> Lab Data Labs: Lab Results 06/23/25 Range/Units 14:14 WBC 6.5 (4.5-11.0) X10^3/uL RBC 3.71 L (4.0-5.2) X10^6/uL Hgb 11.4 L (12.0-16.0) g/dL Hct 35.0 L (36-46) % MCV 94.4 (80-100) fL MCH 30.9 (26-34) PG MCHC 32.7 (30-36) % RDW 14.4 (11.6-14.8) % Plt Count 104 L (150-400) X10^3/uL Neut % (Auto) 75.9 H (50-75) % Lymph % (Auto) 9.6 L (25-40) % [place] % (Auto) 9.7 (3-14) % Eos % (Auto) 3.7 (2-4) % Baso % (Auto) 1.1 (0-2) % Neut # (Auto) 4900 (2399-8442) /uL Lymph # (Auto) 600 L (1582-4368) /uL [place] # (Auto) 600 (0-900) /uL Eos # (Auto) 200 (0-450) /uL Baso # (Auto) 100 (0-100) /uL Sodium 139 (137-145) mmol/L Potassium 4.5 (3.4-5.1) mmol/L Chloride 103 (98-107) mmol/L Carbon Dioxide 28 (22-32) mmol/L BUN 28 H (7-17) mg/dL Creatinine 0.94 (0.52-1.04) mg/dL Estimated GFR 58 L (>60) mL/min BUN/Creatinine Ratio 29.8 H (6-22) Glucose 94 (70-99) mg/dL Calcium 9.3 (8.4-10.2) mg/dL Magnesium 1.9 (1.6-2.3) mg/dL Total Bilirubin 2.0 H (0.2-1.3) mg/dL AST 61 H (14-36) IU/L ALT 39 H (<35) IU/L Alkaline Phosphatase 69 (38-126) U/L Troponin I 0.060 H (0.01-0.034) ng/mL NT-Pro-B Natriuret Pep 00249 H (<450) pg/mL Total Protein 7.7 (6.3-8.2) g/dL Albumin 4.5 (3.5-5.0) g/dL Globulin 3.2 (1.7-4.1) g/dL Albumin/Globulin Ratio 1.4 (1.0-2.8) Lipase 85 (23-300) U/L Imaging Data US - abdomen: Radiologist's Impression: PROCEDURE: US ABDOMEN LIMITED INDICATIONS: elevated bilirubin and LFT TECHNIQUE: Real-time scanning was performed of the abdominal and retroperitoneal organs, with image documentation. COMPARISON: [facility], US ABDOMEN COMPLETE, 01/15/2023, 13:34. FINDINGS: Liver: Liver is normal in size and homogeneous in echotexture. Gallbladder: No stones or wall thickening. Biliary ducts: Intrahepatic bile ducts are non-dilated. Extrahepatic bile duct caliber is not well visualized. Normal is 6-7 mm or less in diameter, or 10 mm or less post-cholecystectomy. Pancreas: Visualized portions of the pancreas straight atrophy. Spleen: Spleen is normal in size and homogeneous in echotexture. Aorta: Visualized aorta is normal in caliber at less than 3 cm. Atherosclerotic plaque is present within the aorta extending to the l iliac arteries bilaterally. Iliacs: Proximal common iliac arteries are normal in caliber at less than 2.5 cm. IVC: Intrahepatic inferior vena cava is patent. Miscellaneous: No free abdominal fluid. Visualized portions of the right kidney are unremarkable. Simple right renal cyst measuring 0.5 cm. IMPRESSION: No visualized cause of elevated LFTs. Dictated by: Simi Burrows M.D. on 06/23/2025 at 17:03 Chest x-ray: Radiologist's Impression: PROCEDURE: US ABDOMEN LIMITED INDICATIONS: elevated bilirubin and LFT TECHNIQUE: Real-time scanning was performed of the abdominal and retroperitoneal organs, with image documentation. COMPARISON: [facility], US ABDOMEN COMPLETE, 01/15/2023, 13:34. FINDINGS: Liver: Liver is normal in size and homogeneous in echotexture. Gallbladder: No stones or wall thickening. Biliary ducts: Intrahepatic bile ducts are non-dilated. Extrahepatic bile duct caliber is not well visualized. Normal is 6-7 mm or less in diameter, or 10 mm or less post-cholecystectomy. Pancreas: Visualized portions of the pancreas straight atrophy. Spleen: Spleen is normal in size and homogeneous in echotexture. Aorta: Visualized aorta is normal in caliber at less than 3 cm. Atherosclerotic plaque is present within the aorta extending to the l iliac arteries bilaterally. Iliacs: Proximal common iliac arteries are normal in caliber at less than 2.5 cm. IVC: Intrahepatic inferior vena cava is patent. Miscellaneous: No free abdominal fluid. Visualized portions of the right kidney are unremarkable. Simple right renal cyst measuring 0.5 cm. IMPRESSION: No visualized cause of elevated LFTs. Dictated by: Simi Burrows M.D. on 06/23/2025 at 17:03 MDM Narrative Medical decision making narrative: All lab work, vital signs, nurse triage note, medication list, previous ER visits, and all imaging studies reviewed. WBC 6.5 hemoglobin 11.4 hematocrit 35 platelet 104 sodium 139 potassium 4.4 chloride 103 CO2 28 BUN 28 creatinine 0.94 glucose 94 magnesium 1.9. EKG V paced. Troponin 0.06 and BNP 11,500. Patient signed out to Dr. Ac at shift change pending final disposition. 1530 Dr. Ac patient is signed out to me by Dr. Manrique I have seen evaluated patient myself chart reviewed. Patient 89-year-old female history of atrial fibrillation with pacemaker, CHF hypothyroidism. Son at bedside reports that typically the dose of torsemide is every other day however over the last 4 days they have been giving it every day and seen no improvement. Blood work reviewed CBC no leukocytosis no anemia CMP normal electrolytes no FARHEEN creatinine 0.94 Bilirubin is elevated at 2.0 with elevated AST 61 elevated ALT 39 Troponin 0.06-->0.069 with BNP 88030 Imaging reviewed Mild increased vascularity suggestive of edema EKGs reviewed paced rhythm without Sgarbossa criteria Patient ambulated to the restroom and when returned did require 1 L of nasal cannula she quickly recovered. Patient has trialed outpatient increase in diuretics. She clinically is fluid overloaded she has got vascular congestion on her x-ray suspect that elevated bilirubin and liver enzymes are from fluid overload ultrasound is negative. Her troponins are indeterminate I suspect from CHF not from NSTEMI they are not at a positive level yet. BNP is also elevated. 1715 Dr. Rangel updated patient's symptoms test results kindly accepts patient. Discharge Plan Departure Patient Disposition: Admitted as Observation Clinical Impression: CHF (congestive heart failure) Admit Date/Time: 06/23/25 17:12 Admit Provider: Jonn Rangel
--- NOTE | 2025-06-23 14:14 | EKG_ITS ---
[facility]
--- NOTE | 2025-06-23 14:42 | DI.RAD.S_ITS ---
PROCEDURE: XR CHEST 1V
[2025-06-23 14:53] LABS: Add Manual Diff / Slide Review NO; Hematocrit 35.0 % (36-46); Hemoglobin 11.4 g/dL (12.0-16.0); Lymphocytes Absolute Auto 600 /uL (1100-4500); Mean Corpuscular HGB Conc 32.7 % (30-36); Mean Corpuscular Hemoglobin 30.9 PG (26-34); Mean Corpuscular Volume 94.4 fL (80-100); Platelet Count 104 X10^3/uL (150-400)
[2025-06-23 14:58] LABS: Alanine Aminotransferase 39 IU/L (<35); Albumin 4.5 g/dL (3.5-5.0); Albumin Globulin Ratio 1.4 (1.0-2.8); Alkaline Phosphatase 69 U/L (38-126); Blood Urea Nitrogen 28 mg/dL (7-17); Calcium 9.3 mg/dL (8.4-10.2); Carbon Dioxide 28 mmol/L (22-32); Chloride 103 mmol/L (98-107); Estimated Glomerular Filt Rate 58 mL/min (>60); Globulin 3.2 g/dL (1.7-4.1); Glucose 94 mg/dL (70-99); HEMOLYSIS 21 (0-50); Lipase 85 U/L (23-300); Magnesium 1.9 mg/dL (1.6-2.3); Potassium 4.5 mmol/L (3.4-5.1); Sodium 139 mmol/L (137-145); Total Protein 7.7 g/dL (6.3-8.2)
[2025-06-23 15:11] LABS: NT-proBNP (BNP-Adult 18+) 11500 pg/mL (<450); Troponin I 0.060 ng/mL (0.01-0.034)
--- NOTE | 2025-06-23 15:53 | DI.US.S_ITS ---
PROCEDURE: US ABDOMEN LIMITED
[2025-06-23] MEDS: FUROSEMIDE 40 MG/4 ML VIAL IV (15:55)
--- NOTE | 2025-06-23 17:44 | P.HP_ITS ---
History of Present Illness
--- NOTE | 2025-06-23 17:44 | PM.HP.IH.1 ---
History of Present Illness History of Present Illness Date Patient Seen: 06/24/25 Time Patient Seen: 07:19 Chief complaint: SOB 1 week Narrative: 89-year-old female with a history of chronic shortness of breath known history of congestive heart failure diastolic status post TAVR procedure atrial fibrillation with a pacemaker. Patient has a history of chronic shortness of breath and anemia. She presented to the emergency department with worsening shortness of breath. Patient was found to have an elevated BNP as well as chest x-ray that was showed signs of pulmonary vascular congestion. At times she required a small amount of oxygen when she ambulated. Emergency department requested her to be admitted to the hospital for further evaluation. On my evaluation cell he is is says she is doing well. She says she is short of breath she is tired. She has not recognized fast or slow heart rate. She does have a pacemaker. She says that she is chronically weak and tired. She requires assistance at home with walking. She says she has not had any chest pain. She says she is eating well and her bowels are working well. She says she is taking her medication regularly and recently increased her home furosemide dosing because she felt more short of breath for the last 4 days. She has not sure if that made a difference or not. [facility] Medical History T8 vertebral fracture History of cardioversion Pacemaker (10/23/21) History of COVID-19 (05/19/21) Compression fracture of body of thoracic vertebra Dyspnea on exertion T9 vertebral fracture T7 vertebral fracture Back pain Somatic dysfunction of thoracic region Somatic dysfunction of rib Somatic dysfunction of upper extremity Somatic dysfunction of pelvic region Somatic dysfunction of lower extremity Sacral region somatic dysfunction Lumbar region somatic dysfunction Cranial somatic dysfunction Cervical (neck) region somatic dysfunction Somatic dysfunction of abdominal region Presence of cardiac pacemaker COPD exacerbation Abdominal ascites Elevated TSH Urinary leakage Urinary incontinence Hyperlipidemia Osteoporosis (~1989) Foot deformities, congenital Aortic valve stenosis (11/09/13) Surgical History History of cardiac radiofrequency ablation (10/29/21) Hx of bilateral cataract extraction (2006) Personal history of tricuspid valve disease History of aortic valve replacement with bioprosthetic valve (07/18/16) History of carpal tunnel release Normal colonoscopy (2005) History of tonsillectomy Family History Brother Hyperlipidemia Hypertension Sister Age: 77 Ovarian cancer Father No problems noted. Mother No problems noted. Other Breast cancer CAD (coronary artery disease) Colorectal cancer Diabetes mellitus Social History marital status: details: 62 yo son, Surya, living with her (11/30/23) number of children: 3 household members: children lives independently: Yes caregiver/support person: Yes housing: house occupational status: other Smoking Status: Never smoker alcohol intake: current Meds Home Medications and Allergies Home Medications ?Medication ?Instructions ?Recorded ?Confirmed ?Type Disabled Parking #1 ea 09/08/22 06/23/25 Rx cholecalciferol (vitamin D3) 125 125 mcg PO DAILY 01/20/23 06/23/25 History mcg (5,000 unit) capsule ascorbic acid (vitamin C) 1,000 mg 1,200 mg PO DAILY 01/21/23 06/23/25 History tablet latanoprost 0.005 % eye drops 1 drp EYE-BOTH DAILY 02/05/23 06/23/25 History lidocaine 3 %-hydrocortisone 0.5 % 1 applic AL BEDTIME PRN 09/14/23 06/23/25 Rx rectal cream hemorrhoids #98 grams torsemide 10 mg tablet 10 mg PO DAILY 10/06/23 06/23/25 History losartan 25 mg tablet 12.5 mg PO DAILY 04/06/24 06/23/25 History levothyroxine 50 mcg tablet 50 mcg PO DAILY #90 tabs 05/09/24 06/23/25 Rx aspirin 81 mg tablet,delayed 81 mg PO DAILY 09/05/24 06/23/25 History release acetaminophen 300 mg-codeine 30 mg 1 tab PO TID PRN Pain #90 tabs 02/16/25 06/23/25 Rx tablet calcitonin (salmon) 200 1 spray intranasal (ALT) DAILY 02/16/25 06/23/25 Rx unit/actuation nasal spray sacral fx 3 months #3.7 mL calcium carbonate 600 mg PO BID 02/16/25 06/23/25 History diltiazem HCl 180 mg 360 mg PO DAILY 06/23/25 06/23/25 History capsule,extended release 24 hr (Cartia XT) Allergies Allergy/AdvReac Type Severity Reaction Status Date / Time No Known Drug Allergies Allergy Verified 06/23/25 13:54 Exam Vital Signs (past 8 hours): - 06/23/25 13:53 06/23/25 14:18 06/23/25 14:30 Temperature 98.2 F Pulse Rate 66 69 69 Respiratory Rate 18 20 20 Blood Pressure 156/71 H Pulse Oximetry 96 97 95 Oxygen Delivery Method Room Air 06/23/25 14:30 06/23/25 15:00 06/23/25 15:00 Temperature Pulse Rate 69 Respiratory Rate 20 Blood Pressure 129/63 137/69 Pulse Oximetry 95 Oxygen Delivery Method 06/23/25 15:30 06/23/25 15:30 06/23/25 16:00 Temperature Pulse Rate 69 69 Respiratory Rate 19 22 Blood Pressure 141/75 H Pulse Oximetry 95 96 Oxygen Delivery Method 06/23/25 16:00 06/23/25 16:26 06/23/25 16:26 Temperature Pulse Rate 69 Respiratory Rate 22 Blood Pressure 127/87 152/76 H Pulse Oximetry 98 Oxygen Delivery Method 06/23/25 16:30 06/23/25 16:30 06/23/25 17:00 Temperature Pulse Rate 70 Respiratory Rate 22 Blood Pressure 163/75 H 156/77 H Pulse Oximetry 94 Oxygen Delivery Method 06/23/25 17:00 Temperature Pulse Rate 69 Respiratory Rate 22 Blood Pressure Pulse Oximetry 93 Oxygen Delivery Method Oxygen Delivery Method Room Air Narrative Exam Narrative: Gen.: Alert good historian HEENT: Pupils equal round and reactive or mucosa is moist Cardio: S1-S2 irregular rhythm systolic murmur present Respiratory: Mild increased work of breathing with crackles at lung bases Abdomen: Soft nontender no rebound or guarding no liver spleen enlargement no appreciable hernias Extremities: Some trace edema in the lower extremities warm dry perfused Neurologic: No focal neurological deficits Objective Labs 06/24/25 04:10 06/24/25 04:10 Labs: Laboratory Results - last 24 hr 06/23/25 14:14 WBC 6.5 RBC 3.71 L Hgb 11.4 L Hct 35.0 L MCV 94.4 MCH 30.9 MCHC 32.7 RDW 14.4 Plt Count 104 L Neut % (Auto) 75.9 H Lymph % (Auto) 9.6 L [place] % (Auto) 9.7 Eos % (Auto) 3.7 Baso % (Auto) 1.1 Neut # (Auto) 4900 Lymph # (Auto) 600 L [place] # (Auto) 600 Eos # (Auto) 200 Baso # (Auto) 100 Sodium 139 Potassium 4.5 Chloride 103 Carbon Dioxide 28 BUN 28 H Creatinine 0.94 Estimated GFR 58 L BUN/Creatinine Ratio 29.8 H Glucose 94 Calcium 9.3 Magnesium 1.9 Total Bilirubin 2.0 H AST 61 H ALT 39 H Alkaline Phosphatase 69 Troponin I 0.060 H NT-Pro-B Natriuret Pep 97981 H Total Protein 7.7 Albumin 4.5 Globulin 3.2 Albumin/Globulin Ratio 1.4 Lipase 85 Assessment & Plan Assessment and plan (1) CHF (congestive heart failure): Qualifiers: Heart failure type: diastolic Heart failure chronicity: acute Qualified Code(s): I50.31 - Acute diastolic (congestive) heart failure Status: Acute Plan Congestive heart failure acute presumed diastolic repeat echocardiogram as it has been a couple of years. She has signs of edema some pleural congestion elevated BNP and increasing shortness of breath. She will be started on Lasix 40 mg twice a day. She will be continued on her diltiazem and losartan which she has been taking regularly. Will monitor her electrolytes and kidney function. Will continue with oxygen as needed to support respiratory status. We will work on physical therapy and occupational therapy. Cardiac enzymes have been mildly elevated but are not significantly increasing. Most likely due to demand type of ischemia. Repeat cardiac enzyme this morning was negative EKG shows paced rhythm. Transaminitis. Patient has mild elevation of liver enzymes and bilirubin. This is presumed due to congestion of the liver due to heart failure. We will candidate continue to monitor liver enzymes and bilirubin. Ultrasound of the liver was done yesterday which showed no acute concerning findings. Aortic stenosis. Patient with previous TAVR procedure. She has a systolic murmur. Repeat echocardiogram today. Hypothyroidism. Patient on thyroid replacement Pacemaker implantation due to underlying heart disease. Hypertension. Patient's blood pressure medication will be continued. Hyperlipidemia patient's statin was stopped History of atrial fibrillation. Patient is currently not on anticoagulation. Due to risk of age and falls. Disposition and plan. Anticipate hospitalization for 2 midnights for improvement of congestive heart failure. Disposition plan potentially home versus retirement facility. Time-Based Coding :: [TOTAL MINUTES] spent with patient and on the chart (including review of chart, obtaining history, exam, reviewing outside data, placing orders, documenting exam and treatment plan, and counseling patient) on [DATE]. PROFEE Micro Photographer Document charge(s): Yes Charge Codes Initial inpatient/observation care: 80116
[2025-06-23 18:34] LABS: Troponin I 0.069 ng/mL (0.01-0.034)
[2025-06-23] MEDS: DOCUSATE 100 MG CAPSULE PO (20:50)
[2025-06-24] MEDS: FUROSEMIDE 40 MG/4 ML VIAL IV ×2 (01:54→09:28)
[2025-06-24 02:00] VITALS: BP 155/81; PULSE 70; RESP 18; TEMP 36.2; O2SAT 95
[2025-06-24 05:22] LABS: Add Manual Diff / Slide Review NO; Hematocrit 33.5 % (36-46); Hemoglobin 11.1 g/dL (12.0-16.0); Lymphocytes Absolute Auto 1000 /uL (1100-4500); Mean Corpuscular HGB Conc 33.2 % (30-36); Mean Corpuscular Hemoglobin 30.8 PG (26-34); Mean Corpuscular Volume 92.9 fL (80-100); Platelet Count 97 X10^3/uL (150-400)
[2025-06-24 05:34] LABS: Alanine Aminotransferase 33 IU/L (<35); Albumin 3.8 g/dL (3.5-5.0); Albumin Globulin Ratio 1.4 (1.0-2.8); Alkaline Phosphatase 56 U/L (38-126); Blood Urea Nitrogen 32 mg/dL (7-17); Calcium 9.3 mg/dL (8.4-10.2); Carbon Dioxide 35 mmol/L (22-32); Chloride 96 mmol/L (98-107); Estimated Glomerular Filt Rate 44 mL/min (>60); Globulin 2.7 g/dL (1.7-4.1); Glucose 97 mg/dL (70-99); HEMOLYSIS < 15 (0-50); Magnesium 1.6 mg/dL (1.6-2.3); Potassium 4.4 mmol/L (3.4-5.1); Sodium 136 mmol/L (137-145); Total Protein 6.5 g/dL (6.3-8.2)
[2025-06-24 05:36] LABS: Creatine Kinase 82 U/L (30-135)
[2025-06-24 05:45] LABS: Troponin I 0.074 ng/mL (0.01-0.034)
[2025-06-24] MEDS: LEVOTHYROXINE 50 MCG TABLET PO (06:00)
[2025-06-24 08:00] VITALS: BP 137/67; PULSE 69; RESP 20; TEMP 36.1; O2SAT 95
[2025-06-24] MEDS: LOSARTAN 25 MG TABLET PO (09:28)
[2025-06-24] MEDS: DOCUSATE 100 MG CAPSULE PO ×2 (09:28→20:33)
[2025-06-24] MEDS: SPIRONOLACTONE 25 MG TABLET PO (09:28)
[2025-06-24] MEDS: ASPIRIN EC 81 MG TABLET PO (09:28)
[2025-06-24] MEDS: ENOXAPARIN 30 MG/0.3 ML SYRINGE SUBCUT (09:29)
[2025-06-24] MEDS: SODIUM CHLORIDE 0.9% FLUSH 10 ML IV ×2 (09:29→20:33)
[2025-06-24] MEDS: MAGNESIUM CHLORIDE 64 MG TABLET 128 MG PO (09:31)
--- NOTE | 2025-06-24 14:52 | CM.DANOTE ---
Initial DCP Assessment Note. Review EMR and PT Interview. Met with patient at bedside to discuss discharge needs.PT is alert x 3 sitting up in bed. No acute distress. Patient uses walker. Her son, Surya, lives with her. Payor:??[facility] PCP: Summary & Plan:?89 y/o female arrived to ED VIA POV c/o SOB. Admitted OBS. Dx. CHF. Plan: Lasix, Echo and recheck labs in AM. Possible PT eval prior to DC. Discharge Planning/Care Management CM Discharge Assessment Start: 06/23/25 17:17 Freq: Status: Active Protocol: Document 06/24/25 14:50 SM (Rec: 06/24/25 14:52 [id number]) Discharge Planning Assessment Assigned Discharge Maria E Miller RN CM Customer Account Specialist Provider Dr. Rangel Insurance Medicare Advance Directives? Yes: POLST/Health Care Directive Advance Directives Yes on File History Provided By Patient,Medical Record Has Patient been No admitted in last 30 days? Prior Living House Arrangements Household Members children Type of Relies on Others transporation used prior to admit Independent with ADL No: uses walker 's Is patient alert and Yes oriented? Needs Assistance Meal Prep,Managing Medications,Home Chores / Shopping With Caregiver for No Another DME Already Rented / Bath Bench,FWW / Walker,Cane Owned Comment TBD Comment Need PT eval Discharge Plan Home Transportation Son Arrangement Additional Comment TBD Review Status In Process Please Provide Date 06/24/25 Initial DC Assessment Was Performed Next Review Type Continued Stay Review
[2025-06-24 19:00] VITALS: BP 105/50; PULSE 77; RESP 19; TEMP 36.3; O2SAT 97
[2025-06-25] MEDS: LEVOTHYROXINE 50 MCG TABLET PO (06:01)
[2025-06-25 06:16] LABS: Add Manual Diff / Slide Review NO; Hematocrit 35.6 % (36-46); Hemoglobin 12.0 g/dL (12.0-16.0); Lymphocytes Absolute Auto 1000 /uL (1100-4500); Mean Corpuscular HGB Conc 33.6 % (30-36); Mean Corpuscular Hemoglobin 30.9 PG (26-34); Mean Corpuscular Volume 91.9 fL (80-100); Platelet Count 116 X10^3/uL (150-400)
[2025-06-25 06:27] LABS: Alanine Aminotransferase 27 IU/L (<35); Albumin 3.8 g/dL (3.5-5.0); Albumin Globulin Ratio 1.4 (1.0-2.8); Alkaline Phosphatase 64 U/L (38-126); Blood Urea Nitrogen 43 mg/dL (7-17); Calcium 8.7 mg/dL (8.4-10.2); Carbon Dioxide 35 mmol/L (22-32); Chloride 96 mmol/L (98-107); Estimated Glomerular Filt Rate 40 mL/min (>60); Globulin 2.8 g/dL (1.7-4.1); Glucose 92 mg/dL (70-99); HEMOLYSIS < 15 (0-50); Potassium 4.2 mmol/L (3.4-5.1); Sodium 138 mmol/L (137-145); Total Protein 6.6 g/dL (6.3-8.2)
[2025-06-25 06:29] LABS: Magnesium 1.8 mg/dL (1.6-2.3)
[2025-06-25 08:00] VITALS: BP 109/58; PULSE 74; RESP 21; TEMP 36.1; O2SAT 93
[2025-06-25 09:05] VITALS: BP 109/58; PULSE 71
[2025-06-25] MEDS: SPIRONOLACTONE 25 MG TABLET PO (09:05)
[2025-06-25] MEDS: ASPIRIN EC 81 MG TABLET PO (09:05)
[2025-06-25] MEDS: ENOXAPARIN 30 MG/0.3 ML SYRINGE SUBCUT (09:05)
[2025-06-25] MEDS: DOCUSATE 100 MG CAPSULE PO (09:05)
[2025-06-25] MEDS: LOSARTAN 25 MG TABLET PO (09:05)
[2025-06-25] MEDS: SODIUM CHLORIDE 0.9% FLUSH 10 ML IV (09:06)
--- NOTE | 2025-06-25 10:01 | P.DS_ITS ---
History of Present Illness
--- NOTE | 2025-06-25 10:01 | PM.DS.IH.1 ---
History of Present Illness History of Present Illness Chief complaint: SOB 1 week Narrative: 89-year-old female with a history of chronic shortness of breath known history of congestive heart failure diastolic status post TAVR procedure atrial fibrillation with a pacemaker. Patient has a history of chronic shortness of breath and anemia. She presented to the emergency department with worsening shortness of breath. Patient was found to have an elevated BNP as well as chest x-ray that was showed signs of pulmonary vascular congestion. At times she required a small amount of oxygen when she ambulated. Emergency department requested her to be admitted to the hospital for further evaluation. On my evaluation cell he is is says she is doing well. She says she is short of breath she is tired. She has not recognized fast or slow heart rate. She does have a pacemaker. She says that she is chronically weak and tired. She requires assistance at home with walking. She says she has not had any chest pain. She says she is eating well and her bowels are working well. She says she is taking her medication regularly and recently increased her home furosemide dosing because she felt more short of breath for the last 4 days. She has not sure if that made a difference or not. Discharge Providers Provider Date of admission: 06/23/25 17:12 Discharge Date: 06/25/25 Primary care physician: Jonn Rangel MD Consults: 06/23/25 20:57 Consult to Pharmacy Routine Comment: has more than two diagnosis Discharge provider: Jonn Rangel MD Summary Hospital Course Discharge Diagnosis: Acute diastolic heart failure Transaminitis Aortic stenosis status post TAVR procedure Hypothyroidism Pacemaker Hypertension Hyperlipidemia Atrial fibrillation Hospital Course: 89-year-old female known history of heart disease with history of heart failure atrial fibrillation aortic valve replacement TAVR procedure with chronic shortness of breath admitted to the hospital with acute shortness of breath and due to elevated BNP signs of pulmonary congestion requiring oxygen. She was admitted to the hospital and had diuresis. Patient diuresed well. By the time of discharge her shortness [place] breath was back to baseline status. Which she is chronically. Her oxygen level went from requiring oxygen to not requiring oxygen. She was diuresed with IV Lasix and then switched to oral spironolactone at home. She has not anticoagulated because of her age and fall risk. Exam Vital Signs (past 8 hours): - 06/25/25 08:00 06/25/25 09:05 Temperature 96.9 F L Pulse Rate 74 71 Respiratory Rate 21 Blood Pressure 109/58 L 109/58 L Pulse Oximetry 93 Oxygen Flow Rate 0 Oxygen Delivery Method Room Air Oxygen Flow Rate 0 Objective Labs 06/25/25 05:40 06/25/25 05:40 Labs: Laboratory Results - last 24 hr 06/24/25 06/25/25 22:26 05:40 WBC 7.5 RBC 3.88 L Hgb 12.0 Hct 35.6 L MCV 91.9 MCH 30.9 MCHC 33.6 RDW 13.8 Plt Count 116 L Neut % (Auto) 67.1 Lymph % (Auto) 13.3 L [place] % (Auto) 10.8 Eos % (Auto) 7.7 H Baso % (Auto) 1.1 Neut # (Auto) 5000 Lymph # (Auto) 1000 L [place] # (Auto) 800 Eos # (Auto) 600 H Baso # (Auto) 100 Sodium 138 Potassium 4.2 Chloride 96 L Carbon Dioxide 35 H BUN 43 H Creatinine 1.30 H Estimated GFR 40 L BUN/Creatinine Ratio 33.1 H Glucose 92 POC Whole Bld Glucose 297 H Calcium 8.7 Magnesium 1.8 Total Bilirubin 1.5 H AST 38 H ALT 27 Alkaline Phosphatase 64 Total Protein 6.6 Albumin 3.8 Globulin 2.8 Albumin/Globulin Ratio 1.4 PFSH Medical History T8 vertebral fracture History of cardioversion Pacemaker (10/23/21) History of COVID-19 (05/19/21) Compression fracture of body of thoracic vertebra Dyspnea on exertion T9 vertebral fracture T7 vertebral fracture Back pain Somatic dysfunction of thoracic region Somatic dysfunction of rib Somatic dysfunction of upper extremity Somatic dysfunction of pelvic region Somatic dysfunction of lower extremity Sacral region somatic dysfunction Lumbar region somatic dysfunction Cranial somatic dysfunction Cervical (neck) region somatic dysfunction Somatic dysfunction of abdominal region Presence of cardiac pacemaker COPD exacerbation Abdominal ascites Elevated TSH Urinary leakage Urinary incontinence Hyperlipidemia Osteoporosis (~1989) Foot deformities, congenital Aortic valve stenosis (11/09/13) Surgical History History of cardiac radiofrequency ablation (10/29/21) Hx of bilateral cataract extraction (2006) Personal history of tricuspid valve disease History of aortic valve replacement with bioprosthetic valve (07/18/16) History of carpal tunnel release Normal colonoscopy (2005) History of tonsillectomy Family History Brother Hyperlipidemia Hypertension Sister Age: 77 Ovarian cancer Father No problems noted. Mother No problems noted. Other Breast cancer CAD (coronary artery disease) Colorectal cancer Diabetes mellitus Social History marital status: details: 62 yo sonSurya, living with her (11/30/23) number of children: 3 household members: children lives independently: Yes caregiver/support person: Yes housing: house occupational status: other Smoking Status: Never smoker alcohol intake: current Discharge Plan Discharge Plan Patient Disposition: Home Discharge orders & Medications Prescriptions: New spironolactone 25 mg tablet 12.5 mg PO DAILY Qty: 30 0RF Continued latanoprost 0.005 % drops 1 drp EYE-BOTH DAILY (DME) Disabled Parking See Rx Instructions .ROUTE .MEDSUPPLY Qty: 1 0RF Rx Instructions: I find this patient to be medically disabled and qualified for Disabled Parking as indicated, and signed, on the Accompanying Disabled Parking Application for Individuals cholecalciferol (vitamin D3) 125 mcg (5,000 unit) capsule 125 mcg PO DAILY ascorbic acid (vitamin C) 1,000 mg tablet 1,200 mg PO DAILY lidocaine HCl-hydrocortison ac 3-0.5 % cream 1 applic MD BEDTIME PRN (Reason: hemorrhoids) Qty: 98 0RF levothyroxine 50 mcg tablet 50 mcg PO DAILY Qty: 90 3RF aspirin 81 mg tablet,delayed release (DR/EC) 81 mg PO DAILY calcium carbonate 600 mg calcium (1,500 mg) tablet 600 mg PO BID calcitonin (salmon) 200 unit/actuation spray,non-aerosol 1 spray intranasal (ALT) DAILY 90 Days Qty: 3.7 2RF Rx Instructions: sacral fx acetaminophen-codeine 300-30 mg tablet 1 tab PO TID PRN (Reason: Pain) Qty: 90 3RF Rx Instructions: Take one tablet up to 2 times daily as needed for back pain diltiazem HCl [Cartia XT] 180 mg capsule,extended release 24hr 360 mg PO DAILY losartan 25 mg tablet 12.5 mg PO DAILY Discontinued torsemide 10 mg tablet 10 mg PO DAILY Patient Comments: USUALLY EVERY OTHER DAY BUT RIGHT NOW TAKING DAILY Follow up/Referrals: Jonn Rangel MD [Primary Care Provider, Family Practice] Visit Report/Discharge Packet Stand Alone Forms: Patient Portal/API, Stroke Signs & Symptoms Discharge Data Primary Care Provider: Jonn Rangel Attending Provider: Jonn Rangel Admit Date/Time: 06/23/25 17:12 Quality VTE Deep Vein Thrombosis/Pulmonary Embolism Present on Admission: No IH PROFEE Charge Codes Discharge inpatient/observation: [id number]
--- NOTE | 2025-06-25 10:50 | CM.DPNOTE ---
DCP Note FISHER WEIR reviewed EMR per RN, doing well. echo pending. plan to dc home today with son support. indep in room with mobility. no new CM needs. per Claire, cleared to dc home today. P: anticipate dc home with son support and OP f/u as needed today. no identified CM needs at this time. will continue to follow as needed in case any additional DCP needs should arise VIVI Marroquin
== END 2025-06-25 12:45 | disposition home or self-care (01) ==
LOC: ED 17:12 → AC 17:12
PROVIDERS: Family Medicine; Admitting Provider Family Medicine; Emergency Provider Emergency Medicine; Family Provider Family Medicine; PCP Family Medicine; Referring Provider Emergency Medicine; Visit Provider Family Medicine
DX: I11.0 Hypertensive heart disease with heart failure (principal); I50.31 Acute diastolic (congestive) heart failure; R74.01 Elevation of levels of liver transaminase levels; I35.0 Nonrheumatic aortic (valve) stenosis; I48.91 Unspecified atrial fibrillation; R01.1 Cardiac murmur, unspecified; E03.9 Hypothyroidism, unspecified; D64.9 Anemia, unspecified; E78.5 Hyperlipidemia, unspecified; Z95.0 Presence of cardiac pacemaker; Z95.2 Presence of prosthetic heart valve; Z79.82 Long term (current) use of aspirin
CPT/HCPCS: 36415; 71045; 76705; 80053; 82550; 82962; 83690; 83735; 83880; 84484; 85025; 93005; 93306; 96372; 96374; 96376; 99223; 99238; 99284; G0378; J1650; J1938